=== PATIENT | female | born 1960 | race Caucasian/White ===

== ENCOUNTER 2020-03-27 23:16 | Inpatient (IN) ==
[2020-03-28 00:30] LABS: Alanine Aminotransferase 24 U/L (12-78); Albumin Level 3.1 gm/dl (3.4-5.0); Aspartate Aminotransferase 37 U/L (15-37); BUN Creatinine Ratio 10.6 (10-20); Blood Urea Nitrogen 7 mg/dl (7-18); Calcium 8.7 mg/dl (8.5-10.1); Carbon Dioxide 25 mmol/L (21-32); Chloride 103 mmol/L (98-107); Est GFR (African American) 112.4; Glucose 189 mg/dl (70-99); Lipase 159 U/L (73-393); Potassium 3.5 mmol/L (3.5-5.1); Sodium 136 mmol/L (136-145)
[2020-03-28 00:33] LABS: Albumin Globulin Ratio 0.6 (0.9-2); Alkaline Phosphatase 82 U/L (45-117); Bilirubin,Total 2.3 mg/dl (0.2-1); Globulin 5.2 gm/dl (2.5-4.0); Hematocrit (blood only) 40.4 % (37-47); Hemoglobin 14.2 g/dL (12.0-16.0); Mean Corpuscular Hemoglobin 30.9 pg (25-34); Mean Corpuscular Hgb Conc 35.1 g/dL (32-36); Mean Platelet Volume 12.5 fL (7.4-10.4); Platelet Count 64 K/uL (130-400); RDW Coefficient of Variation 14.4 % (11.5-14.5); Red Blood Count 4.59 M/uL (4.2-5.4); Total Protein 8.3 gm/dl (6.4-8.2); White Blood Count 5.47 K/uL (4.8-10.8)
[2020-03-28 00:34] LABS: Appearance Urine Clear (Clear); Bacteria Urine Automated Negative (Negative); Basophils # (auto) 0.01 K/uL (0-0.2); Basophils % (auto) 0.2 %; Bilirubin Urine Negative (Negative); Blood Urine Negative (Negative); Color Urine Dark Yellow; Eosinophils # (auto) 0.08 K/uL (0-0.5); Eosinophils % (auto) 1.5 %; Epithelial Cell Urine Auto >30 /lpf (0-5); Glucose Urine UA Negative (Negative); Immature Granulocytes # (auto) 0.01 K/uL (0.00-0.02); Immature Granulocytes % (auto) 0.2 %; Ketones Urine 1+ (Negative); Leukocyte Esterase Urine 1+ (Negative); Lymphocytes # (auto) 0.93 K/uL (1.2-3.4); Monocytes # (auto) 0.36 K/uL (0.11-0.59); Monocytes % (auto) 6.6 %; Neutrophils # (auto) 4.08 K/uL (1.4-6.5); Neutrophils % (auto) 74.5 %; Nitrite Urine Negative (Negative); Platelet Estimate Decreased (Normal); Protein Urine Negative (Negative); RBC Urine Automated 0-4 /hpf (0-4); Specific Gravity Urine 1.014 (1.000-1.030); Urobilinogen Urine Positive (Negative); pH Urine 6.5 (4.5-7.5)
[2020-03-28] MEDS ORDERED: HYDROmorphone INJ 0.5 MG/0.5 ML SYR IV STA ×2 (00:49→02:14)
[2020-03-28] MEDS ORDERED: ONDANSETRON INJ 2 MG/ML 2 ML VIAL IV STA (00:49)
[2020-03-28 01:03] LABS: INR 1.3 (0.9-1.1); Partial Thromboplastin Ratio 1.1; Partial Thromboplastin Time 29.3 Seconds (21.0-31.0); Prothrombin Time 13.6 Seconds (9.0-12.0)
[2020-03-28] MEDS ORDERED: IOVERSOL 100ml IV ONE (01:12)
[2020-03-28] MEDS ORDERED: NORCO 5/325MG HOMEPACK PO ONE (02:01)
[2020-03-28] MEDS ORDERED: LORazepam 0.5 MG/1 ML VIAL IV STA (02:20)
--- NOTE | 2020-03-28 02:31 | Emergency Department Note ---
History of Present Illness General Chief complaint: Pain (Generalized) Stated complaint: PAIN IN LIVER Source: patient, family (Son at the bedside), RN notes reviewed and old records reviewed (Previous hospitalizations) Mode of arrival: ambulatory Limitations: language barrier and patient cooperation (Pain, inability to cooperate) History of Present Illness Provider complaint: Upper abdominal pain Maximum Pain Intensity: 10 This patient is a 59-year-old female who presents emergency department with her son who states she was diagnosed in January during a hospitalization in [place] with cirrhosis of the liver, ascites, hepatitis C and diabetes. Patient apparently presented to the hospital at that time with increased abdominal girth and pain. She was visiting [place] at that time. Last week she was visiting in the [place] area and was hospitalized for umbilical leaking of ascites. Son does have some records. He states prior to this the patient had not seen a physician in years. She was unaware of her diagnosis of hepatitis C. She denies any alcohol ingestion. She has not yet established care in our area with her primary care physician or tooth cutter spur. Patient is [place]an-speaking only and unable to cooperate due to pain/agitation. Much of the history is obtained through the son. She has not had any recent fevers, cough, shortness of breath. Home Medications Medication Instructions Recorded Confirmed Type furosemide 40 mg PO DAILY 03/27/20 03/27/20 History spironolactone 50 mg PO DAILY 03/27/20 03/27/20 History Allergies Allergy/AdvReac Type Severity Reaction Status Date / Time No Known Allergies Allergy Unverified 03/28/20 01:49 Past Med/Surg History Medical History Back pain Cirrhosis of liver Hepatitis C Social History Smoking Status: Never smoker Hx Alcohol Use: No Hx Substance Use: No (Per son) Preferred Language: [place] Communication Ability: Effective Communication Tools: IPad, Letter Board, Physical Gestures and Lip Movement/Reading Skin Carver Required: Yes Beliefs That Will Affect Care: None marital status: Single Current Living Situation: Family Other Information That Helps Us Care for You: No Feels Safe at Home: Yes Assistive Devices: None Review of Systems See HPI for pertinent positives & negatives. and A total of 10 systems reviewed and were otherwise negative Physical Exam Vital Signs Vital Signs - 24 hr 03/27/20 23:26 03/28/20 00:06 03/28/20 01:55 Temperature 36.8 C Temperature Source Temporal Artery Scan Pulse Rate 81 Pulse Rate [Right] 79 84 Pulse Rhythm [Right] Regular Regular Pulse Strength [Right] Normal Normal Respiratory Rate 20 16 20 Respiratory Effort / Characteristics Non-Labored Spontaneous Non-Labored Spontaneous Respiratory Depth Normal Normal Normal Blood Pressure 139/82 Blood Pressure [Right Arm] 132/66 163/97 H Blood Pressure Mean 101 Blood Pressure Mean [Right Arm] 88 119 Blood Pressure Position [Right Arm] Lying Pulse Oximetry 97 96 92 Oxygen Delivery Method Room Air Room Air Room Air Sepsis Recent Fever Within 48 Hours No Sepsis New/Unexplained Change in Mental Status N/A Sepsis Action Taken by Nursing No Action Required Vital signs reviewed. General: Chronically ill-appearing 59-year-old female, agitated, restless, rolling around the bed and moaning/yelling. HEENT: Mild scleral icterus, PERRLA, neck supple. Dry mucous membranes. Cardiovascular: Regular rate and rhythm, no extra sounds. Pulmonary: Clear to auscultation bilaterally, normal work of breathing. Abdomen: Soft, nontender, distended, positive bowel sounds. Postsurgical change noted at the umbilicus Musculoskeletal: Atraumatic, minimal peripheral edema Neurologic: Patient awake alert and answers some questions but unable to cooperate due to pain/agitation Skin: Warm, dry, venous stasis changes of the bilateral lower extremities Course Administered Medications Enoxaparin Sodium (Enoxaparin 100 Mg/1ml Syr) 100 mg SQ Q12H JOSE DAVID Stop: 04/27/20 10:29 Last Admin: 03/31/20 09:00 Dose: 100 mg Documented by: [id number] Admin: 03/30/20 20:06 Dose: 100 mg Documented by: [id number] Admin: 03/30/20 09:48 Dose: 100 mg Documented by: [id number] Admin: 03/29/20 21:48 Dose: 100 mg Documented by: [id number] Admin: 03/29/20 09:52 Dose: 100 mg Documented by: [id number] Admin: 03/28/20 21:34 Dose: 100 mg Documented by: [id number] Admin: 03/28/20 14:08 Dose: 100 mg Documented by: [id number] Insulin Aspart (Insulin Aspart 100 Units/Ml 3 Ml Pen) 0 units SC ACHS JOSE DAVID Stop: 04/27/20 11:29 Last Admin: 03/31/20 12:50 Dose: 3 units Documented by: [id number] Cosigned by: [id number] Admin: 03/31/20 08:56 Dose: 2 units Documented by: [id number] Cosigned by: [id number] Admin: 03/30/20 20:06 Dose: 1 units Documented by: [id number] Cosigned by: [id number] Admin: 03/30/20 17:58 Dose: 3 units Documented by: [id number] Cosigned by: [id number] Admin: 03/30/20 13:18 Dose: 8 units Documented by: [id number] Cosigned by: [id number] Admin: 03/30/20 09:45 Dose: 4 units Documented by: [id number] Cosigned by: [id number] Admin: 03/29/20 20:53 Dose: 4 units Documented by: [id number] Cosigned by: [id number] Admin: 03/29/20 18:01 Dose: 6 units Documented by: [id number] Cosigned by: [id number] Admin: 03/29/20 13:16 Dose: 6 units Documented by: [id number] Cosigned by: [id number] Admin: 03/29/20 09:54 Dose: 3 units Documented by: [id number] Cosigned by: [id number] Admin: 03/28/20 21:18 Dose: 3 units Documented by: [id number] Cosigned by: [id number] Admin: 03/28/20 18:14 Dose: 6 units Documented by: [id number] Cosigned by: [id number] Admin: 03/28/20 15:29 Dose: 4 units Documented by: [id number] Cosigned by: [id number] Insulin Glargine (Insulin Glargine Solostar 100 Units/Ml 3 Ml Pen) 0 units SC BID JOSE DAVID; Protocol Stop: 04/28/20 20:59 Last Admin: 03/31/20 08:59 Dose: 10 units Documented by: [id number] Cosigned by: [id number] Admin: 03/30/20 20:05 Dose: 10 units Documented by: [id number] Cosigned by: [id number] Admin: 03/30/20 09:54 Dose: 10 units Documented by: [id number] Cosigned by: [id number] Admin: 03/29/20 20:54 Dose: 10 units Documented by: [id number] Cosigned by: [id number] Morphine Sulfate (Morphine Sulfate 2 Mg/Ml Carp) 2 mg IV Q4H PRN PRN Reason: severe breakthrough pain Stop: 04/11/20 05:07 Last Admin: 03/31/20 10:51 Dose: 2 mg Documented by: [id number] Admin: 03/29/20 14:50 Dose: 2 mg Documented by: [id number] Admin: 03/29/20 07:37 Dose: 2 mg Documented by: [id number] Ondansetron HCl (Ondansetron 4 Mg Od Tab) 4 mg PO Q4H [facility] Stop: 04/29/20 14:29 Last Admin: 03/31/20 14:49 Dose: 4 mg Documented by: [id number] Admin: 03/31/20 10:51 Dose: 4 mg Documented by: [id number] Admin: 03/31/20 06:20 Dose: Not Given Documented by: [id number] Admin: 03/31/20 04:53 Dose: Not Given Documented by: [id number] Admin: 03/30/20 23:51 Dose: Not Given Documented by: [id number] Admin: 03/30/20 18:01 Dose: 4 mg Documented by: [id number] Admin: 03/30/20 15:52 Dose: 4 mg Documented by: [id number] Polyethylene Glycol (Polyethylene (Miralax) 17 Gm Pack) 17 gm PO BID [facility] Stop: 04/27/20 08:59 Last Admin: 03/31/20 08:59 Dose: 17 gm Documented by: [id number] Admin: 03/30/20 20:10 Dose: Not Given Documented by: [id number] Admin: 03/30/20 09:48 Dose: 17 gm Documented by: [id number] Admin: 03/29/20 20:51 Dose: 17 gm Documented by: [id number] Admin: 03/29/20 09:52 Dose: 17 gm Documented by: [id number] Admin: 03/28/20 21:17 Dose: 17 gm Documented by: [id number] Admin: 03/28/20 09:46 Dose: 17 gm Documented by: [id number] Spironolactone (Spironolactone 25 Mg Tab) 50 mg PO QAM [facility] Stop: 04/30/20 08:59 Last Admin: 03/31/20 10:31 Dose: 50 mg Documented by: [id number] Tramadol HCl (Tramadol Hcl 50 Mg Tablet) 50 mg PO Q4H PRN PRN Reason: Pain Stop: 04/28/20 14:25 Last Admin: 03/31/20 14:53 Dose: 50 mg Documented by: [id number] Admin: 03/31/20 10:31 Dose: 50 mg Documented by: [id number] Admin: 03/30/20 19:58 Dose: 50 mg Documented by: [id number] Admin: 03/30/20 13:20 Dose: 50 mg Documented by: [id number] Admin: 03/30/20 03:44 Dose: 50 mg Documented by: [id number] Admin: 03/29/20 20:51 Dose: 50 mg Documented by: [id number] Discontinued Medications Hydrocodone Bitart/Acetaminophen ([place] 5/325mg Homepack) 1 homepack PO UD ONE Stop: 03/28/20 02:02 Last Admin: 03/28/20 02:29 Dose: Not Given Documented by: [id number] Hydromorphone HCl (Hydromorphone Inj 0.5 Mg/0.5 Ml Syr) 0.5 mg IV NOW STA Stop: 03/28/20 00:50 Last Admin: 03/28/20 00:54 Dose: 0.5 mg Documented by: [id number] Hydromorphone HCl (Hydromorphone Inj 0.5 Mg/0.5 Ml Syr) 0.5 mg IV NOW STA Stop: 03/28/20 02:15 Last Admin: 03/28/20 02:34 Dose: 0.5 mg Documented by: [id number] Lorazepam (Ativan) 0.5 mg in 1 mls @ 1 mls/min IV NOW STA Stop: 03/28/20 02:21 Last Admin: 03/28/20 02:34 Dose: 1 mls/min Documented by: [id number] Insulin Glargine (Insulin Glargine Solostar 100 Units/Ml 3 Ml Pen) 10 units SC NOW ONE Stop: 03/28/20 14:46 Last Admin: 03/28/20 15:29 Dose: 10 units Documented by: [id number] Cosigned by: [id number] Insulin Glargine (Insulin Glargine Solostar 100 Units/Ml 3 Ml Pen) 0 units SC HS ONE; Protocol Stop: 03/28/20 21:01 Last Admin: 03/28/20 21:18 Dose: 10 units Documented by: [id number] Cosigned by: [id number] Insulin Glargine (Insulin Glargine Solostar 100 Units/Ml 3 Ml Pen) 10 units SC BID JOSE DAVID Stop: 04/28/20 08:59 Last Admin: 03/29/20 09:53 Dose: 10 units Documented by: [id number] Cosigned by: [id number] Ioversol (Ioversol 100ml) 100 ml IV ONCE ONE Stop: 03/28/20 01:13 Last Admin: 03/28/20 01:13 Dose: 93 ml Documented by: [id number] Ioversol (Ioversol 100ml) 92 ml IV ONCE ONE Stop: 03/30/20 18:56 Last Admin: 03/30/20 18:57 Dose: 92 ml Documented by: [id number] Morphine Sulfate (Morphine Sulfate 4 Mg/Ml 1 Ml Carp\Vial) 4 mg IV Q4H PRN PRN Reason: Pain (6,7,8,9,10) Stop: 04/11/20 05:07 Last Admin: 03/29/20 02:03 Dose: 4 mg Documented by: [id number] Admin: 03/28/20 21:33 Dose: 4 mg Documented by: [id number] Admin: 03/28/20 14:09 Dose: 4 mg Documented by: [id number] Admin: 03/28/20 09:09 Dose: 4 mg Documented by: [id number] Admin: 03/28/20 05:14 Dose: 4 mg Documented by: [id number] Ondansetron HCl (Ondansetron Inj 2 Mg/Ml 2 Ml Vial) 4 mg IV NOW STA Stop: 03/28/20 00:50 Last Admin: 03/28/20 00:54 Dose: 4 mg Documented by: [id number] Ondansetron HCl (Ondansetron Inj 2 Mg/Ml 2 Ml Vial) 4 mg IV Q6H PRN PRN Reason: Nausea Stop: 04/27/20 05:07 Last Admin: 03/28/20 09:13 Dose: 4 mg Documented by: [id number] Ondansetron HCl (Ondansetron Inj 2 Mg/Ml 2 Ml Vial) 4 mg IV Q4H PRN PRN Reason: Nausea Stop: 04/27/20 05:07 Last Admin: 03/29/20 14:50 Dose: 4 mg Documented by: [id number] Admin: 03/29/20 07:37 Dose: 4 mg Documented by: [id number] Admin: 03/29/20 02:03 Dose: 4 mg Documented by: [id number] Admin: 03/28/20 21:34 Dose: 4 mg Documented by: [id number] Spironolactone (Spironolactone 25 Mg Tab) 25 mg PO QAM [facility] Stop: 04/28/20 08:59 Last Admin: 03/30/20 09:47 Dose: 25 mg Documented by: [id number] Admin: 03/29/20 09:51 Dose: 25 mg Documented by: [id number] Tramadol HCl (Tramadol Hcl 50 Mg Tablet) 50 mg PO NOW STA Stop: 03/30/20 15:44 Last Admin: 03/30/20 15:52 Dose: 50 mg Documented by: [id number] Warfarin Sodium (Warfarin Sod 5 Mg Tab) 5 mg PO DAILY@1600 JOSE DAVID Stop: 04/28/20 15:59 Last Admin: 03/30/20 15:53 Dose: 5 mg Documented by: [id number] Admin: 03/29/20 16:44 Dose: 5 mg Documented by: [id number] Warfarin Sodium (Warfarin Sod 7.5 Mg Tab) 15 mg PO 1600 ONE Stop: 03/31/20 16:01 Last Admin: 03/31/20 17:15 Dose: 15 mg Documented by: [id number] Medical Decision Making Differential Diagnosis SBP, pneumonia, pleural effusion, ascites, abdominal distention, bowel obstruction, biliary obstruction, pancreatitis, cholecystitis, shingles, UTI/pyelonephritis, kidney stone Medical Records Attestation: I reviewed the patient's medical records. Home Medications Current Medication List: was personally reviewed by me Laboratory Data Attestation: I reviewed the patient's lab results. Result diagrams: 03/31/20 06:10 03/31/20 06:10 Lab Results 03/27/20 03/27/20 03/27/20 Range/Units 23:56 23:56 23:56 WBC 5.47 (4.8-10.8) K/uL RBC 4.59 (4.2-5.4) M/uL Hgb 14.2 (12.0-16.0) g/dL Hct 40.4 (37-47) % MCV 88.0 (80-100) fL MCH 30.9 (25-34) pg MCHC 35.1 (32-36) g/dL RDW Std Deviation 46.0 (36.4-46.3) fL RDW Coeff of Meg 14.4 (11.5-14.5) % Plt Count 64 L (130-400) K/uL MPV 12.5 H (7.4-10.4) fL Immature Gran % (Auto) 0.2 % Neut % (Auto) 74.5 % Lymph % (Auto) 17.0 % [place] % (Auto) 6.6 % Eos % (Auto) 1.5 % Baso % (Auto) 0.2 % Neut # (Auto) 4.08 (1.4-6.5) K/uL Lymph # (Auto) 0.93 L (1.2-3.4) K/uL [place] # (Auto) 0.36 (0.11-0.59) K/uL Eos # (Auto) 0.08 (0-0.5) K/uL Baso # (Auto) 0.01 (0-0.2) K/uL Immature Gran # (Auto) 0.01 (0.00-0.02) K/uL Platelet Estimate Decreased L (Normal) PT (9.0-12.0) Seconds INR (0.9-1.1) APTT (21.0-31.0) Seconds PTT Ratio Sodium 136 (136-145) mmol/L Potassium 3.5 (3.5-5.1) mmol/L Chloride 103 (98-107) mmol/L Carbon Dioxide 25 (21-32) mmol/L Anion Gap 8.0 (3-11) BUN 7 (7-18) mg/dl Creatinine 0.64 (0.6-1.2) mg/dl Est Cr Clr Drug Dosing Not Reportable Est GFR ( Amer) 112.4 Est GFR (Non-Af Amer) 97.0 BUN/Creatinine Ratio 10.6 (10-20) Glucose 189 H (70-99) mg/dl Calcium 8.7 (8.5-10.1) mg/dl Total Bilirubin 2.3 H (0.2-1) mg/dl AST 37 (15-37) U/L ALT 24 (12-78) U/L Alkaline Phosphatase 82 (45-117) U/L Total Protein 8.3 H (6.4-8.2) gm/dl Albumin 3.1 L (3.4-5.0) gm/dl Globulin 5.2 H (2.5-4.0) gm/dl Albumin/Globulin Ratio 0.6 L (0.9-2) Lipase 159 (73-393) U/L Urine Color Dark Yellow Urine Appearance Clear (Clear) Urine pH 6.5 (4.5-7.5) Ur Specific [place] 1.014 (1.000-1.030) Urine Protein Negative (Negative) Urine Glucose (UA) Negative (Negative) Urine Ketones 1+ H (Negative) Urine Blood Negative (Negative) Urine Nitrite Negative (Negative) Urine Bilirubin Negative (Negative) Urine Urobilinogen Positive H (Negative) Ur Leukocyte Esterase 1+ H (Negative) Urine WBC (Auto) 10-30 H (0-5) /hpf Urine RBC (Auto) 0-4 (0-4) /hpf U Hyaline Cast (Auto) 1-5 (0-5) /lpf U Epithel Cells (Auto) >30 H (0-5) /lpf Urine Bacteria (Auto) Negative (Negative) 03/27/20 Range/Units 23:56 WBC (4.8-10.8) K/uL RBC (4.2-5.4) M/uL Hgb (12.0-16.0) g/dL Hct (37-47) % MCV (80-100) fL MCH (25-34) pg MCHC (32-36) g/dL RDW Std Deviation (36.4-46.3) fL RDW Coeff of Meg (11.5-14.5) % Plt Count (130-400) K/uL MPV (7.4-10.4) fL Immature Gran % (Auto) % Neut % (Auto) % Lymph % (Auto) % [place] % (Auto) % Eos % (Auto) % Baso % (Auto) % Neut # (Auto) (1.4-6.5) K/uL Lymph # (Auto) (1.2-3.4) K/uL [place] # (Auto) (0.11-0.59) K/uL Eos # (Auto) (0-0.5) K/uL Baso # (Auto) (0-0.2) K/uL Immature Gran # (Auto) (0.00-0.02) K/uL Platelet Estimate (Normal) PT 13.6 H (9.0-12.0) Seconds INR 1.3 H (0.9-1.1) APTT 29.3 (21.0-31.0) Seconds PTT Ratio 1.1 Sodium (136-145) mmol/L Potassium (3.5-5.1) mmol/L Chloride (98-107) mmol/L Carbon Dioxide (21-32) mmol/L Anion Gap (3-11) BUN (7-18) mg/dl Creatinine (0.6-1.2) mg/dl Est Cr Clr Drug Dosing Est GFR ( Amer) Est GFR (Non-Af Amer) BUN/Creatinine Ratio (10-20) Glucose (70-99) mg/dl Calcium (8.5-10.1) mg/dl Total Bilirubin (0.2-1) mg/dl AST (15-37) U/L ALT (12-78) U/L Alkaline Phosphatase (45-117) U/L Total Protein (6.4-8.2) gm/dl Albumin (3.4-5.0) gm/dl Globulin (2.5-4.0) gm/dl Albumin/Globulin Ratio (0.9-2) Lipase (73-393) U/L Urine Color Urine Appearance (Clear) Urine pH (4.5-7.5) Ur Specific [place] (1.000-1.030) Urine Protein (Negative) Urine Glucose (UA) (Negative) Urine Ketones (Negative) Urine Blood (Negative) Urine Nitrite (Negative) Urine Bilirubin (Negative) Urine Urobilinogen (Negative) Ur Leukocyte Esterase (Negative) Urine WBC (Auto) (0-5) /hpf Urine RBC (Auto) (0-4) /hpf U Hyaline Cast (Auto) (0-5) /lpf U Epithel Cells (Auto) (0-5) /lpf Urine Bacteria (Auto) (Negative) Imaging Data Radiologist's Impression: CT ABDOMEN & PELVIS With Contrast: Signs of cirrhosis including a shrunken and nodular liver, enlarged spleen measuring 20 cm, small amount of cirrhosis measuring 3.8 cm thick adjacent to the liver and esophageal and gastric varices as well as a recanalized paraumbilical vein. Portal vein is upper limits of normal measuring 1.6 cm and patent. Trace right pleural effusion measuring 1 cm. Diffuse edema throughout the abdomen. Bowel loops are nondilated. The inflammatory changes are difficult to assess due to the ascites and diffuse edema. No focal bowel wall abnormality is identified. No pneumoperitoneum or abscess. The kidneys, urinary bladder, uterus, adnexa appear within normal limits. Mild to moderate multilevel degenerative changes in the spine. No acute fracture or subluxation is seen. Radiologist: Maxi Myrick MD Study ready at 01:38 and initial results transmitted at 01:49 Blood Pressure Blood Pressure Findings: Elevated blood pressure Blood Pressure Disposition: further management by hospitalist MDM Narrative This patient was evaluated and appeared to be in significant discomfort. IV access was obtained and laboratory work was drawn. The patient was medicated with IV Dilaudid and Zofran. An order for cardiac monitoring was placed and the patient is noted to be in a normal sinus rhythm at 79 bpm. Patient's vital signs are stable with a slightly elevated blood pressure, likely secondary to pain. Patient was medicated with Zosyn 4.5 g IV. Laboratory work reveals a normal WBC at 5.47, INR of 1.3 with a hemoglobin of 14.2. Patient does have a slightly elevated bilirubin at 2.3. CT imaging of the abdomen pelvis was performed and reveals no acute abnormality, there is evidence of a trace right pleural effusion, cirrhotic liver and abdominal ascites however no bowel obstruction or inflammatory process noted otherwise. No evidence of pneumoper itoneum. As the patient is afebrile, with normal WBC, no antibiotics were given. Patient does not seem to have any rebound or guarding. I suspect this pain is largely related to reaccumulating ascites. The patient's most recent hospitalization last week was secondary to umbilical rupture and ascites drainage. Son does states she had this type of pain prior to each hospitalization. I did discuss the option of discharge with the son however the patient's anxiety and pain escalated. The patient has not established with any providers in the area and has advanced liver disease. She will require aggressive management and pain control. She was ordered additional IV Dilaudid and 0.5 mg of IV Ativan as she was fairly agitated. Case was referred to Dr. Cooepr of the hospitalist service for further management. Impression & Plan Right upper quadrant abdominal pain, Cirrhosis of liver, Hepatitis C Discharge Plan Visit Data Chief Complaint: Pain (Generalized) Stated Complaint: PAIN IN LIVER ED Provider: Madeleine Glover Discharge Problem: Right upper quadrant abdominal pain, Cirrhosis of liver, Hepatitis C Patient Disposition: Home - Self-Care Condition: Fair Discharge Instructions Interventions: ED Discharge Assessment Last Done: 03/28/20 04:52 Discharge Problem: Cirrhosis of liver Qualifiers: Hepatic cirrhosis type: unspecified hepatic cirrhosis Ascites presence: with ascites Qualified Code(s): K74.60 - Unspecified cirrhosis of liver Hepatitis C Qualifiers: Viral hepatitis chronicity: chronic Hepatic coma status: without hepatic coma Qualified Code(s): B18.2 - Chronic viral hepatitis C
--- NOTE | 2020-03-28 03:04 | History & Physical Report ---
Date of Service March 28, 2020 Assessment & Plan (1) Cirrhosis of liver: #Right upper quadrant abdominal pain secondary to cirrhosis with ascites complicated by thrombocytopenia Patient has a distended, full abdomen, and a recent history of ascites leaking through her umbilicus. She states prior to her previous hospitalization she is experienced similar symptoms. Including abdominal fullness and right upper quadrant tenderness. The symptoms collectively taken with imaging and lab fin dings likely suggest that the majority of her pain is coming from pressure secondary to ascites. There is no indication for urgent paracentesis. The patient will need consultation with GI, establishment of a primary care provider, and routine outpatient follow-up. In the interim we will admit her overnight, provide pain control, and consult gastroenterology. -Admit to MedSurg -Morphine 2 mg every 4 hours as needed -Follow-up a.m. coags -Follow-up a.m. CMP -Monitor for the development of bleeding -Meld score of 14 -Consult GI #Hepatitis C Recently diagnosed while hospitalized in [place] -Follow-up GI #Diabetes Not on home meds -Glycemic consult placed #Discharge planning Patient does not currently have insurance, her son has been in the process of attempting to obtain this for her, they also do not have an outpatient PCP or GI. Appreciate case management's assistance with discharge planning FENa: Low-salt diet/diabetes diet Code Status: Full code DVT PPX: SCDs PT/OT: Ordered Dispo: Eliana Myrick MD PGY 3, FCM This chart was completed utilizing [employer]sequence[employer] voice recognition software. Grammatical errors, random word insertions, pronoun errors, and in complete sentences are an occasional consequence of the system. Any questions or concerns about the content, text, or information contained within the body of this dictation should be addressed directly to the physician for clarification. (2) Hepatitis C: (3) Right upper quadrant abdominal pain: (4) Diabetes: (5) Thrombocytopenia: History of Present Illness Patient is a 59-year-old female with a past medical history of liver cirrhosis recently diagnosed with hospitalized in [place], ascites, hepatitis C, and d iabetes, hospitalized last week in [place] for umbilical leaking of ascites, for evaluation of pain in her right upper quadrant. Patient is Prydeinig-speaking only and much of the history has been obtained through her son. She has had no recent constitutional symptoms, denying any recent fevers, cough, shortness of breath, other constitutional symptoms. She does not have an established primary care physician or area or criminal investigative agent and has not received routine medical care. She states that her pain is similar to the prior times when she is presented to the hospital, they have never found a small bowel obstruction, or other surgical acute abdomen, and the thought has been in the past that her pain is secondary to ascites. The pain starts in her abdomen is pressure and slowly expands radially towards her back where it becomes a burning sensation. She has been voiding and stooling appropriately, and does not endorse pain anywhere else. They have not had adequate outpatient follow-up as they do not have insurance, and are new to the area. Upon presentation the emergency department she had routine labs, CBC Within normal limits, platelets of 64, INR of 1.3, CMP showed glucose of 189, bilirubin of 2.3, liver enzymes within normal limits, albumin 3.1, UA overall appeared negative, positive for 10-30 WBCs and epithelial cells present, Covid negative. Imaging was obtained CT of abdomen and pelvis demonstrated signs of cirrhosis including shrunken and nodular liver, enlarged spleen, esophageal and gastric varices, diffuse edema throughout the abdomen no focal bowel wall abnormalities no pneumoperitoneum or abscess.The emergency room physicians did discuss with her the possibility of discharge, however pain and anxiety escalated. The hospital team was consulted for admission for aggressive management of her symptoms and pain control. Primary Care Provider: NO PCP Allergies Allergy/AdvReac Type Severity Reaction Status Date / Time No Known Allergies Allergy Unverified 03/28/20 01:49 Home Medications Medication Instructions Recorded Confirmed Type furosemide 40 mg PO DAILY 03/27/20 03/27/20 History spironolactone 50 mg PO DAILY 03/27/20 03/27/20 History Past Med/Surg History Medical History Back pain Cirrhosis of liver Hepatitis C Social History Smoking Status: Never smoker Hx Alcohol Use: No Hx Substance Use: No (Per son) Preferred Language: Prydeinig Communication Ability: Effective Communication Tools: IPad, Letter Board, Physical Gestures and Lip Movement/Reading Insights Manager Required: Yes Beliefs That Will Affect Care: None marital status: Single Current Living Situation: Family Other Information That Helps Us Care for You: No Feels Safe at Home: Yes Assistive Devices: None Review of Systems Review of Systems: All systems reviewed & are unremarkable except as noted in HPI & below Physical Exam Physical Exam: General:Lying in bed in pain HEENT: Normocephalic atraumatic Neck: Normal to visual inspection did not appreciate significant JVD Cardiac: Regular rate and rhythm I did not appreciate significant murmurs rubs or gallops, normal S1, normal S2, negative pedal edema, negative calf tenderness Respiratory: Clear to auscultation bilaterally with symmetrical chest expansion I did not appreciate significant wheezes, rales, rhonchi GI: Grossly distended, nontender to palpation, fluid wave present, negative CVA tenderness, bowel sounds present MSK: Moves all extremities Skin: Bilateral lower extremity venous stasis ulcers Neuro: Alert and oriented x4 Psych: Calm and cooperative Results & Data Results & Data ([facility]) Vital Signs (Past 12 Hours) Vital Signs Temp Pulse Pulse Resp BP BP Pulse Ox 03/28/20 01:55 84 20 163/97 H 92 03/28/20 00:06 79 16 132/66 96 03/27/20 23:26 36.8 C 81 20 139/82 97 Laboratory Results 03/28/20 03/27/20 03/27/20 Range/Units Unknown 23:56 23:56 WBC (4.8-10.8) K/uL RBC (4.2-5.4) M/uL Hgb (12.0-16.0) g/dL Hct (37-47) % MCV (80-100) fL MCH (25-34) pg MCHC (32-36) g/dL RDW Std Deviation (36.4-46.3) fL RDW Coeff of Meg (11.5-14.5) % Plt Count (130-400) K/uL MPV (7.4-10.4) fL Immature Gran % (Auto) % Neut % (Auto) % Lymph % (Auto) % Gibson % (Auto) % Eos % (Auto) % Baso % (Auto) % Neut # (Auto) (1.4-6.5) K/uL Lymph # (Auto) (1.2-3.4) K/uL Gibson # (Auto) (0.11-0.59) K/uL Eos # (Auto) (0-0.5) K/uL Baso # (Auto) (0-0.2) K/uL Immature Gran # (Auto) (0.00-0.02) K/uL Platelet Estimate (Normal) PT 13.6 H (9.0-12.0) Seconds INR 1.3 H (0.9-1.1) APTT 29.3 (21.0-31.0) Seconds PTT Ratio 1.1 Sodium (136-145) mmol/L Potassium (3.5-5.1) mmol/L Chloride (98-107) mmol/L Carbon Dioxide (21-32) mmol/L Anion Gap (3-11) BUN (7-18) mg/dl Creatinine (0.6-1.2) mg/dl Est Cr Clr Drug Dosing Est GFR ( Amer) Est GFR (Non-Af Amer) BUN/Creatinine Ratio (10-20) Glucose (70-99) mg/dl Calcium (8.5-10.1) mg/dl Total Bilirubin (0.2-1) mg/dl AST (15-37) U/L ALT (12-78) U/L Alkaline Phosphatase (45-117) U/L Total Protein (6.4-8.2) gm/dl Albumin (3.4-5.0) gm/dl Globulin (2.5-4.0) gm/dl Albumin/Globulin Ratio (0.9-2) Lipase (73-393) U/L Urine Color Dark Yellow Urine Appearance Clear (Clear) Urine pH 6.5 (4.5-7.5) Ur Specific [place] 1.014 (1.000-1.030) Urine Protein Negative (Negative) Urine Glucose (UA) Negative (Negative) Urine Ketones 1+ H (Negative) Urine Blood Negative (Negative) Urine Nitrite Negative (Negative) Urine Bilirubin Negative (Negative) Urine Urobilinogen Positive H (Negative) Ur Leukocyte Esterase 1+ H (Negative) Urine WBC (Auto) 10-30 H (0-5) /hpf Urine RBC (Auto) 0-4 (0-4) /hpf U Hyaline Cast (Auto) 1-5 (0-5) /lpf U Epithel Cells (Auto) >30 H (0-5) /lpf Urine Bacteria (Auto) Negative (Negative) SARS-CoV-2 Ag (Rapid) Negative (Negative) 03/27/20 03/27/20 Range/Units 23:56 23:56 WBC 5.47 (4.8-10.8) K/uL RBC 4.59 (4.2-5.4) M/uL Hgb 14.2 (12.0-16.0) g/dL Hct 40.4 (37-47) % MCV 88.0 (80-100) fL MCH 30.9 (25-34) pg MCHC 35.1 (32-36) g/dL RDW Std Deviation 46.0 (36.4-46.3) fL RDW Coeff of Meg 14.4 (11.5-14.5) % Plt Count 64 L (130-400) K/uL MPV 12.5 H (7.4-10.4) fL Immature Gran % (Auto) 0.2 % Neut % (Auto) 74.5 % Lymph % (Auto) 17.0 % Gibson % (Auto) 6.6 % Eos % (Auto) 1.5 % Baso % (Auto) 0.2 % Neut # (Auto) 4.08 (1.4-6.5) K/uL Lymph # (Auto) 0.93 L (1.2-3.4) K/uL Gibson # (Auto) 0.36 (0.11-0.59) K/uL Eos # (Auto) 0.08 (0-0.5) K/uL Baso # (Auto) 0.01 (0-0.2) K/uL Immature Gran # (Auto) 0.01 (0.00-0.02) K/uL Platelet Estimate Decreased L (Normal) PT (9.0-12.0) Seconds INR (0.9-1.1) APTT (21.0-31.0) Seconds PTT Ratio Sodium 136 (136-145) mmol/L Potassium 3.5 (3.5-5.1) mmol/L Chloride 103 (98-107) mmol/L Carbon Dioxide 25 (21-32) mmol/L Anion Gap 8.0 (3-11) BUN 7 (7-18) mg/dl Creatinine 0.64 (0.6-1.2) mg/dl Est Cr Clr Drug Dosing Not Reportable Est GFR ( Amer) 112.4 Est GFR (Non-Af Amer) 97.0 BUN/Creatinine Ratio 10.6 (10-20) Glucose 189 H (70-99) mg/dl Calcium 8.7 (8.5-10.1) mg/dl Total Bilirubin 2.3 H (0.2-1) mg/dl AST 37 (15-37) U/L ALT 24 (12-78) U/L Alkaline Phosphatase 82 (45-117) U/L Total Protein 8.3 H (6.4-8.2) gm/dl Albumin 3.1 L (3.4-5.0) gm/dl Globulin 5.2 H (2.5-4.0) gm/dl Albumin/Globulin Ratio 0.6 L (0.9-2) Lipase 159 (73-393) U/L Urine Color Urine Appearance (Clear) Urine pH (4.5-7.5) Ur Specific [place] (1.000-1.030) Urine Protein (Negative) Urine Glucose (UA) (Negative) Urine Ketones (Negative) Urine Blood (Negative) Urine Nitrite (Negative) Urine Bilirubin (Negative) Urine Urobilinogen (Negative) Ur Leukocyte Esterase (Negative) Urine WBC (Auto) (0-5) /hpf Urine RBC (Auto) (0-4) /hpf U Hyaline Cast (Auto) (0-5) /lpf U Epithel Cells (Auto) (0-5) /lpf Urine Bacteria (Auto) (Negative) SARS-CoV-2 Ag (Rapid) (Negative) Code Status & VTE Plan Code Status full VTE Prophylaxis Plan VTE Prophylaxis will be ordered: Yes Supervising Physician Co-Signing Physician Notes Attending addendum: I have physically seen this patient, have supervised the medical residents activities, and agree with the H&P unless as otherwise noted. Assessment and Plan: Liver cirrhosis/hepatitis C/ascites/anasarca/Splenomegaly/esophageal and gastric varices- NPO Order ultrasound-guided paracentesis, both diagnostic and therapeutic For now hold furosemide and spironolactone Follow serial CBC with differential, chemistry profile and magnesium levels. Follow PT/PTT/INR Consult gastroenterology Hepatitis C- Unclear extent of work-up. Consult gastroenterology Diabetes mellitus- Patient Accu-Cheks before meals and at bedtime with NovoLog coverage per scale Remaining orders and notations as noted Resident Activity Tracking Resident Involvement: Resident Care Provided Care Provided: Adult Hospital Medicine (1) Cirrhosis of liver Ascites presence: with ascites Hepatic cirrhosis type: unspecified hepatic cirrhosis Qualified Code(s): K74.60 - Unspecified cirrhosis of liver; R18.8 - Other ascites (2) Hepatitis C Hepatic coma status: without hepatic coma Viral hepatitis chronicity: chronic Qualified Code(s): B18.2 - Chronic viral hepatitis C
[2020-03-28] MEDS ORDERED: ONDANSETRON INJ 2 MG/ML 2 ML VIAL IV PRN (05:08)
[2020-03-28] MEDS: MoRPHine SULFATE 4 MG/ML 1 ML CARP\\VIAL IV PRN ×4 (05:14→21:33)
[2020-03-28] MEDS ORDERED: PATIENT'S HEIGHT AND/OR WEIGHT NEEDED SCH (05:15)
[2020-03-28] MEDS ORDERED: PHARMACY GLYCEMIC MGMT CONSULT PRN (07:55)
[2020-03-28] MEDS ORDERED: GLUCOSE 40% GEL 15 GM TUBE PO PRN (08:00)
[2020-03-28] MEDS ORDERED: CARBOHYDRATES FOR HYPOGLYCEMIA PO PRN (08:00)
[2020-03-28] MEDS ORDERED: GLUCOSE 10 TABS/TUBE PO PRN (08:00)
[2020-03-28] MEDS ORDERED: GLUCAGON FOR INJ 1 MG VIAL SQ PRN (08:00)
[2020-03-28] MEDS ORDERED: DEXTROSE 50% 50 ML SYRINGE IV PRN (08:00)
--- NOTE | 2020-03-28 08:55 | Hospitalist Progress Note ---
Date of Service March 28, 2020 Assessment & Plan (1) Cirrhosis of liver: Inessa Toscano is a 59yo female with recently-diagnosed liver cirrhosis, hepatitis C, and DM2, with recent hospitalization in [place] for umbilical leaking of ascites, who presents with a 1-2 day history of RUQ pain progressing to diffuse abdominal pain, back pain, bloating, and nausea. RUQ pain, back pain, bloating, portal vein thrombosis -pain, ascites likely due to portal vein thrombosis as seen on CT abdomen/pelvis -AST 27, ALT 24, AlkP 82, Tbili 2.3, INR 1.3 -GI consult placed; recommendations appreciated -patient placed on therapeutic lovenox 100mg sq q12h -morphine 2mg IV q4h prn, morphine 4mg IV q4h prn -coags qAM -CMP qAM -monitor for development of bleeding -MELD score 14 -paracentesis performed today -peritoneal fluid cell count, total protein, LDH, culture, and cytology pending Hepatitis C -recently diagnosed while hospitalized in [place] -cirrhotic liver morphology on CT -patient has no outpatient tin can feeder -appreciate GI recommendations DM2 -not on home meds -patient has no PCP -glycemic consult placed -A1c tomorrow Discharge planning -patient does not have insurance, PCP, or outpatient tin can feeder -case management consult placed FENGI: low sodium, DM2 diet Code status: full code DVT ppx: on therapeutic lovenox Dispo: med/surg Admission and Anticipated Discharge Date Admission Date: March 28, 2020 Supervising Physician Co-Signing Physician Notes I personally examined the patient and verified all garcia points of history and exam, discussed case, and agree with decision making with Dr Amaro feeling better post paracentesis. extensive discussion through medical billing instructor. vitals noted nad heent nc at mmm breathing unlabored no accessory muscles. cirrhosis w portal hypertension and portal vein thrombosis -related to hep C -dx / tx para done today (<250 neutrophils, doubt SBP) -continue supportive care -anticoagulation -spironolactone, possibly lasix w caution -will need ongoing close outpt f/u w PCP and GI otherwise as above Subjective Patient was seen at bedside this morning. She was in moderate to severe pain and appeared very uncomfortable. We conversed using the Tongan sand mixer on the iPad. She reports a 1-2 day history of worsening abdominal pain in the setting of recent diagnosis last month with hepatitis C and liver cirrhosis, and hospitalization last week in [place] for (per chart) umbilical leaking of ascites. She is currently nauseous as well but has not vomited. She endorses low appetite and lightheadedness while in bed. She denies other symptoms including CP, constipation, diarrhea, palpitations, recent fever, or other symptoms. Morphine was administered while I was interviewing patient and by the end of the interview she was feeling slightly better. Review of Systems Constitutional: no fever and no chills Respiratory: no cough and no dyspnea Cardiovascular: no chest pain and no palpitations Gastrointestinal: + abdominal pain, + nausea and + vomiting; no constipation and no diarrhea/loose stools Genitourinary: no dysuria Physical Exam Constitutional: + ill appearing and cooperative Respiratory: normal respiratory effort, lungs clear to auscultation Cardiovascular: RRR, no murmur, no edema Gastrointestinal (Abdomen): Percussion/Palpation: abdomen soft; no guarding moderate tenderness to palpation in all four quadrants, hypoactive BS in all four quadrants Psychiatric: A+Ox3, euthymic affect Results & Data Results & Data ([facility]) Vital Signs (Past 12 Hours) Vital Signs Temp Pulse Pulse Resp BP BP BP 03/28/20 07:30 36.8 C 91 H 18 146/98 H 03/28/20 05:12 03/28/20 05:09 36.8 C 85 18 158/88 H 03/28/20 04:52 84 16 168/90 H 03/28/20 03:12 85 16 141/83 H 03/28/20 01:55 84 20 163/97 H 03/28/20 00:06 79 16 132/66 03/27/20 23:26 36.8 C 81 20 139/82 Pulse Ox 03/28/20 07:30 96 03/28/20 05:12 97 03/28/20 05:09 97 03/28/20 04:52 98 03/28/20 03:12 96 03/28/20 01:55 92 03/28/20 00:06 96 03/27/20 23:26 97 (1) Cirrhosis of liver Ascites presence: with ascites Hepatic cirrhosis type: unspecified hepatic cirrhosis Qualified Code(s): K74.60 - Unspecified cirrhosis of liver; R18.8 - Other ascites
--- NOTE | 2020-03-28 09:13 | CT Scan Report ---
CT SCAN OF THE ABDOMEN AND PELVIS WITH IV CONTRAST CLINICAL HISTORY: Right upper quadrant abdominal pain. Elevated bilirubin. COMPARISON STUDY: Lumbar spine radiographs dated 09/06/2014. TECHNIQUE: Following the IV administration of 93 cc of Optiray 320, CT scan of the abdomen and pelvis is performed from the lung bases to the proximal femora. Images are reviewed in the axial, sagittal, and coronal planes. IV contrast administered without complication. A dose lowering technique was uti lized adhering to the principles of ALARA. CT DOSE: 1462.88 mGy.cm FINDINGS: Lung bases: The heart is normal in size and without pericardial effusion. There is a small right pleu ral effusion with associated atelectasis. No airspace consolidation is seen typical for pneumonia. Th ere is a small hiatal hernia. Esophageal varices are noted. Liver: The contrast-enhanced liver is cirrhotic in morphology and heterogeneous in attenuation. There is hypertrophy of the left lobe and caudate as well as nodularity of the surface contour. There is n o intrahepatic biliary ductal dilatation. The hepatic veins are patent. There is nonocclusive thrombu s within the main portal vein seen on image #144. There is significant thrombus identified the portos plenic confluence, and nearly occlusive thrombus within the superior mesenteric vein seen on image #1 87. Trace thrombus is present in the distal splenic vein on image #175. There is recanalization of th e periumbilical vein. Gallbladder: Grossly unremarkable. Spleen: The spleen is markedly enlarged measuring 19.7 cm in length. There are perigastric and perisp lenic varices. Pancreas: Moderately atrophic and grossly unremarkable. Adrenal glands: Unremarkable. Kidneys: The contrast-enhanced kidneys demonstrate cortical atrophy and are without hydronephrosis. T he kidneys enhance symmetrically. Abdominal vasculature: The abdominal aorta is normal in course and caliber noting mild atheroscleroti c calcification. Bowel: The gastric mucosa appears thickened and hyperemic. There are thick walled and edematous loops of small bowel in the lower abdomen and pelvis. No bowel obstruction is seen. Mild wall thickening i s also seen involving the right colon. The appendix is not clearly visualized. Peritoneum: There is a moderate volume of abdominopelvic ascites. No intraperitoneal free air is seen . Lymphadenopathy: Mildly enlarged lymph nodes in the breana hepatis and portacaval region are likely re lated to chronic liver disease. Pelvic viscera: The bladder is normal as imaged. The endometrium appears thickened and heterogeneous measuring up to 1.9 cm. No adnexal lesion is seen. Skeletal structures: The skeletal structures are osteopenic. There is mild to moderate lumbosacral sp ondylosis. No lytic or blastic lesions are seen. IMPRESSION: 1. There is nonocclusive thrombus in the main portal vein. Nearly occlusive thrombus is identified at the portosplenic confluence as well as in the superior mesenteric vein. 2. There are thick walled and edematous loops of small bowel in the lower abdomen and pelvis with ass ociated mesenteric venous congestion. This likely represents venous insufficiency secondary to mesent janae venous thrombus. Correlate clinically for evidence of a superimposed infectious enteritis. 3. Trace thrombus is also seen within the splenic vein. 4. Cirrhotic liver morphology. 5. There is evidence of portal hypertension including a moderate volume of abdominopelvic ascites, ma rked splenomegaly, upper abdominal varices, esophageal varices, and recanalization of the periumbilic al vein. 6. The gastric mucosa appears thickened and hyperemic. Correlate clinically for evidence of gastritis . This could be further assessed with endoscopy if clinically warranted. 7. Mild wall thickening of the right colon likely represents portal colopathy. 8. Small right pleural effusion. 9. The endometrium appears heterogeneous and thickened for age measuring up to 1.9 cm. Follow-up with a nonemergent pelvic ultrasound and gynecology assessment is recommended. 10. Additional findings as above. ACT 112: Negative or not required by law. Electronically signed by: Janae Daley M.D. 03/28/2020 9:12 AM
[2020-03-28] MEDS: POLYETHYLENE (MIRALAX) 17 GM PACK PO SCH ×2 (09:46→21:17)
--- NOTE | 2020-03-28 12:34 | Electrocardiogram Report ---
Test Reason : Blood Pressure : / mmHG Vent. Rate : 083 BPM Atrial Rate : 083 BPM P-R Int : 152 ms QRS Dur : 082 ms QT Int : 392 ms P-R-T Axes : 061 -03 -01 degrees QTc Int : 460 ms Poor data quality, interpretation may be adversely affected Normal sinus rhythm Minimal voltage criteria for LVH, may be normal variant Poor R wave progression, consider anterior HI vs. lead placement vs. LVH Nonspecific T wave abnormality Abnormal ECG No previous ECGs available Confirmed by Kendall Emanuel ([id number]) on 03/28/2020 12:34:16 PM Referred By: REFERRED SELF Confirmed By:Kendall Emanuel
[2020-03-28] MEDS: ENOXAPARIN 100 MG/1ML SYR SQ SCH ×2 (14:08→21:34)
--- NOTE | 2020-03-28 14:27 | Ultrasound Report ---
PARACENTESIS UNDER ULTRASOUND GUIDANCE CLINICAL HISTORY: ascites, hepatitis C, cirrhosis COMPARISON STUDY: No previous studies for comparison. FINDINGS: Due to a language barrier, the risks, benefits, and alternatives to the procedure were disc ussed with the patient's son. Verbal informed consent was obtained. Following real-time ultrasound lo calization, the skin was prepped and draped. Following local anesthesia with Xylocaine, the sheath pa racentesis needle was inserted and approximately 3.8 liters of straw-colored fluid was removed by vac uum suction. A left lower quadrant approach was utilized. The patient tolerated the procedure well and left the department in satisfactory condition. IMPRESSION: Successful ultrasound-guided paracentesis with removal of approximately 3.8 liters of asc itic fluid. ACT 112: Negative or not required by law. Electronically signed by: Epifanio Hope M.D. 03/28/2020 2:26 PM
--- NOTE | 2020-03-28 14:43 | Pharmacy Report ---
Pharmacy Glycemic Short Note 2 - Date of Service March 28, 2020 - Glycemic Short BSG Results (Last 24 hours): 03/27/20 03/28/20 23:56 14:10 Glucose 189 H POC Glucose 206 H OUTPATIENT ANTIDIABETIC REGIMEN: * N/A * A1c Pending ASSESSMENT: * DAVIN is admitted with liver cirrhosis/portal vein thrombosis, she is not currently on any medications for her type II diabetes, unknown A1c, pending for tomorrow. * Will initiate conservative lantus dose for now with scale up to weight based stress of 2 for this evening * Lunch BSG elevated patient has not yet received any insulin, will initiate insulin with weight based stress of 2 PLAN FOR INPATIENT GLYCEMIC CONTROL: * Hold outpatient oral diabetes medications * Basal insulin * Lantus 10 units now x 1 and then scale for PM up to 25 units * Bolus insulin * NovoLog per scale ACHS or Q6hrs while NPO * Goal Range: Low 110 mg/dL - High 140 mg/dL * Correction Factor: 20 mg/dL/unit * Nutritional / Prandial insulin per carb ratio of 1 unit per 7 grams CHO consumed
[2020-03-28] MEDS ORDERED: INSULIN GLARGINE SOLOSTAR 100 UNITS/ML 3 ML PEN SC ONE ×3 (14:45→21:00)
[2020-03-28] MEDS: INSULIN ASPART 100 UNITS/ML 3 ML PEN SC SCH ×3 (15:29→21:18)
[2020-03-28 17:44] LABS: Total Protein Peritoneal Fluid 2.1 g/dl
[2020-03-28 18:15] LABS: Appearance Peritoneal Fluid HAZY; Basophils, Fluid 0 %; Color Peritoneal Fluid AMBER; Eosinophils, Fluid 0 %; Lymphocytes, Fluid 24 %; Mono,Macrophage,Mesothelial 48 %; Neutrophils, Fluid 28 %; RBC Peritoneal Fluid (A) 11000 /uL; WBC Peritoneal Fluid (A) 445 /ul (0-300)
--- NOTE | 2020-03-28 20:14 | Billing Data ---
Date of Service March 28, 2020 Coding Level of Care Code 54776 Initial Inpt Care Lvl 3
[2020-03-28] MEDS: ONDANSETRON INJ 2 MG/ML 2 ML VIAL IV PRN (21:34)
[2020-03-29] MEDS: ONDANSETRON INJ 2 MG/ML 2 ML VIAL IV PRN ×3 (02:03→14:50)
[2020-03-29] MEDS: MoRPHine SULFATE 4 MG/ML 1 ML CARP\\VIAL IV PRN (02:03)
[2020-03-29 07:16] LABS: Hematocrit (blood only) 41.5 % (37-47); Hemoglobin 14.4 g/dL (12.0-16.0); Mean Corpuscular Hemoglobin 30.8 pg (25-34); Mean Corpuscular Hgb Conc 34.7 g/dL (32-36); Mean Corpuscular Volume 88.7 fL (80-100); RDW Coefficient of Variation 15.1 % (11.5-14.5); RDW Standard Deviation 48.5 fL (36.4-46.3); Red Blood Count 4.68 M/uL (4.2-5.4); White Blood Count 15.05 K/uL (4.8-10.8)
[2020-03-29 07:18] LABS: Mean Platelet Volume 11.8 fL (7.4-10.4); Platelet Count 86 K/uL (130-400)
[2020-03-29 07:27] LABS: INR 1.4 (0.9-1.1); Prothrombin Time 14.1 Seconds (9.0-12.0)
[2020-03-29] MEDS: MoRPHine SULFATE 2 MG/ML CARP IV PRN ×2 (07:37→14:50)
[2020-03-29 07:52] LABS: Basophils # (auto) 0.01 K/uL (0-0.2); Basophils % (auto) 0.1 %; Eosinophils # (auto) 0.11 K/uL (0-0.5); Eosinophils % (auto) 0.7 %; Immature Granulocytes # (auto) 0.06 K/uL (0.00-0.02); Immature Granulocytes % (auto) 0.4 %; Lymphocytes # (auto) 1.59 K/uL (1.2-3.4); Lymphocytes % (auto) 10.6 %; Monocytes # (auto) 1.37 K/uL (0.11-0.59); Monocytes % (auto) 9.1 %; Neutrophils # (auto) 11.91 K/uL (1.4-6.5); Neutrophils % (auto) 79.1 %
[2020-03-29 07:57] LABS: Estimated Average Glucose 163 mg/dl; Hemoglobin A1C 7.3 % (4.5-5.6)
[2020-03-29 08:03] LABS: Albumin Globulin Ratio 0.6 (0.9-2); Albumin Level 2.5 gm/dl (3.4-5.0); BUN Creatinine Ratio 30.4 (10-20); Bilirubin,Total 2.4 mg/dl (0.2-1); Calcium 7.8 mg/dl (8.5-10.1); Creatinine Clr Calc Pharmacy 126.6 ml/min; Est GFR (African American) 114.2; Est GFR (Non-African American) 98.5; Globulin 4.3 gm/dl (2.5-4.0); Potassium 4.6 mmol/L (3.5-5.1); Total Protein 6.8 gm/dl (6.4-8.2)
[2020-03-29] MEDS ORDERED: INSULIN GLARGINE SOLOSTAR 100 UNITS/ML 3 ML PEN SC SCH (09:00)
[2020-03-29] MEDS: SPIRONOLACTONE 25 MG TAB PO SCH (09:51)
[2020-03-29] MEDS: POLYETHYLENE (MIRALAX) 17 GM PACK PO SCH ×2 (09:52→20:51)
[2020-03-29] MEDS: ENOXAPARIN 100 MG/1ML SYR SQ SCH ×2 (09:52→21:48)
[2020-03-29] MEDS: INSULIN ASPART 100 UNITS/ML 3 ML PEN SC SCH ×4 (09:54→20:53)
--- NOTE | 2020-03-29 10:09 | Hospitalist Progress Note ---
Date of Service March 29, 2020 Assessment & Plan (1) Cirrhosis of liver: Inessa Toscano is a 59yo female with recently-diagnosed liver cirrhosis, hepatitis C, and DM2, with recent hospitalization in [place] for umbilical leaking of ascites, who presents with a 1-2 day history of RUQ pain progressing to diffuse abdominal pain, back pain, bloating, and nausea. Abdominal pain, back pain, bloating, portal vein thrombosis -pain, ascites likely due to portal vein thrombosis as seen on CT abdomen/pelvis -03/28/2020: paracentesis performed -peritoneal fluid color: hazy gilda -WBC: 455 -protein: 2.1 -LDH 89 -anticoagulating with lovenox 100mg sq qd -transitioning to PO anticoagulation with warfarin 5mg PO qd -PT/INR daily -monitor for development of bleeding -03/29/2020: changes made to pain med regimen to ultimately transition to PO: -tramadol 50mg PO q4h prn -morphine 2mg IV q4h prn for breakthrough pain -discontinued morphine 4mg IV q4h prn Cirrhosis, hepatitis C -recently diagnosed while hospitalized in [place] (02/2020) -cirrhotic liver morphology on CT -MELD score 14 -trending LFTs -03/28/2020: AST 27, ALT 24, AlkP 82, Tbili 2.3, INR 1.3 -03/29/2020: AST 21, ALT 19, AlkP 67, Tbili 2.4 -CMP qAM -patient has no outpatient remote sensing technician -will set up with GI outpatient DM2 -not on home meds -patient has no PCP -glycemic consult placed -A1c 7.3 -f/u outpatient Discharge planning -patient does not have insurance, PCP, or outpatient remote sensing technician -case management consult involved -03/29/2020: spoke to patient's son, he has not yet submitted MA paperwork, he is hoping for guidance from case management -would like to arrange for patient to see Dr. Amaro at the [facility] FENGI: low sodium, DM2 diet Code status: full code DVT ppx: on therapeutic lovenox Dispo: med/surg Admission and Anticipated Discharge Date Admission Date: March 28, 2020 Supervising Physician Co-Signing Physician Notes I personally examined the patient and verified all garcia points of history and exam, discussed case, and agree with decision making with Dr Amaro interviewed via system support administrator. abdominal pain - mostly L sided radiates to back - on and off - comes on slowly then she tries to ignore it because she harriet't really want to take pain meds, but then it gets to a 10 and she is dizzy and seeing stars from the pain. vitals noted nad heent nc at mmm breathing unlabored no accessory muscles. cirrhosis w portal hypertension and portal vein thrombosis -abdominal pain seems most c/w above as well as intestinal pain from venous congestion -cirrhosis related to hep C -dx / tx para done 03/28 (<250 neutrophils, doubt SBP) -continue supportive care -anticoagulation (start coumadin) -continue spironolactone, possibly lasix w caution -will need ongoing close outpt f/u w PCP and GI otherwise as above Subjective Patient was seen at bedside this morning. Spoke through the iPad Sammarinese boxer operator. Patient reports she feels much better today but endorses left-sided abdominal pain and mild nausea. Denies chest pain, shortness of breath, vomiting, headache, or other symptoms. No new complaints today. Spoke with patient's son (Mango) last night on the phone who was happy to hear patient was feeling better after paracentesis last night. He expressed gratitude for patient's care. Review of Systems Constitutional: no fever and no chills Respiratory: no cough and no dyspnea Cardiovascular: no chest pain, no palpitations and no lightheadedness Gastrointestinal: no constipation and no diarrhea/loose stools Genitourinary: no dysuria Physical Exam Constitutional: + language barrier and cooperative; no acute distress and + uncomfortable Respiratory: normal respiratory effort, lungs clear to auscultation Cardiovascular: RRR, no murmur, no edema Gastrointestinal (Abdomen): soft, mildly distended, mildly tender in RUQ and RLQ, moderately tender in LUQ and LLQ, normoactive bowel sounds x4 quadrants Psychiatric: Orientation: alert and oriented x 3 Affect: euthymic affect Results & Data Results & Data ([facility]) Vital Signs (Past 12 Hours) Vital Signs Temp Pulse Resp BP Pulse Ox 03/29/20 07:55 36.9 C 102 H 20 138/88 93 03/29/20 03:14 36.0 C L 104 H 17 117/64 95 03/28/20 23:15 37.2 C 99 H 17 135/80 95 Resident Activity Tracking Resident Involvement: Resident Care Provided Care Provided: Adult Hospital Medicine (1) Cirrhosis of liver Ascites presence: with ascites Hepatic cirrhosis type: unspecified hepatic cirrhosis Qualified Code(s): K74.60 - Unspecified cirrhosis of liver; R18.8 - Other ascites
--- NOTE | 2020-03-29 14:23 | Pharmacy Report ---
Pharmacy Glycemic Short Note 2 - Date of Service March 29, 2020 - Glycemic Short BSG Results (Last 24 hours): 03/28/20 03/28/20 03/29/20 16:56 20:23 06:55 Glucose 173 H POC Glucose 201 H 195 H 03/29/20 03/29/20 08:09 11:58 Glucose POC Glucose 170 H 203 H OUTPATIENT ANTIDIABETIC REGIMEN: * N/A * A1c Pending ASSESSMENT: 03/29 * Patient received total of 33 units of insulin yesterday, of which 20 were basal insulin * Fasting BSG 170 mg/dL - continue same basal insulin for now * Tighten CF PLAN FOR INPATIENT GLYCEMIC CONTROL: * Hold outpatient oral diabetes medications * Basal insulin * Lantus 10 units bid * Bolus insulin * NovoLog per scale ACHS or Q6hrs while NPO * Goal Range: Low 110 mg/dL - High 140 mg/dL * Correction Factor: 15 mg/dL/unit * Nutritional / Prandial insulin per carb ratio of 1 unit per 7 grams CHO consumed
[2020-03-29] MEDS: WARFARIN SOD 5 MG TAB PO SCH (16:44)
--- NOTE | 2020-03-29 17:50 | Billing Data ---
Date of Service March 29, 2020 Coding Level of Care Code 66016 Subseq Hosp Care Lvl 3
[2020-03-29] MEDS: traMADol HCL 50 MG TABLET PO PRN (20:51)
[2020-03-29] MEDS: INSULIN GLARGINE SOLOSTAR 100 UNITS/ML 3 ML PEN SC SCH (20:54)
[2020-03-30] MEDS: traMADol HCL 50 MG TABLET PO PRN ×3 (03:44→19:58)
[2020-03-30 06:30] LABS: Hematocrit (blood only) 35.8 % (37-47); Hemoglobin 12.7 g/dL (12.0-16.0); Mean Corpuscular Hemoglobin 31.3 pg (25-34); Mean Corpuscular Hgb Conc 35.5 g/dL (32-36); Mean Corpuscular Volume 88.2 fL (80-100); Mean Platelet Volume 12.8 fL (7.4-10.4); Platelet Count 74 K/uL (130-400); RDW Standard Deviation 47.8 fL (36.4-46.3); Red Blood Count 4.06 M/uL (4.2-5.4); White Blood Count 8.78 K/uL (4.8-10.8)
[2020-03-30 06:37] LABS: INR 1.2 (0.9-1.1)
[2020-03-30 06:55] LABS: Basophils # (auto) 0.02 K/uL (0-0.2); Basophils % (auto) 0.2 %; Eosinophils # (auto) 0.33 K/uL (0-0.5); Eosinophils % (auto) 3.8 %; Immature Granulocytes # (auto) 0.03 K/uL (0.00-0.02); Immature Granulocytes % (auto) 0.3 %; Lymphocytes # (auto) 1.25 K/uL (1.2-3.4); Lymphocytes % (auto) 14.2 %; Monocytes # (auto) 0.91 K/uL (0.11-0.59); Monocytes % (auto) 10.4 %; Neutrophils # (auto) 6.24 K/uL (1.4-6.5); Neutrophils % (auto) 71.1 %
[2020-03-30 06:58] LABS: Albumin Level 2.3 gm/dl (3.4-5.0); BUN Creatinine Ratio 28.5 (10-20); Calcium 7.7 mg/dl (8.5-10.1); Creatinine Clr Calc Pharmacy 143.1 ml/min; Est GFR (African American) 118.9; Est GFR (Non-African American) 102.6
[2020-03-30 07:00] LABS: Albumin Globulin Ratio 0.6 (0.9-2); Globulin 4.2 gm/dl (2.5-4.0); Total Protein 6.5 gm/dl (6.4-8.2)
[2020-03-30] MEDS: INSULIN ASPART 100 UNITS/ML 3 ML PEN SC SCH ×4 (09:45→20:06)
[2020-03-30] MEDS: SPIRONOLACTONE 25 MG TAB PO SCH (09:47)
[2020-03-30] MEDS: ENOXAPARIN 100 MG/1ML SYR SQ SCH ×2 (09:48→20:06)
[2020-03-30] MEDS: POLYETHYLENE (MIRALAX) 17 GM PACK PO SCH ×2 (09:48→20:10)
[2020-03-30] MEDS: INSULIN GLARGINE SOLOSTAR 100 UNITS/ML 3 ML PEN SC SCH ×2 (09:54→20:05)
--- NOTE | 2020-03-30 11:52 | Pharmacy Report ---
Pharmacy Glycemic Short Note 2 - Date of Service March 30, 2020 - Glycemic Short BSG Results (Last 24 hours): 03/29/20 03/29/20 03/29/20 11:58 17:07 20:40 Glucose POC Glucose 203 H 188 H 199 H 03/30/20 03/30/20 05:53 07:41 Glucose 167 H POC Glucose 165 H OUTPATIENT ANTIDIABETIC REGIMEN: * N/A * A1c Pending ASSESSMENT: 03/30 * Patient received total of 39 units of insulin yesterday, of which 20 were basal * Fasting BSG 167 mg/dL - continue same basal * Continue same CF/CR 03/29 * Patient received total of 33 units of insulin yesterday, of which 20 were basal insulin * Fasting BSG 170 mg/dL - continue same basal insulin for now * Tighten CF PLAN FOR INPATIENT GLYCEMIC CONTROL: * Hold outpatient oral diabetes medications * Basal insulin * Lantus 5-10 units bid based upon BSG value * Bolus insulin * NovoLog per scale ACHS or Q6hrs while NPO * Goal Range: Low 110 mg/dL - High 140 mg/dL * Correction Factor: 15 mg/dL/unit * Nutritional / Prandial insulin per carb ratio of 1 unit per 7 grams CHO consumed PLAN FOR DISCHARGE: * A1c of 7.3% on admission placing patient in diabetic A1c range. Per notes, patient does not have PCP. Not currently on medications at home for diabetes * Would recommend establishment with PCP outpatient for education related to DM including healthy lifestyle (diet, exercise) and disease self management (SMBG)
[2020-03-30 12:08] LABS: Appearance Urine Cloudy (Clear); Bilirubin Urine Negative (Negative); Blood Urine 3+ (Negative); Color Urine Orange; Epithelial Cell Urine Auto >30 /lpf (0-5); Glucose Urine UA Negative (Negative); Ketones Urine Negative (Negative); Leukocyte Esterase Urine 2+ (Negative); Nitrite Urine Positive (Negative); Protein Urine 1+ (Negative); Specific Gravity Urine 1.014 (1.000-1.030); Urobilinogen Urine Negative (Negative)
[2020-03-30 12:38] LABS: Bacteria Urine Automated 1+ (Negative)
[2020-03-30] MEDS ORDERED: traMADol HCL 50 MG TABLET PO STA (15:43)
[2020-03-30] MEDS: ONDANSETRON 4 MG OD TAB PO SCH ×3 (15:52→23:51)
[2020-03-30] MEDS: WARFARIN SOD 5 MG TAB PO SCH (15:53)
--- NOTE | 2020-03-30 16:15 | Hospitalist Progress Note ---
Date of Service March 30, 2020 Assessment & Plan (1) Cirrhosis of liver: Inessa Toscano is a 59yo female with recently-diagnosed liver cirrhosis, hepatitis C, and DM2, with recent hospitalization in [place] for umbilical leaking of ascites, who presents with a 1-2 day history of RUQ pain progressing to diffuse abdominal pain, back pain, bloating, and nausea. Abdominal pain, back pain, bloating, portal vein thrombosis -pain, ascites likely due to portal vein thrombosis as seen on CT abdomen/pelvis -03/28/2020: paracentesis performed -peritoneal fluid color: hazy gilda -WBC: 455 -protein: 2.1 -LDH 89 -anticoagulating with lovenox 100mg sq qd -transitioning to PO anticoagulation with warfarin 5mg PO qd -PT/INR daily -monitor for development of bleeding -03/29/2020: changes made to pain med regimen to ultimately transition to PO: -tramadol 50mg PO q4h prn -morphine 2mg IV q4h prn for breakthrough pain -discontinued morphine 4mg IV q4h prn Cirrhosis, hepatitis C -recently diagnosed while hospitalized in [place] (02/2020) -cirrhotic liver morphology on CT -MELD score 14 -trending LFTs -03/28/2020: AST 27, ALT 24, AlkP 82, Tbili 2.3, INR 1.3 -03/29/2020: AST 21, ALT 19, AlkP 67, Tbili 2.4 -CMP qAM -patient has no outpatient prison teacher -will set up with GI outpatient Hematuria -UA with 3+ blood, leuk esterase, WBC>30, awaiting culture -CT abdomen/pelvis with and without contrast (CT urography) -potential cystogram to follow -in the setting of new anticoagulation DM2 -not on home meds -patient has no PCP -glycemic consult placed -A1c 7.3 -f/u outpatient Discharge planning -patient does not have insurance, PCP, or outpatient prison teacher -case management involved -03/30/2020: per RACHEL POSEY paperwork has been submitted, and patient has been assigned an MA number which is active immediately -setting up Dr. Amaro as patient's PCP at the [facility] [place] Joanna JACOME: low sodium, DM2 diet Code status: full code DVT ppx: on therapeutic lovenox Dispo: med/surg Admission and Anticipated Discharge Date Admission Date: March 28, 2020 Supervising Physician Co-Signing Physician Notes I personally examined the patient and verified all garcia points of history and exam, discussed case, and agree with decision making with Dr Amaro interviewed via service dog trainer. abdominal pain still off and on - meds still help. had hematuria again but since has resolved. vitals noted nad heent nc at mmm breathing unlabored no accessory muscles. abd soft sl more distended fluid wave (+) no guarding/rebound/rigidity cirrhosis w portal hypertension and portal vein thrombosis -abdominal pain seems most c/w above as well as intestinal pain from venous congestion -cirrhosis related to hep C -dx / tx para done 03/28 (<250 neutrophils, doubt SBP) -continue supportive care -anticoagulation (now that coverage is possible - hoepfully can transition to DOAC) -continue spironolactone (increase), possibly lasix w caution -will need ongoing close outpt f/u w PCP and GI hematuria -CT urogram -outpt cysto endometrial thickening -outpt w/u questionable hematochezia -outpt colo otherwise as above Subjective Patient was seen at bedside this morning. Spoke through the iPad Swiss access lead. Patient continues to feel well this morning, complaining only of mild nausea. Denies chest pain, SOB, vomiting, headache, constipation or diarrhea. Patient does endorse red urine which she presumes to be blood in the urine. She believes this started yesterday or the day before. Reports it was alarming to her. Denies seeing any clots. Denies pain with urination, urinary frequency, hesitancy, sensation of incomplete voiding, or other urinary symptoms. Denies flank pain. Review of Systems Constitutional: + fatigue; no fever and no chills Respiratory: no cough and no dyspnea Cardiovascular: no chest pain and no palpitations Gastrointestinal: no vomiting, no constipation and no diarrhea/loose stools Genitourinary: + hematuria Physical Exam Constitutional: cooperative and comfortable; no acute distress Respiratory: normal respiratory effort, lungs clear to auscultation Cardiovascular: RRR, no murmur, no edema Gastrointestinal (Abdomen): soft, mildly tender in all quadrants, no rebound tenderness, nondistended, BS normoactive Psychiatric: A+Ox3, euthymic affect Results & Data Results & Data ([facility]) Vital Signs (Past 12 Hours) Vital Signs Temp Pulse Resp BP BP Pulse Ox 03/30/20 15:05 36.7 C 91 H 16 132/81 94 03/30/20 08:13 36.2 C L 66 20 121/68 94 Resident Activity Tracking Resident Involvement: Resident Care Provided Care Provided: Adult Hospital Medicine (1) Cirrhosis of liver Ascites presence: with ascites Hepatic cirrhosis type: unspecified hepatic cirrhosis Qualified Code(s): K74.60 - Unspecified cirrhosis of liver; R18.8 - Other ascites
[2020-03-30] MEDS ORDERED: IOVERSOL 100ml IV ONE (18:55)
--- NOTE | 2020-03-30 19:32 | CT Scan Report ---
CT UROGRAM CLINICAL HISTORY: Hematuria. COMPARISON STUDY: Abdominal CT dated 03/28/2020. TECHNIQUE: Before and following the IV administration of 92 cc of Optiray 320, CT scan of the abdomen and pelvis is performed from the lung bases to the proximal femora. Images are reviewed in the axial , sagittal, and coronal planes. IV contrast administered without complication. A dose lowering techni que was utilized adhering to the principles of ALARA. CT DOSE: 3217.42 mGy.cm FINDINGS: Lung bases: The heart is normal in size and without pericardial effusion. There is a small right pleu ral effusion with associated atelectasis. No airspace consolidation is seen typical for pneumonia. Th ere is a small hiatal hernia. Esophageal varices are noted. Liver: The contrast-enhanced liver is cirrhotic in morphology and heterogeneous in attenuation. There is hypertrophy of the left lobe and caudate as well as nodularity of the surface contour. There is n o intrahepatic biliary ductal dilatation. The hepatic veins are patent. There is nonocclusive thrombu s within the main portal vein seen on image #122. There is significant thrombus identified the portos plenic confluence, and nearly occlusive thrombus within the superior mesenteric vein seen on image #1 62. Trace thrombus is again seen in the distal splenic vein on image #145. There is recanalization of the periumbilical vein. Gallbladder: The gallbladder is distended but otherwise normal as imaged. Spleen: The spleen is markedly enlarged measuring 19.1 cm in length. There are perigastric and perisp lenic varices. Pancreas: Moderately atrophic and grossly unremarkable. Adrenal glands: Unremarkable. Kidneys and ureters: The contrast-enhanced kidneys demonstrate cortical atrophy and are without hydro nephrosis. No renal calculi are identified on the unenhanced series. The kidneys enhance and excrete symmetrically symmetrically. No enhancing cortical mass is identified. There is no evidence of urothe lial lesion in the renal pelvis bilaterally or along the course of the ureters. There is suboptimal c ontrast opacification of the mid ureters. Abdominal vasculature: The abdominal aorta is normal in course and caliber noting mild atheroscleroti c calcification. Bowel: The gastric mucosa appears thickened and hyperemic. There are thick walled and edematous loops of small bowel in the lower abdomen and pelvis. There is congestion of the mesenteric vasculature. N o pneumatosis intestinalis or portal venous gas is seen. No bowel obstruction is seen. Mild wall thic kening is also seen involving the right colon. There are scattered colonic diverticula without CT enmanuel dence of acute diverticulitis. The appendix is not clearly visualized. Peritoneum: There is a moderate volume of abdominopelvic ascites. No intraperitoneal free air is seen . Lymphadenopathy: Mildly enlarged lymph nodes in the breana hepatis and portacaval region are likely re lated to chronic liver disease. Pelvic viscera: Although decompressed, the bladder wall appears thickened. The endometrium appears th ickened and heterogeneous measuring up to 1.9 cm. No adnexal lesion is seen. Skeletal structures: The skeletal structures are osteopenic. There is mild to moderate lumbosacral sp ondylosis. No lytic or blastic lesions are seen. IMPRESSION: 1. Again seen is nonocclusive thrombus within the main portal vein, as well as nearly occlusive throm bus at the portosplenic confluence and in the superior mesenteric vein. This has not significantly ch anged from 03/28/2020. 2. Again seen are thick walled and edematous loops of small bowel in the lower abdomen and pelvis wit h associated mesenteric venous congestion. This likely represents venous insufficiency/ischemia secon prem to mesenteric venous thrombus. Correlate clinically for evidence of a superimposed infectious en teritis. 3. Trace nonocclusive thrombus is also seen within the splenic vein. 4. Cirrhotic liver morphology. 5. There is evidence of portal hypertension including a moderate volume of abdominopelvic ascites, ma rked splenomegaly, upper abdominal varices, esophageal varices, and recanalization of the periumbilic al vein. 6. The gastric mucosa appears thickened and hyperemic. Correlate clinically for evidence of gastritis . This could be further assessed with endoscopy if clinically warranted. 7. Mild wall thickening of the right colon likely represents portal colopathy. 8. Small right pleural effusion. 9. The endometrium appears heterogeneous and thickened for age measuring up to 1.9 cm. Follow-up with a nonemergent pelvic ultrasound and gynecology assessment is recommended. 10. Unremarkable CT urogram assessment of the kidneys and ureters. No renal calculi are identified. 11. The bladder is decompressed and appears thick walled. Correlation with urinalysis will be require d. 12. Additional findings as above. ACT 112: Negative or not required by law. Electronically signed by: Juma Daley M.D. 03/30/2020 7:31 PM
--- NOTE | 2020-03-30 20:21 | Billing Data ---
Date of Service March 30, 2020 Coding Level of Care Code 23188 Subseq Hosp Care Lvl 3
[2020-03-31] MEDS: ONDANSETRON 4 MG OD TAB PO SCH ×6 (04:53→22:02)
[2020-03-31 07:17] LABS: INR 1.3 (0.9-1.1)
[2020-03-31 07:38] LABS: Hematocrit (blood only) 35.2 % (37-47); Hemoglobin 12.7 g/dL (12.0-16.0); Mean Corpuscular Hemoglobin 31.8 pg (25-34); Mean Corpuscular Hgb Conc 36.1 g/dL (32-36); Mean Corpuscular Volume 88.2 fL (80-100); Mean Platelet Volume 12.5 fL (7.4-10.4); Platelet Count 74 K/uL (130-400); RDW Coefficient of Variation 15.2 % (11.5-14.5); RDW Standard Deviation 48.3 fL (36.4-46.3); Red Blood Count 3.99 M/uL (4.2-5.4); White Blood Count 5.51 K/uL (4.8-10.8)
[2020-03-31 07:39] LABS: Albumin Level 2.3 gm/dl (3.4-5.0); BUN Creatinine Ratio 35.2 (10-20); Basophils # (auto) 0.02 K/uL (0-0.2); Basophils % (auto) 0.4 %; Calcium 8.2 mg/dl (8.5-10.1); Creatinine Clr Calc Pharmacy 167.9 ml/min; Eosinophils # (auto) 0.31 K/uL (0-0.5); Eosinophils % (auto) 5.6 %; Est GFR (African American) 125.3; Est GFR (Non-African American) 108.1; Immature Granulocytes # (auto) 0.02 K/uL (0.00-0.02); Immature Granulocytes % (auto) 0.4 %; Lymphocytes # (auto) 1.23 K/uL (1.2-3.4); Lymphocytes % (auto) 22.3 %; Monocytes % (auto) 10.9 %; Neutrophils # (auto) 3.33 K/uL (1.4-6.5); Neutrophils % (auto) 60.4 %; Potassium 3.7 mmol/L (3.5-5.1)
[2020-03-31 07:53] LABS: Albumin Globulin Ratio 0.6 (0.9-2); Bilirubin,Total 1.5 mg/dl (0.2-1); Globulin 4.2 gm/dl (2.5-4.0); Total Protein 6.5 gm/dl (6.4-8.2)
[2020-03-31] MEDS: INSULIN ASPART 100 UNITS/ML 3 ML PEN SC SCH ×4 (08:56→21:12)
[2020-03-31] MEDS: INSULIN GLARGINE SOLOSTAR 100 UNITS/ML 3 ML PEN SC SCH ×2 (08:59→22:01)
[2020-03-31] MEDS: POLYETHYLENE (MIRALAX) 17 GM PACK PO SCH ×2 (08:59→22:01)
[2020-03-31] MEDS: ENOXAPARIN 100 MG/1ML SYR SQ SCH ×2 (09:00→22:00)
[2020-03-31] MEDS: SPIRONOLACTONE 25 MG TAB PO SCH (10:31)
[2020-03-31] MEDS: traMADol HCL 50 MG TABLET PO PRN ×2 (10:31→14:53)
[2020-03-31] MEDS: MoRPHine SULFATE 2 MG/ML CARP IV PRN (10:51)
[2020-03-31] MEDS ORDERED: WARFARIN SOD 7.5 MG TAB PO ONE (16:00)
--- NOTE | 2020-03-31 16:07 | Hospitalist Progress Note ---
Date of Service March 31, 2020 Assessment & Plan (1) Cirrhosis of liver: Inessa Toscano is a 59yo female with recently-diagnosed liver cirrhosis, hepatitis C, and DM2, with recent hospitalization in [place] for umbilical leaking of ascites, who presents with a 1-2 day history of RUQ pain progressing to diffuse abdominal pain, back pain, bloating, and nausea. Abdominal pain, back pain, bloating, portal vein thrombosis -pain, ascites likely due to portal vein thrombosis as seen on CT abdomen/pelvis -03/28/2020: paracentesis performed -peritoneal fluid color: hazy gilda -WBC: 455 -protein: 2.1 -LDH 89 -anticoagulating with lovenox 100mg sq qd -transitioning to PO anticoagulation with warfarin 5mg PO qd -INR 1.3, continue to acheive goal of 2-3 -monitor for development of bleeding -03/29/2020: changes made to pain med regimen to ultimately transition to PO: -tramadol 50mg PO q4h prn -morphine 2mg IV q4h prn for breakthrough pain -discontinued morphine 4mg IV q4h prn Cirrhosis, hepatitis C -recently diagnosed while hospitalized in [place] (02/2020) -cirrhotic liver morphology on CT -MELD score 14 -trending LFTs -03/28/2020: AST 27, ALT 24, AlkP 82, Tbili 2.3, INR 1.3 -03/29/2020: AST 21, ALT 19, AlkP 67, Tbili 2.4 -CMP qAM -patient has no outpatient marine service station attendant -will set up with GI outpatient Hematuria -UA with 3+ blood, leuk esterase, WBC>30, awaiting culture -CT abdomen/pelvis with and without contrast (CT urography) -potential cystogram to follow -in the setting of new anticoagulation -03/30/2020: patient reports hematuria has resolved DM2 -not on home meds -patient has no PCP -glycemic consult placed -A1c 7.3 -f/u outpatient Discharge planning -patient does not have insurance, PCP, or outpatient marine service station attendant -case management involved -03/30/2020: per CM, MA paperwork has been submitted, and patient has been assigned an MA number which is active immediately -setting up Dr. Bell as patient's PCP at the [facility] [place] Joanna JACOME: low sodium, DM2 diet Code status: full code DVT ppx: on therapeutic lovenox Dispo: med/surg Admission and Anticipated Discharge Date Admission Date: March 28, 2020 Supervising Physician Co-Signing Physician Notes I personally examined the patient and verified all garcia points of history and exam, discussed case, and agree with decision making with Dr Bell sleeping, no distress. allowed to rest. d/w dr bell vitals noted nad resting comfortably breathing unlabored no accessory muscles good effort skin no rashes no pallor or icterus cirrhosis w portal hypertension and portal vein thrombosis -abdominal pain seems most c/w above as well as intestinal pain from venous congestion -cirrhosis related to hep C -dx / tx para done 03/28 (<250 neutrophils, doubt SBP) -continue supportive care -anticoagulation (dr bell d/w case management - doac not covered - continue to titrate coumadin and follow INR) -continue spironolactone (increased 03/30), possibly lasix w caution -will need ongoing close outpt f/u w PCP and GI hematuria -CT urogram reassuring -outpt cysto -for now has resolved endometrial thickening -outpt w/u questionable hematochezia -outpt colo otherwise as above Subjective Patient seen at bedside this morning, conversed through iPad hydraulic plumber. Patient feels much better today, endorsing mild abdominal and back pain but no nausea. Denies vomiting, CP, SOB, dizziness, lightheadness, constipation, vomiting, hematuria, dysuria, or other symptoms. Eager to go home but understands we are waiting to achieve therapeutic INR. No other concerns today. Review of Systems Review of Systems: All systems reviewed & are unremarkable except as noted in HPI & below Physical Exam Constitutional: cooperative and comfortable; no acute distress Respiratory: normal respiratory effort, lungs clear to auscultation Cardiovascular: RRR, no murmur, no edema Gastrointestinal (Abdomen): soft, mildly tender, BS normoactive Results & Data Results & Data ([facility]) Vital Signs (Past 12 Hours) Vital Signs Temp Pulse Resp BP Pulse Ox 03/31/20 15:57 36.8 C 85 16 138/83 97 03/31/20 07:49 36.7 C 76 16 129/75 93 Resident Activity Tracking Resident Involvement: Resident Care Provided Care Provided: Adult Hospital Medicine (1) Cirrhosis of liver Ascites presence: with ascites Hepatic cirrhosis type: unspecified hepatic cirrhosis Qualified Code(s): K74.60 - Unspecified cirrhosis of liver; R18.8 - Other ascites
--- NOTE | 2020-03-31 19:01 | Billing Data ---
Date of Service March 31, 2020 Coding Level of Care Code 32847 Subseq Hosp Care Lvl 2
[2020-04-01] MEDS: ONDANSETRON 4 MG OD TAB PO SCH ×6 (03:47→21:52)
[2020-04-01 08:44] LABS: INR 2.3 (0.9-1.1); Prothrombin Time 23.2 Seconds (9.0-12.0)
[2020-04-01 09:05] LABS: Hematocrit (blood only) 36.7 % (37-47); Hemoglobin 12.8 g/dL (12.0-16.0); Mean Corpuscular Hemoglobin 30.9 pg (25-34); Mean Corpuscular Hgb Conc 34.9 g/dL (32-36); Mean Corpuscular Volume 88.6 fL (80-100); Mean Platelet Volume 12.3 fL (7.4-10.4); Platelet Count 81 K/uL (130-400); RDW Coefficient of Variation 15.2 % (11.5-14.5); RDW Standard Deviation 48.2 fL (36.4-46.3); Red Blood Count 4.14 M/uL (4.2-5.4); White Blood Count 4.85 K/uL (4.8-10.8)
[2020-04-01 09:06] LABS: Basophils # (auto) 0.02 K/uL (0-0.2); Basophils % (auto) 0.4 %; Eosinophils % (auto) 6.2 %; Immature Granulocytes # (auto) 0.03 K/uL (0.00-0.02); Immature Granulocytes % (auto) 0.6 %; Lymphocytes % (auto) 24.7 %; Monocytes # (auto) 0.57 K/uL (0.11-0.59); Monocytes % (auto) 11.8 %; Neutrophils # (auto) 2.73 K/uL (1.4-6.5); Neutrophils % (auto) 56.3 %; Platelet Estimate Decreased (Normal)
[2020-04-01 09:10] LABS: Albumin Level 2.3 gm/dl (3.4-5.0); BUN Creatinine Ratio 31.3 (10-20); Calcium 8.2 mg/dl (8.5-10.1); Creatinine Clr Calc Pharmacy 148.6 ml/min; Est GFR (African American) 120.4; Est GFR (Non-African American) 103.9; Potassium 3.7 mmol/L (3.5-5.1)
[2020-04-01] MEDS: INSULIN GLARGINE SOLOSTAR 100 UNITS/ML 3 ML PEN SC SCH ×2 (09:10→20:41)
[2020-04-01] MEDS: INSULIN ASPART 100 UNITS/ML 3 ML PEN SC SCH ×4 (09:11→20:42)
[2020-04-01] MEDS: SPIRONOLACTONE 25 MG TAB PO SCH (09:12)
[2020-04-01] MEDS: POLYETHYLENE (MIRALAX) 17 GM PACK PO SCH ×2 (09:12→20:48)
[2020-04-01] MEDS: ENOXAPARIN 100 MG/1ML SYR SQ SCH (09:12)
[2020-04-01 09:15] LABS: Albumin Globulin Ratio 0.5 (0.9-2); Bilirubin,Total 1.3 mg/dl (0.2-1); Globulin 4.6 gm/dl (2.5-4.0); Total Protein 6.9 gm/dl (6.4-8.2)
[2020-04-01] MEDS: traMADol HCL 50 MG TABLET PO PRN ×2 (11:03→20:40)
[2020-04-01] MEDS ORDERED: WARFARIN SOD 10 MG TAB PO SCH (16:00)
--- NOTE | 2020-04-01 17:41 | Hospitalist Progress Note ---
Date of Service April 01, 2020 Assessment & Plan (1) Cirrhosis of liver: Inessa Toscano is a 59yo female with recently-diagnosed liver cirrhosis, hepatitis C, and DM2, with recent hospitalization in [place] for umbilical leaking of ascites, who presents with a 1-2 day history of RUQ pain progressing to diffuse abdominal pain, back pain, bloating, and nausea. Abdominal pain, back pain, bloating, portal vein thrombosis -pain, ascites likely due to portal vein thrombosis as seen on CT abdomen/pelvis -03/28/2020: paracentesis performed -- peritoneal fluid color: hazy gilda, WBC: 455, protein: 2.1, LDH 89 -anticoagulating with lovenox 100mg sq qd -transitioning to PO anticoagulation with warfarin 5mg PO qd; doac not covered per CM so will continue to titrate coumadin and follow INR -03/31/20: INR 1.3, continue to achieve goal of 2-3 -monitor for development of bleeding -04/01/20: INR 2.3 -- INR goal achieved -- plan to d/c patient home on coumadin 2.5mg po daily; plan for close f/u in outpt setting and would recommend repeat INR on Friday04/03/20 -due to persistent abd pain and nausea, will change diet to full liquid diet and plan to advance slowly; discussed plan with patient who agrees with plan and requests d/c home tomorrow to ensure appropriate bowel movement and pain management overnight Cirrhosis, hepatitis C -recently diagnosed while hospitalized in [place] (02/2020) -cirrhotic liver morphology on CT; MELD score 14 -trending LFTs -03/28/2020: AST 27, ALT 24, AlkP 82, Tbili 2.3, INR 1.3 -03/29/2020: AST 21, ALT 19, AlkP 67, Tbili 2.4 -04/01/2020: AST 25, ALT 17, AlkP 68, Tbili 1.3, INR 2.3 -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 -will set up with GI outpatient Hematuria -UA with 3+ blood, leuk esterase, WBC>30, awaiting culture -CT abdomen/pelvis with and without contrast (CT urography) -potential cystogram to follow -in the setting of new anticoagulation -03/30/2020: patient reports hematuria has resolved DM2 -not on home meds -patient has no PCP -glycemic consult placed -A1c 7.3 -f/u outpatient Discharge planning -patient does not have insurance, PCP, or outpatient deer farm worker -case management involved -03/30/2020: per RACHEL POSEY paperwork has been submitted, and patient has been assigned an MA number which is active immediately -setting up Dr. Amaro as patient's PCP at the [facility] at [facility] Joanna NAA: low sodium, DM2 diet Code status: full code DVT ppx: on therapeutic lovenox Dispo: med/surg Admission and Anticipated Discharge Date Admission Date: March 28, 2020 Supervising Physician Co-Signing Physician Notes I personally examined the patient and verified all garcia points of history and exam, discussed case, and agree with decision making with Dr Stephen forrest pain doing better overall but still hasn't eaten much. also inadequate BM. otherwise feeling better vitals noted nad resting comfortably breathing unlabored no accessory muscles good effort skin no rashes no pallor or icterus cirrhosis w portal hypertension and portal vein thrombosis -abdominal pain seems most c/w above as well as intestinal pain from venous congestion and then today w constipation -----bowel regimen for constipation (miralax) -cirrhosis related to hep C -dx / tx para done 03/28 (<250 neutrophils, doubt SBP) -continue supportive care -anticoagulation (INR therapeutic, reduce coumadin dose and stop lovenox) -continue spironolactone (increased 03/30), possibly lasix w caution -will need ongoing close outpt f/u w PCP and GI hematuria -CT urogram reassuring -outpt cysto -for now has resolved endometrial thickening -outpt w/u questionable hematochezia -outpt colo otherwise as above, hopefully home tomorrow Subjective Patient seen and evaluated at bedside this morning, conversed through iPad geometrician with geometrician Oralia. Patient states that she is feeling much better today but notes that she did not eat dinner last night in attempt to hill off nausea, vomiting, and abdominal and in order to get a full night's sleep. She denies any nausea, vomiting, or abdominal pain and states that she slept well. She has eaten breakfast this morning and states that she remains asymptomatic. Patient with no other concerns at this time. Addendum: Patient re-evaluated this afternoon and conversed through iPad geometrician with geometrician Nirali. She report recurrent abdominal pain and nausea and states that she did not eat lunch today due to her symptoms. Patient is requesting to stay hospitalized overnight for symptomatic support but would like to be d/c home tomorrow. Review of Systems Constitutional: no fever, no chills and no fatigue Respiratory: no cough and no dyspnea Cardiovascular: no chest pain Gastrointestinal: no abdominal pain, no nausea and no vomiting Physical Exam Physical Exam: GENERAL: No acute distress. Well developed and well nourished. Vital signs reviewed. HENT: Moist mucous membranes. RESPIRATORY: Clear to auscultation bilaterally. No wheezing, rales, or rhonchi. CARDIOVASCULAR: Regular rate and rhythm. No murmurs. ABDOMEN: Soft, non-tender and non-distended. No palpable masses. Normal bowel sounds. EXTREMITIES: No edema. Chronic venous stasis changes noted to bilateral lower extremities. NEUROLOGIC: No focal neurological deficits. PSYCHIATRIC: Cooperative. Appropriate mood and affect. Results & Data Results & Data ([facility]) Vital Signs (Past 12 Hours) Vital Signs Temp Pulse Resp BP Pulse Ox 04/01/20 16:01 36.9 C 82 20 147/81 H 94 04/01/20 08:47 36.7 C 75 20 120/77 94 Resident Activity Tracking Resident Involvement: Resident Care Provided Care Provided: Adult Hospital Medicine (1) Cirrhosis of liver Ascites presence: with ascites Hepatic cirrhosis type: unspecified hepatic cirrhosis Qualified Code(s): K74.60 - Unspecified cirrhosis of liver; R18.8 - Other ascites
--- NOTE | 2020-04-01 18:18 | Billing Data ---
Date of Service April 01, 2020 Coding Level of Care Code 55642 Subseq Hosp Care Lvl 3
[2020-04-01] MEDS: MoRPHine SULFATE 2 MG/ML CARP IV PRN (19:38)
[2020-04-02] MEDS: ONDANSETRON 4 MG OD TAB PO SCH ×5 (04:08→17:36)
[2020-04-02 06:26] LABS: INR 4.3 (0.9-1.1); Prothrombin Time 41.6 Seconds (9.0-12.0)
[2020-04-02 06:43] LABS: BUN Creatinine Ratio 30.4 (10-20); Calcium 7.9 mg/dl (8.5-10.1); Creatinine Clr Calc Pharmacy 154.5 ml/min; Est GFR (African American) 121.9; Est GFR (Non-African American) 105.2; Potassium 3.7 mmol/L (3.5-5.1)
[2020-04-02] MEDS: SPIRONOLACTONE 25 MG TAB PO SCH (08:16)
[2020-04-02] MEDS: POLYETHYLENE (MIRALAX) 17 GM PACK PO SCH (08:17)
[2020-04-02] MEDS: INSULIN ASPART 100 UNITS/ML 3 ML PEN SC SCH ×3 (09:00→17:48)
[2020-04-02] MEDS: INSULIN GLARGINE SOLOSTAR 100 UNITS/ML 3 ML PEN SC SCH (09:01)
[2020-04-02] MEDS: traMADol HCL 50 MG TABLET PO PRN (13:02)
--- NOTE | 2020-04-02 15:44 | Pharmacy Report ---
Pharmacy Glycemic Sign Off Nt - Date of Service April 02, 2020 - Assessment & Plan ASSESSMENT: * Pharmacy was consulted by Dr Marquis Myrick on 03/28/20 for glycemic control and to write orders per [facility] inpatient glycemic control protocol. * Major changes made by pharmacy to antidiabetic regimen include: * Initiating SQ basal bolus insulin regimen * Patient has been receiving/requiring 21-28 units of insulin per day for adequate glycemic control * BSGs ranging 124-169 mg/dl * Regimen has only required minor adjustments over the past 48hrs to achieve this level of control * Do not anticipate further changes in patient status that would quickly deteriorate glycemic control (i.e. patient to be NPO for upcoming procedure, steroids tapering, starting tube feedings, etc). PLAN FOR INPATIENT GLYCEMIC CONTROL: No changes needed to current regimen. * Continue basal insulin with Lantus 5-10 units SQ BID {dose based on BSG} * Continue NovoLog per scale ACHS/Q6hrs while NPO * Goal range = 110 140 mg/dl * CF = 12 mg/dl/unit * CR = 1 unit for ever 7 g CHO consumed * Pharmacy is signing off of glycemic consult and will no longer be making adjustments to inpatient regimen. Please feel free to re-consult if needed. Thank you.
--- NOTE | 2020-04-02 19:18 | Discharge Summary ---
Date of Service April 02, 2020 Principal Diagnosis cirrhosis from hep C, portal vein thrombosis Discharge Exam gen aao pleasant nad heent nc at mmm breathing unlabored no accessory muscles Discharge Data Allergies Allergy/AdvReac Type Severity Reaction Status Date / Time No Known Allergies Allergy Unverified 03/28/20 01:49 Consultations 03/28/20 02:28 ED Decision to Admit Stat 03/28/20 05:08 Consult Case Management - Discharge Planning Routine Ordered Studies 03/28/20 00:42 CT abd pelvis IV con only Urgent 03/28/20 13:00 US paracentesis abd w/image Routine 03/30/20 15:35 CT abdomen pelvis wo/w con Stat Hospital Course (1) Cirrhosis of liver: (1) Cirrhosis of liver: Inessa Toscano is a 59yo female with recently-diagnosed liver cirrhosis, hepatitis C, and DM2, with recent hospitalization in [place] for umbilical leaking of ascites, who presents with a 1-2 day history of RUQ pain progressing to diffuse abdominal pain, back pain, bloating, and nausea. Abdominal pain, back pain, bloating, portal vein thrombosis -pain, ascites likely due to both cirrhosis and portal vein thrombosis as seen on CT abdomen/pelvis -03/28/2020: paracentesis performed -- peritoneal fluid color: hazy gilda, WBC: 455, protein: 2.1, LDH 89 -anticoagulated with lovenox 100mg sq qd --> transitioned to coumadin. -INR jumped to 4.3 --> home with coumadin on hold, anticipate probably a dose of about 2.5mg daily - next INR tomorrow or friday and ongoing titration Cirrhosis, hepatitis C, portal hypertension -recently diagnosed while hospitalized in [place] (02/2020) -cirrhotic liver morphology on CT; MELD score 14 -outpt PCP and GI coordination for treatment -close follow up, periodic para for symptoms if needed, spironolactone, follow BMP, consider lasix but hold off for now -no hepatotoxins Hematuria -CT reassuring, outpt cysto. if negative - ?related to endometrial thickening/vaginal bleeding endometrial thickening - US, probably EMB question of blood in stool -needs colo regardless given age -will be following w GI DM2 -A1c 7.3 -low carb diet to minimize additional fatty liver likely could be definitive treatment for her DM stable for home, close f/u Total Time Total Time Spent Total Time Spent (In Minutes): >30 Discharge Plan Discharge Items Patient Disposition: Home - Self-Care Reason For Visit: CIRRHOSIS AND ASCITES COMPLICATED BY HEPATITIS C Discharge Diagnosis: cirrhosis - see below Condition on Discharge: Fair Activity: Resume your previous activity Non-emergency contact: Primary Care Provider and Senior Receptionist Call non-emergency contact if: you have any medication questions, your symptoms worsen and your pain is not controlled Follow-up/Referrals: PCP,NO [Primary Care Provider] - Diet: Low Sodium (2gm) Addtl Attending Provider Instructions: -cirrhosis --cirrhosis means that your liver is not working well and very contracted down --it appears that the cirrhosis came about because of hepatitis C that you did not know about (unfortunately this is a pretty common thing) --the cirrhosis then is why your belly got so swollen, and why the clots formed --the main way we'll be trying to help with the cirrhosis to get the hepatitis C treated and then follow you closely. sometimes if the liver isn't "totally cirrhotic" it can slowly heal over time -- the situation is certainly more worrisome when the liver looks worse (as is the case with you) - but with time, sometimes livers can surprise us with how much they can heal --while treating the hepatitis C is obviously a huge part of taking care of your cirrhosis, it will also be important to not do anything that causes harm to the liver as well: strictly avoid all alcohol, and don't take any medication that contains tylenol (acetaminophen). in addition to that, be cautious with even using anti-inflammatories (like ibuprofen or naproxen) as they can also sometimes be hard on the liver (although not nearly as hard as alcohol or tylenol) --additionally, trying to move to a diet that is more fruits and vegetables, and less on simple carbs/starchy carbs/sugary foods can help reduce liver inflammation -hepatitis C -hepatitis C is a fairly common virus for people to chicken picker and not know. it is also unfortunately a fairly common cause for cirrhosis -the good news is that in the modern era, hepatitis C is usually very successfully treated - if you talk to other people who had hepatitis treated years ago, they would be talking about how hard treatment was to take, and that it might not even have been too successful; however, the treatments that have come out in the last ~5 years or so are really overall easy to tolerate and have a really high success rate -[facility] Medicine will be working together with the gastroenterology team to get the hepatitis C treated -ascites -ascites is the fluid that built up in your belly -ascites happens because the veins that drain blood from our intestines all drain back to the liver. veins run at a very low pressure of blood flow - - when the liver is contracted down it creates a "traffic jam" of blood flow in what is called the "portal circulation" (the blood that runs from intestines to liver) and so veins can easily get full/overflow. when this happens basically the serum (the liquid part of blood) seeps out from the blood vessels and fills the abdominal cavity -unfortunately because the main problem leading to the ascites (swelling) is that the liver is bad, it is a problem that can (and likely will) happen again and again over time (if it's not happening as often, that could be an early sign of the liver doing a little better). when it fills up to where it's uncomfortable, it can be drained by a needle just as they did at the beginning of this hospital admission. while that is an unfortunate truth, the good news is if you see things getting worse, now that we know what is going on and we are set up as your care team, they should be able to set up a drainage from the office with a day or two notice in order to get things arranged (usually they'll call radiology to schedule doing it by ultrasound) -we do have you on a water pill (spironolactone) to try to slow how quickly the fluid accumulates. because the main problem is the anatomy/contracture of the liver, the fluid pills don't always work great, but they can help some. we start with the spironolactone because it is safer (it doesn't really push fluid out of you as much as slow/reduce how much your kidneys retain fluid). it can sometimes cause your body to retain potassium so they will be checking labwork in the office from time to time. sometimes if the spironolactone is not helping as much we will try adding a water pill called furosemide (it looks like you were prescribed that before). we tend to only use that water pill (the furosemide) when we really need to because it does increase risk of causing serious dehydration (and sometimes without a lot of benefit at slowing the water retention/ascites) -you can also help slow fluid accumulation (ascites) by trying to really be strict on not eating a lot of sodium. when our kidneys see salt (sodium) they have to retain some water. when they see a lot of salt (sodium) they have to retain a lot of water -- in that respect, if you eat a lot of salt, you're way more likely to fill up with fluid faster, and if you avoid eating a lot of salt, you can slow down how much you accumulate fluid -portal vein thrombosis -as sometimes happens when someone has cirrhosis, the slower blood flow in your portal circulation (the blood that drains from intestines to liver) had clots form. this led to your intestines being a bit swollen, which seems to be why you had so much pain beyond even the pain from the swelling. -while these kinds of clots are not really risky to go to your lungs like other clots are, they can cause discomfort -because of this, we treat them with blood thinners (see below on "warfarin therapy") -over time, your body will shink the clots and move them to the side, so even if the clots never totally dissolve, the discomfort they are causing should get to be less and less over the coming days to weeks -warfarin therapy -we are treating the portal vein thrombosis (blood clots - as above) with a blood thinner called warfarin (coumadin, jantoven). this works to keep your blood somewhat thin so that the clots can shrink and get out of the way -part of how our blood clots is by proteins made in our liver, and warfarin works by blocking how your liver takes vitamin K and turns it into clotting proteins, reducing the production of a few of those proteins -because of this, warfarin needs to be monitored with frequent bloodwork (PT/INR) -- with the goal being to have an INR between about 2-3 (normal is about 0.9) -right now your blood is a little thin - your INR was 4.3 -- this is VERY common when we first start warfarin - sometimes people go a little high, but then we reduce the dose, things settle out, and then we get to a "steady state" -- when we first start someone on warfarin, usually they'll need labs 2-3 times the first week out of the hospital, and then ~2 or so times the second week, usually once again the third week, and by the fourth week we usually have things at more of a stable dose -for now, we'll have you not take any warfarin today since your labs showed your blood being a little on the thin side. they'll be following your levels in the office and guiding you as to when you start the warfarin again and what dose to take. based on what i'm seeing now, you'll likely end up somewhere around 2.5mg daily, and more than likely they'll have you resume taking the warfarin by midweek as they see your levels trend down -because warfarin blocks how your liver picks up vitamin K, it's important to try to be consistent with the vitamin K you eat in your diet. if you eat a lot of vitamin K one week, and then very little the next, then it can be really hard to regulate your levels. typically dark greens, leafy greens, and other deeply colored fruits and vegetables are the types of foods that have a lot fo vitamin K; it's also quite easy to simply do a google search of "vitamin K content in " and have a rough idea of what you're eating and how much vitamin K it contains -of course, when someone is on a blood thinner, there is an increased chance of bleeding. typically this is more minor stuff that stops on its own fairly quickly. if it does not, then we would want you to get checked out right away -also if you were to start to feel an unexplained fatigue, lightheadedness, or shortness of breath when you're doing things, it would also be a good time to get blood counts checked as those could be signs of having gradually become anemic (low blood counts) -it's a little tough to bankruptcy judge how long you'll need to be on the blood thinner at this time, since so much will depend on how you're doing with all of the other things above -type 2 diabetes -you do have very mild type 2 diabetes. for now the easiest way to manage it is actually the diet changes to help your liver. things are mild enough that if you avoid a lot of simple carbs/starchy carbs/sugars, you are likely to get it under perfect control or maybe even "cure" it -blood in urine -while of course blood thinners can increase bleeding, being on a blood thinner alone is not a reason that people bleed (ie the blood thinner itself does not cause bleeding, it just increases the amount of bleeding that was already occuring) -because of this, we suspect the blood in your urine was going on long before getting admitted, but you just never would have noticed until being on a blood thinner amplified things. -we did the CT scan specifically to look at your urinary tract - it did not show any kidney or large structure abnormalities that caused the bleeding -to complete the workup, we'll want to get you over to the urologists to do what is called a cystoscopy (a small scope with a camera to look around the bladder) - i've never had this done myself, but actually several years ago my had to have one - she described it as quite awkward, but not really painful, and it only took a few minutes -questionable blood in stool -similar to above, we'll need to get you set up for a colonoscopy in the near (but not immediate) future. the same director global looking after you for the cirrhosis and hepatitis C will be able to facilitate getting this done -endometrial thickening -as an incidental finding on your CT scan, your uterus looked like it was a little thick. this could possibly even be where you're seeing blood in the urine (sometimes vaginal bleeding can appear like it's urine bleeding) -the next step on this would be to get an ultrasound dedicated just to looking at this, since a CT scan is not always the best way to really look at the uterus this is all a lot to go over! [facility] (Dr Amaro, Stephen, etc) will help guide you through all this and work together with the gastroen terology team to make sure you're well taken care of TO DO (for the next few days): 1. take medicines as prescribed (spironolactone 25mg daily, warfarin - no dose for now but expect to start it at about 2.5mg daily by mid week) 2. avoid anything that can hurt your liver more (alcohol, tylenol, anti- inflammatories; try to avoid simple/starchy/sugary carbs in your diet) 3. follow up at [facility] ([address], [address], [place]) tomorrow at 9:[address] Clayton so we can get you established. their phone number is [phone] 4. lab work either tomorrow or Friday (PT/INR) to follow your warfarin and adjust the dose. expect to need labs checked again later in the week as well we prescribed your medications to the [facility] on [address] since it ap peared that your information is in the [facility] system and that is fairly near to where you live. just be sure to bring your MA number given to you by case management to the pharmacy (as well as to office visits) until you get your MA card so that you are able to get things covered by insurance Pending Studies at Discharge: No Stand-Alone Forms: My [facility] [employer], Smoking Cessation Medications and DC Order Prescriptions: New polyethylene glycol 3350 [Miralax] 17 gram Powder In Packet 17 g PO BID PRN (Reason: constipation) Qty: 60 RF: 0 tramadol 50 mg Tablet 50 mg PO Q6 PRN (Reason: pain) Qty: 15 RF: 0 Continued spironolactone 50 mg tablet 50 mg PO DAILY Qty: 30 RF: 0 Discontinued furosemide 40 mg tablet 40 mg PO DAILY RF: 0 Discharge Orders: Discharge Order (Routine); Ordered 04/02/20 Ordered By: Frank Hebert/Other Patient Handouts: High Blood Sugar (Hyperglycemia), Hypoglycemia (Low Blood Sugar), Managing Type 2 Diabetes, 5 Steps for Eating Healthier Admission Data Admit Date/Time: 03/28/20 03:53 Attending Provider: Frank Mazariegos Admit Provider: Rodo Myrick I. Primary Care Provider: PCP,NO Other Providers: Jai Reynoso Other Interventions: Discharge Summary Assessment (RN) Last Done: 04/02/20 17:51 Supervising Physician Co-Signing Physician Notes I personally examined the patient and verified all garcia points of history and exam, discussed case, and agree with decision making with Dr Stephen forrest pain doing better overall but still hasn't eaten much. also inadequate BM. otherwise feeling better vitals noted nad resting comfortably breathing unlabored no accessory muscles good effort skin no rashes no pallor or icterus cirrhosis w portal hypertension and portal vein thrombosis -abdominal pain seems most c/w above as well as intestinal pain from venous congestion and then today w constipation -----bowel regimen for constipation (miralax) -cirrhosis related to hep C -dx / tx para done 03/28 (<250 neutrophils, doubt SBP) -continue supportive care -anticoagulation (INR therapeutic, reduce coumadin dose and stop lovenox) -continue spironolactone (increased 03/30), possibly lasix w caution -will need ongoing close outpt f/u w PCP and GI hematuria -CT urogram reassuring -outpt cysto -for now has resolved endometrial thickening -outpt w/u questionable hematochezia -outpt colo otherwise as above, hopefully home tomorrow Coding Level of Care Code D/C Day Management >30 mins Diagnoses Cirrhosis of liver K74.60; R18.8 Ascites presence: with ascites Hepatic cirrhosis type: unspecified hepatic cirrhosis
== END 2020-04-02 18:43 | disposition home or self-care (01) | DRG 432 ==
LOC: ED 23:16 → SUATTDRO 03-28 03:53 → 3N 03-28 03:53

== ENCOUNTER 2020-09-09 12:15 | Observation (INO) ==
[2020-09-09 13:13] LABS: Alanine Aminotransferase 30 U/L (12-78); Albumin Level 2.5 gm/dl (3.4-5.0); Aspartate Aminotransferase 52 U/L (15-37); Blood Urea Nitrogen 10 mg/dl (7-18); Calcium 7.7 mg/dl (8.5-10.1); Carbon Dioxide 27 mmol/L (21-32); Chloride 99 mmol/L (98-107); Est GFR (African American) 111.8 ml/min; Est GFR (Non-African American) 96.5 ml/min; Glucose 139 mg/dl (70-99); Magnesium 2.2 mg/dl (1.8-2.4); Potassium 3.5 mmol/L (3.5-5.1); Sodium 132 mmol/L (136-145)
[2020-09-09 13:18] LABS: Albumin Globulin Ratio 0.5 (0.9-2); Alkaline Phosphatase 95 U/L (45-117); Bilirubin,Total 3.2 mg/dl (0.2-1); Globulin 5.1 gm/dl (2.5-4.0); Total Protein 7.6 gm/dl (6.4-8.2); Troponin I 0.022 ng/ml (0-0.045)
[2020-09-09 13:21] LABS: Appearance Urine Clear (Clear); Bacteria Urine Automated Negative (Negative); Blood Urine Trace (Negative); Color Urine Orange; Epithelial Cell Urine Auto >30 /lpf (0-5); Glucose Urine UA Negative (Negative); Ketones Urine 1+ (Negative); Leukocyte Esterase Urine Trace (Negative); Nitrite Urine Positive (Negative); Protein Urine Trace (Negative); RBC Urine Automated 0-4 /hpf (0-4); Specific Gravity Urine 1.016 (1.000-1.030); Urobilinogen Urine Positive (Negative); pH Urine 6.5 (4.5-7.5)
[2020-09-09 13:22] LABS: Bilirubin Urine 1+ (Negative); INR 1.6 (0.9-1.1)
[2020-09-09] MEDS ORDERED: cefTRIAXone SODIUM 2,000 MG/70 ML BAG IV STA (13:24)
[2020-09-09 13:32] LABS: Basophils # (auto) 0.03 K/uL (0-0.2); Basophils % (auto) 0.4 %; Eosinophils # (auto) 0.01 K/uL (0-0.5); Eosinophils % (auto) 0.1 %; Hemoglobin 12.6 g/dL (12.0-16.0); Immature Granulocytes # (auto) 0.03 K/uL (0.00-0.02); Immature Granulocytes % (auto) 0.4 %; Lymphocytes # (auto) 0.81 K/uL (1.2-3.4); Lymphocytes % (auto) 10.2 %; Mean Corpuscular Volume 88.5 fL (80-100); Mean Platelet Volume 13.8 fL (7.4-10.4); Monocytes # (auto) 0.28 K/uL (0.11-0.59); Monocytes % (auto) 3.5 %; Neutrophils # (auto) 6.79 K/uL (1.4-6.5); Neutrophils % (auto) 85.4 %; Platelet Count 93 K/uL (130-400); Platelet Estimate Decreased (Normal); RDW Coefficient of Variation 14.1 % (11.5-14.5); RDW Standard Deviation 46.2 fL (36.4-46.3); Red Blood Count 4.07 M/uL (4.2-5.4); White Blood Count 7.95 K/uL (4.8-10.8)
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
[2020-09-09] MEDS ORDERED: DICLOFENAC SOD 1% GEL 100 GM TUBE EXT STA (14:08)
[2020-09-09] MEDS ORDERED: SODIUM CHLORIDE 0.9% 500 ML IV ONE (14:08)
--- NOTE | 2020-09-09 14:37 | XRay Report ---
XR chest 1V portable CLINICAL HISTORY: SEPSIS COMPARISON STUDY: April 03, 2020 FINDINGS: No definite pneumothorax seen however evaluation of lung apices is limited due to overlying patient's chin.. No pleural effusion. No large infiltrates or consolidative lesions are seen. Interval diffuse accentuation of pulmonary pa renchyma is seen. Mild peribronchial cuffing are demonstrated. Cardiomediastinal silhouette is within normal limits in size. No significant pulmonary vascular congestion.. Osseous structures: unremarkable IMPRESSION: 1. No large infiltrates or consolidative lesions. Interval diffuse accentuation of pulmonary parench yma which might represent pulmonary edema or bronchitis. ACT 112: Negative or not required by law. The above report was generated using voice recognition software. It may contain grammatical, syntax o r spelling errors. Electronically signed by: Lisa Heredia DO 09/09/2020 2:36 PM
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
[2020-09-09 17:13] LABS: Lyme Ab IgG w/WB Rflx Negative (Negative)
[2020-09-09 17:28] LABS: Lyme Ab IgM w/WB Rflx Positive (Negative)
--- NOTE | 2020-09-09 18:34 | XRay Report ---
XR hips ASUNCION 1v w pelvis CLINICAL HISTORY: b/l hip pain COMPARISON: September 06, 2014 DISCUSSION: No definite acute fracture or dislocation seen. Evaluation is limited due to mild osteopenia and fany ent body habitus. No blastic or lytic lesions are seen. IMPRESSION: No definite acute fracture or dislocation. Limited exam due to patient's body habitus. ACT 112: Negative or not required by law. The above report was generated using voice recognition software. It may contain grammatical, syntax o r spelling errors. Electronically signed by: Lisa Heredia DO 09/09/2020 6:32 PM
--- NOTE | 2020-09-09 18:35 | XRay Report ---
XR knee LT 1 or 2V routine CLINICAL HISTORY: knee effusion, pain COMPARISON: None. DISCUSSION: No acute fracture or dislocation seen. There is narrowing of the medial compartment of the left knee and osteophytes at the right and left femoral condyle likely representing degenerative process. Also osteophytes at superior and inferior aspect of patella are seen. Diffuse soft tissue edema is seen. IMPRESSION: No acute fracture dislocation. Degenerative changes as detailed above. ACT 112: Negative or not required by law. The above report was generated using voice recognition software. It may contain grammatical, syntax o r spelling errors. Electronically signed by: Lisa Heredia DO 09/09/2020 6:34 PM
--- NOTE | 2020-09-09 18:44 | XRay Report ---
XR knee RT 1 or 2V routine CLINICAL HISTORY: knee effusion, pain COMPARISON: None. DISCUSSION: No acute fracture or dislocation seen. Degenerative changes with knee joint space narrowing and osteophytes are seen. Mild soft tissue edema is demonstrated. IMPRESSION: No acute fracture dislocation. ACT 112: Negative or not required by law. The above report was generated using voice recognition software. It may contain grammatical, syntax o r spelling errors. Electronically signed by: Lisa Heredia DO 09/09/2020 6:43 PM
[2020-09-09] MEDS ORDERED: ONDANSETRON INJ 2 MG/ML 2 ML VIAL IV PRN (19:01)
[2020-09-09] MEDS ORDERED: oxyCODONE HCL IR 5 MG TAB (IMMEDIATE RELEASE) PO PRN (19:01)
[2020-09-09] MEDS: ACETAMINOPHEN 500 MG TAB PO PRN ×2 (19:44→23:58)
[2020-09-09] MEDS ORDERED: WARFARIN SOD 7.5 MG TAB PO SCH (20:00)
[2020-09-09] MEDS ORDERED: IBUPROFEN 200 MG TAB PO PRN (21:05)
[2020-09-09] MEDS: INSULIN ASPART 100 UNITS/ML 3 ML PEN SC SCH (21:15)
[2020-09-10 07:49] LABS: INR 2.1 (0.9-1.1); Prothrombin Time 20.1 Seconds (9.0-12.0)
[2020-09-10 07:58] LABS: Hematocrit (blood only) 32.8 % (37-47); Hemoglobin 11.2 g/dL (12.0-16.0); Mean Corpuscular Hemoglobin 30.7 pg (25-34); Mean Corpuscular Hgb Conc 34.1 g/dL (32-36); Mean Corpuscular Volume 89.9 fL (80-100); Mean Platelet Volume 13.1 fL (7.4-10.4); Platelet Count 74 K/uL (130-400); RDW Coefficient of Variation 14.4 % (11.5-14.5); RDW Standard Deviation 47.9 fL (36.4-46.3); Red Blood Count 3.65 M/uL (4.2-5.4); White Blood Count 4.16 K/uL (4.8-10.8)
[2020-09-10 07:59] LABS: Basophils # (auto) 0.03 K/uL (0-0.2); Basophils % (auto) 0.7 %; Eosinophils # (auto) 0.02 K/uL (0-0.5); Eosinophils % (auto) 0.5 %; Immature Granulocytes # (auto) 0.01 K/uL (0.00-0.02); Immature Granulocytes % (auto) 0.2 %; Lymphocytes % (auto) 14.4 %; Monocytes # (auto) 0.28 K/uL (0.11-0.59); Monocytes % (auto) 6.7 %; Neutrophils # (auto) 3.22 K/uL (1.4-6.5); Neutrophils % (auto) 77.5 %; Platelet Estimate Decreased (Normal)
[2020-09-10 08:03] LABS: Albumin Level 2.1 gm/dl (3.4-5.0); BUN Creatinine Ratio 29.1 (10-20); C Reactive Protein 17.9 mg/dl (0-0.29); Calcium 7.8 mg/dl (8.5-10.1); Creatinine Clr Calc Pharmacy 126.5 ml/min; Est GFR (African American) 115.5 ml/min; Est GFR (Non-African American) 99.6 ml/min
[2020-09-10 08:07] LABS: Albumin Globulin Ratio 0.5 (0.9-2); Bilirubin,Total 2.2 mg/dl (0.2-1); Globulin 4.7 gm/dl (2.5-4.0); Total Protein 6.8 gm/dl (6.4-8.2)
--- NOTE | 2020-09-10 08:17 | Hospitalist Progress Note ---
Date of Service September 10, 2020 Assessment & Plan Admission and Anticipated Discharge Date Admission Date: September 09, 2020 Results & Data Results & Data ([facility]) Vital Signs (Past 12 Hours) Vital Signs Temp Pulse Pulse Resp BP Pulse Ox 09/10/20 07:40 36.7 C 64 20 99/65 L 96 09/10/20 07:01 70 09/10/20 02:50 36.6 C 77 18 108/67 96 09/09/20 23:55 37.8 C H 09/09/20 23:12 38.1 C H 112 H 17 112/66 92 09/09/20 22:55 38.7 C H 09/09/20 22:28 120 H 09/09/20 22:05 39.2 C H 120 H 18 118/66 92 09/09/20 20:53 39.5 C H
[2020-09-10] MEDS: INSULIN ASPART 100 UNITS/ML 3 ML PEN SC SCH (08:58)
[2020-09-10] MEDS ORDERED: SPIRONOLACTONE 25 MG TAB PO SCH (09:00)
[2020-09-10] MEDS ORDERED: FUROSEMIDE 40 MG TAB PO SCH (09:00)
--- NOTE | 2020-09-10 13:03 | Electrocardiogram Report ---
Test Reason : Blood Pressure : / mmHG Vent. Rate : 099 BPM Atrial Rate : 099 BPM P-R Int : 154 ms QRS Dur : 082 ms QT Int : 384 ms P-R-T Axes : 027 004 013 degrees QTc Int : 492 ms Normal sinus rhythm Cannot rule out Anterior infarct (cited on or before 09-SEP-2020) Nonspecific ST abnormality Abnormal ECG When compared with ECG of 28-MAR-2020 04:11, No significant change was found Confirmed by Fam Da Silva ([id number]) on 09/10/2020 1:03:13 PM Referred By: REFERRED SELF Confirmed By:Madhu Da Silva
[2020-09-10] MEDS ORDERED: cefTRIAXone SODIUM 2,000 MG in DEXTROSE 5% 50 ML IV SCH (14:00)
--- NOTE | 2020-09-10 18:51 | Discharge Summary ---
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 No sick contacts. No recent travel. Has NOT had COVID vaccine. Son lives with her and he, too, is unvaccinated against COVID. Rash started on hands & arms, then spread to torso, back, and legs. Face largely spared but she did have one lesion near the mouth. Denies sore throat, nasal congestion, dysuria, loss of taste or smell, nausea, emesis, abdominal pain. When asked about the above, she states that the HIP PAIN b/l is the worst pain. Hurts to weight-bear and move. Just feels very achy. Son mentions that the family went to [facility] last Friday. She apparently took a nap on a blanket laid out on the grass during their picnic. Of note - patient has limited Taj[place] and thus her son provided interpretation of her [place] tongue, [place]. Admission Exam Per Admitting Provider Constitutional: + acute distress (when she walks she looks uncomfortable), + ill appearing and + frail appearing; no altered mental status Eyes: PERRL ENMT: external ear and nose normal, oropharynx normal no oral lesions or ulcerations Neck: trachea midline, no thyromegaly Respiratory: no respiratory distress Auscultation: + diminished lung sounds (bases); no crackles and no wheezes Cardiovascular: regular rhythm and + tachycardic Heart Sounds: normal S1, normal S2 and + murmur (1/6 FAROOQ LSB) Vessels: + JVD, posterior tibial pulses present and dorsalis pedis pulses present Extremities: + edema (2+ b/l - feet to thighs) Gastrointestinal: Inspection/Auscultation: + abdomen distended (severe - 2nd ascites ) and normal bowel sounds Percussion/Palpation: abdomen nontender, no guarding and no hepatosplenomegaly Neurologic: deep tendon reflexes 2+ bilaterally and moves all extremities; no focal motor deficits Psychiatric: Orientation: alert and oriented x 3 Lymphatic: no cervical lymphadenopathy Musculoskeletal: 1. b/l hips - passive ROM causes discomfort over the proximal- mid thighs b/l. 2. b/l knees - marked edema/swelling periarticular - uncertain if due to LE edema from cirrhosis vs knee effusions. Nontender however with passive ROM. Skin: Copious numbers of flat, macular patches present on the back, chest, torso/abdominal wall, legs, and arms; oral cavity, face, neck, palms, and soles are spared. Several of the lesions have faint central clearing with a more intense erythema at the border/periphery. Most lesions are circular or ovoid in shape. Some are elliptical in shape (thighs, back). Some lesions have a bluish/light purple hue to them. NO WHEEL/FLARE PATTERN. No vesicles. No papules. Nontender to palpation. No scale. These lesions do jeff temporarily with pressure. BL shins: baseline venous stasis changes with severe hyperpigmentation extending from the feet up to just below the knees. Mainly near the tibial plateau of left calle there are several petechial lesions present that do not jeff. Principal Diagnosis Disseminated lyme disease Discharge Exam Constitutional well developed Eyes PERRL, conjunctivae normal, anicteric sclerae ENMT external ear and nose normal, oropharynx normal Respiratory normal respiratory effort, lungs clear to auscultation Cardiovascular Rate/Rhythm: regular rate and regular rhythm Gastrointestinal (Abdomen) Inspection/Auscultation: + abdomen distended, normal bowel sounds and + abdominal edema Percussion/Palpation: + ascites and + fluid wave; abdomen not rigid Skin Multiple flat, macular patches present on the back, chest, torso/abdominal wall, legs, and arms; oral cavity, face, neck, palms, and soles are spared. Several of the lesions have faint central clearing with a more intense erythema at the border/periphery. Most lesions are circular or ovoid in shape. Some are elliptical in shape (thighs, back). No vesicles. No papules. Nontender to palpation. No scale. BL shins: baseline venous stasis changes with severe hyperpigmentation extending from the feet up to just below the knees. Neurologic awake Motor/Sensory: no tremor and no asterixis Psychiatric A+Ox3, euthymic affect Discharge Data Allergies Allergy/AdvReac Type Severity Reaction Status Date / Time menthol Allergy Anaphylaxis Unverified 09/09/20 15:26 mint Allergy Anaphylaxis Unverified 09/09/20 15:24 Consultations 09/09/20 15:01 ED Decision to Admit Stat Hospital Course (1) Disseminated Lyme disease: Disseminated lyme Patient was started on IV doxycycline on admission, which resulted in a dramatic improvement in symptoms as well as rash appearance. While patient had noted likely tick exposure one week prior to admission, she also noted other potential tick exposures in the preceding weeks and months. Lyme IgM returned positive, and patient's symptoms were felt to be due to disseminated lyme. Patient was discharged on hospital day two with a total 21-day course of doxycycline, with arrangements made for PCP follow-up two days after discharge. Cirrhosis secondary to hepatitis C Patient's history of cirrhosis and resultant peritoneal fluid accumulation requiring regular paracentesis was noted on admission. Patient was noted to have abdominal distention on admission, but in the absence of abdominal pain, abdominal tenderness, or nausea, paracentesis was not indicated. Patient was discharged as above with close PCP follow-up. Patient's home regimen was continued during this hospitalization. Portal vein thrombosis Patient's home warfarin was continued during this hospitalization. Total Time Total Time Spent Total Time Spent (In Minutes): see attending documentation Discharge Plan Discharge Items Patient Disposition: Home - Self-Care Reason For Visit: SUSPECTED LYME DISEASE Discharge Diagnosis: Disseminated lyme disease Activity: Resume your previous activity Non-emergency contact: Primary Care Provider Call non-emergency contact if: your symptoms worsen, your pain is worsening and you have a fever Follow-up/Referrals: Dennis Amaro MD [Primary Care Provider] - Diet: Carb Consistent or DM2 Addtl Attending Provider Instructions: You were admitted to the hospital for lyme disease. You were treated with IV antibiotics. We feel it is safe for you to continue your treatment from home with oral antibiotics. Details are below. A discharge summary will be sent to your primary care physician to ensure continuity of care. Please bring this discharge summary with you to your next office appointment so that your provider can review it at that time. Follow-up appointments: We have scheduled a follow-up appointment with Dr. Dennis Amaro at the [facility] on Friday (09/12) at 9:00am. If you have any questions, please call his office at [phone]. Keep all your follow-up appointments as already scheduled. If you cannot make an appointment, notify your provider. Medications: Your medication list has been reviewed and reconciled upon discharge to ensure accuracy and continuity of care. An updated list of all your medications is included with your hospital discharge paperwork. Please review this list closely, and make note of any changes. * We sent a new medication called doxycyline to your pharmacy ([facility]). Take doxycycline (100mg) one tablet twice daily for 20 days. Take your medications as instructed; do not skip a dose of your medicines. Make sure all of your doctors know every medicine you are taking (including palf-kha-vomdgps medicines, vitamins, and supplements). Call your primary care provider before taking any new medicines (including uooq-ayh-jyelugk medicines, vitamins, and supplements), because some of these may interact with your current medications, or may make your symptoms worse. Tell your primary care provider if you cannot afford your medications. CONTACT YOUR PRIMARY CARE PROVIDER if you experience any of the following: Worsening fever, chills Rash that is spreading Difficulty eating, drinking, or using the toilet Worsening abdominal pain Difficulty following your treatment plan, or difficulty taking medications CALL 911 OR GO TO THE EMERGENCY DEPARTMENT if you experience any of the following: Sudden, severe abdominal pain or nausea/vomiting Severe chest pain, or chest pain that radiates (moves) to your jaw or arm Sudden, severe shortness of breath or difficulty breathing Thank you for allowing us to participate in your care. Pending Studies at Discharge: No Stand-Alone Forms: My [facility] Medications and DC Order Prescriptions: New doxycycline hyclate 100 mg capsule 100 mg PO BID 20 Days Qty: 40 RF: 0 Continued warfarin 5 mg tablet 5 mg PO 2XWK RF: 0 furosemide 40 mg tablet 40 mg PO DAILY RF: 0 polyethylene glycol 3350 [Miralax] 17 gram Powder In Packet 17 g PO BID PRN (Reason: constipation) Qty: 60 RF: 0 tramadol 50 mg Tablet 50 mg PO Q6 PRN (Reason: pain) Qty: 15 RF: 0 spironolactone 50 mg tablet 50 mg PO DAILY Qty: 30 RF: 0 warfarin 5 mg tablet 7.5 mg PO 5XWK RF: 0 Discharge Orders: Discharge Order (Routine); Ordered 09/10/20 Ordered By: Dennis Hebert/Other Patient Handouts: Tick Bites, ED Lyme Disease Admission Data Admit Date/Time: 09/09/20 17:16 Attending Provider: Vida Rodriguez Admit Provider: Farrukh Hernandez Primary Care Provider: Dennis Amaro Other Providers: Farrukh Hernandez Other Interventions: Discharge Summary Assessment (RN) Last Done: 09/10/20 11:37 Supervising Physician Co-Signing Physician Notes Patient seen and examined with PGY 1 Dr. Amaro. Agree with history, exam findings, assessment and plan of care as outlined. The video book or script editor service was used. In brief, Mrs. Bajwa is a 59-year-old female with history of cirrhosis secondary to hepatitis C, prior portal vein thrombosis and type 2 diabetes admitted with 48 hours of fever, arthralgias, fatigue, diffuse erythematous rash consistent with early disseminated Lyme. She was started on ceftriaxone for early disseminated Lyme and sepsis. Lyme screen is positive for IgM. Western blot is pending at the time of discharge. Pro-Ion is positive. CRP is elevated. Urine and blood cultures urinalysis is not suggestive of infection. Blood cultures without growth at 24 hours. On the day of discharge, the erythematous rash is improving. There are areas of central clearing in the areas of splotchy erythema. Discharge home with 21 days of doxycycline. She has chronic abdominal ascites. There are no signs or symptoms of SBP. We continued her home diuretic regimen. Her abdomen is not taut or painful. There is no indication for inpatient therapeutic paracentesis at this time. She is chronically anticoagulated with Coumadin for a prior portal vein thrombosis secondary to cirrhosis and hepatitis C. On admission her INR is 1.6. Given that she will be sent home on doxycycline, will need to monitor her INR and adjust as needed for potential interaction with the doxycycline. Disposition: Discharge home today. The resident physician spoke with the patient's sons to discuss the plan. She will follow-up this week at the [facility] office. I personally spent 35 minutes discharge planning for this patient. Resident Activity Tracking Resident Involvement: Resident Care Provided Care Provided: Adult [facility]
[2020-09-11 06:41] LABS: Estimated Average Glucose 120 mg/dl; Hemoglobin A1C 5.8 % (4.5-5.6)
--- NOTE | 2020-09-11 08:13 | Coding Query ---
SEPSIS To promote full compliance with coding requirements relating to patient care, physician participation is requested in all cases of medical record coder uncertainty. Please assist us with the question(s) below: In responding to this query, please exercise your independent professional judgement. The fact that a question is asked does not imply that any particular answer is desired or expected. We appreciate your clarification on this issue. Throughout the medical record, you have clearly documented a localized infection and your patient has clinical evidence of a generalized sepsis or severe sepsis. The term urosepsis is a nonspecific entity and is coded as an UTI. If the patient has sepsis, severe sepsis, from an urinary source or some other source, please clarify in your response below. The medical record reflects the following clinical findings: Patient admitted with disseminated Lyme disease. H/P- documents Sepsis. Please check below te the appropriate phrase pertaining to the absence or presence of sepsis. Thank you . [facility] ____ ( )Bacteremia (Nonspecific laboratory finding of bacteria in the blood) Specify Organism ( ) Present on Admission ( ) Not present on admission ( ) Unable to clinically determine ( ) Septicemia (Systemic disease associated with the presence of pathogenic microorganisms in the blood): Specify Organism ( ) Present on Admission ( ) Not present on admission ( ) Unable to clinically determine ( x ) Sepsis Specify Organism: Borrelia Burgdorferi Specify Associated Condition/Diagnosis ( x ) Present on Admission ( ) Not present on admission ( ) Unable to clinically determine ( ) Severe Sepsis (Sepsis associated with acute organ dysfunction) Specify Organism Specify Associated Condition/Diagnosis ( ) Present on Admission ( ) Not present on admission () Unable to clinically determine ( ) Septic Shock (Severe sepsis with acute circulatory failure, unexplained by other causes) ( ) Present on Admission ( ) Not present on admission ( ) Unable to clinically determine ( ) Other, patient has: MTDD
[2020-09-11] MEDS ORDERED: WARFARIN SOD 5 MG TAB PO SCH (16:00)
[2020-09-14 03:56] LABS: 18KDIGG Band NON-REACTIVE; 23KDIGG Band NON-REACTIVE; 23KDIGM Band REACTIVE; 28KDIGG Band NON-REACTIVE; 30KDIGG Band NON-REACTIVE; 39KDIGG Band NON-REACTIVE; 39KDIGM Band NON-REACTIVE; 41KDIGG Band REACTIVE; 41KDIGM Band REACTIVE; 45KDIGG Band NON-REACTIVE; 58KDIGG Band NON-REACTIVE; 66KDIGG Band NON-REACTIVE; 93KDIGG Band NON-REACTIVE; Lyme Antibodies, WB IgG NEGATIVE (NEGATIVE); Lyme Antibodies, WB IgM POSITIVE (NEGATIVE)
== END 2020-09-10 12:56 | disposition home or self-care (01) | DRG 871 ==
LOC: ED 12:15 → 2N 17:16 → SUATTDRO 17:16 → INTOOBSV 17:16 → 2N 17:52

== ENCOUNTER 2022-08-03 15:51 | Inpatient (IN) ==
[2022-08-03] MEDS ORDERED: cefTRIAXone SODIUM 2,000 MG/70 ML BAG IV STA (16:38)
[2022-08-03] MEDS ORDERED: fentaNYL citrate PF 100 MCG/2 ML VIAL IV STA (16:38)
[2022-08-03] MEDS ORDERED: ACETAMINOPHEN 325 MG TAB PO STA (16:38)
[2022-08-03] MEDS ORDERED: SODIUM CHLORIDE 0.9% 1000ML 500 ML IV ONE (16:39)
--- NOTE | 2022-08-03 16:41 | Emergency Department Note ---
Impression & Plan Cellulitis of left lower extremity without foot, Thrombocytopenia, Diabetes, Left leg pain ED Provider Note Provider: Maxi Fitzpatrick MD DATE OF SERVICE: 08/03/2022 CHIEF COMPLAINT: HISTORY OF PRESENT ILLNESS: Patient is a 61-year-old female history of diabetes, hepatitis C status posttreatment, cirrhosis, Lyme disease, portal vein thrombus on warfarin presenting here today with her son. Primarily speaks Swazi but wishes for her son to serve as weekend anchor. Did offer formal translation services which she declined. Patient evidently was okay yesterday and went to the grocery store. Overnight and this morning had worsening pain of her left calf region. States she has had some low-grade fevers at 99 Fahrenheit having some mild headache. Denies any trauma. Pain and swelling of the left lower leg to the left ankle. States sometime ago she had some swelling to her right lower leg but this improved and she did not seek treatment as she did not have insurance. Denies any abdominal pain or nausea or vomiting. No cough or cold or shortness of breath symptoms reported. PAST MEDICAL HISTORY: As noted above MEDICATIONS: Reviewed home medication list SOCIAL HISTORY: Non-smoker, primarily speaks Swazi but son is present who she wishes to use for translation to Tajik PHYSICAL EXAM: GENERAL: alert and oriented in no acute distress on stretcher Head: normocephalic and atraumatic EYES: No injection, discharge or icterus. NECK: Trachea midline. ENT: Mucous membranes pink and moist. LUNGS: Airway patent. No retractions or tachypnea HEART: Regular rate and rhythm. No chest wall tenderness ABDOMEN: Soft and non-tender, without guarding or rebound. SKIN: Acyanotic, warm, dry EXTREMITIES: Without swelling, tenderness or deformity except for erythema from the left mid calf distally to just above the ankle. No crepitus but some diffuse tenderness here with soft compartments of the left lower leg. No significant left knee joint line tenderness. No crepitus or significant swelling of the left foot noted. No pain of left thigh or significant swelling or tenderness of the right lower extremity. 2+ left DP pulse appreciated. NEUROLOGICAL: No focal deficits although limited range of motion of the left lower leg and ankle due to pain. Gross sensation intact in all 4 extremities. Patient's laboratory studies and imaging reviewed. Differential includes Cellulitis, abscess, MRSA infection, DVT, necrotizing fasciitis, dermatitis, drug eruption, allergic reaction, as well as other pathologies. IMPRESSION/MEDICAL DECISION MAKING: Patient diabetic with elevated blood sugars on warfarin now with increased welling and pain of the left lower extremity. Seems likely infectious with some diffuse erythema. Not horribly swollen. Will order DVT study to exclude this but is on warfarin. Blood work checked. Given some IV fluid gently as well as broad-spectrum ceftriaxone initially. Blood cultures obtained. With her diabetes and the significant pain she is experiencing due to some concerns about her ability to manage this as an outpatient. Do not see clear evidence of necrotizing fasciitis and does not seem localized to her joint and doubt joint space infection at this point. Do not clinically see evidence of compartment syndrome. Blood work here without significant hyperglycemia. No significant cytosis or anemia with chronic stable thrombocytopenia. Lactate not elevated. Not tachycardic or hypotensive here. Doubt sepsis. Slight hyponatremia and hypokalemia. X-ray per review and radiology with some soft tissue swelling but no evidence of free air or bony abnormality. INR is therapeutic at 2.2. show evidence of an elevated procalcitonin 1.4. Ultrasound per radiology report without findings concerning for DVT. Several comorbidities and added vancomycin for MRSA coverage. Discussed with the patient via her son the options at this time. Obviously at some risk given her age and comorbidities including diabetes but no reported history of resistant infection and does not appear septic. In shared decision- making now with the use of solar energy consultant and designer as son is left, her pain is improving with the fentanyl but with the infection, DM, and progression since yesterday with a elevated procal will obs. DIAGNOSIS: Left leg pain, leg cellulitis DISPOSITION: Hospitalist will evaluate Patient was agreeable with this plan. Past Med/Surg History Medical History Ascites Cirrhosis of liver Diabetes NIDDM Edema bilateral legs, comes and goes. Hepatitis C dx in [place] in 2019 during a vacation - son states patient did have treatment in the past unsure if it was October 2020 or October 2021. History of abdominal paracentesis Hypothyroidism hx of taking levothyroxine in November 2021 -- no longer takes. Lyme disease August 2020 - treated no current issues Partial small bowel obstruction son unaware of details Portal vein thrombosis (dx in 2020) currently on warfarin. Sepsis hx in 2021. Thrombocytopenia UTI (urinary tract infection) hx Venous stasis dermatitis of both lower extremities Surgical History H/O umbilical hernia repair 01/2020 in [place] Family History Mother Gastric cancer Father Stroke Social History Smoking Status: Never smoker Second Hand Exposure: No; Do You Dip or Chew Tobacco: No; Hx Alcohol Use: No Hx Substance Use: No Preferred Language: Swazi Communication Ability: Impaired Communication Ability Comment: solar energy consultant and designer Communication Tools: IPad, Writing Tablet, Physical Gestures and Other Cafeteria Monitor Required: Yes, Video and Voice Beliefs That Will Affect Care: None marital status: Single marital status details: from ; he lives in [facility]; he has HepC Current Living Situation: Family Current Living Situation Comment: lives with sonWu current occupational status: retired How many Children do You have: 2 other: 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; 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 Feels Safe at Home: Yes Assistive Devices: Glasses Allergies Allergies Allergy/AdvReac Type Severity Reaction Status Date / Time menthol Allergy Severe Anaphylaxis Verified 08/03/22 18:49 mint Allergy Severe Anaphylaxis Verified 08/03/22 18:49 Home Meds Home Medications Medication Instructions Recorded Confirmed furosemide 40 mg tablet 40 mg PO DAILY 10/03/20 08/03/22 empagliflozin 10 mg tablet 10 mg PO DIRECTED PRN IF BSG 05/27/22 08/03/22 (Jardiance) >200 spironolactone 100 mg tablet 100 mg PO QAM 05/27/22 08/03/22 Previous Rx's Medication Instructions Recorded polyethylene glycol 3350 17 gram 17 g PO BID PRN constipation #60 ea 04/02/20 oral powder packet (Miralax) warfarin 5 mg tablet See Rx Instructions PO UD #140 tabs 07/08/22 Results & Data (ED) Vital Signs Vital Signs - 24 hr 08/03/22 16:05 08/03/22 16:26 08/03/22 16:29 Temperature 36.8 C Temperature Source Temporal Artery Scan Pulse Rate 92 H 88 Pulse Rate [Right Apical] 89 Pulse Rate from SpO2 Sensor Respiratory Rate 18 18 Respiratory Effort / Characteristics Non-Labored Spontaneous Respiratory Depth Normal Respiratory Pattern Regular Blood Pressure 109/65 Blood Pressure [Right Arm] 128/62 Blood Pressure Mean 79 Blood Pressure Mean [Right Arm] 84 Pulse Oximetry 95 96 Oxygen Delivery Method Room Air Room Air Sepsis Recent Fever Within 48 Hours No Sepsis New/Unexplained Change in Mental Status No Sepsis Action Taken by Nursing No Action Required 08/03/22 16:30 08/03/22 17:30 08/03/22 18:00 Temperature Temperature Source Pulse Rate 89 85 80 Pulse Rate [Right Apical] Pulse Rate from SpO2 Sensor 89 85 79 Respiratory Rate 18 12 16 Respiratory Effort / Characteristics Respiratory Depth Respiratory Pattern Blood Pressure 113/58 L 102/56 L 117/61 Blood Pressure [Right Arm] Blood Pressure Mean 76 71 79 Blood Pressure Mean [Right Arm] Pulse Oximetry 95 98 96 Oxygen Delivery Method Room Air Room Air Room Air Sepsis Recent Fever Within 48 Hours Sepsis New/Unexplained Change in Mental Status Sepsis Action Taken by Nursing 08/03/22 18:45 08/03/22 18:45 08/03/22 19:00 Temperature 37.0 C Temperature Source Oral Pulse Rate 77 76 Pulse Rate [Right Apical] Pulse Rate from SpO2 Sensor 78 76 Respiratory Rate 17 14 Respiratory Effort / Characteristics Respiratory Depth Respiratory Pattern Blood Pressure 110/62 117/64 Blood Pressure [Right Arm] Blood Pressure Mean 78 81 Blood Pressure Mean [Right Arm] Pulse Oximetry 97 97 Oxygen Delivery Method Room Air Room Air Sepsis Recent Fever Within 48 Hours Sepsis New/Unexplained Change in Mental Status Sepsis Action Taken by Nursing 08/03/22 19:30 Temperature Temperature Source Pulse Rate 77 Pulse Rate [Right Apical] Pulse Rate from SpO2 Sensor 78 Respiratory Rate 20 Respiratory Effort / Characteristics Respiratory Depth Respiratory Pattern Blood Pressure 107/57 L Blood Pressure [Right Arm] Blood Pressure Mean 73 Blood Pressure Mean [Right Arm] Pulse Oximetry 95 Oxygen Delivery Method Room Air Sepsis Recent Fever Within 48 Hours Sepsis New/Unexplained Change in Mental Status Sepsis Action Taken by Nursing Laboratory Data 08/03/22 17:08 08/03/22 17:08 Lab Results 08/03/22 08/03/22 08/03/22 Range/Units 16:46 16:52 17:08 WBC 5.76 (4.8-10.8) K/ul RBC 4.41 (4.20-5.40) M/uL Hgb 12.8 (12.0-16.0) g/dl Hct 38.1 (37.0-47.0) % MCV 86.4 (80.0-100.0) fL MCH 29.0 (25.0-34.0) pg MCHC 33.6 (32.0-36.0) g/dL RDW Std Deviation 49.4 H (36.4-46.3) fL RDW Coeff of Meg 15.9 H (11.5-14.5) % Plt Count 40 L (130-400) K/uL Immature Gran % (Auto) 0.3 % Neut % (Auto) 80.3 % Lymph % (Auto) 11.1 % Harnett % (Auto) 7.8 % Eos % (Auto) 0.3 % Baso % (Auto) 0.2 % Neut # (Auto) 4.62 (1.40-6.50) K/uL Lymph # (Auto) 0.64 L (1.2-3.4) K/uL Harnett # (Auto) 0.45 (0.11-0.59) K/uL Eos # (Auto) 0.02 (0-0.50) K/uL Baso # (Auto) 0.01 (0-0.2) K/uL Immature Gran # (Auto) 0.02 (0.01-0.20) K/uL Platelet Estimate Decreased L (Normal) PT (9.0-12.0) Seconds INR (0.9-1.1) APTT (21.0-31.0) Seconds PTT Ratio Sodium (136-145) mmol/L Potassium (3.5-5.1) mmol/L Chloride (98-107) mmol/L Carbon Dioxide (21-32) mmol/L Anion Gap (3-11) BUN (6-23) mg/dl Creatinine (0.6-1.2) mg/dl Est Cr Clr Drug Dosing ml/min Est GFR ( Amer) ml/min Est GFR (Non-Af Amer) ml/min BUN/Creatinine Ratio (10-20) Glucose (70-99(Fasting)) mg/dl POC Glucose 160 H (70-99) mg/dl Lactate (0.4-2.0) mmol/L Calcium (8.6-10.3) mg/dl Total Bilirubin (0.2-1.0) mg/dl AST (13-39) U/L ALT (7-52) U/L Alkaline Phosphatase (34-104) U/L Total Protein (6.0-8.3) gm/dl Albumin (3.4-5.0) gm/dl Globulin (2.5-4.0) gm/dl Albumin/Globulin Ratio (0.9-2) Procalcitonin (0-0.5) ng/ml SARS-CoV-2, RNA, NAAT NEGATIVE (NEGATIVE) 08/03/22 08/03/22 08/03/22 Range/Units 17:08 17:08 17:08 WBC (4.8-10.8) K/ul RBC (4.20-5.40) M/uL Hgb (12.0-16.0) g/dl Hct (37.0-47.0) % MCV (80.0-100.0) fL MCH (25.0-34.0) pg MCHC (32.0-36.0) g/dL RDW Std Deviation (36.4-46.3) fL RDW Coeff of Meg (11.5-14.5) % Plt Count (130-400) K/uL Immature Gran % (Auto) % Neut % (Auto) % Lymph % (Auto) % Harnett % (Auto) % Eos % (Auto) % Baso % (Auto) % Neut # (Auto) (1.40-6.50) K/uL Lymph # (Auto) (1.2-3.4) K/uL Harnett # (Auto) (0.11-0.59) K/uL Eos # (Auto) (0-0.50) K/uL Baso # (Auto) (0-0.2) K/uL Immature Gran # (Auto) (0.01-0.20) K/uL Platelet Estimate (Normal) PT 22.9 H (9.0-12.0) Seconds INR 2.2 H (0.9-1.1) APTT 37.9 H (21.0-31.0) Seconds PTT Ratio 1.3 Sodium 134 L (136-145) mmol/L Potassium 3.3 L (3.5-5.1) mmol/L Chloride 102 (98-107) mmol/L Carbon Dioxide 22 (21-32) mmol/L Anion Gap 10 (3-11) BUN 13 (6-23) mg/dl Creatinine 0.50 L (0.6-1.2) mg/dl Est Cr Clr Drug Dosing 154.5 ml/min Est GFR ( Amer) 120.2 ml/min Est GFR (Non-Af Amer) 103.7 ml/min BUN/Creatinine Ratio 26.0 H (10-20) Glucose 172 H (70-99(Fasting)) mg/dl POC Glucose (70-99) mg/dl Lactate (0.4-2.0) mmol/L Calcium 8.0 L (8.6-10.3) mg/dl Total Bilirubin 1.9 H (0.2-1.0) mg/dl AST 27 (13-39) U/L ALT 22 (7-52) U/L Alkaline Phosphatase 85 (34-104) U/L Total Protein 7.0 (6.0-8.3) gm/dl Albumin 3.2 L (3.4-5.0) gm/dl Globulin 3.8 (2.5-4.0) gm/dl Albumin/Globulin Ratio 0.8 L (0.9-2) Procalcitonin 1.44 H (0-0.5) ng/ml SARS-CoV-2, RNA, NAAT (NEGATIVE) 08/03/22 Range/Units 17:37 WBC (4.8-10.8) K/ul RBC (4.20-5.40) M/uL Hgb (12.0-16.0) g/dl Hct (37.0-47.0) % MCV (80.0-100.0) fL MCH (25.0-34.0) pg MCHC (32.0-36.0) g/dL RDW Std Deviation (36.4-46.3) fL RDW Coeff of Meg (11.5-14.5) % Plt Count (130-400) K/uL Immature Gran % (Auto) % Neut % (Auto) % Lymph % (Auto) % Harnett % (Auto) % Eos % (Auto) % Baso % (Auto) % Neut # (Auto) (1.40-6.50) K/uL Lymph # (Auto) (1.2-3.4) K/uL Harnett # (Auto) (0.11-0.59) K/uL Eos # (Auto) (0-0.50) K/uL Baso # (Auto) (0-0.2) K/uL Immature Gran # (Auto) (0.01-0.20) K/uL Platelet Estimate (Normal) PT (9.0-12.0) Seconds INR (0.9-1.1) APTT (21.0-31.0) Seconds PTT Ratio Sodium (136-145) mmol/L Potassium (3.5-5.1) mmol/L Chloride (98-107) mmol/L Carbon Dioxide (21-32) mmol/L Anion Gap (3-11) BUN (6-23) mg/dl Creatinine (0.6-1.2) mg/dl Est Cr Clr Drug Dosing ml/min Est GFR ( Amer) ml/min Est GFR (Non-Af Amer) ml/min BUN/Creatinine Ratio (10-20) Glucose (70-99(Fasting)) mg/dl POC Glucose (70-99) mg/dl Lactate 1.7 (0.4-2.0) mmol/L Calcium (8.6-10.3) mg/dl Total Bilirubin (0.2-1.0) mg/dl AST (13-39) U/L ALT (7-52) U/L Alkaline Phosphatase (34-104) U/L Total Protein (6.0-8.3) gm/dl Albumin (3.4-5.0) gm/dl Globulin (2.5-4.0) gm/dl Albumin/Globulin Ratio (0.9-2) Procalcitonin (0-0.5) ng/ml SARS-CoV-2, RNA, NAAT (NEGATIVE) Administered Medications Vancomycin HCl 2,250 mg/ (Sodium Chloride) 545 mls @ 200 mls/hr IV NOW ONE Stop: 08/03/22 21:16 Last Admin: 08/03/22 19:00 Dose: 200 mls/hr Documented By: LAKSHMI Discontinued Medications Acetaminophen (Acetaminophen 325 Mg Tab) 650 mg PO NOW STA Stop: 08/03/22 16:39 Last Admin: 08/03/22 17:12 Dose: 650 mg Documented By: LAKSHMI Fentanyl Citrate (Fentanyl Citrate Pf 100 Mcg/2 Ml Vial) 75 mcg IV NOW STA Stop: 08/03/22 16:39 Last Admin: 08/03/22 17:11 Dose: 75 mcg Documented By: LAKSHMI Ceftriaxone Sodium (Rocephin) 2,000 mg in 70 mls @ 140 mls/hr IV NOW STA Stop: 08/03/22 17:07 Last Infusion: 08/03/22 18:24 Dose: 0 mls/hr Documented By: Admin: 08/03/22 17:53 Dose: 140 mls/hr Documented By: LAKSHMI Sodium Chloride (Nss 1000ml) 500 mls @ 999 mls/hr IV .Q31M ONE Stop: 08/03/22 17:09 Last Infusion: 08/03/22 17:46 Dose: 0 mls/hr Documented By: Admin: 08/03/22 17:12 Dose: 999 mls/hr Documented By: LAKSHMI Imaging Data Radiologist's Impression: Tibia/Fibula X-Ray 08/03/22 16:38 XR tibia fibula LT 2V CLINICAL HISTORY: pain, reddness TECHNIQUE: 2 radiographic views of the left leg were obtained. Comparison: None available at the time of this dictation. FINDINGS: There is no evidence of an acute fracture. Joint spaces are well-preserved. Soft tissue swelling is seen. IMPRESSION: Diffuse soft tissue swelling without underlying bony abnormality. ACT 112: Negative or not required by law. Electronically signed by: Satya Kearney M.D. 08/03/2022 5:51 PM Venous Doppler Study 08/03/22 16:38 US venous doppler LE LT CLINICAL HISTORY: swelling, pain TECHNIQUE: Left lower extremity real-time compression venous ultrasound with Color Doppler imaging. Utilizing real-time ultrasonic imaging multiple real time high-resolution ultrasonic images with compression and noncompression maneuvers of the deep venous system in addition to color doppler imaging were performed from the common femoral vein through the proximal calf veins. COMPARISON: None available at the time of this dictation. FINDINGS/IMPRESSION: Currently there is normal compressibility of the deep venous system from the common femoral vein through the proximal calf veins. No superficial venous thrombosis is identified. ACT 112: Negative or not required by law. Electronically signed by: Satya Kearney M.D. 08/03/2022 6:28 PM Discharge Plan Visit Data Chief Complaint: Fever Stated Complaint: FEVER, HYPERGLYCEMIA, SWELLING LEFT LEG ED Provider: Maxi Fitzpatrick Discharge Problem: Cellulitis of left lower extremity without foot, Thrombocytopenia, Diabetes, Left leg pain Forms Stand Alone Forms: My [facility] [employer] Prescriptions Prescriptions: No Action warfarin 5 mg tablet See Rx Instructions PO UD Qty: 140 1RF Rx Instructions: 7.5 mg q evening per [facility] orally use as directed polyethylene glycol 3350 [Miralax] 17 gram Powder In Packet 17 g PO BID PRN (Reason: constipation) Qty: 60 0RF furosemide 40 mg tablet 40 mg PO DAILY spironolactone 100 mg Tablet 100 mg PO QAM Jardiance 10 mg Tablet 10 mg PO DIRECTED PRN (Reason: IF BSG >200) Referrals Referrals: Dennis Amaro MD [Primary Care Provider] -
[2022-08-03 17:50] LABS: Albumin Globulin Ratio 0.8 (0.9-2); Albumin Level 3.2 gm/dl (3.4-5.0); Basophils # (auto) 0.01 K/uL (0-0.2); Basophils % (auto) 0.2 %; Bilirubin,Total 1.9 mg/dl (0.2-1.0); Creatinine Clr Calc Pharmacy 154.5 ml/min; Eosinophils # (auto) 0.02 K/uL (0-0.50); Eosinophils % (auto) 0.3 %; Est GFR (African American) 120.2 ml/min; Est GFR (Non-African American) 103.7 ml/min; Globulin 3.8 gm/dl (2.5-4.0); Hematocrit (blood only) 38.1 % (37.0-47.0); Hemoglobin 12.8 g/dl (12.0-16.0); Immature Granulocytes # (auto) 0.02 K/uL (0.01-0.20); Immature Granulocytes % (auto) 0.3 %; Lymphocytes # (auto) 0.64 K/uL (1.2-3.4); Lymphocytes % (auto) 11.1 %; Mean Corpuscular Hgb Conc 33.6 g/dL (32.0-36.0); Mean Corpuscular Volume 86.4 fL (80.0-100.0); Monocytes # (auto) 0.45 K/uL (0.11-0.59); Monocytes % (auto) 7.8 %; Neutrophils # (auto) 4.62 K/uL (1.40-6.50); Neutrophils % (auto) 80.3 %; Platelet Count 40 K/uL (130-400); Platelet Estimate Decreased (Normal); Potassium 3.3 mmol/L (3.5-5.1); RDW Coefficient of Variation 15.9 % (11.5-14.5); RDW Standard Deviation 49.4 fL (36.4-46.3); Red Blood Count 4.41 M/uL (4.20-5.40); White Blood Count 5.76 K/ul (4.8-10.8)
--- NOTE | 2022-08-03 17:53 | XRay Report ---
XR tibia fibula LT 2V CLINICAL HISTORY: pain, reddness TECHNIQUE: 2 radiographic views of the left leg were obtained. Comparison: None available at the time of this dictation. FINDINGS: There is no evidence of an acute fracture. Joint spaces are well-preserved. Soft tissue swelling is s een. IMPRESSION: Diffuse soft tissue swelling without underlying bony abnormality. ACT 112: Negative or not required by law. Electronically signed by: Satya Kearney M.D. 08/03/2022 5:51 PM
[2022-08-03 18:00] LABS: INR 2.2 (0.9-1.1); Partial Thromboplastin Ratio 1.3; Partial Thromboplastin Time 37.9 Seconds (21.0-31.0); Prothrombin Time 22.9 Seconds (9.0-12.0)
--- NOTE | 2022-08-03 18:29 | Ultrasound Report ---
US venous doppler LE LT CLINICAL HISTORY: swelling, pain TECHNIQUE: Left lower extremity real-time compression venous ultrasound with Color Doppler imaging. U tilizing real-time ultrasonic imaging multiple real time high-resolution ultrasonic images with compr ession and noncompression maneuvers of the deep venous system in addition to color doppler imaging we re performed from the common femoral vein through the proximal calf veins. COMPARISON: None available at the time of this dictation. FINDINGS/IMPRESSION: Currently there is normal compressibility of the deep venous system from the common femoral vein thro ugh the proximal calf veins. No superficial venous thrombosis is identified. ACT 112: Negative or not required by law. Electronically signed by: Satya Kearney M.D. 08/03/2022 6:28 PM
[2022-08-03] MEDS ORDERED: VANCOMYCIN HCL 2,250 MG in SODIUM CHLORIDE 0.9% 500 ML IV ONE (18:33)
[2022-08-03] MEDS ORDERED: VANCOMYCIN CONSULT ACTIVE PRN (18:33)
[2022-08-03 20:25] LABS: Appearance Urine Cloudy (Clear); Bacteria Urine Automated 1+ (Negative); Bilirubin Urine Negative (Negative); Blood Urine Negative (Negative); Color Urine Yellow; Epithelial Cell Urine Auto >30 /lpf (0-5); Glucose Urine UA 3+ (Negative); Ketones Urine 3+ (Negative); Leukocyte Esterase Urine Trace (Negative); Nitrite Urine Negative (Negative); Protein Urine Negative (Negative); RBC Urine Automated 0-4 /hpf (0-4); Specific Gravity Urine > 1.045 (1.000-1.030); Urobilinogen Urine Negative (Negative); WBC Urine Automated >30 /hpf (0-5); pH Urine 5.5 (4.5-7.5)
--- NOTE | 2022-08-03 21:19 | History & Physical Report ---
Date of Service August 03, 2022 Assessment & Plan (1) Cellulitis of left lower extremity without foot: Plan: 61yo Female australian speaking with PMH DM2 cirrhosis 2/2 hepatitis C, portal vein thrombosis on warfarin here for left leg cellulitis. Cellulitis -doppler neg -leg XR neg for fracture -WBC 5.76, lactate normal, procal 1.44 -received rocephin vanc in ED -ordered MRSA nares -continue rocephin vanc at this time, if MRSA nares negative stop vanc -Ucx Bcx pending Hepatitis -continue lasix, spironolactone, warfarin DM2 -ordered SSI FENa: DM2 Code Status: full DVT PPX: warfarin Dispo: med/surg Samreen Hand D.O. PGY 2, FCM (2) Cirrhosis of liver: (3) Hepatitis C: (4) Diabetes: (5) Portal vein thrombosis: History of Present Illness Chief Complaint: Cellulitis Primary Care Provider: Dennis Amaro MD 61yo Female australian speaking with PMH DM2 cirrhosis 2/2 hepatitis C, portal vein thrombosis on warfarin here for left leg cellulitis. Associate Merchandiser used to obtain history. Patient states symptoms began last night noted increasing leg pain warmth redness was worried it was infected. She denies any recent cuts or injuries to her leg. Tonight she noted her BSG was 533, took her PRN jardiance BSG went down to 364. Also noted chills fever temp 99.8F. Had some mild nausea none today, no SOB. Has back pain chronic Allergies Allergy/AdvReac Type Severity Reaction Status Date / Time menthol Allergy Severe Anaphylaxis Verified 08/03/22 18:49 mint Allergy Severe Anaphylaxis Verified 08/03/22 18:49 Home Medications Medication Instructions Recorded Confirmed Type polyethylene glycol 3350 17 gram 17 g PO BID PRN constipation #60 ea 04/02/20 08/03/22 Rx oral powder packet (Miralax) furosemide 40 mg tablet 40 mg PO DAILY 10/03/20 08/03/22 History empagliflozin 10 mg tablet 10 mg PO DIRECTED PRN IF BSG 05/27/22 08/03/22 History (Jardiance) >200 spironolactone 100 mg tablet 100 mg PO QAM 05/27/22 08/03/22 History warfarin 5 mg tablet See Rx Instructions PO UD #140 tabs 07/08/22 08/03/22 Rx Past Med/Surg History Medical History Ascites Cirrhosis of liver Diabetes NIDDM Edema bilateral legs, comes and goes. Hepatitis C dx in [place] in 2019 during a vacation - son states patient did have treatment in the past unsure if it was October 2020 or October 2021. History of abdominal paracentesis Hypothyroidism hx of taking levothyroxine in November 2021 -- no longer takes. Lyme disease August 2020 - treated no current issues Partial small bowel obstruction son unaware of details Portal vein thrombosis (dx in 2020) currently on warfarin. Sepsis hx in 2020. 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 Communication Tools: IPad, Writing Tablet, Physical Gestures and Other Proj Mgr Required: Yes and Video Beliefs That Will Affect Care: None marital status: Single marital status details: from ; he lives in [facility]; he has HepC Current Living Situation: Family Current Living Situation Comment: lives with son in an apartment current occupational status: retired How many Children do You have: 2 Other Information That Helps Us Care for You: No other: 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; 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 Feels Safe at Home: Yes Assistive Devices: Walker Physical Exam Constitutional: well developed, well nourished, cooperative and comfortable Eyes: PERRL, conjunctivae normal, anicteric sclerae ENMT: external ear and nose normal, oropharynx normal Neck: trachea midline, no thyromegaly Respiratory: normal respiratory effort, lungs clear to auscultation Cardiovascular: Rate/Rhythm: regular rate and regular rhythm Gastrointestinal (Abdomen): Inspection/Auscultation: abdomen normal to inspection Percussion/Palpation: + abdomen tender (epigastric and LUQ) and abdomen soft Skin: increased warmth erythema swelling in left lower extremity Results & Data Results & Data Vital Signs (Past 12 Hours) Vital Signs Temp Pulse Pulse Resp BP BP Pulse Ox 08/03/22 20:00 76 15 121/58 L 97 08/03/22 19:30 77 20 107/57 L 95 08/03/22 19:00 76 14 117/64 97 08/03/22 18:45 77 17 110/62 97 08/03/22 18:45 37.0 C 08/03/22 18:00 80 16 117/61 96 08/03/22 17:30 85 12 102/56 L 98 08/03/22 16:30 89 18 113/58 L 95 08/03/22 16:29 88 08/03/22 16:26 89 18 128/62 96 08/03/22 16:05 36.8 C 92 H 18 109/65 95 O2 Del Method 08/03/22 20:00 Room Air 08/03/22 19:30 Room Air 08/03/22 19:00 Room Air 08/03/22 18:45 Room Air 08/03/22 18:45 08/03/22 18:00 Room Air 08/03/22 17:30 Room Air 08/03/22 16:30 Room Air 08/03/22 16:29 08/03/22 16:26 Room Air 08/03/22 16:05 Room Air Supervising Physician Co-Signing Physician Notes Attending addendum: I have physically seen this patient, have supervised the medical residents activities, and agree with the H&P unless as otherwise noted. Assessment and Plan: Left lower extremity cellulitis- Venous Doppler negative for DVT X-ray negative for fracture Vancomycin IV and ceftriaxone IV MRSA swab Follow blood cultures Liver cirrhosis/hepatitis C/portal vein thrombosis- Continue warfarin, INR therapeutic at 2.2 Continue furosemide and spironolactone Diabetes mellitus- Hold Jardiance Placed on Accu-Cheks with NovoLog SSI Remaining orders and notations as noted Resident Activity Tracking Resident Involvement: Resident Care Provided Care Provided: Adult Hospital Medicine (2) Cirrhosis of liver Ascites presence: with ascites Hepatic cirrhosis type: unspecified hepatic cirrhosis Qualified Code(s): K74.60 - Unspecified cirrhosis of liver; R18.8 - Other ascites (3) Hepatitis C Hepatic coma status: without hepatic coma Viral hepatitis chronicity: chronic Qualified Code(s): B18.2 - Chronic viral hepatitis C
[2022-08-03] MEDS ORDERED: GLUCOSE 40% GEL 15 GM TUBE PO PRN (22:42)
[2022-08-03] MEDS ORDERED: GLUCOSE 10 TAB/TUBE PO PRN (22:42)
[2022-08-03] MEDS ORDERED: DEXTROSE 50% 50 ML SYRINGE IV PRN (22:42)
[2022-08-03] MEDS ORDERED: GLUCAGON FOR INJ 1 MG VIAL SQ PRN (22:42)
[2022-08-03] MEDS ORDERED: CARBOHYDRATES FOR HYPOGLYCEMIA PO PRN (22:42)
[2022-08-03] MEDS: INSULIN ASPART PER UNIT CHARGE SC SCH (23:16)
[2022-08-04] MEDS: LANTUS PER UNIT CHARGE SQ SCH ×3 (00:02→20:59)
[2022-08-04] MEDS: WARFARIN SOD 7.5 MG TAB PO SCH ×2 (00:03→16:58)
[2022-08-04] MEDS: VANCOMYCIN HCL 1,500 MG in SODIUM CHLORIDE 0.9% 500 ML IV SCH ×2 (05:13→17:42)
[2022-08-04] MEDS: INSULIN ASPART PER UNIT CHARGE SC SCH ×4 (09:03→20:59)
[2022-08-04] MEDS: SPIRONOLACTONE 100 MG TAB PO SCH (09:09)
[2022-08-04] MEDS: FUROSEMIDE 40 MG TAB PO SCH (09:09)
[2022-08-04] MEDS: cefTRIAXone SODIUM 2,000 MG in DEXTROSE 5% 50 ML IV SCH (09:09)
[2022-08-04 09:11] LABS: BUN Creatinine Ratio 33.3 (10-20); Calcium 8.1 mg/dl (8.6-10.3); Creatinine Clr Calc Pharmacy 173.4 ml/min; Est GFR (African American) 127.3 ml/min; Est GFR (Non-African American) 109.9 ml/min; Magnesium 1.8 mg/dl (1.7-2.4); Potassium 3.9 mmol/L (3.5-5.1)
[2022-08-04 09:24] LABS: INR 2.4 (0.9-1.1); Prothrombin Time 24.5 Seconds (9.0-12.0)
[2022-08-04 10:06] LABS: Basophils # (auto) 0.02 K/uL (0-0.2); Basophils % (auto) 0.5 %; Eosinophils # (auto) 0.11 K/uL (0-0.50); Eosinophils % (auto) 2.6 %; Hematocrit (blood only) 37.5 % (37.0-47.0); Hemoglobin 12.9 g/dl (12.0-16.0); Immature Granulocytes # (auto) 0.01 K/uL (0.01-0.20); Immature Granulocytes % (auto) 0.2 %; Lymphocytes % (auto) 21.6 %; Mean Corpuscular Hemoglobin 29.4 pg (25.0-34.0); Mean Corpuscular Hgb Conc 34.4 g/dL (32.0-36.0); Mean Corpuscular Volume 85.4 fL (80.0-100.0); Neutrophils # (auto) 2.63 K/uL (1.40-6.50); Neutrophils % (auto) 63.1 %; Platelet Count 45 K/uL (130-400); RDW Coefficient of Variation 16.3 % (11.5-14.5); RDW Standard Deviation 50.3 fL (36.4-46.3); Red Blood Count 4.39 M/uL (4.20-5.40); White Blood Count 4.17 K/ul (4.8-10.8)
--- NOTE | 2022-08-04 12:04 | Pharmacy Report ---
Pharmacy PK ABX Note - Date of Service August 04, 2022 - Assessment and Plan Assessment 61 year old F receiving CEFTRIAXONE/VANCOMYCIN for treatment of cellulitis. No leukocytosis, afebrile, procalcitonin 1.44. Blood/urine cultures pending. Plan Vancomycin * Loading dose: 2250 mg IV x 1 * Maintenance dose: 1500 mg IV every 12 hours * Regimen is predicted to achieve target AUC/JEEVAN of 400-600 mg/L.hr * Random level to be ordered if continued >48 hours Pharmacy will continue to follow and will adjust dose/frequency as necessary. Thank you. Pharmacy has transitioned to AUC monitoring for vancomycin. AUC/JEEVAN is the preferred PK/PD target and is associated with decreased risk of nephrotoxicity compared to traditional trough targets.
--- NOTE | 2022-08-04 19:45 | Billing Data ---
Date of Service August 04, 2022 Coding Level of Care Code 78113 INT INP/OBS CARE
--- NOTE | 2022-08-04 20:25 | Hospitalist Progress Note ---
Date of Service August 04, 2022 Assessment & Plan (1) Cellulitis of left lower extremity without foot: Plan: stable, +/- slightly improved cont rocephin cont vanco although MRSA INVESTIGATOR VICE swab is neg she is still at risk of MRSA given immunocompromised state from cirrhosis follow blood cx's no evidence on exam of deeper infection or joint involvement along the leg (2) Cirrhosis of liver: Plan: 2nd HepC compensated on exam cont usual diuretics, etc (3) Hepatitis C: (4) Diabetes: Plan: a1c 9.2% last month cont basal-bolus insulin regimen & adjust as necessary (5) Portal vein thrombosis: Plan: cont coumadin home regimen daily INR while here caution w/ coumadin in setting of #7 (which is chronic and likely due to cirrhosis itself) (6) Morbid obesity with BMI of 40.0-44.9, adult: Plan: BMI 41 (7) Thrombocytopenia: Plan: chronic last 2-3 years baseline 40s to 80s with most in 40s/50s this is likely due to cirrhosis TSH wnl consider checking b12/folate to be complete cautiously cont coumadin Plan updated pt's son, Satya, by phone change OBServation status to full admit will get PT/OT evals while here as well Admission and Anticipated Discharge Date Admission Date: August 04, 2022 Subjective during the encounter used Browsy Conservation Assistant to converse with patient as she is Niuean speaking and has limited Greenlandic only complaint was that of LLE pain - some at rest , worse with activity/weight- bearing she feels better today - appetite improved, no nausea or emesis, no further fever Review of Systems Review of Systems: gen - no fevers or chills cv - no chest pain/orthopnea; + edema LLE pulm - no dyspnea or AGEE GI - no emesis/diarrhea Physical Exam Physical Exam: gen - obese, NAD, pleasant, nontoxic mouth - MMM, no thrush neck - no JVD heart - RRR, s1 s2 lungs - CTA b/l abd - soft NT ND BS+; no ascites ext - venous stasis changes b/l shins; pulses 2+ b/l; 1+ edema L ankle/foot & calle skin - cellulitis extending from mid-calf down to the mid-foot; warm erythema, no crepitus to palpation, no abscess seen, minimally tender to palpation along the calle musculo - passive ROM of L knee and L ankle does not cause pain; no joint swell ing Results & Data Results & Data Vital Signs (Past 12 Hours) Vital Signs Temp Pulse Resp BP Pulse Ox O2 Del Method 08/04/22 15:05 36.9 C 76 18 115/72 97 Room Air Laboratory Results Laboratory Results - last 48 hr 08/03/22 08/03/22 08/03/22 16:46 16:52 17:08 WBC 5.76 RBC 4.41 Hgb 12.8 Hct 38.1 MCV 86.4 MCH 29.0 MCHC 33.6 RDW Std Deviation 49.4 H RDW Coeff of Meg 15.9 H Plt Count 40 L Immature Gran % (Auto) 0.3 Neut % (Auto) 80.3 Lymph % (Auto) 11.1 [place] % (Auto) 7.8 Eos % (Auto) 0.3 Baso % (Auto) 0.2 Neut # (Auto) 4.62 Lymph # (Auto) 0.64 L [place] # (Auto) 0.45 Eos # (Auto) 0.02 Baso # (Auto) 0.01 Immature Gran # (Auto) 0.02 Platelet Estimate Decreased L PT INR APTT PTT Ratio Sodium Potassium Chloride Carbon Dioxide Anion Gap BUN Creatinine Est Cr Clr Drug Dosing Est GFR ( Amer) Est GFR (Non-Af Amer) BUN/Creatinine Ratio Glucose POC Glucose 160 H Lactate Calcium Magnesium Total Bilirubin AST ALT Alkaline Phosphatase Total Protein Albumin Globulin Albumin/Globulin Ratio Procalcitonin TSH Urine Color Urine Appearance Urine pH Ur Specific [place]ows Urine Protein Urine Glucose (UA) Urine Ketones Urine Blood Urine Nitrite Urine Bilirubin Urine Urobilinogen Ur Leukocyte Esterase Urine WBC (Auto) Urine RBC (Auto) U Hyaline Cast (Auto) U Epithel Cells (Auto) Urine Bacteria (Auto) Urine Yeast Nasal Screen MRSA (PCR) SARS-CoV-2, RNA, NAAT NEGATIVE 08/03/22 08/03/22 08/03/22 17:08 17:08 17:08 WBC RBC Hgb Hct MCV MCH MCHC RDW Std Deviation RDW Coeff of Meg Plt Count Immature Gran % (Auto) Neut % (Auto) Lymph % (Auto) [place] % (Auto) Eos % (Auto) Baso % (Auto) Neut # (Auto) Lymph # (Auto) [place] # (Auto) Eos # (Auto) Baso # (Auto) Immature Gran # (Auto) Platelet Estimate PT 22.9 H INR 2.2 H APTT 37.9 H PTT Ratio 1.3 Sodium 134 L Potassium 3.3 L Chloride 102 Carbon Dioxide 22 Anion Gap 10 BUN 13 Creatinine 0.50 L Est Cr Clr Drug Dosing 154.5 Est GFR ( Amer) 120.2 Est GFR (Non-Af Amer) 103.7 BUN/Creatinine Ratio 26.0 H Glucose 172 H POC Glucose Lactate Calcium 8.0 L Magnesium Total Bilirubin 1.9 H AST 27 ALT 22 Alkaline Phosphatase 85 Total Protein 7.0 Albumin 3.2 L Globulin 3.8 Albumin/Globulin Ratio 0.8 L Procalcitonin 1.44 H TSH Urine Color Urine Appearance Urine pH Ur Specific [place] Urine Protein Urine Glucose (UA) Urine Ketones Urine Blood Urine Nitrite Urine Bilirubin Urine Urobilinogen Ur Leukocyte Esterase Urine WBC (Auto) Urine RBC (Auto) U Hyaline Cast (Auto) U Epithel Cells (Auto) Urine Bacteria (Auto) Urine Yeast Nasal Screen MRSA (PCR) SARS-CoV-2, RNA, NAAT 08/03/22 08/03/22 08/03/22 17:37 20:14 21:40 WBC RBC Hgb Hct MCV MCH MCHC RDW Std Deviation RDW Coeff of Meg Plt Count Immature Gran % (Auto) Neut % (Auto) Lymph % (Auto) [place] % (Auto) Eos % (Auto) Baso % (Auto) Neut # (Auto) Lymph # (Auto) [place] # (Auto) Eos # (Auto) Baso # (Auto) Immature Gran # (Auto) Platelet Estimate PT INR APTT PTT Ratio Sodium Potassium Chloride Carbon Dioxide Anion Gap BUN Creatinine Est Cr Clr Drug Dosing Est GFR ( Amer) Est GFR (Non-Af Amer) BUN/Creatinine Ratio Glucose POC Glucose Lactate 1.7 Calcium Magnesium Total Bilirubin AST ALT Alkaline Phosphatase Total Protein Albumin Globulin Albumin/Globulin Ratio Procalcitonin TSH Urine Color Yellow Urine Appearance Cloudy A Urine pH 5.5 Ur Specific [place] > 1.045 H Urine Protein Negative Urine Glucose (UA) 3+ H Urine Ketones 3+ H Urine Blood Negative Urine Nitrite Negative Urine Bilirubin Negative Urine Urobilinogen Negative Ur Leukocyte Esterase Trace H Urine WBC (Auto) >30 H Urine RBC (Auto) 0-4 U Hyaline Cast (Auto) 1-5 U Epithel Cells (Auto) >30 H Urine Bacteria (Auto) 1+ H Urine Yeast Not Reportable Nasal Screen MRSA (PCR) Negative SARS-CoV-2, RNA, NAAT 08/03/22 08/04/22 08/04/22 23:12 08:13 08:40 WBC 4.17 L RBC 4.39 Hgb 12.9 Hct 37.5 MCV 85.4 MCH 29.4 MCHC 34.4 RDW Std Deviation 50.3 H RDW Coeff of Meg 16.3 H Plt Count 45 L Immature Gran % (Auto) 0.2 Neut % (Auto) 63.1 Lymph % (Auto) 21.6 [place] % (Auto) 12.0 Eos % (Auto) 2.6 Baso % (Auto) 0.5 Neut # (Auto) 2.63 Lymph # (Auto) 0.90 L [place] # (Auto) 0.50 Eos # (Auto) 0.11 Baso # (Auto) 0.02 Immature Gran # (Auto) 0.01 Platelet Estimate PT INR APTT PTT Ratio Sodium Potassium Chloride Carbon Dioxide Anion Gap BUN Creatinine Est Cr Clr Drug Dosing Est GFR ( Amer) Est GFR (Non-Af Amer) BUN/Creatinine Ratio Glucose POC Glucose 109 H 99 Lactate Calcium Magnesium Total Bilirubin AST ALT Alkaline Phosphatase Total Protein Albumin Globulin Albumin/Globulin Ratio Procalcitonin TSH Urine Color Urine Appearance Urine pH Ur Specific [place] Urine Protein Urine Glucose (UA) Urine Ketones Urine Blood Urine Nitrite Urine Bilirubin Urine Urobilinogen Ur Leukocyte Esterase Urine WBC (Auto) Urine RBC (Auto) U Hyaline Cast (Auto) U Epithel Cells (Auto) Urine Bacteria (Auto) Urine Yeast Nasal Screen MRSA (PCR) SARS-CoV-2, RNA, NAAT 08/04/22 08/04/22 08/04/22 08:40 08:40 08:40 WBC RBC Hgb Hct MCV MCH MCHC RDW Std Deviation RDW Coeff of Meg Plt Count Immature Gran % (Auto) Neut % (Auto) Lymph % (Auto) [place] % (Auto) Eos % (Auto) Baso % (Auto) Neut # (Auto) Lymph # (Auto) [place] # (Auto) Eos # (Auto) Baso # (Auto) Immature Gran # (Auto) Platelet Estimate PT 24.5 H INR 2.4 H APTT PTT Ratio Sodium 134 L Potassium 3.9 Chloride 104 Carbon Dioxide 24 Anion Gap 6 BUN 14 Creatinine 0.42 L Est Cr Clr Drug Dosing 173.4 Est GFR ( Amer) 127.3 Est GFR (Non-Af Amer) 109.9 BUN/Creatinine Ratio 33.3 H Glucose 137 H POC Glucose Lactate Calcium 8.1 L Magnesium 1.8 Total Bilirubin AST ALT Alkaline Phosphatase Total Protein Albumin Globulin Albumin/Globulin Ratio Procalcitonin TSH 2.999 Urine Color Urine Appearance Urine pH Ur Specific [place] Urine Protein Urine Glucose (UA) Urine Ketones Urine Blood Urine Nitrite Urine Bilirubin Urine Urobilinogen Ur Leukocyte Esterase Urine WBC (Auto) Urine RBC (Auto) U Hyaline Cast (Auto) U Epithel Cells (Auto) Urine Bacteria (Auto) Urine Yeast Nasal Screen MRSA (PCR) SARS-CoV-2, RNA, NAAT 08/04/22 08/04/22 12:03 17:09 WBC RBC Hgb Hct MCV MCH MCHC RDW Std Deviation RDW Coeff of Meg Plt Count Immature Gran % (Auto) Neut % (Auto) Lymph % (Auto) [place] % (Auto) Eos % (Auto) Baso % (Auto) Neut # (Auto) Lymph # (Auto) [place] # (Auto) Eos # (Auto) Baso # (Auto) Immature Gran # (Auto) Platelet Estimate PT INR APTT PTT Ratio Sodium Potassium Chloride Carbon Dioxide Anion Gap BUN Creatinine Est Cr Clr Drug Dosing Est GFR ( Amer) Est GFR (Non-Af Amer) BUN/Creatinine Ratio Glucose POC Glucose 152 H 122 H Lactate Calcium Magnesium Total Bilirubin AST ALT Alkaline Phosphatase Total Protein Albumin Globulin Albumin/Globulin Ratio Procalcitonin TSH Urine Color Urine Appearance Urine pH Ur Specific [place] Urine Protein Urine Glucose (UA) Urine Ketones Urine Blood Urine Nitrite Urine Bilirubin Urine Urobilinogen Ur Leukocyte Esterase Urine WBC (Auto) Urine RBC (Auto) U Hyaline Cast (Auto) U Epithel Cells (Auto) Urine Bacteria (Auto) Urine Yeast Nasal Screen MRSA (PCR) SARS-CoV-2, RNA, NAAT PG Care Time/CCT Total # of Minutes Spent Total Time Spent with Patient: Total time spent is greater than 50% in coordination of care (as documented) at patient's floor/unit and/or counseling patient: Coding Level of Care Code 44686 SUB INP/OBS CARE 2/35MIN Diagnoses Cellulitis of left lower extremity without foot L03.116 Cirrhosis of liver K74.60; R18.8 Ascites presence: with ascites Hepatic cirrhosis type: unspecified hepatic cirrhosis Hepatitis C B18.2 Hepatic coma status: without hepatic coma Viral hepatitis chronicity: chronic Diabetes E11.9 Portal vein thrombosis I81 Morbid obesity with BMI of 40.0-44.9, adult E66.01; Z68.41 Thrombocytopenia D69.6 (2) Cirrhosis of liver Ascites presence: with ascites Hepatic cirrhosis type: unspecified hepatic cirrhosis Qualified Code(s): K74.60 - Unspecified cirrhosis of liver; R18.8 - Other ascites (3) Hepatitis C Hepatic coma status: without hepatic coma Viral hepatitis chronicity: chronic Qualified Code(s): B18.2 - Chronic viral hepatitis C
[2022-08-05] MEDS: VANCOMYCIN HCL 1,500 MG in SODIUM CHLORIDE 0.9% 500 ML IV SCH ×2 (05:40→18:13)
[2022-08-05 07:52] LABS: BUN Creatinine Ratio 27.5 (10-20); Calcium 8.1 mg/dl (8.6-10.3); Est GFR (African American) 129.4 ml/min; Est GFR (Non-African American) 111.6 ml/min; Potassium 3.5 mmol/L (3.5-5.1)
[2022-08-05 08:05] LABS: Hematocrit (blood only) 36.2 % (37.0-47.0); Hemoglobin 12.1 g/dl (12.0-16.0); INR 2.7 (0.9-1.1); Mean Corpuscular Hemoglobin 29.2 pg (25.0-34.0); Mean Corpuscular Hgb Conc 33.4 g/dL (32.0-36.0); Mean Corpuscular Volume 87.4 fL (80.0-100.0); Platelet Count 44 K/uL (130-400); Prothrombin Time 27.9 Seconds (9.0-12.0); RDW Coefficient of Variation 16.2 % (11.5-14.5); RDW Standard Deviation 51.8 fL (36.4-46.3); Red Blood Count 4.14 M/uL (4.20-5.40); White Blood Count 2.75 K/ul (4.8-10.8)
[2022-08-05] MEDS: INSULIN ASPART PER UNIT CHARGE SC SCH ×4 (08:58→20:56)
[2022-08-05] MEDS: LANTUS PER UNIT CHARGE SQ SCH ×2 (08:59→20:55)
[2022-08-05] MEDS: cefTRIAXone SODIUM 2,000 MG in DEXTROSE 5% 50 ML IV SCH (09:04)
[2022-08-05] MEDS: SPIRONOLACTONE 100 MG TAB PO SCH (09:04)
[2022-08-05] MEDS: FUROSEMIDE 40 MG TAB PO SCH (09:04)
[2022-08-05] MEDS: WARFARIN SOD 7.5 MG TAB PO SCH (16:24)
[2022-08-05] MEDS ORDERED: oxyCODONE HCL IR 5 MG TAB (IMMEDIATE RELEASE) PO PRN (17:23)
[2022-08-05] MEDS: PANTOprazole 40 MG TAB PO SCH (18:13)
[2022-08-05] MEDS: SUCRALFATE 1 GM/10 ML UDC PO SCH ×2 (18:13→20:55)
[2022-08-05] MEDS: ADVANCED PROBIOTIC 1250 MG CAPSULE PO SCH (18:13)
[2022-08-06] MEDS ORDERED: VANCOMYCIN LEVEL ONE (05:30)
[2022-08-06] MEDS ORDERED: VANCOMYCIN HCL 1,500 MG in SODIUM CHLORIDE 0.9% 500 ML IV STA (07:39)
[2022-08-06] MEDS: ADVANCED PROBIOTIC 1250 MG CAPSULE PO SCH (08:15)
[2022-08-06] MEDS: SUCRALFATE 1 GM/10 ML UDC PO SCH ×2 (08:15→13:16)
[2022-08-06] MEDS: PANTOprazole 40 MG TAB PO SCH (08:15)
[2022-08-06] MEDS: FUROSEMIDE 40 MG TAB PO SCH (08:15)
[2022-08-06] MEDS: SPIRONOLACTONE 100 MG TAB PO SCH (08:16)
[2022-08-06] MEDS: LANTUS PER UNIT CHARGE SQ SCH (08:58)
[2022-08-06] MEDS: INSULIN ASPART PER UNIT CHARGE SC SCH ×2 (08:58→12:42)
--- NOTE | 2022-08-06 10:49 | Hospitalist Progress Note ---
Date of Service August 05, 2022 Assessment & Plan (1) Cellulitis of left lower extremity without foot: Plan: improving would continue IV abx at least 1 more day cont rocephin cont vanco although MRSA MACHINE LACER swab was neg she is still at risk of MRSA given immunocompromised state from cirrhosis follow blood cx's but thus far negative still no evidence on exam of deeper infection or joint involvement (2) Cirrhosis of liver: Plan: 2nd HepC remains compensated on exam cont usual diuretics, etc labs stable has chronic pancytopenia from her cirrhosis - cell counts low but acceptable follows with [facility] (3) Hepatitis C: Plan: with resulting cirrhosis per scanned records Rx with [facility] for the HepC in 2020 uncertain of last HepC RNA level showing eradication but notes allude to undetectable level in the last few years (4) Diabetes: Plan: a1c 9.2% last month cont basal-bolus insulin regimen & adjust as necessary (5) Portal vein thrombosis: Plan: 2020 - 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 other? start PPI start carafate re-eval tomorrow she does not show any signs of SBP on examination of note - CT abd/pelvis in 2020 showed -- IMPRESSION: 1. Again seen is nonocclusive thrombus within the main portal vein, as well as nearly occlusive thrombus at the portosplenic confluence and in the superior mesenteric vein. This has not significantly changed from 03/28/2020. 2. Again seen are thick walled and edematous loops of small bowel in the lower abdomen and pelvis with associated mesenteric venous congestion. This likely represents venous insufficiency/ischemia secondary to mesenteric venous thrombus. Correlate clinically for evidence of a superimposed infectious enteritis. 3. Trace nonocclusive thrombus is also seen within the splenic vein. 4. Cirrhotic liver morphology. 5. There is evidence of portal hypertension including a moderate volume of abdominopelvic ascites, marked splenomegaly, upper abdominal varices, esophageal varices, and recanalization of the periumbilical vein. 6. The gastric mucosa appears thickened and hyperemic. Correlate clinically for evidence of gastritis. This could be further assessed with endoscopy if clinically warranted. 7. Mild wall thickening of the right colon likely represents portal colopathy. 8. Small right pleural effusion. 9. The endometrium appears heterogeneous and thickened for age measuring up to 1.9 cm. Follow-up with a nonemergent pelvic ultrasound and gynecology assessment is recommended. 10. Unremarkable CT urogram assessment of the kidneys and ureters. No renal calculi are identified. 11. The bladder is decompressed and appears thick walled. Correlation with urinalysis will be required. treat for gastritis and f/u tomorrow with serial exam etc Plan updated pt's son, Satya, by phone yesterday pm PT/OT discharge - home next 48 hours depending on LLE cellulitis clinical response Admission and Anticipated Discharge Date Admission Date: August 04, 2022 Subjective during the encounter I used the Tomorrowish rn trauma to communicate with patient her aki[place] language is [place]an patient reports that overall the LLE is improved the redness, soreness, and pain is improved certainly not resolved but much better in comparison to admission the area of most tenderness is the posterior calf, especially with walking denies L ankle pain denies L knee pain eating is robust - 100% of meals consumed no nausea no emesis reports also some mild epigastric discomfort in the high abdomen blames this discomfort on the IV antibiotics no pain with consuming meals she asks for probiotics Review of Systems Review of Systems: gen - no fevers or chills cv - no chest pain, no orthopnea pulm - no cough, no dyspnea, no AGEE GI - no diarrhea Physical Exam Physical Exam: gen - obese, NAD, pleasant, nontoxic - looks good mouth - MMM neck - no JVD heart - RRR, s1 s2 lungs - CTA b/l abd - soft ND BS+; no ascites; tender to palpation high epigastric region to deep palpation ext - venous stasis changes b/l shins; pulses 2+ b/l; <1+ edema L ankle/foot & calle skin - cellulitis extending from mid-calf down to the mid-foot is IMPROVED today; warm erythema is retreating from the previously placed demarkation lines on the anterior calle and on the dorsum of the left mid-foot; no crepitus to palpation, no abscess seen, mildly tender to palpation on the posterior calf musculo - passive ROM of L knee and L ankle does not cause pain; no synovitis psych - a/o x 3 Results & Data Results & Data Vital Signs (Past 12 Hours) Vital Signs Temp Pulse Resp BP Pulse Ox O2 Del Method 08/05/22 15:41 37.1 C 80 20 126/80 97 Room Air Laboratory Results Laboratory Results - last 48 hr 08/04/22 08/04/22 08/04/22 12:03 17:09 20:16 WBC RBC Hgb Hct MCV MCH MCHC RDW Std Deviation RDW Coeff of Meg Plt Count PT INR Sodium Potassium Chloride Carbon Dioxide Anion Gap BUN Creatinine Est Cr Clr Drug Dosing Est GFR ( Amer) Est GFR (Non-Af Amer) BUN/Creatinine Ratio Glucose POC Glucose 152 H 122 H 232 H Calcium Random Vancomycin 08/05/22 08/05/22 08/05/22 07:02 07:02 07:02 WBC 2.75 L RBC 4.14 L Hgb 12.1 Hct 36.2 L MCV 87.4 MCH 29.2 MCHC 33.4 RDW Std Deviation 51.8 H RDW Coeff of Meg 16.2 H Plt Count 44 L PT 27.9 H INR 2.7 H Sodium 137 Potassium 3.5 Chloride 106 Carbon Dioxide 25 Anion Gap 6 BUN 11 Creatinine 0.40 L Est Cr Clr Drug Dosing 182.0 Est GFR ( Amer) 129.4 Est GFR (Non-Af Amer) 111.6 BUN/Creatinine Ratio 27.5 H Glucose 141 H POC Glucose Calcium 8.1 L Random Vancomycin 08/05/22 08/05/22 08/05/22 07:59 11:55 16:58 WBC RBC Hgb Hct MCV MCH MCHC RDW Std Deviation RDW Coeff of Meg Plt Count PT INR Sodium Potassium Chloride Carbon Dioxide Anion Gap BUN Creatinine Est Cr Clr Drug Dosing Est GFR ( Amer) Est GFR (Non-Af Amer) BUN/Creatinine Ratio Glucose POC Glucose 130 H 226 H 175 H Calcium Random Vancomycin PG Care Time/CCT Total # of Minutes Spent Total Time Spent with Patient: Total time spent is greater than 50% in coordination of care (as documented) at patient's floor/unit and/or counseling patient: Coding Level of Care Code 45418 SUB INP/OBS CARE 2/35MIN Diagnoses Cellulitis of left lower extremity without foot L03.116 Cirrhosis of liver K74.60; R18.8 Ascites presence: with ascites Hepatic cirrhosis type: unspecified hepatic cirrhosis Hepatitis C B18.2 Hepatic coma status: without hepatic coma Viral hepatitis chronicity: chronic Diabetes E11.9 Portal vein thrombosis I81 Morbid obesity with BMI of 40.0-44.9, adult E66.01; Z68.41 Thrombocytopenia D69.6 Epigastric pain R10.13 (2) Cirrhosis of liver Ascites presence: with ascites Hepatic cirrhosis type: unspecified hepatic cirrhosis Qualified Code(s): K74.60 - Unspecified cirrhosis of liver; R18.8 - Other ascites (3) Hepatitis C Hepatic coma status: without hepatic coma Viral hepatitis chronicity: chronic Qualified Code(s): B18.2 - Chronic viral hepatitis C
[2022-08-06] MEDS: cefTRIAXone SODIUM 2,000 MG in DEXTROSE 5% 50 ML IV SCH (10:57)
--- NOTE | 2022-08-06 13:30 | Discharge Summary ---
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 Patient states symptoms began last night noted increasing leg pain warmth redness was worried it was infected. She denies any recent cuts or injuries to her leg. Tonight she noted her BSG was 533, took her PRN jardiance BSG went down to 364. Also noted chills fever temp 99.8F. Had some mild nausea none today, no SOB. Has back pain chronic Principal Diagnosis Left lower extremity cellulitis Hyperglycemia Discharge Exam Constitutional WD/WN, vitals as above Respiratory normal respiratory effort, lungs clear to auscultation Cardiovascular RRR, no murmur, no edema Skin Bilat legs with chronic venous stasis changes and brownish hyperpigmentation of skin Left leg with very minimal erythema around lateral distal calf, mild ttp at that site, otherwise significantly receded from line of demarkation 2+ DP pulses bilat Psychiatric A+Ox3, euthymic affect Discharge Data Allergies Allergy/AdvReac Type Severity Reaction Status Date / Time menthol Allergy Severe Anaphylaxis Verified 08/03/22 18:49 mint Allergy Severe Anaphylaxis Verified 08/03/22 18:49 Consultations 08/03/22 19:43 ED Decision to Admit Stat Ordered Studies 08/03/22 16:38 US venous doppler LE LT Stat Hospital Course (1) Cellulitis of left lower extremity without foot: greatly improved received rocephin and IV vanco x 3 days BCxs remain NGTD no fevers, feels well although 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 neg she is still at risk of MRSA given immunocompromised state from cirrhosis still no evidence on exam of deeper infection or joint involvement; tib/fib xrays negative for bony involvement and Doppler venous neg for VDVT -dc to home on 7 more day sof Augmentin and doxycycline for broad spectrum coverage (2) Cirrhosis of liver: 2nd HepC remains compensated on exam cont usual diuretics, etc labs stable has chronic pancytopenia from her cirrhosis - cell counts low but acceptable follows with [facility] (3) Hepatitis C: with resulting cirrhosis per scanned records Rx with [facility] for the HepC in 2020 uncertain of last HepC RNA level showing eradication but notes allude to undetectable level in the last few years (4) Diabetes: a1c 9.2% last month had hyperglycemia here on admission which is improved with insulin continue home Jardiance and needs f/u with PCP for improved glucose control at home (5) Portal vein thrombosis: 2020 - 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 she does not show any signs of SBP on examination of note - CT abd/pelvis in 2020 showed -- IMPRESSION: 1. Again seen is nonocclusive thrombus within the main portal vein, as well as nearly occlusive thrombus at the portosplenic confluence and in the superior mesenteric vein. This has not significantly changed from 03/28/2020. 2. Again seen are thick walled and edematous loops of small bowel in the lower abdomen and pelvis with associated mesenteric venous congestion. This likely represents venous insufficiency/ischemia secondary to mesenteric venous thrombus. Correlate clinically for evidence of a superimposed infectious enteritis. 3. Trace nonocclusive thrombus is also seen within the splenic vein. 4. Cirrhotic liver morphology. 5. There is evidence of portal hypertension including a moderate volume of abdominopelvic ascites, marked splenomegaly, upper abdominal varices, esophageal varices, and recanalization of the periumbilical vein. 6. The gastric mucosa appears thickened and hyperemic. Correlate clinically for evidence of gastritis. This could be further assessed with endoscopy if clinically warranted. 7. Mild wall thickening of the right colon likely represents portal colopathy. 8. Small right pleural effusion. 9. The endometrium appears heterogeneous and thickened for age measuring up to 1.9 cm. Follow-up with a nonemergent pelvic ultrasound and gynecology assessment is recommended. 10. Unremarkable CT urogram assessment of the kidneys and ureters. No renal calculi are identified. 11. The bladder is decompressed and appears thick walled. Correlation with urinalysis will be required. -dc to home with PPI daily x 2 week course Plan called pt's son, Satya, and left VM on day of discharge Needs walk erfor home use-ordered through Dispo-dc to home Total Time Total Time Spent Total Time Spent (In Minutes): 35 min Discharge Plan Discharge Items Patient Disposition: Home - Self-Care Reason For Visit: LLE CELLULITIS Discharge Diagnosis: Left lower extremity cellulitis Condition on Discharge: Good Activity: As commented below Bathing: No limitations Exercise/Sports: Gradually increase as tolerated Exercise Comment: elevate left leg when sitting Non-emergency contact: Primary Care Provider Call non-emergency contact if: you have any medication questions, your symptoms worsen, your pain is not controlled, your pain is worsening, you have a fever and your temperature is above 101 Follow-up/Referrals: Dennis Amaro MD [Primary Care Provider] - (Follow up within 1-2 weeks.) Diet: Carb Consistent or DM2 and Low Sodium (2gm) Addtl Attending Provider Instructions: Please finish out a course of Augmentin and doxycycline for 7 more days for your leg infection. Follow up with the Anticoagulation clinic within 1 week as your INR may need closer monitoring while on antibiotics. anna Farrar augmentina i doksitsiklina yeshche 7 dney dlya lecheniya infektsii nog. Obratites' v antikoagulyantnuyu kliniku v techeniye 1 nedeljavier babcock'analia vo vremya priyema antibiotikov [facility] potrebovat'sya boleye tshchatel'nyy monitoring MNO. Pending Studies at Discharge: Yes (Final blood cultures-no growth to date) Stand-Alone Forms: My [facility] [employer] Coffee, Smoking Cessation Medications and DC Order Prescriptions: New oxycodone 5 mg Tablet 5 mg PO Q8H PRN (Reason: moderate-severe pain) Qty: 6 0RF pantoprazole 40 mg Tablet,Delayed Release (Dr/Ec) 40 mg PO QAM Qty: 14 0RF doxycycline hyclate 100 mg tablet 100 mg PO BID 7 Days Qty: 14 0RF amoxicillin-pot clavulanate 875-125 mg tablet 1 tab PO BID Qty: 14 0RF Continued warfarin 5 mg tablet See Rx Instructions PO UD Qty: 140 1RF Rx Instructions: 7.5 mg q evening per [facility] orally use as directed polyethylene glycol 3350 [Miralax] 17 gram Powder In Packet 17 g PO BID PRN (Reason: constipation) Qty: 60 0RF furosemide 40 mg tablet 40 mg PO DAILY spironolactone 100 mg Tablet 100 mg PO QAM Jardiance 10 mg Tablet 10 mg PO DIRECTED PRN (Reason: IF BSG >200) Discharge Orders: Discharge Order (Routine); Ordered 08/06/22 Ordered By: Shakira Alcaraz Admission Data Admit Date/Time: 08/04/22 15:44 Attending Provider: Shakira Alcaraz Admit Provider: Samreen Hand Primary Care Provider: Dennis Amaro Other Providers: Jai Reynoso Coding Level of Care Code 33344 INP/OBS DISCH >30 MIN Diagnoses Cellulitis of left lower extremity without foot L03.116 Cirrhosis of liver K74.60; R18.8 Ascites presence: with ascites Hepatic cirrhosis type: unspecified hepatic cirrhosis Hepatitis C B18.2 Hepatic coma status: without hepatic coma Viral hepatitis chronicity: chronic Diabetes E11.9 Portal vein thrombosis I81 Morbid obesity with BMI of 40.0-44.9, adult E66.01; Z68.41 Thrombocytopenia D69.6 Epigastric pain R10.13
--- NOTE | 2022-08-06 13:42 | Pharmacy Report ---
Pharmacy PK ABX Note - Date of Service August 06, 2022 - Assessment and Plan Assessment 61 year old F receiving CEFTRIAXONE/VANCOMYCIN for treatment of cellulitis. No leukocytosis, afebrile, procalcitonin 1.44. Blood/urine cultures pending. Plan Vancomycin * Current regimen: 1500 mg IV every 12 hours * Random level obtained 08/06/22 resulted as 6.0 mcg/mL. This is subtherapeutic. However, patient will be discharged today on oral antibiotics so no further vancomycin doses will be ordered. Pharmacy will continue to follow and will adjust dose/frequency as necessary. Thank you. Pharmacy has transitioned to AUC monitoring for vancomycin. AUC/JEEVAN is the preferred PK/PD target and is associated with decreased risk of nephrotoxicity compared to traditional trough targets.
[2022-08-06] MEDS: WARFARIN SOD 7.5 MG TAB PO SCH (15:57)
== END 2022-08-06 17:21 | disposition home or self-care (01) | DRG 603 ==
LOC: 3E 15:51 → ED 15:51 → SUATTDRO 20:55 → 3E 21:37 → SUATTDRO 08-04 15:44

== ENCOUNTER 2022-11-02 23:34 | Inpatient (IN) ==
[2022-11-02] MEDS ORDERED: ONDANSETRON INJ 2 MG/ML 2 ML VIAL IV STA (23:52)
[2022-11-02] MEDS ORDERED: ACETAMINOPHEN 1,000 MG/100 ML VIAL IV STA (23:52)
[2022-11-02] MEDS ORDERED: PIPERACILLIN/TAZOBACTAM 4.5 GM/120 ML BAG IV ONE (23:52)
--- NOTE | 2022-11-03 00:38 | Emergency Department Note ---
History of Present Illness General Chief complaint: Illness Stated complaint: FEVER 102,NAUSEA,WEAKNESS Time Seen by Provider: 11/02/22 23:44 History of Present Illness This 61-year-old female on Coumadin with cirrhosis and diabetes presents to the ER complaining of fever, chills, nausea and abdominal pain for the past day. Tmax 102. Family was concerned and brought the patient in. Patient denies chest pain, headache, neck stiffness, vomiting, diarrhea. Son is here to translate. Patient is Montenegrin-speaking. No history of spontaneous bacterial peritonitis. Home Medications Medication Instructions Recorded Confirmed Type polyethylene glycol 3350 17 gram 17 g PO BID PRN constipation #60 ea 04/02/20 10/16/22 Rx oral powder packet (Miralax) furosemide 40 mg tablet 40 mg PO DAILY 10/03/20 10/16/22 History empagliflozin 10 mg tablet 10 mg PO DIRECTED PRN IF BSG 05/27/22 10/16/22 History (Jardiance) >200 spironolactone 100 mg tablet 100 mg PO QAM 05/27/22 10/16/22 History warfarin 5 mg tablet See Rx Instructions PO UD #140 tabs 07/08/22 10/16/22 Rx oxycodone 5 mg tablet 5 mg PO Q8H PRN moderate-severe 08/06/22 10/16/22 Rx pain #6 tabs pantoprazole 40 mg tablet,delayed 40 mg PO QAM #14 tabs 08/06/22 10/16/22 Rx release Allergies Allergy/AdvReac Type Severity Reaction Status Date / Time menthol Allergy Severe Anaphylaxis Verified 08/03/22 18:49 mint Allergy Severe Anaphylaxis Verified 08/03/22 18:49 Past Med/Surg History Medical History Ascites Cirrhosis of liver Diabetes NIDDM Edema bilateral legs, comes and goes. Epigastric pain Hepatitis C dx in [place] in 2019 during a vacation - son states patient did have treatment in the past unsure if it was October 2020 or October 2021. History of abdominal paracentesis Hypothyroidism hx of taking levothyroxine in November 2021 -- no longer takes. Lyme disease August 2020 - treated no current issues Partial small bowel obstruction son unaware of details Portal vein thrombosis (dx in 2020) currently on warfarin. Sepsis hx in 2020. 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 Communication Tools: Other Electroencephalograph Technician Required: Yes and Video Beliefs That Will Affect Care: None marital status: Single marital status details: from ; he lives in [facility]; he has HepC Current Living Situation: Family Current Living Situation Comment: lives with son in an apartment current occupational status: retired How many Children do You have: 2 other: In [facility] and [place] 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; 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 Feels Safe at Home: Yes Assistive Devices: Walker Review of Systems A total of 10 systems reviewed and were otherwise negative Physical Exam Vital Signs Vital Signs - 24 hr 11/02/22 23:39 11/03/22 01:13 11/03/22 01:36 Temperature 37.5 C Temperature Source Oral Pulse Rate 110 H 95 H 98 H Pulse Rate from SpO2 Sensor 98 H Respiratory Rate 18 18 19 Respiratory Effort / Characteristics Non-Labored Spontaneous Respiratory Depth Normal Respiratory Pattern Regular Blood Pressure 129/75 110/67 Blood Pressure Mean 93 81 Blood Pressure Position Sitting Pulse Oximetry 93 91 92 Oxygen Delivery Method Room Air Room Air Sepsis Recent Fever Within 48 Hours Yes Sepsis New/Unexplained Change in Mental Status N/A Sepsis Action Taken by Nursing No Action Required 11/03/22 01:35 Temperature Temperature Source Pulse Rate 94 H Pulse Rate from SpO2 Sensor Respiratory Rate Respiratory Effort / Characteristics Respiratory Depth Respiratory Pattern Blood Pressure Blood Pressure Mean Blood Pressure Position Pulse Oximetry Oxygen Delivery Method Sepsis Recent Fever Within 48 Hours Sepsis New/Unexplained Change in Mental Status Sepsis Action Taken by Nursing VITALS: Vitals are noted on the nurse's note and reviewed by myself. Vital signs reviewed. GENERAL: Female ill-appearing, in no acute distress, SKIN: The skin was without rashes, or bruising. There is no tenting of the skin. Capillary reflex less than 2 seconds. HEAD: Normocephalic atraumatic. EARS: External auditory canals clear, tympanic membranes pearly llanos without erythema or effusion bilaterally. EYES: Pupils equal round and reactive to light and accommodation. Conjunctivae without injection, sclerae without icterus. Extraocular movements intact. NOSE: Patent, turbinates without inflammation or discharge. MOUTH: Mucous membranes moist. Pharynx without erythema or exudate. Uvula midline. Airway patent. Tongue does not deviate. NECK: Supple without nuchal rigidity. No lymphadenopathy. No thyromegaly. Cervical spine is nontender. No JVD. HEART: Regular rate and rhythm LUNGS: Clear to auscultation bilaterally without wheezes, rales or rhonchi. No retractions or accessory muscle use. ABDOMEN: Positive bowel sounds x 4. Normal tympanic percussion. Soft, diffusely tender to palpation with increased pain mid abdomen, without masses or organomegaly. Fountain sign negative. No guarding or rebound tenderness. No CVA tenderness MUSCULOSKELETAL: No muscle atrophy noted. NEURO: Patient was alert and oriented to person place and time. Normal sensation to light and sharp touch. No focal neurological deficits. Course Administered Medications Discontinued Medications Sodium Chloride (Nss 1000ml) 1,000 mls @ 999 mls/hr IV .Q1H1M JOSE DAVID Stop: 11/03/22 01:45 Last Infusion: 11/03/22 01:57 Dose: 0 mls/hr Documented By: Admin: 11/03/22 00:51 Dose: 999 mls/hr Documented By: YOON Piperacillin Sod/Tazobactam Sod (Zosyn) 4.5 gm in 120 mls @ 240 mls/hr IV NOW ONE Stop: 11/03/22 00:21 Last Infusion: 11/03/22 01:57 Dose: 0 mls/hr Documented By: Admin: 11/03/22 00:51 Dose: 240 mls/hr Documented By: YOON Acetaminophen (Ofirmev) 1,000 mg in 100 mls @ 400 mls/hr IV NOW STA Stop: 11/03/22 00:06 Last Infusion: 11/03/22 01:14 Dose: 0 mls/hr Documented By: Admin: 11/03/22 00:44 Dose: 400 mls/hr Documented By: YOON Ioversol (Optiray 320 100ml) 93 ml IV ONCE ONE Stop: 11/03/22 00:57 Last Admin: 11/03/22 01:00 Dose: 93 ml Documented By: DOMINGUEZ Ondansetron HCl (Ondansetron Inj 2 Mg/Ml 2 Ml Vial) 4 mg IV NOW STA Stop: 11/02/22 23:53 Last Admin: 11/03/22 00:45 Dose: 4 mg Documented By: YOON Medical Decision Making Medical Records Attestation: I reviewed the patient's medical records. Home Medications Current Medication List: was personally reviewed by me Laboratory Data Attestation: I reviewed the patient's lab results. 11/03/22 00:26 11/03/22 00:26 Lab Results 11/03/22 11/03/22 11/03/22 Range/Units 00:26 00:26 00:26 WBC 6.10 (4.8-10.8) K/ul RBC 4.43 (4.20-5.40) M/uL Hgb 13.2 (12.0-16.0) g/dl POC Hgb (12.0-16.0) g/dl Hct 39.2 (37.0-47.0) % POC Hct (37-47) % MCV 88.5 (80.0-100.0) fL MCH 29.8 (25.0-34.0) pg MCHC 33.7 (32.0-36.0) g/dL RDW Std Deviation 51.0 H (36.4-46.3) fL RDW Coeff of Meg 15.8 H (11.5-14.5) % Plt Count 43 L (130-400) K/uL Immature Gran % (Auto) 0.2 % Neut % (Auto) 86.3 % Lymph % (Auto) 6.4 % [place] % (Auto) 5.7 % Eos % (Auto) 1.1 % Baso % (Auto) 0.3 % Neut # (Auto) 5.26 (1.40-6.50) K/uL Lymph # (Auto) 0.39 L (1.2-3.4) K/uL [place] # (Auto) 0.35 (0.11-0.59) K/uL Eos # (Auto) 0.07 (0-0.50) K/uL Baso # (Auto) 0.02 (0-0.2) K/uL Immature Gran # (Auto) 0.01 (0.01-0.20) K/uL Platelet Estimate Decreased L (Normal) PT 21.2 H (9.0-12.0) Seconds INR 2.0 H (0.9-1.1) APTT 32.5 H (21.0-31.0) Seconds PTT Ratio 1.2 VBG pH (7.36-7.41) VBG pCO2 (38-50) mmHg VBG pO2 mmHg VBG HCO3 mmol/L VBG O2 Saturation % VBG Base Excess mEq/L POC Sodium (135-144) mmol/L Sodium 135 L (136-145) mmol/L POC Potassium (3.3-5.0) mmol/L Potassium 3.5 (3.5-5.1) mmol/L POC Chloride (101-112) mmol/L Chloride 103 (98-107) mmol/L Carbon Dioxide 25 (21-32) mmol/L POC Total CO2 (24-31) mmol/L Anion Gap 7 (3-11) POC Anion Gap (16-25) mmol/L POC BUN (7-18) mg/dl BUN 13 (6-23) mg/dl Creatinine 0.50 L (0.6-1.2) mg/dl POC Creatinine (0.6-1.3) mg/dl Est Cr Clr Drug Dosing 152.4 ml/min Est GFR ( Amer) 120.2 ml/min Est GFR (Non-Af Amer) 103.7 ml/min BUN/Creatinine Ratio 26.0 H (10-20) Glucose 259 H (70-99(Fasting)) mg/dl POC Glucose (other) (70-99) mg/dl Lactate (0.4-2.0) mmol/L Calcium 8.6 (8.6-10.3) mg/dl POC Ioniz Calcium Jemma (1.12-1.32) mmol/l Magnesium 1.8 (1.7-2.4) mg/dl Total Bilirubin 1.0 (0.2-1.0) mg/dl Direct Bilirubin 0.2 (0-0.2) mg/dl AST 33 (13-39) U/L ALT 24 (7-52) U/L Alkaline Phosphatase 74 (34-104) U/L Troponin I High Sens 9.7 (0-14) pg/ml Total Protein 7.0 (6.0-8.3) gm/dl Albumin 3.4 (3.4-5.0) gm/dl Lipase 74 (11-82) U/L Procalcitonin (0-0.5) ng/ml Adenovirus (PCR) (NotDetected) B. pertussis DNA (PCR) (NotDetected) B.parapertussis DNA PCR (NotDetected) C. pneumoniae DNA (PCR) (NotDetected) Coronavirus OC43 (PCR) (NotDetected) Coronavirus HKU1 (PCR) (NotDetected) Coronavirus 229E (PCR) (NotDetected) SARS-CoV-2 (PCR) (NotDetected) Coronavirus NL63 (PCR) (NotDetected) Human Metapneumovir PCR (NotDetected) Influenza Type A (PCR) (NotDetected) Influenza Type B (PCR) (NotDetected) M. pneumoniae (PCR) (NotDetected) Parainfluenza 1 (PCR) (NotDetected) Parainfluenza 2 (PCR) (NotDetected) Parainfluenza 3 (PCR) (NotDetected) Parainfluenza 4 (PCR) (NotDetected) RSV (PCR) (NotDetected) Entero/Rhino (PCR) (NotDetected) 11/03/22 11/03/22 11/03/22 Range/Units 00:26 00:26 00:26 WBC (4.8-10.8) K/ul RBC (4.20-5.40) M/uL Hgb (12.0-16.0) g/dl POC Hgb (12.0-16.0) g/dl Hct (37.0-47.0) % POC Hct (37-47) % MCV (80.0-100.0) fL MCH (25.0-34.0) pg MCHC (32.0-36.0) g/dL RDW Std Deviation (36.4-46.3) fL RDW Coeff of Meg (11.5-14.5) % Plt Count (130-400) K/uL Immature Gran % (Auto) % Neut % (Auto) % Lymph % (Auto) % [place] % (Auto) % Eos % (Auto) % Baso % (Auto) % Neut # (Auto) (1.40-6.50) K/uL Lymph # (Auto) (1.2-3.4) K/uL [place] # (Auto) (0.11-0.59) K/uL Eos # (Auto) (0-0.50) K/uL Baso # (Auto) (0-0.2) K/uL Immature Gran # (Auto) (0.01-0.20) K/uL Platelet Estimate (Normal) PT (9.0-12.0) Seconds INR (0.9-1.1) APTT (21.0-31.0) Seconds PTT Ratio VBG pH 7.48 H (7.36-7.41) VBG pCO2 33 L (38-50) mmHg VBG pO2 59 mmHg VBG HCO3 25 mmol/L VBG O2 Saturation 92.2 % VBG Base Excess 1.6 mEq/L POC Sodium (135-144) mmol/L Sodium (136-145) mmol/L POC Potassium (3.3-5.0) mmol/L Potassium (3.5-5.1) mmol/L POC Chloride (101-112) mmol/L Chloride (98-107) mmol/L Carbon Dioxide (21-32) mmol/L POC Total CO2 (24-31) mmol/L Anion Gap (3-11) POC Anion Gap (16-25) mmol/L POC BUN (7-18) mg/dl BUN (6-23) mg/dl Creatinine (0.6-1.2) mg/dl POC Creatinine (0.6-1.3) mg/dl Est Cr Clr Drug Dosing ml/min Est GFR ( Amer) ml/min Est GFR (Non-Af Amer) ml/min BUN/Creatinine Ratio (10-20) Glucose (70-99(Fasting)) mg/dl POC Glucose (other) (70-99) mg/dl Lactate 1.8 (0.4-2.0) mmol/L Calcium (8.6-10.3) mg/dl POC Ioniz Calcium Jemma (1.12-1.32) mmol/l Magnesium (1.7-2.4) mg/dl Total Bilirubin (0.2-1.0) mg/dl Direct Bilirubin (0-0.2) mg/dl AST (13-39) U/L ALT (7-52) U/L Alkaline Phosphatase (34-104) U/L Troponin I High Sens (0-14) pg/ml Total Protein (6.0-8.3) gm/dl Albumin (3.4-5.0) gm/dl Lipase (11-82) U/L Procalcitonin 0.07 (0-0.5) ng/ml Adenovirus (PCR) (NotDetected) B. pertussis DNA (PCR) (NotDetected) B.parapertussis DNA PCR (NotDetected) C. pneumoniae DNA (PCR) (NotDetected) Coronavirus OC43 (PCR) (NotDetected) Coronavirus HKU1 (PCR) (NotDetected) Coronavirus 229E (PCR) (NotDetected) SARS-CoV-2 (PCR) (NotDetected) Coronavirus NL63 (PCR) (NotDetected) Human Metapneumovir PCR (NotDetected) Influenza Type A (PCR) (NotDetected) Influenza Type B (PCR) (NotDetected) M. pneumoniae (PCR) (NotDetected) Parainfluenza 1 (PCR) (NotDetected) Parainfluenza 2 (PCR) (NotDetected) Parainfluenza 3 (PCR) (NotDetected) Parainfluenza 4 (PCR) (NotDetected) RSV (PCR) (NotDetected) Entero/Rhino (PCR) (NotDetected) 11/03/22 11/03/22 Range/Units 00:29 01:02 WBC (4.8-10.8) K/ul RBC (4.20-5.40) M/uL Hgb (12.0-16.0) g/dl POC Hgb 13.9 (12.0-16.0) g/dl Hct (37.0-47.0) % POC Hct 41 (37-47) % MCV (80.0-100.0) fL MCH (25.0-34.0) pg MCHC (32.0-36.0) g/dL RDW Std Deviation (36.4-46.3) fL RDW Coeff of Meg (11.5-14.5) % Plt Count (130-400) K/uL Immature Gran % (Auto) % Neut % (Auto) % Lymph % (Auto) % [place] % (Auto) % Eos % (Auto) % Baso % (Auto) % Neut # (Auto) (1.40-6.50) K/uL Lymph # (Auto) (1.2-3.4) K/uL [place] # (Auto) (0.11-0.59) K/uL Eos # (Auto) (0-0.50) K/uL Baso # (Auto) (0-0.2) K/uL Immature Gran # (Auto) (0.01-0.20) K/uL Platelet Estimate (Normal) PT (9.0-12.0) Seconds INR (0.9-1.1) APTT (21.0-31.0) Seconds PTT Ratio VBG pH (7.36-7.41) VBG pCO2 (38-50) mmHg VBG pO2 mmHg VBG HCO3 mmol/L VBG O2 Saturation % VBG Base Excess mEq/L POC Sodium 138 (135-144) mmol/L Sodium (136-145) mmol/L POC Potassium 3.5 (3.3-5.0) mmol/L Potassium (3.5-5.1) mmol/L POC Chloride 102 (101-112) mmol/L Chloride (98-107) mmol/L Carbon Dioxide (21-32) mmol/L POC Total CO2 22 L (24-31) mmol/L Anion Gap (3-11) POC Anion Gap 19.0 (16-25) mmol/L POC BUN 12 (7-18) mg/dl BUN (6-23) mg/dl Creatinine (0.6-1.2) mg/dl POC Creatinine 0.4 L (0.6-1.3) mg/dl Est Cr Clr Drug Dosing ml/min Est GFR ( Amer) ml/min Est GFR (Non-Af Amer) ml/min BUN/Creatinine Ratio (10-20) Glucose (70-99(Fasting)) mg/dl POC Glucose (other) 271 H (70-99) mg/dl Lactate (0.4-2.0) mmol/L Calcium (8.6-10.3) mg/dl POC Ioniz Calcium Jemma 1.12 (1.12-1.32) mmol/l Magnesium (1.7-2.4) mg/dl Total Bilirubin (0.2-1.0) mg/dl Direct Bilirubin (0-0.2) mg/dl AST (13-39) U/L ALT (7-52) U/L Alkaline Phosphatase (34-104) U/L Troponin I High Sens (0-14) pg/ml Total Protein (6.0-8.3) gm/dl Albumin (3.4-5.0) gm/dl Lipase (11-82) U/L Procalcitonin (0-0.5) ng/ml Adenovirus (PCR) Not Detected (NotDetected) B. pertussis DNA (PCR) Not Detected (NotDetected) B.parapertussis DNA PCR Not Detected (NotDetected) C. pneumoniae DNA (PCR) Not Detected (NotDetected) Coronavirus OC43 (PCR) Not Detected (NotDetected) Coronavirus HKU1 (PCR) Not Detected (NotDetected) Coronavirus 229E (PCR) Not Detected (NotDetected) SARS-CoV-2 (PCR) Not Detected (NotDetected) Coronavirus NL63 (PCR) Not Detected (NotDetected) Human Metapneumovir PCR Not Detected (NotDetected) Influenza Type A (PCR) Not Detected (NotDetected) Influenza Type B (PCR) Not Detected (NotDetected) M. pneumoniae (PCR) Not Detected (NotDetected) Parainfluenza 1 (PCR) Not Detected (NotDetected) Parainfluenza 2 (PCR) Not Detected (NotDetected) Parainfluenza 3 (PCR) Not Detected (NotDetected) Parainfluenza 4 (PCR) Not Detected (NotDetected) RSV (PCR) Not Detected (NotDetected) Entero/Rhino (PCR) Not Detected (NotDetected) Imaging Data Attestation: I personally reviewed and interpreted this imaging study as follows: Radiologist's Impression: Abdomen/Pelvis CT 11/02/22 23:54 Exam(s): CT ABDOMEN + PELVIS With Contrast IV Amt: 93ml OPTIRAY 320 EXAM: CT Abdomen and Pelvis With Intravenous Contrast CLINICAL HISTORY: Reason for exam: fever, abd pain, cirr.. TECHNIQUE: Axial computed tomography images of the abdomen and pelvis with intravenous contrast. CTDI is 27.64 mGy and DLP is 1411.5 mGy-cm. Automated exposure control was utilized for the study. A dose lowering technique was utilized adhering to the principles of ALARA. CONTRAST: Patient received 93ml OPTIRAY 320 of IV contrast COMPARISON: 03/30/2020 FINDINGS: Lung bases: Unremarkable. No mass. No consolidation. ABDOMEN: Liver: Hepatic cirrhosis with portal hypertension with esophageal and gastric varices are recanalization of the umbilical vein. Gallbladder and bile ducts: Unremarkable. No calcified stones. No ductal dilation. Pancreas: Inflammatory changes about the pancreatic head which is enlarged. No peripancreatic fluid collection. Spleen: Splenomegaly. Adrenals: Unremarkable. No mass. Kidneys and ureters: Unremarkable. No solid mass. No hydronephrosis. Stomach and bowel: Midline anterior bowel wall hernia containing only fluid. No obstruction. No mucosal thickening. PELVIS: Appendix: No findings to suggest acute appendicitis. Bladder: Unremarkable. No mass. Reproductive: Unremarkable as visualized. ABDOMEN and PELVIS: Intraperitoneal space: Mild intra-abdominal volume of abdominal and pelvic ascites. No free air. Bones/joints: No acute fracture. No dislocation. Soft tissues: See above. Vasculature: See above. Lymph nodes: Unremarkable. No enlarged lymph nodes. IMPRESSION: 1. Hepatic cirrhosis 2. Acute pancreatitis without pancreatic pseudocyst 3. Intra-abdominal ascites likely reactive in nature 4. Hepatic cirrhosis with portal hypertension. Electronically signed by: Frank Redmond MD 11/03/22 01:37 AM [facility] Narrative Prior records/ancillary studies reviewed. Triage Nursing notes reviewed. Additional history obtained from family The patient's history was concerning for fever. Differential diagnosis: Etiologies such as intra-abdominal, spontaneous bacterial peritonitis, viral syndrome, otitis, pharyngitis, pneumonia, influenza, meningitis, urinary tract infection, sepsis, bacteremia, as well as others were entertained. Physical examination: As above ER treatment provided: An order was placed for continuous cardiac monitoring. The monitor shows a rate of 60-1 30 with a sinus rhythm per my interpretation. IV fluids per septic protocol Zosyn was ordered and patient was also given Zofran On reassessment the patient felt better. Diagnostics interpreted by me: ECG: Ordered for sepsis EKG: Normal sinus, normal intervals, no acute ST-T wave changes. Impression normal sinus rhythm independent abdominal self I think arrhythmia is unlikely. EKG shows normal sinus rhythm with no interval abnormalities such as QT prolongation or WPW. There are no findings to suggest Brugada syndrome. Cardiac monitoring in the emergency department reveals no tach ycardic or bradycardic dysrhythmia. Hypertrophic cardiomyopathy was considered but there are no clear historical elements pointing toward this. EKG is not suggestive. The QRS voltage is not extremely large and there are no suggestive Q waves. The labs Independently Interpreted by myself revealed no worrisome leukocytosis, negative lactic, normal lipase Blood cultures pending Hyperglycemia without DKA. Negative [employer] Imaging studies: CT of the abdomen pelvis concerning for acute pancreatitis per my independent review and per radiology Chest x-ray with no acute consolidation, pneumothorax or free air per my independent interpretation Consultation: A consultation was placed with hospitalist. The case was discussed and diagnostics were reviewed. The patient was evaluated in the ER for further treatment. This appears to be consistent with pancreatitis with fever. Patient started on antibiotics upon initial evaluation as she was ill-appearing. No pneumonia on x-ray. CAT scan concerning for pancreatitis. Lipase is normal. No worrisome leukocytosis. Negative lactic. Medicine was consulted and the case was discussed. Patient be admitted to the medical service. Patient is agreeable. By the evaluation outlined above emergent etiologies such as otitis, pharyngitis, pneumonia, meningitis, as well as others were deemed relatively unlikely. The pt informed about the findings as listed above. All questions were answered and pleased with the treatment. The chart was completed utilizing E-Sign Speech voice recognition software. Grammatical errors, random word insertions, pronoun errors, and incomplete sentences are an occassional consequence of this system due to software limitations, ambient noise, and hardware issues. Any formal questions or concer ns about the content, text, or information contained within the body of this dictation should be directly addressed to the physician bindery assistant for clarification. Impression & Plan Acute pancreatitis, Fever Discharge Plan Visit Data Chief Complaint: Illness Stated Complaint: FEVER 102,NAUSEA,WEAKNESS ED Provider: Madeleine Glover ED Midlevel Provider: Maria De Jesus Lyn Discharge Problem: Acute pancreatitis, Fever Patient Disposition: Admitted As Inpatient Condition: Fair Forms Stand Alone Forms: My [facility] NPS Prescriptions Prescriptions: No Action warfarin 5 mg tablet See Rx Instructions PO UD Qty: 140 1RF Rx Instructions: 7.5 mg q evening per [facility] orally use as directed polyethylene glycol 3350 [Miralax] 17 gram Powder In Packet 17 g PO BID PRN (Reason: constipation) Qty: 60 0RF furosemide 40 mg tablet 40 mg PO DAILY spironolactone 100 mg Tablet 100 mg PO QAM Jardiance 10 mg Tablet 10 mg PO DIRECTED PRN (Reason: IF BSG >200) oxycodone 5 mg Tablet 5 mg PO Q8H PRN (Reason: moderate-severe pain) Qty: 6 0RF pantoprazole 40 mg Tablet,Delayed Release (Dr/Ec) 40 mg PO QAM Qty: 14 0RF Referrals Referrals: PCP,NO [Primary Care Provider] - Acute pancreatitis Qualifiers: Pancreatitis type: unspecified pancreatitis type Acute pancreatitis complication: unspecified Qualified Code(s): K85.90 - Acute pancreatitis without necrosis or infection, unspecified
[2022-11-03 00:43] LABS: Base Excess VBG 1.6 mEq/L; HCO3 VBG 25 mmol/L; Oxygen Saturation VBG 92.2 %; PCO2 VBG 33 mmHg (38-50); PO2 VBG 59 mmHg; pH VBG 7.48 (7.36-7.41)
[2022-11-03 00:44] LABS: iSTAT Creatinine 0.4 mg/dl (0.6-1.3); iSTAT Hemoglobin 13.9 g/dl (12.0-16.0); iSTAT Ionized Calcium 1.12 mmol/l (1.12-1.32); iSTAT Potassium 3.5 mmol/L (3.3-5.0)
[2022-11-03] MEDS: SODIUM CHLORIDE 0.9% 1000ML 1,000 ML IV SCH ×2 (00:51→06:25)
[2022-11-03] MEDS ORDERED: OPTIRAY 320 100ml IV ONE (00:56)
[2022-11-03 01:03] LABS: Albumin Level 3.4 gm/dl (3.4-5.0); Bilirubin Direct 0.2 mg/dl (0-0.2); Calcium 8.6 mg/dl (8.6-10.3); Creatinine Clr Calc Pharmacy 152.4 ml/min; Est GFR (African American) 120.2 ml/min; Est GFR (Non-African American) 103.7 ml/min; Magnesium 1.8 mg/dl (1.7-2.4); Potassium 3.5 mmol/L (3.5-5.1)
[2022-11-03 01:10] LABS: Troponin I High Sensitivity 9.7 pg/ml (0-14)
[2022-11-03 01:11] LABS: Partial Thromboplastin Ratio 1.2; Partial Thromboplastin Time 32.5 Seconds (21.0-31.0); Prothrombin Time 21.2 Seconds (9.0-12.0)
[2022-11-03 01:20] LABS: Basophils # (auto) 0.02 K/uL (0-0.2); Basophils % (auto) 0.3 %; Eosinophils # (auto) 0.07 K/uL (0-0.50); Eosinophils % (auto) 1.1 %; Hematocrit (blood only) 39.2 % (37.0-47.0); Hemoglobin 13.2 g/dl (12.0-16.0); Immature Granulocytes # (auto) 0.01 K/uL (0.01-0.20); Immature Granulocytes % (auto) 0.2 %; Lymphocytes # (auto) 0.39 K/uL (1.2-3.4); Lymphocytes % (auto) 6.4 %; Mean Corpuscular Hemoglobin 29.8 pg (25.0-34.0); Mean Corpuscular Hgb Conc 33.7 g/dL (32.0-36.0); Mean Corpuscular Volume 88.5 fL (80.0-100.0); Monocytes # (auto) 0.35 K/uL (0.11-0.59); Monocytes % (auto) 5.7 %; Neutrophils # (auto) 5.26 K/uL (1.40-6.50); Neutrophils % (auto) 86.3 %; Platelet Count 43 K/uL (130-400); Platelet Estimate Decreased (Normal); RDW Coefficient of Variation 15.8 % (11.5-14.5); Red Blood Count 4.43 M/uL (4.20-5.40)
--- NOTE | 2022-11-03 01:38 | CT Scan Report ---
Exam(s): CT ABDOMEN + PELVIS With Contrast IV Amt: 93ml OPTIRAY 320 EXAM: CT Abdomen and Pelvis With Intravenous Contrast CLINICAL HISTORY: Reason for exam: fever, abd pain, cirr.. TECHNIQUE: Axial computed tomography images of the abdomen and pelvis with intravenous contrast. CTDI is 27.64 mGy and DLP is 1411.5 mGy-cm. Automated exposure control was utilized for the study. A dose lowering technique was utilized adhering to the principles of ALARA. CONTRAST: Patient received 93ml OPTIRAY 320 of IV contrast COMPARISON: 03/30/2020 FINDINGS: Lung bases: Unremarkable. No mass. No consolidation. ABDOMEN: Liver: Hepatic cirrhosis with portal hypertension with esophageal and gastric varices are recanalization of the umbilical vein. Gallbladder and bile ducts: Unremarkable. No calcified stones. No ductal dilation. Pancreas: Inflammatory changes about the pancreatic head which is enlarged. No peripancreatic fluid collection. Spleen: Splenomegaly. Adrenals: Unremarkable. No mass. Kidneys and ureters: Unremarkable. No solid mass. No hydronephrosis. Stomach and bowel: Midline anterior bowel wall hernia containing only fluid. No obstruction. No mucosal thickening. PELVIS: Appendix: No findings to suggest acute appendicitis. Bladder: Unremarkable. No mass. Reproductive: Unremarkable as visualized. ABDOMEN and PELVIS: Intraperitoneal space: Mild intra-abdominal volume of abdominal and pelvic ascites. No free air. Bones/joints: No acute fracture. No dislocation. Soft tissues: See above. Vasculature: See above. Lymph nodes: Unremarkable. No enlarged lymph nodes. IMPRESSION: 1. Hepatic cirrhosis 2. Acute pancreatitis without pancreatic pseudocyst 3. Intra-abdominal ascites likely reactive in nature 4. Hepatic cirrhosis with portal hypertension. Electronically signed by: Frank Redmond MD 11/03/22 01:37 AM
[2022-11-03 02:05] LABS: Adenovirus PCR Not Detected (NotDetected); Bordetella parapertussis PCR Not Detected (NotDetected); Bordetella pertussis PCR Not Detected (NotDetected); Chlamydia pneumoniae PCR Not Detected (NotDetected); Coronavirus 229E PCR Not Detected (NotDetected); Coronavirus CoV-2 (COVID19)PCR Not Detected (NotDetected); Coronavirus HKU1 PCR Not Detected (NotDetected); Coronavirus NL63 PCR Not Detected (NotDetected); Coronavirus OC43PCR Not Detected (NotDetected); Human Metapneumovirus PCR Not Detected (NotDetected); Influenza A PCR Not Detected (NotDetected); Influenza B PCR Not Detected (NotDetected); Mycoplasma pneumoniae PCR Not Detected (NotDetected); Parainfluenza Virus 1 PCR Not Detected (NotDetected); Parainfluenza Virus 2 PCR Not Detected (NotDetected); Parainfluenza Virus 3 PCR Not Detected (NotDetected); Parainfluenza Virus 4 PCR Not Detected (NotDetected); Respiratory Syncytial VirusPCR Not Detected (NotDetected); Rhinovirus/Enterovirus PCR Not Detected (NotDetected)
[2022-11-03] MEDS ORDERED: HYDROmorphone INJ 0.5 MG/0.5 ML SYR IV PRN ×2 (04:45)
--- NOTE | 2022-11-03 04:50 | History & Physical Report ---
Date of Service November 03, 2022 Assessment & Plan (1) Acute pancreatitis: Plan: 61 F with PMH of hepatitis C-associated cirrhosis, portal vein thrombosis, DM2 on Jardiance, who presents today with acute epigastric abdominal pain and found to have acute pancreatitis on CT imaging. Now admitted for further evaluation management. Pancreatitis -Acute. No prior occurrence. BISAP score of 1 (age >60). -CT A/P: Acute pancreatitis without pancreatic pseudocyst. Intra-abdominal ascites likely reactive in nature. -Lactate within normal limits, alk phos within normal limits, AST/ALT also within normal limits. -S/p IV Zosyn, IV Tylenol 1000 mg, 1 L normal saline bolus in the ED. * Admitted to [facility] with telemetry. * Made n.p.o. (except for meds). * mIVFlactated Ringer@125 mL/h * Pain control regimenIV Tylenol 1000 mg every 8 hours as needed, as needed IV Dilaudid 0.5 mg, 0.25 mg every 3 hours each as needed. * Consider early oral feeding as tolerated * Lipid profile pending * Trend CMP daily. * Repeat lipase trending Diabetes mellitus, [id number] -Chronic. Managed at home on Jardiance. -Serum glucose on admission 259. -Last measured hemoglobin A1c 9.2 in June 2022. * Jardiance held on admission. * Hemoglobin A1c pending * Sliding scale insulin per protocol Hepatitis C/cirrhosis of liver/portal vein thrombosis -Chronic. Diagnosed in [place] in 2019 while on vacation. -Initially treated, though patient cannot recall (not on any medical therapy at this time). -Portal vein thrombosis diagnosed in 2020; managed on warfarin. -Intra-abdominal ascites seen on CT A/P, though noted to be likely reactive in nature. -Hepatic cirrhosis with portal hypertension also noted on CT A/P. * Continue home warfarin * Trend daily CBC Code: Full code Dispo: Med-Surg telemetry FEN/GI: NPO. LR @maintenance rate DVT Prophylaxis: Home warfarin PT/OT: No Consults: None Case Management: No (2) Diabetes: (3) Cirrhosis of liver: (4) Hepatitis C: (5) Portal vein thrombosis: History of Present Illness Primary Care Provider: NO PCP Inessa is a 62-year-old Austrian-speaking woman (interview conducted through medical chief technician iPad) with a history of hepatitis C with cirrhosis of the liver and portal vein thrombosis (on Coumadin), DM2, GERD, who presented to the emergency room with a complaint of fever, chills, and upper abdominal pain since 8 PM. Patient checked her temperature at home and it was 102 F at its peak. Son was concerned so he brought his mom in. She denies headache, chest pain, vomiting, constipation, or diarrhea. On admission, vitals notable for tachycardia to the 110s and a pulse ox reading of 93% on room air. Labs revealed PT of 21.2, INR of 2.0, which is her baseline, and PTT of 32.5. She had no leukocytosis or anemia. LFTs and alk phos were all within normal limits, as was lipase, which was normal. Rapid respiratory PCR was uniformly negative. CT A/P revealed acute pancreatitis without pancreatic pseudocyst. She received a 1 L normal saline bolus, and hospitalist service was consulted for admission. On admission, she corroborates HPI, though she admits her abdominal pain is much improved at this time. She also adds that her symptoms began at 8 PM after eating a meal of sausage, cheese, and tea at a friend's house. She admits her abdomen is more distended than usual. She also admits to back pain, though she denies radiation from presenting abdominal pain. She continues to deny headache, chest pain, shortness of breath, vomiting, or diarrhea. She further denies alcohol consumption. Allergies Allergy/AdvReac Type Severity Reaction Status Date / Time menthol Allergy Severe Anaphylaxis Verified 08/03/22 18:49 mint Allergy Severe Anaphylaxis Verified 08/03/22 18:49 Home Medications Medication Instructions Recorded Confirmed Type polyethylene glycol 3350 17 gram 17 g PO BID PRN constipation #60 ea 04/02/20 10/16/22 Rx oral powder packet (Miralax) furosemide 40 mg tablet 40 mg PO DAILY 10/03/20 10/16/22 History empagliflozin 10 mg tablet 10 mg PO DIRECTED PRN IF BSG 05/27/22 10/16/22 History (Jardiance) >200 spironolactone 100 mg tablet 100 mg PO QAM 05/27/22 10/16/22 History warfarin 5 mg tablet See Rx Instructions PO UD #140 tabs 07/08/22 10/16/22 Rx oxycodone 5 mg tablet 5 mg PO Q8H PRN moderate-severe 08/06/22 10/16/22 Rx pain #6 tabs pantoprazole 40 mg tablet,delayed 40 mg PO QAM #14 tabs 08/06/22 10/16/22 Rx release Past Med/Surg History Medical History Ascites Cirrhosis of liver Diabetes NIDDM Edema bilateral legs, comes and goes. Epigastric pain Hepatitis C dx in [place] in 2019 during a vacation - son states patient did have treatment in the past unsure if it was October 2020 or October 2021. History of abdominal paracentesis Hypothyroidism hx of taking levothyroxine in November 2021 -- no longer takes. Lyme disease August 2020 - treated no current issues Partial small bowel obstruction son unaware of details Portal vein thrombosis (dx in 2020) currently on warfarin. Sepsis hx in 2020. UTI (urinary tract infection) hx Venous stasis dermatitis of both lower extremities Surgical History H/O umbilical hernia repair 01/2020 in [place] Family History Mother Gastric cancer Father Stroke Social History Smoking Status: Never smoker Second Hand Exposure: No; Do You Dip or Chew Tobacco: No; Hx Alcohol Use: No Hx Substance Use: No Preferred Language: Austrian Communication Ability: Effective Communication Ability Comment: wheel polisher Communication Tools: IPad Roving Marker Required: Yes Beliefs That Will Affect Care: None marital status: Single marital status details: from ; he lives in [facility]; he has HepC Current Living Situation: Family Current Living Situation Comment: lives with son in an apartment current occupational status: retired How many Children do You have: 2 Other Information That Helps Us Care for You: No other: 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 Normal conjunctiva, anicteric sclera. Oropharynx normal. Respiratory: Normal respiratory effort, CTABL. Cardiovascular: RRR without murmurs, gallops, or rubs. No pedal edema. GI: Soft, distended abdomen on visual inspection. TTP at epigastrium, LUQ. Neuro: Alert and oriented x3. Results & Data Results & Data Vital Signs (Past 12 Hours) Vital Signs Temp Pulse Resp BP Pulse Ox O2 Del Method 11/03/22 01:35 94 H 11/03/22 01:36 98 H 19 110/67 92 11/03/22 01:13 95 H 18 91 Room Air 11/02/22 23:39 37.5 C 110 H 18 129/75 93 Room Air Supervising Physician Co-Signing Physician Notes Patient seen and examined, chart reviewed, case discussed with Dr. Pompa and I agree with the assessment and plan as above. History obtained with assistance of Austrian wheel polisher. Patient reports severe abdominal pain. Found to have acute pancreatitis. Received Zosyn x 1 dose in the ER as well as IVF and Tylenol On exam she is resting comfortably, NAD Skin - intact, no rash or lesions HEENT - MMM, Neck supple Heart - +S1/S2, regular, no m/r/g Lungs - CTA Abd - +BS, soft, tender in epigastric and LUQ, no rebound/guarding Ext - warm, well perfused Labs and images reviewed Liver labs are stable Assessment/plan - 61yo female presenting with acute pancreatitis. Etiology unclear - no EtOH or gallstones. Possibly medication induced - patient on Jardiance -NPO, IVF -Pain control -Anti-emetics -Remainder as above Pain control CT with acute pancreatitis without pseudocyst Resident Activity Tracking Resident Involvement: Resident Care Provided Care Provided: Adult Hospital Medicine (1) Acute pancreatitis Acute pancreatitis complication: unspecified Pancreatitis type: unspecified pancreatitis type Qualified Code(s): K85.90 - Acute pancreatitis without necrosis or infection, unspecified (3) Cirrhosis of liver Ascites presence: with ascites Hepatic cirrhosis type: unspecified hepatic cirrhosis Qualified Code(s): K74.60 - Unspecified cirrhosis of liver; R18.8 - Other ascites (4) Hepatitis C Hepatic coma status: without hepatic coma Viral hepatitis chronicity: chronic Qualified Code(s): B18.2 - Chronic viral hepatitis C
[2022-11-03] MEDS ORDERED: ACETAMINOPHEN 1,000 MG/100 ML VIAL IV PRN (05:40)
[2022-11-03] MEDS ORDERED: GLUCOSE 10 TAB/TUBE PO PRN (05:46)
[2022-11-03] MEDS ORDERED: GLUCAGON FOR INJ 1 MG VIAL SQ PRN (05:46)
[2022-11-03] MEDS ORDERED: GLUCOSE 40% GEL 15 GM TUBE PO PRN (05:46)
[2022-11-03] MEDS ORDERED: DEXTROSE 50% 50 ML SYRINGE IV PRN (05:46)
[2022-11-03] MEDS ORDERED: CARBOHYDRATES FOR HYPOGLYCEMIA PO PRN (05:46)
[2022-11-03] MEDS: LACTATED RINGER'S 1,000 ML IV SCH ×2 (06:35→18:14)
[2022-11-03 06:39] LABS: Hematocrit (blood only) 37.4 % (37.0-47.0); Hemoglobin 12.8 g/dl (12.0-16.0); Mean Corpuscular Hemoglobin 30.5 pg (25.0-34.0); Mean Corpuscular Hgb Conc 34.2 g/dL (32.0-36.0); Platelet Count 40 K/uL (130-400); RDW Coefficient of Variation 15.8 % (11.5-14.5); RDW Standard Deviation 51.3 fL (36.4-46.3); White Blood Count 7.07 K/ul (4.8-10.8)
[2022-11-03 06:43] LABS: Albumin Globulin Ratio 0.9 (0.9-2); BUN Creatinine Ratio 28.3 (10-20); Bilirubin,Total 1.5 mg/dl (0.2-1.0); Calcium 8.1 mg/dl (8.6-10.3); Chol HDL Ratio 3.1 (0-5); Creatinine Clr Calc Pharmacy 165.6 ml/min; Est GFR (African American) 123.6 ml/min; Est GFR (Non-African American) 106.6 ml/min; Globulin 3.4 gm/dl (2.5-4.0); Magnesium 1.8 mg/dl (1.7-2.4); Potassium 3.5 mmol/L (3.5-5.1); Total Protein 6.4 gm/dl (6.0-8.3)
[2022-11-03 07:22] LABS: Appearance Urine Clear (Clear); Bilirubin Urine Negative (Negative); Blood Urine Negative (Negative); Color Urine Yellow; Glucose Urine UA 3+ (Negative); Ketones Urine Trace (Negative); Leukocyte Esterase Urine Negative (Negative); Nitrite Urine Negative (Negative); Protein Urine Negative (Negative); Specific Gravity Urine > 1.045 (1.000-1.030); Urobilinogen Urine Negative (Negative)
--- NOTE | 2022-11-03 07:40 | Hospitalist Progress Note ---
Date of Service November 03, 2022 Assessment & Plan (1) Acute pancreatitis: Plan: Pt is a 60 yo female with a past medical history of DMT2 on jaurdiance, hepatitis C associated liver cirrhosis, and portal vein thrombosis who presents to the hospital on 11/03/22 for 1 day abdominal pain, nausea, and fevers, found to have acute pancreatitis. #Bacteremia - source unknown, - received zosyn in ER - blood culture + for gram+ cocci in chains, awaiting specificity - PCR positive for strep agalactiae - continue supportive care and close monitoring - started rocephin 2 g IV daily today Acute Pancreatitis - No prior occurrence, BISAP score of 1 (age >60). - CT A/P: Acute pancreatitis without pancreatic pseudocyst. Intra-abdominal ascites likely reactive in nature. - Lactate within normal limits, alk phos within normal limits, AST/ALT also within normal limits. - S/p IV Zosyn, IV Tylenol 1000 mg, 1 L normal saline bolus in the ED. * Admitted to [facility] with telemetry. * Pain control regimenIV Tylenol 1000 mg every 8 hours as needed, as needed IV Dilaudid 0.5 mg, 0.25 mg every 3 hours each as needed. * Lipid profile wnl * Lipase wnl, 74 then 56 - continue mIVFlactated Ringer@125 mL/hr - will advance diet to full liquids today and see how she tolerates it - added 2mg morphine prn q4h to her meds for severe pain control - will have PT see her prior to discharge, consult placed today Diabetes mellitus, [id number] -Chronic. Managed at home on Jardiance. -Serum glucose on admission 259. -Last measured hemoglobin A1c 9.2 in June 2022. * Jardiance held on admission. * Hemoglobin A1c pending * Sliding scale insulin per protocol Hepatitis C/cirrhosis of liver/portal vein thrombosis -Chronic. Diagnosed in [place] in 2019 while on vacation. -Initially treated, though patient cannot recall (not on any medical therapy at this time). -Portal vein thrombosis diagnosed in 2020; managed on warfarin. -Intra-abdominal ascites seen on CT A/P, though noted to be likely reactive in nature. -Hepatic cirrhosis with portal hypertension also noted on CT A/P. * Continue home warfarin * Trend daily CBC * INR 2.0 today Code: Full code Dispo: Med-Surg telemetry DVT Prophylaxis: Home warfarin Consults: None Case Management: No (2) Diabetes: (3) Cirrhosis of liver: (4) Hepatitis C: (5) Portal vein thrombosis: Admission and Anticipated Discharge Date Admission Date: November 03, 2022 Supervising Physician Co-Signing Physician Notes I personally examined the patient and verified garcia points of history and exam, discussed case, and agree with decision making and plan documented by Dr. Diallo. Guyanese refrigerator repairman [id number] used throughout exam. Patient states for a few days she has been feeling ill, fever, chills, diffuse abdominal pain, decreased appetite, and body aches. Denied any nausea, vomiting or diarrhea, no urinary complaints, no skin rashes or breaks, denies coughing wheezing shortness of breath or chest pain. Patient states that her friend had a "flu virus" last week and she was in contact with this person. Streptococcus sp/agalactiae on PCR and positive blood cultures (gram + cocci chains) today, source unclear, ceftriaxone IV initiated, patient received Zosyn in the ED, team discussed with pharmacy. Called lab and ordered urine culture (was collected in ED). Echocardiogram ordered. On exam patient lying in bed, non diaphoretic, conjunctiva clear, mucosa moist, non-labored breathing, lungs clear to auscultation bilaterally, no rales/rhonchi/wheezing, heart with regular rate and rhythm, no murmur appreciated, bowel sounds present and tenderness to deep palpation in the epigastrium of the abdomen appreciated. Acute pancreatitis noted on CT scan, s/p bolus in ED, additional bolus provided, patient will then remain on IVF and gentle advancement of diet as tolerated. Subjective Pt is a 60 yo female with a past medical history of DMT2 on jaurdiance, hepatitis C associated liver cirrhosis, and portal vein thrombosis who presents to the hospital on 11/03/22 for 1 day abdominal pain, nausea, and fevers, found to have acute pancreatitis. Guyanese refrigerator repairman was used to translate for interview this morning, Enedelia #[id number]. Pt states that she feels like she got pancreatitis after a friend of hers had a virus and got sick last week, and she feels she got the same virus and that is contributing to her symptoms now. She states she is no longer having abdominal pain after they gave her IV pain medication but that she still has shoulder joint pain bilaterally. She notes that she had a fever when she was home. She states she feels very tired today since she did not get to sleep well last night getting here late and being woken up for labs. She notes feeling dry since she's been NPO. She denies difficulty urinating. Also denies any other infectious contacts. No further questions or complaints at this time. Review of Systems Review of Systems: Per HPI. Physical Exam Physical Exam: General:Alert and oriented, no acute distress, fatigued female HEENT: Normocephalic, dry oral mucosa, Cardio: Regular rate and rhythm, no murmur, Resp:Lungs clear to auscultation b/l, no wheezes or rhonchi, GI: bowel sounds active Skin: Warm, pink, dry, Results & Data Results & Data Vital Signs (Past 12 Hours) Vital Signs Temp Pulse Resp BP Pulse Ox O2 Del Method 11/03/22 07:00 97 H 23 121/73 91 11/03/22 06:34 94 H 19 133/80 96 11/03/22 05:00 91 H 25 H 108/69 95 11/03/22 04:30 92 H 24 95 11/03/22 04:30 115/58 L 11/03/22 04:00 94 H 23 96 11/03/22 04:00 109/62 11/03/22 03:30 94 H 24 110/61 95 11/03/22 03:30 110/61 11/03/22 03:22 101/50 L 11/03/22 03:22 95 H 19 93 11/03/22 03:02 93 H 19 107/54 L 96 11/03/22 03:00 97 H 23 94 11/03/22 02:30 91 H 17 99/62 L 95 11/03/22 02:30 99/62 L 11/03/22 02:00 97 H 22 113/59 L 90 11/03/22 02:00 113/59 L 11/03/22 01:35 94 H 11/03/22 01:36 98 H 19 110/67 92 11/03/22 01:13 95 H 18 91 Room Air 11/02/22 23:39 37.5 C 110 H 18 129/75 93 Room Air Resident Activity Tracking Resident Involvement: Resident Care Provided Care Provided: Adult Hospital Medicine (1) Acute pancreatitis Acute pancreatitis complication: unspecified Pancreatitis type: unspecified pancreatitis type Qualified Code(s): K85.90 - Acute pancreatitis without necrosis or infection, unspecified (3) Cirrhosis of liver Ascites presence: with ascites Hepatic cirrhosis type: unspecified hepatic cirrhosis Qualified Code(s): K74.60 - Unspecified cirrhosis of liver; R18.8 - Other ascites (4) Hepatitis C Hepatic coma status: without hepatic coma Viral hepatitis chronicity: chronic Qualified Code(s): B18.2 - Chronic viral hepatitis C
[2022-11-03] MEDS: INSULIN ASPART PER UNIT CHARGE SC SCH ×4 (09:45→21:54)
[2022-11-03 09:50] LABS: Estimated Average Glucose 189 mg/dl; Hemoglobin A1C 8.2 % (4.5-5.6)
--- NOTE | 2022-11-03 09:52 | XRay Report ---
XR chest 1V portable CLINICAL HISTORY: Sepsis TECHNIQUE: Single frontal radiograph of the chest was obtained. Comparison: Comparison is made to chest radiograph 09/09/2020 FINDINGS: No lines and tubes are seen. Cardiomegaly is noted. Prominence and cephalization of the vasculature i s seen. Trace bibasilar atelectasis is noted. No evidence of pleural effusion or pneumothorax. IMPRESSION: Cardiomegaly and mild pulmonary edema. ACT 112: Negative or not required by law. Electronically signed by: Satya Kearney M.D. 11/03/2022 9:51 AM
[2022-11-03] MEDS ORDERED: MoRPHine SULFATE 2 MG/ML CARP IV PRN (10:40)
[2022-11-03 10:55] LABS: A calco-baum cmplx NotReported Not Detected (NotDetected); Bact fragilis Not Reported Not Detected (NotDetected); C auris Not Reported Not Detected (NotDetected); Calbicans Not Reported Not Detected (NotDetected); Candida glabrata Not Reported Not Detected (NotDetected); Candida krusei Not Reported Not Detected (NotDetected); Cneoformans/gatti Not Reported Not Detected (NotDetected); Cparapsilosis Not Reported Not Detected (NotDetected); Ctropicalis Not Reported Not Detected (NotDetected); E cloacae compx Not Reported Not Detected (NotDetected); Efaecalis Not Reported Not Detected (NotDetected); Efaecium Not Reported Not Detected (NotDetected); Enterobacterales Not Reported Not Detected (NotDetected); Escherichia coli Not Reported Not Detected (NotDetected); H influenzae Not Reported Not Detected (NotDetected); K aerogenes Not Reported Not Detected (NotDetected); Koxytoca Not Reported Not Detected (NotDetected); Kpneumoniae grp Not Reported Not Detected (NotDetected); Lmonocyt Not Reported Not Detected (NotDetected); N meningitidis Not Reported Not Detected (NotDetected); P aeruginosa Not Reported Not Detected (NotDetected); Proteus spp Not Reported Not Detected (NotDetected); Salmonella spp Not Reported Not Detected (NotDetected); Smarcescens Not Reported Not Detected (NotDetected); Staph lugdunensis Not Reported Not Detected (NotDetected); Staph spp. Not Reported Not Detected (NotDetected); Staphaureus Not Reported Not Detected (NotDetected); Staphepi Not Reported Not Detected (NotDetected); Stenmaltophilia Not Reported Not Detected (NotDetected); Strep agal(GrpB) Not Reported DETECTED (NotDetected); Strep pneum Not Reported Not Detected (NotDetected); Strep pyog (GrpA) Not Reported Not Detected (NotDetected); Strep spp Not Reported DETECTED (NotDetected); Streptococcus spp DETECTED (NotDetected)
[2022-11-03 11:09] LABS: Streptococcus agalactiae(GrpB) DETECTED (NotDetected)
[2022-11-03] MEDS: SPIRONOLACTONE 100 MG TAB PO SCH (11:15)
[2022-11-03] MEDS: PANTOprazole 40 MG TAB PO SCH (11:16)
--- NOTE | 2022-11-03 11:47 | Electrocardiogram Report ---
Test Reason : Blood Pressure : / mmHG Vent. Rate : 097 BPM Atrial Rate : 097 BPM P-R Int : 174 ms QRS Dur : 078 ms QT Int : 426 ms P-R-T Axes : 029 003 019 degrees QTc Int : 541 ms Normal sinus rhythm Poor R wave progression, consider anterior SD vs. lead placement vs. LVH Abnormal ECG When compared with ECG of 09-SEP-2020 13:10, No significant change was found Confirmed by Kendall Emanuel ([id number]) on 11/03/2022 11:46:50 AM Referred By: REFERRED SELF Confirmed By:Kendall Emanuel
[2022-11-03] MEDS ORDERED: IBUPROFEN 600 MG TAB PO PRN (13:31)
[2022-11-03] MEDS: cefTRIAXone SODIUM 2,000 MG in DEXTROSE 5% 50 ML IV SCH (14:15)
[2022-11-03] MEDS ORDERED: LACTATED RINGER'S 1,000 ML IV ONE (16:18)
[2022-11-03] MEDS: WARFARIN SOD 7.5 MG TAB PO SCH (16:20)
--- NOTE | 2022-11-03 17:52 | XRay Report ---
XR chest 2V PA/lateral CLINICAL HISTORY: Repeat xray, +blood cultures without clear source TECHNIQUE: 2 views of the chest were obtained. Comparison: Comparison is made to chest radiograph 11/03/2022 FINDINGS: No lines and tubes are seen. Cardiomegaly is noted. Prominence and cephalization of the vasculature i s seen. No evidence of pleural effusion or pneumothorax. IMPRESSION: Cardiomegaly and mild pulmonary edema. ACT 112: Negative or not required by law. Electronically signed by: Satya Kearney M.D. 11/03/2022 5:51 PM
[2022-11-03] MEDS ORDERED: NITROGLYCERIN SL 0.4 MG/TAB TAB SL STA (22:58)
--- NOTE | 2022-11-03 22:59 | Billing Data ---
Date of Service November 03, 2022 Coding Level of Care Code 69101 INT INP/OBS CARE
[2022-11-03] MEDS ORDERED: LABETALOL HCL IV 5 MG/ML 20ML IV STA (23:03)
--- NOTE | 2022-11-04 06:47 | Hospitalist Progress Note ---
Date of Service November 04, 2022 Assessment & Plan (1) Acute pancreatitis: Plan: Pt is a 60 yo female with a past medical history of DMT2 on Jardiance, hepatitis C associated liver cirrhosis, and portal vein thrombosis who presents to the hospital on 11/03/22 for 1 day abdominal pain, nausea, and fevers, found to have acute pancreatitis. # Gram positive bacteremia - source unclear, - received zosyn in ER - blood culture + for gram+ cocci in chains, awaiting specificity - PCR positive for strep agalactiae - urine culture pending, negative so far - TTE shows no vegetation - continue supportive care and close monitoring - blood culture shows group b beta strep - continue rocephin 2 g IV daily - ID consulted; pending recommendations #Acute Pancreatitis - No prior occurrence, BISAP score of 1 (age >60). - CT A/P: Acute pancreatitis without pancreatic pseudocyst. Intra-abdominal ascites likely reactive in nature. - Lactate within normal limits, alk phos within normal limits, AST/ALT also within normal limits. - S/p IV Zosyn, IV Tylenol 1000 mg, 1 L normal saline bolus in the ED. * Admitted to [facility] with telemetry. * Pain control regimenIV Tylenol 1000 mg every 8 hours as needed, as needed IV Dilaudid 0.5 mg, 0.25 mg every 3 hours each as needed. * Lipid profile wnl * Lipase wnl, 74 then 56 - continue mIVFlactated Ringer@125 mL/hr - continue 2mg morphine prn q4h for severe pain control - will have PT see her prior to discharge, - continue full liquid diet, may advance tomorrow #Diabetes mellitus, [id number]-zxvtijfck -Chronic. Managed at home on Jardiance only. -Serum glucose on admission 259. -Last measured hemoglobin A1c 9.2 in June 2022. * Jardiance held on admission. * Hemoglobin A1c pending * Sliding scale insulin per protocol #Hepatitis C/cirrhosis of liver/portal vein thrombosis -Chronic. Diagnosed in [place] in 2019 while on vacation. -Initially treated, though patient cannot recall (not on any medical therapy at this time). -Portal vein thrombosis diagnosed in 2020; managed on warfarin. -Intra-abdominal ascites seen on CT A/P, though noted to be likely reactive in nature. -Hepatic cirrhosis with portal hypertension also noted on CT A/P. * Continue home warfarin * Trend daily CBC * INR 2.0 yesterday Code: Full code Dispo: Med-Surg telemetry DVT Prophylaxis: Home warfarin Consults: None Case Management: No (2) Diabetes: (3) Cirrhosis of liver: (4) Hepatitis C: (5) Portal vein thrombosis: Admission and Anticipated Discharge Date Admission Date: November 03, 2022 Supervising Physician Co-Signing Physician Notes I personally examined the patient and verified all garcia points of history and exam, discussed case, and agree with decision making with Dr Diallo discussion with assistance of medical coding auditor feeling better just a little bloated no pain no nausea ate full liquid without problems vitals noted nad heent nc at mmm breathing unlabored no accessory muscles good effort skin no rashes no pallor or icterus pancreatitis - improving. advance diet gram (+) bacteremia - repeat Cx NGTD, echo without vegetation. rocephin - anticpiate probably needing 2wks anticoagulated on warfarin otherwise as above Subjective Pt is a 60 yo female with a past medical history of DMT2 on Jardiance, hepatitis C associated liver cirrhosis, and portal vein thrombosis who presents to the hospital on 11/03/22 for 1 day abdominal pain, nausea, and fevers, found to have acute pancreatitis. Vincentian basketballs and footballs reverser was used to translate for interview this morning, Nirmala #[id number]. Today, pt states that she is feeling a bit better. She has been tolerating clear liquids without nausea or vomiting. She states that she is still feeling tender, but is improved today. Overall pt looks more comfortable today as well. When examining her, chronic venous stasis noted and pt states she saw a vascular doctor for it but they said there was nothing they could do to treat it. Again, denies any lesions anywhere on her body, just notes that her shoulders ache. Review of Systems Review of Systems: Per HPI. Physical Exam Physical Exam: General:Alert and oriented, no acute distress, fatigued female HEENT: Normocephalic, dry oral mucosa, Cardio: Regular rate and rhythm, no murmur, Resp:Lungs clear to auscultation b/l, no wheezes or rhonchi, GI: bowel sounds active, distended but soft, Skin: Warm, pink, dry, Results & Data Results & Data Vital Signs (Past 12 Hours) Vital Signs Temp Pulse Resp BP Pulse Ox O2 Del Method 11/03/22 22:00 Room Air 11/04/22 03:33 36.3 C L 63 18 103/66 92 Room Air 11/03/22 22:01 37.8 C H 79 18 120/75 94 Room Air 11/03/22 19:39 36.9 C 78 18 109/70 93 Room Air Resident Activity Tracking Resident Involvement: Resident Care Provided Care Provided: Adult Hospital Medicine (1) Acute pancreatitis Acute pancreatitis complication: unspecified Pancreatitis type: unspecified pancreatitis type Qualified Code(s): K85.90 - Acute pancreatitis without necrosis or infection, unspecified (3) Cirrhosis of liver Ascites presence: with ascites Hepatic cirrhosis type: unspecified hepatic cirrhosis Qualified Code(s): K74.60 - Unspecified cirrhosis of liver; R18.8 - Other ascites (4) Hepatitis C Hepatic coma status: without hepatic coma Viral hepatitis chronicity: chronic Qualified Code(s): B18.2 - Chronic viral hepatitis C
[2022-11-04 08:16] LABS: Hematocrit (blood only) 34.5 % (37.0-47.0); Hemoglobin 11.6 g/dl (12.0-16.0); Mean Corpuscular Hemoglobin 30.2 pg (25.0-34.0); Mean Corpuscular Hgb Conc 33.6 g/dL (32.0-36.0); Mean Corpuscular Volume 89.8 fL (80.0-100.0); Mean Platelet Volume 13.9 fL (9.4-12.4); Platelet Count 38 K/uL (130-400); RDW Coefficient of Variation 15.9 % (11.5-14.5); RDW Standard Deviation 52.5 fL (36.4-46.3); Red Blood Count 3.84 M/uL (4.20-5.40); White Blood Count 3.48 K/ul (4.8-10.8)
[2022-11-04 08:27] LABS: Albumin Globulin Ratio 0.9 (0.9-2); Albumin Level 2.7 gm/dl (3.4-5.0); BUN Creatinine Ratio 23.3 (10-20); Calcium 7.9 mg/dl (8.6-10.3); Creatinine Clr Calc Pharmacy 177.4 ml/min; Est GFR (African American) 126.3 ml/min; Potassium 3.7 mmol/L (3.5-5.1); Total Protein 5.7 gm/dl (6.0-8.3)
[2022-11-04] MEDS: INSULIN ASPART PER UNIT CHARGE SC SCH ×4 (09:03→21:26)
[2022-11-04] MEDS: SPIRONOLACTONE 100 MG TAB PO SCH (09:15)
[2022-11-04] MEDS: PANTOprazole 40 MG TAB PO SCH (09:15)
--- NOTE | 2022-11-04 10:28 | XCELERA ---
[id number] \\[id number]
--- NOTE | 2022-11-04 12:24 | Infectious Disease Consult ---
Date of Consultation November 04, 2022 Assessment & Plan (1) Bacteremia due to group B Streptococcus: (2) Acute pancreatitis: Plan Micro: 11/03 BCx x2: pending 11/03 UCx: NG 11/03 BCx x2: GBS in 4/4 bottles ABX: Ceftriaxone 2 g 11/03 - present Pip-tazo 11/02 Problems: #GBS bacteremia #Pancreatitis #Chronic venous stasis of BLE #Cirrhosis 61 yo Maltese-speaking F with history of treated HCV with cirrhosis c/b ascites, portal vein thrombosis on warfarin, DM2, venous stasis dermatitis who presented on 11/02 with fever, chills, upper abdominal pain, nausea since 8 PM. She was feeling well until her symptoms started acutely that evening. She denied vomiting, constipation, diarrhea. On presentation, T37.5, HR 110. Labs showed WBC 6.1, platelets 43, lactate 1.8, procalcitonin 0.07. UA, RVP negative. Blood cultures were collected. Chest x-ray showed mild pulmonary edema. CT A/P with IV contrast showed hepatic cirrhosis, acute pancreatitis without pancreatic pseudocyst, intra-abdominal ascites likely reactive in nature. Patient denied alcohol consumption. Blood cultures grew GBS in 4/4 bottles, and patient was started on ceftriaxone 2 G IV daily. TTE on 11/04 showed no valvular vegetation. WBC has downtrended to 3.48 (appears to be around her baseline). Tbili has upt rended to 2. Last fever was on 11/03 a.m. to 38.3. Patient reports no abdominal pain today. She denies any metal/prosthetic devices. She was hospitalized in July for LLE cellulitis, but this resolved. Denies new recent wounds/rash. States her last paracentesis was about 1 year ago. Unclear cause of GBS bacteremia. Wonder if it could be related to her pancreatitis--although it is not known to be a cause of pancreatitis, and there was no peripancreatic fluid collection seen on CT. GBS typically colonizes the lower GI/genital tract, and can cause pneumonia, endocarditis, septic arthritis, osteomyelitis, SSTI, meningitis, UTI. Urine culture was negative. Patient has chronic venous stasis of bilateral lower extremities, without signs of cellulitis. Recommendations: -Follow-up 11/03 blood cultures for clearance. -Continue ceftriaxone 2 g IV daily -If repeat blood cultures remain negative, may be able to treat with 14 day course of ceftriaxone. Will continue to follow. Please page [facility] with further questions. Consultation Information Consultation was provided via telemedicine using two-way real-time interactive telecommunication between the patient and the telemedicine provider. For the duration of the visit, the provider was performing the assessment from a different facility than the patient. This includesuse of bluetooth stethoscope forauscultationperformed by the telepresenter that the telemedicine provider can hear if described in the physical exam. Head Butler contact information: Please call [facility] . (Phone Number For Physician Use Only) After establishing a telemedicine visit, patient was: Patient was verified with two unique identifiers, Patient/authorized rep acknowledged consent and understanding and Gave permission to continue telehealth session Time Spent with Patient: Initial => 40 min History of Present Illness Reason for Consultation: Strep bacteremia Requesting Physician: Dr. Frank Mazariegos Attending Physician: Frank Mazariegos DO History of Present Illness 61 yo Maltese-speaking F with history of treated HCV with cirrhosis c/b ascites, portal vein thrombosis on warfarin, DM2, venous stasis dermatitis who presented on 11/02 with fever, chills, upper abdominal pain, nausea since 8 PM. She was feeling well until her symptoms started acutely that evening. She denied vomiting, constipation, diarrhea. On presentation, T37.5, HR 110. Labs showed WBC 6.1, platelets 43, lactate 1.8, procalcitonin 0.07. UA, RVP negative. Blood cultures were collected. Chest x-ray showed mild pulmonary edema. CT A/P with IV contrast showed hepatic cirrhosis, acute pancreatitis without pancreatic pseudocyst, intra-abdominal ascites likely reactive in nature. Patient denied alcohol consumption. Blood cultures grew GBS in 4/4 bottles, and patient was started on ceftriaxone 2 G IV daily. TTE on 11/04 showed no valvular vegetation. WBC has downtrended to 3.48 (appears to be around her baseline). Tbili has up trended to 2. LFTs remain normal. Last fever was on 11/03 a.m. to 38.3. Patient reports no abdominal pain today. She denies any metal/prosthetic devices. She was hospitalized in July for LLE cellulitis, but this resolved. Denies new recent wounds/rash. States her last paracentesis was about 1 year ago. Allergies Allergy/AdvReac Type Severity Reaction Status Date / Time menthol Allergy Severe Anaphylaxis Verified 08/03/22 18:49 mint Allergy Severe Anaphylaxis Verified 08/03/22 18:49 Home Medications Medication Instructions Recorded Confirmed Type polyethylene glycol 3350 17 gram 17 g PO BID PRN constipation #60 ea 04/02/20 10/16/22 Rx oral powder packet (Miralax) furosemide 40 mg tablet 40 mg PO DAILY 10/03/20 10/16/22 History empagliflozin 10 mg tablet 10 mg PO DIRECTED PRN IF BSG 05/27/22 10/16/22 History (Jardiance) >200 spironolactone 100 mg tablet 100 mg PO QAM 05/27/22 10/16/22 History warfarin 5 mg tablet See Rx Instructions PO UD #140 tabs 07/08/22 10/16/22 Rx oxycodone 5 mg tablet 5 mg PO Q8H PRN moderate-severe 08/06/22 10/16/22 Rx pain #6 tabs pantoprazole 40 mg tablet,delayed 40 mg PO QAM #14 tabs 08/06/22 10/16/22 Rx release Patient History Medical History Ascites Cirrhosis of liver Diabetes NIDDM Edema bilateral legs, comes and goes. Epigastric pain Hepatitis C dx in [place] in 2019 during a vacation - son states patient did have treatment in the past unsure if it was October 2020 or October 2021. History of abdominal paracentesis Hypothyroidism hx of taking levothyroxine in November 2021 -- no longer takes. Lyme disease August 2020 - treated no current issues Partial small bowel obstruction son unaware of details Portal vein thrombosis (dx in 2020) currently on warfarin. Sepsis hx in 2020. 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 Communication Tools: Language Line Personal Banking Officer Personal Banking Officer Required: Yes Beliefs That Will Affect Care: None marital status: Single marital status details: from ; he lives in [facility]; he has HepC Current Living Situation: Family Current Living Situation Comment: lives with son in an apartment current occupational status: retired How many Children do You have: 2 Other Information That Helps Us Care for You: No other: In [place] 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 Physical Exam Physical Exam: GEN: Well-appearing, in NAD. RESP: No increased work of breathing EXT: Warm, well-perfused. SKIN: chronic venous stasis changes of bilateral lower legs, no wounds. NEURO: Alert and oriented. Answers all questions appropriately. Speech not slurred. PSYCH: Normal mood, affect appropriate. Results & Data Vital Signs (Past 12 Hours) Vital Signs Temp Pulse Pulse Pulse Resp BP Pulse Ox 11/04/22 11:25 36.8 C 64 16 118/76 95 11/04/22 07:30 11/04/22 07:47 36.6 C 64 16 113/73 95 11/04/22 07:14 36.6 C 60 18 112/72 95 11/04/22 06:52 63 11/04/22 03:33 36.3 C L 63 18 103/66 92 O2 Del Method 11/04/22 11:25 Room Air 11/04/22 07:30 Room Air 11/04/22 07:47 Room Air 11/04/22 07:14 Room Air 11/04/22 06:52 11/04/22 03:33 Room Air Laboratory Results Short CBC 11/04/22 Range/Units 07:09 WBC 3.48 L (4.8-10.8) K/ul Hgb 11.6 L (12.0-16.0) g/dl Hct 34.5 L (37.0-47.0) % Plt Count 38 L (130-400) K/uL BMP 11/04/22 07:09 Sodium 136 Potassium 3.7 Chloride 105 Carbon Dioxide 28 BUN 10 Creatinine 0.43 L Glucose 135 H Calcium 7.9 L Liver Function 11/04/22 Range/Units 07:09 Total Bilirubin 2.0 H (0.2-1.0) mg/dl AST 25 (13-39) U/L ALT 21 (7-52) U/L Alkaline Phosphatase 54 (34-104) U/L Albumin 2.7 L (3.4-5.0) gm/dl Diagnostic Findings Chest X-Ray 11/02/22 23:53 XR chest 1V portable CLINICAL HISTORY: Sepsis TECHNIQUE: Single frontal radiograph of the chest was obtained. Comparison: Comparison is made to chest radiograph 09/09/2020 FINDINGS: No lines and tubes are seen. Cardiomegaly is noted. Prominence and cephalization of the vasculature is seen. Trace bibasilar atelectasis is noted. No evidence of pleural effusion or pneumothorax. IMPRESSION: Cardiomegaly and mild pulmonary edema. ACT 112: Negative or not required by law. Electronically signed by: Satya Kearney M.D. 11/03/2022 9:51 AM Abdomen/Pelvis CT 11/02/22 23:54 Exam(s): CT ABDOMEN + PELVIS With Contrast IV Amt: 93ml OPTIRAY 320 EXAM: CT Abdomen and Pelvis With Intravenous Contrast CLINICAL HISTORY: Reason for exam: fever, abd pain, cirr.. TECHNIQUE: Axial computed tomography images of the abdomen and pelvis with intravenous contrast. CTDI is 27.64 mGy and DLP is 1411.5 mGy-cm. Automated exposure control was utilized for the study. A dose lowering technique was utilized adhering to the principles of ALARA. CONTRAST: Patient received 93ml OPTIRAY 320 of IV contrast COMPARISON: 03/30/2020 FINDINGS: Lung bases: Unremarkable. No mass. No consolidation. ABDOMEN: Liver: Hepatic cirrhosis with portal hypertension with esophageal and gastric varices are recanalization of the umbilical vein. Gallbladder and bile ducts: Unremarkable. No calcified stones. No ductal dilation. Pancreas: Inflammatory changes about the pancreatic head which is enlarged. No peripancreatic fluid collection. Spleen: Splenomegaly. Adrenals: Unremarkable. No mass. Kidneys and ureters: Unremarkable. No solid mass. No hydronephrosis. Stomach and bowel: Midline anterior bowel wall hernia containing only fluid. No obstruction. No mucosal thickening. PELVIS: Appendix: No findings to suggest acute appendicitis. Bladder: Unremarkable. No mass. Reproductive: Unremarkable as visualized. ABDOMEN and PELVIS: Intraperitoneal space: Mild intra-abdominal volume of abdominal and pelvic ascites. No free air. Bones/joints: No acute fracture. No dislocation. Soft tissues: See above. Vasculature: See above. Lymph nodes: Unremarkable. No enlarged lymph nodes. IMPRESSION: 1. Hepatic cirrhosis 2. Acute pancreatitis without pancreatic pseudocyst 3. Intra-abdominal ascites likely reactive in nature 4. Hepatic cirrhosis with portal hypertension. Electronically signed by: Frank Redmond MD 11/03/22 01:37 AM Chest X-Ray 11/03/22 17:12 XR chest 2V PA/lateral CLINICAL HISTORY: Repeat xray, +blood cultures without clear source TECHNIQUE: 2 views of the chest were obtained. Comparison: Comparison is made to chest radiograph 11/03/2022 FINDINGS: No lines and tubes are seen. Cardiomegaly is noted. Prominence and cephalization of the vasculature is seen. No evidence of pleural effusion or pneumothorax. IMPRESSION: Cardiomegaly and mild pulmonary edema. ACT 112: Negative or not required by law. Electronically signed by: Satya Kearney M.D. 11/03/2022 5:51 PM Medications Administered Current Inpatient Medications Dextrose (Dextrose 50% 50 Ml Syringe) 25 - 50 ml IV UD PRN; Protocol PRN Reason: Hypoglycemia Protocol Stop: 12/03/22 05:45 Glucagon (Glucagon For Inj 1 Mg Vial) 1 mg SQ UD PRN; Protocol PRN Reason: Hypoglycemia Protocol Stop: 12/03/22 05:45 Glucose (Glucose 10 Tab/Tube) 4 - 8 tab PO UD PRN; Protocol PRN Reason: Hypoglycemia Treatment Stop: 12/03/22 05:45 Glucose (Glucose 40% Gel 15 Gm Tube) 15 - 30 gm PO UD PRN; Protocol PRN Reason: Hypoglycemia Protocol Stop: 12/03/22 05:45 Ceftriaxone Sodium 2,000 mg/ (Dextrose) 70 mls @ 100 mls/hr IV Q24H JOSE DAVID; Protocol Stop: 11/17/22 13:29 Last Infusion: 11/03/22 15:13 Dose: Infused Ibuprofen (Ibuprofen 600 Mg Tab) 600 mg PO Q8H PRN PRN Reason: Fever Stop: 12/03/22 13:30 Last Admin: 11/03/22 23:24 Dose: 600 mg Insulin Aspart (Insulin Aspart Per Unit Charge) 0 units SC ACHS [facility] Stop: 12/03/22 07:29 Last Admin: 11/04/22 09:03 Dose: 3 units Miscellaneous (Carbohydrates For Hypoglycemia ) 15 - 30 gm PO UD PRN PRN Reason: Hypoglycemia Protocol Stop: 12/03/22 05:45 Morphine Sulfate (Morphine Sulfate 2 Mg/Ml Carp) 2 mg IV Q4H PRN PRN Reason: Pain Stop: 11/17/22 10:39 Last Admin: 11/04/22 07:53 Dose: 2 mg Pantoprazole Sodium (Pantoprazole 40 Mg Tab) 40 mg PO [facility] Stop: 12/03/22 08:59 Last Admin: 11/04/22 09:15 Dose: 40 mg Spironolactone (Spironolactone 100 Mg Tab) 100 mg PO [facility] Stop: 12/03/22 08:59 Last Admin: 11/04/22 09:15 Dose: 100 mg Warfarin Sodium (Warfarin Sod 7.5 Mg Tab) 7.5 mg PO DAILY@1600 [facility] Stop: 12/03/22 15:59 Last Admin: 11/03/22 16:20 Dose: 7.5 mg (2) Acute pancreatitis Acute pancreatitis complication: unspecified Pancreatitis type: unspecified pancreatitis type Qualified Code(s): K85.90 - Acute pancreatitis without necrosis or infection, unspecified
[2022-11-04] MEDS: cefTRIAXone SODIUM 2,000 MG in DEXTROSE 5% 50 ML IV SCH (13:42)
--- NOTE | 2022-11-04 16:33 | Billing Data ---
Date of Service November 04, 2022 Coding Level of Care Code 97285 SUB INP/OBS CARE 3MIN
[2022-11-04] MEDS: WARFARIN SOD 7.5 MG TAB PO SCH (16:38)
--- NOTE | 2022-11-05 06:55 | Hospitalist Progress Note ---
Date of Service November 05, 2022 Assessment & Plan (1) Acute pancreatitis: Plan: Pt is a 60 yo female with a past medical history of DMT2 on Jardiance, hepatitis C associated liver cirrhosis, and portal vein thrombosis who presents to the hospital on 11/03/22 for 1 day abdominal pain, nausea, and fevers, found to have acute pancreatitis. # Gram positive bacteremia - source unclear, - received zosyn in ER - PCR positive for strep agalactiae - TTE shows no vegetation - urine culture pending, negative so far - continue supportive care and close monitoring - blood culture shows group b beta strep, repeat negative so far - continue rocephin 2 g IV daily - ID consulted; continue rocephin, if blood cultures negative may be able to treat with 14 days #Acute Pancreatitis - No prior occurrence, BISAP score of 1 (age >60). - CT A/P: Acute pancreatitis without pancreatic pseudocyst. Intra-abdominal ascites likely reactive in nature. - Lactate within normal limits, alk phos within normal limits, AST/ALT also within normal limits. - S/p IV Zosyn, IV Tylenol 1000 mg, 1 L normal saline bolus in the ED. * Admitted to [facility] with telemetry. * Pain control regimenIV Tylenol 1000 mg every 8 hours as needed, as needed IV Dilaudid 0.5 mg, 0.25 mg every 3 hours each as needed. * Lipid profile wnl * Lipase wnl, 74 then 56 - continue mIVFlactated Ringer@125 mL/hr - continue 2mg morphine prn q4h for severe pain control - will have PT see her prior to discharge, - continue full liquid diet, may advance tomorrow #Diabetes mellitus, [id number] -Chronic. Managed at home on Jardiance only. -Serum glucose on admission 259. -Last measured hemoglobin A1c 9.2 in June 2022. * Jardiance held on admission. * Hemoglobin A1c pending * Sliding scale insulin per protocol #Hepatitis C/cirrhosis of liver/portal vein thrombosis -Chronic. Diagnosed in [place] in 2019 while on vacation. -Initially treated, though patient cannot recall (not on any medical therapy at this time). -Portal vein thrombosis diagnosed in 2020; managed on warfarin. -Intra-abdominal ascites seen on CT A/P, though noted to be likely reactive in nature. -Hepatic cirrhosis with portal hypertension also noted on CT A/P. * Continue home warfarin * Trend daily CBC * INR 2.0 yesterday Code: Full code Dispo: Med-Surg telemetry DVT Prophylaxis: Home warfarin Consults: None Case Management: No (2) Diabetes: (3) Cirrhosis of liver: (4) Hepatitis C: (5) Portal vein thrombosis: Admission and Anticipated Discharge Date Admission Date: November 03, 2022 Subjective Pt is a 60 yo female with a past medical history of DMT2 on Jardiance, hepatitis C associated liver cirrhosis, and portal vein thrombosis who presents to the hospital on 11/03/22 for 1 day abdominal pain, nausea, and fevers, found to have acute pancreatitis. [place] lumber mover was used to translate for interview this morning, Today, Review of Systems Review of Systems: Per HPI. Physical Exam Physical Exam: General:Alert and oriented, no acute distress, fatigued female HEENT: Normocephalic, dry oral mucosa, Cardio: Regular rate and rhythm, no murmur, Resp:Lungs clear to auscultation b/l, no wheezes or rhonchi, GI: bowel sounds active, distended but soft, Skin: Warm, pink, dry, Results & Data Results & Data Vital Signs (Past 12 Hours) Vital Signs Temp Pulse Pulse Resp BP BP Pulse Ox 11/05/22 05:00 36.9 C 62 18 134/81 95 11/05/22 01:12 37.2 C 76 20 129/81 94 11/04/22 23:53 11/04/22 22:00 74 11/04/22 23:06 11/04/22 20:13 36.4 C L 71 20 119/71 94 Pulse Ox O2 Del Method O2 Del Method 11/05/22 05:00 Room Air 11/05/22 01:12 Room Air 11/04/22 23:53 95 Room Air 11/04/22 22:00 11/04/22 23:06 Room Air 11/04/22 20:13 Room Air (1) Acute pancreatitis Acute pancreatitis complication: unspecified Pancreatitis type: unspecified pancreatitis type Qualified Code(s): K85.90 - Acute pancreatitis without necrosis or infection, unspecified (3) Cirrhosis of liver Ascites presence: with ascites Hepatic cirrhosis type: unspecified hepatic cirrhosis Qualified Code(s): K74.60 - Unspecified cirrhosis of liver; R18.8 - Other ascites (4) Hepatitis C Hepatic coma status: without hepatic coma Viral hepatitis chronicity: chronic Qualified Code(s): B18.2 - Chronic viral hepatitis C
[2022-11-05 07:41] LABS: Albumin Globulin Ratio 0.9 (0.9-2); Bilirubin,Total 1.2 mg/dl (0.2-1.0); Calcium 8.2 mg/dl (8.6-10.3); Creatinine Clr Calc Pharmacy 169.6 ml/min; Est GFR (African American) 124.5 ml/min; Est GFR (Non-African American) 107.4 ml/min; Globulin 3.4 gm/dl (2.5-4.0); Potassium 3.8 mmol/L (3.5-5.1); Total Protein 6.4 gm/dl (6.0-8.3)
[2022-11-05 07:43] LABS: Hematocrit (blood only) 37.3 % (37.0-47.0); Hemoglobin 12.6 g/dl (12.0-16.0); Mean Corpuscular Hemoglobin 29.7 pg (25.0-34.0); Mean Corpuscular Hgb Conc 33.8 g/dL (32.0-36.0); Platelet Count 41 K/uL (130-400); RDW Coefficient of Variation 15.9 % (11.5-14.5); RDW Standard Deviation 51.7 fL (36.4-46.3); Red Blood Count 4.24 M/uL (4.20-5.40); White Blood Count 2.96 K/ul (4.8-10.8)
[2022-11-05] MEDS: SPIRONOLACTONE 100 MG TAB PO SCH (08:42)
[2022-11-05] MEDS: PANTOprazole 40 MG TAB PO SCH (08:42)
[2022-11-05] MEDS: INSULIN ASPART PER UNIT CHARGE SC SCH ×2 (09:10→13:10)
[2022-11-05 11:02] LABS: INR 2.5 (0.9-1.1); Prothrombin Time 25.6 Seconds (9.0-12.0)
--- NOTE | 2022-11-05 12:58 | Discharge Summary ---
Date of Service November 05, 2022 Admission HPI Per Admitting Provider Inessa is a 62-year-old Tuvaluan-speaking woman (interview conducted through medical physics professor iPad) with a history of hepatitis C with cirrhosis of the liver and portal vein thrombosis (on Coumadin), DM2, GERD, who presented to the emergency room with a complaint of fever, chills, and upper abdominal pain since 8 PM. Patient checked her temperature at home and it was 102 F at its peak. Son was concerned so he brought his mom in. She denies headache, chest pain, vomiting, constipation, or diarrhea. On admission, vitals notable for tachycardia to the 110s and a pulse ox reading of 93% on room air. Labs revealed PT of 21.2, INR of 2.0, which is her baseline, and PTT of 32.5. She had no leukocytosis or anemia. LFTs and alk phos were all within normal limits, as was lipase, which was normal. Rapid res piratory PCR was uniformly negative. CT A/P revealed acute pancreatitis without pancreatic pseudocyst. She received a 1 L normal saline bolus, and hospitalist service was consulted for admission. On admission, she corroborates HPI, though she admits her abdominal pain is much improved at this time. She also adds that her symptoms began at 8 PM after eating a meal of sausage, cheese, and tea at a friend's house. She admits her abdomen is more distended than usual. She also admits to back pain, though she denies radiation from presenting abdominal pain. She continues to deny headache, chest pain, shortness of breath, vomiting, or diarrhea. She further denies alcohol consumption. Admission Exam Per Admitting Provider General: No acute distress HEENT: PERRLA. Normal conjunctiva, anicteric sclera. Oropharynx normal. Respiratory: Normal respiratory effort, CTABL. Cardiovascular: RRR without murmurs, gallops, or rubs. No pedal edema. GI: Soft, distended abdomen on visual inspection. TTP at epigastrium, LUQ. Neuro: Alert and oriented x3. Principal Diagnosis Acute pancreatitis, streptococcus bacteremia Discharge Exam General:Alert and oriented, no acute distress, fatigued female HEENT: Normocephalic, dry oral mucosa, Cardio: Regular rate and rhythm, no murmur, Resp:Lungs clear to auscultation b/l, no wheezes or rhonchi, GI: bowel sounds active, distended but soft, Skin: Warm, pink, dry, Discharge Data Allergies Allergy/AdvReac Type Severity Reaction Status Date / Time menthol Allergy Severe Anaphylaxis Verified 08/03/22 18:49 mint Allergy Severe Anaphylaxis Verified 08/03/22 18:49 Consultations 11/03/22 02:40 ED Decision to Admit Stat 11/04/22 08:24 Consult Infectious Diseases Routine Ordered Studies 11/02/22 23:54 CT Abd and Pelvis [CT abd pelvis IV con only] Stat Hospital Course (1) Acute pancreatitis: Pt is a 60 yo female with a past medical history of DMT2 on Jardiance, hepatitis C associated liver cirrhosis, and portal vein thrombosis who presents to the hospital on 11/03/22 for 1 day abdominal pain, nausea, and fevers, found to have acute pancreatitis. # Strep bacteremia - source unclear, - received zosyn in ER - PCR positive for strep agalactiae - TTE shows no vegetation - urine culture pending, negative so far - continue supportive care and close monitoring - blood culture shows group b beta strep, repeat negative so far - ID consulted; continue rocephin 2g IV for total of 14 days #Acute Pancreatitis - No prior occurrence, BISAP score of 1 (age >60). - CT A/P: Acute pancreatitis without pancreatic pseudocyst. Intra-abdominal ascites likely reactive in nature. - Lactate within normal limits, alk phos within normal limits, AST/ALT also within normal limits. - S/p IV Zosyn, IV Tylenol 1000 mg, 1 L normal saline bolus in the ED. * Admitted to [facility] with telemetry. * Pain control regimenIV Tylenol 1000 mg every 8 hours as needed, as needed IV Dilaudid 0.5 mg, 0.25 mg every 3 hours each as needed. * Lipid profile wnl * Lipase wnl, 74 then 56 - continue mIVFlactated Ringer@125 mL/hr - continue 2mg morphine prn q4h for severe pain control - pt tolerated diet inpatient without nausea/vomiting #Diabetes mellitus, [id number] -Chronic. Managed at home on Jardiance only. -Serum glucose on admission 259. -Last measured hemoglobin A1c 9.2 in June 2022. * Jardiance held on admission. * Hemoglobin A1c pending * Sliding scale insulin per protocol while inpatient, to resume home medications on discharge #Hepatitis C/cirrhosis of liver/portal vein thrombosis -Chronic. Diagnosed in [place] in 2019 while on vacation. -Initially treated, though patient cannot recall (not on any medical therapy at this time). -Portal vein thrombosis diagnosed in 2020; managed on warfarin. -Intra-abdominal ascites seen on CT A/P, though noted to be likely reactive in nature. -Hepatic cirrhosis with portal hypertension also noted on CT A/P. * Continue home warfarin * Trend daily CBC * INR 2.5 Code: Full code DVT Prophylaxis: Home warfarin Consults: None Disposition: Home (2) Diabetes: (3) Cirrhosis of liver: (4) Hepatitis C: (5) Portal vein thrombosis: (6) Bacteremia due to group B Streptococcus: Total Time Total Time Spent Total Time Spent (In Minutes): <30 Discharge Plan Discharge Items Patient Disposition: Home - Self-Care Reason For Visit: ACUTE PANCREATITIS Discharge Diagnosis: Acute pancreatitis, streptococcal bacteremia Condition on Discharge: Fair Activity: Per Instructions section Non-emergency contact: Primary Care Provider Call non-emergency contact if: you have any medication questions, your pain is not controlled and your temperature is above 101.5 Follow-up/Referrals: PCP,NO [Primary Care Provider] - Diet: Low Fat Addtl Attending Provider Instructions: You were admitted for acute pancreatitis and group B beta streptococcal bacteremia. You were treated with IV antibiotics to treat the infection in your blood and initial bowel rest followed by return to eating. Your symptoms have improved, and we feel it is safe for you to return home and get daily IV antibiotics with [facility] for the next 11 days for a total of 14 days on the antibiot ics. You are to report to the hospital [facility] Treatment Unit ([facility]) (which is on the back end of the hospital near where the [facility] is located) at 2:00 pm tomorrow, 11/06/22 for your first scheduled continuation of antibiotics. You will have 11 appointments totally to finish a total of 14 days of antibiotics for your blood infection. Medications: Your medication list has been reviewed and reconciled upon discharge to ensure accuracy and continuity of care. An updated list of all your medications is included with your hospital discharge paperwork. Please review this list closely, and make note of any changes. Take your medications as instructed; do not skip a dose of your medicines. Make sure all of your doctors know every medicine you are taking (including bpmc-qst-lsrhfvk medicines, vitamins, and supplements). Call your primary care provider before taking any new medicines (including over- the-counter medicines, vitamins, and supplements), because some of these may interact with your current medications, or may make your symptoms worse. Tell your primary care provider if you cannot afford your medications. Activity: You can do normal everyday activities as your body allows. Take rest breaks if you feel tired. Do not overexert. Stop activity if you have pain, shortness of breath or feel dizzy. Follow-up appointments: Make an appointment with your primary care physician within one week of discharge. A copy of this summary will be sent to them. Every time you see your primary care physician, or any other doctor, bring your medication list, a list of questions, and your recent weights. CONTACT YOUR PRIMARY CARE PROVIDER if you experience any of the following: Shortness of breath or difficulty breathing Swelling of your feet, ankles, hands or abdomen Feeling tired with normal activity or experiencing dizziness or fainting Difficulty following your treatment plan, or difficulty taking medications CALL 911 OR GO TO THE EMERGENCY DEPARTMENT if you experience any of the following: Severe abdominal pain or nausea/vomiting Severe chest pain, or chest pain that radiates (moves) to your jaw or arm Sudden, severe shortness of breath or difficulty breathing Thank you for allowing us to participate in your care. Pt was given these exact instructions translated into Tuvaluan via [employer]late. Due to EMR limitations with Tuvaluan lettering, translation was done and printed separately using Word. Pending Studies at Discharge: No Stand-Alone Forms: My [facility] Medications and DC Order Prescriptions: Continued warfarin 5 mg tablet See Rx Instructions PO UD Qty: 140 1RF Rx Instructions: 7.5 mg q evening per [facility] orally use as directed polyethylene glycol 3350 [Miralax] 17 gram Powder In Packet 17 g PO BID PRN (Reason: constipation) Qty: 60 0RF furosemide 40 mg tablet 40 mg PO DAILY spironolactone 100 mg Tablet 100 mg PO QAM Jardiance 10 mg Tablet 10 mg PO DIRECTED PRN (Reason: IF BSG >200) oxycodone 5 mg Tablet 5 mg PO Q8H PRN (Reason: moderate-severe pain) Qty: 6 0RF pantoprazole 40 mg Tablet,Delayed Release (Dr/Ec) 40 mg PO QAM Qty: 14 0RF Discharge Orders: Discharge Order (Routine); Ordered 11/05/22 Ordered By: Bushra Hebert/Other Patient Handouts: Managing Type 2 Diabetes, Treating Group B Strep, Pancreatitis Acute Dc, ED Bacteremia, Suspected (Adult) Admission Data Admit Date/Time: 11/03/22 02:57 Attending Provider: Frank Mazariegos Admit Provider: Aron Pompa Primary Care Provider: PCP,NO Other Providers: Rosa Maria Myrick ; Tessie Horowitz ; Fabián Diaz ; Judi Lyle ; Tiffanie Graf ; Kamla Felix ; Maeve Paredes ; Nanda Vasquez ; Jong Chavez ; Kenya Murillo Other Interventions: Discharge Summary Assessment (RN) Last Done: 11/05/22 13:33 Supervising Physician Co-Signing Physician Notes I personally examined the patient and verified all garcia points of history and exam, discussed case, and agree with decision making with Dr Diallo discussion with assistance of medical physics professor feels up to going home vitals noted nad heent nc at mmm breathing unlabored no accessory muscles good effort skin no rashes no pallor or icterus pancreatitis - improving. safe for home, outpatient follow-up gram (+) bacteremia - repeat Cx NGTD, echo without vegetation. 14 days total of Rocephingot dose #3 todayset up at [facility] for 11 more doses starting tomorrow anticoagulated on warfarin otherwise as above, ongoing close follow-up with PCP Resident Activity Tracking Resident Involvement: Resident Care Provided Care Provided: Adult Hospital Medicine
[2022-11-05] MEDS: cefTRIAXone SODIUM 2,000 MG in DEXTROSE 5% 50 ML IV SCH (13:42)
[2022-11-05] MEDS: WARFARIN SOD 7.5 MG TAB PO SCH (16:05)
--- NOTE | 2022-11-05 18:10 | Billing Data ---
Date of Service November 05, 2022 Coding Level of Care Code 44663 IN/OBS DISCH 30 MIN/LESS
--- NOTE | 2022-11-07 13:38 | Coding Query ---
CODING QUERY To promote full compliance with coding requirements relating to patient care, provider participation is requested in all cases of cloth grader supervisor uncertainty. Please assist us with the question(s) below: Coding Question(s): In the H&P, the supervising physician documents the acute pancreatitis as Possibly medication induced - patient on Jardiance. However, this documentation drops off after the H&P and is not further documented. Please specify, if known, the cause of the acute pancreatitis. Physician's Response(s): ( x) Acute pancreatitis, unspecified ( ) Acute pancreatitis, adverse effect of insulin and oral hypoglycemic drugs ( ) Acute pancreatitis, possibly medication induced Ruled Out ( ) Other, please specify Thank you Kenya Demarco Principal Diagnosis: "that condition established after study, to be chiefly responsible for occasioning the admission of the patient to the hospital for care." Co-Existing Principal Diagnosis: "when two or more diagnoses equally meet the criteria for principal diagnosis as determined by the circumstances of admission, diagnostic work up, and/or therapy provided, and the Alphabetic Index, Tabular List, or another coding guideline does not provide sequencing direction, any one of the diagnoses may be sequenced first." "When the physician has documented what appears to be a current diagnosis in the body of the record, but has not included the diagnosis in the final diagnostic statement, the physician should be asked whether the diagnosis should be added." (Source Coding Clinic 2 QTR90. p3-4) ANGELO
== END 2022-11-05 16:30 | disposition home or self-care (01) | DRG 438 ==
LOC: ED 23:34 → EDINP 11-03 02:57 → SUATTDRO 11-03 02:57 → 2N 11-03 08:11

== ENCOUNTER 2023-07-26 10:51 | Inpatient (IN) ==
[2023-07-26] MEDS: SODIUM CHLORIDE 0.9% 1,000 ML IV ONE (11:39)
[2023-07-26] MEDS: ONDANSETRON INJ 2 MG/ML 2 ML VIAL IV STA (11:39)
[2023-07-26] MEDS: MoRPHine SULFATE 4 MG/ML 1 ML CARP\\VIAL IV STA (11:39)
--- NOTE | 2023-07-26 11:55 | Emergency Department Note ---
History of Present Illness General Chief complaint: Flu Like Symptoms Stated complaint: NAUSEOUS/FEVER Time Seen by Provider: 07/26/23 11:23 Source: patient History of Present Illness Provider complaint: Nausea abdominal pain Onset (ago): hour(s) 9 Location: abdomen Maximum Pain Intensity: 7 Current Pain Intensity: 7 Quality: + stabbing and + sharp Relieved By: + none Exacerbated By: + none Associated symptoms: + malaise and + nausea/vomiting 62-year-old female presents to the emergency department with son who is translating. Patient is [place]-speaking. Patient started having nausea and abdominal pain started 2 AM. Patient on Coumadin. No falls or traumas. Nausea and vomiting. No hematemesis coffee-ground emesis or bilious vomiting. No melena hematochezia. No hematuria or dysuria. No chest pain. Home Medications Medication Instructions Recorded Confirmed Type furosemide 40 mg tablet 0 mg PO QAM 10/03/20 07/26/23 History empagliflozin 10 mg tablet 0 mg PO QAM 05/27/22 07/26/23 History (Jardiance) spironolactone 100 mg tablet 0 mg PO QAM 05/27/22 07/26/23 History oxycodone 5 mg tablet 0 mg PO Q6H PRN moderate-severe 01/09/23 07/26/23 History pain vitamin E 400 unit tablet 400 unit PO QAM 01/09/23 07/26/23 History esomeprazole magnesium 20 mg 20 mg PO QAM 02/24/23 07/26/23 History tablet,delayed release (Nexium 24HR) warfarin 5 mg tablet See Rx Instructions PO QPM 06/26/23 07/26/23 History pantoprazole 40 mg tablet,delayed 40 mg PO BID 07/16/23 07/26/23 History release dapagliflozin propanediol 10 mg 10 mg PO DAILY 07/26/23 07/26/23 History tablet (Farxiga) gabapentin 100 mg capsule 100 mg PO UD 07/26/23 07/26/23 History gabapentin 300 mg capsule 300 mg PO UD 07/26/23 07/26/23 History ondansetron 4 mg disintegrating 4 mg PO TID PRN n/v 07/26/23 07/26/23 History tablet Allergies Allergy/AdvReac Type Severity Reaction Status Date / Time menthol Allergy Severe Anaphylaxis Verified 07/01/23 14:36 mint Allergy Severe Anaphylaxis Verified 07/01/23 14:36 Past Med/Surg History Medical History Hx of sepsis Hx of small bowel obstruction Hx of Lyme disease treated, no current issues Hx of hepatitis C dx in [place] in 2019 during a vacation - son states patient did have treatment in the past unsure if it was October 2020 or October 2021. Edema bilateral legs, rare Hypothyroidism hx of taking levothyroxine in November 2021 -- no longer takes. Ascites no longer gets para's , on diurectics Venous stasis dermatitis of both lower extremities Portal vein thrombosis (dx in 2020) currently on warfarin. 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 Communication Tools: IPad and Other Actuarial Associate Required: Yes Beliefs That Will Affect Care: None marital status: Single marital status details: from ; he lives in [facility]; he has HepC Current Living Situation: Family Current Living Situation Comment: lives with son in an apartment current occupational status: retired How many Children do You have: 2 other: In [place] and [place] 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; 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[facility] x [facility] year Feels Safe at Home: Yes Assistive Devices: Glasses Physical Exam Vital Signs Vital Signs - 24 hr 07/26/23 11:05 07/26/23 11:16 07/26/23 11:31 Temperature 37.3 C Temperature Source Oral Pulse Rate 96 H 95 H 95 H Pulse Rate from SpO2 Sensor 95 H Respiratory Rate 18 16 16 Respiratory Effort / Characteristics Spontaneous Respiratory Depth Normal Blood Pressure 124/76 Blood Pressure Mean 92 Pulse Oximetry 99 94 Oxygen Delivery Method Room Air Oxygen Flow Rate Sepsis Recent Fever Within 48 Hours Yes Sepsis New/Unexplained Change in Mental Status No Sepsis Action Taken by Nursing No Action Required 07/26/23 11:32 07/26/23 11:58 07/26/23 12:00 Temperature Temperature Source Pulse Rate 95 H 94 H Pulse Rate from SpO2 Sensor 94 H Respiratory Rate 15 Respiratory Effort / Characteristics Respiratory Depth Blood Pressure Blood Pressure Mean Pulse Oximetry 96 86 L Oxygen Delivery Method Nasal Cannula Room Air Oxygen Flow Rate 2 Sepsis Recent Fever Within 48 Hours Sepsis New/Unexplained Change in Mental Status Sepsis Action Taken by Nursing 07/26/23 12:00 07/26/23 12:30 07/26/23 13:00 Temperature Temperature Source Pulse Rate 91 H 89 Pulse Rate from SpO2 Sensor 91 H 89 Respiratory Rate 16 16 Respiratory Effort / Characteristics Respiratory Depth Blood Pressure 155/87 H Blood Pressure Mean 95 Pulse Oximetry 96 95 Oxygen Delivery Method Nasal Cannula Room Air Oxygen Flow Rate 2 Sepsis Recent Fever Within 48 Hours Sepsis New/Unexplained Change in Mental Status Sepsis Action Taken by Nursing 07/26/23 15:34 07/26/23 16:00 07/26/23 17:00 Temperature Temperature Source Pulse Rate 92 H 95 H 93 H Pulse Rate from SpO2 Sensor 95 H Respiratory Rate 18 22 22 Respiratory Effort / Characteristics Respiratory Depth Blood Pressure 152/83 H 167/88 H 169/86 H Blood Pressure Mean 106 114 113 Pulse Oximetry 94 92 96 Oxygen Delivery Method Nasal Cannula Oxygen Flow Rate 2 Sepsis Recent Fever Within 48 Hours Sepsis New/Unexplained Change in Mental Status Sepsis Action Taken by Nursing 07/26/23 17:06 Temperature Temperature Source Pulse Rate 94 H Pulse Rate from SpO2 Sensor Respiratory Rate Respiratory Effort / Characteristics Respiratory Depth Blood Pressure Blood Pressure Mean Pulse Oximetry Oxygen Delivery Method Oxygen Flow Rate Sepsis Recent Fever Within 48 Hours Sepsis New/Unexplained Change in Mental Status Sepsis Action Taken by Nursing Physical Exam HENT: Exam performed. -Head: Normocephalic and atraumatic. -Right Ear: External ear normal. No mastoid erythema -Left Ear: External ear normal. No mastoid erythema -Mouth/Throat: The oropharynx is clear and moist. No trismus in the jaw. No dental abscesses or uvula swelling. No oropharyngeal exudate or tonsillar abscesses. EYES: Conjunctivae and EOM are normal. Pupils are equal, round, and reactive to light. Right eye exhibits no discharge. Left eye exhibits no discharge. No scleral icterus. NECK: Normal range of motion. Neck supple. No JVD present. No spinous process tenderness present. CV: Normal rate, regular rhythm, normal heart sounds and intact distal pulses. There is no peripheral edema. Palpable radial pulses bue. PULM/CHEST: Effort normal and breath sounds normal. No respiratory distress. No stridor. She has no wheezes. She has no rales. ABD: The abdomen is soft. No mass is present. There is tenderness to palpation of the epigastric area. There is no rebound, no guarding MUSC/SKEL: Normal range of motion. There is no peripheral edema, tenderness or deformity. LYMPH: No cervical adenopathy. NEURO: Motor and sensation grossly intact Course Course 1123: The patient was evaluated in room C7. A complete history and physical exam was performed Cardiac monitoring: An order was placed for continuous cardiac monitoring. The monitor shows a rate of 90 with sinus rhythm interpreted by vt 1605: Vital signs stable. Labs show white blood cell count of 5.7 hemoglobin 14.5 INR 1.9 venous pH 7.33 venous pCO2 of 42. Creatinine 0.39. Magnesium 1.6 total bilirubin 2.5. Total bilirubin November 2022 was 2.4. Direct bilirubin 0.6 AST 50 high-sensitivity troponin negative procalcitonin within normal limits. Urinalysis [employer] respiratory negative. CT of the and pelvis shows a pleural effusion on the right. There is no liver that cirrhotic morphology. There is nonocclusive thrombus in the main portal vein which is new from the previous CT however the patient's son at bedside states they are aware of this and that is why the patient is being treated with Coumadin. Discussed the case with Dr. Waddell, will treat the patient for possible community-acquired pneumonia given her large pleural effusion. Rocephin and azithromycin ordered for the patient. Patient be admitted to his team. Administered Medications Discontinued Medications Azithromycin (Azithromycin 250 Mg Tab) 500 mg PO NOW ONE Stop: 07/26/23 16:05 Last Admin: 07/26/23 16:34 Dose: 500 mg Documented By: [facility] Sodium Chloride (Nss) 1,000 mls @ 999 mls/hr IV .Q1H1M ONE Stop: 07/26/23 12:32 Last Admin: 07/26/23 11:39 Dose: 999 mls/hr Documented By: ARS Ceftriaxone Sodium (Rocephin) 2,000 mg in 50 mls @ 100 mls/hr IV NOW STA Stop: 07/26/23 16:33 Last Admin: 07/26/23 16:33 Dose: 100 mls/hr Documented By: AMIE Pantoprazole Sodium 40 mg/ (Syringe) 10 mls @ 5 mls/min IV NOW STA Stop: 07/26/23 16:55 Last Admin: 07/26/23 17:06 Dose: 5 mls/min Documented By: UMBERTO Famotidine (Pepcid 20mg Iv Push) 20 mg in 5 mls @ 2.5 mls/min IV NOW STA Stop: 07/26/23 16:51 Last Admin: 07/26/23 17:06 Dose: 2.5 mls/min Documented By: UMBERTO Ioversol (Optiray 320 100ml) 95 ml IV ONCE ONE Stop: 07/26/23 12:47 Last Admin: 07/26/23 12:46 Dose: 95 ml Documented By: DOMINGUEZ Morphine Sulfate (Morphine Sulfate 4 Mg/Ml 1 Ml Carp\Vial) 4 mg IV NOW STA Stop: 07/26/23 11:33 Last Admin: 07/26/23 11:39 Dose: 4 mg Documented By: FIDELIA Ondansetron HCl (Ondansetron Inj 2 Mg/Ml 2 Ml Vial) 4 mg IV NOW STA Stop: 07/26/23 11:33 Last Admin: 07/26/23 11:39 Dose: 4 mg Documented By: FIDELIA Medical Decision Making Laboratory Data Attestation: I reviewed the patient's lab results. 07/26/23 11:29 07/26/23 11:29 Lab Results 07/26/23 07/26/23 07/26/23 Range/Units 11:29 12:36 13:13 WBC 5.70 (4.8-10.8) K/ul RBC 4.79 (4.20-5.40) M/uL Hgb 14.5 (12.0-16.0) g/dl Hct 42.7 (37.0-47.0) % MCV 89.1 (80.0-100.0) fL MCH 30.3 (25.0-34.0) pg MCHC 34.0 (32.0-36.0) g/dL RDW Std Deviation 48.6 H (36.4-46.3) fL RDW Coeff of Meg 14.9 H (11.5-14.5) % Plt Count 44 L (130-400) K/uL Immature Gran % (Auto) 0.4 % Neut % (Auto) 85.5 % Lymph % (Auto) 7.0 % Traill % (Auto) 5.1 % Eos % (Auto) 1.6 % Baso % (Auto) 0.4 % Neut # (Auto) 4.88 (1.40-6.50) K/uL Lymph # (Auto) 0.40 L (1.20-3.40) K/uL Traill # (Auto) 0.29 (0.11-0.59) K/uL Eos # (Auto) 0.09 (0.00-0.50) K/uL Baso # (Auto) 0.02 (0.00-0.20) K/uL Immature Gran # (Auto) 0.02 (0.01-0.20) K/uL PT 19.2 H (9.0-12.0) Seconds INR 1.9 H (0.9-1.1) APTT 34 H (21-31) Seconds PTT Ratio 1.3 VBG pH 7.33 L (7.36-7.41) VBG pCO2 42 (38-50) mmHg VBG pO2 53 mmHg VBG HCO3 22 mmol/L VBG O2 Saturation 85.8 % VBG Base Excess -3.7 mEq/L Sodium 134 L (136-145) mmol/L Potassium 3.8 (3.5-5.1) mmol/L Chloride 104 (98-107) mmol/L Carbon Dioxide 22 (21-32) mmol/L Anion Gap 8 (3-11) BUN 14 (6-23) mg/dl Creatinine 0.39 L (0.6-1.2) mg/dl Est Cr Clr Drug Dosing 181.7 ml/min Est GFR ( Amer) 129.6 ml/min Est GFR (Non-Af Amer) 111.8 ml/min BUN/Creatinine Ratio 35.9 H (10-20) Glucose 186 H (70-99(Fasting)) mg/dl Lactate 1.4 (0.4-2.0) mmol/L Calcium 7.8 L (8.6-10.3) mg/dl Magnesium 1.6 L (1.7-2.4) mg/dl Total Bilirubin 2.5 H (0.2-1.0) mg/dl Direct Bilirubin 0.6 H (0-0.2) mg/dl AST 50 H (13-39) U/L ALT 31 (7-52) U/L Alkaline Phosphatase 111 H (34-104) U/L Troponin I High Sens 4.1 (0-14) pg/ml Total Protein 6.9 (6.0-8.3) gm/dl Albumin 3.4 (3.4-5.0) gm/dl Procalcitonin 0.06 (0-0.5) ng/ml TSH (0.300-4.500) uIu/ml Urine Color Urine Appearance (Clear) Urine pH (4.5-7.5) Ur Specific Fork (1.000-1.030) Urine Protein (Negative) Urine Glucose (UA) (Negative) Urine Ketones (Negative) Urine Blood (Negative) Urine Nitrite (Negative) Urine Bilirubin (Negative) Urine Urobilinogen (Negative) Ur Leukocyte Esterase (Negative) Adenovirus (PCR) Not Detected (NotDetected) B. pertussis DNA (PCR) Not Detected (NotDetected) B.parapertussis DNA PCR Not Detected (NotDetected) C. pneumoniae DNA (PCR) Not Detected (NotDetected) Coronavirus OC43 (PCR) Not Detected (NotDetected) Coronavirus HKU1 (PCR) Not Detected (NotDetected) Coronavirus 229E (PCR) Not Detected (NotDetected) SARS-CoV-2 (PCR) Not Detected (NotDetected) Coronavirus NL63 (PCR) Not Detected (NotDetected) Human Metapneumovir PCR Not Detected (NotDetected) Influenza Type A (PCR) Not Detected (NotDetected) Influenza Type B (PCR) Not Detected (NotDetected) M. pneumoniae (PCR) Not Detected (NotDetected) Parainfluenza 1 (PCR) Not Detected (NotDetected) Parainfluenza 2 (PCR) Not Detected (NotDetected) Parainfluenza 3 (PCR) Not Detected (NotDetected) Parainfluenza 4 (PCR) Not Detected (NotDetected) RSV (PCR) Not Detected (NotDetected) Entero/Rhino (PCR) Not Detected (NotDetected) 07/26/23 07/26/23 Range/Units 14:33 17:48 WBC (4.8-10.8) K/ul RBC (4.20-5.40) M/uL Hgb (12.0-16.0) g/dl Hct (37.0-47.0) % MCV (80.0-100.0) fL MCH (25.0-34.0) pg MCHC (32.0-36.0) g/dL RDW Std Deviation (36.4-46.3) fL RDW Coeff of Meg (11.5-14.5) % Plt Count (130-400) K/uL Immature Gran % (Auto) % Neut % (Auto) % Lymph % (Auto) % Traill % (Auto) % Eos % (Auto) % Baso % (Auto) % Neut # (Auto) (1.40-6.50) K/uL Lymph # (Auto) (1.20-3.40) K/uL Traill # (Auto) (0.11-0.59) K/uL Eos # (Auto) (0.00-0.50) K/uL Baso # (Auto) (0.00-0.20) K/uL Immature Gran # (Auto) (0.01-0.20) K/uL PT (9.0-12.0) Seconds INR (0.9-1.1) APTT (21-31) Seconds PTT Ratio VBG pH (7.36-7.41) VBG pCO2 (38-50) mmHg VBG pO2 mmHg VBG HCO3 mmol/L VBG O2 Saturation % VBG Base Excess mEq/L Sodium (136-145) mmol/L Potassium (3.5-5.1) mmol/L Chloride (98-107) mmol/L Carbon Dioxide (21-32) mmol/L Anion Gap (3-11) BUN (6-23) mg/dl Creatinine (0.6-1.2) mg/dl Est Cr Clr Drug Dosing ml/min Est GFR ( Amer) ml/min Est GFR (Non-Af Amer) ml/min BUN/Creatinine Ratio (10-20) Glucose (70-99(Fasting)) mg/dl Lactate (0.4-2.0) mmol/L Calcium (8.6-10.3) mg/dl Magnesium (1.7-2.4) mg/dl Total Bilirubin (0.2-1.0) mg/dl Direct Bilirubin (0-0.2) mg/dl AST (13-39) U/L ALT (7-52) U/L Alkaline Phosphatase (34-104) U/L Troponin I High Sens 4.1 (0-14) pg/ml Total Protein (6.0-8.3) gm/dl Albumin (3.4-5.0) gm/dl Procalcitonin (0-0.5) ng/ml TSH 2.123 (0.300-4.500) uIu/ml Urine Color Yellow Urine Appearance Clear (Clear) Urine pH 5.0 (4.5-7.5) Ur Specific Fork > 1.045 H (1.000-1.030) Urine Protein Negative (Negative) Urine Glucose (UA) 3+ H (Negative) Urine Ketones 2+ H (Negative) Urine Blood Negative (Negative) Urine Nitrite Negative (Negative) Urine Bilirubin Negative (Negative) Urine Urobilinogen Negative (Negative) Ur Leukocyte Esterase Negative (Negative) Adenovirus (PCR) (NotDetected) B. pertussis DNA (PCR) (NotDetected) B.parapertussis DNA PCR (NotDetected) C. pneumoniae DNA (PCR) (NotDetected) Coronavirus OC43 (PCR) (NotDetected) Coronavirus HKU1 (PCR) (NotDetected) Coronavirus 229E (PCR) (NotDetected) SARS-CoV-2 (PCR) (NotDetected) Coronavirus NL63 (PCR) (NotDetected) Human Metapneumovir PCR (NotDetected) Influenza Type A (PCR) (NotDetected) Influenza Type B (PCR) (NotDetected) M. pneumoniae (PCR) (NotDetected) Parainfluenza 1 (PCR) (NotDetected) Parainfluenza 2 (PCR) (NotDetected) Parainfluenza 3 (PCR) (NotDetected) Parainfluenza 4 (PCR) (NotDetected) RSV (PCR) (NotDetected) Entero/Rhino (PCR) (NotDetected) Imaging Data Attestation: I personally reviewed and interpreted this imaging study as follows: My Impression: CT abdomen pelvis: Large right-sided pleural effusion Chest x-ray: Chest x-ray negative. Airway clear. No pneumothorax. No consolidation. No cardiomegaly or cephalization.. No free air under the diaphragm. No fractures of the skeletal structures. Radiologist's Impression: Chest X-Ray 07/26/23 11:32 SINGLE VIEW CHEST CLINICAL HISTORY: Sepsis FINDINGS: An AP, portable, upright chest radiograph is compared to study dated 12/18/2022. The heart is enlarged. There is pulmonary vascular congestion. There is a layering right pleural effusion and bibasilar consolidation. No pneumothorax is seen. The skeletal structures are osteopenic. The bony thorax is grossly intact. Advanced arthritic change is noted in the right shoulder. IMPRESSION: 1. Cardiomegaly with evidence of congestive failure. 2. Layering right pleural effusion and bibasilar consolidation. The airspace opacities could represent atelectasis and/or pulmonary edema. Correlate clinically for evidence of a superimposed pneumonia. Radiographic follow-up to resolution is recommended. ACT 112: Negative or not required by law. Electronically signed by: Juma Daley M.D. 07/26/2023 12:51 PM Abdomen/Pelvis CT 07/26/23 11:33 CT SCAN OF THE ABDOMEN AND PELVIS WITH IV CONTRAST CLINICAL HISTORY: Nausea. Epigastric abdominal pain. COMPARISON STUDY: Abdominal CT dated 11/03/2022. TECHNIQUE: Following the IV administration of 95 cc of Optiray 320, CT scan of the abdomen and pelvis is performed from the lung bases to the proximal femora. Images are reviewed in the axial, sagittal, and coronal planes. IV contrast was administered without complication. A dose lowering technique was utilized adhering to the principles of ALARA. CT DOSE: 1408.44 mGy.cm FINDINGS: Lung bases: The heart is enlarged and without pericardial effusion. There is a [id number] right pleural effusion with dependent atelectasis. Trace pleural effusion is seen on the left. There is a small hiatal hernia. Large esophageal varices are noted. There is an indeterminant 1.6 cm enhancing nodule in the inferior aspect of the right breast seen on image #38. Liver: The contrast-enhanced liver is cirrhotic morphology and heterogeneous in attenuation. There is no intrahepatic biliary ductal dilatation. Nonocclusive portal venous thrombus is seen on axial image #111. Nonocclusive thrombus is seen within the intrahepatic left lobe portal vein as seen on image 88. There is trace nonocclusive thrombus in the superior mesenteric vein seen on image #136. Hepatic veins are Patent. There is recanalization of the apparent umbilical vein. Gallbladder: The gallbladder is mildly distended but otherwise normal in appearance. Spleen: The spleen is markedly enlarged, measuring 19.7 cm in length. There are large perigastric varices, as well as perisplenic collaterals. Pancreas: There is peripancreatic infiltration and fluid. The pancreas enhances homogeneously any duct is normal in caliber. Adrenal glands: Unremarkable. Kidneys: The contrast enhanced kidneys are normal in size and without hydronephrosis. The kidneys enhance symmetrically. Abdominal vasculature: The abdominal aorta is normal in course and caliber noting mild to moderate atherosclerotic calcification. Bowel: The gastric mucosa appears mildly thickened and hyperemic. There Is no bowel obstruction. Wall thickening of the right colon likely represents portal colopathy. The appendix is not visualized. Peritoneum: Mesenteric edema is noted. There is a small volume of abdominopelvic ascites. No intraperitoneal free air seen. Lymphadenopathy: None. Pelvic viscera: The bladder, uterus, and adnexa are normal as visualized. There is fluid within a right inguinal hernia. Skeletal structures: There is mild to moderate lumbosacral spondylosis. Sclerotic change is noted in the sacroiliac joints. No lytic or blastic lesions are seen. IMPRESSION: 1. Cardiomegaly. 2. Pmeob-vt-tdilrwsg right and trace left pleural effusions with dependent atelectasis. These are new from 11/03/2022. 3. The liver is cirrhotic in morphology and heterogeneous in attenuation. 4. Large esophageal varices, marked splenomegaly, a small volume of abdominopelvic ascites, and intra-abdominal collateral vessels indicate portal hypertension. 5. There is nonocclusive thrombus within the main portal vein, the left intrahepatic portal vein, and the superior mesenteric vein. This was not seen previously. 6. The gastric mucosa appears thickened and hyperemic. Correlate clinically for evidence of gastritis. 7. Nonspecific wall thickening and edema of the right colon is similar to previous and favors portal colopathy. Correlate clinically. 8. There is mesenteric edema. Fluid and infiltration is seen around the pancreas, and this may be related to generalized fluid overload/edema. Correlate with clinical and laboratory findings for evidence of pancreatitis. 9. There is an indeterminant 1.6 cm enhancing lesion questioned in the inferior aspect of the right breast. This is not well assessed by CT. Nonemergent/outpatient follow-up with mammography is recommended for further assessment. 10. Additional findings as above. ACT 112: Positive. There are findings on this exam that require communication between the performing entity and the patient following Patient Test Result Information Act ([place] Act 112) guidelines. Electronically signed by: Juma Daley M.D. 07/26/2023 2:[address] 07/26/23 17:19 CT SCAN OF THE BRAIN WITHOUT IV CONTRAST CLINICAL HISTORY: Vertigo. COMPARISON STUDY: No priors. TECHNIQUE: Unenhanced axial CT scan of the brain is performed from the vertex to the skull base. A dose lowering technique was utilized adhering to the principles of ALARA. CT DOSE: 625.8 mGy.cm FINDINGS: Brain parenchyma: There is minimal microangiopathic disease. There is no hemorrhage, mass effect, or evidence of acute territorial ischemia by CT criteria. Duncan-white matter differentiation is preserved. No extra-axial fluid collection is seen. Ventricles, sulci, cisterns: Normal in configuration. Intracranial vasculature: There is atherosclerotic calcification of the cavernous carotid arteries. Calvarium: Unremarkable. Sinuses and mastoids: Findings suggest previous paranasal sinus surgery. There is trace mucosal thickening within the sphenoid sinuses. The mastoid air cells are well pneumatized. Orbits: The bony orbits are grossly intact. IMPRESSION: There is no hemorrhage, mass effect, or evidence of acute territorial ischemia by CT criteria. ACT 112: Negative or not required by law. Electronically signed by: Juma Daley M.D. 07/26/2023 6:14 PM ECG Data Attestation: I personally reviewed and interpreted this ECG as follows: Indication: + abdominal pain Rate (beats per minute): 95 Rhythm: + normal sinus ECG Intervals/blocks: + Normal QRS, + Normal [place] and + Normal QT-c ECG ST segments: + Normal ST segments ECG Findings: + LVH MDM Narrative 1123: The patient was evaluated in room C7. A complete history and physical exam was performed Cardiac monitoring: An order was placed for continuous cardiac monitoring. The monitor shows a rate of 90 with sinus rhythm interpreted by me 1605: Vital signs stable. Labs show white blood cell count of 5.7 hemoglobin 14.5 INR 1.9 venous pH 7.33 venous pCO2 of 42. Creatinine 0.39. Magnesium 1.6 total bilirubin 2.5. Total bilirubin November 2022 was 2.4. Direct bilirubin 0.6 AST 50 high-sensitivity troponin negative procalcitonin within normal limits. Urinalysis [employer] respiratory negative. CT of the and pelvis shows a pleural effusion on the right. There is no liver that cirrhotic morphology. There is nonocclusive thrombus in the main portal vein which is new from the previous CT however the patient's son at bedside states they are aware of this and that is why the patient is being treated with Coumadin. Discussed the case with Dr. Waddell, will treat the patient for possible community-acquired pneumonia given her large pleural effusion. Rocephin and azithromycin ordered for the patient. Patient be admitted to his team. Impression & Plan Pneumonia, Cirrhosis of liver Discharge Plan Visit Data Chief Complaint: Flu Like Symptoms Stated Complaint: NAUSEOUS/FEVER ED Provider: Francisco London Discharge Problem: Pneumonia, Cirrhosis of liver Patient Disposition: Admitted As Inpatient Forms Stand Alone Forms: My [facility] Prescriptions Prescriptions: No Action warfarin 5 mg tablet See Rx Instructions PO QPM Rx Instructions: 7.5mg daily per [facility] orally daily in the evening; pantoprazole 40 mg tablet,delayed release (DR/EC) 40 mg PO BID Rx Instructions: x 14 days (from 07/03/23) esomeprazole magnesium [Nexium 24HR] 20 mg tablet,delayed release (DR/EC) 20 mg PO QAM Rx Instructions: otc, unable to verify furosemide 40 mg tablet 0 mg PO QAM Rx Instructions: last filled in june 2022. Original directions: 40 mg daily spironolactone 100 mg Tablet 0 mg PO QAM Rx Instructions: last filled February 14, 2023. Original directions: 100 mg daily Jardiance 10 mg Tablet 0 mg PO QAM Rx Instructions: on hold at pharmacy vitamin E 400 unit Tablet 400 unit PO QAM Rx Instructions: otc unable to verify oxycodone 5 mg tablet 0 mg PO Q6H PRN (Reason: moderate-severe pain) Rx Instructions: Filled July 2022 gabapentin 300 mg capsule 300 mg PO UD Rx Instructions: three times daily after completing 100 mg dose(s) for 7 days gabapentin 100 mg capsule 100 mg PO UD Rx Instructions: taper up to 300 mg ondansetron 4 mg tablet,disintegrating 4 mg PO TID PRN (Reason: n/v) dapagliflozin propanediol [Farxiga] 10 mg tablet 10 mg PO DAILY Referrals Referrals: Carlos Alberto Guerra DO [Primary Care Provider] - Discharge Problem: Pneumonia Qualifiers: Pneumonia type: due to unspecified organism Laterality: unspecified laterality Lung location: unspecified part of lung Qualified Code(s): J18.9 - Pneumonia, unspecified organism
[2023-07-26 11:57] LABS: INR 1.9 (0.9-1.1); Partial Thromboplastin Ratio 1.3; Partial Thromboplastin Time 34 Seconds (21-31); Prothrombin Time 19.2 Seconds (9.0-12.0)
[2023-07-26 12:07] LABS: Albumin Level 3.4 gm/dl (3.4-5.0); BUN Creatinine Ratio 35.9 (10-20); Bilirubin Direct 0.6 mg/dl (0-0.2); Bilirubin,Total 2.5 mg/dl (0.2-1.0); Creatinine Clr Calc Pharmacy 181.7 ml/min; Est GFR (African American) 129.6 ml/min; Est GFR (Non-African American) 111.8 ml/min; Magnesium 1.6 mg/dl (1.7-2.4); Potassium 3.8 mmol/L (3.5-5.1); Total Protein 6.9 gm/dl (6.0-8.3)
[2023-07-26 12:08] LABS: Hematocrit (blood only) 42.7 % (37.0-47.0); Hemoglobin 14.5 g/dl (12.0-16.0); Mean Corpuscular Hemoglobin 30.3 pg (25.0-34.0); Mean Corpuscular Volume 89.1 fL (80.0-100.0); Platelet Count 44 K/uL (130-400); RDW Coefficient of Variation 14.9 % (11.5-14.5); RDW Standard Deviation 48.6 fL (36.4-46.3); Red Blood Count 4.79 M/uL (4.20-5.40)
[2023-07-26 12:11] LABS: Basophils # (auto) 0.02 K/uL (0.00-0.20); Basophils % (auto) 0.4 %; Eosinophils # (auto) 0.09 K/uL (0.00-0.50); Eosinophils % (auto) 1.6 %; Immature Granulocytes # (auto) 0.02 K/uL (0.01-0.20); Immature Granulocytes % (auto) 0.4 %; Monocytes # (auto) 0.29 K/uL (0.11-0.59); Monocytes % (auto) 5.1 %; Neutrophils # (auto) 4.88 K/uL (1.40-6.50); Neutrophils % (auto) 85.5 %
[2023-07-26 12:12] LABS: Troponin I High Sensitivity 4.1 pg/ml (0-14)
[2023-07-26] MEDS: OPTIRAY 320 100ml IV ONE (12:46)
--- NOTE | 2023-07-26 12:54 | XRay Report ---
SINGLE VIEW CHEST CLINICAL HISTORY: Sepsis FINDINGS: An AP, portable, upright chest radiograph is compared to study dated 12/18/2022. The heart i s enlarged. There is pulmonary vascular congestion. There is a layering right pleural effusion and bi basilar consolidation. No pneumothorax is seen. The skeletal structures are osteopenic. The bony thor ax is grossly intact. Advanced arthritic change is noted in the right shoulder. IMPRESSION: 1. Cardiomegaly with evidence of congestive failure. 2. Layering right pleural effusion and bibasilar consolidation. The airspace opacities could represen t atelectasis and/or pulmonary edema. Correlate clinically for evidence of a superimposed pneumonia. Radiographic follow-up to resolution is recommended. ACT 112: Negative or not required by law. Electronically signed by: Juma Daley M.D. 07/26/2023 12:51 PM
[2023-07-26 13:19] LABS: Calcium 7.8 mg/dl (8.6-10.3)
[2023-07-26 13:27] LABS: Base Excess VBG -3.7 mEq/L; HCO3 VBG 22 mmol/L; Oxygen Saturation VBG 85.8 %; PCO2 VBG 42 mmHg (38-50); PO2 VBG 53 mmHg; pH VBG 7.33 (7.36-7.41)
--- NOTE | 2023-07-26 14:05 | CT Scan Report ---
CT SCAN OF THE ABDOMEN AND PELVIS WITH IV CONTRAST CLINICAL HISTORY: Nausea. Epigastric abdominal pain. COMPARISON STUDY: Abdominal CT dated 11/03/2022. TECHNIQUE: Following the IV administration of 95 cc of Optiray 320, CT scan of the abdomen and pelvi s is performed from the lung bases to the proximal femora. Images are reviewed in the axial, sagittal , and coronal planes. IV contrast was administered without complication. A dose lowering technique wa s utilized adhering to the principles of ALARA. CT DOSE: 1408.44 mGy.cm FINDINGS: Lung bases: The heart is enlarged and without pericardial effusion. There is a eoghc-ao-ekxpuivz righ t pleural effusion with dependent atelectasis. Trace pleural effusion is seen on the left. There is a small hiatal hernia. Large esophageal varices are noted. There is an indeterminant 1.6 cm enhancing nodule in the inferior aspect of the right breast seen on image #38. Liver: The contrast-enhanced liver is cirrhotic morphology and heterogeneous in attenuation. There is no intrahepatic biliary ductal dilatation. Nonocclusive portal venous thrombus is seen on axial imag e #111. Nonocclusive thrombus is seen within the intrahepatic left lobe portal vein as seen on image 88. There is trace nonocclusive thrombus in the superior mesenteric vein seen on image #136. Hepatic veins are Patent. There is recanalization of the apparent umbilical vein. Gallbladder: The gallbladder is mildly distended but otherwise normal in appearance. Spleen: The spleen is markedly enlarged, measuring 19.7 cm in length. There are large perigastric salvatore ices, as well as perisplenic collaterals. Pancreas: There is peripancreatic infiltration and fluid. The pancreas enhances homogeneously any marita t is normal in caliber. Adrenal glands: Unremarkable. Kidneys: The contrast enhanced kidneys are normal in size and without hydronephrosis. The kidneys enh ance symmetrically. Abdominal vasculature: The abdominal aorta is normal in course and caliber noting mild to moderate at herosclerotic calcification. Bowel: The gastric mucosa appears mildly thickened and hyperemic. There Is no bowel obstruction. Wall thickening of the right colon likely represents portal colopathy. The appendix is not visualized. Peritoneum: Mesenteric edema is noted. There is a small volume of abdominopelvic ascites. No intraper itoneal free air seen. Lymphadenopathy: None. Pelvic viscera: The bladder, uterus, and adnexa are normal as visualized. There is fluid within a rig ht inguinal hernia. Skeletal structures: There is mild to moderate lumbosacral spondylosis. Sclerotic change is noted in the sacroiliac joints. No lytic or blastic lesions are seen. IMPRESSION: 1. Cardiomegaly. 2. Yqbsv-mi-ciitwyci right and trace left pleural effusions with dependent atelectasis. These are new from 11/03/2022. 3. The liver is cirrhotic in morphology and heterogeneous in attenuation. 4. Large esophageal varices, marked splenomegaly, a small volume of abdominopelvic ascites, and intra -abdominal collateral vessels indicate portal hypertension. 5. There is nonocclusive thrombus within the main portal vein, the left intrahepatic portal vein, and the superior mesenteric vein. This was not seen previously. 6. The gastric mucosa appears thickened and hyperemic. Correlate clinically for evidence of gastritis . 7. Nonspecific wall thickening and edema of the right colon is similar to previous and favors portal colopathy. Correlate clinically. 8. There is mesenteric edema. Fluid and infiltration is seen around the pancreas, and this may be rel ated to generalized fluid overload/edema. Correlate with clinical and laboratory findings for evidenc e of pancreatitis. 9. There is an indeterminant 1.6 cm enhancing lesion questioned in the inferior aspect of the right b reast. This is not well assessed by CT. Nonemergent/outpatient follow-up with mammography is recommen ded for further assessment. 10. Additional findings as above. ACT 112: Positive. There are findings on this exam that require communication between the performing entity and the patient following Patient Test Result Information Act ([place] Act 112) guidelines. Electronically signed by: Juma Daley M.D. 07/26/2023 2:03 PM
[2023-07-26 14:25] LABS: Adenovirus PCR Not Detected (NotDetected); Bordetella parapertussis PCR Not Detected (NotDetected); Bordetella pertussis PCR Not Detected (NotDetected); Chlamydia pneumoniae PCR Not Detected (NotDetected); Coronavirus 229E PCR Not Detected (NotDetected); Coronavirus CoV-2 (COVID19)PCR Not Detected (NotDetected); Coronavirus HKU1 PCR Not Detected (NotDetected); Coronavirus NL63 PCR Not Detected (NotDetected); Coronavirus OC43PCR Not Detected (NotDetected); Human Metapneumovirus PCR Not Detected (NotDetected); Influenza A PCR Not Detected (NotDetected); Influenza B PCR Not Detected (NotDetected); Mycoplasma pneumoniae PCR Not Detected (NotDetected); Parainfluenza Virus 1 PCR Not Detected (NotDetected); Parainfluenza Virus 2 PCR Not Detected (NotDetected); Parainfluenza Virus 3 PCR Not Detected (NotDetected); Parainfluenza Virus 4 PCR Not Detected (NotDetected); Respiratory Syncytial VirusPCR Not Detected (NotDetected); Rhinovirus/Enterovirus PCR Not Detected (NotDetected)
[2023-07-26 15:03] LABS: Appearance Urine Clear (Clear); Bilirubin Urine Negative (Negative); Blood Urine Negative (Negative); Color Urine Yellow; Glucose Urine UA 3+ (Negative); Ketones Urine 2+ (Negative); Leukocyte Esterase Urine Negative (Negative); Nitrite Urine Negative (Negative); Protein Urine Negative (Negative); Specific Gravity Urine > 1.045 (1.000-1.030); Urobilinogen Urine Negative (Negative)
[2023-07-26] MEDS: cefTRIAXone SODIUM 2,000 MG/50 ML BAG IV STA (16:33)
[2023-07-26] MEDS: AZITHROMYCIN 250 MG TAB PO ONE (16:34)
--- NOTE | 2023-07-26 17:02 | History & Physical Report ---
Date of Service July 26, 2023 Assessment & Plan (1) Helicobacter pylori gastritis: Plan: Most likely cause of her acute presentation - previously diagnosed although she never took the treatment Pantoprazole 40mg IV BID Amoxicillin + clarithromycin for 14 days Consider GI consult if not improving (2) Portal vein thrombosis: Plan: Possible alternative cause of her symptoms although previously diagnosed in 2020 (reason for her warfarin use), reported as new on current CT ?failure of warfarin - possible not the right choice of anticoagulant given her liver cirrhosis it is difficult to tell whether INR raised from cirrhosis or warfarin If no significant improvement of symptoms with IV pantoprazole overnight consider switch to IV heparin (3) Vertigo: Plan: Difficult to ascertain a good history 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 diff PCR needs collecting (5) Pleural effusion, right: Plan: Suspect this is related to her liver cirrhosis Lower suspicion of pneumonia given lack of WBC or significant consolidation on CT (mainly just atelectasis) (6) Abnormal CT of the abdomen: Plan: Thickening on right colon - ?colitis, monitor for ongoing diarrhea Fluid and infiltration around pancreatitis - no elevated lipase to suggest acute pancreatitis, suspect due to overall hypervolemic state (7) Cirrhosis of liver: Plan: Not clearly taking furosemide or spironolactone given fill dates but listed as home medications Recommend restarting as she appears hypervolemic (8) Diabetes: Plan: Hemoglobin A1C 8.3 in January, repeat Hold Farxiga and Jardiance - she should only be on one of these (presumably Farxiga as this was the one most recently prescribed) Novolog: --Goal BSG Range: Low 110 mg/dL, High 140 mg/dL --Correction Factor: 45 mg/dL/unit --Carbohydrate ratio = 15 g/unit --BSGs ACHS if eating, q6h if npo Monitor glucose to determine if needs basal dosing of Lantus (9) Lump of right breast: Plan: Noticed incidentally on CT - correlated to firm lump on exam Discussed with patient need to follow up with mammogram +/- biopsy on discharge Plan VTE Prophylaxis - continue warfarin Diet - Low Na, T2DM Disposition - admit to med/tele Admission and Anticipated Discharge Date Admission Date: July 26, 2023 History of Present Illness Chief Complaint: Generalized myalgias Abdominal pain Primary Care Provider: DO Inessa Talamantes Dorcas is a 62 year old female who presents to the ER with sudden onset abdominal pain followed by generalized myalgias. History obtained with both her son and patient using first [employer] (Indy #[id number]). She reports symptoms started suddenly at 2am this morning with abdominal distension and pain. Throughout the night this was 7-8/10, currently 2-3/10. Constant pain with radiation to her back. Followed by generalized weakness and aching everywhere especially in her joints. Initially had some neck and headache which has now resolved. She reports dizziness when she closes her eyes or moves her head from side to side. Not the room spinning but more unbalanced feeling or the room feels moving. One episode of loose stool this morning which is unusual for her. Prior to this happening she did feel more fatigued around 8pm last night and more bloated around 11pm last night. She was previously diagnosed with h. pylori gastritis but reports never taking the medications for this. Allergies Allergy/AdvReac Type Severity Reaction Status Date / Time menthol Allergy Severe Anaphylaxis Verified 07/01/23 14:36 mint Allergy Severe Anaphylaxis Verified 07/01/23 14:36 Home Medications Medication Instructions Recorded Confirmed Type furosemide 40 mg tablet 0 mg PO QAM 10/03/20 07/26/23 History empagliflozin 10 mg tablet 0 mg PO QAM 05/27/22 07/26/23 History (Jardiance) spironolactone 100 mg tablet 0 mg PO QAM 05/27/22 07/26/23 History oxycodone 5 mg tablet 0 mg PO Q6H PRN moderate-severe 01/09/23 07/26/23 History pain vitamin E 400 unit tablet 400 unit PO QAM 01/09/23 07/26/23 History esomeprazole magnesium 20 mg 20 mg PO QAM 02/24/23 07/26/23 History tablet,delayed release (Nexium 24HR) warfarin 5 mg tablet See Rx Instructions PO QPM 06/26/23 07/26/23 History pantoprazole 40 mg tablet,delayed 40 mg PO BID 07/16/23 07/26/23 History release dapagliflozin propanediol 10 mg 10 mg PO DAILY 07/26/23 07/26/23 History tablet (Farxiga) gabapentin 100 mg capsule 100 mg PO UD 07/26/23 07/26/23 History gabapentin 300 mg capsule 300 mg PO UD 07/26/23 07/26/23 History ondansetron 4 mg disintegrating 4 mg PO TID PRN n/v 07/26/23 07/26/23 History tablet Past Med/Surg History Medical History (Updated 07/27/23 @ 06:19 by Farrukh Waddell MD) Portal vein thrombosis (dx in 2020) currently on warfarin. Hx of sepsis Hx of small bowel obstruction Hx of Lyme disease treated, no current issues Hx of hepatitis C dx in [place] in 2019 during a vacation - [facility] states patient did have treatment in the past unsure if it was October 2020 or October 2021. Edema bilateral legs, rare Hypothyroidism hx of taking levothyroxine in November 2021 -- no longer takes. 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 Communication Tools: IPad and Other Crop Quantitative Geneticist Required: Yes Beliefs That Will Affect Care: None marital status: Single marital status details: from ; he lives in [facility]; he has HepC Current Living Situation: Family Current Living Situation Comment: lives with son in an apartment current occupational status: retired How many Children do You have: 2 Other Information That Helps Us Care for You: No other: In [place]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; 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[facility] x 12 year Feels Safe at Home: Yes Safety Concerns: Feels Safe At This Time Assistive Devices: Glasses Review of Systems Review of Systems: All systems reviewed & are unremarkable except as noted in HPI & below Physical Exam Constitutional: WD/WN, vitals as above Eyes: PERRL, conjunctivae normal, anicteric sclerae EOM intact bilaterally (without diplopira) and + nystagmus (Bilateral on lateral gaze slow beating to right, fast beating to left ) ENMT: external ear and nose normal, oropharynx normal Ears: + unable to visualize TM (right wax); no TM abnormality (left) Respiratory: normal respiratory effort, lungs clear to auscultation Cardiovascular: Rate/Rhythm: regular rate and regular rhythm Heart Sounds: no murmur Extremities: + pedal edema (1+ b/l equal) Gastrointestinal (Abdomen): Inspection/Auscultation: abdomen normal to inspection and + abdomen distended Percussion/Palpation: + abdomen tender (upper abdominal) and abdomen soft; no guarding and abdomen not rigid Musculoskeletal: no cyanosis or clubbing, extremities motor strength 5/5 Skin: no rashes, warm and dry Neurologic: moves all extremities and awake; no focal motor deficits and not confused Speech / Cognition: normal speech Motor/Sensory: no tremor and no pronator drift Psychiatric: A+Ox3, euthymic affect Genitourinary: no CVA tenderness Results & Data Results & Data Vital Signs (Past 12 Hours) Vital Signs Temp Pulse Resp BP Pulse Ox O2 Del Method O2 Flow Rate 07/26/23 16:00 95 H 22 167/88 H 92 07/26/23 15:34 92 H 18 152/83 H 94 07/26/23 13:00 89 16 95 Room Air 07/26/23 12:30 91 H 16 96 Nasal Cannula 2 07/26/23 12:00 155/87 H 07/26/23 12:00 94 H 15 86 L Room Air 07/26/23 11:58 95 H 07/26/23 11:32 96 Nasal Cannula 2 07/26/23 11:31 95 H 16 07/26/23 11:16 95 H 16 94 07/26/23 11:05 37.3 C 96 H 18 124/76 99 Room Air Laboratory Results Abnormal lab results 07/26/23 07/26/23 07/26/23 Range/Units 11:29 12:36 14:33 RDW Std Deviation 48.6 H (36.4-46.3) fL RDW Coeff of Meg 14.9 H (11.5-14.5) % Plt Count 44 L (130-400) K/uL Lymph # (Auto) 0.40 L (1.20-3.40) K/uL PT 19.2 H (9.0-12.0) Seconds INR 1.9 H (0.9-1.1) APTT 34 H (21-31) Seconds VBG pH 7.33 L (7.36-7.41) Sodium 134 L (136-145) mmol/L Creatinine 0.39 L (0.6-1.2) mg/dl BUN/Creatinine Ratio 35.9 H (10-20) Glucose 186 H (70-99(Fasting)) mg/dl Calcium 7.8 L (8.6-10.3) mg/dl Magnesium 1.6 L (1.7-2.4) mg/dl Total Bilirubin 2.5 H (0.2-1.0) mg/dl Direct Bilirubin 0.6 H (0-0.2) mg/dl AST 50 H (13-39) U/L Alkaline Phosphatase 111 H (34-104) U/L Ur Specific [place] > 1.045 H (1.000-1.030) Urine Glucose (UA) 3+ H (Negative) Urine Ketones 2+ H (Negative) Diagnostic Findings SINGLE VIEW CHEST CLINICAL HISTORY: Sepsis FINDINGS: An AP, portable, upright chest radiograph is compared to study dated 12/18/2022. The heart is enlarged. There is pulmonary vascular congestion. There is a layering right pleural effusion and bibasilar consolidation. No pneumothorax is seen. The skeletal structures are osteopenic. The bony thorax is grossly intact. Advanced arthritic change is noted in the right shoulder. IMPRESSION: 1. Cardiomegaly with evidence of congestive failure. 2. Layering right pleural effusion and bibasilar consolidation. The airspace opacities could represent atelectasis and/or pulmonary edema. Correlate clinically for evidence of a superimposed pneumonia. Radiographic follow-up to resolution is recommended. CT SCAN OF THE ABDOMEN AND PELVIS WITH IV CONTRAST CLINICAL HISTORY: Nausea. Epigastric abdominal pain. COMPARISON STUDY: Abdominal CT dated 11/03/2022. TECHNIQUE: Following the IV administration of 95 cc of Optiray 320, CT scan of the abdomen and pelvis is performed from the lung bases to the proximal femora. Images are reviewed in the axial, sagittal, and coronal planes. IV contrast was administered without complication. A dose lowering technique was utilized adhering to the principles of ALARA. CT DOSE: 1408.44 mGy.cm FINDINGS: Lung bases: The heart is enlarged and without pericardial effusion. There is a jxudu-vq-rrocsuqe right pleural effusion with dependent atelectasis. Trace ple ural effusion is seen on the left. There is a small hiatal hernia. Large esophageal varices are noted. There is an indeterminant 1.6 cm enhancing nodule in the inferior aspect of the right breast seen on image #38. Liver: The contrast-enhanced liver is cirrhotic morphology and heterogeneous in attenuation. There is no intrahepatic biliary ductal dilatation. Nonocclusive portal venous thrombus is seen on axial image #111. Nonocclusive thrombus is seen within the intrahepatic left lobe portal vein as seen on image 88. There is trace nonocclusive thrombus in the superior mesenteric vein seen on image #136. Hepatic veins are Patent. There is recanalization of the apparent umbilical vein. Gallbladder: The gallbladder is mildly distended but otherwise normal in appearance. Spleen: The spleen is markedly enlarged, measuring 19.7 cm in length. There are large perigastric varices, as well as perisplenic collaterals. Pancreas: There is peripancreatic infiltration and fluid. The pancreas enhances homogeneously any duct is normal in caliber. Adrenal glands: Unremarkable. Kidneys: The contrast enhanced kidneys are normal in size and without hydronephrosis. The kidneys enhance symmetrically. Abdominal vasculature: The abdominal aorta is normal in course and caliber noting mild to moderate atherosclerotic calcification. Bowel: The gastric mucosa appears mildly thickened and hyperemic. There Is no bowel obstruction. Wall thickening of the right colon likely represents portal colopathy. The appendix is not visualized. Peritoneum: Mesenteric edema is noted. There is a small volume of abdominopelvic ascites. No intraperitoneal free air seen. Lymphadenopathy: None. Pelvic viscera: The bladder, uterus, and adnexa are normal as visualized. There is fluid within a right inguinal hernia. Skeletal structures: There is mild to moderate lumbosacral spondylosis. Sclerotic change is noted in the sacroiliac joints. No lytic or blastic lesions are seen. IMPRESSION: 1. Cardiomegaly. 2. Cepxd-pb-fumtpyhz right and trace left pleural effusions with dependent atelectasis. These are new from 11/03/2022. 3. The liver is cirrhotic in morphology and heterogeneous in attenuation. 4. Large esophageal varices, marked splenomegaly, a small volume of abdominopelvic ascites, and intra-abdominal collateral vessels indicate portal hypertension. 5. There is nonocclusive thrombus within the main portal vein, the left intrahepatic portal vein, and the superior mesenteric vein. This was not seen previously. 6. The gastric mucosa appears thickened and hyperemic. Correlate clinically for evidence of gastritis. 7. Nonspecific wall thickening and edema of the right colon is similar to previous and favors portal colopathy. Correlate clinically. 8. There is mesenteric edema. Fluid and infiltration is seen around the pancreas, and this may be related to generalized fluid overload/edema. Correlate with clinical and laboratory findings for evidence of pancreatitis. 9. There is an indeterminant 1.6 cm enhancing lesion questioned in the inferior aspect of the right breast. This is not well assessed by CT. Nonemergent/outpatient follow-up with mammography is recommended for further assessment. 10. Additional findings as above. Medications Administered ER medications given: Normal saline 1 L bolus Ondansetron 4 mg IV Morphine 4 mg IV Ceftriaxone 2000 mg IV Azithromycin 500 mg p.o. ECG Rate (beats per minute): 95 Rhythm: normal sinus Findings: + other (Widespread T wave flattening) Comparison ECG Date: from (December 18, 2022) Change: no significant change Code Status & VTE Plan Code Status Full VTE Prophylaxis Plan VTE Prophylaxis will be ordered: Yes PG Care Time/CCT Total # of Minutes Spent Total Time Spent with Patient: Total time spent is greater than 50% in coordination of care (as documented) at patient's floor/unit and/or counseling patient: Coding Level of Care Code 57391 INT INP/OBS CARE 375MIN Diagnoses Helicobacter pylori gastritis K29.70; B96.81 Portal vein thrombosis I81 Vertigo R42 Diarrhea R19.7 Pleural effusion, right J90 Abnormal CT of the abdomen R93.5 Cirrhosis of liver K74.60 Type 2 diabetes mellitus without complication, without long-term current use of insulin E11.9 Lump of right breast N63.10
[2023-07-26] MEDS: FAMOTIDINE 20MG IV PUSH 20 MG/5 ML SYR IV STA (17:06)
[2023-07-26] MEDS: PANTOprazole 40 MG in SYRINGE 0 ML IV STA (17:06)
--- NOTE | 2023-07-26 18:16 | CT Scan Report ---
CT SCAN OF THE BRAIN WITHOUT IV CONTRAST CLINICAL HISTORY: Vertigo. COMPARISON STUDY: No priors. TECHNIQUE: Unenhanced axial CT scan of the brain is performed from the vertex to the skull base. A do se lowering technique was utilized adhering to the principles of ALARA. CT DOSE: 625.8 mGy.cm FINDINGS: Brain parenchyma: There is minimal microangiopathic disease. There is no hemorrhage, mass effect, or evidence of acute territorial ischemia by CT criteria. Duncan-white matter differentiation is preserved . No extra-axial fluid collection is seen. Ventricles, sulci, cisterns: Normal in configuration. Intracranial vasculature: There is atherosclerotic calcification of the cavernous carotid arteries. Calvarium: Unremarkable. Sinuses and mastoids: Findings suggest previous paranasal sinus surgery. There is trace mucosal thick ening within the sphenoid sinuses. The mastoid air cells are well pneumatized. Orbits: The bony orbits are grossly intact. IMPRESSION: There is no hemorrhage, mass effect, or evidence of acute territorial ischemia by CT afua grimm. ACT 112: Negative or not required by law. Electronically signed by: Juma Daley M.D. 07/26/2023 6:14 PM
[2023-07-26 18:34] LABS: Troponin I High Sensitivity 4.1 pg/ml (0-14)
[2023-07-26 18:44] LABS: Thyroid Stimulating Hormone 2.123 uIu/ml (0.300-4.500)
[2023-07-26] MEDS: AMOXICILLIN 500 MG CAP PO SCH (22:02)
[2023-07-26] MEDS: CLARITHROMYCIN 500 MG TAB PO SCH (22:03)
[2023-07-26] MEDS: WARFARIN SOD 7.5 MG TAB PO SCH (22:04)
[2023-07-26] MEDS: PANTOprazole 40 MG in SYRINGE 0 ML IV SCH (22:05)
[2023-07-26] MEDS: FAMOTIDINE 20MG IV PUSH 20 MG/5 ML SYR IV SCH (22:05)
[2023-07-27] MEDS: FUROSEMIDE 40 MG TAB PO ONE (03:05)
[2023-07-27 05:13] LABS: Basophils # (auto) 0.02 K/uL (0.00-0.20); Basophils % (auto) 0.5 %; Eosinophils # (auto) 0.16 K/uL (0.00-0.50); Eosinophils % (auto) 3.7 %; Hematocrit (blood only) 37.7 % (37.0-47.0); Hemoglobin 12.8 g/dl (12.0-16.0); Immature Granulocytes # (auto) 0.03 K/uL (0.01-0.20); Immature Granulocytes % (auto) 0.7 %; Lymphocytes # (auto) 0.38 K/uL (1.20-3.40); Lymphocytes % (auto) 8.8 %; Mean Corpuscular Hemoglobin 30.5 pg (25.0-34.0); Mean Corpuscular Volume 89.8 fL (80.0-100.0); Mean Platelet Volume 12.9 fL (9.4-12.4); Monocytes # (auto) 0.31 K/uL (0.11-0.59); Monocytes % (auto) 7.2 %; Neutrophils # (auto) 3.41 K/uL (1.40-6.50); Neutrophils % (auto) 79.1 %; Platelet Count 42 K/uL (130-400); RDW Standard Deviation 48.5 fL (36.4-46.3); White Blood Count 4.31 K/ul (4.8-10.8)
[2023-07-27 05:14] LABS: INR 2.1 (0.9-1.1); Prothrombin Time 21.6 Seconds (9.0-12.0)
[2023-07-27 05:31] LABS: Albumin Globulin Ratio 0.9 (0.9-2); Albumin Level 2.8 gm/dl (3.4-5.0); BUN Creatinine Ratio 29.7 (10-20); Bilirubin,Total 1.8 mg/dl (0.2-1.0); Calcium 7.1 mg/dl (8.6-10.3); Creatinine Clr Calc Pharmacy 191.5 ml/min; Est GFR (African American) 131.8 ml/min; Est GFR (Non-African American) 113.7 ml/min; Globulin 3.2 gm/dl (2.5-4.0); Potassium 3.2 mmol/L (3.5-5.1)
[2023-07-27] MEDS ORDERED: GLUCOSE 10 TAB/TUBE PO PRN (06:15)
[2023-07-27] MEDS ORDERED: GLUCOSE 40% GEL 15 GM TUBE PO PRN (06:15)
[2023-07-27] MEDS ORDERED: CARBOHYDRATES FOR HYPOGLYCEMIA PO PRN (06:15)
[2023-07-27] MEDS ORDERED: GLUCAGON FOR INJ 1 MG VIAL SQ PRN (06:15)
[2023-07-27] MEDS ORDERED: DEXTROSE 50% 50 ML SYRINGE IV PRN (06:15)
--- NOTE | 2023-07-27 06:42 | Hospitalist Progress Note ---
Date of Service July 27, 2023 Assessment & Plan (1) Helicobacter pylori gastritis: Plan: Abd pain/N/V/H pylori gastritis: -Patient with recent diagnosis of Helicobacter pylori infection. -CT A&P w/ large esophageal varices, splenomegaly, small volume ascites, portal HTN -CT also showed gastritis, nonspecific wall thickening R colon, mesenteric edema. -CBC unremarkable, CMP with mildly raised T bili, procal negative, TSH normal, U/A and biofire normal. -No signs of ascites on exam. Has subjectively improved with fluid and continuation of antibiotics. -Difficult to pinpoint cause if this is due to gastritis, portal colopathy, new thrombosis to portal vein -Will continue to monitor, advance diet as tolerated. 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 -Started on Warfarin at that time and follows with anticoagulation clinic since then. -portal vein US from 04/2022 showed no portal vein thrombosis -CT A&P from admission shows new nonocclusive thrombus within main portal vein, L intrahepatic portal vein, SMV. -Patient's INR 2.1 at last anticoag clinic visit from 2 weeks ago. INR on admission 1.9, repeat 2.1. -Questionable if failure of warfarin given she has not been well outside therapeutic range. -Consulted hematology, appreciate recommendations. Vertigo: -New onset vertigo with this episode as well as generalized weakness. -Patient without focal neuro deficit, has neuropathy from diabetes following with podiatry. -07/22 prescribed gabapentin but unclear if started, held this admission. -Nystagmus on exam, had head CT ordered which did not show any abnormalities. -MRI brain did not show any abnormalities either. -Likely not stroke related, may be secondary to mild fluid overload or above reason for abdominal pain. Pleural effusion, right: -Seen on CT, likely related to cirrhosis. -Has been hemodynamically stable. Cirrhosis of the liver: -Likely not taking furosemide since last prescribed last January. -Unclear if spironolactone is being taken daily as well. -Will continue spironolactone this admission. Diabetes: -Recently switched from [facility] to [facility] due to insurance coverage. -Holding while inpatient. -SSI. Lump on R breast: -CT with indeterminant 1.6cm enhancing lesion questioned in inferior aspect of R breast. -Not well assessed but recommended mammography. -Discussed in clinic visit 07/20 ordering mammography however patient at the time wanted to have scans GI ordered performed first. -Would recommend diagnostic mammo for lump on discharge - can follow up as outpatient however would emphasize to patient while inpatient importance of such. DVT: Warfarin continued Dispo: Med/tele Diet: Advance as tolerated, T2DM carb consistent. (2) Portal vein thrombosis: (3) Vertigo: (4) Pleural effusion, right: (5) Abnormal CT of the abdomen: (6) Cirrhosis of liver: (7) Diabetes: (8) Lump of right breast: Admission and Anticipated Discharge Date Admission Date: July 26, 2023 Supervising Physician Co-Signing Physician Notes Attending Physician Supervision Note: I independently interviewed and examined the patient and verified the garcia history and physical, reviewed labs and image studies and agree with findings and care plan noted above. no abdominal pain nausea vomiting Had her meal without any symptoms. Abdomen soft Nontender bowel sounds present Abdominal pain nausea vomiting -EGD from 07/01/2023 showed severe chronic gastritis with positive H. pylori stain. Was treated with antibiotic. -Noted new portal and superior mesenteric vein nonocclusive thrombosis. -The sudden new symptom possibly from recurrence of gastritis/related to thrombosis -Continue PPI -Await hematology input for concern of failure of warfarin therapy leading to presentation. Cirrhosis -nonadherence to medication -Reiterated the need for adherence with diuretics to help prevent portal hypertension related venous congestion induced bowel ischemia. -Did receive dose of Lasix at 3 AM in the ER and spironolactone dose with a.m. meds. Subjective Patient is Mongolian speaking. News Clerk Kimberli [id number] was used for this encounter. Patient seen at the bedside stating that she feels better today. She still has the generalized weakness feeling but her nausea is much better. She was able to eat a good portion of her breakfast this morning which surprised her. No overnight events. Review of Systems Review of Systems: As per HPI. Physical Exam Constitutional: WD/WN, vitals as above Eyes: PERRLA, mild nystgamus with eye tracking to right or left. Respiratory: normal respiratory effort, lungs clear to auscultation Cardiovascular: RRR, no murmur, no edema Gastrointestinal (Abdomen): normal bowel sounds, soft, nontender, no hepatosplenomegaly Psychiatric: A+Ox3, euthymic affect Results & Data Results & Data Vital Signs (Past 12 Hours) Vital Signs Temp Pulse Pulse Resp BP BP Pulse Ox 07/27/23 04:30 85 17 97 07/27/23 04:00 86 18 97 07/27/23 04:00 133/72 07/27/23 03:30 85 18 97 07/27/23 03:30 121/68 07/27/23 03:13 07/27/23 03:03 86 20 98 07/27/23 03:00 143/94 H 07/27/23 02:59 87 17 98 07/27/23 02:30 88 21 96 07/27/23 02:01 90 20 96 07/27/23 02:00 160/77 H 07/27/23 01:59 90 19 96 07/27/23 01:57 36.6 C 90 21 158/88 H 07/27/23 01:30 89 22 99 07/27/23 01:30 158/88 H 07/27/23 01:08 94 H 18 145/79 H 93 07/27/23 01:02 89 23 91 07/27/23 01:00 145/79 H 07/27/23 00:59 91 H 22 91 07/27/23 00:30 90 19 93 07/27/23 00:30 114/60 07/27/23 00:00 92 H 22 94 07/27/23 00:00 148/84 H 07/26/23 23:30 94 H 22 92 07/26/23 23:30 129/86 07/26/23 23:00 97 H 20 94 07/26/23 22:31 134/75 07/26/23 22:30 95 H 22 92 07/26/23 22:30 96 H 20 134/75 94 07/26/23 22:02 96 H 19 90 07/26/23 21:30 94 H 19 94 07/26/23 21:30 131/68 07/26/23 21:19 98 H 07/26/23 21:13 133/65 07/26/23 21:12 93 H 21 96 07/26/23 20:37 96 H 21 98 07/26/23 19:30 95 H 23 98 07/26/23 19:00 94 H 24 97 O2 Del Method O2 Flow Rate 07/27/23 04:30 07/27/23 04:00 07/27/23 04:00 07/27/23 03:30 07/27/23 03:30 07/27/23 03:13 Oxymask 07/27/23 03:03 07/27/23 03:00 07/27/23 02:59 07/27/23 02:30 07/27/23 02:01 07/27/23 02:00 07/27/23 01:59 07/27/23 01:57 Oxymask 10 07/27/23 01:30 Oxymask 10 07/27/23 01:30 07/27/23 01:08 Nasal Cannula 6 07/27/23 01:02 Nasal Cannula 6 07/27/23 01:00 07/27/23 00:59 07/27/23 00:30 07/27/23 00:30 07/27/23 00:00 07/27/23 00:00 07/26/23 23:30 Nasal Cannula 4 07/26/23 23:30 07/26/23 23:00 07/26/23 22:31 07/26/23 22:30 07/26/23 22:30 Room Air 07/26/23 22:02 07/26/23 21:30 07/26/23 21:30 07/26/23 21:19 07/26/23 21:13 07/26/23 21:12 07/26/23 20:37 07/26/23 19:30 07/26/23 19:00 Resident Activity Tracking Resident Involvement: Resident Care Provided Care Provided: Adult Hospital Medicine
[2023-07-27] MEDS: INSULIN ASPART PER UNIT CHARGE SC SCH (09:48)
[2023-07-27] MEDS: SPIRONOLACTONE 100 MG TAB PO SCH (09:49)
[2023-07-27] MEDS: FUROSEMIDE 40 MG TAB PO SCH (09:49)
[2023-07-27] MEDS: LORazepam 0.5 MG TAB ONE (11:59)
[2023-07-27] MEDS: LORazepam 0.5 MG TAB PO STA (11:59)
--- NOTE | 2023-07-27 12:50 | Magnetic Resonance Report ---
Brain MRI WITHOUT CONTRAST HISTORY: new onset vertigo r/o CVA TECHNIQUE: Multiplanar multisequence MRI of the brain was performed without the use of contrast. COMPARISON STUDY: Head CT 07/26/2023. FINDINGS: There are no areas of restricted diffusion to suggest acute infarction. The midline structu res are intact. Mild mucosal thickening within the right maxillary sinus. The orbits are unremarkable . There are few scattered punctate foci of T2 hyperintensity seen within the periventricular and subc ortical white matter of the supratentorial brain. These are nonspecific but favor mild microvascular ischemic change. Mastoid air cells are clear. The ventricles and sulci are within normal limits for a ge. There is no mass, hematoma, midline shift. The major vascular flow-voids at the skull base are we ll maintained. IMPRESSION: 1. No acute infarct or intracranial hemorrhage. 2. . There are few scattered punctate foci of T2 hyperintensity seen within the periventricular and s ubcortical white matter of the supratentorial brain. These are nonspecific but favor mild microvascul ar ischemic change. ACT 112: Negative or not required by law. Electronically signed by: Ryan Sanabria M.D. 07/27/2023 12:47 PM
[2023-07-27 18:21] LABS: Adenovirus F 40/41 PCR Not Detected (NotDetected); Astrovirus PCR Not Detected (NotDetected); Campylobacter PCR Not Detected (NotDetected); Cryptosporidium PCR Not Detected (NotDetected); Cyclospora cayetanensis PCR Not Detected (NotDetected); Entamoeba histolytica PCR Not Detected (NotDetected); Enteroaggregative E.coli(EAEC) Not Detected (NotDetected); Enteropathogenic E.coli (EPEC) Not Detected (NotDetected); Enterotoxigenic E.coli (ETEC) Not Detected (NotDetected); Giardia lamblia PCR Not Detected (NotDetected); Plesiomonas shigelloides PCR Not Detected (NotDetected); Rotavirus A PCR Not Detected (NotDetected); Salmonella PCR Not Detected (NotDetected); Sapovirus PCR Not Detected (NotDetected); Shiga-like Toxin E.coli (STEC) Not Detected (NotDetected); Shigella/Enteroinvasive E.coli Not Detected (NotDetected); Vibrio cholerae PCR Not Detected (NotDetected); Vibrio species PCR Not Detected (NotDetected); Yersinia enterocolitica PCR Not Detected (NotDetected)
[2023-07-27 18:37] LABS: Norovirus GI/GII PCR DETECTED (NotDetected)
[2023-07-27] MEDS ORDERED: ACETAMINOPHEN 325 MG TAB PO PRN (20:46)
[2023-07-27] MEDS: ACETAMINOPHEN 1,000 MG/100 ML VIAL IV STA (21:28)
[2023-07-27] MEDS: ONDANSETRON INJ 2 MG/ML 2 ML VIAL IV PRN (21:28)
--- NOTE | 2023-07-27 22:28 | Electrocardiogram Report ---
Test Reason : Blood Pressure : / mmHG Vent. Rate : 095 BPM Atrial Rate : 095 BPM P-R Int : 184 ms QRS Dur : 082 ms QT Int : 374 ms P-R-T Axes : 052 -08 017 degrees QTc Int : 469 ms Normal sinus rhythm Minimal voltage criteria for LVH, may be normal variant ( R in aVL ) Nonspecific T wave abnormality Abnormal ECG When compared with ECG of 18-DEC-2022 22:13, No significant change was found Confirmed by Joo Jara ([id number]) on 07/27/2023 10:27:58 PM Referred By: REFERRED SELF Confirmed By:Joo Jara
--- OUTSIDE RECORDS SUMMARY | 2023-07-28 00:07 | External Medical Summary | Continuity of Care Document ---
Author Name Unknown Organization [place] [id number] [place] [phone] Care Team Providers Care Rod Hanger Name Role Phone Rubia Plaza Primary Care Physician [phone] Encounter [facility] [id number] Date(s): 07/21/23 - 07/21/23 [facility] [address] [address] [phone] Encounter Diagnosis Type 2 diabetes mellitus(Discharge Diagnosis) - 07/21/23 Thrombocytopenia(Discharge Diagnosis) - 07/21/23 Hypocalcemia(Discharge Diagnosis) - 07/21/23 Lipid screening(Discharge Diagnosis) - 07/21/23 Hypocalcemia(Final) - Thrombocytopenia, unspecified(Final) - Type 2 diabetes mellitus without complications(Final) - Discharge Disposition: Home or Self Care [facility]ending Phys[facility] Allergies, Adverse Reactions, Alerts Substance Reaction Severity Status menthol topical Shortness of breath Activ e Assessment and Plan Extracted from: Title:Office Visit Note Author:DO Guerra Kamron Date:07/21/23 1.Type 2 diabetes mellitus Chronic condition Goal:Not atgoal Data:unique tests ordered:A1c, lipidprofile _ Plan: -Will increase Farxiga to 10mg due to glucose not in good range. Will try to get back to sub 200 levels patient was on Jardiance. Sent 10mg jardiance to patient's pharmacy. -Will reorder A1c. Reordered -Follow up in 3-4 weeks. 2.Thrombocytopenia Chronic, will reorder CBC for platelets and patient has follow up with Dr. Monse Gutierrez hematology next week. 3.Hypocalcemia Acute, low calcium to 7.9 on last CMP. Will reorder CMP for calcium level. 4.Lipid screening Last lipid screen 2 years prior, will reorder lipid profile. Recommended to patient to obtain mammogram screening however she stated she would want to complete testing she has ordered already (CT ordered from GI appointment) before addressing this. Immunizations Given and Recorded Vaccine Date Status Refusal Reason hepatitis B adult vaccine 07/11/20 Given Medications amoxicillin 500 mg oral tablet Start: 07/03/23 10:16:00 EDT, 1 tab, PO, q12h, Disp# 28 tab, Refills: 0, Pharmacy: [facility]/pharmacy #[id number] Start Date: 07/03/23 Stop Date: 07/17/23 Status: Ordered bismuth subsalicylate 525 mg oral tablet Start: 07/03/23 10:15:00 EDT, 1 tab, PO, qid, Disp# 56 tab, Refills: 0, MUST CHEW TABLET, Pharmacy:[facility]/pharmacy #[id number] Start Date: 07/03/23 Stop Date: 07/17/23 Status: Ordered Farxiga 10 mg oral tablet Start: 07/21/23 9:11:00 EDT, 1 tab, PO, Daily, Disp# 30 tab, Refills: 3, Pharmacy: [facility]/pharmacy #[id number] Start Date: 07/21/23 Status: Ordered Farxiga 5 mg oral tablet Start: 05/19/23 8:55:00 EST, 1 tab, PO, Daily, Disp# 30 tab, Refills: 1, Pharmacy: [facility]/pharmacy #[id number] Start Date: 05/19/23 Status: Ordered Flagyl 500 mg oral tablet Start: 07/03/23 10:16:00 EDT, 1 tab, PO, q12h, Disp# 28 tab, Refills: 0, Pharmacy: [facility]/pharmacy #[id number] Start Date: 07/03/23 Stop Date: 07/17/23 Status: Ordered furosemide 40 mg oral tablet Start: 09/28/21 12:05:00 EDT, 1 tab, PO, Daily, Disp# 30 tab, Refills: 2, Pharmacy: [facility]/pharmacy #[id number] Start Date: 09/28/21 Stop Date: 12/27/21 Status: Ordered levothyroxine 75 mcg (0.075 mg) oral tablet Start: 09/28/21 11:56:00 EDT, 1 tab, PO, Daily, Disp# 30 tab, Refills: 2, Pharmacy: [facility]/pharmacy #[id number] Start Date: 09/28/21 Stop Date: 12/27/21 Status: Ordered Neurontin 100 mg oral capsule Start: 07/23/23 10:08:00 EDT, 1 cap, PO, tid, Disp# 27 cap, Refills: 0, After 3 days then take 2 100mg capsules 3 times a day for 3 days then begin 300mgRx, Pharmacy: [facility]/pharmacy #[id number] Start Date: 07/23/23 Stop Date: 07/26/23 Status: Ordered Neurontin 300 mg oral capsule Start: 07/23/23 10:08:00 EDT, 1 cap, PO, tid, Disp# 90 cap, Refills: 2, Pharmacy: [facility] #[id number] Start Date: 07/23/23 Stop Date: 10/21/23 Status: Ordered One Touch Delica Plus (33G) Lancets Start: 05/05/23 12:16:00 EST, See Instructions, Disp# 100 each, Refills: 11, Check glucose once daily PRN, Pharmacy: [facility] #[id number] Start Date: 05/05/23 Status: Ordered One Touch Ultra 2 Glucose Monitor Start: 03/30/21 12:17:00 EST, See Instructions, Disp# 1 each, Refills: 0, Check glucose once daily PRN, [id number] Start Date: 03/30/21 Status: Ordered One Touch Ultra Test Strips 100 ct Start: 07/21/23 9:04:00 EDT, See Instructions, Disp# 100 each, Refills: 11, Check glucose once daily PRN, Pharmacy: [facility]/pharmacy #[id number] Start Date: 07/21/23 Status: Ordered pantoprazole 40 mg oral delayed release tablet Start: 07/03/23 10:14:00 EDT, 1 tab, PO, bid, Disp# 28 tab, Refills: 0, Please use this script for 2 weeks and hold prior once daily dosing until after stool study is submitted., Pharmacy: [facility]/pharmacy #[id number] Start Date: 07/03/23 Stop Date: 07/17/23 Status: Ordered Protonix 40 mg oral delayed release tablet Start: 02/18/23 8:20:00 EST, 1 tab, PO, Daily, Disp# 90 tab, Refills: 1, Pharmacy: [facility]/pharmacy #[id number] Start Date: 02/18/23 Stop Date: 08/17/23 Status: Ordered spironolactone 100 mg oral tablet Start: 09/25/22 7:56:00 EDT, See Instructions, Disp# 30 tab, Refills: 11, TAKE 1 TABLET BY MOUTH EVERY DAY, Pharmacy: [id number] Start Date: 09/25/22 Status: Ordered vitamin E 400 intl units oral capsule Start: 04/17/20 15:05:00 EST, 1 cap, PO, Daily, Disp# 100 cap, Refills: 5, [id number] Start Date: 04/17/20 Status: Ordered warfarin 2 mg oral tablet Start: 04/07/20 13:46:00 EST, 1 tab, PO, Daily Start Date: 04/07/20 Status: Ordered Zofran ODT 4 mg oral tablet, disintegrating Start: 05/05/23 11:57:00 EST, 1 tab, PO, tid, Disp# 21 tab, PRN: as needed for nausea/vomiting, Pharmacy: [facility] #[id number] Start Date: 05/05/23 Stop Date: 05/12/23 Status: Ordered Mental Status 07/21/23 Barriers to Learning one year Language b arrier Mandatory Health Literacy Documentation Yes Health Literacy Communication Barriers N ever Primary Language [place]ian Interpreters Available yes [id number] Problem List Condition Confirmation Course Effective Dates Status H ealth Status Informant Ascites Confirmed Active Back pain Confirmed Active Cirrhosis of liver Confirmed Active Diabetes Confirmed Active Esophageal varices Confirmed Active Gastric ulcer Confirmed Active Leukopenia Confirmed Active Neuropathy Confirmed Active Numbness in feet Confirmed Active Chronic venous insufficiency Confirmed Active Portal vein thrombosis Confirmed Active Elevated total protein Confirmed Active Type 2 diabetes mellitus Confirmed Active Duodenal ulcer Confirmed Active Venous insufficiency of leg Confirmed Active Hepatitis C Confirmed Active Diagnosis Diagnosis Type Effective Dates Health Status Clinical Service Informant Lipid screening Discharge Diagnosis 07/21/23 Non-Specified Thrombocytopenia Discharge Diagnosis 07/21/23 Non-Specified Hypocalcemia Discharge Diagnosis 07/21/23 Non-Specified Type 2 diabetes mellitus Discharge Diagnosis 07/21/23 Procedures Procedure Date Related Diagnosis Body Site Status EGD - esophagogastroduodenoscopy 1 07/01/23 Completed EGD - esophagogastroduodenoscopy 2 01/15/23 Completed LIVER ELASTOGRAPHY 3 12/05/22 Comp leted MRI of lumbar spine without contrast 4 07/20/22 Completed Ultrasound--abdomen 5 2/13/23 Com pleted Plain X-ray of lumbar spine 6 03/28/22 Completed Ultrasound 7 03/12/21 Completed Ultrasound 8 11/03/20 Completed Ultrasound of abdomen for ascites 9 11/03/20 Completed Paracentesis under ultrasoun d guidance 10 10/13/20 Completed Chest X-ray 11 09/11/20 Completed Paracentesis 12 08/10/20 Completed Paracentesis 13 05/09/20 Completed Paracentesis 03/2020 Completed 1Grade II esophageal varices. Portal hypertensive gastropathy. Erythematous mucosa in the antrum, biopsied. Non-bleeding duodenal ulcers. 2Grade II esophageal varices. Portal hypertensive gastropathy Non-bleeding gastric ulcer with no stigmata of bleeding. Non-bleeding duodenal ulcer with no stigmata of bleeding. No specimens collected. 3Interpretation: Table 1. Cirrhotic liver (F4) (>20kPa suggestive of portal hypertension) 4Impression: 1. Mild lumbosacral spondylosis with no significiant acquired compromise of the central canal or neural foraminal narrowing. See discussion for detailed level by level analysis. 2. Degenerative disc disease as above. 3. No destructive bony process is seen. 5Cirrhotic liver with trace RUQ ascites. 6Impression: No acute fracture or sublucation Moderate to advanced degenerative changes as above. 7impression: Ultrasound guided diagnostic/theraputic paracentesis 8Impression: Multiple ultrasound images of the abdomen were obtained for planned paracentesis. Due to low volumeof fluid, paracentesis was not attempted. 9Small to moderate abnorminal ascites. No paracentesis was conducted, see report 10Impression: Successful ultrasound-guided paracentesis with removal of approximately 6 liters of ascitic fluid. 11impression 1. No Large infiltrates or consolidative lesions. Interval diffuse accentuation of pulmonary parenchyma which might represent pulmonary edema or bronchitis 12Successful US-guided paracentesis with removal of approximately 6 L of ascitic fluid 13US guided paracentesis with removal of 6 L of ascites. 1 L of ascites was sent to the laboratory for analysis as ordered. Results Laboratory List Name Date Complete Blood Count w Differential (CBC ,DIFFH) 07/21/23 Comprehensive Metabolic Panel (COMP META B PANEL) 07/21/23 Hemoglobin A1C (HEMOGLOBIN, A1C) 07/21/23 Lipid Profile (LIPOPROTEINS) 07/21/23 Most recent to oldest [Reference Range]: 1 eGFR CKD-EPI [>60 mL/min/1.73 m2] >90 mL /min/1.73 m2 (07/21/23 9:37 AM) Estimated Average Glucose 197 mg/dL (07/21/23 9:37 AM) Non-HDL 145 mg/dL (07/21/23 9:37 AM) Estimated CrCl 146.57 mL/min (07/21/23 9:30 PM) MPV [9.0-12.2 fL] NOT AVAILABLE fL 1 (07/21/23 9:37 AM) Immature Gran% 0.3 % (07/21/23 9:37 AM) Neut% 60.7 % (07/21/23 9:37 AM) Lymph% 23.2 % (07/21/23 9:37 AM) [place]% 9.6 % (07/21/23 9:37 AM) Baso% 0.6 % (07/21/23 9:37 AM) Eos% 5.6 % (07/21/23 9:37 AM) Immat Gran, Abs [0-0.4 K/uL] 0.01 K/uL 2 (07/21/23 9:37 AM) Neut, Abs [2.0-7.7 K/uL] 1.96 K/uL *LOW* (07/21/23 9:37 AM) Lymph, Abs [1.0-3.4 K/uL] 0.75 K/uL *LOW* (07/21/23 9:37 AM) [place], Abs [0-1.0 K/uL] 0.31 K/uL (07/21/23 9:37 AM) Baso, Abs [0-0.1 K/uL] 0.02 K/uL (07/21/23 9:37 AM) Eos, Abs [0-0.5 K/uL] 0.18 K/uL (07/21/23 9:37 AM) Type of Diff: AUTO *Unknown* (07/21/23 9:37 AM) RDW [11.5-14.2 %] 15.2 % *HI* (07/21/23 9:37 AM) Anion Gap [5-14 mmol/L] 10 mmol/L (07/21/23 9:37 AM) Alb [3.5-5.2 g/dL] 3.3 g/dL *LOW* (07/21/2337 AM) Alk Phos [35-115 unit/L] 111 unit/L 3 (07/21/23:37 AM) ALT [0-33 unit/L] 25 unit/L (07/21/2337 AM) AST [0-32 unit/L] 37 unit/L *HI* (07/21/2337 AM) BUN [6-23 mg/dL] 10 mg/dL (07/21/23:37 AM) Ca [8.4-10.2 mg/dL] 7.9 mg/dL *LOW* (07/21/23 AM) Chol/HDL 3 (07/21/23 AM) Chol [<200 mg/dL] 215 mg/dL *HI* (07/21/2337 AM) Cl- [98-107 mmol/L] 105 mmol/L (07/21/23:37 AM) HCO3 [22-29 mmol/L] 23 mmol/L (07/21/23 9:37 AM) Cret [0.60-1.00 mg/dL] 0.49 mg/dL *LOW* (07/21/23:37 AM) HbA1c [<5.7 %] 8.5 % 4 *HI* (07/21/23:37 AM) Glu [74-109 mg/dL] 163 mg/dL 5 *HI* (07/21/2337 AM) Hct [35-44 %] 40.8 % (07/21/23:37 AM) HDL [>40 mg/dL] 70 mg/dL (07/21/23:37 AM) Hgb [11.7-15.0 g/dL] 13.8 g/dL (07/21/23:37 AM) K [3.5-5.1 mmol/L] 4.1 mmol/L (07/21/23:37 AM) LDL Chol, Calculated [50-130 mg/dL] 128 mg/dL (07/21/23:37 AM) MCH [28-33 pg] 30.6 pg (07/21/23 9:37 AM) MCHC [32-36 g/dL] 33.8 g/dL (07/21/23 9:37 AM) MCV [81-96 fL] 90.5 fL (07/21/23 9:37 AM) Na [136-145 mmol/L] 138 mmol/L (07/21/23 9:37 AM) Plts [150-350 K/uL] 55 K/uL 6 *LOW* (07/21/23 9:37 AM) RBC [3.90-5.00 M/uL] 4.51 M/uL (07/21/23 9:37 AM) T Bili [0.0-1.2 mg/dL] 1.4 mg/dL *HI* (07/21/23 9:37 AM) Prot [6.4-8.3 g/dL] 7.2 g/dL (07/21/23 9:37 AM) TG [<150 mg/dL] 86 mg/dL (07/21/23 9:37 AM) WBC [4.0-10.4 K/uL] 3.23 K/uL *LOW* (07/21/23 9:37 AM) 1Result Comment: Testing Performed By: Dept of Pathology [facility] [place] [address], [address] [place] [address] 2Result Comment: Testing Performed By: Dept of Pathology [facility] [address], [address] [place] [address] 3Result Comment: Low levels of ALKP may indicate a deficiency in zinc, magnesium, or malnutritionbutcan also be an indicator of a rare genetic disease hypophosphatasia (HPP). 4Result Comment: ADA Recommended [place] Reference Range: Normal: <5.7% Prediabetes: 5.7-6.4% Diabetes: >6.4% 5Result Comment: ADA recommendation for FASTING Serum/Plasma Glucose: Normal: 70-100 mg/dL Prediabetes: 100-125 mg/dL Diabetes: 126 mg/dL or higher 6Result Comment: CHECKED Vital Signs Most recent to oldest [Reference Range]: 1 Patient Weight 110.8 kg (07/21/23 8:44 AM) Temperature [36.5-37.9 DegC] 36.6 DegC (07/21/23 8:44 AM) Heart Rate 78 bpm (07/21/23 8:44 AM) Respiratory Rate 20 br/min (07/21/23 8:44 AM) Blood Pressure 126/64mmHg (07/21/23 8:44 AM) Social History Social History Type Response Smoking Status Never smoked cigaret olga Sex Female FCM Outpt Note * DO Guerra Kamron: PERFORM DO Plaza Allison B: MODIFY Event Display: FCM Outpt Note Authored Date: [id number] Chief Complaint follow up DM History of Present Illness Bruna is a 62 year old female coming in for follow up on diabetes. [place] [id number]. -patient was seen at the last visit with insurance denial of Jardiance patient had been on chronically. At that time we switched her to Farxiga 5mg and said if she tolerates well to bump up to 10mg. -Sugars at home on the 5mg of Farxiga have been in the 200's to 250's. Thrombocytopenia: -Patient with low platelets from past few blood checks, chronic issue as well. Dr. Shea appointment for next week. Hypocalcemia: -Patient with low calcium to 7.9 on last check from April. Does not consume any dairy products, avoids green leafy vegetables due to warfarin use. Review of Systems As per HPI. Physical Exam Vitals & Measurements T:36.6C HR:78(Monitored) RR:20 BP:126/64 SpO2:96% WT:110.8kg WT:110.800kg(Dosing) PHQ2 Data(Data Documented on:07/21/2023 08:42) Emotional health assessment NEGATIVE Gen Appearance: Not in any acute distress, well-appearing. Skin: No bruising on skin visualized. Neuro: alert, oriented, no focal deficit appreciated. Assessment/Plan 1.Type 2 diabetes mellitus Chronic condition Goal:Not atgoal Data:unique tests ordered:A1c, lipidprofile _ Plan: -Will increase Farxiga to 10mg due to glucose not in good range. Will try to get back to sub 200 levels patient was on Jardiance. Sent 10mg jardiance to patient's pharmacy. -Will reorder A1c. Reordered -Follow up in 3-4 weeks. 2.Thrombocytopenia Chronic, will reorder CBC for platelets and patient has follow up with Dr. Monse Gutierrez hematology next week. 3.Hypocalcemia Acute, low calcium to 7.9 on last CMP. Will reorder CMP for calcium level. 4.Lipid screening Last lipid screen 2 years prior, will reorder lipid profile. Recommended to patient to obtain mammogram screening however she stated she would want to complete testing she has ordered already (CT ordered from GI appointment) before addressing this. Attestation Pt seen and examined in concert with Dr. Guerra, agree with history and physical as documentedabove. Plan reviewed in detail. Any corrections or additions are noted here - Agree with plan. Patient declined mammogram at this time. Follow up as scheduled. Blood work pending. Problem List/Past Medical History Ongoing Ascites Back pain Chronic venous insufficiency Cirrhosis of liver Diabetes Duodenal ulcer Elevated total protein Esophageal varices Gastric ulcer Hepatitis C Leukopenia Neuropathy Numbness in feet Portal vein thrombosis Type 2 diabetes mellitus Venous insufficiency of leg Procedure/Surgical History EGD - esophagogastroduodenoscopy| Service Date: 07/01/2023EGD - esophagogastroduodenoscopy| Service Date: 01/15/2023LIVER ELASTOGRAPHY| Service Date: 12/05/2022MRI of lumbar spine withoutcontrast| Service Date: 07/20/2022Ultrasound--abdomen| Service Date: 05/06/2022lain X-ray of lumbar spine| Service Date: 03/28/2022Ultrasound| Service Date: 03/12/2021Ultrasound| ServiceDate: 11/03/2020Ultrasound of abdomen for ascites| Service Date: 11/03/2020aracentesis underultrasound guidance| Service Date: 10/13/2020hest X-ray| Service Date: 09/11/2020aracentesis| Service Date: 08/10/2020aracentesis| Service Date: 05/09/2020aracentesis| Service Date: 03/2020 Medications amoxicillin(amoxicillin 500 mg oral tablet), 500 mg= 1 tab, PO, q12h bismuth subsalicylate(bismuth subsalicylate 525 mg oral tablet), 525 mg= 1 tab, PO, qid dapagliflozin(Farxiga 10 mg oral tablet), 10 mg= 1 tab, PO, Daily, 3 refills dapagliflozin(Farxiga 5 mg oral tablet), 5 mg= 1 tab, PO, Daily, 1 refills diabetes supplies(One Touch Ultra 2 Glucose Monitor), See Instructions diabetes supplies(One Touch Ultra Test Strips 100 ct), See Instructions, 11 refills diabetes supplies(One Touch Delica Plus (33G) Lancets), See Instructions, 11 refills furosemide(furosemide 40 mg oral tablet), 40 mg= 1 tab, PO, Daily, 2 refills levothyroxine(levothyroxine 75 mcg (0.075 mg) oral tablet), 75 mcg= 1 tab, PO, Daily, 2 refills metroNIDAZOLE(Flagyl 500 mg oral tablet), 500 mg= 1 tab, PO, q12h ondansetron(Zofran ODT 4 mg oral tablet, disintegrating), 4 mg= 1 tab, PO, tid, PRN pantoprazole(Protonix 40 mg oral delayed release tablet), 40 mg= 1 tab, PO, Daily, 1 refills pantoprazole(pantoprazole 40 mg oral delayed release tablet), 40 mg= 1 tab, PO, bid spironolactone(spironolactone 100 mg oral tablet), See Instructions vitamin E(vitamin E 400 intl units oral capsule), 400 Int_Unit= 1 cap, PO, Daily, 5 refills warfarin(warfarin 2 mg oral tablet), 2 mg= 1 tab, PO, Daily Allergies menthol topicalShortness of breath Social History Smoking Status Never smoked cigarettes Family History Cancer of colon: Mother. Health Status Family Member(s) Family Member(s) Relationship: Mother, Age: 81 Years, Cause: colon cancer Relationship: Father, Age: 80 Years, Cause: stroke Immunizations Vaccine Date Status hepatitis B adult vaccine 07/11/2020 Given Recommendations Health Maintenance Pending(in the next year) OverDue Adult Influenza Vaccine due09/20/22and every 1year Due Adult COVID-19 Vaccination due07/21/23Unknown Frequency Adult Social Determinants of Health Screening due07/21/23Unknown Frequency Adult Tdap/Td Vaccine due07/21/23Unknown Frequency Breast Cancer Screening due07/21/23Unknown Frequency Cervical Cancer Screening due07/21/23Unknown Frequency Colorectal Cancer Screening due07/21/23Unknown Frequency Pneumococcal Vaccine Adults and Adolescents with Chronic Illness due07/21/23One-time only Shingles Vaccine due07/21/23One-time only Due In Future Diabetes Management A1c not due until05/05/24and every 366day Satisfied(in the past 1 year) Satisfied Body Mass Index on07/16/23.Satisfied by PARAG Justice Erin Diabetes Management A1c on05/05/23.Satisfied by Contributor_system, [email or web address] Diabetes Nephropathy Management on10/17/22.Satisfied by Contributor_system, [email or web address] Diabetic Eye Exam on09/02/22.Satisfied by RACHEL Mario Lynnae Electronic Signature on File Electronically Reviewed/Signed by: Carlos Alberto Guerra DO Author Signature Dt/Tm:07/21/2023 10:07 AM Resident Department of Family Medicine Electronically Reviewed/Signed by: Rubia Plaza DO Cosigner Signature Dt/Tm: 07/21/2023 10:10 AM Department of Family Medicine [place] Patient Care team information Care Team Personnel Name: MD Cherelle, Domingo Iqbal Position: Physician - Gastro Member Role: Lifetime Relationship Address: Address: [address] [place] [address] Name: DO Plaza Allison B Position: Physician - Family Med Member Role: Primary Care Provider Address: Address: [address] [place] [address] Name: GLEN Phan Lynn Position: Physician Software Quality Analyst Exempt - Vasc Surg Member Role: Lifetime Relationship Address: Address: [address] [place] [address]"
--- OUTSIDE RECORDS SUMMARY | 2023-07-28 00:07 | External Medical Summary | Continuity of Care Document ---
Author Name Unknown Organization [id number] Address [address] [place] [phone] Care Team Providers Care Lan Support Specialist Name Role Phone Rubia Plaza Primary Care Physician [phone] [id number] Date(s): 07/23/23 - 07/23/23 [facility] [address] [place] [id number] [address] [place] [phone] Encounter Diagnosis Neuropathy(Discharge Diagnosis) - 07/23/23 Discharge Disposition: Home or Self Care Attending Physician: MD Stanford Gregory G Referring Physician: ADELINA Morales Christina L Allergies, Adverse Reactions, Alerts Substance Reaction Severity Status menthol topical Shortness of breath Activ e Immunizations Given and Recorded Vaccine Date Status Refusal Reason hepatitis B adult vaccine 07/11/20 Given Medications amoxicillin 500 mg oral tablet Start: 07/03/23 10:16:00 EDT, 1 tab, PO, q12h, Disp# 28 tab, Refills: 0, Pharmacy: [id number] Start Date: 07/03/23 Stop Date: 07/17/23 Status: Ordered bismuth subsalicylate 525 mg oral tablet Start: 07/03/23 10:15:00 EDT, 1 tab, PO, qid, Disp# 56 tab, Refills: 0, MUST CHEW TABLET, Pharmacy:[id number] Start Date: 07/03/23 Stop Date: 07/17/23 Status: Ordered Farxiga 10 mg oral tablet Start: 07/21/23 9:11:00 EDT, 1 tab, PO, Daily, Disp# 30 tab, Refills: 3, Pharmacy: [id number] Start Date: 07/21/23 Status: Ordered Farxiga 5 mg oral tablet Start: 05/19/23 8:55:00 EST, 1 tab, PO, Daily, Disp# 30 tab, Refills: 1, Pharmacy: [facility] #[id number] Start Date: 05/19/23 Status: Ordered Flagyl 500 mg oral tablet Start: 07/03/23 10:16:00 EDT, 1 tab, PO, q12h, Disp# 28 tab, Refills: 0, Pharmacy: [facility] #[id number] Start Date: 07/03/23 Stop Date: 07/17/23 Status: Ordered furosemide 40 mg oral tablet Start: 09/28/21 12:05:00 EDT, 1 tab, PO, Daily, Disp# 30 tab, Refills: 2, Pharmacy: [facility] #[id number] Start Date: 09/28/21 Stop Date: 12/27/21 Status: Ordered levothyroxine 75 mcg (0.075 mg) oral tablet Start: 09/28/21 11:56:00 EDT, 1 tab, PO, Daily, Disp# 30 tab, Refills: 2, Pharmacy: [facility] #[id number] Start Date: 09/28/21 Stop Date: 12/27/21 Status: Ordered Neurontin 100 mg oral capsule Start: 07/23/23 10:08:00 EDT, 1 cap, PO, tid, Disp# 27 cap, Refills: 0, After 3 days then take 2 100mg capsules 3 times a day for 3 days then begin 300mgRx, Pharmacy: [facility] #[id number] Start Date: 07/23/23 Stop Date: 07/26/23 Status: Ordered Neurontin 300 mg oral capsule Start: 07/23/23 10:08:00 EDT, 1 cap, PO, tid, Disp# 90 cap, Refills: 2, Pharmacy: [facility][id number] Start Date: 07/23/23 Stop Date: 10/21/23 Status: Ordered One Touch Delica Plus (33G) Lancets Start: 05/05/23 12:16:00 EST, See Instructions, Disp# 100 each, Refills: 11, Check glucose once daily PRN, Pharmacy: [facility] #[id number] Start Date: 05/05/23 Status: Ordered One Touch Ultra 2 Glucose Monitor Start: 03/30/21 12:17:00 EST, See Instructions, Disp# 1 each, Refills: 0, Check glucose once daily PRN, [id number] Start Date: 03/30/21 Status: Ordered One Touch Ultra Test Strips [address] ct Start: 07/21/23 9:04:00 EDT, See Instructions, Disp# 100 each, Refills: 11, Check glucose once daily PRN, [id number] Start Date: 07/21/23 Status: Ordered pantoprazole 40 mg oral delayed release tablet Start: 07/03/23 10:14:00 EDT, 1 tab, PO, bid, Disp# 28 tab, Refills: 0, Please use this script for 2 weeks and hold prior once daily dosing until after stool study is submitted., [id number] Start Date: 07/03/23 Stop Date: 07/17/23 Status: Ordered Protonix 40 mg oral delayed release tablet Start: 02/18/23 8:20:00 EST, 1 tab, PO, Daily, Disp# 90 tab, Refills: 1, Pharmacy: [facility][id number] Start Date: 02/18/23 Stop Date: 08/17/23 Status: Ordered spironolactone 100 mg oral tablet Start: 09/25/22 7:56:00 EDT, See Instructions, Disp# 30 tab, Refills: 11, TAKE 1 TABLET BY MOUTH EVERY DAY, Pharmacy: [id number] Start Date: 09/25/22 Status: Ordered vitamin E 400 intl units oral capsule Start: 04/17/20 15:05:00 EST, 1 cap, PO, Daily, Disp# 100 cap, Refills: 5, [id number] Start Date: 04/17/20 Status: Ordered warfarin 2 mg oral tablet Start: 04/07/20 13:46:00 EST, 1 tab, PO, Daily Start Date: 04/07/20 Status: Ordered Zofran ODT 4 mg oral tablet, disintegrating Start: 05/05/23 11:57:00 EST, 1 tab, PO, tid, Disp# 21 tab, PRN: as needed for nausea/vomiting, [id number] Start Date: 05/05/23 Stop Date: 05/12/23 Status: Ordered Mental Status 07/23/23 Barriers to Learning one year Language b arrier Mandatory Health Literacy Documentation Yes Health Literacy Communication Barriers N ever Primary Language Lebanese Problem List Condition Confirmation Course Effective Dates [...] Diagnosis Diagnosis Type Effective Dates Health Status Clini [facility] Service Informant Neuropathy Discharge Diagnosis 07/23/23 Procedures Procedure Date Related Diagnosis Body Site Status EGD - esophagogastroduodenoscopy 1 07/01/23 Completed EGD - esophagogastroduodenoscopy 2 01/15/23 Completed LIVER ELASTOGRAPHY 3 12/05/22 Comp leted MRI of lumbar spine without contrast 4 07/20/22 Completed Ultrasound--abdomen 5 05/06/22 Com pleted Plain X-ray of lumbar spine [...] to the laboratory for analysis as ordered. Social History Social History Type Response Smoking Status Never smoked cigaret olga Sex Female Patient Care team information Care Team Personnel Name: MD Cherelle, Domingo Iqbal Position: Physician - Gastro Member Role: Lifetime Relationship Address: Address: [address] [place] [address] Name: DO Plaza Allison B Position: Physician - Family Med Member Role: Primary Care Provider Address: Address: [address] [place] [address] Name: GLEN Phan Lynn Position: Physician Games Manager Exempt - Vasc Surg Member Role: Lifetime Relationship Address: Address: [address] [place] [address]
--- OUTSIDE RECORDS SUMMARY | 2023-07-28 00:07 | External Medical Summary | Continuity of Care Document ---
Author Name Unknown Organization [address] [id number] Care Team Providers Care Medical Office Coordinator Name Role Phone Rubia Plaza Primary Care Physician [phone] [facility]counter [facility] [id number] Date(s): 07/16/23 - 07/16/[address] [address] [phone] Encounter Diagnosis Body mass index [BMI] 39.0-39.9, adult(Discharge Diagnosis) - 07/16/23 Cirrhosis of liver(Discharge Diagnosis) - 07/16/23 Hepatitis C(Discharge Diagnosis) - 07/16/23 Portal vein thrombosis(Discharge Diagnosis) - 07/16/23 Duodenal ulcer(Discharge Diagnosis) - 07/16/23 Esophageal varices(Discharge Diagnosis) - 07/16/23 Discharge Disposition: Home or Self Care Attending Physician: GLEN Branch Kelli Jo Allergies, Adverse Reactions, Alerts Substance Reaction Severity Status menthol topical Shortness of breath Activ e Assessment and Plan Extracted from: Title:Office Visit Note Author:GLEN Branch Kell i Jo Date:07/16/23 Body mass index [BMI] 39.0-3 9.9, adult Cirrhosis of liver Duodenal ulcer Esophageal varices Hepatitis C Portal vein thrombosis Language line was used today for communicationin [place] Verdean. Xochilt [id number] The patient is a pleasant 62-year-old female who presents today to follow-up after recent EGD. Patient'sOctober EGD demonstrated both gastric and duodenal ulcer. She had been on Nexium for approximately 1 monthwithout complete resolution of her leftsided epigastric abdominal pain.Repeat EGD demonstrated resolution of stomach ulcers, but + H. Pylori. Pt is current on quad therapy: 1.Continue Pantoprazole 40 mg twice daily x 14 days 2.Bismuth subsalicylate 525mg (Pepto Bismol) four times daily x 14 days - must chew this medication 3.Ziwbmafadrj526 mg po twice daily x 14 days 4.Metronidazole 500mg twice daily for 14 days - C onfirmation oferadication of H. pylori infection with stool H. pylori ordered- Should be performed 4 weeks after completion of quad therapy. Pt advised after 08/22. Pts chronic issues were not addressed today, she is due for her routine 6 month appt in Nov after October labs. - 05/12/2023 US Complete: 1. Cirrhosis without hepatic mass or ascites identified. 2. Splenomegaly suggestive of portal venous hypertension. 3. No cholelithiasis. 07/01/2023 EGD: Grade II esophageal varices. Portal hypertensive gastropathy. Erythematous mucosa in the antrum, biopsied. Non-bleeding duodenal ulcers. Path: Positive for H pylori - Labs ordered for completion in Oct. -Recenthepatitis Cviral load was negativeand AFP was within normal limits. - Patient s/p treatment with Mavyret 12week therapy in 2020. - INRs are being followed by the [facility] anticoagulation clinic. - The patient demonstrates an F2 fibrosis testing but clinical evidence of cirrhosis. - Fibroscan emonstrated cirrhosis withconcerns for portal hypertension - Patient declinesfurther hepatitisA or B vaccination Patient would likely benefit from addition of a beta-william due to concerns for portal hypertensionhowever struggles with some hypotensionat baselinewillreaddress this at Nov Appt. Portal vein thrombosis: - Continue warfarin managed by the [facility] anticoagulation clinic Ascites: - Resolved on U/S, likely 2/2 hepatitis C. - Continue Diuretic regimen currently Furosemide 40 mg by mouth daily prn, Spironolactone 100 mg by mouth daily. - Instructed to continue to follow a low-sodium diet (less than 2 g daily). Colorectal screening: - Patient's mother with history of colon cancer and due to disease at age of 81. - Patient has never had colonoscopy.- Declines colonoscopy today GI follow up inSept, sooner if needed. I have spent 39 minutes in evaluation, education and documentation of this pt in both face to face and non-face to face activities. Immunizations Given and Recorded Vaccine Date Status Refusal Reason hepatitis B adult vaccine 07/11/20 Given Medications amoxicillin 500 mg oral tablet Start: 07/03/23 10:16:00 EDT, 1 tab, PO, q12h, Disp# 28 tab, Refills: 0, Pharmacy: [facility] #[id number] Start Date: 07/03/23 Stop Date: 07/17/23 Status: Ordered bismuth subsalicylate 525 mg oral tablet Start: 07/03/23 10:15:00 EDT, 1 tab, PO, qid, Disp# 56 tab, Refills: 0, MUST CHEW TABLET, [id number] Start Date: 07/03/23 Stop Date: 07/17/23 Status: Ordered Farxiga 5 mg oral tablet Start: 05/19/23 8:55:00 EST, 1 tab, PO, Daily, Disp# 30 tab, Refills: 1, Pharmacy: [facility] #[id number] Start Date: 05/19/23 Status: Ordered Flagyl 500 mg oral tablet Start: 07/03/23 10:16:00 EDT, 1 tab, PO, q12h, Disp# 28 tab, Refills: 0, [id number] Start Date: 07/03/23 Stop Date: 07/17/23 Status: Ordered furosemide 40 mg oral tablet Start: 09/28/21 12:05:00 EDT, 1 tab, PO, Daily, Disp# 30 tab, Refills: 2, Pharmacy: [facility][id number] Start Date: 09/28/21 Stop Date: 12/27/21 Status: Ordered Jardiance 10 mg oral tablet TAKE 1 TABLET BY MOUTH EVERY MORNING Start Date: 07/16/23 Status: Ordered levothyroxine 75 mcg (0.075 mg) oral tablet Start: 09/28/21 11:56:00 EDT, 1 tab, PO, Daily, Disp# 30 tab, Refills: 2, Pharmacy: [facility] #[id number] Start Date: 09/28/21 Stop Date: 12/27/21 Status: Ordered One Touch Delica Plus (33G) Lancets Start: 05/05/23 12:16:00 EST, See Instructions, Disp# 100 each, Refills: 11, Check glucose once daily PRN, Pharmacy: [facility] #[id number] Start Date: 05/05/23 Status: Ordered One Touch Ultra 2 Glucose Monitor Start: 03/30/21 12:17:00 EST, See Instructions, Disp# 1 each, Refills: 0, Check glucose once daily PRN, [id number] Start Date: 03/30/21 Status: Ordered One Touch Ultra Test Strips 100 ct Start: 05/05/23 12:16:00 EST, See Instructions, Disp# 100 each, Refills: 11, Check glucose once daily PRN, [id number] Start Date: 05/05/23 Status: Ordered pantoprazole 40 mg oral delayed release tablet Start: 07/03/23 10:14:00 EDT, 1 tab, PO, bid, Disp# 28 tab, Refills: 0, Please use this script for 2 weeks and hold prior once daily dosing until after stool study is submitted., [id number] Start Date: 07/03/23 Stop Date: 07/17/23 Status: Ordered Protonix 40 mg oral delayed release tablet Start: 02/18/23 8:20:00 EST, 1 tab, PO, Daily, Disp# 90 tab, Refills: 1, [id number] Start Date: 02/18/23 Stop Date: 08/17/23 Status: Ordered spironolactone 100 mg oral tablet Start: 09/25/22 7:56:00 EDT, See Instructions, Disp# 30 tab, Refills: 11, TAKE 1 TABLET BY MOUTH EVERY DAY, Pharmacy: [id number] Start Date: 09/25/22 Status: Ordered vitamin E 400 intl units oral capsule Start: 04/17/20 15:05:00 EST, 1 cap, PO, Daily, Disp# 100 cap, Refills: 5, [id number] Start Date: 04/17/20 Status: Ordered warfarin 2 mg oral tablet Start: 04/07/20 13:46:00 EST, 1 tab, PO, Daily Start Date: 04/07/20 Status: Ordered Zofran ODT 4 mg oral tablet, disintegrating Start: 05/05/23 11:57:00 EST, 1 tab, PO, tid, Disp# 21 tab, PRN: as needed for nausea/vomiting, Pharmacy: [id number] Start Date: 05/05/23 Stop Date: 05/12/23 Status: Ordered Mental Status 07/16/23 Barriers to Learning one year Language b arrier Mandatory Health Literacy Documentation Yes Health Literacy Communication Barriers O ften Health Literacy Reading Assist interpret er Primary Language [place]an Problem List Condition Confirmation Course Effective Dates [...] Effective Dates Health Status Clinical Service Informant Portal vein thrombosis Discharge Diagnosis 07/16/23 Non-Specified Body mass index [BMI] 39.0-39.9, adult Discharge Diagnosis 07/16/23 Non-Specified Cirrhosis of liver Discharge Diagnosis 07/16/23 Non-Specified Duodenal ulcer Discharge Diagnosis 07/16/23 Non-Specified Esophageal varices Discharge Diagnosis 07/16/23 Non-Specified Hepatitis C Discharge Diagnosis 07/16/23 Non-Specified Procedures Procedure Date Related Diagnosis Body Site [...] to the laboratory for analysis as ordered. Vital Signs Most recent to oldest [Reference Range]: 1 Height 166 cm (07/16/23 9:14 AM) Patient Weight 109.5 kg (07/16/23 9:14 AM) Body Mass Index 39.74 kg/m2 (07/16/23 9:14 AM) Blood Pressure 122/64mmHg (07/16/23 9:14 AM) Cuff Pulse Pressure 58 mmHg (07/16/23 9:14 AM) BP Location # 1 Left Arm (07/16/23 9:14 AM) Social History Social History Type Response Smoking Status Never smoked cigaret olga Sex Female Gastroenterology Outpatient Note * GLEN Branch, Jazlyn Hamlin: PERFORM Event Display: Gastroenterology Outpt Note Authored Date: Chief Complaint Pt here for f/u to EGD. Pt has Hx of cirrhosis, DM, etc. History of Present Illness The patient is a pleasant [id number] presents today forfollow-up evaluation ofcirrhosis secondary to hepatitis C, and h/o portal vein thrombosis on Coumadin.Previously managedby Dhara Menendez DNP. [facility] [place] [facility],and past medical historyreviewed. The patient is a [place] speaker. The language line parts interpreter servicewas utilized today for medical language interpretation at the request of the patient. Prior records: 03/28/2020: Paracentesis performed under ultrasound guidance removed approximately 3.8 L of asciticfluid. Peritoneal fluid negative for malignancies. There were reactive mesothelial cells and histiocytes. Chronic inflammatory cells. 04/17/2020: GI office visit notes are reviewed from Dr. Myers for new patient consult. Patient had to be hospitalized in [place] December 2019 due to upper abdominal pain which ultimately was ascites requiring paracentesis. 05/09/2020: Paracentesis performed under ultrasound guidance removed approximately 6 L of ascites.Peritoneal fluid Gram stain and cultures are negative. 05/26/2020: GI office visit notes reviewed from Dr. Myers. Patient on Lasix and Aldactone as well as a 2 g sodium diet. Positive hepatitis C with viral load over 500,000 with genotype 3. Hepatitis B negative. Patient on vitamin E 400 units daily for antioxidant effect. Plan is to start treatment for hepatitis C. Follow-up in 2 months. 08/11/2020: Paracentesis performed under ultrasound guidance removed approximately 6 L of a ascitic fluid. Peritoneal fluid Gram stain and cultures are negative. 09/09/2020 to 09/10/2020: Inpatient admission at [facility] due to disseminated Lyme disease. Likely tick exposure with copious numbers of flat macular patches present on back, chest, torso/abdominal wall/legs and arms; oral cavity, face, neck, palms and soles are spared. Patient had improvement of symptoms with IV doxycycline and was discharged to home to complete a total of 21 days of doxycycline. Patient also has history of cirrhosis secondary to hepatitis C requiring paracentesis - no paracentesis while inpatient. Patient also has history of portal vein thrombosis and is on warfarin (follows with anticoag clinic at [facility]). 10/03/2020: Ultrasound-guided paracentesis was performed due to clinical history of ascites with a removal of 6 L of ascites. 10/26/2020: Started 12-week course of Mavyret. Followed by anti-coagulation clinic at [facility] for INRs 11/03/2020: US abdomen demonstrated small to moderate abdominal ascites - no paracentesis was conducted secondary to lower volume at patient request 01/19/2021: Hepatitis C virus undetectable - repeat testing in12 weeks 03/12/2021: Ultrasound paracentesis reviewed with removal of 6 L of serous ascites. No evidence of SBP. Received communication from primary care physician who ordered paracentesis the patient hadextensive weight gain and abdominal distention. She stopped taking some of her diuretics 01/2021. She had been instructed to retake her diuretics 07/20/2021: GI office visitnotes are reviewed from Dr. Zambrano review patient plan of care dueto history ofcirrhosis, ascites, portal vein thrombosis, hepatitis C following treatment of Mavyret. Patient stableat the time of this assessmentwith no recommended care plan changes. Discussed Cologuard due to reluctance for colonoscopy. Follow-up in 6 months. 09/28/2021:Chart note reviewed related toepisodes of lightheadedness with standingpresumed secondary to blood pressure. Reduce Lasixdose from 40 mg daily to 20 mg daily. Lightheadedness improved with decreased diuretic however patient had gained almost 4 kg with increased abdominal fullness and bilateral lower extremityedema. Lasix increasedfrom 20 to 40 mg and patient sent back to GI for input 10/19/2021 GI OV: the patient presents today with her youngest sonfor routine follow-up ofcirrhosis secondary to hepatitis Cwith portal veinthrombosis on Coumadin. She reports that she has been compliant herdiuretic medications including Lasix 40 mg dailyand spironolactone 100 mg daily. Hydrochlorothiazide 50 mg,instructions to take 2 tablets p.o. daily,has been held since 04/2021. She denies any abdominal pain. She reports her abdomen has been bloated and tight particularly in the evenings. She is also complaining of mid to lower back pain and right hip pain. Having bowel movement daily with nomelena or hematochezia. She reports herweights at home have ranged from 2 40-2 48. She states overall she just feels like she is having joint aches. She is having particularlyproblematicbilaterallower extremity edema. Her right foot and ankleis getting more swollen. She states her lower extremities are tight and dark in color. Sometimes to get m ore swollen and she will wear compression socks.Denies any confusion, brain fog, fatiguewith family concurring. She has had episodes of lightheadedness particularly when gardening. She did downplay some of the symptoms but alsostates that she has days where she feels as though she is just so tired and lightheaded that she has to go back to bed. 04/30/2022 GI OV:Patient presents today with her son with her son for a with her son for follow-up ofcirrhosis withhistory of hepatitis,ascitesrequiring paracentesis,portal vein thrombosis. She reports she has been doing well since her last office visit. She did receive approval for disability about 2 months ago. This is a relief for her. She did see HPI and was diagnosed with chronic vascular insufficiency. She has been intermittently wearing compression socks which do help with this will help with the swelling in her lower legs. Denies fever, odor, chills, night swea ts., Chills, night sweats. Does have ongoing fatigue. Weight continues to fluctuate with weight in the office today 113.7 kg. Denies dysphagia, heartburn. She is on Coumadin for history of portal vein thrombosis and follows with the coagulation clinic at [facility]. No NSAID use. Reports intermittent left lower quadrant abdominal pain that is worse in the cold. Bowel movement 1-2 times daily. Denies melena or hematochezia. 05/06/2022: RUQ US demonstrated cirrhotic liver with trace right upper quadrant ascites. 05/06/2022: Ultrasound duplex portal and hepatic veins due to history of portal vein thrombosis demonstrated hepatic veins, portal veins, IVC and splenic vein are patent with no thrombus identified. 10/28/2022 GI OV: Patient presents todayfor follow-up ofcirrhosis withhistory of hepatitis,ascitesrequiring paracentesis,portal vein thrombosis. She reports she has been doing well since her last office visit.She did not complete ordered EGD. She reports that she was told by her family doctor that this was not needed. She states she has had some intermittentback pain and bilateral hip pain. The swelling in her legs issignificantly improved. She continues compliance withLasix and spironolactone. She did have an inpatient admission for what sounds like left lower extremity cellulitis. She denies any specific abdominal pain,bilateral lower extremity swelling, abdominal ascites,bowel movement difficulty, melena, hematochezia. She has lost approximately5 kg since last office visitthrough intentional weight loss. We spenta large amount of her appointment today discussing cirrhosis. 11/02/2022 to 11/05/2022: Inpatient [facility] notes are reviewed for patient with history of hepatitis C with cirrhosis of the liver and portal vein thrombosis on Coumadin, DM 2, GERD for admission due to acute pancreatitis without pancreatic pseudocyst. Her admission was complicated due to strep bacteremia with ID consulted recommending Rocephin 2 g IV x14 days. Patient has known prior occurrence of acute pancreatitis. 11/02/2022: CT of the abdomen pelvis with IV contrast was obtained due to history of fever, abdominal pain, cirrhosis which demonstrated 1. Hepatic cirrhosis 2. Acute pancreatitis without pancreatic pseudocyst 3. Intra-abdominal ascites likely reactive in nature 4. Hepatic cirrhosis with portal hypertension. 12/05/2022: Fibroscan obtained due to history of hepatitis C demonstrated CAP score 244, 23.7 kPa, F4 (cirrhotic liver). 12/10/2022 GI OV:The patient presents today for follow-up of cirrhosis secondary to hepatitis C, portal vein thrombosis,recent FibroScanand inpatient admission due to acute pancreatitis. Results were reviewed with patient todaywithassistance of language line parts interpreter. The patientco ntinues with Lasix and spironolactone. Shehas beenexperiencingsome low blood pressures at times and is experiencing some dizziness intermittently. She is currentlyon no specific blood pressure medications including a beta- william. Shedenies any abdominal pain, bilateral lower extremity swelling, abdominal ascites, bowel movement difficulties, melena, hematochezia. She would liketo know if her ultrasound demonstrated gallstones. Her laboratory testing including AFP and hepatitis C viral load was not obtained in the interim since last office visit. She doesfollow with the anticoagulation clinicdue to chronic Coumadin due to her portal vein thrombosis history. She is agreeable today to EGDafter review againof cirrhosis. 01/15/2023 EGD: Grade II esophageal varices. Portal hypertensive gastropathy Non-bleeding gastriculcer with no stigmata of bleeding. Non-bleeding duodenal ulcer with no stigmata of bleeding. No specimens collected. 02/18/2023 OV ([place]): Patient returns todayin follow-up after EGD. Results above were discussed. She states that she feels like she islooking better. She admits to occasional nausea without vomiting. Though she states this is not constant. She continues to have some left-sidedepigastric pain. After her EGD she was recommended to begin Nexium. She has been taking this forabout 1 month. Otherwise she denies symptoms ofdecompensated cirrhosis such as ascites(increased girth size or fluid on the stomach), jaundice, icterus,pruritus, etc. 05/12/2023 US Complete: 1. Cirrhosis without hepatic mass or ascites identified. 2. Splenomegaly suggestive of portal venous hypertension. 3. No cholelithiasis. 07/01/2023 EGD: Grade II esophageal varices. Portal hypertensive gastropathy. Erythematous mucosa in the antrum, biopsied. Non-bleeding duodenal ulcers. Path: Positive for H pylori 07/03/2023 Care Message: Pt made aware to begin Quad therapy for treatment. 07/16/23 OV ([place]): Patient returns today for follow-up after recent EGDwhen her left upper quadrant pain did not resolve. Recent EGD was reviewed as noted above. Patient is about nursing home through her quad therapy and reports resolution of her left upper quadrant abdominal pain now. She states otherwise she is normal with no big changes to her chronic health. She does complain of itching of her dry skin on her left lower leg. Cirrhosis history Diagnosis: Cirrhosis related to hepatitis C (completed treatment with Mavyret end of 2020) FibroTest: 08/2020 F2, [id number] but with clinical evidence of cirrhosis FibroScan: 11/2022 CAP score 244, 23.7 kPa, F4 Liver biopsy: n/a Paracentesis: last performed 02/2021 Diuretics: Lasix 40 daily prn, spironolactone 100 mg daily Other livermedications: vitamin E 400 IU daily Alcohol use: none Vaccinations: only 1 dose hep B and not vaccinated for hep A - declines additional vaccination HCV: Negative 12/11/2022 HCC surveillance EGD: Completed 06/30/2022 EGD, colo deferred AFP: 12/11/2022 3.9 Liver US: 04/2023 Social history: She is a nonsmoker. Denies alcohol use. Denies recreational drugs including marijuana. Patient is . She does not work outside of her home. No further complaints or concerns today. Physical Exam Vitals & Measurements BP:122/64 HT:166cm WT:109.500kg(Dosing) WT:109.5kg BMI:39.74 General:Alert and oriented, No acute distress, appears stated age HENT:Normocephalic, normal hearing Respiratory: Respiration are non-labored, pt speaking in complete sentences,and no evidence of respiratory distress is noted Integumentary:Exposed skin viewable is dry and intact Psychiatric:Cooperative, appropriate mood & affect, Normal judgement Assessment/Plan Body mass index [BMI] 39.0-39.9, adult Cirrhosis of liver Duodenal ulcer Esophageal varices Hepatitis C Portal vein thrombosis Language line was used today for communicationin [place]. Xochilt [id number] The patient is a pleasant 62-year-old female who presents today to follow- up after recent EGD. Patient'sOctober EGD demonstrated both gastric and duodenal ulcer. She had been on Nexium for approximately 1 monthwithout complete resolution of her leftsided epigastric abdominal pain.Repeat EGD demonstrated resolution of stomach ulcers, but + H. Pylori. Pt is current on quad therapy: 1.Continue Pantoprazole 40 mg twice daily x 14 days 2.Bismuth subsalicylate 525mg (Pepto Bismol) four times daily x 14 days - must chew this medication 3.[id number] mg po twice daily x 14 days 4.Metronidazole 500mg twice daily for 14 days - Confirmation oferadication of H. pylori infection with stool H. pylori ordered- Should be performed 4 weeks after completion of quad therapy. Pt advised after 08/22. Pts chronic issues were not addressed today, she is due for her routine 6 month appt in Nov after October labs. -05/12/2023 US Complete: 1. Cirrhosis without hepatic mass or ascites identified. 2. Splenomegaly suggestive of portal venous hypertension. 3. No cholelithiasis. 07/01/2023 EGD: Grade II esophageal varices. Portal hypertensive gastropathy. Erythematous mucosa in the antrum, biopsied. Non-bleeding duodenal ulcers. Path: Positive for H pylori - Labs ordered for completion in Oct. -Recenthepatitis Cviral load was negativeand AFP was within normal limits. - Patient s/p treatment with Mavyret 12week therapy in 2020. - INRs are being followed by the [facility] anticoagulation clinic. - The patient demonstrates an F2 fibrosis testing but clinical evidence of cirrhosis. - Fibroscan emonstrated cirrhosis withconcerns for portal hypertension - Patient declinesfurther hepatitisA or B vaccination Patient would likely benefit from addition of a beta-william due to concerns for portal hypertensionhowever struggles with some hypotensionat baselinewillreaddress this at Nov Appt. Portal vein thrombosis: - Continue warfarin managed by the [facility] anticoagulation clinic Ascites: - Resolved on U/S, likely 2/2 hepatitis C. - Continue Diuretic regimen currently Furosemide 40 mg by mouth daily prn, Spironolactone 100 mg bymouth daily. - Instructed to continue to follow a low-sodium diet (less than 2 g daily). Colorectal screening: - Patient's mother with history of colon cancer and due to disease at age of 81. - Patient has never had colonoscopy.- Declines colonoscopy today GI follow up inSept, sooner if needed. I have spent 39 minutes in evaluation, education and documentation of this pt in both face to face and non-face to face activities. Problem List/Past Medical History Ongoing Ascites Back [...] guidance| Service Date: 10/13/2020hest X-ray| Service Date: 06/21/2021Paracentesis| Service Date: 1Paracentesis| Service Date: 1Paracentesis| Service Date: 03/2020 Medications amoxicillin(amoxicillin 500 mg oral tablet), 500 mg= 1 tab, PO, q12h bismuth subsalicylate(bismuth subsalicylate 525 mg oral tablet), 525 mg= 1 tab, PO, qid dapagliflozin(Farxiga 5 mg oral tablet), 5 mg= 1 tab, PO, Daily, 1 refills diabetes supplies(One Touch Ultra 2 Glucose Monitor), See Instructions diabetes supplies(One Touch Delica Plus (33G) Lancets), See Instructions, 11 refills diabetes supplies(One Touch Ultra Test Strips 100 ct), See Instructions, 11 refills empagliflozin(Jardiance 10 mg oral tablet) furosemide(furosemide 40 mg oral tablet), 40 mg= [...] due09/20/22and every 1year Due Adult COVID-19 Vaccination due07/16/23Unknown Frequency Adult Social Determinants of Health Screening due07/16/23Unknown Frequency Adult Tdap/Td Vaccine due07/16/23Unknown Frequency Breast Cancer Screening due07/16/23Unknown Frequency Cervical Cancer Screening due07/16/23Unknown Frequency Colorectal Cancer Screening due07/16/23Unknown Frequency Pneumococcal Vaccine Adults and Adolescents with Chronic Illness due07/16/23One-time only Shingles Vaccine due07/16/23One-time only Due In Future Diabetes Management A1c not due until05/05/24and every 366day Satisfied(in the past 1 year) Satisfied Body Mass Index on07/16/23.Satisfied by PARAG Justice Erin Diabetes Management A1c on05/05/23.Satisfied by Contributor_system, [facility] Nephropathy Management on10/17/22.Satisfied by Contributor_system, [facility] Diabetic Eye Exam on09/02/22.Satisfied by RACHEL Mario Lynnae Electronic Signature on File Electronically Reviewed/Signed by: Jazlyn Branch PA-C Author Signature Dt/Tm:07/16/2023 10:05 AM Division of Gastroenterology Electronically Reviewed/Signed by: Cristiano Roy MD Cosigner Signature Dt/Tm: 07/16/2023 10:47 AM Division of Gastroenterology [facility] Patient Care team information Care Team Personnel Name: MD Cherelle, Domingo Iqbal Position: Physician - Gastro Member Role: Lifetime Relationship Address: Address: [address] [place] [address] Name: DO Plaza Allison B Position: Physician - Family Med Member Role: Primary Care Provider Address: Address: [address] [place] [address] [place] Name: GLEN Phan Lynn Position: Physician Autocad Detailer Exempt - Vasc Surg Member Role: Lifetime Relationship Address: Address: [address] [place] [address]"
[2023-07-28 07:30] LABS: INR 2.6 (0.9-1.1); Prothrombin Time 25.7 Seconds (9.0-12.0)
[2023-07-28 07:39] LABS: Basophils # (auto) 0.02 K/uL (0.00-0.20); Basophils % (auto) 0.9 %; Eosinophils # (auto) 0.19 K/uL (0.00-0.50); Eosinophils % (auto) 8.6 %; Hematocrit (blood only) 39.2 % (37.0-47.0); Hemoglobin 13.1 g/dl (12.0-16.0); Immature Granulocytes # (auto) 0.01 K/uL (0.01-0.20); Immature Granulocytes % (auto) 0.5 %; Lymphocytes % (auto) 22.6 %; Mean Corpuscular Hemoglobin 30.1 pg (25.0-34.0); Mean Corpuscular Hgb Conc 33.4 g/dL (32.0-36.0); Mean Corpuscular Volume 90.1 fL (80.0-100.0); Monocytes # (auto) 0.37 K/uL (0.11-0.59); Monocytes % (auto) 16.7 %; Neutrophils # (auto) 1.12 K/uL (1.40-6.50); Neutrophils % (auto) 50.7 %; Platelet Count 39 K/uL (130-400); RDW Standard Deviation 49.3 fL (36.4-46.3); Red Blood Count 4.35 M/uL (4.20-5.40); White Blood Count 2.21 K/ul (4.8-10.8)
[2023-07-28 07:49] LABS: Albumin Globulin Ratio 0.9 (0.9-2); Albumin Level 2.8 gm/dl (3.4-5.0); BUN Creatinine Ratio 19.4 (10-20); Bilirubin,Total 1.4 mg/dl (0.2-1.0); Calcium 7.1 mg/dl (8.6-10.3); Creatinine Clr Calc Pharmacy 196.8 ml/min; Est GFR (Non-African American) 114.8 ml/min; Globulin 3.2 gm/dl (2.5-4.0); Potassium 2.9 mmol/L (3.5-5.1)
[2023-07-28 08:54] LABS: Estimated Average Glucose 189 mg/dl; Hemoglobin A1C 8.2 % (4.5-5.6)
[2023-07-28 09:09] LABS: Magnesium 1.7 mg/dl (1.7-2.4)
[2023-07-28] MEDS: POTASSIUM CHLORIDE CRTAB 20 MEQ TABCR PO STA (09:15)
[2023-07-28] MEDS: POTASSIUM CHLORIDE / WTR 10 MEQ/100 ML PLCT IV SCH (09:16)
--- NOTE | 2023-07-28 14:52 | Oncology Consultation ---
Date of Consultation July 28, 2023 Assessment & Plan (1) Portal vein thrombosis: The patient has been on Coumadin long time we identified the patient has new onset portal vein thrombosis. In the absence of antiphospholipid antibody syndrome it may be prudent to switch over the patient from warfarin to a medic ation like Eliquis as she developed a blood clot while she is on Coumadin. My only issue with direct oral anticoagulants will be the fact that they are extremely expensive and depending upon her financial situation it may be financially prohibitive. In that case we may have to utilize something like enoxaparin. However will be with her primary hospital internal medicine team. (2) Lump of right breast: . This can be worked outpatient with a mammogram, diagnostic ultrasound as well as a biopsy. Usually CT scans do not delineate Breast masses very well. Plan thank you for this interesting hematological consult. a total of 60 minutes were spent parental counseling, coordination of care and review of records. History of Present Illness Reason for Consultation: portal vein thrombosis Attending Physician: Frank Mazariegos, History of Present Illness the patient is a very pleasant 62-year-old woman with a past medical history of Syndrome, hepatitis C, ascites who presented [facility] with increased abdominal pain. She had a CT of the abdomen pelvis with injection new onset thrombosis. She has been on warfarin for a long time because of her past history of blood clots however there is never been a history of portal vein thrombosis. Hematology has been consulted to assist in management of this patient with newly identified portal vein thrombosis in the setting of Coumadin. She also has been noted to have esophageal varices, cirrhosis of the liver. She reports no recent bleeding or bruising. Reports no fever or chills. There is no evidence of blood clots anywhere else. She did have a CT of the head which revealed microvascular changes probably consistent with chronic infarcts. Reports no nausea vomiting. No changes in appetite at this time. In the CT scan the patient was also noted to have an incidental finding of the breast. This was concerning for mass in the right breast, 1.5 cm in size. No nipple discharge. Allergies Allergy/AdvReac Type Severity Reaction Status Date / Time menthol Allergy Severe Anaphylaxis Verified 07/01/23 14:36 mint Allergy Severe Anaphylaxis Verified 07/01/23 14:36 Home Medications Medication Instructions Recorded Confirmed Type furosemide 40 mg tablet 0 mg PO QAM 10/03/20 07/26/23 History empagliflozin 10 mg tablet 0 mg PO QAM 05/27/22 07/26/23 History (Jardiance) spironolactone 100 mg tablet 0 mg PO QAM 05/27/22 07/26/23 History oxycodone 5 mg tablet 0 mg PO Q6H PRN moderate-severe 01/09/23 07/26/23 History pain vitamin E 400 unit tablet 400 unit PO QAM 01/09/23 07/26/23 History esomeprazole magnesium 20 mg 20 mg PO QAM 02/24/23 07/26/23 History tablet,delayed release (Nexium 24HR) warfarin 5 mg tablet See Rx Instructions PO QPM 06/26/23 07/26/23 History pantoprazole 40 mg tablet,delayed 40 mg PO BID 07/16/23 07/26/23 History release dapagliflozin propanediol 10 mg 10 mg PO DAILY 07/26/23 07/26/23 History tablet (Farxiga) gabapentin 100 mg capsule 100 mg PO UD 07/26/23 07/26/23 History gabapentin 300 mg capsule 300 mg PO UD 07/26/23 07/26/23 History ondansetron 4 mg disintegrating 4 mg PO TID PRN n/v 07/26/23 07/26/23 History tablet Patient History Medical History (Updated 07/27/23 @ 06:19 by Farrukh Waddell MD) Portal vein thrombosis (dx in 2020) currently on warfarin. Hx of sepsis Hx of small bowel obstruction Hx of Lyme disease treated, no current issues Hx of hepatitis C dx in [place] in 2019 during a vacation - [facility] patient did have padmini tment in the past unsure if it was October 2020 or October 2021. Edema bilateral legs, rare Hypothyroidism hx of taking levothyroxine in November 2021 -- no longer takes. 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 Interior Finish Required: Yes Beliefs That Will Affect Care: None marital status: Single marital status details: from ; he lives in [facility]; he has HepC Current Living Situation: Family Current Living Situation Comment: lives with son in an apartment current occupational status: retired How many Children do You have: 2 Other Information That Helps Us Care for You: No other: In [place] 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; 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[facility] x 12 year Feels Safe at Home: Yes Safety Concerns: Feels Safe At This Time Assistive Devices: None Review of Systems Review of Systems: All systems reviewed & are unremarkable except as noted in HPI & below Constitutional: as per Subjective / HPI Eyes: as per Subjective / HPI Ear, Nose, Mouth, Throat: as per Subjective / HPI Respiratory: as per Subjective / HPI Cardiovascular: as per Subjective / HPI Gastrointestinal: as per Subjective / HPI Genitourinary: as per Subjective / HPI Musculoskeletal: as per Subjective / HPI Integumentary: as per Subjective / HPI Neurologic: as per Subjective / HPI Endocrine: as per Subjective / HPI Hematologic / Lymphatic: as per Subjective / HPI Physical Exam Constitutional: WD/WN, vitals as above Eyes: PERRL, conjunctivae normal, anicteric sclerae ENMT: external ear and nose normal, oropharynx normal Neck: trachea midline, no thyromegaly Respiratory: normal respiratory effort, lungs clear to auscultation Cardiovascular: RRR, no murmur, no edema Gastrointestinal (Abdomen): normal bowel sounds, soft, nontender, no hepatosplenomegaly Musculoskeletal: no cyanosis or clubbing, extremities motor strength 5/5 Skin: no rashes, warm and dry Neurologic: patellar DTR's 2+ bilat, sensation intact Results & Data Vital Signs (Past 12 Hours) Vital Signs Temp Pulse Pulse Resp BP Pulse Ox O2 Del Method 07/28/23 11:18 36.5 C 76 18 126/82 94 Room Air 07/28/23 08:03 70 07/28/23 07:26 36.5 C 67 18 104/69 95 Room Air 07/28/23 03:51 36.6 C 71 16 112/69 91 Room Air
--- NOTE | 2023-07-28 16:46 | Hospitalist Progress Note ---
Date of Service July 28, 2023 Assessment & Plan (1) Helicobacter pylori gastritis: Plan: Abd pain/N/V/H pylori gastritis: CT A&P w/ large esophageal varices, splenomegaly, small volume ascites, portal HTN, gastritis, nonspecific wall thickening R colon, mesenteric edema. Mildly raised Tbili. Patient with recent diagnosis of Helicobacter pylori infection after recent endoscopy. Patient was not aware she needed to take antibiotics for this. Presented with abdominal pain. Started on triple therapy - amoxicillin, clarithromycin, and pantoprazole. Most likely diagnosis is untreated H. pylori gastritis as symptoms improving with treatment. Patient did test positive for norovirus which may be a contributing factor. Tolerating PO, continue to advance diet Continue triple therapy Contact precautions Cirrhosis of the liver with Grade II esophageal varices: Would optimize medically prior to discharge. Will emphasize importance of - furosemide, spironolactone therapy. Patient Grade II esophageal varices seen on endoscopy would likely benefit from non-selective beta blockage. Would start nadolol 20 mg and up-titrate as tolerated. Portal vein thrombosis: Patient with past history of non-occlusive thrombus in main portal vein, portosplenic confluence, and SMV from 03/2020. Likely not the cause of patient's current hospitalization. Patient is on warfarin therapy - follows with [facility] clinic. Patient seen by hematology during this hospitalization - likely no new clot. Recommend switching to DOAC therapy. Heme on board - appreciate recs Continue warfarin for now Vertigo: New onset vertigo with this episode as well as generalized weakness. Nystagmus on exam. CT Head and MRI Brain without acute findings. Most likely nystagmus in the setting of chronic liver failure. Gabapentin held during admit. Pleural effusion, right: Seen on CT, likely related to cirrhosis. HDS without increased work of breathing or new oxygen requirement. Continue to monitor. Diabetes: Recently switched from Jardiance to Farxiga due to insurance coverage. Holding while inpatient. SSI. Lump on R breast: CT with indeterminant 1.6cm enhancing lesion questioned in inferior aspect of R breast. Recommend diagnostic mammogram outpatient. DVT: Warfarin continued Dispo: Med/tele Diet: Advance as tolerated, T2DM carb consistent. (2) Portal vein thrombosis: (3) Vertigo: (4) Pleural effusion, right: (5) Abnormal CT of the abdomen: (6) Cirrhosis of liver: (7) Diabetes: (8) Lump of right breast: Admission and Anticipated Discharge Date Admission Date: July 26, 2023 Supervising Physician Co-Signing Physician Notes I personally examined the patient and verified all garcia points of history and exam, discussed case, and agree with decision making with Dr Jimenez seen with assistance of bellperson (Pablo) - Patient notes that she still has some nausea but it is getting better. Maybe a little bit of dry heaving here and there but no vomiting. And also she was able to eat a full lunch. Belly overall feeling better. Vitals noted, in general she is awake and alert pleasant no distress. HEENT normocephalic atraumatic mucous membranes moist. Breathing unlabored no accessory muscle use good effort. Skin shows no rashes no pallor or icterus. Neuro without focal deficits. Abdominal pain nausea vomiting -EGD from 07/01/2023 showed severe chronic gastritis with positive H. pylori stain. She notes that she did not get the treatment for this. I suspect she is starting to feel better due to treating the H. pylori. There is of course the question of whether or not new/progressive portal vein thrombosis may be contributing, but given that she is starting to feel better, given that we are treating the H. pylori gastritis, given that she was not before, and given that not all portal venous thromboses are symptomaticI much more strongly suspect the H. pylori gastritis to be the culprit. Appreciate heme-onc input,and can definitely consider switch to DOAC if affordable hopefully home tomorrow as long as p.o. intake continues to improve Subjective Patient seen at bedside this afternoon with bellperson services via video. Patient reports significant improvement. Does have nausea and some diarrhea. No vomiting. Has been able to eat more today. Pain is significantly better. Review of Systems 2 Review of Systems: As per HPI. Physical Exam 2 Physical Exam: Gen: well appearing patient in NAD HEENT: AT NC MMM Resp: CTAB no wheezing no increased work of breathing CV: RRR no m/r/g clinically well perfused Abd: soft, non-distended, diffusely tender to deep palpation, no tenderness to light palpation MSK: no obvious deformities Skin: no rashes or bruising Neuro: alert and oriented Psych: appropriate mood and affect Results & Data Results & Data Vital Signs (Past 12 Hours) Vital Signs Temp Pulse Pulse Resp BP Pulse Ox O2 Del Method 07/28/23 15:44 75 07/28/23 15:37 36.7 C 78 18 123/76 93 Room Air 07/28/23 11:18 36.5 C 76 18 126/82 94 Room Air 07/28/23 08:03 70 07/28/23 07:26 36.5 C 67 18 104/69 95 Room Air Laboratory Results 07/28/23 06:36 07/28/23 06:36 Resident Activity Tracking Resident Involvement: Resident Care Provided Care Provided: Adult Hospital Medicine
--- NOTE | 2023-07-28 17:47 | Billing Data ---
Date of Service July 28, 2023 Coding Level of Care Code 43682 SUB INP/OBS CARE
[2023-07-29 07:13] LABS: INR 3.2 (0.9-1.1); Prothrombin Time 31.7 Seconds (9.0-12.0)
[2023-07-29 07:17] LABS: Basophils # (auto) 0.02 K/uL (0.00-0.20); Basophils % (auto) 0.9 %; Eosinophils # (auto) 0.16 K/uL (0.00-0.50); Eosinophils % (auto) 7.2 %; Hematocrit (blood only) 39.3 % (37.0-47.0); Hemoglobin 13.1 g/dl (12.0-16.0); Lymphocytes # (auto) 0.71 K/uL (1.20-3.40); Lymphocytes % (auto) 32.1 %; Mean Corpuscular Hemoglobin 29.7 pg (25.0-34.0); Mean Corpuscular Hgb Conc 33.3 g/dL (32.0-36.0); Mean Corpuscular Volume 89.1 fL (80.0-100.0); Mean Platelet Volume 13.3 fL (9.4-12.4); Monocytes # (auto) 0.27 K/uL (0.11-0.59); Monocytes % (auto) 12.2 %; Neutrophils # (auto) 1.05 K/uL (1.40-6.50); Neutrophils % (auto) 47.6 %; Platelet Count 44 K/uL (130-400); RDW Coefficient of Variation 14.9 % (11.5-14.5); Red Blood Count 4.41 M/uL (4.20-5.40); White Blood Count 2.21 K/ul (4.8-10.8)
[2023-07-29 07:40] LABS: Albumin Globulin Ratio 0.9 (0.9-2); Albumin Level 2.9 gm/dl (3.4-5.0); BUN Creatinine Ratio 17.9 (10-20); Bilirubin,Total 1.2 mg/dl (0.2-1.0); Calcium 7.5 mg/dl (8.6-10.3); Creatinine Clr Calc Pharmacy 190.1 ml/min; Est GFR (African American) 129.6 ml/min; Est GFR (Non-African American) 111.8 ml/min; Globulin 3.2 gm/dl (2.5-4.0); Potassium 3.5 mmol/L (3.5-5.1); Total Protein 6.1 gm/dl (6.0-8.3)
[2023-07-29] MEDS: nadoloL 40 MG TAB PO SCH (09:19)
--- NOTE | 2023-07-29 10:23 | Hospitalist Progress Note ---
Date of Service July 29, 2023 Assessment & Plan (1) Helicobacter pylori gastritis: Plan: Abd pain/N/V/H pylori gastritis: CT A&P w/ large esophageal varices, splenomegaly, small volume ascites, portal HTN, gastritis, nonspecific wall thickening R colon, mesenteric edema. Mildly raised Tbili. Patient with recent diagnosis of Helicobacter pylori infection after recent endoscopy. Patient was not aware she needed to take antibiotics for this. Presented with abdominal pain. Started on triple therapy - amoxicillin, clarithromycin, and pantoprazole. Most likely diagnosis is untreated H. pylori gastritis as symptoms improving with treatment. Patient did test positive for norovirus which may be a contributing factor. Tolerating PO, continue to advance diet Continue triple therapy Contact precautions Cirrhosis of the liver with Grade II esophageal varices: Would optimize medically prior to discharge. Will emphasize importance of - furosemide, spironolactone therapy. Patient Grade II esophageal varices seen on endoscopy would likely benefit from non-selective beta blockage. Would start nadolol 20 mg and up-titrate as tolerated. Portal vein thrombosis: Patient with past history of non-occlusive thrombus in main portal vein, portosplenic confluence, and SMV from 03/2020. Likely not the cause of patient's current hospitalization. Patient is on warfarin therapy - follows with [facility] clinic. Patient seen by hematology during this hospitalization - likely no new clot. Recommend switching to DOAC therapy. Heme on board - appreciate recs Continue warfarin for now Vertigo: New onset vertigo with this episode as well as generalized weakness. Nystagmus on exam. CT Head and MRI Brain without acute findings. Most likely nystagmus in the setting of chronic liver failure. Gabapentin held during admit. Pleural effusion, right: Seen on CT, likely related to cirrhosis. HDS without increased work of breathing or new oxygen requirement. Continue to monitor. Diabetes: Recently switched from Jardiance to Farxiga due to insurance coverage. Holding while inpatient. SSI. Lump on R breast: CT with indeterminant 1.6cm enhancing lesion questioned in inferior aspect of R breast. Recommend diagnostic mammogram outpatient. DVT: Warfarin continued Dispo: Med/tele Diet: Advance as tolerated, T2DM carb consistent. (2) Portal vein thrombosis: (3) Vertigo: (4) Pleural effusion, right: (5) Abnormal CT of the abdomen: (6) Cirrhosis of liver: (7) Diabetes: (8) Lump of right breast: Admission and Anticipated Discharge Date Admission Date: July 26, 2023 Results & Data Results & Data Vital Signs (Past 12 Hours) Vital Signs Temp Pulse Pulse Resp BP Pulse Ox O2 Del Method 07/29/23 08:14 71 07/29/23 07:53 36.7 C 69 16 119/74 95 Room Air 07/29/23 03:57 36.7 C 72 16 115/68 93 Room Air 07/29/23 01:48 81 07/28/23 23:55 Room Air 07/28/23 22:48 36.8 C 79 18 107/65 92 Room Air
--- NOTE | 2023-07-29 12:44 | Discharge Summary ---
Date of Service July 29, 2023 Admission HPI Per Admitting Provider Inessa Toscano is a 62 year old female who presents to the ER with sudden onset abdominal pain followed by generalized myalgias. History obtained with both her son and patient using art therapy specialist (Indy #[id number]). She reports symptoms started suddenly at 2am this morning with abdominal distension and pain. Throughout the night this was 7-8/10, currently 2-3/10. Constant pain with radiation to her back. Followed by generalized weakness and aching everywhere especially in her joints. Initially had some neck and headache which has now resolved. She reports dizziness when she closes her eyes or moves her head from side to side. Not the room spinning but more unbalanced feeling or the room feels moving. One episode of loose stool this morning which is unusual for her. Prior to this happening she did feel more fatigued around 8pm last night and more bloated around 11pm last night. She was previously diagnosed with h. pylori gastritis but reports never taking the medications for this. Admission Exam Per Admitting Provider Constitutional: WD/WN, vitals as above Eyes: PERRL, conjunctivae normal, anicteric sclerae EOM intact bilaterally (without diplopira) and + nystagmus (Bilateral on lateral gaze slow beating to right, fast beating to left ) ENMT: external ear and nose normal, oropharynx normal Ears: + unable to visualize TM (right wax); no TM abnormality (left) Respiratory: normal respiratory effort, lungs clear to auscultation Cardiovascular: Rate/Rhythm: regular rate and regular rhythm Heart Sounds: no murmur Extremities: + pedal edema (1+ b/l equal) Gastrointestinal (Abdomen): Inspection/Auscultation: abdomen normal to inspection and + abdomen distended Percussion/Palpation: + abdomen tender (upper abdominal) and abdomen soft; no guarding and abdomen not rigid Musculoskeletal: no cyanosis or clubbing, extremities motor strength 5/5 Skin: no rashes, warm and dry Neurologic: moves all extremities and awake; no focal motor deficits and not confused Speech / Cognition: normal speech Motor/Sensory: no tremor and no pronator drift Psychiatric: A+Ox3, euthymic affect Genitourinary: no CVA tenderness Principal Diagnosis h pylori gastritis, norovirus Discharge Exam Gen: well appearing patient in NAD HEENT: AT NC MMM Resp: CTAB no wheezing no increased work of breathing CV: RRR no m/r/g clinically well perfused Abd: soft, non-distended, non-tender MSK: no obvious deformities Skin: no rashes or bruising Neuro: alert and oriented Psych: appropriate mood and affect Discharge Data Allergies Allergy/AdvReac Type Severity Reaction Status Date / Time menthol Allergy Severe Anaphylaxis Verified 07/01/23 14:36 mint Allergy Severe Anaphylaxis Verified 07/01/23 14:36 Consultations 07/27/23 11:59 Consult Hematology Routine Ordered Studies Chest X-Ray 07/26/23 11:32 FINDINGS: An AP, portable, upright chest radiograph is compared to study dated 12/18/2022. The heart is enlarged. There is pulmonary vascular congestion. There is a layering right pleural effusion and bibasilar consolidation. No pneumothorax is seen. The skeletal structures are osteopenic. The bony thorax is grossly intact. Advanced arthritic change is noted in the right shoulder. IMPRESSION: 1. Cardiomegaly with evidence of congestive failure. 2. Layering right pleural effusion and bibasilar consolidation. The airspace opacities could represent atelectasis and/or pulmonary edema. Correlate clinically for evidence of a superimposed pneumonia. Radiographic follow-up to resolution is recommended. Abdomen/Pelvis CT 07/26/23 11:33 FINDINGS: Lung bases: The heart is enlarged and without pericardial effusion. There is a tzyxe-or-dsopuzzh right pleural effusion with dependent atelectasis. Trace pleural effusion is seen on the left. There is a small hiatal hernia. Large esophageal varices are noted. There is an indeterminant 1.6 cm enhancing nodule in the inferior aspect of the right breast seen on image #38. Liver: The contrast-enhanced liver is cirrhotic morphology and heterogeneous in attenuation. There is no intrahepatic biliary ductal dilatation. Nonocclusive portal venous thrombus is seen on axial image #111. Nonocclusive thrombus is seen within the intrahepatic left lobe portal vein as seen on image 88. There is trace nonocclusive thrombus in the superior mesenteric vein seen on image #136. Hepatic veins are Patent. There is recanalization of the apparent umbilical vein. Gallbladder: The gallbladder is mildly distended but otherwise normal in appearance. Spleen: The spleen is markedly enlarged, measuring 19.7 cm in length. There are large perigastric varices, as well as perisplenic collaterals. Pancreas: There is peripancreatic infiltration and fluid. The pancreas enhances homogeneously any duct is normal in caliber. Adrenal glands: Unremarkable. Kidneys: The contrast enhanced kidneys are normal in size and without hydronephrosis. The kidneys enhance symmetrically. Abdominal vasculature: The abdominal aorta is normal in course and caliber noting mild to moderate atherosclerotic calcification. Bowel: The gastric mucosa appears mildly thickened and hyperemic. There Is no bowel obstruction. Wall thickening of the right colon likely represents portal colopathy. The appendix is not visualized. Peritoneum: Mesenteric edema is noted. There is a small volume of abdominopelvic ascites. No intraperitoneal free air seen. Lymphadenopathy: None. Pelvic viscera: The bladder, uterus, and adnexa are normal as visualized. There is fluid within a right inguinal hernia. Skeletal structures: There is mild to moderate lumbosacral spondylosis. Sclerotic change is noted in the sacroiliac joints. No lytic or blastic lesions are seen. IMPRESSION: 1. Cardiomegaly. 2. [id number]-lv-ercxhlqv right and trace left pleural effusions with dependent atelectasis. These are new from 11/03/2022. 3. The liver is cirrhotic in morphology and heterogeneous in attenuation. 4. Large esophageal varices, marked splenomegaly, a small volume of abdominopelvic ascites, and intra-abdominal collateral vessels indicate portal hypertension. 5. There is nonocclusive thrombus within the main portal vein, the left intrahepatic portal vein, and the superior mesenteric vein. This was not seen previously. 6. The gastric mucosa appears thickened and hyperemic. Correlate clinically for evidence of gastritis. 7. Nonspecific wall thickening and edema of the right colon is similar to previous and favors portal colopathy. Correlate clinically. 8. There is mesenteric edema. Fluid and infiltration is seen around the pancreas, and this may be related to generalized fluid overload/edema. Correlate with clinical and laboratory findings for evidence of pancreatitis. 9. There is an indeterminant 1.6 cm enhancing lesion questioned in the inferior aspect of the right breast. This is not well assessed by CT. Nonemergent/outpatient follow-up with mammography is recommended for further assessment. 10. Additional findings as above. Head CT 07/26/23 17:19 FINDINGS: Brain parenchyma: There is minimal microangiopathic disease. There is no hemorrhage, mass effect, or evidence of acute territorial ischemia by CT criteria. Duncan-white matter differentiation is preserved. No extra-axial fluid collection is seen. Ventricles, sulci, cisterns: Normal in configuration. Intracranial vasculature: There is atherosclerotic calcification of the cavernous carotid arteries. Calvarium: Unremarkable. Sinuses and mastoids: Findings suggest previous paranasal sinus surgery. There is trace mucosal thickening within the sphenoid sinuses. The mastoid air cells are well pneumatized. Orbits: The bony orbits are grossly intact. IMPRESSION: There is no hemorrhage, mass effect, or evidence of acute territorial ischemia by CT criteria. Brain MRI 07/27/23 20:29 FINDINGS: There are no areas of restricted diffusion to suggest acute inf arction. The midline structures are intact. Mild mucosal thickening within the right maxillary sinus. The orbits are unremarkable. There are few scattered punctate foci of T2 hyperintensity seen within the periventricular and subcortical white matter of the supratentorial brain. These are nonspecific but favor mild microvascular ischemic change. Mastoid air cells are clear. The ventricles and sulci are within normal limits for age. There is no mass, hematoma, midline shift. The major vascular flow-voids at the skull base are well maintained. IMPRESSION: 1. No acute infarct or intracranial hemorrhage. 2. There are few scattered punctate foci of T2 hyperintensity seen within the periventricular and subcortical white matter of the supratentorial brain. These are nonspecific but favor mild microvascular ischemic change. Hospital Course (1) Helicobacter pylori gastritis: Abd pain/N/V/H pylori gastritis: CT A&P w/ large esophageal varices, splenomegaly, small volume ascites, portal HTN, gastritis, nonspecific wall thickening R colon, mesenteric edema. Mildly raised Tbili. Patient with recent diagnosis of Helicobacter pylori infection after recent endoscopy. Patient was not aware she needed to take antibiotics for this. Presented with abdominal pain. Started on triple therapy - amoxicillin, clarithromycin, and pantoprazole. Most likely diagnosis is untreated H. pylori gastritis as symptoms improving with treatment. Patient did test positive for norovirus which may be a contributing factor. Continue with triple therapy for 2 weeks total. Test of cure to be done outpatient. Patient to f/u with PCP. Cirrhosis of the liver with Grade II esophageal varices: Would optimize medically prior to discharge. Will emphasize importance of furosemide and spironolactone therapy. Patient with grade II esophageal varices seen on endoscopy would likely benefit from non-selective beta blockage. Would start nadolol 20 mg and up-titrate as tolerated on an outpatient basis. Portal vein thrombosis: Patient with past history of non-occlusive thrombus in main portal vein, portosplenic confluence, and SMV from 03/2020. Likely not the cause of patient's current hospitalization. Patient is on warfarin therapy - follows with [facility] clinic. Patient seen by hematology during this hospitalization - likely no new clot. Consider switching to DOAC therapy if not cost-prohibitive. Continue warfarin for now. Vertigo: New onset vertigo with this episode as well as generalized weakness. Nystagmus on exam. CT Head and MRI Brain without acute findings. Most likely nystagmus in the setting of chronic liver failure. Gabapentin held during admit. Can resume on discharge. Pleural effusion, right: Seen on CT, likely related to cirrhosis. HDS without increased work of breathing or new oxygen requirement. Continue to monitor. Diabetes: Recently switched from Jardiance to Farxiga due to insurance coverage. SSI while inpatient. Resume home med on discharge. Lump on R breast: CT with indeterminant 1.6cm enhancing lesion questioned in inferior aspect of R breast. Recommend diagnostic mammogram outpatient. (2) Portal vein thrombosis: (3) Vertigo: (4) Pleural effusion, right: (5) Abnormal CT of the abdomen: (6) Cirrhosis of liver: (7) Diabetes: (8) Lump of right breast: Total Time Total Time Spent Total Time Spent (In Minutes): <30 Discharge Plan Discharge Items Patient Disposition: Home - Self-Care Reason For Visit: H. PLYORI, NEW ONSET VERTIGO Discharge Diagnosis: h. pylori gastritis, norovirus Activity: Per Instructions section Non-emergency contact: Primary Care Provider Call non-emergency contact if: you have any medication questions Follow-up/Referrals: Carlos Alberto Guerra DO [Primary Care Provider] - 08/01/23 2:45 pm Diet: Carb Consistent or DM2 Addtl Attending Provider Instructions: You were seen in the hospital for "h. pylori gastritis". We will need to treat this with antibiotics and an acid suppressant. amoxicillin - tab 1 tab three times a day clarithromycin - take 1 tab twice a day pantoprazole - take 1 tab twice a day zofran - as needed for nausea You do also have cirrhosis. You are on several medications for this and we added another medication spironolactone - take 1 tab once a day furosemide - take 1 tab once a day nadolol - take 1/2 tab once a day it will be important to follow up with your primary care provider to confirm adequate treatment of h. pylori Vas osmatrivali v gianfranco'nitse po povodu gastrita H. pylori. Nam pridetsya lechit' eto antibiotikami i kislotopodavitelyami. amoksitsillin po 1 tab trizhdy v den' klaritromitsin prinimat' po 1 tab dva kalli v den' pantoprazol prinimat' po 1 tab dva kalli v den' zofran po mere neobkhodimosti jason toshnote U vas takzhe yest' tsirroz pecheni. Po etomu povodu vy prinimayete neskol'ko lekarstv, i my dobavili yeshche odno lekarstvo. spironolakton prinimat' po 1 tab topher neil v den' furosemid prinimat' po 1 tab topher neil v den' nadolol prinimat' po 1/2 tab topher neil v den' vazhno budet prokonsul'tirovat'sya s vashim lechashchim vrachom, chtoby podtverdit' adekvatnoye lecheniye h. pilori Pending Studies at Discharge: No Stand-Alone Forms: My [facility], Smoking Cessation Medications and DC Order Prescriptions: New amoxicillin 500 mg Capsule 1,000 mg PO TID 12 Days Qty: 72 0RF clarithromycin 500 mg Tablet 500 mg PO Q12 12 Days Qty: 24 0RF nadolol 40 mg Tablet 20 mg PO QAM Qty: 30 0RF Continued warfarin 5 mg tablet See Rx Instructions PO QPM Rx Instructions: 7.5mg daily per [facility] orally daily in the evening; furosemide 40 mg tablet 0 mg PO QAM Rx Instructions: last filled in june 2022. Original directions: 40 mg daily spironolactone 100 mg Tablet 0 mg PO QAM Rx Instructions: last filled February 14, 2023. Original directions: 100 mg daily Jardiance 10 mg Tablet 0 mg PO QAM Rx Instructions: on hold at pharmacy vitamin E 400 unit Tablet 400 unit PO QAM Rx Instructions: otc unable to verify oxycodone 5 mg tablet 0 mg PO Q6H PRN (Reason: moderate-severe pain) Rx Instructions: Filled July 2022 gabapentin 300 mg capsule 300 mg PO UD Rx Instructions: three times daily after completing 100 mg dose(s) for 7 days gabapentin 100 mg capsule 100 mg PO UD Rx Instructions: taper up to 300 mg dapagliflozin propanediol [Farxiga] 10 mg tablet 10 mg PO DAILY pantoprazole 40 mg tablet,delayed release (DR/EC) 40 mg PO BID 12 Days Qty: 24 0RF Rx Instructions: x 14 days (from 07/03/23) ondansetron 4 mg tablet,disintegrating 4 mg PO TID PRN (Reason: n/v) Qty: 20 0RF Held esomeprazole magnesium [Nexium 24HR] 20 mg tablet,delayed release (DR/EC) 20 mg PO QAM Hold Instructions: Resume on 08/11/23. hold while on BID pantoprazole Rx Instructions: otc, unable to verify Discharge Orders: Discharge Order (Routine); Ordered 07/29/23 Ordered By: Sheri Hebert/Other Patient Handouts: A1C, Managing Type 2 Diabetes Admission Data Admit Date/Time: 07/26/23 18:00 Attending Provider: Frank Mazariegos Admit Provider: Farrukh Waddell Primary Care Provider: Carlos Alberto Guerra Other Providers: Roc John Other Interventions: Discharge Summary Assessment (RN) Last Done: 07/29/23 14:23 Supervising Physician Co-Signing Physician Notes I personally examined the patient and verified all garcia points of history and exam, discussed case, and agree with decision making with Dr Jimenez seen with assistance of bank operations officer (Rex) - feeling better and would like to go home. Answered all questions the best my ability. Vitals noted, in general she is awake and alert pleasant no distress. HEENT normocephalic atraumatic mucous membranes moist. Breathing unlabored no accessory muscle use good effort. Skin shows no rashes no pallor or icterus. Neuro without focal deficits. Abdominal pain nausea vomiting -EGD from 07/01/2023 showed severe chronic gastritis with positive H. pylori stain. She notes that she did not get the treatment for this. I suspect she is starting to feel better due to treating the H. pylori. There is of course the question of whether or not new/progressive portal vein thrombosis may be contributing, but given that she is starting to feel better, given that we are treating the H. pylori gastritis, given that she was not before, and given that not all portal venous thromboses are symptomaticI much more strongly suspect the H. pylori gastritis to be the culprit. Appreciate heme-onc input,and can definitely consider switch to DOAC if affordable, And this will be discussed as an outpatient. Safe/stable for home. Otherwise as above Resident Activity Tracking Resident Involvement: Resident Care Provided Care Provided: Adult Hospital Medicine
--- NOTE | 2023-07-29 19:39 | Billing Data ---
Date of Service July 29, 2023 Coding Level of Care Code 72729 IN/OBS DISCH 30 MIN/LESS
== END 2023-07-29 14:24 | disposition home or self-care (01) | DRG 391 ==
LOC: ED 10:51 → EDINP 18:00 → SUATTDRO 18:00 → 2N 20:07

== ENCOUNTER 2024-03-30 23:41 | Inpatient (IN) ==
--- NOTE | 2024-03-31 00:01 | Emergency Department Note ---
Impression & Plan Fever ADMIT ED Provider Note HPI: History obtained from patient and son at bedside. The patient is a 63-year-old female with history of portal vein thrombus, currently on Coumadin, history of cirrhosis secondary to hepatitis C, presents the emergency department with a chief complaint of fever, nausea, and headache. Patient's son is at the bedside and he serves as the filling carrier, he states that the patient developed the symptoms earlier today and they seem to be getting progressively worse. Patient's son states that he took her temperature at home and it was 104 Fahrenheit and therefore he brought her to the ER to be assessed. On arrival here to the ED the patient is alert, she is somewhat listless appearing but she answers my questions appropriately through her son. She states she has some mild upper abdominal pain but otherwise only has a headache, she denies any cough, denies any diarrhea, denies any vomiting. On arrival here to the ED the patient is mildly hypertensive at 150/77, heart rate is 101, patient is febrile on arrival at 39.3, she is saturating at 91% on room air without any increased work of breathing. ROS: - Per HPI Differential Diagnosis: Sepsis, pneumonia, urinary tract infection, COVID-19 infection, influenza A, meningitis, encephalitis, acute cholecystitis, SBP, small bowel obstruction, amongst other potential pathologies. *Outpatient medications and allergy history reviewed. PE: General: Alert, no apparent distress HEENT: Normocephalic, trachea midline Eyes: Extraocular eye movement is intact, no scleral erythema Pulmonary: Clear to auscultation bilaterally, no wheezing Cardio: Regular rate and rhythm GI: Abdomen is soft to palpation, there is moderate distention, mild tenderness to palpation in the upper abdomen without any guarding or rigidity : No suprapubic tenderness MSK: No evidence of trauma or malformation of the extremities, no edema Skin: No evidence of rash Neuro: Alert, no focal deficits Psychiatric: Cooperative INDEPENDENT INTERPRETATIONS: cardiac monitor: (As interpreted by myself): - An order was placed for continuous cardiac monitoring - Patient was noted to be in sinus rhythm with a rate of 105 EKG: (As interpreted by myself): Rate: 109 Rhythm: Sinus tachycardia Intervals: Within normal limits ST changes: No ST elevation Time: 0003 Chest x-ray: (As interpreted by myself): No focal infiltrate Interventions provided in ED: -IV fluid bolus, Tylenol Medical Decision Making: IV was established and lab work obtained, patient was placed on court recording monitor. Blood cultures were drawn in the ED as the patient did have a high fever on presentation. Lab work shows no leukocytosis, hemoglobin is normal, platelet count is reduced at 37 which is baseline for the patient, INR is noted to be slightly subtherapeutic at 1.7, CMP shows no critical findings, renal function appears to be intact, slight hypomagnesemia at 1.6 as well as hypokalemia 3.4. Troponin is mildly elevated at 18.3, procalcitonin is elevated at 1.0. Viral panel testing was obtained and is negative. Chest x-ray does not show any obvious pneumonia per my interpretation. Given that the patient had some hypoxia here in the ED to 88% she was placed on nasal cannula oxygen. I did obtain CT angiography of the chest as well as CT imaging of the abdomen and pelvis with IV contrast that she also had upper abdominal pain. CT imaging of the chest does not show any evidence of pulmonary embolism, there is no obvious pneumonia however right-sided pleural effusion is noted. CT imaging of the abdomen pelvis does not show any evidence of any acute pathology. Mild ascites is noted with changes of portal hypertension. Patient's fever did downtrend here in the ED to 38.7 with Tylenol. She was noted to be hypoxic and therefore was placed on nasal cannula oxygen. Given her hypoxia with pleural effusion, will cover prophylactically with IV antibiotics ceftriaxone and doxycycline. Her abdomen is not rigid on exam, there is mild distention but no guarding or rigidity. Low suspicion for SBP. Viral panel testing is negative, will send tickborne testing as well as the patient does have a documented history of Lyme disease. Patient did initially complain of a headache, she stated this was improved on my reexamination. She does not appear meningitic, she is not an ideal candidate for lumbar puncture in the ED with obese body habitus, platelet count of 37, and being on Coumadin. I think this can be reevaluated if needed on an inpatient basis. Given unclear source of the patient's fever, she was covered with antibiotics and will plan for admission with follow-up on blood cultures. Urinalysis is currently pending at the time of admission but patient denies any dysuria. I discussed the patient's presentation and overall findings with the on-call hospitalist, Dr. Myrick, and the patient was placed for admission in stable condition. Consultants/Discussions held with other healthcare providers: -Hospitalist, Dr. Myrick Disposition discussion held by myself with: -Patient (with utilization of audio filling carrier) and patient's son over the phone Diagnosis: 1. Fever of unknown origin, acute 2. Hypoxia, acute 3. Thrombocytopenia, chronic 4. Cirrhosis 5. Hypokalemia, acute, mild 6. Hypomagnesemia, acute, mild Disposition: Admission Vj Raza DO Emergency Medicine Past Med/Surg History Problem List (Updated 03/31/24 @ 03:54 by Vj Raza DO) Fever (Acute) Lump of right breast Portal vein thrombosis (dx in 2020) currently on warfarin. Abnormal CT of the abdomen Pleural effusion, right Pneumonia (Acute) Diarrhea Vertigo Helicobacter pylori gastritis Bacteremia due to group B Streptococcus Acute pancreatitis (Acute) Morbid obesity with BMI of 40.0-44.9, adult Left leg pain (Acute) Cellulitis of left lower extremity without foot (Acute) Encounter for pre-operative examination Current use of fpc anticoagulation (Chronic) Abnormal LFTs (Acute) UTI (urinary tract infection) (Acute) Rash (Acute) Thrombocytopenia (Acute) Fever (Acute) Disseminated Lyme disease DVT prophylaxis Hip pain Hyponatremia Erythema migrans (Lyme disease) Lyme disease Back pain (Acute) Ascites no longer gets para's , on diurectics Cirrhosis of liver (Acute) Diabetes (Acute) NIDDM Medical History (Updated 03/31/24 @ 03:54 by Vj Raza DO) Hx of sepsis Hx of small bowel obstruction Hx of Lyme disease treated, no current issues Hx of hepatitis C dx in [place] in 2019 during a vacation [facility] patient did have treatment in the past unsure if it was October 2020 or October 2021. Edema bilateral legs, rare Hypothyroidism hx of taking levothyroxine in November 2021 -- no longer takes. 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 Communication Tools: [employer] Professional Required: Yes Beliefs That Will Affect Care: None marital status: Single marital status details: from ; he lives in [facility]; he has HepC Current Living Situation: Family Current Living Situation Comment: lives with son in an apartment current occupational status: retired How many Children do You have: 2 other: In [place] and [place] 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; 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 Feels Safe at Home: Yes Assistive Devices: None Allergies Allergies Allergy/AdvReac Type Severity Reaction Status Date / Time menthol Allergy Severe Anaphylaxis Verified 07/01/23 14:36 mint Allergy Severe Anaphylaxis Verified 07/01/23 14:36 Home Meds Home Medications Medication Instructions Recorded Confirmed dapagliflozin propanediol 10 mg 10 mg PO DAILY 07/26/23 03/30/24 tablet (Farxiga) spironolactone 1 tab PO DAILY 03/31/24 03/31/24 Previous Rx's Medication Instructions Recorded ondansetron 4 mg disintegrating 4 mg PO TID PRN n/v #20 tabs 07/29/23 tablet warfarin 5 mg tablet See Rx Instructions PO QPM #140 02/24/24 tabs Results & Data (ED) Vital Signs Vital Signs - 24 hr 03/30/24 23:43 03/30/24 23:52 03/31/24 00:07 Temperature 39.3 C H Temperature Source Oral Pulse Rate 101 H Pulse Rate [Apical] Pulse Rate from SpO2 Sensor Pulse Rhythm Regular Pulse Rhythm [Apical] Pulse Strength Normal Pulse Strength [Apical] Respiratory Rate 18 Respiratory Effort / Characteristics Non-Labored Respiratory Depth Normal Respiratory Pattern Regular Blood Pressure 150/77 H Blood Pressure [Left Arm] Blood Pressure Mean 101 Blood Pressure Mean [Left Arm] Blood Pressure Position Sitting Blood Pressure Position [Left Arm] Pulse Oximetry 91 92 Oxygen Delivery Method Room Air Nasal Cannula Nasal Cannula Oxygen Flow Rate 3 Sepsis Recent Fever Within 48 Hours Yes Sepsis New/Unexplained Change in Mental Status No Sepsis Action Taken by Nursing Physician Notified 03/31/24 00:15 03/31/24 00:18 03/31/24 00:21 Temperature Temperature Source Pulse Rate 105 H 101 H Pulse Rate [Apical] Pulse Rate from SpO2 Sensor Pulse Rhythm Pulse Rhythm [Apical] Pulse Strength Pulse Strength [Apical] Respiratory Rate 18 Respiratory Effort / Characteristics Non-Labored Respiratory Depth Normal Respiratory Pattern Blood Pressure 149/89 H Blood Pressure [Left Arm] Blood Pressure Mean 109 Blood Pressure Mean [Left Arm] Blood Pressure Position Blood Pressure Position [Left Arm] Pulse Oximetry 88 L Oxygen Delivery Method Nasal Cannula Room Air Oxygen Flow Rate Sepsis Recent Fever Within 48 Hours Sepsis New/Unexplained Change in Mental Status Sepsis Action Taken by Nursing 03/31/24 00:30 03/31/24 00:42 03/31/24 00:44 Temperature Temperature Source Pulse Rate 104 H Pulse Rate [Apical] Pulse Rate from SpO2 Sensor 106 H Pulse Rhythm Pulse Rhythm [Apical] Pulse Strength Pulse Strength [Apical] Respiratory Rate 23 Respiratory Effort / Characteristics Non-Labored Respiratory Depth Normal Respiratory Pattern Blood Pressure 167/78 H 167/78 H Blood Pressure [Left Arm] Blood Pressure Mean 107 92 Blood Pressure Mean [Left Arm] Blood Pressure Position Blood Pressure Position [Left Arm] Pulse Oximetry 97 Oxygen Delivery Method Nasal Cannula Oxygen Flow Rate Sepsis Recent Fever Within 48 Hours Sepsis New/Unexplained Change in Mental Status Sepsis Action Taken by Nursing 03/31/24 00:45 03/31/24 00:51 03/31/24 01:00 Temperature Temperature Source Pulse Rate 112 H Pulse Rate [Apical] Pulse Rate from SpO2 Sensor 112 H Pulse Rhythm Pulse Rhythm [Apical] Pulse Strength Pulse Strength [Apical] Respiratory Rate 30 H Respiratory Effort / Characteristics Non-Labored Non-Labored Respiratory Depth Normal Normal Respiratory Pattern Blood Pressure Blood Pressure [Left Arm] Blood Pressure Mean Blood Pressure Mean [Left Arm] Blood Pressure Position Blood Pressure Position [Left Arm] Pulse Oximetry 96 Oxygen Delivery Method Oxygen Flow Rate Sepsis Recent Fever Within 48 Hours Sepsis New/Unexplained Change in Mental Status Sepsis Action Taken by Nursing 03/31/24 01:00 03/31/24 01:00 03/31/24 01:00 Temperature Temperature Source Pulse Rate 113 H Pulse Rate [Apical] Pulse Rate from SpO2 Sensor 113 H Pulse Rhythm Pulse Rhythm [Apical] Pulse Strength Pulse Strength [Apical] Respiratory Rate 32 H Respiratory Effort / Characteristics Respiratory Depth Respiratory Pattern Blood Pressure 146/82 H 146/82 H Blood Pressure [Left Arm] Blood Pressure Mean 118 118 Blood Pressure Mean [Left Arm] Blood Pressure Position Blood Pressure Position [Left Arm] Pulse Oximetry 95 Oxygen Delivery Method Oxygen Flow Rate Sepsis Recent Fever Within 48 Hours Sepsis New/Unexplained Change in Mental Status Sepsis Action Taken by Nursing 03/31/24 01:11 03/31/24 01:15 03/31/24 01:15 Temperature 39.8 C H Temperature Source Oral Pulse Rate 111 H Pulse Rate [Apical] Pulse Rate from SpO2 Sensor 111 H Pulse Rhythm Pulse Rhythm [Apical] Pulse Strength Pulse Strength [Apical] Respiratory Rate 33 H Respiratory Effort / Characteristics Respiratory Depth Respiratory Pattern Blood Pressure 160/87 H Blood Pressure [Left Arm] Blood Pressure Mean 108 Blood Pressure Mean [Left Arm] Blood Pressure Position Blood Pressure Position [Left Arm] Pulse Oximetry 95 Oxygen Delivery Method Oxygen Flow Rate Sepsis Recent Fever Within 48 Hours Sepsis New/Unexplained Change in Mental Status Sepsis Action Taken by Nursing 03/31/24 01:21 03/31/24 01:27 03/31/24 01:30 Temperature Temperature Source Pulse Rate 110 H 111 H Pulse Rate [Apical] Pulse Rate from SpO2 Sensor 110 H 111 H Pulse Rhythm Pulse Rhythm [Apical] Pulse Strength Pulse Strength [Apical] Respiratory Rate 32 H 33 H Respiratory Effort / Characteristics Respiratory Depth Respiratory Pattern Blood Pressure 157/74 H Blood Pressure [Left Arm] Blood Pressure Mean 99 Blood Pressure Mean [Left Arm] Blood Pressure Position Blood Pressure Position [Left Arm] Pulse Oximetry 95 95 Oxygen Delivery Method Oxygen Flow Rate Sepsis Recent Fever Within 48 Hours Sepsis New/Unexplained Change in Mental Status Sepsis Action Taken by Nursing 03/31/24 01:30 03/31/24 01:51 03/31/24 02:04 Temperature Temperature Source Pulse Rate 99 H Pulse Rate [Apical] Pulse Rate from SpO2 Sensor Pulse Rhythm Pulse Rhythm [Apical] Pulse Strength Pulse Strength [Apical] Respiratory Rate 23 Respiratory Effort / Characteristics Respiratory Depth Respiratory Pattern Blood Pressure 157/74 H 126/59 L Blood Pressure [Left Arm] Blood Pressure Mean 99 74 Blood Pressure Mean [Left Arm] Blood Pressure Position Blood Pressure Position [Left Arm] Pulse Oximetry 95 Oxygen Delivery Method Nasal Cannula Oxygen Flow Rate 3 Sepsis Recent Fever Within 48 Hours Sepsis New/Unexplained Change in Mental Status Sepsis Action Taken by Nursing 03/31/24 02:15 03/31/24 02:15 03/31/24 02:15 Temperature Temperature Source Pulse Rate Pulse Rate [Apical] Pulse Rate from SpO2 Sensor Pulse Rhythm Pulse Rhythm [Apical] Pulse Strength Pulse Strength [Apical] Respiratory Rate Respiratory Effort / Characteristics Respiratory Depth Respiratory Pattern Blood Pressure 125/61 125/61 Blood Pressure [Left Arm] Blood Pressure Mean 73 73 Blood Pressure Mean [Left Arm] Blood Pressure Position Blood Pressure Position [Left Arm] Pulse Oximetry Oxygen Delivery Method Nasal Cannula Oxygen Flow Rate Sepsis Recent Fever Within 48 Hours Sepsis New/Unexplained Change in Mental Status Sepsis Action Taken by Nursing 03/31/24 02:36 03/31/24 02:39 03/31/24 02:45 Temperature Temperature Source Pulse Rate 102 H 101 H Pulse Rate [Apical] Pulse Rate from SpO2 Sensor 102 H 101 H Pulse Rhythm Pulse Rhythm [Apical] Pulse Strength Pulse Strength [Apical] Respiratory Rate 21 22 Respiratory Effort / Characteristics Respiratory Depth Respiratory Pattern Blood Pressure 118/55 L Blood Pressure [Left Arm] Blood Pressure Mean 81 Blood Pressure Mean [Left Arm] Blood Pressure Position Blood Pressure Position [Left Arm] Pulse Oximetry 94 95 Oxygen Delivery Method Oxygen Flow Rate Sepsis Recent Fever Within 48 Hours Sepsis New/Unexplained Change in Mental Status Sepsis Action Taken by Nursing 03/31/24 02:51 03/31/24 02:58 03/31/24 03:00 Temperature 38.7 C H 38.7 C H Temperature Source Oral Oral Pulse Rate 97 H Pulse Rate [Apical] 97 H Pulse Rate from SpO2 Sensor 98 H Pulse Rhythm Pulse Rhythm [Apical] Regular Pulse Strength Pulse Strength [Apical] Normal Respiratory Rate 15 18 Respiratory Effort / Characteristics Non-Labored Respiratory Depth Normal Respiratory Pattern Regular Blood Pressure Blood Pressure [Left Arm] 118/55 L Blood Pressure Mean Blood Pressure Mean [Left Arm] 76 Blood Pressure Position Blood Pressure Position [Left Arm] Lying Pulse Oximetry 94 96 Oxygen Delivery Method Nasal Cannula Oxygen Flow Rate 3 Sepsis Recent Fever Within 48 Hours Sepsis New/Unexplained Change in Mental Status Sepsis Action Taken by Nursing 03/31/24 03:00 Temperature Temperature Source Pulse Rate 97 H Pulse Rate [Apical] Pulse Rate from SpO2 Sensor 97 H Pulse Rhythm Pulse Rhythm [Apical] Pulse Strength Pulse Strength [Apical] Respiratory Rate 22 Respiratory Effort / Characteristics Respiratory Depth Respiratory Pattern Blood Pressure Blood Pressure [Left Arm] Blood Pressure Mean Blood Pressure Mean [Left Arm] Blood Pressure Position Blood Pressure Position [Left Arm] Pulse Oximetry 96 Oxygen Delivery Method Oxygen Flow Rate Sepsis Recent Fever Within 48 Hours Sepsis New/Unexplained Change in Mental Status Sepsis Action Taken by Nursing Laboratory Data 03/31/24 00:36 03/31/24 00:36 Lab Results 03/31/24 03/31/24 03/31/24 Range/Units 00:05 00:36 00:39 WBC 7.76 (4.8-10.8) K/ul RBC 4.69 (4.20-5.40) M/uL Hgb 14.7 (12.0-16.0) g/dl Hct 42.6 (37.0-47.0) % MCV 90.8 (80.0-100.0) fL MCH 31.3 (25.0-34.0) pg MCHC 34.5 (32.0-36.0) g/dL RDW Std Deviation 49.1 H (36.4-46.3) fL RDW Coeff of Meg 14.8 H (11.5-14.5) % Plt Count 37 L (130-400) K/uL Immature Gran % (Auto) 0.4 % Neut % (Auto) 89.9 % Lymph % (Auto) 4.5 % [place] % (Auto) 4.4 % Eos % (Auto) 0.5 % Baso % (Auto) 0.3 % Neut # (Auto) 6.98 H (1.40-6.50) K/uL Lymph # (Auto) 0.35 L (1.20-3.40) K/uL [place] # (Auto) 0.34 (0.11-0.59) K/uL Eos # (Auto) 0.04 (0.00-0.50) K/uL Baso # (Auto) 0.02 (0.00-0.20) K/uL Immature Gran # (Auto) 0.03 (0.01-0.20) K/uL Platelet Estimate Decreased L (Normal) RBC Morphology Unremarkable PT 18.0 H (9.0-12.0) Seconds INR 1.7 H (0.9-1.1) VBG pH 7.45 H (7.36-7.41) VBG pCO2 36 L (38-50) mmHg VBG pO2 44 mmHg VBG HCO3 25 mmol/L VBG O2 Saturation 78.4 % VBG Base Excess 1.3 mEq/L Sodium 137 (136-145) mmol/L Potassium 3.4 L (3.5-5.1) mmol/L Chloride 104 (98-107) mmol/L Carbon Dioxide 24 (21-32) mmol/L Anion Gap 9 (3-11) BUN 14 (6-23) mg/dl Creatinine 0.52 L (0.6-1.2) mg/dl Est Cr Clr Drug Dosing Not Reportable eGFR 103.69 BUN/Creatinine Ratio 26.9 H (10-20) Glucose 207 H (70-99(Fasting)) mg/dl Lactate 2.7 H* (0.4-2.0) mmol/L Calcium 8.5 L (8.6-10.3) mg/dl Magnesium 1.6 L (1.7-2.4) mg/dl Total Bilirubin 2.1 H (0.2-1.0) mg/dl Direct Bilirubin 0.6 H (0-0.2) mg/dl AST 47 H (13-39) U/L ALT 33 (7-52) U/L Alkaline Phosphatase 114 H (34-104) U/L Troponin I High Sens 18.3 H (0-14) pg/ml Total Protein 7.5 (6.0-8.3) gm/dl Albumin 3.5 (3.4-5.0) gm/dl Procalcitonin 1.00 H (0-0.5) ng/ml Adenovirus (PCR) Not Detected (NotDetected) B. pertussis DNA (PCR) Not Detected (NotDetected) B.parapertussis DNA PCR Not Detected (NotDetected) C. pneumoniae DNA (PCR) Not Detected (NotDetected) Coronavirus OC43 (PCR) Not Detected (NotDetected) Coronavirus HKU1 (PCR) Not Detected (NotDetected) Coronavirus 229E (PCR) Not Detected (NotDetected) SARS-CoV-2 (PCR) Not Detected (NotDetected) Coronavirus NL63 (PCR) Not Detected (NotDetected) Human Metapneumovir PCR Not Detected (NotDetected) Influenza Type A (PCR) Not Detected (NotDetected) Influenza Type B (PCR) Not Detected (NotDetected) M. pneumoniae (PCR) Not Detected (NotDetected) Parainfluenza 1 (PCR) Not Detected (NotDetected) Parainfluenza 2 (PCR) Not Detected (NotDetected) Parainfluenza 3 (PCR) Not Detected (NotDetected) Parainfluenza 4 (PCR) Not Detected (NotDetected) RSV (PCR) Not Detected (NotDetected) Entero/Rhino (PCR) Not Detected (NotDetected) 03/31/24 Range/Units 02:54 WBC (4.8-10.8) K/ul RBC (4.20-5.40) M/uL Hgb (12.0-16.0) g/dl Hct (37.0-47.0) % MCV (80.0-100.0) fL MCH (25.0-34.0) pg MCHC (32.0-36.0) g/dL RDW Std Deviation (36.4-46.3) fL RDW Coeff of Meg (11.5-14.5) % Plt Count (130-400) K/uL Immature Gran % (Auto) % Neut % (Auto) % Lymph % (Auto) % [place] % (Auto) % Eos % (Auto) % Baso % (Auto) % Neut # (Auto) (1.40-6.50) K/uL Lymph # (Auto) (1.20-3.40) K/uL [place] # (Auto) (0.11-0.59) K/uL Eos # (Auto) (0.00-0.50) K/uL Baso # (Auto) (0.00-0.20) K/uL Immature Gran # (Auto) (0.01-0.20) K/uL Platelet Estimate (Normal) RBC Morphology PT (9.0-12.0) Seconds INR (0.9-1.1) VBG pH (7.36-7.41) VBG pCO2 (38-50) mmHg VBG pO2 mmHg VBG HCO3 mmol/L VBG O2 Saturation % VBG Base Excess mEq/L Sodium (136-145) mmol/L Potassium (3.5-5.1) mmol/L Chloride (98-107) mmol/L Carbon Dioxide (21-32) mmol/L Anion Gap (3-11) BUN (6-23) mg/dl Creatinine (0.6-1.2) mg/dl Est Cr Clr Drug Dosing eGFR BUN/Creatinine Ratio (10-20) Glucose (70-99(Fasting)) mg/dl Lactate 1.7 (0.4-2.0) mmol/L Calcium (8.6-10.3) mg/dl Magnesium (1.7-2.4) mg/dl Total Bilirubin (0.2-1.0) mg/dl Direct Bilirubin (0-0.2) mg/dl AST (13-39) U/L ALT (7-52) U/L Alkaline Phosphatase (34-104) U/L Troponin I High Sens (0-14) pg/ml Total Protein (6.0-8.3) gm/dl Albumin (3.4-5.0) gm/dl Procalcitonin (0-0.5) ng/ml Adenovirus (PCR) (NotDetected) B. pertussis DNA (PCR) (NotDetected) B.parapertussis DNA PCR (NotDetected) C. pneumoniae DNA (PCR) (NotDetected) Coronavirus OC43 (PCR) (NotDetected) Coronavirus HKU1 (PCR) (NotDetected) Coronavirus 229E (PCR) (NotDetected) SARS-CoV-2 (PCR) (NotDetected) Coronavirus NL63 (PCR) (NotDetected) Human Metapneumovir PCR (NotDetected) Influenza Type A (PCR) (NotDetected) Influenza Type B (PCR) (NotDetected) M. pneumoniae (PCR) (NotDetected) Parainfluenza 1 (PCR) (NotDetected) Parainfluenza 2 (PCR) (NotDetected) Parainfluenza 3 (PCR) (NotDetected) Parainfluenza 4 (PCR) (NotDetected) RSV (PCR) (NotDetected) Entero/Rhino (PCR) (NotDetected) Administered Medications Discontinued Medications Acetaminophen (Acetaminophen 325 Mg Tab) 650 mg PO NOW STA Stop: 03/31/24 00:14 Last Admin: 03/31/24 00:35 Dose: 650 mg Documented By: SANDY Sodium Chloride (Nss) 1,000 mls @ 999 mls/hr IV .Q1H1M ONE Stop: 03/31/24 01:55 Last Infusion: 03/31/24 03:02 Dose: Infused Documented By: Admin: 03/31/24 01:07 Dose: 999 mls/hr Documented By: SANDY Ioversol (Optiray 320 125ml) 125 ml IV ONCE ONE Stop: 03/31/24 01:42 Last Admin: 03/31/24 01:42 Dose: 118 ml Documented By: NIKOLAS Imaging Data Radiologist's Impression: Chest X-Ray 03/30/24 23:52 EXAM: XR chest 1V portable CLINICAL HISTORY: SEPSIS BEST IMAGES POSSIBLE [facility] TECHNIQUE: CR chest, frontal projection. COMPARISON: 07/26/2023 CR FINDINGS: No gross air-space opacities. Left mid-zonal linear opacities (likely atelectatic bands). Accentutaed lung markings at bilateral lower zones. Limited evaltauion of the cardiac shadow given an AP projection (yet unchanged). Clear both costophrenic angles. No obvious acute osseous abnormality. IMPRESSION: 1. No gross air-space opacities. 2. Left mid-zonal linear opacities (likely atelectatic bands), unchanged. 3. Accentutaed lung markings at bilateral lower zones (non-specific), could be due to low lung volumes or congestive changes (slightly more prominent than the previous study especially at the right side). Electronically signed by Zay Lamb 03-31-2024 01:26 AM Abdomen/Pelvis CT 03/30/24 23:59 EXAM: CT abd pelvis IV con only CLINICAL HISTORY: 118 ml optiray 320, upper abd pain, nausea, fever TECHNIQUE: Contiguous axial images were obtained from the level of the diaphragm to the pubic symphysis with intravenous contrast. Coronal and sagittal reconstructions were likewise performed and indicated to increase the sensitivity for detecting clinically relevant pathology. If IV contrast material had not been administered, the likelihood of detecting abnormalities relevant to the patient's condition would have been substantially decreased. CT scan was performed according to ALARA (as low as reasonable achievable). COMPARISON: 07/26/2023 12:38:52 CONTINUITY COORDINATOR FINDINGS: Mild right sided pleural effusion with passive subsegmental collapse of right lower lobe is seen. The liver appears smaller in size and shows mild heterogeneous parenchyma with mild irregular contour. The spleen appears grossly enlarged in size measuring about 23 cm Multiple dilated venous channel/collaterals are noted at gastroesophageal junction, perigastric space, at the splenic hilum Mild mesenteric fat stranding is noted involving right paracolic region. There is no intra or extrahepatic biliary ductal dilatation. Hepatic vasculature is patent. The gallbladder is present. The pancreas, and adrenal glands are unremarkable. The kidneys are normal in size and attenuation. There is no hydronephrosis or perinephric fat stranding. No renal calculi or renal masses are identified. The ureters are normal in caliber and no ureteral calculi are seen. The bladder is normal in contour. Pelvic viscera are unremarkable. No focal or diffuse bowel wall thickening or evidence of bowel obstruction is identified. Abdominal and pelvic vasculature is patent. No adenopathy seen. Mild ascites seen. No aggressive appearing osseous lesions are identified. IMPRESSION: Mild right sided pleural effusion with passive subsegmental collapse of right lower lobe is seen.-reduced. The liver appears smaller in size and shows mild heterogeneous parenchyma with mild irregular contour.- possibility of chronic liver parenchymal disease - cirrhotic pattern-stable. Mild ascites seen. Gross splenomegaly.-stable. Multiple dilated venous channel/collaterals are noted at gastroesophageal junction, perigastric space, at the splenic hilum- changes of portal hypertension.-stable. Mild mesenteric fat stranding is noted involving right paracolic region. -reduced Electronically signed by Naeem John 03-31-2024 02:06 AM Chest CTA 03/31/24 01:29 EXAM: CT angio chest PE protocol CLINICAL HISTORY: 118 ml optiray 320, upper abd pain, nausea, fever, eval for pe TECHNIQUE: Contiguous axial images were obtained from the neck base through the upper abdomen following intravenous administration of iodinated contrast material. Angiographic images were processed, 3D MIP images were acquired for interpretation. If IV contrast material had not been administered, the likelihood of detecting abnormalities relevant to the patient's condition would have been substantially decreased. Coronal and sagittal 3-D MIPs were likewise performed and indicated to increase the sensitivity of detectin diffuse clinically relevant pathology. CT scan was performed according to ALARA (as low as reasonable achievable). COMPARISON: 08/05/2023 08:28:20 CONTINUITY COORDINATOR FINDINGS: Mild cardiomegaly. Adequate contrast bolus without evidence of pulmonary embolism. Mild right sided pleural effusion with passive subsegmental collapse of both lower lobes. Few linear atelectatic bands are noted involving left upper lobe, lingula and left lower lobe. The central airways are patent. The lungs are clear. No pleural effusion. The aorta, and pulmonary arteries are of normal size and configuration. There are no appreciable coronary artery and aortic atherosclerotic calcifications. No pericardial effusion is identified. The thyroid is unremarkable. No mediastinal, hilar, or axillary lymphadenopathy is noted. No suspicious lytic or sclerotic osseous lesions are identified. IMPRESSION: Mild cardiomegaly.-stable. Mild right sided pleural effusion with passive subsegmental collapse of both lower lobes.-stable. Few linear atelectatic bands are noted involving left upper lobe, lingula and left lower lobe. -stable. No evidence of pulmonary embolism. Electronically signed by Naeem John 03-31-2024 03:13 AM Discharge Plan Visit Data Chief Complaint: Illness Stated Complaint: fever, chills, weekness ED Provider: Vj Raza Discharge Problem: Fever Forms Stand Alone Forms: [facility] [employer] [facility] Prescriptions Prescriptions: No Action warfarin 5 mg tablet See Rx Instructions PO QPM Qty: 140 1RF Rx Instructions: 7.5mg daily per [facility] orally daily in the evening; dapagliflozin propanediol [Farxiga] 10 mg tablet 10 mg PO DAILY ondansetron 4 mg tablet,disintegrating 4 mg PO TID PRN (Reason: n/v) Qty: 20 0RF spironolactone 1 tab PO DAILY Rx Instructions: unknown dose per son Referrals Referrals: Lucila Dudley DO [Primary Care Provider] -
[2024-03-31] MEDS: ACETAMINOPHEN 325 MG TAB PO STA (00:35)
[2024-03-31 00:54] LABS: Base Excess VBG 1.3 mEq/L; HCO3 VBG 25 mmol/L; Oxygen Saturation VBG 78.4 %; PCO2 VBG 36 mmHg (38-50); PO2 VBG 44 mmHg; pH VBG 7.45 (7.36-7.41)
[2024-03-31] MEDS: SODIUM CHLORIDE 0.9% 1,000 ML IV ONE (01:07)
[2024-03-31 01:16] LABS: Alanine Aminotransferase 33 U/L (7-52); Albumin Level 3.5 gm/dl (3.4-5.0); Alkaline Phosphatase 114 U/L (34-104); Anion Gap 9 (3-11); Aspartate Aminotransferase 47 U/L (13-39); BUN Creatinine Ratio 26.9 (10-20); Bilirubin Direct 0.6 mg/dl (0-0.2); Bilirubin,Total 2.1 mg/dl (0.2-1.0); Blood Urea Nitrogen 14 mg/dl (6-23); Calcium 8.5 mg/dl (8.6-10.3); Carbon Dioxide 24 mmol/L (21-32); Chloride 104 mmol/L (98-107); Glucose 207 mg/dl (70-99(Fasting)); Magnesium 1.6 mg/dl (1.7-2.4); Potassium 3.4 mmol/L (3.5-5.1); Sodium 137 mmol/L (136-145); Total Protein 7.5 gm/dl (6.0-8.3)
[2024-03-31 01:22] LABS: Troponin I High Sensitivity 18.3 pg/ml (0-14)
[2024-03-31 01:23] LABS: INR 1.7 (0.9-1.1)
[2024-03-31 01:26] LABS: Adenovirus PCR Not Detected (NotDetected); Bordetella parapertussis PCR Not Detected (NotDetected); Bordetella pertussis PCR Not Detected (NotDetected); Chlamydia pneumoniae PCR Not Detected (NotDetected); Coronavirus 229E PCR Not Detected (NotDetected); Coronavirus CoV-2 (COVID19)PCR Not Detected (NotDetected); Coronavirus HKU1 PCR Not Detected (NotDetected); Coronavirus NL63 PCR Not Detected (NotDetected); Coronavirus OC43PCR Not Detected (NotDetected); Human Metapneumovirus PCR Not Detected (NotDetected); Influenza A PCR Not Detected (NotDetected); Influenza B PCR Not Detected (NotDetected); Mycoplasma pneumoniae PCR Not Detected (NotDetected); Parainfluenza Virus 1 PCR Not Detected (NotDetected); Parainfluenza Virus 2 PCR Not Detected (NotDetected); Parainfluenza Virus 3 PCR Not Detected (NotDetected); Parainfluenza Virus 4 PCR Not Detected (NotDetected); Respiratory Syncytial VirusPCR Not Detected (NotDetected); Rhinovirus/Enterovirus PCR Not Detected (NotDetected)
[2024-03-31 01:27] LABS: Basophils # (auto) 0.02 K/uL (0.00-0.20); Basophils % (auto) 0.3 %; Eosinophils # (auto) 0.04 K/uL (0.00-0.50); Eosinophils % (auto) 0.5 %; Hematocrit (blood only) 42.6 % (37.0-47.0); Hemoglobin 14.7 g/dl (12.0-16.0); Immature Granulocytes # (auto) 0.03 K/uL (0.01-0.20); Immature Granulocytes % (auto) 0.4 %; Lymphocytes # (auto) 0.35 K/uL (1.20-3.40); Lymphocytes % (auto) 4.5 %; Mean Corpuscular Hemoglobin 31.3 pg (25.0-34.0); Mean Corpuscular Hgb Conc 34.5 g/dL (32.0-36.0); Mean Corpuscular Volume 90.8 fL (80.0-100.0); Monocytes # (auto) 0.34 K/uL (0.11-0.59); Monocytes % (auto) 4.4 %; Neutrophils # (auto) 6.98 K/uL (1.40-6.50); Neutrophils % (auto) 89.9 %; Platelet Count 37 K/uL (130-400); Platelet Estimate Decreased (Normal); RBC Morphology Unremarkable; RDW Coefficient of Variation 14.8 % (11.5-14.5); RDW Standard Deviation 49.1 fL (36.4-46.3); Red Blood Count 4.69 M/uL (4.20-5.40); White Blood Count 7.76 K/ul (4.8-10.8)
--- NOTE | 2024-03-31 01:27 | XRay Report ---
EXAM: XR chest 1V portable CLINICAL HISTORY: SEPSIS BEST IMAGES POSSIBLE [facility] TECHNIQUE: CR chest, frontal projection. COMPARISON: 07/26/2023 CR FINDINGS: No gross air-space opacities. Left mid-zonal linear opacities (likely atelectatic bands). Accentutaed lung markings at bilateral lower zones. Limited evaltauion of the cardiac shadow given an AP projection (yet unchanged). Clear both costophrenic angles. No obvious acute osseous abnormality. IMPRESSION: 1. No gross air-space opacities. 2. Left mid-zonal linear opacities (likely atelectatic bands), unchanged. 3. Accentutaed lung markings at bilateral lower zones (non-specific), could be due to low lung volumes or congestive changes (slightly more prominent than the previous study especially at the right side). Electronically signed by Zay Lamb 03-31-2024 01:26 AM
[2024-03-31] MEDS: OPTIRAY 320 125ml IV ONE (01:42)
--- NOTE | 2024-03-31 03:07 | CT Scan Report ---
EXAM: CT abd pelvis IV con only CLINICAL HISTORY: 118 ml optiray 320, upper abd pain, nausea, fever TECHNIQUE: Contiguous axial images were obtained from the level of the diaphragm to the pubic symphysis with intravenous contrast. Coronal and sagittal reconstructions were likewise performed and indicated to increase the sensitivity for detecting clinically relevant pathology. If IV contrast material had not been administered, the likelihood of detecting abnormalities relevant to the patient's condition would have been substantially decreased. CT scan was performed according to ALARA (as low as reasonable achievable). COMPARISON: 07/26/2023 12:38:52 WILD LIFE PHOTOGRAPHER FINDINGS: Mild right sided pleural effusion with passive subsegmental collapse of right lower lobe is seen. The liver appears smaller in size and shows mild heterogeneous parenchyma with mild irregular contour. The spleen appears grossly enlarged in size measuring about 23 cm Multiple dilated venous channel/collaterals are noted at gastroesophageal junction, perigastric space, at the splenic hilum Mild mesenteric fat stranding is noted involving right paracolic region. There is no intra or extrahepatic biliary ductal dilatation. Hepatic vasculature is patent. The gallbladder is present. The pancreas, and adrenal glands are unremarkable. The kidneys are normal in size and attenuation. There is no hydronephrosis or perinephric fat stranding. No renal calculi or renal masses are identified. The ureters are normal in caliber and no ureteral calculi are seen. The bladder is normal in contour. Pelvic viscera are unremarkable. No focal or diffuse bowel wall thickening or evidence of bowel obstruction is identified. Abdominal and pelvic vasculature is patent. No adenopathy seen. Mild ascites seen. No aggressive appearing osseous lesions are identified. IMPRESSION: Mild right sided pleural effusion with passive subsegmental collapse of right lower lobe is seen.-reduced. The liver appears smaller in size and shows mild heterogeneous parenchyma with mild irregular contour.- possibility of chronic liver parenchymal disease - cirrhotic pattern-stable. Mild ascites seen. Gross splenomegaly.-stable. Multiple dilated venous channel/collaterals are noted at gastroesophageal junction, perigastric space, at the splenic hilum- changes of portal hypertension.-stable. Mild mesenteric fat stranding is noted involving right paracolic region. -reduced Electronically signed by Naeem John 03-31-2024 02:06 AM
--- NOTE | 2024-03-31 03:14 | CT Scan Report ---
EXAM: CT angio chest PE protocol CLINICAL HISTORY: 118 ml optiray 320, upper abd pain, nausea, fever, eval for pe TECHNIQUE: Contiguous axial images were obtained from the neck base through the upper abdomen following intravenous administration of iodinated contrast material. Angiographic images were processed, 3D MIP images were acquired for interpretation. If IV contrast material had not been administered, the likelihood of detecting abnormalities relevant to the patient's condition would have been substantially decreased. Coronal and sagittal 3-D MIPs were likewise performed and indicated to increase the sensitivity of detectin diffuse clinically relevant pathology. CT scan was performed according to ALARA (as low as reasonable achievable). COMPARISON: 08/05/2023 08:28:20 CARBONIZER FINDINGS: Mild cardiomegaly. Adequate contrast bolus without evidence of pulmonary embolism. Mild right sided pleural effusion with passive subsegmental collapse of both lower lobes. Few linear atelectatic bands are noted involving left upper lobe, lingula and left lower lobe. The central airways are patent. The lungs are clear. No pleural effusion. The aorta, and pulmonary arteries are of normal size and configuration. There are no appreciable coronary artery and aortic atherosclerotic calcifications. No pericardial effusion is identified. The thyroid is unremarkable. No mediastinal, hilar, or axillary lymphadenopathy is noted. No suspicious lytic or sclerotic osseous lesions are identified. IMPRESSION: Mild cardiomegaly.-stable. Mild right sided pleural effusion with passive subsegmental collapse of both lower lobes.-stable. Few linear atelectatic bands are noted involving left upper lobe, lingula and left lower lobe. -stable. No evidence of pulmonary embolism. Electronically signed by Naeem John 03-31-2024 03:13 AM
[2024-03-31] MEDS: cefTRIAXone SODIUM 2,000 MG/50 ML BAG IV STA (04:39)
[2024-03-31] MEDS: MAGNESIUM SULFATE / D5W 1 GM/100 ML BAG IV STA (04:39)
[2024-03-31] MEDS: DOXYCYCLINE HYCLATE 100 MG in DEXTROSE 5% MINI-B 100 ML IV STA (04:40)
[2024-03-31] MEDS: POTASSIUM CHLORIDE PWD 20 MEQ PACK PO STA (04:40)
--- NOTE | 2024-03-31 05:48 | History & Physical Report ---
Date of Service March 31, 2024 Assessment & Plan (1) Fever: (2) Lump of right breast: (3) Portal vein thrombosis: (4) Current use of long term acute care registered nurse anticoagulation: (5) Thrombocytopenia: (6) Cirrhosis of liver: (7) T2DM (type 2 diabetes mellitus): (8) Cellulitis: Plan 63 yo female PMHx cirrhosis 2/2 Hep C, esophageal varices, portal vein thrombosis on warfarin, T2DM, venous insufficiency, HLD, known breast mass not further evaluated admitted for fever x1 day. #Fever suspect 2/2 LLE cellulitis cannot exclude malignant source in setting of uncharacterized suspicious breast mass procal elevated anaplasma/Babesia screen negative RVP negative BCx drawn - follow will treat empirically with cefepime/daptomycin consider wound culture of LLE ulcer Tylenol for fever is having some joint pain, given one time dose of oxycodone follow daily cbc and chemistries #Portal Vein Thrombosis On alf warfarin therapy - continue INR goal 2-3 #T2DM home meds held BSG ACHS ISS #Cirrhosis CT does not demonstrate significant ascites continue spironolactone FENGI: T2DM diet Code status: full DVT prophylaxis: on warfarin Isolation: none Disposition: med tele History of Present Illness Primary Care Provider: Lucila Dudley, DO 63 yo female PMHx cirrhosis 2/2 Hep C, esophageal varices, portal vein thrombosis on warfarin, T2DM, venous insufficiency, HLD, known breast mass not further evaluated admitted for fever x1 day. Had measured fever at home of 104F. She endorses being in her usual state of health until yesterday when she started having rigors and could not get warm. She has not been sick lately and denies known sick contacts. Denies recent travel or known tick bites. Endorses some joint pain, denies SOB, CP, abdominal pain, N/V/D. ED Course: CTAP and CTA PE largely unremarkable besides cirrhotic liver and splenomegaly CBC without leukocytosis, thrombocytopenia present near baseline CMP with hypokalemia, hypomagnesemia, mild transaminitis elevated procal tickborne panel sent, RVP negative Febrile on admission, tachycardic received Tylenol, ceftriaxone, doxycycline 1 g mag, 20mEq K, 1L NSS Allergies Allergy/AdvReac Type Severity Reaction Status Date / Time menthol Allergy Severe Anaphylaxis Verified 07/01/23 14:36 mint Allergy Severe Anaphylaxis Verified 07/01/23 14:36 Home Medications Medication Instructions Recorded Confirmed Type dapagliflozin propanediol 10 mg 10 mg PO DAILY 07/26/23 03/30/24 History tablet (Farxiga) ondansetron 4 mg disintegrating 4 mg PO TID PRN n/v #20 tabs 07/29/23 03/31/24 Rx tablet warfarin 5 mg tablet See Rx Instructions PO QPM #140 02/24/24 03/30/24 Rx tabs spironolactone 1 tab PO DAILY 03/31/24 03/31/24 History Past Med/Surg History Problem List (Updated 03/31/24 @ 06:02 by Emeterio Kebede DO) Cellulitis T2DM (type 2 diabetes mellitus) Fever (Acute) Lump of right breast Portal vein thrombosis (dx in 2020) currently on warfarin. Abnormal CT of the abdomen Pleural effusion, right Pneumonia (Acute) Diarrhea Vertigo Helicobacter pylori gastritis Bacteremia due to group B Streptococcus Acute pancreatitis (Acute) Morbid obesity with BMI of 40.0-44.9, adult Left leg pain (Acute) Cellulitis of left lower extremity without foot (Acute) Encounter for pre-operative examination Current use of long term acute care registered nurse anticoagulation (Chronic) Abnormal LFTs (Acute) UTI (urinary tract infection) (Acute) Rash (Acute) Thrombocytopenia (Acute) Fever (Acute) Disseminated Lyme disease DVT prophylaxis Hip pain Hyponatremia Erythema migrans (Lyme disease) Lyme disease Back pain (Acute) Ascites no longer gets para's , on diurectics Cirrhosis of liver (Acute) Diabetes (Acute) NIDDM Medical History (Updated 03/31/24 @ 06:02 by Emeterio Kebede DO) Hx of sepsis Hx of small bowel obstruction Hx of Lyme disease treated, no current issues Hx of hepatitis C dx in [place] in 2019 during a vacation - [facility] patient did have treatment in the past unsure if it was October 2020 or October 2021. Edema bilateral legs, rare Hypothyroidism hx of taking levothyroxine in November 2021 -- no longer takes. Venous stasis dermatitis of both lower extremities Surgical History History of abdominal paracentesis H/O umbilical hernia repair (~01/2020) [place] Family History Mother Gastric cancer Father Stroke Social History Smoking Status: Never smoker Second Hand Exposure: No; Do You Dip or Chew Tobacco: No; Hx Alcohol Use: No Hx Substance Use: No Preferred Language: Mauritian Communication Ability: Effective Communication Ability Comment: floor mechanic Communication Tools: IPad Chiropractic Practice Manager Required: Yes Beliefs That Will Affect Care: None marital status: Single marital status details: from ; he lives in [facility]; he has HepC Current Living Situation: Family Current Living Situation Comment: lives with son in an apartment current occupational status: retired How many Children do You have: 2 other: In [place] and [place] 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; 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[facility] 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 L leg warm compared to R, +swelling, denies pain to palpation, ulcer present on medial aspect of L calle Neuro: alert, oriented, no focal neurologic deficit appreciated Results & Data Results & Data Vital Signs (Past 12 Hours) Vital Signs Temp Pulse Pulse Resp BP BP Pulse Ox 03/31/24 04:58 97 H 18 108/64 95 03/31/24 04:10 100 H 03/31/24 03:00 97 H 22 96 03/31/24 03:00 38.7 C H 03/31/24 02:58 38.7 C H 97 H 18 118/55 L 96 03/31/24 02:51 97 H 15 94 03/31/24 02:45 118/55 L 03/31/24 02:39 101 H 22 95 03/31/24 02:36 102 H 21 94 03/31/24 02:15 125/61 03/31/24 02:15 125/61 03/31/24 02:15 03/31/24 02:04 126/59 L 03/31/24 01:51 99 H 23 95 03/31/24 01:30 157/74 H 03/31/24 01:30 157/74 H 03/31/24 01:27 111 H 33 H 95 03/31/24 01:21 110 H 32 H 95 03/31/24 01:15 111 H 33 H 95 03/31/24 01:15 160/87 H 03/31/24 01:11 39.8 C H 03/31/24 01:00 113 H 32 H 95 03/31/24 01:00 146/82 H 03/31/24 01:00 146/82 H 03/31/24 00:51 112 H 30 H 96 03/31/24 00:44 167/78 H 03/31/24 00:42 104 H 23 167/78 H 97 03/31/24 00:21 101 H 18 149/89 H 88 L 03/31/24 00:18 105 H 03/31/24 00:15 03/31/24 00:07 92 03/30/24 23:52 03/30/24 23:43 39.3 C H 101 H 18 150/77 H 91 O2 Del Method O2 Flow Rate 03/31/24 04:58 Nasal Cannula 3 03/31/24 04:10 03/31/24 03:00 03/31/24 03:00 03/31/24 02:58 Nasal Cannula 3 03/31/24 02:51 03/31/24 02:45 03/31/24 02:39 03/31/24 02:36 03/31/24 02:15 03/31/24 02:15 03/31/24 02:15 Nasal Cannula 03/31/24 02:04 03/31/24 01:51 Nasal Cannula 3 03/31/24 01:30 03/31/24 01:30 03/31/24 01:27 03/31/24 01:21 03/31/24 01:15 03/31/24 01:15 03/31/24 01:11 03/31/24 01:00 03/31/24 01:00 03/31/24 01:00 03/31/24 00:51 03/31/24 00:44 03/31/24 00:42 Nasal Cannula 03/31/24 00:21 Room Air 03/31/24 00:18 03/31/24 00:15 Nasal Cannula 03/31/24 00:07 Nasal Cannula 3 03/30/24 23:52 Nasal Cannula 03/30/24 23:43 Room Air Code Status & VTE Plan VTE Prophylaxis Plan VTE Prophylaxis will be ordered: Yes Supervising Physician Co-Signing Physician Notes Patient seen and examined, chart reviewed, case discussed with Dr. Kebede and I agree with the assessment and plan as above. In brief, patient is a 63yo female with cirrhosis, DM presenting with fever of 104, rigors, body pain. No report of cough/SOB/abdominal pain/nausea/vomiting or diarrhea. Patient is interviewed with assistance of Mauritian floor mechanic On exam she is ill in appearance, NAD Skin - cellulitis of LE R > L with small ulcerative changes on RLE medial ankle, no purulence HEENT - MMM, Neck supple Heart- +S1/S2, regular, no m/r/g Lungs - CTA Abd - soft, NT/NT Ext - no edema Labs and images reviewed Assessment/Plan Patient with sepsis present on admission with fever, rigors, elevated heart rate. Blood pressure is stable. Procal is elevated at 1. Viral panel has been negative thus far Sources to consider - skin/soft tissue with cellulitis and ulcerative lesion, breast mass, patient also with prior history of GBS bacteremia with similar presentation -Admit to [facility] -Empiric Cefepime and Daptomycin -Follow cultures -Cautious use of fluids given cirrhosis - will hold spironolactone - BP is stable -Remainder as above Resident Activity Tracking Resident Involvement: Resident Care Provided Care Provided: Adult Hospital Medicine
[2024-03-31] MEDS: oxyCODONE HCL IR 5 MG TAB (IMMEDIATE RELEASE) PO STA (05:57)
[2024-03-31] MEDS ORDERED: ONDANSETRON INJ 2 MG/ML 2 ML VIAL IV PRN (06:02)
[2024-03-31] MEDS ORDERED: CARBOHYDRATES FOR HYPOGLYCEMIA PO PRN (06:02)
[2024-03-31] MEDS ORDERED: POLYETHYLENE (MIRALAX) 17 GM PACK PO PRN (06:02)
[2024-03-31] MEDS ORDERED: DEXTROSE 50% 50 ML SYRINGE IV PRN (06:02)
[2024-03-31] MEDS ORDERED: GLUCOSE 40% GEL 15 GM TUBE PO PRN (06:02)
[2024-03-31] MEDS ORDERED: GLUCOSE 10 TAB/TUBE PO PRN (06:02)
[2024-03-31] MEDS ORDERED: GLUCAGON FOR INJ 1 MG VIAL SQ PRN (06:02)
[2024-03-31] MEDS: CEFEPIME 2000MG 2,000 MG/20 ML SYR IV SCH (07:16)
[2024-03-31] MEDS: DAPTOmycin 350 MG in SYRINGE 0 ML IV SCH (07:52)
[2024-03-31] MEDS: SPIRONOLACTONE 100 MG TAB PO SCH (10:02)
[2024-03-31] MEDS: INSULIN ASPART PER UNIT CHARGE SC SCH (10:02)
[2024-03-31 10:58] LABS: Appearance Urine Clear (Clear); Bacteria Urine Automated None Seen (None Seen); Bilirubin Urine 1+ (Negative); Blood Urine Negative (Negative); Cast Urine Automated 0-2 /lpf (0-2); Color Urine Dark Yellow; Glucose Urine UA 3+ (Negative); Ketones Urine 1+ (Negative); Leukocyte Esterase Urine Negative (Negative); Nitrite Urine Negative (Negative); Protein Urine 1+ (Negative); Specific Gravity Urine > 1.045 (1.000-1.030); Urobilinogen Urine Negative (Negative); pH Urine 5.5 (4.5-7.5)
[2024-03-31 11:28] LABS: A calco-baum cmplx NotReported Not Detected (NotDetected); Bact fragilis Not Reported Not Detected (NotDetected); Blood Culture Id Panel See PCR Comment (NotDetected); C auris Not Reported Not Detected (NotDetected); Calbicans Not Reported Not Detected (NotDetected); Candida glabrata Not Reported Not Detected (NotDetected); Candida krusei Not Reported Not Detected (NotDetected); Cneoformans/gatti Not Reported Not Detected (NotDetected); Cparapsilosis Not Reported Not Detected (NotDetected); E cloacae compx Not Reported Not Detected (NotDetected); Efaecalis Not Reported Not Detected (NotDetected); Efaecium Not Reported Not Detected (NotDetected); Enterobacterales Not Reported Not Detected (NotDetected); Escherichia coli Not Reported Not Detected (NotDetected); H influenzae Not Reported Not Detected (NotDetected); K aerogenes Not Reported Not Detected (NotDetected); Koxytoca Not Reported Not Detected (NotDetected); Kpneumoniae grp Not Reported Not Detected (NotDetected); Lmonocyt Not Reported Not Detected (NotDetected); N meningitidis Not Reported Not Detected (NotDetected); P aeruginosa Not Reported Not Detected (NotDetected); Proteus spp Not Reported Not Detected (NotDetected); Salmonella spp Not Reported Not Detected (NotDetected); Staph lugdunensis Not Reported Not Detected (NotDetected); Staph spp. Not Reported Not Detected (NotDetected); Staphaureus Not Reported Not Detected (NotDetected); Staphepi Not Reported Not Detected (NotDetected); Stenmaltophilia Not Reported Not Detected (NotDetected); Strep agal(GrpB) Not Reported DETECTED (NotDetected); Strep pneum Not Reported Not Detected (NotDetected); Strep pyog (GrpA) Not Reported Not Detected (NotDetected); Strep spp Not Reported DETECTED (NotDetected)
[2024-03-31 11:38] LABS: Streptococcus agalactiae(GrpB) DETECTED (NotDetected); Streptococcus spp DETECTED (NotDetected)
--- NOTE | 2024-03-31 14:05 | Billing Data ---
Date of Service March 31, 2024 Coding Level of Care Code 92652 INT INP/OBS CARE
--- NOTE | 2024-03-31 14:29 | Hospitalist Progress Note ---
Date of Service March 31, 2024 Assessment & Plan (1) Bacteremia due to group B Streptococcus: (2) Cellulitis of left lower extremity without foot: (3) Cirrhosis of liver: (4) Lump of right breast: (5) Portal vein thrombosis: (6) T2DM (type 2 diabetes mellitus): (7) Diabetes: Plan 63 yo female PMHx cirrhosis 2/2 Hep C, esophageal varices, portal vein thrombosis on warfarin, T2DM, venous insufficiency, HLD, known breast mass not further evaluated admitted for fever x1 day. # Sepsis (present on admission) caused by strep agalactiae bacteremia related to SSTI of left ankle No evidence of septic ankle arthritis or abscess based on exam - cellulitis present only medial side mostly proximal to joint, no joint erythema/warmth/tenderness, has full ROM and can bear weight without pain -leukopenia improved and fever improved -narrow antibiotics to ceftriaxone 2g q24h. PCN G is the alternative -she denies having any foreign body other than dental implants. she does have cirrhosis -typically 14 days IV antibiotics, some are candidate for early transition to oral -consult infectious disease for advice on duration #Portal Vein Thrombosis On intermediate manager warfarin therapy - continue INR goal 2-3, subtherapeutic at 1.7 today -continue usual dose 7.5 mg daily and monitor INR daily, may increase with antibiotics #T2DM home meds held BSG ACHS ISS #HCV Cirrhosis with portal hypertension, esophageal varices CT with small ascites, not enough to tap. No abdominal pain or tenderness, SBP unlikely Thrombocytopenia due to splenomegaly continue spironolactone -monitor CMP #Right breast lump - seen on chest CT 08/05/2023. Evaluated with diagnostic mammo and breast ultrasound 10/08/23. 1.7x1.0 irregular hypoechoic mass that was suspicious for malignancy and she was advised to get biopsy, which she declined to do. Not mentioned on admission chest CTA. Will discuss with her. Tickborne panel was sent by admitting team and pending. Lyme screen was negative. hypomagnesemia, hypokalemia replaced -monitor BMP - check in AM DVT ppx - warfarin Admission and Anticipated Discharge Date Admission Date: March 31, 2024 Subjective She is feeling better, though still fatigued, skin over L ankle still sore but pain improved a lot She says the small wound left ankle is because it was itching and she scratched it with the toenail of her other foot Rigors/chills resolved Nou cough, CP, dyspnea, abdominal pain, diarrhea, dysuria. Does have some nausea without emesis today Guyanese video fleet administrator used for interview Physical Exam 2 Physical Exam: PHYSICAL EXAMINATION Last 24h vital signs reviewed, see documentation in flowsheet General: comfortable appearing, no distress HEENT: Normocephalic, atraumatic, pupils round and equal, sclerae anicteric, no conjunctival injection, moist mucus membranes Lungs: Normal respiratory effort. Clear to auscultation bilaterally. No RRW Heart: Regular rate and rhythm, systolic 'flow' murmur, hyperdynamic. No JVD Abdomen: Soft, nontender, nondistended. Bowel sounds present. Extremities: Warm, dry, well-perfused. 2+ lower extremity edema. Left ankle with small superficial wound apx 3-4 mm, surrounding this is area of erythema and warmth, no drainage, no ankle joint swelling and ROM was not painful Neuro: Alert and oriented x 4, face symmetric, moves 4 extremities well Psych: Normal affect and behavior Results & Data Results & Data Vital Signs (Past 12 Hours) Vital Signs Temp Pulse Pulse Resp BP BP Pulse Ox 03/31/24 11:22 98.9 F 91 H 18 140/78 92 03/31/24 11:12 03/31/24 10:32 86 17 130/69 93 03/31/24 07:19 89 03/31/24 07:14 98.7 F 88 17 133/89 96 03/31/24 06:50 03/31/24 06:48 91 H 17 118/59 L 94 03/31/24 04:58 97 H 18 108/64 95 03/31/24 04:10 100 H 03/31/24 03:00 97 H 22 96 03/31/24 03:00 101.7 F H 03/31/24 02:58 101.7 F H 97 H 18 118/55 L 96 03/31/24 02:51 97 H 15 94 03/31/24 02:45 118/55 L 03/31/24 02:39 101 H 22 95 03/31/24 02:36 102 H 21 94 03/31/24 02:15 125/61 03/31/24 02:15 125/61 03/31/24 02:15 Pulse Ox O2 Del Method O2 Del Method O2 Flow Rate O2 Flow Rate 03/31/24 11:22 Nasal Cannula 2 03/31/24 11:12 Nasal Cannula 2 03/31/24 10:32 Nasal Cannula 2 03/31/24 07:19 03/31/24 07:14 Nasal Cannula 2 03/31/24 06:50 94 Nasal Cannula 2 03/31/24 06:48 Nasal Cannula 2 03/31/24 04:58 Nasal Cannula 3 03/31/24 04:10 03/31/24 03:00 03/31/24 03:00 03/31/24 02:58 Nasal Cannula 3 03/31/24 02:51 03/31/24 02:45 03/31/24 02:39 03/31/24 02:36 03/31/24 02:15 03/31/24 02:15 03/31/24 02:15 Nasal Cannula Laboratory Results 03/31/24 00:36 03/31/24 00:36 PG Care Time/CCT Total # of Minutes Spent Total Time Spent with Patient: Total time spent is greater than 50% in coordination of care (as documented) at patient's floor/unit and/or counseling patient: Coding Level of Care Code 59802 SUB INP/OBS CARE 3/50MIN Diagnoses Bacteremia due to group B Streptococcus R78.81; B95.1 Cellulitis of left lower extremity without foot L03.116 Cirrhosis of liver K74.60 Lump of right breast N63.10 Portal vein thrombosis I81 T2DM (type 2 diabetes mellitus) E11.9 Type 2 diabetes mellitus without complication, without long-term current use of insulin E11.9
[2024-03-31] MEDS: WARFARIN SOD 7.5 MG TAB PO SCH (16:47)
[2024-03-31] MEDS: ADVANCED PROBIOTIC 625 MG CAPSULE PO SCH (16:48)
[2024-04-01] MEDS: cefTRIAXone SODIUM 2,000 MG/50 ML BAG IV SCH (04:56)
--- NOTE | 2024-04-01 06:57 | Electrocardiogram Report ---
Test Reason : Blood Pressure : */* mmHG Vent. Rate : 109 BPM Atrial Rate : 109 BPM P-R Int : 182 ms QRS Dur : 72 ms QT Int : 330 ms P-R-T Axes : 36 18 13 degrees QTcB Int : 444 ms Sinus tachycardia Nonspecific T wave abnormality Abnormal ECG When compared with ECG of 26-Jul-2023 11:33, No significant change was found Confirmed by Joo Jara ([id number]) on 04/01/2024 6:57:08 AM Referred By: REFERRED SELF Confirmed By: Joo Jara
[2024-04-01 07:41] LABS: Albumin Globulin Ratio 0.8 (0.9-2); Albumin Level 2.9 gm/dl (3.4-5.0); BUN Creatinine Ratio 43.2 (10-20); Bilirubin,Total 1.9 mg/dl (0.2-1.0); Calcium 7.7 mg/dl (8.6-10.3); Creatinine Clr Calc Pharmacy 163.8 ml/min; Globulin 3.5 gm/dl (2.5-4.0); Potassium 3.5 mmol/L (3.5-5.1); Total Protein 6.4 gm/dl (6.0-8.3)
[2024-04-01 07:42] LABS: Mean Corpuscular Hemoglobin 31.1 pg (25.0-34.0); Mean Corpuscular Hgb Conc 34.2 g/dL (32.0-36.0); Mean Corpuscular Volume 90.9 fL (80.0-100.0); Platelet Count 34 K/uL (130-400); RDW Coefficient of Variation 15.3 % (11.5-14.5); RDW Standard Deviation 50.7 fL (36.4-46.3); Red Blood Count 4.18 M/uL (4.20-5.40); White Blood Count 6.18 K/ul (4.8-10.8)
[2024-04-01 08:11] LABS: INR 2.4 (0.9-1.1); Prothrombin Time 24.5 Seconds (9.0-12.0)
[2024-04-01] MEDS: SPIRONOLACTONE 100 MG TAB PO SCH (08:39)
[2024-04-01 08:55] LABS: Estimated Average Glucose 186 mg/dl; Hemoglobin A1C 8.1 % (4.5-5.6)
--- NOTE | 2024-04-01 10:16 | Infectious Disease Consult ---
Date of Consultation April 01, 2024 Assessment & Plan (1) Cellulitis: (2) Fever: (3) Bacteremia due to group B Streptococcus: Plan This is a 63-year-old Monegasque speaking female, with past medical history of portal vein thrombosis, on Coumadin, cirrhosis, hepatitis C, venous insuffi ciency who presents to the ED with joint aches, fever, and rigors. Fevers at home with Tmax of 104. She reports left lower extremity "irritation". She endorsed pruritus for which she has itched her left calf and foot with her right foot and subsequently developed an open wound. She then developed increasing erythema, swelling and pain at the site. She denies any wound drainage, cough, chest pain, vision changes, change in bowel or urinary habits, headaches. History obtained with the help of Monegasque radiology specialist with assistance of telepresenter. . In the ED, temperature 39.3, BP 150/77, heart rate 101, O2 sats 91% on room air, RR 18. Labs: WBC 7.7, platelets 37, H/H14.7/42.6, BUN 14, creatinine 0.52. Respiratory viral panel negative. Chest x-ray with no gross airspace opacities. CTAP shows mild right-sided pleural effusion with passive subsegmental collapse of right lower lobe. Liver with findings consistent with stable cirrhosis.. Mildly dilated venous/collaterals noted at the GE junction, perigastric space with changes of portal hypertension and splenomegaly. CTA lung w/ no evidence of PE. Blood cultures growing streptococcus agalactiae. She received a dose of ceftriaxone and doxycycline in the ED infectious disease consulted for Streptococcus bacteremia On my initial evaluation, she reports feeling tired but improved since admission. She has not had fevers since yesterday (03/31), denies rigors today. She is currently on 2 L nasal cannula. Complains of left lower leg pain. She denies any prosthetics/hardware. Microbiology: Blood culture 03/31: Streptococcus agalactiae ( GBS) ) in 4/ bottles Antibiotics: Ceftriaxone 03/30ongoing Cefepime 03/31 Daptomycin 03/31 Doxy cyclin 03/30 #Strep agalactiae ( GNS) bacteremia #LLE cellulitis and wound # Acute hypoxic respiratory failure # Cirrhosis # Hep C, sp txt per report # Thrombocytopenia Discussion: Group B bacteremia likely from left lower extremity cellulitis. She reports pruritus which led to excessive scratching of her left lower extremity. Subsequently developed a wound. Area is red, warm and tender. Would fabian the area to evaluate for progression/resolution. Recommendations. Continue Ceftriaxone 2 g IV daily Check TTE to evaluate for valve vegatations in setting of GBS bacteremia Repeat Blood culture to evaluate for clearance Fabian area: If progression of erythema, pain, or swelling, then Check LLE CT scan for deeper space infection Anticipate 14 d of therapy, can be deescalated to PO abx if clinically improving, no persistent bacteremia and No TTE c/f endocarditis DW hospitalist. Thank you for this consult. ID will continue to follow. Jong Chavez MD, MPH Infectious Disease [facility] Call [phone] with questions Consultation Information Consultation was provided via telemedicine using two-way real-time interactive telecommunication between the patient and the telemedicine provider. For the duration of the visit, the provider was performing the assessment from a different facility than the patient. This includesuse of bluetooth stethoscope forauscultationperformed by the telepresenter that the telemedicine provider can hear if described in the physical exam. Geographic Information Scientist contact information: Please call [facility] Center [phone]. (Phone Number For Physician Use Only) After establishing a telemedicine visit, patient was: Patient was verified with two unique identifiers Time Spent with Patient: Initial => 75 min History of Present Illness Reason for Consultation: Bacteremia, cellulitis Requesting Physician: Kenya Dyer MD Attending Physician: Kenya Dyer MD History of Present Illness This is a 63-year-old Monegasque speaking female, with past medical history of portal vein thrombosis, on Coumadin, cirrhosis, hepatitis C, venous insufficie ncy who presents to the ED with joint aches, fever, and rigors. Fevers at home with Tmax of 104. She reports left lower extremity "irritation". She endorsed pruritus for which she has itched her left calf and foot with her right foot and subsequently developed an open wound. She then developed increasing erythema, swelling and pain at the site. She denies any wound drainage, cough, chest joseline n, vision changes, change in bowel or urinary habits, headaches. History obtained with the help of Monegasque radiology specialist with assistance of telepresenter. . In the ED, temperature 39.3, BP 150/77, heart rate 101, O2 sats 91% on room air, RR 18. Labs: WBC 7.7, platelets 37, H/H14.7/42.6, BUN 14, creatinine 0.52. Respiratory viral panel negative. Chest x-ray with no gross airspace opacities. CTAP shows mild right-sided pleural effusion with passive subsegmental collapse of right lower lobe. Liver with findings consistent with stable cirrhosis.. Mildly dilated venous/collaterals noted at the GE junction, perigastric space with changes of portal hypertension and splenomegaly. CTA lung w/ no evidence of PE. Blood cultures growing streptococcus agalactiae. She received a dose of ceftriaxone and doxycycline in the ED infectious disease consulted for Streptococcus bacteremia On my initial evaluation, she reports feeling tired but improved since admission. She has not had fevers since yesterday (03/31), denies rigors today. She is currently on 2 L nasal cannula. Complains of left lower leg pain. She denies any prosthetics/hardware. Allergies Allergy/AdvReac Type Severity Reaction Status Date / Time menthol Allergy Severe Anaphylaxis Verified 07/01/23 14:36 mint Allergy Severe Anaphylaxis Verified 07/01/23 14:36 Home Medications Medication Instructions Recorded Confirmed Type dapagliflozin propanediol 10 mg 10 mg PO DAILY 07/26/23 03/30/24 History tablet (Farxiga) ondansetron 4 mg disintegrating 4 mg PO TID PRN n/v #20 tabs 07/29/23 03/31/24 Rx tablet warfarin 5 mg tablet See Rx Instructions PO QPM #140 02/24/24 03/30/24 Rx tabs spironolactone 1 tab PO DAILY 03/31/24 03/31/24 History Patient History Medical History (Updated 03/31/24 @ 06:02 by Emeterio Kebede DO) Hx of sepsis Hx of small bowel obstruction Hx of Lyme disease treated, no current issues Hx of hepatitis C dx in [place] in 2019 during a vacation - [facility] patient did have treatment in the past unsure if it was October 2020 or October 2021. Edema bilateral legs, rare Hypothyroidism hx of taking levothyroxine in November 2021 -- no longer takes. Venous stasis dermatitis of both lower extremities Surgical History History of abdominal paracentesis H/O umbilical hernia repair (~01/2020) [place] Family History Mother Gastric cancer Father Stroke Social History Smoking Status: Never smoker Second Hand Exposure: No; Do You Dip or Chew Tobacco: No; Hx Alcohol Use: No Hx Substance Use: No Preferred Language: Monegasque Communication Ability: Effective Communication Ability Comment: Limited understanding of Sinhala. 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 Pertinent positives as per HPI Physical Exam Physical Exam: Gen- NAD, fatigued appearing Neck- supple HEENT- ATNC, anicteric sclera Abd- soft, NT Lung- non labored breathing, On 2L NC Extremities- LLE venous stasis changes with, medial calf erythema, edema warmth , tenderness. No ankle tenderness on passive or active movement. Left medial lowe calf wound- some blood. Neuro- AAO times 3 Psych- cooperative Results & Data Vital Signs (Past 12 Hours) Vital Signs Temp Pulse Resp BP Pulse Ox O2 Del Method O2 Flow Rate 04/01/24 07:31 37.0 C 74 16 121/78 96 Nasal Cannula 2 03/31/24 22:43 Room Air Laboratory Results Laboratory Results - last 48 hr 03/31/24 03/31/24 03/31/24 00:05 00:36 00:39 WBC 7.76 RBC 4.69 Hgb 14.7 Hct 42.6 MCV 90.8 MCH 31.3 MCHC 34.5 RDW Std Deviation 49.1 H RDW Coeff of Meg 14.8 H Plt Count 37 L Immature Gran % (Auto) 0.4 Neut % (Auto) 89.9 Lymph % (Auto) 4.5 [place] % (Auto) 4.4 Eos % (Auto) 0.5 Baso % (Auto) 0.3 Neut # (Auto) 6.98 H Lymph # (Auto) 0.35 L [place] # (Auto) 0.34 Eos # (Auto) 0.04 Baso # (Auto) 0.02 Immature Gran # (Auto) 0.03 Platelet Estimate Decreased L RBC Morphology Unremarkable PT 18.0 H INR 1.7 H VBG pH 7.45 H VBG pCO2 36 L VBG pO2 44 VBG HCO3 25 VBG O2 Saturation 78.4 VBG Base Excess 1.3 Sodium 137 Potassium 3.4 L Chloride 104 Carbon Dioxide 24 Anion Gap 9 BUN 14 Creatinine 0.52 L Est Cr Clr Drug Dosing Not Reportable eGFR 103.69 BUN/Creatinine Ratio 26.9 H Glucose 207 H POC Glucose Estimat Average Glucose Hemoglobin A1c Lactate 2.7 H* Calcium 8.5 L Magnesium 1.6 L Total Bilirubin 2.1 H Direct Bilirubin 0.6 H AST 47 H ALT 33 Alkaline Phosphatase 114 H Troponin I High Sens 18.3 H Total Protein 7.5 Albumin 3.5 Globulin Albumin/Globulin Ratio Procalcitonin 1.00 H Urine Color Urine Appearance Urine pH Ur Specific [place] Urine Protein Urine Glucose (UA) Urine Ketones Urine Blood Urine Nitrite Urine Bilirubin Urine Urobilinogen Ur Leukocyte Esterase Urine WBC (Auto) Urine RBC (Auto) U Hyaline Cast (Auto) U Epithel Cells (Auto) Urine Bacteria (Auto) Adenovirus (PCR) Not Detected Anaplasma Smear Babesia Smear B. pertussis DNA (PCR) Not Detected B.parapertussis DNA PCR Not Detected Lyme Disease Screen Negative C. pneumoniae DNA (PCR) Not Detected Coronavirus OC43 (PCR) Not Detected Coronavirus HKU1 (PCR) Not Detected Coronavirus 229E (PCR) Not Detected SARS-CoV-2 (PCR) Not Detected Coronavirus NL63 (PCR) Not Detected Human Metapneumovir PCR Not Detected Influenza Type A (PCR) Not Detected Influenza Type B (PCR) Not Detected M. pneumoniae (PCR) Not Detected Parainfluenza 1 (PCR) Not Detected Parainfluenza 2 (PCR) Not Detected Parainfluenza 3 (PCR) Not Detected Parainfluenza 4 (PCR) Not Detected RSV (PCR) Not Detected Entero/Rhino (PCR) Not Detected Streptococcus sp PCR DETECTED A Strep agalactiae (PCR) DETECTED A Bld Cult ID Panel PCR See PCR Comment 03/31/24 03/31/24 03/31/24 00:52 02:54 09:14 WBC RBC Hgb Hct MCV MCH MCHC RDW Std Deviation RDW Coeff of Meg Plt Count Immature Gran % (Auto) Neut % (Auto) Lymph % (Auto) [place] % (Auto) Eos % (Auto) Baso % (Auto) Neut # (Auto) Lymph # (Auto) [place] # (Auto) Eos # (Auto) Baso # (Auto) Immature Gran # (Auto) Platelet Estimate RBC Morphology PT INR VBG pH VBG pCO2 VBG pO2 VBG HCO3 VBG O2 Saturation VBG Base Excess Sodium Potassium Chloride Carbon Dioxide Anion Gap BUN Creatinine Est Cr Clr Drug Dosing eGFR BUN/Creatinine Ratio Glucose POC Glucose 202 H Estimat Average Glucose Hemoglobin A1c Lactate 1.7 Calcium Magnesium Total Bilirubin Direct Bilirubin AST ALT Alkaline Phosphatase Troponin I High Sens Total Protein Albumin Globulin Albumin/Globulin Ratio Procalcitonin Urine Color Urine Appearance Urine pH Ur Specific [place] Urine Protein Urine Glucose (UA) Urine Ketones Urine Blood Urine Nitrite Urine Bilirubin Urine Urobilinogen Ur Leukocyte Esterase Urine WBC (Auto) Urine RBC (Auto) U Hyaline Cast (Auto) U Epithel Cells (Auto) Urine Bacteria (Auto) Adenovirus (PCR) Anaplasma Smear See Comment Babesia Smear See Comment B. pertussis DNA (PCR) B.parapertussis DNA PCR Lyme Disease Screen C. pneumoniae DNA (PCR) Coronavirus OC43 (PCR) Coronavirus HKU1 (PCR) Coronavirus 229E (PCR) SARS-CoV-2 (PCR) Coronavirus NL63 (PCR) Human Metapneumovir PCR Influenza Type A (PCR) Influenza Type B (PCR) M. pneumoniae (PCR) Parainfluenza 1 (PCR) Parainfluenza 2 (PCR) Parainfluenza 3 (PCR) Parainfluenza 4 (PCR) RSV (PCR) Entero/Rhino (PCR) Streptococcus sp PCR Strep agalactiae (PCR) Bld Cult ID Panel PCR 03/31/24 03/31/24 03/31/24 10:27 12:53 16:07 WBC RBC Hgb Hct MCV MCH MCHC RDW Std Deviation RDW Coeff of Meg Plt Count Immature Gran % (Auto) Neut % (Auto) Lymph % (Auto) [place] % (Auto) Eos % (Auto) Baso % (Auto) Neut # (Auto) Lymph # (Auto) [place] # (Auto) Eos # (Auto) Baso # (Auto) Immature Gran # (Auto) Platelet Estimate RBC Morphology PT INR VBG pH VBG pCO2 VBG pO2 VBG HCO3 VBG O2 Saturation VBG Base Excess Sodium Potassium Chloride Carbon Dioxide Anion Gap BUN Creatinine Est Cr Clr Drug Dosing eGFR BUN/Creatinine Ratio Glucose POC Glucose 199 H 206 H Estimat Average Glucose Hemoglobin A1c Lactate Calcium Magnesium Total Bilirubin Direct Bilirubin AST ALT Alkaline Phosphatase Troponin I High Sens Total Protein Albumin Globulin Albumin/Globulin Ratio Procalcitonin Urine Color Dark Yellow Urine Appearance Clear Urine pH 5.5 Ur Specific [place] > 1.045 H Urine Protein 1+ H Urine Glucose (UA) 3+ H Urine Ketones 1+ H Urine Blood Negative Urine Nitrite Negative Urine Bilirubin 1+ H Urine Urobilinogen Negative Ur Leukocyte Esterase Negative Urine WBC (Auto) 6-10 H Urine RBC (Auto) 6-10 H U Hyaline Cast (Auto) 0-2 U Epithel Cells (Auto) 3-5 H Urine Bacteria (Auto) None Seen Adenovirus (PCR) Anaplasma Smear Babesia Smear B. pertussis DNA (PCR) B.parapertussis DNA PCR Lyme Disease Screen C. pneumoniae DNA (PCR) Coronavirus OC43 (PCR) Coronavirus HKU1 (PCR) Coronavirus 229E (PCR) SARS-CoV-2 (PCR) Coronavirus NL63 (PCR) Human Metapneumovir PCR Influenza Type A (PCR) Influenza Type B (PCR) M. pneumoniae (PCR) Parainfluenza 1 (PCR) Parainfluenza 2 (PCR) Parainfluenza 3 (PCR) Parainfluenza 4 (PCR) RSV (PCR) Entero/Rhino (PCR) Streptococcus sp PCR Strep agalactiae (PCR) Bld Cult ID Panel PCR 03/31/24 04/01/24 04/01/24 20:27 06:27 07:54 WBC 6.18 RBC 4.18 L Hgb 13.0 Hct 38.0 MCV 90.9 MCH 31.1 MCHC 34.2 RDW Std Deviation 50.7 H RDW Coeff of Meg 15.3 H Plt Count 34 L Immature Gran % (Auto) Neut % (Auto) Lymph % (Auto) [place] % (Auto) Eos % (Auto) Baso % (Auto) Neut # (Auto) Lymph # (Auto) [place] # (Auto) Eos # (Auto) Baso # (Auto) Immature Gran # (Auto) Platelet Estimate RBC Morphology PT 24.5 H INR 2.4 H VBG pH VBG pCO2 VBG pO2 VBG HCO3 VBG O2 Saturation VBG Base Excess Sodium 135 L Potassium 3.5 Chloride 104 Carbon Dioxide 25 Anion Gap 6 BUN 19 Creatinine 0.44 L Est Cr Clr Drug Dosing 163.8 eGFR 107.95 BUN/Creatinine Ratio 43.2 H Glucose 160 H POC Glucose 204 H 154 H Estimat Average Glucose 186 Hemoglobin A1c 8.1 H Lactate Calcium 7.7 L Magnesium Total Bilirubin 1.9 H Direct Bilirubin AST 37 ALT 27 Alkaline Phosphatase 80 Troponin I High Sens Total Protein 6.4 Albumin 2.9 L Globulin 3.5 Albumin/Globulin Ratio 0.8 L Procalcitonin Urine Color Urine Appearance Urine pH Ur Specific [place] Urine Protein Urine Glucose (UA) Urine Ketones Urine Blood Urine Nitrite Urine Bilirubin Urine Urobilinogen Ur Leukocyte Esterase Urine WBC (Auto) Urine RBC (Auto) U Hyaline Cast (Auto) U Epithel Cells (Auto) Urine Bacteria (Auto) Adenovirus (PCR) Anaplasma Smear Babesia Smear B. pertussis DNA (PCR) B.parapertussis DNA PCR Lyme Disease Screen C. pneumoniae DNA (PCR) Coronavirus OC43 (PCR) Coronavirus HKU1 (PCR) Coronavirus 229E (PCR) SARS-CoV-2 (PCR) Coronavirus NL63 (PCR) Human Metapneumovir PCR Influenza Type A (PCR) Influenza Type B (PCR) M. pneumoniae (PCR) Parainfluenza 1 (PCR) Parainfluenza 2 (PCR) Parainfluenza 3 (PCR) Parainfluenza 4 (PCR) RSV (PCR) Entero/Rhino (PCR) Streptococcus sp PCR Strep agalactiae (PCR) Bld Cult ID Panel PCR Diagnostic Findings Microbiology 03/31/24 00:20 Blood Anaerobic Blood Culture - Preliminary Gram positive cocci in chains 03/31/24 00:36 Blood Aerobic Blood Culture - Preliminary Gram positive cocci in chains 03/31/24 00:36 Blood Anaerobic Blood Culture - Preliminary Gram positive cocci in chains Chest X-Ray 03/30/24 23:52 EXAM: XR chest 1V portable CLINICAL HISTORY: SEPSIS BEST IMAGES POSSIBLE [facility] TECHNIQUE: CR chest, frontal projection. COMPARISON: 07/26/2023 CR FINDINGS: No gross air-space opacities. Left mid-zonal linear opacities (likely atelectatic bands). Accentutaed lung markings at bilateral lower zones. Limited evaltauion of the cardiac shadow given an AP projection (yet unchanged). Clear both costophrenic angles. No obvious acute osseous abnormality. IMPRESSION: 1. No gross air-space opacities. 2. Left mid-zonal linear opacities (likely atelectatic bands), unchanged. 3. Accentutaed lung markings at bilateral lower zones (non-specific), could be due to low lung volumes or congestive changes (slightly more prominent than the previous study especially at the right side). Electronically signed by Zay Lamb 03-31-2024 01:26 AM Abdomen/Pelvis CT 03/30/24 23:59 EXAM: CT abd pelvis IV con only CLINICAL HISTORY: 118 ml optiray 320, upper abd pain, nausea, fever TECHNIQUE: Contiguous axial images were obtained from the level of the diaphragm to the pubic symphysis with intravenous contrast. Coronal and sagittal reconstructions were likewise performed and indicated to increase the sensitivity for detecting clinically relevant pathology. If IV contrast material had not been administered, the likelihood of detecting abnormalities relevant to the patient's condition would have been substantially decreased. CT scan was performed according to ALARA (as low as reasonable achievable). COMPARISON: 07/26/2023 12:38:52 CLEANER TOUCH UP WORKER FINDINGS: Mild right sided pleural effusion with passive subsegmental collapse of right lower lobe is seen. The liver appears smaller in size and shows mild heterogeneous parenchyma with mild irregular contour. The spleen appears grossly enlarged in size measuring about 23 cm Multiple dilated venous channel/collaterals are noted at gastroesophageal junction, perigastric space, at the splenic hilum Mild mesenteric fat stranding is noted involving right paracolic region. There is no intra or extrahepatic biliary ductal dilatation. Hepatic vasculature is patent. The gallbladder is present. The pancreas, and adrenal glands are unremarkable. The kidneys are normal in size and attenuation. There is no hydronephrosis or perinephric fat stranding. No renal calculi or renal masses are identified. The ureters are normal in caliber and no ureteral calculi are seen. The bladder is normal in contour. Pelvic viscera are unremarkable. No focal or diffuse bowel wall thickening or evidence of bowel obstruction is identified. Abdominal and pelvic vasculature is patent. No adenopathy seen. Mild ascites seen. No aggressive appearing osseous lesions are identified. IMPRESSION: Mild right sided pleural effusion with passive subsegmental collapse of right lower lobe is seen.-reduced. The liver appears smaller in size and shows mild heterogeneous parenchyma with mild irregular contour.- possibility of chronic liver parenchymal disease - cirrhotic pattern-stable. Mild ascites seen. Gross splenomegaly.-stable. Multiple dilated venous channel/collaterals are noted at gastroesophageal junction, perigastric space, at the splenic hilum- changes of portal hypertension.-stable. Mild mesenteric fat stranding is noted involving right paracolic region. -reduced Electronically signed by Naeem John 03-31-2024 02:06 AM Chest CTA 03/31/24 01:29 EXAM: CT angio chest PE protocol CLINICAL HISTORY: 118 ml optiray 320, upper abd pain, nausea, fever, eval for pe TECHNIQUE: Contiguous axial images were obtained from the neck base through the upper abdomen following intravenous administration of iodinated contrast material. Angiographic images were processed, 3D MIP images were acquired for interpretation. If IV contrast material had not been administered, the likelihood of detecting abnormalities relevant to the patient's condition would have been substantially decreased. Coronal and sagittal 3-D MIPs were likewise performed and indicated to increase the sensitivity of detectin diffuse clinically relevant pathology. CT scan was performed according to ALARA (as low as reasonable achievable). COMPARISON: 08/05/2023 08:28:20 CLEANER TOUCH UP WORKER FINDINGS: Mild cardiomegaly. Adequate contrast bolus without evidence of pulmonary embolism. Mild right sided pleural effusion with passive subsegmental collapse of both lower lobes. Few linear atelectatic bands are noted involving left upper lobe, lingula and left lower lobe. The central airways are patent. The lungs are clear. No pleural effusion. The aorta, and pulmonary arteries are of normal size and configuration. There are no appreciable coronary artery and aortic atherosclerotic calcifications. No pericardial effusion is identified. The thyroid is unremarkable. No mediastinal, hilar, or axillary lymphadenopathy is noted. No suspicious lytic or sclerotic osseous lesions are identified. IMPRESSION: Mild cardiomegaly.-stable. Mild right sided pleural effusion with passive subsegmental collapse of both lower lobes.-stable. Few linear atelectatic bands are noted involving left upper lobe, lingula and left lower lobe. -stable. No evidence of pulmonary embolism. Electronically signed by Naeem John 03-31-2024 03:13 AM Medications Administered Home Medications Medication Instructions Recorded Confirmed Last Taken dapagliflozin propanediol 10 mg 10 mg PO DAILY 07/26/23 03/30/24 Unknown tablet (Farxiga) ondansetron 4 mg disintegrating 4 mg PO TID PRN n/v #20 tabs 07/29/23 03/31/24 Unknown tablet warfarin 5 mg tablet See Rx Instructions PO QPM #140 02/24/24 03/30/24 Unknown tabs spironolactone 1 tab PO DAILY 03/31/24 03/31/24 Unknown Active Medications Generic Name Dose Route Start Last Admin Trade Name Freq PRN Reason Stop Dose Admin Ceftriaxone Sodium 2,000 mg in 50 mls @ 100 mls/hr 04/01/24 05:00 04/01/24 05:39 Rocephin IV 04/15/24 04:59 Infused Q24H JOSE DAVID Infusion Insulin Aspart 0 units 03/31/24 07:30 04/01/24 08:40 Insulin Aspart Per Unit Charge SC 04/30/24 07:29 3 units ACHS JOSE DAVID Administration Lactobacillus Acidophilus 1,250 mg 03/31/24 14:15 04/01/24 08:39 Advanced Probiotic 625 Mg Capsule PO 04/30/24 14:14 1,250 mg DAILY JOSE DAVID Administration Spironolactone 100 mg 04/01/24 09:00 04/01/24 08:39 Spironolactone 100 Mg Tab PO 05/01/24 08:59 100 mg QAM JOSE DAVID Administration
--- NOTE | 2024-04-01 11:45 | XCELERA ---
[id number] \\[id number]
--- NOTE | 2024-04-01 14:42 | Hospitalist Progress Note ---
Date of Service April 01, 2024 Assessment & Plan (1) Bacteremia due to group B Streptococcus: (2) Cellulitis of left lower extremity without foot: (3) Cirrhosis of liver: (4) Lump of right breast: (5) Portal vein thrombosis: (6) T2DM (type 2 diabetes mellitus): (7) Diabetes: Plan 63 yo female PMHx cirrhosis 2/2 Hep C, esophageal varices, portal vein thrombosis on warfarin, T2DM, venous insufficiency, HLD, known breast mass not further evaluated admitted for fever x1 day. # Sepsis (present on admission) caused by strep agalactiae bacteremia related to SSTI of left ankle No evidence of septic ankle arthritis or abscess based on exam - cellulitis present only medial side mostly proximal to joint, no joint erythema/warmth/tenderness, has full ROM and can bear weight without pain -sepsis resolved but there is increased erythema of L distal leg. 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 No abdominal pain or tenderness, SBP unlikely Thrombocytopenia due to splenomegaly continue spironolactone -monitor CMP - bilirubin and AST/ALT improved today #Right breast lump - seen on chest CT 08/05/2023. Evaluated with diagnostic mammo and breast ultrasound 10/08/23. 1.7x1.0 irregular hypoechoic mass that was suspicious for malignancy and she was advised to get biopsy, which she declined to do. Not mentioned on admission chest CTA. Will discuss with her. Tickborne panel was sent by admitting team and pending. Lyme screen was negative. hypomagnesemia, hypokalemia replaced DVT ppx - warfarin Admission and Anticipated Discharge Date Admission Date: March 31, 2024 Subjective no rigors/chills, LLE erythema worse, skin remains painful feels tired Luxembourger video asphalt blender used for interview Physical Exam 2 Physical Exam: PHYSICAL EXAMINATION Last 24h vital signs reviewed, see documentation in flowsheet General: comfortable appearing, no distress HEENT: Normocephalic, atraumatic, pupils round and equal, sclerae anicteric, no conjunctival injection, moist mucus membranes Lungs: Normal respiratory effort. Heart: Deferred Abdomen: Soft, nondistended. Extremities: Warm, dry, well-perfused. 2+ lower extremity edema. Left ankle with small superficial wound apx 3-4 mm unchanged no drainage, surrounding this is area of dark erythema and warmth which has increased compared to yesterday, area over medial malleolus is more puffy question very small fluctuance this area, light pink erythema newly extends up the calf to just distal of the knee, erythema does not circumscribe the ankle joint Neuro: Alert and oriented x 4, face symmetric, moves 4 extremities well Psych: Normal affect and behavior Results & Data Results & Data Vital Signs (Past 12 Hours) Vital Signs Temp Pulse Resp BP Pulse Ox O2 Del Method O2 Flow Rate 04/01/24 07:45 Nasal Cannula 2 04/01/24 07:31 98.6 F 74 16 121/78 96 Nasal Cannula 2 Laboratory Results 04/01/24 06:27 04/01/24 06:27 Bilirubin improved to 1.9 and mild elevation of AST/ALT resolved PG Care Time/CCT Total # of Minutes Spent Total Time Spent with Patient: Total time spent is greater than 50% in coordination of care (as documented) at patient's floor/unit and/or counseling patient: Coding Level of Care Code 19098 SUB INP/OBS CARE 3/50MIN Diagnoses Bacteremia due to group B Streptococcus R78.81; B95.1 Cellulitis of left lower extremity without foot L03.116 Cirrhosis of liver K74.60 Lump of right breast N63.10 Portal vein thrombosis I81 T2DM (type 2 diabetes mellitus) E11.9 Type 2 diabetes mellitus without complication, without long-term current use of insulin E11.9
[2024-04-01] MEDS: OPTIRAY 320 100ml IV ONE (15:23)
[2024-04-01] MEDS: LANTUS PER UNIT CHARGE SQ SCH (15:45)
--- NOTE | 2024-04-01 15:56 | CT Scan Report ---
CT tib/fib LT w con HISTORY: 63 years-old Female SSTI L lower leg worsening, bacteremia acute pain with soft tissue swel ling of the left lower leg COMPARISON: None TECHNIQUE: Multiple axial CT images of the left tibia and fibula were obtained with IV contrast. A do se lowering technique was used consistent with the principals of ELAINE. FINDINGS: Small joint effusion of the knee. Moderate cutaneous thickening with subcutaneous edema mid to lower leg. No discrete fluid collection, foreign body or soft tissue mass. Probable peroneal tendinosis. No acute fracture, dislocation or osseous erosion. Osteoarthritis of the knee, foot and ankle. IMPRESSION: 1. No acute osseous abnormality. 2. Mild to moderate cutaneous thickening with subcutaneous edema. Differential considerations include cellulitis, venous stasis or lymphedema. 2. No discrete fluid collection. ACT 112: Negative or not required by law. The above report was generated using voice recognition software. It may contain grammatical, syntax o r spelling errors. Electronically signed by: Tom Houston M.D. 04/01/2024 3:54 PM
--- NOTE | 2024-04-01 16:00 | Cardiology Consultation ---
Date of Consultation April 01, 2024 Assessment & Plan (1) Bacteremia due to group B Streptococcus: (2) Cellulitis: (3) Current use of filler in anticoagulation: (4) Cirrhosis of liver: (5) Esophageal varices: (6) Thrombocytopenia: (7) Diabetes: Plan 63-year-old woman with no cardiac history presents with left leg cellulitis and group B strep bacteremia, echocardiogram shows equivocal lesion on the mitral valve which may be a vegetation. Certainly, transesophageal echocardiogram would be helpful to better evaluate her mitral valve abnormality. However, the risk of precipitating gastrointestinal bleeding during the procedure given thrombocytopenia, esophageal varices, and anticoagulation with warfarin (INR currently therapeutic) is almost certainly greater than the risk of increasing the duration of her antibiotics. Also, given the presence of potentially compromised immune status due to cirrhosis and diabetes, defer to infectious disease specialist but would consider longer course of antibiotics for this reason as well. Will check follow-up limited but targeted transthoracic echocardiogram tomorrow to see if the mitral anomaly could be better characterized. If image quality is adequate, may glean enough information to better guide therapy. If not, will need to make an empiric choice on duration of antibiotics without the benefit of transesophageal imaging (due to procedural risk). History of Present Illness Reason for Consultation: strep bacteremia, poss veg on MV, consider YOVANY Requesting Physician: Kenya Dyer MD Attending Physician: Kenya Dyer MD History of Present Illness 63-year-old woman with no cardiac history but medical history notable for cirrhosis secondary to hepatitis C, esophageal varices, portal vein thrombosis (on warfarin), and chronic venous insufficiency who was admitted 03/31/2024 with fever and found to have left leg cellulitis with group B strep bacteremia. Echocardiogram showed no valvular dysfunction but did show an equivocal structure on the mitral leaflet suspicious for vegetation (versus redundant chordae). Spoke with patient utilizing Google translate (Macedonian). She denies chest pain or dyspnea. Feels fatigued. No palpitations. Not on telemetry. Allergies Allergy/AdvReac Type Severity Reaction Status Date / Time menthol Allergy Severe Anaphylaxis Verified 07/01/23 14:36 mint Allergy Severe Anaphylaxis Verified 07/01/23 14:36 Home Medications Medication Instructions Recorded Confirmed Type dapagliflozin propanediol 10 mg 10 mg PO DAILY 07/26/23 03/30/24 History tablet (Farxiga) ondansetron 4 mg disintegrating 4 mg PO TID PRN n/v #20 tabs 07/29/23 03/31/24 Rx tablet warfarin 5 mg tablet See Rx Instructions PO QPM #140 02/24/24 03/30/24 Rx tabs spironolactone 1 tab PO DAILY 03/31/24 03/31/24 History Patient History Medical History (Updated 04/01/24 @ 16:10 by Philip Aparicio MD) Acute pancreatitis Lyme disease Hx of sepsis Hx of small bowel obstruction Hx of Lyme disease treated, no current issues Hx of hepatitis C dx in [place] in 2019 during a vacation - [facility] states patient did have treatment in the past unsure if it was October 2020 or October 2021. Edema bilateral legs, rare Hypothyroidism hx of taking levothyroxine in November 2021 -- no longer takes. Venous stasis dermatitis of both lower extremities Surgical History History of abdominal paracentesis H/O umbilical hernia repair (~01/2020) [place] Family History Mother Gastric cancer Father Stroke Social History Smoking Status: Never smoker Second Hand Exposure: No; Do You Dip or Chew Tobacco: No; Hx Alcohol Use: No Hx Substance Use: No Preferred Language: Macedonian Communication Ability: Effective Communication Ability Comment: Limited understanding of Kazakh. 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 Fever to 103.6 yesterday, afebrile today. Normotensive. Pulse 76 bpm and regular. Respirations 16 and unlabored. Skin: no ecchymoses or generalized lesions. No obvious stigmata of SBE. HEENT: unremarkable. Neck: JVP at the clavicle at 90 degrees, no carotid bruits. Lungs: clear. Cardiac: regular rhythm, normal S1-2, no murmur. Abdomen: benign. Extremities: Stasis changes both lower extremities with only trace pretibial edema, increased rubor/warmth left leg, ulceration left calle. Good capillary refill. Neurologic: normal affect and conversation, nonfocal. Results & Data Vital Signs (Past 12 Hours) Vital Signs Temp Pulse Resp BP Pulse Ox O2 Del Method O2 Flow Rate 04/01/24 14:32 98.6 F 76 16 124/76 96 Nasal Cannula 2 04/01/24 07:45 Nasal Cannula 2 04/01/24 07:31 98.6 F 74 16 121/78 96 Nasal Cannula 2 Laboratory Results Normal white count and hemoglobin, platelet count 34,000. INR 2.4. Sodium 135, otherwise normal electrolytes, BUN 19, creatinine 0.44. Hemoglobin A1c 8.1%. Procalcitonin 1.00. Blood cultures with strep agalactiae (group B) x 2. Diagnostic Findings ECG showed sinus tachycardia 109 bpm and nonspecific T wave flattening. Compared with 07/26/2023 study, no significant change. Echocardiogram showed EF 55 to 60% with normal wall motion, no significant valvular stenosis or regurgitation, small filamentous structure (8 mm x 1 mm) on the underside of the mitral valve which demonstrates independent oscillation during systole and may represent redundant chordae or vegetation. Chest/abdomen/pelvic CT showed mild right-sided pleural effusion with right lower lobe atelectasis, mild ascites, dilated venous channels/collaterals GE junction, evidence of portal hypertension. No evidence of pulmonary embolism. PG Care Time/CCT Total # of Minutes Spent Total Time Spent with Patient: Total time spent is greater than 50% in coordination of care (as documented) at patient's floor/unit and/or counseling patient: Coding Level of Care Code 63895 IN/OBS CONSULT LVL 3,45M Diagnoses Bacteremia due to group B Streptococcus R78.81; B95.1 Cellulitis L03.90 Current use of filler in anticoagulation Z79.01 Cirrhosis of liver K74.60 Esophageal varices I85.00 Thrombocytopenia D69.6 Type 2 diabetes mellitus without complication, without long-term current use of insulin E11.9
[2024-04-01] MEDS: ACETAMINOPHEN 325 MG TAB PO PRN (19:53)
[2024-04-02 08:24] LABS: Prothrombin Time 20.6 Seconds (9.0-12.0)
[2024-04-02 08:33] LABS: Albumin Globulin Ratio 0.8 (0.9-2); Albumin Level 2.7 gm/dl (3.4-5.0); BUN Creatinine Ratio 33.3 (10-20); Bilirubin,Total 1.3 mg/dl (0.2-1.0); Calcium 7.8 mg/dl (8.6-10.3); Creatinine Clr Calc Pharmacy 184.8 ml/min; Globulin 3.5 gm/dl (2.5-4.0); Potassium 3.5 mmol/L (3.5-5.1); Total Protein 6.2 gm/dl (6.0-8.3)
--- NOTE | 2024-04-02 15:40 | XCELERA ---
[id number]
--- NOTE | 2024-04-02 16:33 | Infectious Disease Progress Nt ---
Date of Service April 02, 2024 Assessment & Plan (1) Cellulitis: (2) Fever: (3) Bacteremia due to group B Streptococcus: Plan This is a 63-year-old Kazakh speaking female, with past medical history of portal vein thrombosis, on Coumadin, cirrhosis, hepatitis C, venous insuf ficiency who presents to the ED with joint aches, fever, and rigors. Fevers at home with Tmax of 104. She reports left lower extremity "irritation". She endorsed pruritus for which she has itched her left calf and foot with her right foot and subsequently developed an open wound. She then developed increasing erythema, swelling and pain at the site. She denies any wound drainage, cough, chest pain, vision changes, change in bowel or urinary habits, headaches. History obtained with the help of Kazakh civil design specialist with assistance of telepresenter. . In the ED, temperature 39.3, BP 150/77, heart rate 101, O2 sats 91% on room air, RR 18. Labs: WBC 7.7, platelets 37, H/H14.7/42.6, BUN 14, creatinine 0.52. Respiratory viral panel negative. Chest x-ray with no gross airspace opacities. CTAP shows mild right-sided pleural effusion with passive subsegmental collapse of right lower lobe. Liver with findings consistent with stable cirrhosis.. Mildly dilated venous/collaterals noted at the GE junction, perigastric space with changes of portal hypertension and splenomegaly. CTA lung w/ no evidence of PE. Blood cultures growing streptococcus agalactiae. She received a dose of ceftriaxone and doxycycline in the ED infectious disease consulted for Streptococcus bacteremia On my initial evaluation, she reports feeling tired but improved since admission. She has not had fevers since yesterday (03/31), denies rigors today. She is currently on 2 L nasal cannula. Complains of left lower leg pain. She denies any prosthetics/hardware. Microbiology: Blood culture 03/31: Streptococcus agalactiae ( GBS) ) in 4/4 bottles ( Amp and PCN S) Blood culture 04/01: NGTD Antibiotics: Ceftriaxone 03/30ongoing Cefepime 03/31 Daptomycin 03/31 Doxycycline 03/30 #Strep agalactiae ( GNS) bacteremia #LLE cellulitis and wound # Acute hypoxic respiratory failure # Cirrhosis # Hep C, sp txt per report # Thrombocytopenia Discussion: Group B bacteremia likely from left lower extremity cellulitis. She reports pruritus which led to excessive scratching of her left lower extremity. Subsequently developed a wound. Area is red, warm and tender on intial evaluation. 04/02 TTE obtained on 04/01 shows no gross vegetations. However there is a small filamentous structure on the underside of the anterior medial leaflet which could represent redundant chordae or vegetation. Radiology was consulted regarding YOVANY. They deferred as they felt the risk for YOVANY outweighed the benefits A repeat TTE done today shows that the prior small filamentous structure noted on mitral valve is not visualized and chordae suspected. No suspicion for endocarditis at this time. On 1L NC today. She is feeling better . Cellulitis improving . Recommendations. Continue Ceftriaxone 2 g IV daily. On discharge, can discharge on Amoxicillin 1 G PO q8hrs ( 04/01-04/14) follow up Blood culture to evaluate for clearance If progression of erythema, pain, or swelling, then Check LLE CT scan for deeper space infection Anticipate 14 d of therapy, can be deescalated to PO abx ( 04/01- if continues to clinically improve and no persistent bacteremia. ID will sign off. Please call with questions or if repeat BC positive. Jong Chavez MD, MPH Infectious Disease [facility] Call [phone] with questions Admission and Anticipated Discharge Date Admission Date: March 31, 2024 Subjective Subsequent visit was provided via telemedicine using two-way real-time interactive telecommunication between the patient and the telemedicine provider. For the duration of the visit, the provider was performing the assessment from a different facility than the patient. This includesuse of bluetooth stethoscope forauscultationperformed by the telepresenter that the telemedicine provider can hear if described in the physical exam. Computer Consultant contact information: Please call [facility] Call Center [phone]. (Phone Number For Physician Use Only) After establishing a telemedicine visit, patient was: Patient was verified with two unique identifiers Time Spent with Patient: Subsequent => 35 min Used oil distributor tender LLE cellulitis improving TTE reviewed She feels better overall o2 requirement down to 1L Physical Exam Physical Exam: Gen- NAD Neck- supple HEENT- ATNC, anicteric sclera Abd- soft, NT Lung- non labored breathing, On1L NC Extremities- LLE venous stasis changes with, less medial calf erythema, less edema less warmth , tenderness. No ankle tenderness on passive or active movement. Left medial lower calf wound-unchanged Neuro- AAO times 3 Psych- cooperative Results & Data Vital Signs (Past 12 Hours) Vital Signs Temp Pulse Resp BP BP Pulse Ox O2 Del Method 04/02/24 14:28 36.6 C 72 16 108/67 96 Nasal Cannula 04/02/24 07:55 Room Air 04/02/24 07: 36.6 C 71 16 111/65 96 Room Air 04/02/24 05:37 92 Room Air 04/02/24 05:35 94 Nasal Cannula O2 Flow Rate 04/02/24 14:28 1 04/02/24 07:55 04/02/24 07:25 04/02/24 05:37 04/02/24 05:35 1 Laboratory Results 04/01/24 15:48 Aerobic Blood Culture - Preliminary Blood No growth in Aerobic bottle after 24 hours. Anaerobic Blood Culture - Preliminary No growth in Anaerobic bottle after 24 hours. 04/01/24 15:46 Aerobic Blood Culture - Preliminary Blood No growth in Aerobic bottle after 24 hours. Anaerobic Blood Culture - Preliminary No growth in Anaerobic bottle after 24 hours. 03/31/24 00:20 Aerobic Blood Culture - Final Blood Strep agalactiae (group B) Anaerobic Blood Culture - Final Strep agalactiae (group B) 03/31/24 00:36 Aerobic Blood Culture - Final Blood Strep agalactiae (group B) Anaerobic Blood Culture - Final Strep agalactiae (group B) 04/02/24 04/02/24 04/02/24 16:29 11:46 07:48 PT INR Sodium Potassium Chloride Carbon Dioxide Anion Gap BUN Creatinine Est Cr Clr Drug Dosing eGFR BUN/Creatinine Ratio Glucose POC Glucose 131 H 196 H 144 H Calcium Total Bilirubin AST ALT Alkaline Phosphatase Total Protein Albumin Globulin Albumin/Globulin Ratio 04/02/24 04/01/24 04/01/24 07:30 20:52 16:55 PT 20.6 H INR 2.0 H Sodium 138 Potassium 3.5 Chloride 105 Carbon Dioxide 28 Anion Gap 5 BUN 13 Creatinine 0.39 L Est Cr Clr Drug Dosing 184.8 eGFR 111.13 BUN/Creatinine Ratio 33.3 H Glucose 153 H POC Glucose 166 H 169 H Calcium 7.8 L Total Bilirubin 1.3 H AST 32 ALT 25 Alkaline Phosphatase 75 Total Protein 6.2 Albumin 2.7 L Globulin 3.5 Albumin/Globulin Ratio 0.8 L Diagnostic Findings Microbiology 04/01/24 15:48 Blood Aerobic Blood Culture - Preliminary No growth in Aerobic bottle after 24 hours. 04/01/24 15:48 Blood Anaerobic Blood Culture - Preliminary No growth in Anaerobic bottle after 24 hours. 04/01/24 15:46 Blood Aerobic Blood Culture - Preliminary No growth in Aerobic bottle after 24 hours. 04/01/24 15:46 Blood Anaerobic Blood Culture - Preliminary No growth in Anaerobic bottle after 24 hours. 03/31/24 00:20 Blood Aerobic Blood Culture - Final Strep agalactiae (group B) 03/31/24 00:20 Blood Anaerobic Blood Culture - Final Strep agalactiae (group B) 03/31/24 00:36 Blood Aerobic Blood Culture - Final Strep agalactiae (group B) 03/31/24 00:36 Blood Anaerobic Blood Culture - Final Strep agalactiae (group B) Home Medications Medication Instructions Recorded Confirmed Last Taken dapagliflozin propanediol 10 mg 10 mg PO DAILY 07/26/23 03/30/24 Unknown tablet (Farxiga) ondansetron 4 mg disintegrating 4 mg PO TID PRN n/v #20 tabs 07/29/23 03/31/24 Unknown tablet warfarin 5 mg tablet See Rx Instructions PO QPM #140 02/24/24 03/30/24 Unknown tabs spironolactone 1 tab PO DAILY 03/31/24 03/31/24 Unknown Active Medications Generic Name Dose Route Start Last Admin Trade Name Freq PRN Reason Stop Dose Admin Acetaminophen 650 mg 03/31/24 06:02 04/01/24 19:53 Acetaminophen 325 Mg Tab PO 04/30/24 06:01 650 mg Q4H PRN Administration Pain or Fever Ceftriaxone Sodium 2,000 mg in 50 mls @ 100 mls/hr 04/01/24 05:00 04/02/24 06:09 Rocephin IV 04/15/24 04:59 Infused Q24H [facility] Infusion Insulin Aspart 0 units 03/31/24 07:30 04/02/24 12:33 Insulin Aspart Per Unit Charge SC 04/30/24 07:29 13 units ACHS JOSE DAVID Administration Insulin Glargine 18 units 04/01/24 14:45 04/02/24 09:12 Lantus Per Unit Charge SQ 05/01/24 14:44 18 units DAILY JOSE DAVID Administration Lactobacillus Acidophilus 1,250 mg 03/31/24 14:15 04/02/24 09:02 Advanced Probiotic 625 Mg Capsule PO 04/30/24 14:14 1,250 mg DAILY JOSE DAVID Administration Spironolactone 100 mg 04/01/24 09:00 04/02/24 09:02 Spironolactone 100 Mg Tab PO 05/01/24 08:59 100 mg QAM JOSE DAVID Administration Medications Administered Home Medications Medication Instructions Recorded Confirmed Last Taken dapagliflozin propanediol 10 mg 10 mg PO DAILY 07/26/23 03/30/24 Unknown tablet (Farxiga) ondansetron 4 mg disintegrating 4 mg PO TID PRN n/v #20 tabs 07/29/23 03/31/24 Unknown tablet warfarin 5 mg tablet See Rx Instructions PO QPM #140 02/24/24 03/30/24 Unknown tabs spironolactone 1 tab PO DAILY 03/31/24 03/31/24 Unknown Active Medications Generic Name Dose Route Start Last Admin Trade Name Freq PRN Reason Stop Dose Admin Acetaminophen 650 mg 03/31/24 06:02 04/01/24 19:53 Acetaminophen 325 Mg Tab PO 04/30/24 06:01 650 mg Q4H PRN Administration Pain or Fever Ceftriaxone Sodium 2,000 mg in 50 mls @ 100 mls/hr 04/01/24 05:00 04/02/24 06:09 Rocephin IV 04/15/24 04:59 Infused Q24H JOSE DAVID Infusion Insulin Aspart 0 units 03/31/24 07:30 04/02/24 12:33 Insulin Aspart Per Unit Charge SC 04/30/24 07:29 13 units ACHS JOSE DAVID Administration Insulin Glargine 18 units 04/01/24 14:45 04/02/24 09:12 Lantus Per Unit Charge SQ 05/01/24 14:44 18 units DAILY JOSE DAVID Administration Lactobacillus Acidophilus 1,250 mg 03/31/24 14:15 04/02/24 09:02 Advanced Probiotic 625 Mg Capsule PO 04/30/24 14:14 1,250 mg DAILY JOSE DAVID Administration Spironolactone 100 mg 04/01/24 09:00 04/02/24 09:02 Spironolactone 100 Mg Tab PO 05/01/24 08:59 100 mg QAM JOSE DAVID Administration
[2024-04-02] MEDS: WARFARIN SOD 3 MG TAB PO SCH (17:47)
--- NOTE | 2024-04-02 18:43 | Hospitalist Progress Note ---
Date of Service April 02, 2024 Assessment & Plan (1) Bacteremia due to group B Streptococcus: (2) Cellulitis of left lower extremity without foot: (3) Cirrhosis of liver: (4) Lump of right breast: (5) Portal vein thrombosis: (6) T2DM (type 2 diabetes mellitus): (7) Diabetes: Plan 63 yo female PMHx cirrhosis 2/2 Hep C, esophageal varices, portal vein thrombosis on warfarin, T2DM, venous insufficiency, HLD, known breast mass not further evaluated admitted for fever x1 day. # Sepsis (present on admission) caused by strep agalactiae bacteremia related to SSTI of left ankle No evidence of septic ankle arthritis or abscess based on exam - cellulitis present only medial side mostly proximal to joint, no joint erythema/warmth/tenderness, has full ROM and can bear weight without pain -sepsis resolved and left leg cellulitis now clearly improving. CT of left leg done 04/01 did not show any abscess or deep tissue infection -continue ceftriaxone, total 14 days of antibiotics - can transition to oral if repeat blood cultures remain negative -minimum 14 days antibiotics, can consider early transition to oral if bacteremia cleared quickly and no vegetation - initial TTE 03/31 - normal EF, 8x1 mm filament on anterior mitral leaflet - redundant chordae vs vegetation -consulted cardiology to consider YOVANY - YOVANY too high of a risk because of her esophageal varices coagulopathy thrombocytopenia - repeat TTE 04/02 the small filamentous structure was not visualized and there was a good view of the valve, therefore it was likely a chordae and no evidence of endocarditis #Portal 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 No abdominal pain or tenderness, SBP unlikely Thrombocytopenia due to splenomegaly continue spironolactone -monitor CMP - bilirubin and AST/ALT improved compared to admission #Right breast lump - seen on chest CT 08/05/2023. Evaluated with diagnostic mammo and breast ultrasound 10/08/23. 1.7x1.0 irregular hypoechoic mass that was suspicious for malignancy and she was advised to get biopsy, which she declined to do. Not mentioned on admission chest CTA. Will discuss with her. Tickborne panel was sent by admitting team and pending. Lyme screen was negative. 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 Heart: Deferred Abdomen: Soft, nondistended. Extremities: Warm, dry, well-perfused. 2+ lower extremity edema. left ankle erythema is darkening and less warm, no extension of pink area on the calf and infected has receded and faded a bit overall definitely improved Neuro: Alert and oriented x 4, face symmetric, moves 4 extremities well Psych: Normal affect and behavior Results & Data Results & Data Vital Signs (Past 12 Hours) Vital Signs Temp Pulse Resp BP BP Pulse Ox O2 Del Method 04/02/24 14:28 97.9 F 72 16 108/67 96 Nasal Cannula 04/02/24 07:55 Room Air 04/02/24 07:25 97.9 F 71 16 111/65 96 Room Air O2 Flow Rate 04/02/24 14:28 1 04/02/24 07:55 04/02/24 07:25 Laboratory Results 04/01/24 06:27 04/02/24 07:30 PG Care Time/CCT Total # of Minutes Spent Total Time Spent with Patient: Total time spent is greater than 50% in coordination of care (as documented) at patient's floor/unit and/or counseling patient: Coding Level of Care Code 20706 SUB INP/OBS CARE 2/35MIN Diagnoses Bacteremia due to group B Streptococcus R78.81; B95.1 Cellulitis of left lower extremity without foot L03.116 Cirrhosis of liver K74.60 Lump of right breast N63.10 Portal vein thrombosis I81 T2DM (type 2 diabetes mellitus) E11.9 Type 2 diabetes mellitus without complication, without long-term current use of insulin E11.9
[2024-04-03 07:59] LABS: INR 1.7 (0.9-1.1); Prothrombin Time 17.6 Seconds (9.0-12.0)
--- NOTE | 2024-04-03 14:13 | Hospitalist Progress Note ---
Date of Service April 03, 2024 Assessment & Plan (1) Bacteremia due to group B Streptococcus: (2) Cellulitis of left lower extremity without foot: (3) Cirrhosis of liver: (4) Lump of right breast: (5) Portal vein thrombosis: (6) T2DM (type 2 diabetes mellitus): (7) Diabetes: Plan 63 yo female PMHx cirrhosis 2/2 Hep C, esophageal varices, portal vein thrombosis on warfarin, T2DM, venous insufficiency, HLD, known breast mass not further evaluated admitted for fever x1 day. # Sepsis (present on admission) caused by strep agalactiae bacteremia related to SSTI of left ankle No evidence of septic ankle arthritis or abscess based on exam - cellulitis present only medial side mostly proximal to joint, no joint erythema/warmth/tenderness, has full ROM and can bear weight without pain -sepsis resolved and left leg cellulitis resolving. CT of left leg done 04/01 did not show any abscess or deep tissue infection -continue ceftriaxone, total 14 days of antibiotics - can transition to oral tomorrow if continues improving and blood cultures remain negative - initial TTE 03/31 - normal EF, 8x1 mm filament on anterior mitral leaflet - redundant chordae vs vegetation -consulted cardiology to consider YOVANY - YOVANY too high of a risk because of her esophageal varices coagulopathy thrombocytopenia - repeat TTE 04/02 the small filamentous structure was not visualized and there was a good view of the valve, therefore it was likely a chordae and no evidence of endocarditis #Portal Vein Thrombosis On intermediate frame tender warfarin therapy home dose 7.5 mg daily INR goal 2-3, 1.7 today, increased warfarin to 5 mg AM INR #T2DM home meds held. BG above goal today glargine increased to 21u daily, aspart premeal CF20, CR7 #HCV Cirrhosis with portal hypertension, esophageal varices CT with small ascites, not enough to tap. No abdominal pain or tenderness, SBP unlikely Thrombocytopenia due to splenomegaly continue spironolactone - bilirubin and AST/ALT improved compared to admission #Right breast lump - seen on chest CT 08/05/2023. Evaluated with diagnostic mammo and breast ultrasound 10/08/23. 1.7x1.0 irregular hypoechoic mass that was suspicious for malignancy and she was advised to get biopsy, which she declined to do. Not mentioned on admission chest CTA. Will discuss with her. Tickborne panel was sent by admitting team and pending. Oly/Bab smears negative. Babesiosis DNA still pending. Lyme screen was negative. hypomagnesemia, hypokalemia replaced DVT ppx - warfarin probably home tomorrow Admission and Anticipated Discharge Date Admission Date: March 31, 2024 Subjective skin of left leg remains sore but continues to improve redness slowly improving I could not get video spanish interpreter/translator to work despite multiple attempts, therefore, we used voice translation mel Physical Exam Physical Exam: PHYSICAL EXAMINATION Last 24h vital signs reviewed, see documentation in flowsheet General: comfortable appearing, no distress HEENT: Normocephalic, atraumatic, pupils round and equal, sclerae anicteric, no conjunctival injection, moist mucus membranes Lungs: Normal respiratory effort. Heart: Deferred Abdomen: Soft, nondistended. Extremities: Warm, dry, well-perfused. 2+ lower extremity edema. LLE cellulitis continues to improve. Warmth resolving and erythema fading and darkening Neuro: Alert and oriented x 4, face symmetric, moves 4 extremities well Psych: Normal affect and behavior Results & Data Results & Data Vital Signs (Past 12 Hours) Vital Signs Temp Pulse Resp BP Pulse Ox O2 Del Method O2 Flow Rate 04/03/24 08:06 98.2 F 84 18 121/71 95 Room Air 04/03/24 08:00 Nasal Cannula 1 Laboratory Results INR 1.7 PG Care Time/CCT Total # of Minutes Spent Total Time Spent with Patient: Total time spent is greater than 50% in coordination of care (as documented) at patient's floor/unit and/or counseling patient: Coding Level of Care Code 66496 SUB INP/OBS CARE 2/35MIN Diagnoses Bacteremia due to group B Streptococcus R78.81; B95.1 Cellulitis of left lower extremity without foot L03.116 Cirrhosis of liver K74.60 Lump of right breast N63.10 Portal vein thrombosis I81 T2DM (type 2 diabetes mellitus) E11.9 Type 2 diabetes mellitus without complication, without long-term current use of insulin E11.9
[2024-04-03] MEDS: WARFARIN SOD 5 MG TAB PO SCH (15:49)
[2024-04-04 04:27] LABS: Babesia microti DNA Not Detected (Not Detected)
[2024-04-04 07:46] LABS: INR 1.5 (0.9-1.1); Prothrombin Time 15.9 Seconds (9.0-12.0)
[2024-04-04 08:38] VITALS: BP 121/74; PULSE 81; RESP 18; TEMP 97.5; O2SAT 92
[2024-04-04] MEDS: LANTUS PER UNIT CHARGE SQ SCH (08:49)
--- NOTE | 2024-04-04 14:40 | Discharge Summary ---
Discharge Summary Date of Service April 04, 2024 Principal Dx & Hospital Course #1 = Principal Diagnosis (1) Bacteremia due to group B Streptococcus: (2) Cellulitis of left lower extremity without foot: (3) Cirrhosis of liver: (4) Lump of right breast: (5) Portal vein thrombosis: (6) T2DM (type 2 diabetes mellitus): (7) Diabetes: Plan 63 yo female PMHx cirrhosis 2/2 Hep C, esophageal varices, portal vein thrombosis on warfarin, T2DM, venous insufficiency admitted with sepsis related to LLE cellulitis # Sepsis (present on admission) caused by strep agalactiae bacteremia related to SSTI of left ankle No evidence of septic ankle arthritis or abscess based on exam or CT -treated with IV ceftriaxone 2g q24h -initially LLE cellulitis appeared to worsen - CT of left leg done 04/01 did not show any abscess or deep tissue infection -sepsis resolved and left leg cellulitis virtually resolved by day of discharge. -infectious disease consulted -initial TTE 03/31 - normal EF, 8x1 mm filament on anterior mitral leaflet - redundant chordae vs vegetation -consulted cardiology to consider YOVANY - YOVANY too high of a risk because of her esophageal varices coagulopathy thrombocytopenia -repeat TTE 04/02 the small filamentous structure was not visualized and there was a good view of the valve, therefore it was likely a chordae and no evidence of endocarditis -follow up blood cultures have remained negative -discharged on high dose amoxicillin for ten more days (completes 14d total course of antibiotics) #Portal Vein Thrombosis 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 No abdominal pain or tenderness, SBP unlikely Thrombocytopenia due to splenomegaly continue spironolactone - bilirubin and AST/ALT improved compared to admission #Right breast lump - seen on chest CT 08/05/2023. Evaluated with diagnostic mammo and breast ultrasound 10/08/23. 1.7x1.0 irregular hypoechoic mass that was suspicious for malignancy and she was advised to get biopsy, which she declined to do. Not mentioned on admission chest CTA. Discussed with her - she had decided not to pursue and her PCP aware. Follow up with PCP. Gave phone # for [facility] in case she wants to schedule follow up imaging and potential biopsy. Tickborne panel was sent by admitting team and pending. Oly/Bab smears negative. Babesiosis DNA still pending. Lyme screen was negative. Tickborne infection unlikely. hypomagnesemia, hypokalemia replaced I personally reviewed discharge instructions and answered all questions with [employer] [place] video desktop specialist Admission HPI Per Admitting Provider 63 yo female PMHx cirrhosis 2/2 Hep C, esophageal varices, portal vein thrombosis on warfarin, T2DM, venous insufficiency, HLD, known breast mass not further evaluated admitted for fever x1 day. Had measured fever at home of 104F. She endorses being in her usual state of health until yesterday when she started having rigors and could not get warm. She has not been sick lately and denies known sick contacts. Denies recent travel or known tick bites. Endorses some joint pain, denies SOB, CP, abdominal pain, N/V/D. ED Course: CTAP and CTA PE largely unremarkable besides cirrhotic liver and splenomegaly CBC without leukocytosis, thrombocytopenia present near baseline CMP with hypokalemia, hypomagnesemia, mild transaminitis elevated procal tickborne panel sent, RVP negative Febrile on admission, tachycardic received Tylenol, ceftriaxone, doxycycline 1 g mag, 20mEq K, 1L NSS Discharge Exam PHYSICAL EXAMINATION Last 24h vital signs reviewed, see documentation in flowsheet General: comfortable appearing, no distress HEENT: Normocephalic, atraumatic, pupils round and equal, sclerae anicteric, no conjunctival injection, moist mucus membranes Lungs: Normal respiratory effort. Heart: Deferred Abdomen: Soft, nondistended. Extremities: Warm, dry, well-perfused. 1-2+ lower extremity edema. LLE cellulitis continues to improve and virtually resolved at this time Neuro: Alert and oriented x 4, face symmetric, moves 4 extremities well Psych: Normal affect and behavior Discharge Plan Discharge Items Patient Disposition: Home - Self-Care Reason For Visit: FEVER, CELLULITIS? Discharge Diagnosis: left leg cellulitis, group B strep bacteremia, cirrhosis Activity: Per Instructions section Activity Comment: keep left leg elevated until pain/redness resolve Weightbearing: Full weightbearing Non-emergency contact: Primary Care Provider Call non-emergency contact if: you have any medication questions, your symptoms worsen and your temperature is above 101 Follow-up/Referrals: Lucila Dudley, DO [Primary Care Provider] - Diet: Carb Consistent or DM2 Addtl Attending Provider Instructions: You were treated for skin infection of left leg which caused strep bacteria to get into your bloodstream On serial Echo (heart ultrasound) we ruled out a heart infection You need two weeks total antibiotics for this infection - take amoxicillin through 04/14/24 and keep left leg elevated until symptoms resolve Its a good idea to take a probiotic for 2-4 weeks, these are available over the counter at the drug store Antibiotics can affect your warfarin dosing - please have your blood drawn for INR middle of this week, ideally Friday I recommend you have the breast lump biopsied - talk to your primary care doctor about arranging this with the [facility]. Call the Breast [facility] at [phone] to schedule. Hopefully it is nothing serious, but it could be a breast cancer which can be treated It was a pleasure taking care of you in the hospital, Kenya Dyer MD Pending Studies at Discharge: Yes (blood cultures finalize after five days) Stand-Alone Forms: My [facility] [employer], Smoking Cessation Medications and DC Order Prescriptions: New amoxicillin 500 mg tablet 1,000 mg PO Q8H Qty: 30 0RF Rx Instructions: start AM of 04/05 Continued warfarin 5 mg tablet See Rx Instructions PO QPM Qty: 140 1RF Rx Instructions: 7.5mg daily per [facility] orally daily in the evening; dapagliflozin propanediol [Farxiga] 10 mg tablet 10 mg PO DAILY ondansetron 4 mg tablet,disintegrating 4 mg PO TID PRN (Reason: n/v) Qty: 20 0RF spironolactone 1 tab PO DAILY Rx Instructions: unknown dose per son Discharge Orders: Discharge Order (Routine); Ordered 04/04/24 Ordered By: Kenya Hebert/Other Patient Handouts: Managing Type 2 Diabetes Admission Data Admit Date/Time: 03/31/24 05:15 Attending Provider: Kenya Dyer Admit Provider: Emeterio Kebede Primary Care Provider: Lucila Dudley Other Providers: Rosa Maria Myrick; Judi Lyle; Maeve Paredes; Nanda Vasquez; Jong Chavez; Kenya Murillo; Kathi Riggins; Jack De La Fuente; Philip Aparicio; Kendall Emanuel; Elmer Dodd; Joo Jara; Lam Chu Jr; Koffi Domingo; Mari Negron; Rubia Enriquez; Fam Sauer; Fam Da Silva; Igor Mascorro; Charisse Ya; Samuel Rod; Maribell Pena; Wan Julien; Samuel Magaña; Luiz Mccloud; Declan Munoz Other Interventions: Discharge Summary Assessment (RN) Last Done: 04/04/24 09:22 Hospital Stay Data Consultations 03/31/24 03:33 ED Decision to Admit Stat 03/31/24 14:07 Consult Infectious Diseases Routine 04/01/24 13:29 Consult Cardiology Routine Diagnostic Imagining Performed 03/30/24 23:59 CT Abd and Pelvis [CT abd pelvis IV con only] Stat 03/31/24 01:29 CT angio chest PE protocol Stat 04/01/24 14:26 CT leg [CT tib/fib LT w con] Urgent Pending Results Patient Have Any Pending Studies at Discharge: Yes (blood cultures finalize after five days) Discharge Instructions Given to Patient (Per Discharging Provider) You were treated for skin infection of left leg which caused strep bacteria to get into your bloodstream On serial Echo (heart ultrasound) we ruled out a heart infection You need two weeks total antibiotics for this infection - take amoxicillin through 04/14/24 and keep left leg elevated until symptoms resolve Its a good idea to take a probiotic for 2-4 weeks, these are available over the counter at the drug store Antibiotics can affect your warfarin dosing - please have your blood drawn for INR middle of this week, ideally Friday I recommend you have the breast lump biopsied - talk to your primary care doctor about arranging this with the [facility]. Call the Breast Center at [phone] to schedule. Hopefully it is nothing serious, but it could be a breast cancer which can be treated It was a pleasure taking care of you in the hospital, Kenya Dyer MD Total Time Total Time Spent Total Time Spent (In Minutes): I personally spent: 45 minutes today on clinical care activities including: reviewing chart notes and vital signs reviewing labs, micro examining and counseling the patient writing orders writing prescriptions, discharge instructions documentation Coding Level of Care Code 68519 INP/OBS DISCH >30 MIN Diagnoses Bacteremia due to group B Streptococcus R78.81; B95.1 Cellulitis of left lower extremity without foot L03.116 Cirrhosis of liver K74.60 Lump of right breast N63.10 Portal vein thrombosis I81 T2DM (type 2 diabetes mellitus) E11.9 Type 2 diabetes mellitus without complication, without long-term current use of insulin E11.9
== END 2024-04-04 14:43 | disposition home or self-care (01) | DRG 871 ==
LOC: SUATTDRO → ED 23:41 → EDINP 03-31 05:15 → SUATTDRO 03-31 05:15 → 4W 03-31 06:02 → 3N 03-31 21:34

== ENCOUNTER 2024-04-15 23:18 | Inpatient (IN) ==
--- NOTE | 2024-04-16 00:25 | Emergency Department Note ---
Impression & Plan Blister of buttock with infection, Hypomagnesemia, Hypokalemia [facility] Provider Note NAME: BRUNA LAZARO AGE: 63 SEX: Female INFORMANT: Patient ED PROVIDER(S): Brigitte Small DO CHIEF COMPLAINT: fever, chills, weakness, infection of the buttocks PLAN: Disposition: admit to the [facility] MEDICAL DECISION MAKING: this is a 63-year-old female patient with a history of diabetes and a history of recent strep bacteremia from a left foot cellulitis which she was hospitalized for. Patient had been discharged to home on oral antibiotics which she finished on April 11. Patient states that she was doing well until yesterday evening when she developed chills. Today, the chills continued but she developed a fever, weakness, stiff joints and headache. Patient also describes having pain and infection in her left buttocks which started over the past couple of days. there was pus draining from a wound noted on the medial aspect of her left buttocks just lateral to her perineum/rectum. Laboratory studies revealed no leukocytosis or anemia. Platelet count was at 37 which is baseline for the patient. The patient had a low potassium level at 3. Magnesium was also low at 1.5. Troponin was normal. Lactate and procalcitonin were both negative. Blood cultures were obtained. Glucose was 149. Patient was hypertensive and tachycardic with an elevated temperature. Septic protocol was performed. The patient was prophylaxed with IV Zosyn. Was taken of the pus coming from the wound of the buttocks. Upper respiratory bio fire testing was negative. Chest x-ray was unremarkable. Urine testing was negative. Patient remained hemodynamically stable. I [facility] the [facility] and they will evaluate for further inpatient care Care/management discussed with: manager loan; [facility]; the son was an oncology physician initially and then I used the language line as a [place] oncology physician Triage Nursing notes: reviewed and agree with them. Vital Signs: reviewed and remarkable for tachycardia, hypertension and fever Additional History obtained from: patient's son who was at the bedside Chronic Medical/Social Conditions affecting care: multiple chronic health issues, see long list below Prior/ Outside/ External records reviewed: I did review the patient's most recent admission where she was admitted for strep bacteremia Differential Diagnosis: recurrent strep bacteremia; infected blister/wound of the buttocks; Mackenzie's gangrene; pilonidal cyst; sepsis; UTI; upper respiratory viral illness; pneumonia Diagnostics, independently interpreted by me: ECG: normal sinus rhythm at a rate of [address] segment elevation or signs of ischemia. There is no ectopy. Cardiac Monitoring: sinus tachycardia at a rate of 103 Imaging studies: CT scan of the abdomen/pelvis:as per Imbro HPI: 63 year old Female arrives for evaluation of fever and chills. yesterday evening when she developed chills. Today, the chills continued but she developed a fever, weakness, stiff joints and headache. Patient also describes having pain and infection in her left buttocks which started over the past couple of days. Patient was hospitalized earlier this month with bacteremia secondary to strep from a left foot cellulitis. She was treated with IV antibiotics and discharged home on oral antibiotics. Patient describes recovering from this completely. PAST MEDICAL HISTORY: See Below, PAST SURGICAL HISTORY: See Below, SOCIAL HISTORY: See Below, HOME MEDICATIONS: See list ALLERGIES: see list VITALS: See Below PHYSICAL EXAMINATION: HEENT: Head - normocephalic and atraumatic. Pupils are equal, round, and reactive to light. Extraocular eye muscles are intact, and sclera are anicteric. Nose - moist nasal mucosa without discharge. Mouth - moist buccal mucosa. Oropharynx is nonerythematous and there is no tonsillar exudate or edema noted. Neck: Supple; no JVD, nuchal rigidity, cervical lymphadenopathy, or auscultated bruits. Heart: tachycardic rate and regular rhythm. There is a normal S1 and S2 with no murmurs, clicks, or gallops appreciated. Lungs: Clear to auscultation bilaterally with no wheezes, rales, or rhonchi. Abdomen: Soft, completely nontender, nondistended, with good bowel sounds. There are no palpable pulsatile masses or hepatosplenomegaly. There is no guarding, rigidity, or rebound noted. Extremities: No evidence of cyanosis, clubbing, or edema. There are easily palpable peripheral pulses. Skin: warm and dry with good turgor and no rashes. buttocks: There is a blister/wound the size of a match head on the left buttocks just lateral to the perineum/rectum that is draining pus. The left buttock seems firm to the touch and is tender to palpation surrounding that wound. Emergency Department course: The patient was evaluated in room C-3. A complete history and physical was performed. A septic protocol was performed. Patient had obvious Pus draining from this tiny wound on the left buttock near the rectum. a wound culture was obtained. IV lock was initiated and labs are drawn as above. Previous electronic medical records were reviewed. An order was placed for continuous cardiac monitoring. Patient was in a Sinus tachycardia at a rate of 103. upper respiratory bio fire testing was obtained. Portable chest x-ray was performed. Patient declined wanting anything for pain. She went for CT scan of the abdomen/pelvis. She was given a dose of IV Zosyn. She was given replacement IV potassium and replacement IV magnesium. I discussed the case with the [facility] Hospitalist and they will evaluate for further inpatient care. Past Med/Surg History Problem List (Updated 04/16/24 @ 16:52 by Brigitte Small DO) Hypokalemia (Acute) Hypomagnesemia (Acute) Blister of buttock with infection (Acute) Cirrhosis of liver not due to alcohol Hypokalemia Hypomagnesemia Esophageal varices Cellulitis T2DM (type 2 diabetes mellitus) Fever (Acute) Lump of right breast Portal vein thrombosis (dx in 2020) currently on warfarin. Abnormal CT of the abdomen Pleural effusion, right Pneumonia (Acute) Diarrhea Vertigo Helicobacter pylori gastritis Bacteremia due to group B Streptococcus Morbid obesity with BMI of 40.0-44.9, adult Left leg pain (Acute) Cellulitis of left lower extremity without foot (Acute) Encounter for pre-operative examination Current use of retirement anticoagulation (Chronic) Abnormal LFTs (Acute) UTI (urinary tract infection) (Acute) Rash (Acute) Thrombocytopenia (Acute) Fever (Acute) Disseminated Lyme disease DVT prophylaxis Hip pain Hyponatremia Erythema migrans (Lyme disease) Back pain (Acute) Ascites no longer gets para's , on diurectics Cirrhosis of liver (Acute) Diabetes (Acute) NIDDM Medical History Acute pancreatitis Lyme disease Hx of sepsis Hx of small bowel obstruction Hx of Lyme disease treated, no current issues Hx of hepatitis C dx in [place] in 2019 during a vacation - son states patient did have treatment in the past unsure if it was October 2020 or October 2021. Edema bilateral legs, rare Hypothyroidism hx of taking levothyroxine in November 2021 -- no longer takes. Venous stasis dermatitis of both lower extremities Surgical History History of abdominal paracentesis H/O umbilical hernia repair (~01/2020) [place] Family History Mother Gastric cancer Father Stroke Social History Smoking Status: Never smoker Second Hand Exposure: No; Do You Dip or Chew Tobacco: No; Hx Alcohol Use: No Hx Substance Use: No Preferred Language: [place] Communication Ability: Effective Communication Ability Comment: Limited understanding of Ukrainian. 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 Feels Safe at Home: Yes Safety Concerns: Feels Safe At This Time Assistive Devices: Walker Allergies Allergies Allergy/AdvReac Type Severity Reaction Status Date / Time menthol Allergy Severe Anaphylaxis Verified 07/01/23 14:36 mint Allergy Severe Anaphylaxis Verified 07/01/23 14:36 Home Meds Home Medications Medication Instructions Recorded Confirmed dapagliflozin propanediol 10 mg 10 mg PO DAILY 07/26/23 04/16/24 tablet (Farxiga) spironolactone 1 tab PO DAILY 03/31/24 04/16/24 Previous Rx's Medication Instructions Recorded ondansetron 4 mg disintegrating 4 mg PO TID PRN n/v #20 tabs 07/29/23 tablet warfarin 5 mg tablet See Rx Instructions PO QPM #140 02/24/24 tabs Results & Data (ED) Vital Signs Vital Signs - 24 hr 04/15/24 23:19 04/15/24 23:59 04/16/24 00:49 Temperature 37.6 C H 37.2 C Temperature Source Oral Oral Pulse Rate 99 H 93 H Pulse Rate [Apical] 91 H Pulse Rate from SpO2 Sensor Pulse Rhythm [Apical] Regular Pulse Strength [Apical] Normal Respiratory Rate 22 19 Respiratory Effort / Characteristics Non-Labored Spontaneous Non-Labored Spontaneous Respiratory Depth Normal Normal Respiratory Pattern Regular Blood Pressure 168/81 H Blood Pressure [Right Arm] 134/71 Blood Pressure Mean 110 Blood Pressure Mean [Right Arm] 92 Blood Pressure Position [Right Arm] Sitting Pulse Oximetry 94 94 Oxygen Delivery Method Room Air Room Air Sepsis Recent Fever Within 48 Hours Yes Sepsis New/Unexplained Change in Mental Status No Sepsis Action Taken by Nursing No Action Required 04/16/24 01:33 04/16/24 02:00 04/16/24 03:37 Temperature Temperature Source Pulse Rate 89 89 Pulse Rate [Apical] 83 Pulse Rate from SpO2 Sensor 88 88 Pulse Rhythm [Apical] Regular Pulse Strength [Apical] Normal Respiratory Rate 19 19 20 Respiratory Effort / Characteristics Non-Labored Spontaneous Respiratory Depth Normal Respiratory Pattern Regular Blood Pressure 137/69 134/74 Blood Pressure [Right Arm] 195/99 H Blood Pressure Mean 91 94 Blood Pressure Mean [Right Arm] 131 Blood Pressure Position [Right Arm] Pulse Oximetry 92 91 95 Oxygen Delivery Method Room Air Room Air Room Air Sepsis Recent Fever Within 48 Hours Sepsis New/Unexplained Change in Mental Status Sepsis Action Taken by Nursing 04/16/24 03:52 Temperature Temperature Source Pulse Rate 84 Pulse Rate [Apical] Pulse Rate from SpO2 Sensor Pulse Rhythm [Apical] Pulse Strength [Apical] Respiratory Rate Respiratory Effort / Characteristics Respiratory Depth Respiratory Pattern Blood Pressure Blood Pressure [Right Arm] Blood Pressure Mean Blood Pressure Mean [Right Arm] Blood Pressure Position [Right Arm] Pulse Oximetry Oxygen Delivery Method Sepsis Recent Fever Within 48 Hours Sepsis New/Unexplained Change in Mental Status Sepsis Action Taken by Nursing Laboratory Data 04/16/24 00:05 04/16/24 00:05 Lab Results 04/16/24 04/16/24 04/16/24 Range/Units 00:05 00:08 01:11 WBC 5.49 (4.8-10.8) K/ul RBC 4.40 (4.20-5.40) M/uL Hgb 13.7 (12.0-16.0) g/dl Hct 39.5 (37.0-47.0) % MCV 89.8 (80.0-100.0) fL MCH 31.1 (25.0-34.0) pg MCHC 34.7 (32.0-36.0) g/dL RDW Std Deviation 48.7 H (36.4-46.3) fL RDW Coeff of Meg 14.7 H (11.5-14.5) % Plt Count 37 L (130-400) K/uL MPV 14.4 H (9.4-12.4) fL Immature Gran % (Auto) 0.5 % Neut % (Auto) 77.7 % Lymph % (Auto) 12.6 % [place] % (Auto) 6.6 % Eos % (Auto) 2.2 % Baso % (Auto) 0.4 % Neut # (Auto) 4.27 (1.40-6.50) K/uL Lymph # (Auto) 0.69 L (1.20-3.40) K/uL [place] # (Auto) 0.36 (0.11-0.59) K/uL Eos # (Auto) 0.12 (0.00-0.50) K/uL Baso # (Auto) 0.02 (0.00-0.20) K/uL Immature Gran # (Auto) 0.03 (0.01-0.20) K/uL Sodium 135 L (136-145) mmol/L Potassium 3.0 L (3.5-5.1) mmol/L Chloride 104 (98-107) mmol/L Carbon Dioxide 24 (21-32) mmol/L Anion Gap 7 (3-11) BUN 11 (6-23) mg/dl Creatinine 0.46 L (0.6-1.2) mg/dl Est Cr Clr Drug Dosing 158.2 ml/min eGFR 106.79 BUN/Creatinine Ratio 23.9 H (10-20) Glucose 149 H (70-99(Fasting)) mg/dl Lactate 1.5 (0.4-2.0) mmol/L Calcium 8.3 L (8.6-10.3) mg/dl Magnesium 1.5 L (1.7-2.4) mg/dl Total Bilirubin 2.6 H (0.2-1.0) mg/dl Direct Bilirubin 0.5 H (0-0.2) mg/dl AST 37 (13-39) U/L ALT 31 (7-52) U/L Alkaline Phosphatase 94 (34-104) U/L Troponin I High Sens 5.5 (0-14) pg/ml Total Protein 7.0 (6.0-8.3) gm/dl Albumin 3.3 L (3.4-5.0) gm/dl Procalcitonin 0.12 (0-0.5) ng/ml Urine Color Yellow Urine Appearance Clear (Clear) Urine pH 5.5 (4.5-7.5) Ur Specific [place] 1.045 H (1.000-1.030) Urine Protein Negative (Negative) Urine Glucose (UA) 3+ H (Negative) Urine Ketones 2+ H (Negative) Urine Blood Trace H (Negative) Urine Nitrite Negative (Negative) Urine Bilirubin Negative (Negative) Urine Urobilinogen Negative (Negative) Ur Leukocyte Esterase Negative (Negative) Urine WBC (Auto) 11-20 H (0-5) /hpf Urine RBC (Auto) 0-2 (0-2) /hpf U Hyaline Cast (Auto) 0-2 (0-2) /lpf U Epithel Cells (Auto) 0-2 (0-2) /hpf Urine Bacteria (Auto) None Seen (None Seen) Adenovirus (PCR) Not Detected (NotDetected) B. pertussis DNA (PCR) Not Detected (NotDetected) B.parapertussis DNA PCR Not Detected (NotDetected) C. pneumoniae DNA (PCR) Not Detected (NotDetected) Coronavirus OC43 (PCR) Not Detected (NotDetected) Coronavirus HKU1 (PCR) Not Detected (NotDetected) Coronavirus 229E (PCR) Not Detected (NotDetected) SARS-CoV-2 (PCR) Not Detected (NotDetected) Coronavirus NL63 (PCR) Not Detected (NotDetected) Human Metapneumovir PCR Not Detected (NotDetected) Influenza Type A (PCR) Not Detected (NotDetected) Influenza Type B (PCR) Not Detected (NotDetected) M. pneumoniae (PCR) Not Detected (NotDetected) Parainfluenza 1 (PCR) Not Detected (NotDetected) Parainfluenza 2 (PCR) Not Detected (NotDetected) Parainfluenza 3 (PCR) Not Detected (NotDetected) Parainfluenza 4 (PCR) Not Detected (NotDetected) RSV (PCR) Not Detected (NotDetected) Entero/Rhino (PCR) Not Detected (NotDetected) Administered Medications Methylprednisolone 40 mg/ (Syringe) 0.64 mls @ 1.5 mls/min IV Q8H JOSE DAVID Stop: 05/16/24 11:59 Last Admin: 04/16/24 12:39 Dose: 1.5 mls/min Documented By: SHAYLEE Insulin Aspart (Insulin Aspart Per Unit Charge) 0 units SC ACHS JOSE DAVID Stop: 05/16/24 11:29 Last Admin: 04/16/24 14:12 Dose: 5 units Documented By: SUZANNE Co-signed By: KYLIE Spironolactone (Spironolactone 100 Mg Tab) 100 mg PO DAILY [facility] Stop: 05/16/24 08:59 Last Admin: 04/16/24 08:47 Dose: 100 mg Documented By: SHAYLEE Discontinued Medications Potassium Chloride (K Raymond / Wtr) 10 meq in 100 mls @ 100 mls/hr IV ONE ONE Stop: 04/16/24 02:05 Last Infusion: 04/16/24 02:48 Dose: Infused Documented By: Admin: 04/16/24 01:45 Dose: 100 mls/hr Documented By: ANGUS Magnesium Sulfate/Dextrose (Magnesium Sulfate / D5w) 1 gm in 100 mls @ 100 mls/hr IV NOW STA Stop: 04/16/24 02:05 Last Infusion: 04/16/24 02:48 Dose: Infused Documented By: Admin: 04/16/24 01:45 Dose: 100 mls/hr Documented By: ANGUS Piperacillin Sod/Tazobactam Sod (Zosyn) 4.5 gm in 100 mls @ 200 mls/hr IV NOW ONE; Protocol Stop: 04/16/24 01:37 Last Infusion: 04/16/24 02:00 Dose: Infused Documented By: Admin: 04/16/24 01:27 Dose: 200 mls/hr Documented By: ANGUS Sodium Chloride (Nss) 500 mls @ 999 mls/hr IV .Q31M ONE Stop: 04/16/24 02:10 Last Infusion: 04/16/24 02:22 Dose: Infused Documented By: Admin: 04/16/24 01:49 Dose: 999 mls/hr Documented By: ANGUS Sodium Chloride (Nss) 500 mls @ 125 mls/hr IV .Q4H JOSE DAVID Stop: 04/16/24 05:44 Last Infusion: 04/16/24 07:51 Dose: Infused Documented By: Admin: 04/16/24 02:52 Dose: 125 mls/hr Documented By: ANGUS Daptomycin 325 mg/ Syringe 6.5 mls @ 3.25 mls/min IV Q24H JOSE DAVID; Protocol Stop: 04/18/24 05:59 Last Admin: 04/16/24 06:12 Dose: 3.25 mls/min Documented By: SAI Cefepime HCl (Maxipime 2000mg) 2,000 mg in 20 mls @ 5 mls/min IV Q12H JOSE DAVID; Protocol Stop: 04/18/24 05:14 Last Admin: 04/16/24 06:05 Dose: 5 mls/min Documented By: SAI Magnesium Sulfate/Dextrose (Magnesium Sulfate / D5w) 1 gm in 100 mls @ 50 mls/hr IV Q2H JOSE DAVID Stop: 04/16/24 09:14 Last Infusion: 04/16/24 10:12 Dose: Infused Documented By: Admin: 04/16/24 07:51 Dose: 50 mls/hr Documented By: Infusion: 04/16/24 07:50 Dose: Infused Documented By: Admin: 04/16/24 06:05 Dose: 50 mls/hr Documented By: SAI Insulin Aspart (Insulin Aspart Per Unit Charge) 0 units SC ACHS JOSE DAVID Stop: 05/16/24 07:29 Last Admin: 04/16/24 08:44 Dose: Not Given Documented By: SHAYLEE Ioversol (Optiray 320 100ml) 100 ml IV ONCE ONE Stop: 04/16/24 01:22 Last Admin: 04/16/24 01:22 Dose: 93 ml Documented By: NIKOLAS Potassium Chloride (Potassium Chloride Crtab 20 Meq Tabcr) 40 meq PO NOW STA Stop: 04/16/24 05:11 Last Admin: 04/16/24 06:04 Dose: 40 meq Documented By: SAI Imaging Data Radiologist's Impression: Shoulder X-Ray 04/16/24 04:40 EXAM: XR shoulder LT min 2V routine CLINICAL HISTORY: LT SHOULDER PAIN TECHNIQUE: X-ray images of the left shoulder were obtained in anteroposterior (AP) and Y-view projections. COMPARISON: No prior studies are available for comparison. FINDINGS: Bone Structure: Bone structure is normal and aligned. No evidence of fracture or dislocation. Humeral head is properly positioned in the glenoid fossa. No osseous lesions or abnormalities identified. Joint Spaces: Acromioclavicular and glenohumeral arthritic changes with marginal osteophytes, narrowing joint spaces,and subtle cystic changes. Bony osteopenia Soft Tissues: Soft tissues appear normal and unremarkable. No soft tissue swelling, calcifications, or foreign bodies noted. Left lung lower zone atelectatic changes IMPRESSION: 1. Acromioclavicular and glenohumeral arthritic changes with marginal osteophytes, narrowing joint spaces,and subtle cystic changes. 2. Osteopenia. Disclaimer: A subtle bone abnormality or fracture may not be readily apparent on X-rays, thus clinical correlation and further imaging including follow-up CT, MRI, or follow-up X-rays are advised as needed. Electronically signed by Zay Lamb 04-16-2024 05:51 AM Discharge Plan Visit Data Chief Complaint: Flu Like Symptoms Stated Complaint: FEVER, DIZZINESS, WEAKNESS, JOINT PAIN ED Provider: Brigitte Small Discharge Problem: Blister of buttock with infection, Hypomagnesemia, Hypokalemia Discharge Instructions Interventions: ED Discharge Assessment Last Done: 04/16/24 05:07
[2024-04-16 00:50] LABS: Albumin Level 3.3 gm/dl (3.4-5.0); BUN Creatinine Ratio 23.9 (10-20); Bilirubin Direct 0.5 mg/dl (0-0.2); Bilirubin,Total 2.6 mg/dl (0.2-1.0); Calcium 8.3 mg/dl (8.6-10.3); Creatinine Clr Calc Pharmacy 158.2 ml/min; Magnesium 1.5 mg/dl (1.7-2.4)
[2024-04-16 00:53] LABS: Basophils # (auto) 0.02 K/uL (0.00-0.20); Basophils % (auto) 0.4 %; Eosinophils # (auto) 0.12 K/uL (0.00-0.50); Eosinophils % (auto) 2.2 %; Hematocrit (blood only) 39.5 % (37.0-47.0); Hemoglobin 13.7 g/dl (12.0-16.0); Immature Granulocytes # (auto) 0.03 K/uL (0.01-0.20); Immature Granulocytes % (auto) 0.5 %; Lymphocytes # (auto) 0.69 K/uL (1.20-3.40); Lymphocytes % (auto) 12.6 %; Mean Corpuscular Hemoglobin 31.1 pg (25.0-34.0); Mean Corpuscular Hgb Conc 34.7 g/dL (32.0-36.0); Mean Corpuscular Volume 89.8 fL (80.0-100.0); Mean Platelet Volume 14.4 fL (9.4-12.4); Monocytes # (auto) 0.36 K/uL (0.11-0.59); Monocytes % (auto) 6.6 %; Neutrophils # (auto) 4.27 K/uL (1.40-6.50); Neutrophils % (auto) 77.7 %; Platelet Count 37 K/uL (130-400); RDW Coefficient of Variation 14.7 % (11.5-14.5); RDW Standard Deviation 48.7 fL (36.4-46.3); White Blood Count 5.49 K/ul (4.8-10.8)
[2024-04-16 00:55] LABS: Troponin I High Sensitivity 5.5 pg/ml (0-14)
[2024-04-16] MEDS: OPTIRAY 320 100ml IV ONE (01:22)
[2024-04-16 01:23] LABS: Adenovirus PCR Not Detected (NotDetected); Bordetella parapertussis PCR Not Detected (NotDetected); Bordetella pertussis PCR Not Detected (NotDetected); Chlamydia pneumoniae PCR Not Detected (NotDetected); Coronavirus 229E PCR Not Detected (NotDetected); Coronavirus CoV-2 (COVID19)PCR Not Detected (NotDetected); Coronavirus HKU1 PCR Not Detected (NotDetected); Coronavirus NL63 PCR Not Detected (NotDetected); Coronavirus OC43PCR Not Detected (NotDetected); Human Metapneumovirus PCR Not Detected (NotDetected); Influenza A PCR Not Detected (NotDetected); Influenza B PCR Not Detected (NotDetected); Mycoplasma pneumoniae PCR Not Detected (NotDetected); Parainfluenza Virus 1 PCR Not Detected (NotDetected); Parainfluenza Virus 2 PCR Not Detected (NotDetected); Parainfluenza Virus 3 PCR Not Detected (NotDetected); Parainfluenza Virus 4 PCR Not Detected (NotDetected); Respiratory Syncytial VirusPCR Not Detected (NotDetected); Rhinovirus/Enterovirus PCR Not Detected (NotDetected)
[2024-04-16] MEDS: PIPERACILLIN/TAZOBACTAM 4.5 GM/100 ML BAG IV ONE (01:27)
[2024-04-16 01:30] LABS: Appearance Urine Clear (Clear); Bacteria Urine Automated None Seen (None Seen); Bilirubin Urine Negative (Negative); Blood Urine Trace (Negative); Cast Urine Automated 0-2 /lpf (0-2); Color Urine Yellow; Epithelial Cell Urine Auto 0-2 /hpf (0-2); Glucose Urine UA 3+ (Negative); Ketones Urine 2+ (Negative); Leukocyte Esterase Urine Negative (Negative); Nitrite Urine Negative (Negative); Protein Urine Negative (Negative); RBC Urine Automated 0-2 /hpf (0-2); Specific Gravity Urine 1.045 (1.000-1.030); Urobilinogen Urine Negative (Negative); pH Urine 5.5 (4.5-7.5)
[2024-04-16] MEDS: POTASSIUM CHLORIDE / WTR 10 MEQ/100 ML PLCT IV ONE (01:45)
[2024-04-16] MEDS: MAGNESIUM SULFATE / D5W 1 GM/100 ML BAG IV STA (01:45)
[2024-04-16] MEDS: SODIUM CHLORIDE 0.9% 500 ML IV ONE (01:49)
--- NOTE | 2024-04-16 02:47 | XRay Report ---
EXAM: XR chest 1V portable CLINICAL HISTORY: SEPSIS JMF TECHNIQUE: An X-ray image of the chest is obtained in AP projection. COMPARISON: CT/CR Dated: 03/31/2024, Reviewed CT abdomen and pelvis for lower chest dated 04/15/2024 FINDINGS: Pulmonary Parenchyma: Bilateral perihilar pulmonary markings with peribronchial cuffing. Inhomogeneous shadowing both subhilar and lower zones medially. No evidence of pleural effusion or pleural thickening. Heart and Mediastinum: Mild cardiomegaly. No mediastinal widening or masses. No hilar or mediastinal lymphadenopathy. Bony Thorax: The bony thorax appears intact without fractures or deformities. Soft Tissues: Soft tissues overlying the chest wall are unremarkable. IMPRESSION: 1. Possible bilateral sub-hilar pulmonary infiltration/atelectasis. Interval new finding. 2. Mild cardiomegaly. Mild bilateral perihilar pulmonary congestion. Interval stable. 3. A recent CT abdomen and pelvis showed right mild pleural effusion. Electronically signed by Zay Lamb 04-16-2024 02:46 AM
[2024-04-16] MEDS: SODIUM CHLORIDE 0.9% 500 ML IV SCH (02:52)
--- NOTE | 2024-04-16 03:13 | CT Scan Report ---
EXAM: CT abd pelvis IV con only CLINICAL HISTORY: None TECHNIQUE: Contiguous axial images were obtained from the level of the diaphragm to the pubic symphysis with intravenous contrast. Coronal and sagittal reconstructions were likewise performed and indicated to increase the sensitivity for detecting clinically relevant pathology. If IV contrast material had not been administered, the likelihood of detecting abnormalities relevant to the patient's condition would have been substantially decreased. CT scan was performed according to ALARA (as low as reasonable achievable). COMPARISON: august 14 FINDINGS: Mild right sided pleural effusion with passive subsegmental collapse of lower lobe. The liver appears mildly smaller in size and shows heterogeneous parenchyma with irregular contour. The portal vein appears dilated and multiple collaterals are noted involving peripancreatic region at the gastric cardia and perisplenic region. The spleen appears enlarged measuring up to 26 cm. Mild fat stranding/congestion is noted involving root of mesentery in right paracolic region. Mesentric congestion seen. There is no intra or extrahepatic biliary ductal dilatation. Hepatic vasculature is patent. The gallbladder is present. The pancreas, and adrenal glands are unremarkable. The kidneys are normal in size and attenuation. There is no hydronephrosis or perinephric fat stranding. No renal calculi or renal masses are identified. The ureters are normal in caliber and no ureteral calculi are seen. The bladder is normal in contour. Pelvic viscera are unremarkable. No focal or diffuse bowel wall thickening or evidence of bowel obstruction is identified. No evidence of inflamed appendix. Abdominal and pelvic vasculature is patent. No adenopathy or fluid collections are seen. Few prominent jejunal loops seen in upper and mid abdomen. No evidence of obstruction. No aggressive appearing osseous lesions are identified. IMPRESSION: Mild right sided pleural effusion with passive subsegmental collapse of lower lobe.-stable. The liver appears mildly smaller in size and shows heterogeneous parenchyma with irregular contour.- suggest cirrhosis of liver.-stable. The portal vein appears dilated and multiple collaterals are noted involving peripancreatic region at the gastric cardia and at the splenic hilum . - suggest portal hypertension.-stable. Gross splenomegaly. Mild fat stranding/congestion is noted involving root of mesentery in right paracolic region.-stable. Electronically signed by Naeem John 04-16-2024 03:12 AM
--- NOTE | 2024-04-16 04:54 | History & Physical Report ---
Date of Service April 16, 2024 Assessment & Plan (1) Fever: (2) Hypomagnesemia: (3) Hypokalemia: Plan 63-year-old female PMHx cirrhosis secondary to hepatitis C, esophageal varices, PVT on warfarin, T2DM, venous insufficiency, HLD, and known breast mass coming to ED for fever, weakness and stiff joints. Interpreting services used to obtain history. Main complaint at time of visit is severe L shoulder pain. CBC revealed no leukocytosis, CMP had sodium 135, potassium 3.0, calcium 8.3, magnesium 1.5, and elevated total bilirubin direct bilirubin. Procalcitonin revealed normal findings, normal lactate, no anion gap. UA revealed no signs of infection. BioFire was also negative. CTAP revealed chronic and stable findings. CXR with possible bilateral subhilar pulmonary infiltrates/atelectasis. Received 1 dose Zosyn in ED. #Fever Unclear as to what the source of her fever of 104 F was. Also complaining of chills, joint stiffness, and head pressure. Main complaint at time of visit is left shoulder pain, so severe that the he touching the skin causes significant pain. No leukocytosis, but given recent bacteremia secondary to E cellulitis, more inclined to treat empirically and await blood culture results to tailor antibiotics. Wound on inner L buttocks pinpoint in size, ? similar to prior wound at [facility]. No known sources of hardware aside from dental implants. Biofire negative. - Acetaminophen for pain/fever, Zofran for N/V - Empiric antibiotics cefepime/daptomycin --> ordered as EMPIRIC, will drop off after 48 hours - Pending blood cultures - CBC, BMP a.m. - Consider ID consult depending on blood culture results #Shoulder pain, L Onset of severe shoulder pain, left side. Denying trauma or injury to the area. Exam of the limb yields no abnormalities to inspection, but significant tenderness to palpation throughout entire shoulder. Limited PROM and ROM. - Heating pad as needed, pain management as needed - X-ray pending #Hypomagnesemia Magnesium found to be 1.5 on admission, received 1 g mag sulfate in ED. - MgSO4 2g IV - BMP am #Hypokalemia Asymptomatic currently; admitting K was 3.0; received 10 mEq KCl in ED. Magnesium also low at time of admission, replacing both. - Mg 1.5 at admission - 40 mEq KCl po now - BMP am #T2DM H/o DMT2; on Farxiga - Most recent A1C 03/2024 @ 8.1% - SSI with target BSG range 110-140mg/dL, CF 20, carb ratio 10 - BSG ACHS - Pharm glycemic management consult placed, appreciate input - adjust regimen as needed #Cirrhosis/portal vein thrombosis Cirrhosis 2/2 hepatitis C. On chronic warfarin for PVT - Continue warfarin; INR goal 2-3 - CTAP without acute findings at time of admission - AST/ALT WNL; total bilirubin 2.6, direct bilirubin 0.5 Dispo: Admit, med/sx VTE prophylaxis: Warfarin This document was dictated utilizing [employer]. Please excuse any grammatical errors that may be secondary to use of this software. Admission and Anticipated Discharge Date Admission Date: 04/16/2024 History of Present Illness Chief Complaint: Fever, joint stiffness Primary Care Provider: Lucila Dudley DO 63-year-old female PMHx cirrhosis secondary to hepatitis C, esophageal varices, PVT on warfarin, T2DM, venous insufficiency, HLD, and known breast mass coming to ED for fever, weakness and stiff joints. Interpreting services used to obtain history. Main complaint at time of visit is severe L shoulder pain. This recent admission 03/31-04/04 for strep bacteremia secondary to L foot cellulitis, completed antibiotics 04/11. No known trauma or injury to the area, but severe pain when touching multiple areas throughout the shoulder. Also complaining of head pressure, and fever of 104.4 F evening prior to arrival. Day of arrival, additional symptoms of weakness, joint stiffness, and headaches develop. Did have left buttock pain as well. Overall able to complete the patient has no chest pain, shortness of breath, or abdominal pain. Please see Dr. Myrick's attestation for adjustments/additions to treatment plan. Allergies Allergy/AdvReac Type Severity Reaction Status Date / Time menthol Allergy Severe Anaphylaxis Verified 07/01/23 14:36 mint Allergy Severe Anaphylaxis Verified 07/01/23 14:36 Home Medications Medication Instructions Recorded Confirmed Type dapagliflozin propanediol 10 mg 10 mg PO DAILY 07/26/23 04/16/24 History tablet (Farxiga) ondansetron 4 mg disintegrating 4 mg PO TID PRN n/v #20 tabs 07/29/23 04/16/24 Rx tablet warfarin 5 mg tablet See Rx Instructions PO QPM #140 02/24/24 04/16/24 Rx tabs spironolactone 1 tab PO DAILY 03/31/24 04/16/24 History Past Med/Surg History Problem List (Updated 04/16/24 @ 16:52 by Brigitte Small DO) Hypokalemia (Acute) Hypomagnesemia (Acute) Blister of buttock with infection (Acute) Cirrhosis of liver not due to alcohol Hypokalemia Hypomagnesemia Esophageal varices Cellulitis T2DM (type 2 diabetes mellitus) Fever (Acute) Lump of right breast Portal vein thrombosis (dx in 2020) currently on warfarin. Abnormal CT of the abdomen Pleural effusion, right Pneumonia (Acute) Diarrhea Vertigo Helicobacter pylori gastritis Bacteremia due to group B Streptococcus Morbid obesity with BMI of 40.0-44.9, adult Left leg pain (Acute) Cellulitis of left lower extremity without foot (Acute) Encounter for pre-operative examination Current use of fpc anticoagulation (Chronic) Abnormal LFTs (Acute) UTI (urinary tract infection) (Acute) Rash (Acute) Thrombocytopenia (Acute) Fever (Acute) Disseminated Lyme disease DVT prophylaxis Hip pain Hyponatremia Erythema migrans (Lyme disease) Back pain (Acute) Ascites no longer gets para's , on diurectics Cirrhosis of liver (Acute) Diabetes (Acute) NIDDM Medical History Acute pancreatitis Lyme disease Hx of sepsis Hx of small bowel obstruction Hx of Lyme disease treated, no current issues Hx of hepatitis C dx in [place] in 2019 during a vacation - [facility] patient did have treatment in the past unsure if it was October 2020 or October 2021. Edema bilateral legs, rare Hypothyroidism hx of taking levothyroxine in November 2021 -- no longer takes. Venous stasis dermatitis of both lower extremities Surgical History History of abdominal paracentesis H/O umbilical hernia repair (~01/2020) [place] Family History Mother Gastric cancer Father Stroke Social History Smoking Status: Never smoker Second Hand Exposure: No; Do You Dip or Chew Tobacco: No; Hx Alcohol Use: No Hx Substance Use: No Preferred Language: Peruvian Communication Ability: Effective Communication Ability Comment: Limited understanding of Kazakh. 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 Feels Safe at Home: Yes Assistive Devices: Walker Review of Systems Review of Systems: All systems reviewed & are unremarkable except as noted in Subjective Physical Exam Physical Exam: General: No acute distress, appearing uncomfortable to be in pain Skin: Warm and dry; lower extremities chronic changes Head: Normocephalic, atraumatic Eyes: PERRL, conjunctivae clear, sclera non-icteric ENT: External ear and ear canal without swelling; nose atraumatic; fair dentition, tongue normal appearance, pharynx normal without tonsillar swelling or exudate Neck: Supple, no LAD Cardio: RRR, no M/G/R, S1 and S2 normal Resp: No respiratory distress, Lungs CTA in all lobes bilaterally, no wheezes, rales, or rhonchi Abdomen: Soft, symmetric, some tenderness to palpation of left quadrant; no distention; No masses or hepatosplenomegaly; Bowel sounds normoactive; buttocks with pinpoint wound along the inner left buttocks, near anus. Myself and Dr. Myrick present in room during this portion of the visit. MSK: No deformities, limited ROM of LUE, otherwise full ROM throughout; tenderness to palpation left shoulder w/o erythema, edema, or warm to touch, multiple locations posteriorly and anteriorly causing significant pain w/ palpation; pulses palpable and equal; no edema. Neuro: Awake, alert; CN grossly intact Psych: Appropriate mood and affect Both Dr. Myrick and myself present in room during entire time of visit. Interpreting services set up via iPad, audio. Results & Data Results & Data Vital Signs (Past 12 Hours) Vital Signs Temp Pulse Pulse Resp BP BP Pulse Ox 04/16/24 03:52 84 04/16/24 03:37 83 20 195/99 H 95 04/16/24 02:00 89 19 134/74 91 04/16/24 01:33 89 19 137/69 92 04/16/24 00:49 37.2 C 91 H 19 134/71 94 04/15/24 23:59 93 H 04/15/24 23:19 37.6 C H 99 H 22 168/81 H 94 O2 Del Method 04/16/24 03:52 04/16/24 03:37 Room Air 04/16/24 02:00 Room Air 04/16/24 01:33 Room Air 04/16/24 00:49 Room Air 04/15/24 23:59 04/15/24 23:19 Room Air Laboratory Results 04/15/24 23:50 Gram Stain - Pending Buttock,Left Wound Culture - Pending 04/16/24 01:11 Urine Culture - Pending Urine,Clean Catch 04/16/24 00:10 Aerobic Blood Culture - Pending Blood Anaerobic Blood Culture - Pending 04/16/24 00:05 Aerobic Blood Culture - Pending Blood Anaerobic Blood Culture - Pending 04/16/24 04/16/24 04/16/24 01:11 00:08 00:05 WBC 5.49 RBC 4.40 Hgb 13.7 Hct 39.5 MCV 89.8 MCH 31.1 MCHC 34.7 RDW Std Deviation 48.7 H RDW Coeff of Meg 14.7 H Plt Count 37 L MPV 14.4 H Immature Gran % (Auto) 0.5 Neut % (Auto) 77.7 Lymph % (Auto) 12.6 [place]linger % (Auto) 6.6 Eos % (Auto) 2.2 Baso % (Auto) 0.4 Neut # (Auto) 4.27 Lymph # (Auto) 0.69 L Bollinger # (Auto) 0.36 Eos # (Auto) 0.12 Baso # (Auto) 0.02 Immature Gran # (Auto) 0.03 Sodium 135 L Potassium 3.0 L Chloride 104 Carbon Dioxide 24 Anion Gap 7 BUN 11 Creatinine 0.46 L Est Cr Clr Drug Dosing 158.2 eGFR 106.79 BUN/Creatinine Ratio 23.9 H Glucose 149 H Lactate 1.5 Calcium 8.3 L Magnesium 1.5 L Total Bilirubin 2.6 H Direct Bilirubin 0.5 H AST 37 ALT 31 Alkaline Phosphatase 94 Troponin I High Sens 5.5 Total Protein 7.0 Albumin 3.3 L Procalcitonin 0.12 Urine Color Yellow Urine Appearance Clear Urine pH 5.5 Ur Specific [place] 1.045 H Urine Protein Negative Urine Glucose (UA) 3+ H Urine Ketones 2+ H Urine Blood Trace H Urine Nitrite Negative Urine Bilirubin Negative Urine Urobilinogen Negative Ur Leukocyte Esterase Negative Urine WBC (Auto) 11-20 H Urine RBC (Auto) 0-2 U Hyaline Cast (Auto) 0-2 U Epithel Cells (Auto) 0-2 Urine Bacteria (Auto) None Seen Adenovirus (PCR) Not Detected B. pertussis DNA (PCR) Not Detected B.parapertussis DNA PCR Not Detected C. pneumoniae DNA (PCR) Not Detected Coronavirus OC43 (PCR) Not Detected Coronavirus HKU1 (PCR) Not Detected Coronavirus 229E (PCR) Not Detected SARS-CoV-2 (PCR) Not Detected Coronavirus NL63 (PCR) Not Detected Human Metapneumovir PCR Not Detected Influenza Type A (PCR) Not Detected Influenza Type B (PCR) Not Detected M. pneumoniae (PCR) Not Detected Parainfluenza 1 (PCR) Not Detected Parainfluenza 2 (PCR) Not Detected Parainfluenza 3 (PCR) Not Detected Parainfluenza 4 (PCR) Not Detected RSV (PCR) Not Detected Entero/Rhino (PCR) Not Detected Diagnostic Findings Chest X-Ray 04/15/24 23:39 EXAM: XR chest 1V portable CLINICAL HISTORY: SEPSIS JMF TECHNIQUE: An X-ray image of the chest is obtained in AP projection. COMPARISON: CT/CR Dated: 03/31/2024, Reviewed CT abdomen and pelvis for lower chest dated 04/15/2024 FINDINGS: Pulmonary Parenchyma: Bilateral perihilar pulmonary markings with peribronchial cuffing. Inhomogeneous shadowing both subhilar and lower zones medially. No evidence of pleural effusion or pleural thickening. Heart and Mediastinum: Mild cardiomegaly. No mediastinal widening or masses. No hilar or mediastinal lymphadenopathy. Bony Thorax: The bony thorax appears intact without fractures or deformities. Soft Tissues: Soft tissues overlying the chest wall are unremarkable. IMPRESSION: 1. Possible bilateral sub-hilar pulmonary infiltration/atelectasis. Interval new finding. 2. Mild cardiomegaly. Mild bilateral perihilar pulmonary congestion. Interval stable. 3. A recent CT abdomen and pelvis showed right mild pleural effusion. Electronically signed by Zay Lamb 04-16-2024 02:46 AM Abdomen/Pelvis CT 04/15/24 23:58 EXAM: CT abd pelvis IV con only CLINICAL HISTORY: None TECHNIQUE: Contiguous axial images were obtained from the level of the diaphragm to the pubic symphysis with intravenous contrast. Coronal and sagittal reconstructions were likewise performed and indicated to increase the sensitivity for detecting clinically relevant pathology. If IV contrast material had not been administered, the likelihood of detecting abnormalities relevant to the patient's condition would have been substantially decreased. CT scan was performed according to ALARA (as low as reasonable achievable). COMPARISON: august 14 FINDINGS: Mild right sided pleural effusion with passive subsegmental collapse of lower lobe. The liver appears mildly smaller in size and shows heterogeneous parenchyma with irregular contour. The portal vein appears dilated and multiple collaterals are noted involving peripancreatic region at the gastric cardia and perisplenic region. The spleen appears enlarged measuring up to 26 cm. Mild fat stranding/congestion is noted involving root of mesentery in right paracolic region. Mesentric congestion seen. There is no intra or extrahepatic biliary ductal dilatation. Hepatic vasculature is patent. The gallbladder is present. The pancreas, and adrenal glands are unremarkable. The kidneys are normal in size and attenuation. There is no hydronephrosis or perinephric fat stranding. No renal calculi or renal masses are identified. The ureters are normal in caliber and no ureteral calculi are seen. The bladder is normal in contour. Pelvic viscera are unremarkable. No focal or diffuse bowel wall thickening or evidence of bowel obstruction is identified. No evidence of inflamed appendix. Abdominal and pelvic vasculature is patent. No adenopathy or fluid collections are seen. Few prominent jejunal loops seen in upper and mid abdomen. No evidence of obstruction. No aggressive appearing osseous lesions are identified. IMPRESSION: Mild right sided pleural effusion with passive subsegmental collapse of lower lobe.-stable. The liver appears mildly smaller in size and shows heterogeneous parenchyma with irregular contour.- suggest cirrhosis of liver.-stable. The portal vein appears dilated and multiple collaterals are noted involving peripancreatic region at the gastric cardia and at the splenic hilum . - suggest portal hypertension.-stable. Gross splenomegaly. Mild fat stranding/congestion is noted involving root of mesentery in right paracolic region.-stable. Electronically signed by Naeem John 04-16-2024 03:12 AM Medications Administered Mag sulfate 1g IV Piperacillin/tazobactam 4.5g IV KCl 10 mEq NSS 1L total Code Status & VTE Plan Code Status Full VTE Prophylaxis Plan VTE Prophylaxis will be ordered: Yes Supervising Physician Co-Signing Physician Notes Patient seen and examined, chart reviewed, case discussed with GLEN Lyn and I agree with the assessment and plan as above. In brief, patient with h/o HCV, Cirrhosis, portal vein thrombosis on Coumadin and esophageal varices as well as right breast mass concerning for malignancy, recent admission for GBS bacteremia returns feeling ill - main complaint is left shoulder pain/joint pain as well as fever and head pressure. She has a very small wound on her left buttock with pus expressed by ER team. Otherwise, no clear evidence of infection History obtained with assistance of Peruvian electronic warfare operator On exam she is ill in appearance Small wound on left buttock - no crepitus, bullae, fluctuance HEENT - MMM, neck supple Heart - +S1/S2, regular, no m/r/g Lungs - CTA Abd - soft, NT/ND Ext - tenderness with palpation of left shoulder Assessment/Plan Recent admission for GBS bacteremia likely from LE wound. Blood cultures from 03/31/23 POSITIVE for Strep agalactiae. Repeat cultures on 04/01/24 were NEGATIVE. Patient completed her antibiotics. Returns with fever, joint pain Concern for return of infection Consider post-streptococcal arthritis -Follow cultures -Resume antibiotics Cefepime and Dapto -Pain management - Tylenol PRN, would be higher risk for NSAID use due to Coumad in/Liver cirrhosis PG Care Time/CCT Total # of Minutes Spent Total Time Spent with Patient: Total time spent is greater than 50% in coordination of care (as documented) at patient's floor/unit and/or counseling patient: Coding Level of Care Code 02893 INT INP/OBS CARE 3/75MIN Diagnoses Fever R50.9 Hypomagnesemia E83.42 Hypokalemia E87.6
[2024-04-16] MEDS ORDERED: GLUCOSE 40% GEL 15 GM TUBE PO PRN ×2 (05:10→07:57)
[2024-04-16] MEDS ORDERED: DEXTROSE 50% 50 ML SYRINGE IV PRN ×2 (05:10→07:57)
[2024-04-16] MEDS ORDERED: GLUCOSE 10 TAB/TUBE PO PRN ×2 (05:10→07:57)
[2024-04-16] MEDS ORDERED: PHARMACY GLYCEMIC MGMT CONSULT PRN (05:10)
[2024-04-16] MEDS ORDERED: GLUCAGON FOR INJ 1 MG VIAL SQ PRN ×2 (05:10→07:57)
[2024-04-16] MEDS ORDERED: CARBOHYDRATES FOR HYPOGLYCEMIA PO PRN ×2 (05:10→07:57)
[2024-04-16] MEDS ORDERED: ONDANSETRON 4 MG OD TAB PO PRN (05:14)
--- NOTE | 2024-04-16 05:52 | XRay Report ---
EXAM: XR shoulder LT min 2V routine CLINICAL HISTORY: LT SHOULDER PAIN TECHNIQUE: X-ray images of the left shoulder were obtained in anteroposterior (AP) and Y-view projections. COMPARISON: No prior studies are available for comparison. FINDINGS: Bone Structure: Bone structure is normal and aligned. No evidence of fracture or dislocation. Humeral head is properly positioned in the glenoid fossa. No osseous lesions or abnormalities identified. Joint Spaces: Acromioclavicular and glenohumeral arthritic changes with marginal osteophytes, narrowing joint spaces,and subtle cystic changes. Bony osteopenia Soft Tissues: Soft tissues appear normal and unremarkable. No soft tissue swelling, calcifications, or foreign bodies noted. Left lung lower zone atelectatic changes IMPRESSION: 1. Acromioclavicular and glenohumeral arthritic changes with marginal osteophytes, narrowing joint spaces,and subtle cystic changes. 2. Osteopenia. Disclaimer: A subtle bone abnormality or fracture may not be readily apparent on X-rays, thus clinical correlation and further imaging including follow-up CT, MRI, or follow-up X-rays are advised as needed. Electronically signed by Zay Lamb 04-16-2024 05:51 AM
[2024-04-16] MEDS: POTASSIUM CHLORIDE CRTAB 20 MEQ TABCR PO STA (06:04)
[2024-04-16] MEDS: MAGNESIUM SULFATE / D5W 1 GM/100 ML BAG IV SCH (06:05)
[2024-04-16] MEDS: CEFEPIME 2000MG 2,000 MG/20 ML SYR IV SCH (06:05)
[2024-04-16] MEDS: DAPTOmycin 325 MG in SYRINGE 0 ML IV SCH (06:12)
[2024-04-16 07:09] LABS: INR 2.5 (0.9-1.1); Prothrombin Time 24.7 Seconds (9.0-12.0)
[2024-04-16] MEDS ORDERED: ACETAMINOPHEN 325 MG TAB PO PRN (07:58)
[2024-04-16] MEDS: INSULIN ASPART PER UNIT CHARGE SC SCH ×2 (08:44→14:12)
[2024-04-16] MEDS: SPIRONOLACTONE 100 MG TAB PO SCH (08:47)
[2024-04-16] MEDS ORDERED: LANTUS PER UNIT CHARGE SC SCH (09:00)
--- NOTE | 2024-04-16 11:29 | Electrocardiogram Report ---
Test Reason : Blood Pressure : */* mmHG Vent. Rate : 91 BPM Atrial Rate : 91 BPM P-R Int : 180 ms QRS Dur : 74 ms QT Int : 374 ms P-R-T Axes : 27 13 5 degrees QTcB Int : 460 ms Normal sinus rhythm Nonspecific T wave abnormality Abnormal ECG When compared with ECG of 31-Mar-2024 00:03, No significant change was found Confirmed by Fam Da Silva ([id number]) on 04/16/2024 11:29:08 AM Referred By: REFERRED SELF Confirmed By: Fam Da Silva
[2024-04-16] MEDS ORDERED: methylPREDNISolone 10 mg/mL (For Ped Dose < 7mg) IV SCH (11:30)
--- NOTE | 2024-04-16 12:26 | Hospitalist Progress Note ---
Date of Service April 16, 2024 Assessment & Plan (1) Fever: Plan: Suspected viral illness. Supportive care. Parenteral steroid therapy (2) Hypomagnesemia: Plan: Parenteral replacement. Serial labs (3) Hypokalemia: Plan: Parenteral and oral replacement. Serial labs (4) T2DM (type 2 diabetes mellitus): Plan: ADA diet. Sliding scale coverage (5) Portal vein thrombosis: Plan: Due to hepatitis C induced cirrhosis. She also has esophageal varices. In my opinion, she should not be on systemic anticoagulation since it is unlikely to resolve the portal vein thrombosis. In addition, if the esophageal varices were to bleed she could be in serious hemodynamic trouble. Warfarin has been discontinued. (6) Cirrhosis of liver not due to alcohol: Plan: Due to hepatitis C. Systemic anticoagulation has been discontinued. She has portal vein thrombosis from the cirrhosis which is unlikely to resolve. Risks of systemic anticoagulation far outweigh any potential benefit Plan Supportive care. IV fluids. Potassium and magnesium replacement. Parenteral steroid therapy. Discontinue systemic anticoagulation. Hopefully home within the next day or 2 Admission and Anticipated Discharge Date Admission Date: April 16, 2024 Subjective Alert and oriented. No distress. She speaks only Namibian and has little understanding of Kiswahili. She does state that her son will be arriving shortly and he is able to speak Kiswahili and he will probably act as a bank accountant. This appears to be a viral illness. Antibiotics have been discontinued. She has a history of hepatitis C and cirrhosis with esophageal varices. Unfortunately she has portal vein thrombosis but in my opinion she should not be on chronic Coumadin therapy for the portal vein thrombosis which is unlikely to resolve. If the esophageal varices were to start bleeding, she could be in serious trouble. Coumadin has been discontinued. She was also started on Lantus on admission. She does not take insulin at home. This has been discontinued. Cefepime and daptomycin have been discontinued. Repeat magnesium and potassium levels are pending. She did receive replacement therapy. She has been started on parenteral Solu-Medrol for symptomatic treatment of her viral symptoms. Review of Systems 2 Review of Systems: The patient does not speak Kiswahili and is unable at this time to answer any questions regarding review of systems Physical Exam 2 Physical Exam: General-alert and oriented x3, no fever HEENT-head atraumatic and normocephalic, pupils equal and reactive to light, extraocular muscles intact Neck-no lymphadenopathy or thyromegaly, trachea midline Chest-clear to auscultation. No rales, wheezing or rhonchi Cardiac-regular rate and rhythm, normal S1 and S2 Abdomen-normal bowel sounds, no hepatosplenomegaly Extremities-no cyanosis, clubbing, or edema Neuro-cranial nerves II through XII intact, motor and sensory function within normal limits, strength symmetrical, no focal deficits Psych-normal affect, normal mood Results & Data Results & Data Vital Signs (Past 12 Hours) Vital Signs Temp Pulse Pulse Resp BP BP Pulse Ox 04/16/24 07:09 79 04/16/24 05:28 37 C 85 18 133/100 92 04/16/24 03:52 84 04/16/24 03:37 83 20 195/99 H 95 04/16/24 02:00 89 19 134/74 91 04/16/24 01:33 89 19 137/69 92 04/16/24 00:49 37.2 C 91 H 19 134/71 94 O2 Del Method 04/16/24 07:09 04/16/24 05:28 Room Air 04/16/24 03:52 04/16/24 03:37 Room Air 04/16/24 02:00 Room Air 04/16/24 01:33 Room Air 04/16/24 00:49 Room Air Laboratory Results 04/16/24 00:05 04/16/24 00:05 PG Care Time/CCT Total # of Minutes Spent Total Time Spent with Patient: Total time spent is greater than 50% in coordination of care (as documented) at patient's floor/unit and/or counseling patient: Coding Level of Care Code 51878 SUB INP/OBS CARE 3/50MIN Diagnoses Fever R50.9 Hypomagnesemia E83.42 Hypokalemia E87.6 T2DM (type 2 diabetes mellitus) E11.9 Portal vein thrombosis I81 Cirrhosis of liver not due to alcohol K74.60
[2024-04-16] MEDS: methylPREDNISolone 40 MG in SYRINGE 0 ML IV SCH (12:39)
[2024-04-16] MEDS ORDERED: WARFARIN SOD 7.5 MG TAB PO SCH (16:00)
[2024-04-16 23:22] VITALS: RESP 16; O2SAT 92
[2024-04-17 06:16] LABS: Hematocrit (blood only) 40.3 % (37.0-47.0); Hemoglobin 13.9 g/dl (12.0-16.0); Mean Corpuscular Hemoglobin 30.8 pg (25.0-34.0); Mean Corpuscular Hgb Conc 34.5 g/dL (32.0-36.0); Mean Corpuscular Volume 89.4 fL (80.0-100.0); Mean Platelet Volume 13.7 fL (9.4-12.4); Platelet Count 31 K/uL (130-400); RDW Coefficient of Variation 14.5 % (11.5-14.5); RDW Standard Deviation 46.9 fL (36.4-46.3); Red Blood Count 4.51 M/uL (4.20-5.40); White Blood Count 3.34 K/ul (4.8-10.8)
[2024-04-17 06:31] LABS: INR 1.9 (0.9-1.1); Prothrombin Time 19.7 Seconds (9.0-12.0)
[2024-04-17 06:42] LABS: BUN Creatinine Ratio 46.9 (10-20); Calcium 7.9 mg/dl (8.6-10.3); Creatinine Clr Calc Pharmacy 227.4 ml/min; Potassium 4.1 mmol/L (3.5-5.1)
[2024-04-17 06:55] VITALS: BP 118/70; TEMP 97.9
--- NOTE | 2024-04-17 11:09 | Discharge Summary ---
Discharge Summary Date of Service April 17, 2024 Principal Dx & Hospital Course #1 = Principal Diagnosis (1) Fever: Resolved. Suspected viral illness present on admission. She also was weak on admission and this has resolved. No further treatment necessary (2) Hypomagnesemia: Corrected with parenteral replacement (3) Hypokalemia: Corrected with parenteral replacement (4) T2DM (type 2 diabetes mellitus): ADA diet. Sliding scale coverage while hospitalized. She will resume her usual diabetic management at discharge (5) Portal vein thrombosis: PCP to consider repeat liver ultrasound to reevaluate history of portal vein thrombosis. In my opinion, she should not be on long-term systemic anticoagulation due to the risk of bleeding from underlying cirrhosis and the esophageal varices. 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 Due to hepatitis C. With associated esophageal varices Plan Home today, April 17. Coumadin has been discontinued. Admission HPI Per Admitting Provider 63-year-old female PMHx cirrhosis secondary to hepatitis C, esophageal varices, PVT on warfarin, T2DM, venous insufficiency, HLD, and known breast mass coming to ED for fever, weakness and stiff joints. Interpreting services used to obtain history. Main complaint at time of visit is severe L shoulder pain. This recent admission 03/31-04/04 for strep bacteremia secondary to L foot cellulitis, completed antibiotics 04/11. No known trauma or injury to the area, but severe pain when touching multiple areas throughout the shoulder. Also complaining of head pressure, and fever of 104.4 F evening prior to arrival. Day of arrival, additional symptoms of weakness, joint stiffness, and headaches develop. Did have left buttock pain as well. Overall able to complete the patient has no chest pain, shortness of breath, or abdominal pain. Please see Dr. Myrick's attestation for adjustments/additions to treatment plan. Discharge Exam General-alert and oriented x3, no fever HEENT-head atraumatic and normocephalic, pupils equal and reactive to light, extraocular muscles intact Neck-no lymphadenopathy or thyromegaly, trachea midline Chest-clear to auscultation. No rales, wheezing or rhonchi Cardiac-regular rate and rhythm, normal S1 and S2 Abdomen-normal bowel sounds, no hepatosplenomegaly Extremities-no cyanosis, clubbing, or edema Neuro-cranial nerves II through XII intact, motor and sensory function within normal limits, strength symmetrical, no focal deficits Psych-normal affect, normal mood Discharge Plan Discharge Items Patient Disposition: Home - Self-Care Reason For Visit: FEVER, ? BACTEREMIA Discharge Diagnosis: Suspected viral illness Activity: Resume your previous activity Non-emergency contact: Primary Care Provider Call non-emergency contact if: your symptoms worsen Follow-up/Referrals: Lucila Dudley, [Primary Care Provider] - Diet: Regular Addtl Attending Provider Instructions: Stop Coumadin (warfarin). All other medications remain the same. Consider outpatient liver ultrasound to reevaluate portal vein Pending Studies at Discharge: No Stand-Alone Forms: My [facility], Smoking Cessation Medications and DC Order Prescriptions: Continued dapagliflozin propanediol [Farxiga] 10 mg tablet 10 mg PO DAILY ondansetron 4 mg tablet,disintegrating 4 mg PO TID PRN (Reason: n/v) Qty: 20 0RF spironolactone 1 tab PO DAILY Rx Instructions: unknown dose per son Discontinued warfarin 5 mg tablet See Rx Instructions PO QPM Qty: 140 1RF Rx Instructions: 7.5mg daily per [facility] orally daily in the evening; Discharge Orders: Discharge Order (Routine); Ordered 04/17/24 Ordered By: Igor Callaway Admission Data Admit Date/Time: 04/16/24 04:44 Attending Provider: Igor Callaway Admit Provider: Rosa Maria Myrick Primary Care Provider: Lucila Dudley Other Providers: Rosa Maria Myrick Hospital Stay Data Consultations 04/16/24 03:52 ED Decision to Admit Stat Diagnostic Imagining Performed 04/15/24 23:58 CT Abd and Pelvis [CT abd pelvis IV con only] Stat Pending Results Patient Have Any Pending Studies at Discharge: No Discharge Instructions Given to Patient (Per Discharging Provider) Stop Coumadin (warfarin). All other medications remain the same. Consider outpatient liver ultrasound to reevaluate portal vein Total Time Total Time Spent Total Time Spent (In Minutes): 45 minutes Coding Level of Care Code 59893 INP/OBS DISCH >30 MIN Diagnoses Fever R50.9 Hypomagnesemia E83.42 Hypokalemia E87.6 T2DM (type 2 diabetes mellitus) E11.9 Portal vein thrombosis I81 Cirrhosis of liver not due to alcohol K74.60
[2024-04-17 11:21] VITALS: PULSE 85
== END 2024-04-17 13:55 | disposition home or self-care (01) | DRG 866 ==
LOC: ED 23:18 → SUATTDRO 04-16 04:44 → EDINP 04-16 04:44 → 3N 04-16 05:07

== ENCOUNTER 2024-04-29 21:43 | Inpatient (IN) ==
--- OUTSIDE RECORDS SUMMARY | 2024-04-29 21:49 | External Medical Summary | Continuity of Care Document ---
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 Immunizations Given and Recorded Vaccine Date Status Refusal Reason hepatitis B adult vaccine 07/11/20 Given Medications Farxiga 10 mg oral tablet Start: 01/30/24 3:36:00 PM EST, 1 tab, PO, Daily, Disp# 30 tab, Refills: 3, Pharmacy: [facility] #[id number] Start Date: 01/30/24 Status: Ordered furosemide 40 mg oral tablet Start: 09/28/21 12:05:00 PM EDT, 1 tab, PO, Daily, Disp# 30 tab, Refills: 2, Pharmacy: [facility] #[id number] Start Date: 09/28/21 Stop Date: 12/27/21 Status: Ordered nadolol 20 mg oral tablet Start: 04/22/24 10:36:00 AM EST, 1 tab, PO, Daily, Disp# 30 tab, Refills: 5, Pharmacy: [facility]/pharmacy #[id number] Start Date: 04/22/24 Stop Date: 10/19/24 Status: Ordered Neurontin 400 mg oral capsule Start: 04/23/24 8:34:00 AM EST, 1 cap, PO, tid, Disp# 90 cap, Refills: 5, Pharmacy: [facility]/pharmacy #[id number] Start Date: 04/23/24 Stop Date: 10/20/24 Status: Ordered ondansetron 4 mg oral tablet, disintegrating Start: 07/30/23 9:51:00 AM EDT, 1 tab, PO, ONCE, PRN: as needed for nausea/vomiting Start Date: 07/30/23 Status: Ordered One Touch Delica Plus (33G) Lancets Start: 05/05/23 12:16:00 PM EST, See Instructions, Disp# 100 each, Refills: 11, Check glucose once daily PRN, [id number] Start Date: 05/05/23 Status: Ordered One Touch Ultra 2 Glucose Monitor Start: 03/30/21 12:17:00 PM EST, See Instructions, Disp# 1 each, Refills: 0, Check glucose once dailyPRN, Pharmacy: [facility]/pharmacy #[id number] Start Date: 03/30/21 Status: Ordered One Touch Ultra Test Strips 100 ct Start: 07/21/23 9:04:00 AM EDT, See Instructions, Disp# 100 each, Refills: 11, Check glucose once daily PRN, [id number] Start Date: 07/21/23 Status: Ordered pantoprazole 40 mg oral delayed release tablet Start: 07/30/23 9:51:00 AM EDT, 1 tab, PO, Daily Start Date: 07/30/23 Status: Ordered Rybelsus 3 mg oral tablet Start: 01/23/24 2:38:00 PM EDT, 1 tab, PO, Daily, Disp# 30 tab, Daily, take 30-60 min prior to firstmeal of the day, Pharmacy: [facility]/pharmacy #[id number] Start Date: 01/23/24 Status: Ordered simvastatin 20 mg oral tablet Start: 01/23/24 2:39:00 PM EDT, 1 tab, PO, qhs, Disp# 30 tab, Take daily, in the evening, [id number] Start Date: 01/23/24 Status: Ordered spironolactone 100 mg oral tablet Start: 09/25/22 7:56:00 AM EDT, See Instructions, Disp# 30 tab, Refills: 11, TAKE 1 TABLET BY MOUTH EVERY DAY, Pharmacy: [id number] Start Date: 09/25/22 Status: Ordered vitamin E 400 intl units oral capsule Start: 04/17/20 3:05:00 PM EST, 1 cap, PO, Daily, Disp# 100 cap, Refills: 5, [facility]: [id number] Start Date: 04/17/20 Status: Ordered warfarin 2 mg oral tablet Start: 04/07/20 1:46:00 PM EST, 1 tab, PO, Daily Start Date: 04/07/20 Status: Ordered Mental Status 04/23/24 Barriers to Learning one year Language b arrier Mandatory Health Literacy Documentation Yes Health Literacy Communication Barriers N ever Primary Language Cameroonian Problem List Condition Confirmation Course Effective Dates Status H ealth Status Informant Ascites Confirmed Active Back pain Confirmed Active Breast mass Confirmed Active Cirrhosis of liver Confirmed Active Esophageal varices Confirmed Active Gastric ulcer Confirmed Active Elevated cholesterol Confirmed Active Leukopenia Confirmed Active Chronic venous insufficiency Confirmed Active Portal vein thrombosis Confirmed Active 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 pain Primary Care Provider DO Plaza Allison B Subjective Patient is a 63-year-old female who returns today for follow-up. She is Chilean-speaking and speaks limited Cameroonian. We utilized drive thru order taker services for this. We translatedthrough an interpreterwho is code numberis [id number]. Patient reports that she isgabapentin she is tolerating it well without side effects.Shedenies any foot pain but reports foot numbness. She also reportsbeing in the hospital recently for a cellulitis. Objective Physical Exam Pleasant female seated comfortably she has some decreased sensation up to the medial medial malleolus levelof the left foot. 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 Electronic Signature on File Electronically Reviewed/Signed by: Chi Stanford MD Author Signature Dt/Tm:04/23/2024 08:44 AM Triple Valve Tester of Orthopaedics & Rehabilitation and Physical Medicine & Rehabilitation [facility] Patient Care team information Care Team Personnel Name: MD Cherelle, Domingo Iqbal Position: Physician - Gastro Member Role: Lifetime Relationship Address: [address] [place] [address] Name: DO Plaza Allison B Position: Physician - Family Med Member Role: Primary Care Provider Address: [address] [place] [address] [place] Name: GLEN Phan Lynn Position: Physician Cms Expert Exempt - Vasc Surg Member Role: Lifetime Relationship Address: [address] [place] [address] Care Team Related Persons Name: BEAU LAZARO
--- OUTSIDE RECORDS SUMMARY | 2024-04-29 21:49 | External Medical Summary | Continuity of Care Document ---
Author Name Unknown Organization [facility] [address] Address [address] [place], [place] [id number] Care Team Providers Care Back Sizer Name Role Phone Rubia Plaza Primary Care Physician [phone] [facility] [id number] Date(s): 04/26/24 - 04/26/24 [facility] [address] [facility] [address] [place], [place] [phone] Encounter Diagnosis Unspecified cirrhosis of liver(Final) - Discharge Disposition: Home or Self Care Attending Physician: GLEN Branch Kelli Jo Referring Physician: GLEN Branch Kelli Jo Allergies, Adverse Reactions, Alerts Substance Criticality Severity Reaction Reaction Severity Status menthol topical Shortness of breath Active Immunizations Given and Recorded Vaccine Date Status Refusal Reason hepatitis B adult vaccine 07/11/20 Given Medications Farxiga 10 mg oral tablet Start: 01/30/24 3:36:00 PM EST, 1 tab, PO, Daily, Disp# 30 tab, Refills: 3, Pharmacy: [facility] #[id number] Start Date: 01/30/24 Status: Ordered furosemide 40 mg oral tablet Start: 09/28/21 12:05:00 PM EDT, 1 tab, PO, Daily, Disp# 30 tab, Refills: 2, Pharmacy: [facility] #[id number] Start Date: 09/28/21 Stop Date: 12/27/21 Status: Ordered nadolol 20 mg oral tablet Start: 04/22/24 10:36:00 AM EST, 1 tab, PO, Daily, Disp# 30 tab, Refills: 5, Pharmacy: [facility] #[id number] Start Date: 04/22/24 Stop Date: 10/19/24 Status: Ordered Neurontin 400 mg oral capsule Start: 04/23/24 8:34:00 AM EST, 1 cap, PO, tid, Disp# 90 cap, Refills: 5, Pharmacy: [facility]/pharmacy #[id number] Start Date: 04/23/24 Stop Date: 10/20/24 Status: Ordered ondansetron 4 mg oral tablet, disintegrating Start: 07/30/23 9:51:00 AM EDT, 1 tab, PO, ONCE, PRN: as needed for nausea/vomiting Start Date: 07/30/23 Status: Ordered One Touch Delica Plus (33G) Lancets Start: 05/05/23 12:16:00 PM EST, See Instructions, Disp# 100 each, Refills: 11, Check glucose once daily PRN, Pharmacy: [facility]/pharmacy #[id number] Start Date: 05/05/23 Status: Ordered One Touch Ultra 2 Glucose Monitor Start: 03/30/21 12:17:00 PM EST, See Instructions, Disp# 1 each, Refills: 0, Check glucose once dailyPRN, Pharmacy: [facility]/pharmacy #[id number] Start Date: 03/30/21 Status: Ordered One Touch Ultra Test Strips 100 ct Start: 07/21/23 9:04:00 AM EDT, See Instructions, Disp# 100 each, Refills: 11, Check glucose once daily PRN, Pharmacy: [facility]/pharmacy #[id number] Start Date: 07/21/23 Status: Ordered pantoprazole 40 mg oral delayed release tablet Start: 07/30/23 9:51:00 AM EDT, 1 tab, PO, Daily Start Date: 07/30/23 Status: Ordered Rybelsus 3 mg oral tablet Start: 01/23/24 2:38:00 PM EDT, 1 tab, PO, Daily, Disp# 30 tab, Daily, take 30-60 min prior to firstmeal of the day, Pharmacy: [facility]/pharmacy #[id number] Start Date: 01/23/24 Status: Ordered simvastatin 20 mg oral tablet Start: 01/23/24 2:39:00 PM EDT, 1 tab, PO, qhs, Disp# 30 tab, Take daily, in the evening, Pharmacy: [facility]/pharm[facility] #[id number] Start Date: 01/23/24 Status: Ordered spironolactone 100 mg oral tablet Start: 09/25/22 7:56:00 AM EDT, See Instructions, Disp# 30 tab, Refills: 11, TAKE 1 TABLET BY MOUTH EVERY DAY, Pharmacy: [id number] Start Date: 09/25/22 Status: Ordered vitamin E 400 intl units oral capsule Start: 04/17/20 3:05:00 PM EST, 1 cap, PO, Daily, Disp# 100 cap, Refills: 5, Pharmacy: [facility] #[id number] Start Date: 04/17/20 Status: Ordered warfarin 2 mg oral tablet Start: 04/07/20 1:46:00 PM EST, 1 tab, PO, Daily Start Date: 04/07/20 Status: Ordered Problem List Condition Confirmation Course Effective Dates [...] nodule Confirmed Active Hepatitis C Confirmed Active Procedures Procedure Date Related Diagnosis Body Site [...] as ordered. Results Laboratory List Name Date Partial Thromboplastin Time (PTT) 04/26/24 Alpha Fetoprotein (ALPHA FETOPROTEIN) 04/26/24 Basic Metabolic Panel (BASIC METAB PANEL ) 04/26/24 Complete Blood Count (CBC) 04/26/24 Hepatic Function Panel (HEPATIC FUNCT PA JUAN) 04/26/24 Prothrombin Time w/ INR (PROTIME WITH IN R) 04/26/24 Most recent to oldest [Reference Range]: 1 eGFR CKD-EPI [>60 mL/min/1.73 m2] >90 mL /min/1.73 m2 1 (04/26/24 9:47 AM) AFP. [<8.4 ng/mL] 1.9 ng/mL (04/26/24 9:47 AM) Estimated CrCl 228.83 mL/min (04/26/24 10:39 AM) MPV [9.0-12.2 fL] NOT AVAILABLE fL (04/26/24 9:47 AM) RDW [11.5-14.2 %] 15.0 % *HI* (04/26/24 9:47 AM) Anion Gap [5-14 mmol/L] 2 mmol/L *LOW* (04/26/24 9:47 AM) Alb [3.5-5.0 g/dL] 3.3 g/dL *LOW* (04/26/24:47 AM) Alk Phos [38-126 unit/L] 112 unit/L (04/26/2447 AM) ALT [<35 unit/L] 39 unit/L *HI* (04/26/24:47 AM) AST [15-46 unit/L] 36 unit/L (04/26/2447 AM) BUN [7-20 mg/dL] 10 mg/dL (04/26/24:47 AM) Ca [8.4-10.2 mg/dL] 8.4 mg/dL (04/26/24:47 AM) Cl- [96-107 mmol/L] 108 mmol/L *HI* (04/26/24:47 AM) HCO3 [22-30 mmol/L] 25 mmol/L (04/26/24:47 AM) Cret [0.60-1.00 mg/dL] 0.32 mg/dL *LOW* (04/26/24:47 AM) D Bili [0.0-0.6 mg/dL] 0.4 mg/dL (04/26/24:47 AM) Glu [74-106 mg/dL] 209 mg/dL *HI* (04/26/24:47 AM) Hct [35-44 %] 43.9 % (04/26/24:47 AM) Hgb [11.7-15.0 g/dL] 14.5 g/dL (04/26/24:47 AM) INR [0.9-1.1] 1.4 2 *HI* (04/26/24:47 AM) K [3.5-5.1 mmol/L] 3.6 mmol/L (04/26/24:47 AM) MCH [28-33 pg] 31.1 pg (04/26/24:47 AM) MCHC [32-36 g/dL] 33.0 g/dL (04/26/24 9:47 AM) MCV [81-96 fL] 94.2 fL (04/26/2447 AM) Na [137-145 mmol/L] 135 mmol/L *LOW* (04/26/24 9:47 AM) Plts [150-350 K/uL] 31 K/uL *LOW* (04/26/24 9:47 AM) PT [12.0-14.2 seconds] 17.0 seconds *HI* (04/26/24 9:47 AM) PTT [23-35 seconds] 32 seconds (04/26/24 9:49 AM) RBC [3.90-5.00 M/uL] 4.66 M/uL (04/26/24 9:47 AM) T Bili [0.2-1.3 mg/dL] 1.9 mg/dL *HI* (04/26/24 9:47 AM) Prot [6.3-8.2 g/dL] 7.3 g/dL 3 (04/26/24 9:47 AM) WBC [4.0-10.4 K/uL] 3.06 K/uL *LOW* (04/26/24 9:47 AM) 1Result Comment: Testing Performed By: [facility], [address] [place] [address] 2Result Comment: Suggested therapeutic range for low-intensity Coumadin therapy for venous thromboembolism is INR 2.0-3.0 (ex: atrial fibrillation, history of TIA/stroke). For high risk patients, the suggested therapeutic range is INR 2.5-3.5 (ex: mechanical prosthetic valves). Testing Performed By: [facility], [address] [place] [address] 3Result Comment: Testing Performed By: Dept of Pathology [facility] [place], [address] [place] [address] Social History Social History Type Response Smoking Status Never smoked cigaret olga Sex Female Sex Representation Female (finding) Patient Care team information Care Team Personnel Name: MD Cherelle, Domingo Iqbal Position: Physician - Gastro Member Role: Lifetime Relationship Address: [address] [place] [address] [place] Name: DO Plaza Allison B Position: Physician - Family Med Member Role: Primary Care Provider Address: [address] [place] [address] [place] Name: GLEN Phan Lynn Position: Physician Finishing Manager Exempt - Vasc Surg Member Role: Lifetime Relationship Address: [address] [place] [address], [place] [address] [place] Care Team Related Persons Name: BEAU LAZARO
[2024-04-29] MEDS ORDERED: MoRPHine SULFATE 4 MG/ML 1 ML CARP\\VIAL IV PRN (22:07)
--- NOTE | 2024-04-29 22:22 | Emergency Department Note ---
History of Present Illness General Chief complaint: Abdominal Pain Stated complaint: ABD PAIN, AROUND TO BACK, NAUSEA, Time Seen by Provider: 04/29/24 21:58 History of Present Illness Maximum Pain Intensity: 10 This is a 63-year-old female presenting to the emergency department from home through triage for evaluation of 12/31 abdominal pain. Patient family is at bedside and they are translating. Patient's discomfort started yesterday and has increased in severity. The pain is primarily epigastric and left sided. Patient has significant history of cirrhosis, and has had previous episodes where she will retain ascitic fluid. She has not had fevers or chills. She is nauseated without vomiting. No recent travel history or known exposure to disease. She has not taken anything [id number] for symptoms. There is abdominal bloating and tightness. Home Medications Medication Instructions Recorded Confirmed Type dapagliflozin propanediol 10 mg 10 mg PO DAILY 07/26/23 04/30/24 History tablet (Farxiga) ondansetron 4 mg disintegrating 4 mg PO TID PRN n/v #20 tabs 07/29/23 04/30/24 Rx tablet gabapentin 400 mg capsule 400 mg PO TID 04/30/24 04/30/24 History nadolol 20 mg tablet 20 mg PO DAILY 04/30/24 04/30/24 History spironolactone 1 tab PO DAILY 04/30/24 04/30/24 History Allergies Allergy/AdvReac Type Severity Reaction Status Date / Time menthol Allergy Severe Anaphylaxis Verified 04/30/24 01:50 mint Allergy Severe Anaphylaxis Verified 04/30/24 01:50 Past Med/Surg History Problem List Acute generalized abdominal pain (Acute) Hypokalemia (Acute) Hypomagnesemia (Acute) Blister of buttock with infection (Acute) Cirrhosis of liver not due to alcohol Hypokalemia Hypomagnesemia Esophageal varices T2DM (type 2 diabetes mellitus) Lump of right breast Portal vein thrombosis (dx in 2020) currently on warfarin. Abnormal CT of the abdomen (Acute) Pleural effusion, right Pneumonia (Acute) Diarrhea Vertigo Helicobacter pylori gastritis Bacteremia due to group B Streptococcus Morbid obesity with BMI of 40.0-44.9, adult Left leg pain (Acute) Cellulitis of left lower extremity without foot (Acute) Encounter for pre-operative examination Current use of long-term anticoagulation (Chronic) Abnormal LFTs (Acute) UTI (urinary tract infection) (Acute) Rash (Acute) Thrombocytopenia (Acute) Fever (Acute) Disseminated Lyme disease DVT prophylaxis Hip pain Hyponatremia Erythema migrans (Lyme disease) Back pain (Acute) Ascites no longer gets para's , on diurectics Cirrhosis of liver (Acute) Diabetes (Acute) NIDDM Medical History Acute pancreatitis Lyme disease Hx of sepsis Hx of small bowel obstruction Hx of Lyme disease treated, no current issues Hx of hepatitis C dx in [place] in 2019 during a vacation - [facility] patient did have treatment in the past unsure if it was October 2020 or October 2021. Edema bilateral legs, rare Hypothyroidism hx of taking levothyroxine in November 2021 -- no longer takes. Venous stasis dermatitis of both lower extremities Surgical History History of abdominal paracentesis H/O umbilical hernia repair (~01/2020) [place] Family History Mother Gastric cancer Father Stroke Social History Smoking Status: Never smoker Second Hand Exposure: No; Do You Dip or Chew Tobacco: No; Hx Alcohol Use: No Hx Substance Use: No Preferred Language: Malawian Communication Ability: Effective Communication Ability Comment: Limited understanding of Zimbabwean. 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 Feels Safe at Home: Yes Assistive Devices: Walker Review of Systems A total of 10 systems reviewed and were otherwise negative Physical Exam Vital Signs Vital Signs - 24 hr 04/29/24 21:45 04/29/24 22:43 04/29/24 22:44 Temperature 36.7 C Temperature Source Temporal Artery Scan Pulse Rate 91 H 87 92 H Pulse Rate from SpO2 Sensor Respiratory Rate 18 20 Respiratory Effort / Characteristics Non-Labored Respiratory Depth Normal Respiratory Pattern Regular Blood Pressure 146/82 H Blood Pressure Mean 103 Pulse Oximetry 95 90 Oxygen Delivery Method Room Air Room Air Oxygen Flow Rate Sepsis Recent Fever Within 48 Hours No Sepsis New/Unexplained Change in Mental Status N/A Sepsis Action Taken by Nursing No Action Required 04/29/24 23:09 04/30/24 00:12 04/30/24 00:30 Temperature Temperature Source Pulse Rate 89 89 87 Pulse Rate from SpO2 Sensor 86 87 Respiratory Rate 18 15 20 Respiratory Effort / Characteristics Respiratory Depth Respiratory Pattern Blood Pressure 140/60 110/82 109/89 Blood Pressure Mean 86 91 95 Pulse Oximetry 91 91 94 Oxygen Delivery Method Nasal Cannula Nasal Cannula Oxygen Flow Rate 2 2 Sepsis Recent Fever Within 48 Hours Sepsis New/Unexplained Change in Mental Status Sepsis Action Taken by Nursing 04/30/24 01:01 04/30/24 01:01 04/30/24 01:01 Temperature Temperature Source Pulse Rate Pulse Rate from SpO2 Sensor Respiratory Rate Respiratory Effort / Characteristics Respiratory Depth Respiratory Pattern Blood Pressure 116/67 116/67 116/67 Blood Pressure Mean 73 73 73 Pulse Oximetry Oxygen Delivery Method Oxygen Flow Rate Sepsis Recent Fever Within 48 Hours Sepsis New/Unexplained Change in Mental Status Sepsis Action Taken by Nursing 04/30/24 01:09 04/30/24 01:15 04/30/24 01:21 Temperature Temperature Source Pulse Rate 86 86 84 Pulse Rate from SpO2 Sensor 86 86 84 Respiratory Rate 19 19 22 Respiratory Effort / Characteristics Respiratory Depth Respiratory Pattern Blood Pressure Blood Pressure Mean Pulse Oximetry 94 95 95 Oxygen Delivery Method Oxygen Flow Rate Sepsis Recent Fever Within 48 Hours Sepsis New/Unexplained Change in Mental Status Sepsis Action Taken by Nursing 04/30/24 01:24 04/30/24 01:30 04/30/24 01:30 Temperature Temperature Source Pulse Rate 88 Pulse Rate from SpO2 Sensor 87 Respiratory Rate 20 Respiratory Effort / Characteristics Respiratory Depth Respiratory Pattern Blood Pressure 138/68 138/68 Blood Pressure Mean 83 83 Pulse Oximetry 95 Oxygen Delivery Method Oxygen Flow Rate Sepsis Recent Fever Within 48 Hours Sepsis New/Unexplained Change in Mental Status Sepsis Action Taken by Nursing 04/30/24 02:36 04/30/24 02:36 04/30/24 03:53 Temperature Temperature Source Pulse Rate 80 81 76 Pulse Rate from SpO2 Sensor 80 76 Respiratory Rate 21 18 Respiratory Effort / Characteristics Respiratory Depth Respiratory Pattern Blood Pressure 113/62 107/67 Blood Pressure Mean 79 80 Pulse Oximetry 95 98 Oxygen Delivery Method Room Air Oxygen Flow Rate Sepsis Recent Fever Within 48 Hours Sepsis New/Unexplained Change in Mental Status Sepsis Action Taken by Nursing 04/30/24 04:00 Temperature Temperature Source Pulse Rate 77 Pulse Rate from SpO2 Sensor 77 Respiratory Rate 18 Respiratory Effort / Characteristics Respiratory Depth Respiratory Pattern Blood Pressure 110/67 Blood Pressure Mean 81 Pulse Oximetry 96 Oxygen Delivery Method Nasal Cannula Oxygen Flow Rate 2 Sepsis Recent Fever Within 48 Hours Sepsis New/Unexplained Change in Mental Status Sepsis Action Taken by Nursing VITALS: Vitals are noted on the nurse's note and reviewed by myself. Vital signs stable. GENERAL: Well-developed, well-nourished, white female, who appears uncomfortable on arrival. She is most comfortable laying on her left side. HEAD: Normocephalic atraumatic. EARS: External ear normal. External auditory canals clear, tympanic membranes pearly llanos without erythema or effusion bilaterally. EYES: Pupils equal round and reactive to light and accommodation. Conjunctivae without injection, sclerae without icterus. Extraocular movements intact. NOSE: Patent, turbinates without inflammation or discharge. MOUTH: Mucous membranes moist. Tonsils are not enlarged. Pharynx without erythema, blood, or exudate. Uvula midline. Airway patent. NECK: Supple without nuchal rigidity. No lymphadenopathy. No thyromegaly. Cervical spine is nontender. HEART: Regular rate and rhythm without murmurs gallops or rubs. LUNGS: Clear to auscultation bilaterally without wheezes, rales or rhonchi. No retractions or accessory muscle use. ABDOMEN: Positive normal bowel sounds x 4. Soft, with mild diffuse tenderness. Course Administered Medications Discontinued Medications Acetaminophen (Ofirmev) 1,000 mg in 100 mls @ 400 mls/hr IV NOW STA Stop: 04/29/24 22:54 Last Infusion: 04/30/24 01:17 Dose: Infused Documented By: Admin: 04/29/24 22:47 Dose: 400 mls/hr Documented By: ALMITA Sodium Chloride (Nss) 1,000 mls @ 999 mls/hr IV .Q1H1M ONE Stop: 04/30/24 00:11 Last Infusion: 04/30/24 01:17 Dose: Infused Documented By: Admin: 04/29/24 23:54 Dose: 999 mls/hr Documented By: KRISTAN Ketorolac Tromethamine (Ketorolac Tromethamine 15 Mg/Ml Vial) 15 mg IV NOW STA Stop: 04/29/24 22:41 Last Admin: 04/29/24 22:47 Dose: 15 mg Documented By: ALMITA Ketorolac Tromethamine (Ketorolac Tromethamine 15 Mg/Ml Vial) 15 mg IV NOW STA Stop: 04/30/24 04:03 Last Admin: 04/30/24 04:08 Dose: 15 mg Documented By: NISHANT Ondansetron HCl (Ondansetron Inj 2 Mg/Ml 2 Ml Vial) 4 mg IV NOW STA Stop: 04/29/24 22:08 Last Admin: 04/29/24 22:47 Dose: 4 mg Documented By: ALMITA Medical Decision Making Differential Diagnosis Differential diagnosis: Etiologies such as SBP, biliary colic, cholecystitis, hepatitis, pancreatitis, cardiac disease, pancreatitis, gastritis, peptic ulcer disease, appendicitis, cystitis, diverticulitis, mesenteric ischemia, inflammatory bowel disease, ileus, bowel obstruction, testicular/adnexal torsion, aortic pathology, shingles, as well as others were considered Laboratory Data 04/29/24 23:13 04/29/24 22:30 Lab Results 04/29/24 04/29/24 04/29/24 Range/Units 22:30 22:50 23:13 WBC 4.73 L (4.8-10.8) K/ul RBC 4.33 (4.20-5.40) M/uL Hgb 13.6 (12.0-16.0) g/dl Hct 38.9 (37.0-47.0) % MCV 89.8 (80.0-100.0) fL MCH 31.4 (25.0-34.0) pg MCHC 35.0 (32.0-36.0) g/dL RDW Std Deviation 47.8 H (36.4-46.3) fL RDW Coeff of Meg 14.7 H (11.5-14.5) % Plt Count 28 L* (130-400) K/uL Immature Gran % (Auto) 0.2 % Neut % (Auto) 70.0 % Lymph % (Auto) 16.3 % Casey % (Auto) 7.6 % Eos % (Auto) 5.5 % Baso % (Auto) 0.4 % Neut # (Auto) 3.31 (1.40-6.50) K/uL Lymph # (Auto) 0.77 L (1.20-3.40) K/uL Casey # (Auto) 0.36 (0.11-0.59) K/uL Eos # (Auto) 0.26 (0.00-0.50) K/uL Baso # (Auto) 0.02 (0.00-0.20) K/uL Immature Gran # (Auto) 0.01 (0.01-0.20) K/uL Platelet Estimate Decreased L (Normal) PT Cancelled INR Cancelled APTT Cancelled PTT Ratio Cancelled Sodium 137 (136-145) mmol/L Potassium 3.6 (3.5-5.1) mmol/L Chloride 102 (98-107) mmol/L Carbon Dioxide 26 (21-32) mmol/L Anion Gap 9 (3-11) BUN 12 (6-23) mg/dl Creatinine 0.52 L (0.6-1.2) mg/dl Est Cr Clr Drug Dosing 146.8 ml/min eGFR 103.69 BUN/Creatinine Ratio 23.1 H (10-20) Glucose 169 H (70-99(Fasting)) mg/dl Lactate 2.1 H* (0.4-2.0) mmol/L Calcium 8.1 L (8.6-10.3) mg/dl Magnesium 1.8 (1.7-2.4) mg/dl Total Bilirubin 1.8 H (0.2-1.0) mg/dl Direct Bilirubin 0.3 H (0-0.2) mg/dl AST 35 (13-39) U/L ALT 28 (7-52) U/L Alkaline Phosphatase 104 (34-104) U/L Ammonia 58.0 (18-72) umol/L Troponin I High Sens 6.7 (0-14) pg/ml Total Protein 7.3 (6.0-8.3) gm/dl Albumin 3.4 (3.4-5.0) gm/dl Amylase 26 (25-115) U/L Lipase 71 (11-82) U/L Procalcitonin 0.06 (0-0.5) ng/ml Urine Color Urine Appearance (Clear) Urine pH (4.5-7.5) Ur Specific [place] (1.000-1.030) Urine Protein (Negative) Urine Glucose (UA) (Negative) Urine Ketones (Negative) Urine Blood (Negative) Urine Nitrite (Negative) Urine Bilirubin (Negative) Urine Urobilinogen (Negative) Ur Leukocyte Esterase (Negative) Urine WBC (Auto) (0-5) /hpf Urine RBC (Auto) (0-2) /hpf U Hyaline Cast (Auto) (0-2) /lpf U Epithel Cells (Auto) (0-2) /hpf Urine Bacteria (Auto) (None Seen) Urine Opiates Screen (Neg) Ur Methadone, Qual (Neg) Urine Fentanyl Screen (Neg) Urine Barbiturates (Neg) Ur Phencyclidine (PCP) (Neg) U Amphetamin/Meth Scrn (Neg) MDMA (Ecstasy) Screen (Neg) U Benzodiazepines Scrn (Neg) Ur Cocaine Metabolite (Neg) U Marijuana (THC) Screen (Neg) Ethyl Alcohol mg/dL < 10.0 (<10.0) mg/dl Adenovirus (PCR) Not Detected (NotDetected) B. pertussis DNA (PCR) Not Detected (NotDetected) B.parapertussis DNA PCR Not Detected (NotDetected) C. pneumoniae DNA (PCR) Not Detected (NotDetected) Coronavirus OC43 (PCR) Not Detected (NotDetected) Coronavirus HKU1 (PCR) Not Detected (NotDetected) Coronavirus 229E (PCR) Not Detected (NotDetected) SARS-CoV-2 (PCR) Not Detected (NotDetected) Coronavirus NL63 (PCR) Not Detected (NotDetected) Human Metapneumovir PCR Not Detected (NotDetected) Influenza Type A (PCR) Not Detected (NotDetected) Influenza Type B (PCR) Not Detected (NotDetected) M. pneumoniae (PCR) Not Detected (NotDetected) Parainfluenza 1 (PCR) Not Detected (NotDetected) Parainfluenza 2 (PCR) Not Detected (NotDetected) Parainfluenza 3 (PCR) Not Detected (NotDetected) Parainfluenza 4 (PCR) Not Detected (NotDetected) RSV (PCR) Not Detected (NotDetected) Entero/Rhino (PCR) Not Detected (NotDetected) 04/30/24 04/30/24 04/30/24 Range/Units 00:24 00:42 03:42 WBC (4.8-10.8) K/ul RBC (4.20-5.40) M/uL Hgb (12.0-16.0) g/dl Hct (37.0-47.0) % MCV (80.0-100.0) fL MCH (25.0-34.0) pg MCHC (32.0-36.0) g/dL RDW Std Deviation (36.4-46.3) fL RDW Coeff of Meg (11.5-14.5) % Plt Count (130-400) K/uL Immature Gran % (Auto) % Neut % (Auto) % Lymph % (Auto) % Casey % (Auto) % Eos % (Auto) % Baso % (Auto) % Neut # (Auto) (1.40-6.50) K/uL Lymph # (Auto) (1.20-3.40) K/uL Casey # (Auto) (0.11-0.59) K/uL Eos # (Auto) (0.00-0.50) K/uL Baso # (Auto) (0.00-0.20) K/uL Immature Gran # (Auto) (0.01-0.20) K/uL Platelet Estimate (Normal) PT 14.0 H INR 1.3 H APTT 31 PTT Ratio 1.2 Sodium (136-145) mmol/L Potassium (3.5-5.1) mmol/L Chloride (98-107) mmol/L Carbon Dioxide (21-32) mmol/L Anion Gap (3-11) BUN (6-23) mg/dl Creatinine (0.6-1.2) mg/dl Est Cr Clr Drug Dosing ml/min eGFR BUN/Creatinine Ratio (10-20) Glucose (70-99(Fasting)) mg/dl Lactate 1.3 (0.4-2.0) mmol/L Calcium (8.6-10.3) mg/dl Magnesium (1.7-2.4) mg/dl Total Bilirubin (0.2-1.0) mg/dl Direct Bilirubin (0-0.2) mg/dl AST (13-39) U/L ALT (7-52) U/L Alkaline Phosphatase (34-104) U/L Ammonia (18-72) umol/L Troponin I High Sens (0-14) pg/ml Total Protein (6.0-8.3) gm/dl Albumin (3.4-5.0) gm/dl Amylase (25-115) U/L Lipase (11-82) U/L Procalcitonin (0-0.5) ng/ml Urine Color Yellow Urine Appearance Clear (Clear) Urine pH 5.5 (4.5-7.5) Ur Specific [place] > 1.045 H (1.000-1.030) Urine Protein Trace H (Negative) Urine Glucose (UA) 3+ H (Negative) Urine Ketones 3+ H (Negative) Urine Blood Trace H (Negative) Urine Nitrite Negative (Negative) Urine Bilirubin Negative (Negative) Urine Urobilinogen Negative (Negative) Ur Leukocyte Esterase Negative (Negative) Urine WBC (Auto) 21-50 H (0-5) /hpf Urine RBC (Auto) 6-10 H (0-2) /hpf U Hyaline Cast (Auto) 0-2 (0-2) /lpf U Epithel Cells (Auto) 3-5 H (0-2) /hpf Urine Bacteria (Auto) None Seen (None Seen) Urine Opiates Screen Neg (Neg) Ur Methadone, Qual Neg (Neg) Urine Fentanyl Screen Neg (Neg) Urine Barbiturates Neg (Neg) Ur Phencyclidine (PCP) Neg (Neg) U Amphetamin/Meth Scrn Neg (Neg) MDMA (Ecstasy) Screen Neg (Neg) U Benzodiazepines Scrn Neg (Neg) Ur Cocaine Metabolite Neg (Neg) U Marijuana (THC) Screen Neg (Neg) Ethyl Alcohol mg/dL (<10.0) mg/dl Adenovirus (PCR) (NotDetected) B. pertussis DNA (PCR) (NotDetected) B.parapertussis DNA PCR (NotDetected) C. pneumoniae DNA (PCR) (NotDetected) Coronavirus OC43 (PCR) (NotDetected) Coronavirus HKU1 (PCR) (NotDetected) Coronavirus 229E (PCR) (NotDetected) SARS-CoV-2 (PCR) (NotDetected) Coronavirus NL63 (PCR) (NotDetected) Human Metapneumovir PCR (NotDetected) Influenza Type A (PCR) (NotDetected) Influenza Type B (PCR) (NotDetected) M. pneumoniae (PCR) (NotDetected) Parainfluenza 1 (PCR) (NotDetected) Parainfluenza 2 (PCR) (NotDetected) Parainfluenza 3 (PCR) (NotDetected) Parainfluenza 4 (PCR) (NotDetected) RSV (PCR) (NotDetected) Entero/Rhino (PCR) (NotDetected) Imaging Data Radiologist's Impression: Abdomen/Pelvis CT 04/29/24 22:03 Exam(s): CT ABDOMEN + PELVIS Without Contrast EXAM: CT Abdomen and Pelvis Without Intravenous Contrast CLINICAL HISTORY: Abdominal Pain, hx cirrhosis. TECHNIQUE: Axial computed tomography images of the abdomen and pelvis without intravenous contrast. CTDI is 28.28 mGy and DLP is 1380.75 mGy-cm. Automated exposure control was utilized for the study. A dose lowering technique was utilized adhering to the principles of ALARA. COMPARISON: No relevant prior studies available. FINDINGS: Lung bases: Small right pleural effusion. No mass. No consolidation. ABDOMEN: Liver: Cirrhosis. Gallbladder and bile ducts: Unremarkable. No calcified stones. No ductal dilation. Pancreas: Unremarkable. No ductal dilation. Spleen: Marked splenomegaly. Adrenals: Unremarkable. No mass. Kidneys and ureters: Unremarkable. No obstructing stones. No hydronephrosis. Stomach and bowel: Thickening of the ascending colon likely relates to chronic liver disease, however is nonspecific. Diverticulosis. Dilated duodenum and proximal jejunum with fecalization of the duodenum. This is concerning for chronic/low grade obstruction, cannot exclude early acute on chronic obstruction. PELVIS: Appendix: No findings to suggest acute appendicitis. Bladder: Unremarkable. No stones. Reproductive: Question abnormal contour of the uterus likely represents underlying fibroids. The adnexa are within normal limits. ABDOMEN and PELVIS: Intraperitoneal space: Mild ascites. No free air. Bones/joints: No acute fracture. No dislocation. Soft tissues: On the first slices of this study there is a possible mass of right breast. There is a small fat-containing right inguinal hernia. Vasculature: Dilated portal vein measuring 2.0 cm. Varices are present. Mild atherosclerosis. No aortic aneurysm. Lymph nodes: Unremarkable. No enlarged lymph nodes. IMPRESSION: 1. Dilated duodenum and proximal jejunum with fecalization of the duodenum. This is concerning for chronic/low grade obstruction, cannot exclude early acute on chronic obstruction. 2. Cirrhosis. Sequelae of portal hypertension including varices, marked splenomegaly and mild ascites. 3. Dilated portal vein measuring 2.0 cm. Cannot exclude thrombosis on the noncontrasted examination. 4. Thickening of the ascending colon likely relates to chronic liver disease, however is nonspecific. 5. On the first slices of this study there is a possible mass of right breast. Recommend correlation with mammography. 6. There is a small fat-containing right inguinal hernia. 7. Diverticulosis. 8. Small right pleural effusion. Electronically signed by: Abril Rivero MD 04/30/24 00:54 AM Chest X-Ray 04/29/24 22:04 EXAM: XR chest 1V portable CLINICAL HISTORY: Sepsis. TECHNIQUE: An X-ray image of the chest is obtained using an AP projection. COMPARISON: X-ray 04/16/24. FINDINGS: Pulmonary Parenchyma: Bilateral perihilar pulmonary markings with peribronchial cuffing. Inhomogeneous shadowing both subhilar and lower zones medially. No evidence of pleural effusion or pleural thickening. Heart and Mediastinum: Mild cardiomegaly. No mediastinal widening or masses. No hilar or mediastinal lymphadenopathy. Bony Thorax: The bony thorax appears intact without fractures or deformities. Soft Tissues: Soft tissues overlying the chest wall are unremarkable. IMPRESSION: 1. Possible bilateral sub-hilar pulmonary infiltration/atelectasis. 2. Mild cardiomegaly. Mild bilateral perihilar pulmonary congestion. 3. Interval pronounced. Electronically signed by Zay Lamb 04-30-2024 01:05 AM Portal Vein US 04/30/24 01:59 EXAM: US duplex portal hepatic veins CLINICAL HISTORY: ?thrombosis - dilated PV noted on CT image TECHNIQUE: Ultrasound duplex examination of the portal and hepatic veins. COMPARISON: CT dated 04/29/2024 and 04/16/2024 and non available ultrasound dated 05/06/2022. Limited examination due to increased body habitus. FINDINGS: The visualized part of the liver is seen of heterogeneous texture and cirrhotic pattern. The splenic vein is seen dilated with but patent with normal flow. The main portal vein is seen dilated measuring up to 1.5 cm with normal flow. The echogenic area is noted within the main portal vein at the breana hepatis measuring a 2.6 x 1.2 cm with no definite color flow seen within this area of the portal vein. Elevated velocities of the main portal vein measuring up to 36.3 cm/s. The hepatic artery is seen patent with normal peak systolic velocities. Peak stock velocity of the hepatic artery 46 cm/s and the end-diastolic velocity of the hepatic artery is 12 cm/s. Patent right portal vein with normal flow. Patent left portal vein with normal flow. Patent hepatic veins with normal flow seen within. The IVC is seen patent. Small amount of perihepatic free fluid is seen. IMPRESSION: 1. Cirrhotic liver texture. 2. Dilated splenic and portal veins suggest portal hypertension. 3. An echogenic area seen within the main portal vein with no color flow seen within suggesting a nonocclusive/partially recanalized thrombus. 4. Small amount of perihepatic fluid is seen. 5. Please correlate clinically. 6. No interval changes compared to prior CT. Electronically signed by Zay Lamb 04-30-2024 04:38 AM MDM Narrative Physical exam and history were performed. Nursing notes, EMR, and Medication List were personally reviewed. No social concerns were identified as barriers to patients care. Patient appears to have abdominal pain bringing her to the ER. Patient appears quite uncomfortable on presentation. IV access was established and labs were obtained. Patient was hydrated with normal saline. She was offered morphine, but declined. She was given IV Toradol and IV Tylenol for comfort. She was also given IV Zofran. Patient was sent to CT scan for imaging of her abdomen and pelvis. An order was placed for continuous cardiac monitoring. The monitor shows a rate of 84 with normal sinus rhythm. Patient's blood work is as above and was reviewed. She does not have a significant elevated white blood cell count, gross anemia, or significant electrolyte imbalance. Platelet count is quite low at 28. INR is 1.3. Transaminases not diagnostic. Amylase and lipase are normal. Ammonia normal. BioFire negative. Patient has not provided urine at the time of this dictation. Alcohol negative. CT scan was performed and reviewed by myself and radiology. Patient has multiple findings including possible chronic obstructive findings, breast mass, portal blood clot, and ascites. Overall the patient does not appear well for discharge home. Escalation of care is felt to be necessary. Case was discussed with my attending and the on-call hospitalist team. Please see the hospitalist team dictation for further patient course, plan, disposition. The chart was completed utilizing [employer] Speech Voice Recognition Software. Grammatical errors, random word insertions, pronoun errors, and incomplete sentences are an occasional consequence of this system due to software limitations, ambient noise, and hardware issues. Any formal questions or concerns about the content, text, or information contained within the body of this dictation should be directly addressed to the provider for clarification. Impression & Plan Acute generalized abdominal pain, Thrombocytopenia, Cirrhosis of liver, Abnormal CT of the abdomen Discharge Plan Visit Data Chief Complaint: Abdominal Pain Stated Complaint: ABD PAIN, AROUND TO BACK, NAUSEA, ED Provider: Dennis Donald ED Midlevel Provider: Elmer Menendez Discharge Problem: Acute generalized abdominal pain, Thrombocytopenia, Cirrhosis of liver, Abnormal CT of the abdomen Forms Stand Alone Forms: My [facility] [place] [employer] Prescriptions Prescriptions: No Action gabapentin 400 mg capsule 400 mg PO TID nadolol 20 mg tablet 20 mg PO DAILY spironolactone 1 tab PO DAILY Rx Instructions: pt cannot recall the dose and is not verifiable through surescripts dapagliflozin propanediol [Farxiga] 10 mg tablet 10 mg PO DAILY ondansetron 4 mg tablet,disintegrating 4 mg PO TID PRN (Reason: n/v) Qty: 20 0RF Referrals Referrals: Lucila Dudley DO [Primary Care Provider] -
[2024-04-29] MEDS: ACETAMINOPHEN 1,000 MG/100 ML VIAL IV STA (22:47)
[2024-04-29] MEDS: ONDANSETRON INJ 2 MG/ML 2 ML VIAL IV STA (22:47)
[2024-04-29] MEDS: KETOROLAC TROMETHAMINE 15 MG/ML VIAL IV STA (22:47)
[2024-04-29 23:53] LABS: Albumin Level 3.4 gm/dl (3.4-5.0); BUN Creatinine Ratio 23.1 (10-20); Bilirubin Direct 0.3 mg/dl (0-0.2); Bilirubin,Total 1.8 mg/dl (0.2-1.0); Calcium 8.1 mg/dl (8.6-10.3); Creatinine Clr Calc Pharmacy 146.8 ml/min; Magnesium 1.8 mg/dl (1.7-2.4); Potassium 3.6 mmol/L (3.5-5.1); Total Protein 7.3 gm/dl (6.0-8.3); Troponin I High Sensitivity 6.7 pg/ml (0-14)
[2024-04-29] MEDS: SODIUM CHLORIDE 0.9% 1,000 ML IV ONE (23:54)
[2024-04-29 23:57] LABS: Basophils # (auto) 0.02 K/uL (0.00-0.20); Basophils % (auto) 0.4 %; Eosinophils # (auto) 0.26 K/uL (0.00-0.50); Eosinophils % (auto) 5.5 %; Hematocrit (blood only) 38.9 % (37.0-47.0); Hemoglobin 13.6 g/dl (12.0-16.0); Immature Granulocytes # (auto) 0.01 K/uL (0.01-0.20); Immature Granulocytes % (auto) 0.2 %; Lymphocytes # (auto) 0.77 K/uL (1.20-3.40); Lymphocytes % (auto) 16.3 %; Mean Corpuscular Hemoglobin 31.4 pg (25.0-34.0); Mean Corpuscular Volume 89.8 fL (80.0-100.0); Monocytes # (auto) 0.36 K/uL (0.11-0.59); Monocytes % (auto) 7.6 %; Neutrophils # (auto) 3.31 K/uL (1.40-6.50); Platelet Count 28 K/uL (130-400); Platelet Estimate Decreased (Normal); RDW Coefficient of Variation 14.7 % (11.5-14.5); RDW Standard Deviation 47.8 fL (36.4-46.3); Red Blood Count 4.33 M/uL (4.20-5.40); White Blood Count 4.73 K/ul (4.8-10.8)
[2024-04-30 00:02] LABS: Adenovirus PCR Not Detected (NotDetected); Bordetella parapertussis PCR Not Detected (NotDetected); Bordetella pertussis PCR Not Detected (NotDetected); Chlamydia pneumoniae PCR Not Detected (NotDetected); Coronavirus 229E PCR Not Detected (NotDetected); Coronavirus CoV-2 (COVID19)PCR Not Detected (NotDetected); Coronavirus HKU1 PCR Not Detected (NotDetected); Coronavirus NL63 PCR Not Detected (NotDetected); Coronavirus OC43PCR Not Detected (NotDetected); Human Metapneumovirus PCR Not Detected (NotDetected); Influenza A PCR Not Detected (NotDetected); Influenza B PCR Not Detected (NotDetected); Mycoplasma pneumoniae PCR Not Detected (NotDetected); Parainfluenza Virus 1 PCR Not Detected (NotDetected); Parainfluenza Virus 2 PCR Not Detected (NotDetected); Parainfluenza Virus 3 PCR Not Detected (NotDetected); Parainfluenza Virus 4 PCR Not Detected (NotDetected); Respiratory Syncytial VirusPCR Not Detected (NotDetected); Rhinovirus/Enterovirus PCR Not Detected (NotDetected)
--- NOTE | 2024-04-30 00:55 | CT Scan Report ---
Exam(s): CT ABDOMEN + PELVIS Without Contrast EXAM: CT Abdomen and Pelvis Without Intravenous Contrast CLINICAL HISTORY: Abdominal Pain, hx cirrhosis. TECHNIQUE: Axial computed tomography images of the abdomen and pelvis without intravenous contrast. CTDI is 28.28 mGy and DLP is 1380.75 mGy-cm. Automated exposure control was utilized for the study. A dose lowering technique was utilized adhering to the principles of ALARA. COMPARISON: No relevant prior studies available. FINDINGS: Lung bases: Small right pleural effusion. No mass. No consolidation. ABDOMEN: Liver: Cirrhosis. Gallbladder and bile ducts: Unremarkable. No calcified stones. No ductal dilation. Pancreas: Unremarkable. No ductal dilation. Spleen: Marked splenomegaly. Adrenals: Unremarkable. No mass. Kidneys and ureters: Unremarkable. No obstructing stones. No hydronephrosis. Stomach and bowel: Thickening of the ascending colon likely relates to chronic liver disease, however is nonspecific. Diverticulosis. Dilated duodenum and proximal jejunum with fecalization of the duodenum. This is concerning for chronic/low grade obstruction, cannot exclude early acute on chronic obstruction. PELVIS: Appendix: No findings to suggest acute appendicitis. Bladder: Unremarkable. No stones. Reproductive: Question abnormal contour of the uterus likely represents underlying fibroids. The adnexa are within normal limits. ABDOMEN and PELVIS: Intraperitoneal space: Mild ascites. No free air. Bones/joints: No acute fracture. No dislocation. Soft tissues: On the first slices of this study there is a possible mass of right breast. There is a small fat-containing right inguinal hernia. Vasculature: Dilated portal vein measuring 2.0 cm. Varices are present. Mild atherosclerosis. No aortic aneurysm. Lymph nodes: Unremarkable. No enlarged lymph nodes. IMPRESSION: 1. Dilated duodenum and proximal jejunum with fecalization of the duodenum. This is concerning for chronic/low grade obstruction, cannot exclude early acute on chronic obstruction. 2. Cirrhosis. Sequelae of portal hypertension including varices, marked splenomegaly and mild ascites. 3. Dilated portal vein measuring 2.0 cm. Cannot exclude thrombosis on the noncontrasted examination. 4. Thickening of the ascending colon likely relates to chronic liver disease, however is nonspecific. 5. On the first slices of this study there is a possible mass of right breast. Recommend correlation with mammography. 6. There is a small fat-containing right inguinal hernia. 7. Diverticulosis. 8. Small right pleural effusion. Electronically signed by: Abril Rivero MD 04/30/24 00:54 AM
--- NOTE | 2024-04-30 01:06 | XRay Report ---
EXAM: XR chest 1V portable CLINICAL HISTORY: Sepsis. TECHNIQUE: An X-ray image of the chest is obtained using an AP projection. COMPARISON: X-ray 04/16/24. FINDINGS: Pulmonary Parenchyma: Bilateral perihilar pulmonary markings with peribronchial cuffing. Inhomogeneous shadowing both subhilar and lower zones medially. No evidence of pleural effusion or pleural thickening. Heart and Mediastinum: Mild cardiomegaly. No mediastinal widening or masses. No hilar or mediastinal lymphadenopathy. Bony Thorax: The bony thorax appears intact without fractures or deformities. Soft Tissues: Soft tissues overlying the chest wall are unremarkable. IMPRESSION: 1. Possible bilateral sub-hilar pulmonary infiltration/atelectasis. 2. Mild cardiomegaly. Mild bilateral perihilar pulmonary congestion. 3. Interval pronounced. Electronically signed by Zay Lamb 04-30-2024 01:05 AM
[2024-04-30 01:34] LABS: INR 1.3 (0.9-1.1); Partial Thromboplastin Ratio 1.2; Partial Thromboplastin Time 31 Seconds (21-31)
--- NOTE | 2024-04-30 02:25 | History & Physical Report ---
Date of Service April 30, 2024 Assessment & Plan (1) Acute generalized abdominal pain: Plan: 63yo female with history of cirrhosis secondary to HCV presenting with severe, acute abdominal pain. CT as above with possible early obstruction. Dilated portal veins which could suggest PVT. Patient had been on Coumadin for history of portal vein thrombosis but has been off Coumadin since 04/17/24 - plan to further reassess portal vein thrombosis with serial US. -Admit to medical -Abdominal US with doppler ordered to further assess for portal vein thrombosis -KUB in AM to assess for possible obstruction -Clear liquid diet for now -Dilaudid PRN pain -Zofran PRN nausea -Dulcolax PRN constipation (2) Cirrhosis of liver: Plan: Patient's hepatic labs are stable. No encephalopathy. Mild ascites noted on imaging. -Repeat LFTs and INR in AM to assess for decompensation which could be seen in acute PVT -Continue Nadolol 20mg po daily for history of varices -Continue Spironolactone for management of ascites -Protonix 40mg IV daily (3) Esophageal varices: Plan: No bleeding -Continue Nadolol. Patient is uncertain if she is taking this medication. History of varices, would benefit from treatment with BB, goal HR 60bpm. (4) T2DM (type 2 diabetes mellitus): Plan: Chronic -Goal blood sugar 110 - 140 -ISS, CF=20, CR=10 History of Present Illness Chief Complaint: abdominal pain Primary Care Provider: Lucila Dudley DO Inessa Toscano is a pleasant 63yo female presenting with abdominal pain. Interview obtained with assistance from translation services - Cypriot Patient with history of HCV, Cirrhosis with esophageal varices and portal vein thrombosis previously on coumadin therapy presenting with abdominal pain. Yesterday patient developed severe 10/10 abdominal pain - band-like across the upper abdomen, feels like a twisting and pulling pain. She had some epigastric discomfort as well. Patient additionally feels that her abdomen is more full. She denies fever, chills, cough, SOB, vomiting or diarrhea Last BM was today. She is passing flatus Has intermittent nausea Patient was recently admitted to [facility] from 04/16 - 04/17 with fever and diffuse pain. Symptoms though to be secondary to viral illness. 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 Patient's Coumadin was discontinued on discharge 04/17/24 due to increased risk of bleeding from history of varices and cirrhosis. Patient was seen in anticoagulation clinic by Dr. Ray on 04/22/24 who was in communication with RAYMUNDO Pitt PA-C regarding continuation of patient's Coumadin. Decision made to take patient off Coumadin and to follow for recurrence of portal vein thrombosis with serial US q 3 months. She has an appointment for imaging on May 31. Patient has had evidence of PVT present on prior imaging. CT of the Abdomen 07/26/23 revealed nonocclusive thrombus within the main portal vein, left intrahepatic portal vein and the superior mesenteric vein which was not pr eviously seen. She had a repeat CT of the abdomen on 03/30/24 which revealed findings suggestive of stable portal hypertension - patent vasculature. Another CT of the abdomen on 04/15/24 revealed patent vasculature. Allergies Allergy/AdvReac Type Severity Reaction Status Date / Time menthol Allergy Severe Anaphylaxis Verified 04/30/24 01:50 mint Allergy Severe Anaphylaxis Verified 04/30/24 01:50 Home Medications Medication Instructions Recorded Confirmed Type dapagliflozin propanediol 10 mg 10 mg PO DAILY 07/26/23 04/30/24 History tablet (Farxiga) ondansetron 4 mg disintegrating 4 mg PO TID PRN n/v #20 tabs 07/29/23 04/30/24 Rx tablet gabapentin 400 mg capsule 400 mg PO TID 04/30/24 04/30/24 History nadolol 20 mg tablet 20 mg PO DAILY 04/30/24 04/30/24 History spironolactone 1 tab PO DAILY 04/30/24 04/30/24 History Past Med/Surg History Problem List Acute generalized abdominal pain (Acute) Hypokalemia (Acute) Hypomagnesemia (Acute) Blister of buttock with infection (Acute) Cirrhosis of liver not due to alcohol Hypokalemia Hypomagnesemia Esophageal varices T2DM (type 2 diabetes mellitus) Lump of right breast Portal vein thrombosis (dx in 2020) currently on warfarin. Abnormal CT of the abdomen (Acute) Pleural effusion, right Pneumonia (Acute) Diarrhea Vertigo Helicobacter pylori gastritis Bacteremia due to group B Streptococcus Morbid obesity with BMI of 40.0-44.9, adult Left leg pain (Acute) Cellulitis of left lower extremity without foot (Acute) Encounter for pre-operative examination Current use of longterm anticoagulation (Chronic) Abnormal LFTs (Acute) UTI (urinary tract infection) (Acute) Rash (Acute) Thrombocytopenia (Acute) Fever (Acute) Disseminated Lyme disease DVT prophylaxis Hip pain Hyponatremia Erythema migrans (Lyme disease) Back pain (Acute) Ascites no longer gets para's , on diurectics Cirrhosis of liver (Acute) Diabetes (Acute) NIDDM Medical History Acute pancreatitis Lyme disease Hx of sepsis Hx of small bowel obstruction Hx of Lyme disease treated, no current issues Hx of hepatitis C dx in [place] in 2019 during a vacation - [facility] patient did have treatment in the past unsure if it was October 2020 or October 2021. Edema bilateral legs, rare Hypothyroidism hx of taking levothyroxine in November 2021 -- no longer takes. Venous stasis dermatitis of both lower extremities Surgical History History of abdominal paracentesis H/O umbilical hernia repair (~01/2020) [place] Family History Mother Gastric cancer Father Stroke Social History Smoking Status: Never smoker Second Hand Exposure: No; Do You Dip or Chew Tobacco: No; Hx Alcohol Use: No Hx Substance Use: No Preferred Language: Cypriot Communication Ability: Effective Communication Ability Comment: Limited understanding of Canadian. 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 Feels Safe at Home: Yes Assistive Devices: Walker Review of Systems Review of Systems: All systems reviewed & are unremarkable except as noted in HPI & below Physical Exam Physical Exam: General: patient resting comfortably, NAD, non-toxic in appearance, AA&O x 4 Skin: warm, dry, intact, no rashes or lesions HEENT: NC/AT, PERRL, EOMI, anicteric sclera, conjunctiva without injection, external ear normal to inspection and nontender, nares patent, moist mucus membranes, dentition intact, no oropharyngeal lesions, neck supple, trachea midline, no LAD, no thyromegaly, no JVD Heart: +S1/S2, regular, no m/r/g Lungs: equal air entry bilaterally, no rales/rhonchi/wheezes Abd: +BS, soft, mildly distended, tympanic to percussion, diffusely tender to palpation, no masses/organomegaly/ascites Ext: warm, 2+ pulses in UE/LE bilaterally, no clubbing/cyanosis or edema Neuro: nonfocal, patient AA&O x 4, speech intact, no facial droop, moving all extremities on command with equal strength 5/5 Results & Data Results & Data Vital Signs (Past 12 Hours) Vital Signs Temp Pulse Resp BP Pulse Ox O2 Del Method O2 Flow Rate 04/30/24 01:30 138/68 04/30/24 01:30 138/68 04/30/24 01:24 88 20 95 04/30/24 01:21 84 22 95 04/30/24 01:15 86 19 95 04/30/24 01:09 86 19 94 04/30/24 01:01 116/67 04/30/24 01:01 11604/30/24 01:01 04/30/24 00:30 87 20 109/89 94 Nasal Cannula 2 04/30/24 00:12 89 15 110/82 91 Nasal Cannula 2 04/29/24 23:09 89 18 140/60 91 04/29/24 22:44 92 H 20 90 Room Air 04/29/24 22:43 87 04/29/24 21:45 36.7 C 91 H 18 146/82 H 95 Room Air Laboratory Results Laboratory Results WBC 4.73 K/ul (4.8-10.8) L 04/29/24 23:13 RBC 4.33 M/uL (4.20-5.40) 04/29/24 23:13 Hgb 13.6 g/dl (12.0-16.0) 04/29/24 23:13 Hct 38.9 % (37.0-47.0) 04/29/24 23:13 MCV 89.8 fL (80.0-100.0) 04/29/24 23:13 MCH 31.4 pg (25.0-34.0) 04/29/24 23:13 MCHC 35.0 g/dL (32.0-36.0) 04/29/24 23:13 RDW Std Deviation 47.8 fL (36.4-46.3) H 04/29/24 23:13 RDW Coeff of Meg 14.7 % (11.5-14.5) H 04/29/24 23:13 Plt Count 28 K/uL (130-400) L* 04/29/24 23:13 Immature Gran % (Auto) 0.2 % 04/29/24 23:13 Neut % (Auto) 70.0 % 04/29/24 23:13 Lymph % (Auto) 16.3 % 04/29/24 23:13 [place] % (Auto) 7.6 % 04/29/24 23:13 Eos % (Auto) 5.5 % 04/29/24 23:13 Baso % (Auto) 0.4 % 04/29/24 23:13 Neut # (Auto) 3.31 K/uL (1.40-6.50) 04/29/24 23:13 Lymph # (Auto) 0.77 K/uL (1.20-3.40) L 04/29/24 23:13 [place] # (Auto) 0.36 K/uL (0.11-0.59) 04/29/24 23:13 Eos # (Auto) 0.26 K/uL (0.00-0.50) 04/29/24 23:13 Baso # (Auto) 0.02 K/uL (0.00-0.20) 04/29/24 23:13 Immature Gran # (Auto) 0.01 K/uL (0.01-0.20) 04/29/24 23:13 Platelet Estimate Decreased (Normal) L 04/29/24 23:13 PT 14.0 Seconds (9.0-12.0) H 04/30/24 00:24 INR 1.3 (0.9-1.1) H 04/30/24 00:24 APTT 31 Seconds (21-31) 04/30/24 00:24 PTT Ratio 1.2 04/30/24 00:24 Sodium 137 mmol/L (136-145) 04/29/24 22:30 Potassium 3.6 mmol/L (3.5-5.1) 04/29/24 22:30 Chloride 102 mmol/L (98-107) 04/29/24 22:30 Carbon Dioxide 26 mmol/L (21-32) 04/29/24 22:30 Anion Gap 9 (3-11) 04/29/24 22:30 BUN 12 mg/dl (6-23) 04/29/24 22:30 Creatinine 0.52 mg/dl (0.6-1.2) L 04/29/24 22:30 Est Cr Clr Drug Dosing 146.8 ml/min 04/29/24 22:30 eGFR 103.69 04/29/24 22:30 BUN/Creatinine Ratio 23.1 (10-20) H 04/29/24 22:30 Glucose 169 mg/dl (70-99(Fasting)) H 04/29/24 22:30 Lactate 1.3 mmol/L (0.4-2.0) 04/30/24 00:42 Calcium 8.1 mg/dl (8.6-10.3) L 04/29/24 22:30 Magnesium 1.8 mg/dl (1.7-2.4) 04/29/24 22:30 Total Bilirubin 1.8 mg/dl (0.2-1.0) H 04/29/24 22:30 Direct Bilirubin 0.3 mg/dl (0-0.2) H 04/29/24 22:30 AST 35 U/L (13-39) 04/29/24 22:30 ALT 28 U/L (7-52) 04/29/24 22:30 Alkaline Phosphatase 104 U/L (34-104) 04/29/24 22:30 Ammonia 58.0 umol/L (18-72) 04/29/24 22:30 Troponin I High Sens 6.7 pg/ml (0-14) 04/29/24 22:30 Total Protein 7.3 gm/dl (6.0-8.3) 04/29/24 22:30 Albumin 3.4 gm/dl (3.4-5.0) 04/29/24 22:30 Amylase 26 U/L (25-115) 04/29/24 22:30 Lipase 71 U/L (11-82) 04/29/24 22:30 Procalcitonin 0.06 ng/ml (0-0.5) 04/29/24 22:30 Urine Color Yellow 04/30/24 03:42 Urine Appearance Clear (Clear) 04/30/24 03:42 Urine pH 5.5 (4.5-7.5) 04/30/24 03:42 Ur Specific [place] > 1.045 (1.000-1.030) H 04/30/24 03:42 Urine Protein Trace (Negative) H 04/30/24 03:42 Urine Glucose (UA) 3+ (Negative) H 04/30/24 03:42 Urine Ketones 3+ (Negative) H 04/30/24 03:42 Urine Blood Trace (Negative) H 04/30/24 03:42 Urine Nitrite Negative (Negative) 04/30/24 03:42 Urine Bilirubin Negative (Negative) 04/30/24 03:42 Urine Urobilinogen Negative (Negative) 04/30/24 03:42 Ur Leukocyte Esterase Negative (Negative) 04/30/24 03:42 Urine WBC (Auto) 21-50 /hpf (0-5) H 04/30/24 03:42 Urine RBC (Auto) 6-10 /hpf (0-2) H 04/30/24 03:42 U Hyaline Cast (Auto) 0-2 /lpf (0-2) 04/30/24 03:42 U Epithel Cells (Auto) 3-5 /hpf (0-2) H 04/30/24 03:42 Urine Bacteria (Auto) None Seen (None Seen) 04/30/24 03:42 Ethyl Alcohol mg/dL < 10.0 mg/dl (<10.0) 04/29/24 23:13 Adenovirus (PCR) Not Detected (NotDetected) 04/29/24 22:50 B. pertussis DNA (PCR) Not Detected (NotDetected) 04/29/24 22:50 B.parapertussis DNA PCR Not Detected (NotDetected) 04/29/24 22:50 C. pneumoniae DNA (PCR) Not Detected (NotDetected) 04/29/24 22:50 Coronavirus OC43 (PCR) Not Detected (NotDetected) 04/29/24 22:50 Coronavirus HKU1 (PCR) Not Detected (NotDetected) 04/29/24 22:50 Coronavirus 229E (PCR) Not Detected (NotDetected) 04/29/24 22:50 SARS-CoV-2 (PCR) Not Detected (NotDetected) 04/29/24 22:50 Coronavirus NL63 (PCR) Not Detected (NotDetected) 04/29/24 22:50 Human Metapneumovir PCR Not Detected (NotDetected) 04/29/24 22:50 Influenza Type A (PCR) Not Detected (NotDetected) 04/29/24 22:50 Influenza Type B (PCR) Not Detected (NotDetected) 04/29/24 22:50 M. pneumoniae (PCR) Not Detected (NotDetected) 04/29/24 22:50 Parainfluenza 1 (PCR) Not Detected (NotDetected) 04/29/24 22:50 Parainfluenza 2 (PCR) Not Detected (NotDetected) 04/29/24 22:50 Parainfluenza 3 (PCR) Not Detected (NotDetected) 04/29/24 22:50 Parainfluenza 4 (PCR) Not Detected (NotDetected) 04/29/24 22:50 RSV (PCR) Not Detected (NotDetected) 04/29/24 22:50 Entero/Rhino (PCR) Not Detected (NotDetected) 04/29/24 22:50 Impressions Abdomen/Pelvis CT 04/29/24 22:03 Exam(s): CT ABDOMEN + PELVIS Without Contrast EXAM: CT Abdomen and Pelvis Without Intravenous Contrast CLINICAL HISTORY: Abdominal Pain, hx cirrhosis. TECHNIQUE: Axial computed tomography images of the abdomen and pelvis without intravenous contrast. CTDI is 28.28 mGy and DLP is 1380.75 mGy-cm. Automated exposure control was utilized for the study. A dose lowering technique was utilized adhering to the principles of ALARA. COMPARISON: No relevant prior studies available. FINDINGS: Lung bases: Small right pleural effusion. No mass. No consolidation. ABDOMEN: Liver: Cirrhosis. Gallbladder and bile ducts: Unremarkable. No calcified stones. No ductal dilation. Pancreas: Unremarkable. No ductal dilation. Spleen: Marked splenomegaly. Adrenals: Unremarkable. No mass. Kidneys and ureters: Unremarkable. No obstructing stones. No hydronephrosis. Stomach and bowel: Thickening of the ascending colon likely relates to chronic liver disease, however is nonspecific. Diverticulosis. Dilated duodenum and proximal jejunum with fecalization of the duodenum. This is concerning for chronic/low grade obstruction, cannot exclude early acute on chronic obstruction. PELVIS: Appendix: No findings to suggest acute appendicitis. Bladder: Unremarkable. No stones. Reproductive: Question abnormal contour of the uterus likely represents underlying fibroids. The adnexa are within normal limits. ABDOMEN and PELVIS: Intraperitoneal space: Mild ascites. No free air. Bones/joints: No acute fracture. No dislocation. Soft tissues: On the first slices of this study there is a possible mass of right breast. There is a small fat-containing right inguinal hernia. Vasculature: Dilated portal vein measuring 2.0 cm. Varices are present. Mild atherosclerosis. No aortic aneurysm. Lymph nodes: Unremarkable. No enlarged lymph nodes. IMPRESSION: 1. Dilated duodenum and proximal jejunum with fecalization of the duodenum. This is concerning for chronic/low grade obstruction, cannot exclude early acute on chronic obstruction. 2. Cirrhosis. Sequelae of portal hypertension including varices, marked splenomegaly and mild ascites. 3. Dilated portal vein measuring 2.0 cm. Cannot exclude thrombosis on the noncontrasted examination. 4. Thickening of the ascending colon likely relates to chronic liver disease, however is nonspecific. 5. On the first slices of this study there is a possible mass of right breast. Recommend correlation with mammography. 6. There is a small fat-containing right inguinal hernia. 7. Diverticulosis. 8. Small right pleural effusion. Electronically signed by: Abril Rivero MD 04/30/24 00:54 AM Chest X-Ray 04/29/24 22:04 EXAM: XR chest 1V portable CLINICAL HISTORY: Sepsis. TECHNIQUE: An X-ray image of the chest is obtained using an AP projection. COMPARISON: X-ray 04/16/24. FINDINGS: Pulmonary Parenchyma: Bilateral perihilar pulmonary markings with peribronchial cuffing. Inhomogeneous shadowing both subhilar and lower zones medially. No evidence of pleural effusion or pleural thickening. Heart and Mediastinum: Mild cardiomegaly. No mediastinal widening or masses. No hilar or mediastinal lymphadenopathy. Bony Thorax: The bony thorax appears intact without fractures or deformities. Soft Tissues: Soft tissues overlying the chest wall are unremarkable. IMPRESSION: 1. Possible bilateral sub-hilar pulmonary infiltration/atelectasis. 2. Mild cardiomegaly. Mild bilateral perihilar pulmonary congestion. 3. Interval pronounced. Electronically signed by Zay Lamb 04-30-2024 01:05 AM Code Status & VTE Plan VTE Prophylaxis Plan VTE Prophylaxis will be ordered: Yes PG Care Time/CCT Total # of Minutes Spent Total Time Spent with Patient: Total time spent is greater than 50% in coordination of care (as documented) at patient's floor/unit and/or counseling patient: Coding Level of Care Code 66557 INT INP/OBS CARE 3/75MIN Diagnoses Acute generalized abdominal pain R10.84 Cirrhosis of liver K74.60 Esophageal varices I85.00 T2DM (type 2 diabetes mellitus) E11.9
[2024-04-30 04:01] LABS: Appearance Urine Clear (Clear); Bacteria Urine Automated None Seen (None Seen); Bilirubin Urine Negative (Negative); Blood Urine Trace (Negative); Cast Urine Automated 0-2 /lpf (0-2); Color Urine Yellow; Glucose Urine UA 3+ (Negative); Ketones Urine 3+ (Negative); Leukocyte Esterase Urine Negative (Negative); Nitrite Urine Negative (Negative); Protein Urine Trace (Negative); Specific Gravity Urine > 1.045 (1.000-1.030); Urobilinogen Urine Negative (Negative); WBC Urine Automated 21-50 /hpf (0-5); pH Urine 5.5 (4.5-7.5)
[2024-04-30] MEDS: KETOROLAC TROMETHAMINE 15 MG/ML VIAL IV STA (04:08)
[2024-04-30 04:20] LABS: Amphetamines+Metham, Urine Neg (Neg); Barbiturates, Urine Neg (Neg); Benzodiazepine, Urine Neg (Neg); Cocaine, Urine Neg (Neg); Fentanyl, Urine Neg (Neg); MDMA (Ecstacy), Urine Neg (Neg); Marijuana, Urine Neg (Neg); Methadone, Urine Neg (Neg); Opiate, Urine Neg (Neg); Phencyclidine, Urine Neg (Neg)
--- NOTE | 2024-04-30 04:38 | Ultrasound Report ---
EXAM: US duplex portal hepatic veins CLINICAL HISTORY: ?thrombosis - dilated PV noted on CT image TECHNIQUE: Ultrasound duplex examination of the portal and hepatic veins. COMPARISON: CT dated 04/29/2024 and 04/16/2024 and non available ultrasound dated 05/06/2022. Limited examination due to increased body habitus. FINDINGS: The visualized part of the liver is seen of heterogeneous texture and cirrhotic pattern. The splenic vein is seen dilated with but patent with normal flow. The main portal vein is seen dilated measuring up to 1.5 cm with normal flow. The echogenic area is noted within the main portal vein at the breana hepatis measuring a 2.6 x 1.2 cm with no definite color flow seen within this area of the portal vein. Elevated velocities of the main portal vein measuring up to 36.3 cm/s. The hepatic artery is seen patent with normal peak systolic velocities. Peak stock velocity of the hepatic artery 46 cm/s and the end-diastolic velocity of the hepatic artery is 12 cm/s. Patent right portal vein with normal flow. Patent left portal vein with normal flow. Patent hepatic veins with normal flow seen within. The IVC is seen patent. Small amount of perihepatic free fluid is seen. IMPRESSION: 1. Cirrhotic liver texture. 2. Dilated splenic and portal veins suggest portal hypertension. 3. An echogenic area seen within the main portal vein with no color flow seen within suggesting a nonocclusive/partially recanalized thrombus. 4. Small amount of perihepatic fluid is seen. 5. Please correlate clinically. 6. No interval changes compared to prior CT. Electronically signed by Zay Lamb 04-30-2024 04:38 AM
[2024-04-30] MEDS ORDERED: GLUCOSE 40% GEL 15 GM TUBE PO PRN (05:41)
[2024-04-30] MEDS ORDERED: GLUCAGON FOR INJ 1 MG VIAL SQ PRN (05:41)
[2024-04-30] MEDS ORDERED: CARBOHYDRATES FOR HYPOGLYCEMIA PO PRN (05:41)
[2024-04-30] MEDS ORDERED: HYDROmorphone INJ 0.5 MG/0.5 ML SYR IV PRN (05:41)
[2024-04-30] MEDS ORDERED: DEXTROSE 50% 50 ML SYRINGE IV PRN (05:41)
[2024-04-30] MEDS ORDERED: GLUCOSE 10 TAB/TUBE PO PRN (05:41)
[2024-04-30] MEDS ORDERED: bisacodyL 10 MG SUPP PR PRN (05:41)
--- NOTE | 2024-04-30 08:46 | Electrocardiogram Report ---
Test Reason : Blood Pressure : */* mmHG Vent. Rate : 88 BPM Atrial Rate : 88 BPM P-R Int : 174 ms QRS Dur : 88 ms QT Int : 378 ms P-R-T Axes : 35 4 22 degrees QTcB Int : 457 ms Normal sinus rhythm Diffuse Minor Nonspecific T wave abnormality Abnormal ECG When compared with ECG of 15-Apr-2024 23:56, No significant change Confirmed by Philip Aparicio ([id number]) on 04/30/2024 8:45:37 AM Referred By: REFERRED SELF Confirmed By: Philip Aparicio
--- NOTE | 2024-04-30 09:10 | XRay Report ---
KUB HISTORY: possible obstruction COMPARISON STUDY: 04/29/2024 FINDINGS: There is moderate retained stool. There is a residual mildly distended small bowel loop at the right mid abdomen measuring 3.2 cm diameter, improved. No other small bowel or colonic distention seen. No gross free air. IMPRESSION: Mild residual small bowel distention, improved. ACT 112: Negative or not required by law. The above report was generated using voice recognition software. It may contain grammatical, syntax o r spelling errors. Electronically signed by: Gilberto Ayala M.D. 04/30/2024 9:09 AM
--- NOTE | 2024-04-30 09:53 | Gastrointestinal Consultation ---
Date of Consultation April 30, 2024 Assessment & Plan (1) Portal vein thrombosis: Patient with a history of portal vein thrombosis with some involvement of mesenteric vein. She has advanced hepatitis C related cirrhosis. Marked thrombocytopenia with platelets under 30,000. Known esophageal varices grade 2 when checked a year ago. Patient was taken off her Coumadin due to concerns for bleeding which are certainly considerable in this situation , she re-presents to emergency room with some recurrent symptoms. Coumadin has been restarted. INR currently low. Review of CT scans from 08/14 showed portal vein and mesenteric vein thrombosis at that time patient symptomatic. Follow-up CT scan prior to discontinuing Coumadin on 03/30/2024 showed resolution of these changes. Today's examination shows once again nonocclusive portal and mesenteric vein thrombosis. Very very tough situation. Platelets currently under 30,000 patient at considerable risk of bleeding she has known varices at least from year ago which may be bigger. Follow-up labs today still show a low INR however there is no a cidosis. Patient was visited at the bedside and around 1900 hrs. She was sleeping arouses to voice. The abdomen is benign bowel sounds are present no guarding rebound or rigidity. This point I think walking the line between severe bleeding and thrombosis will be difficult. Continue Coumadin. If there is evidence of bleeding or thrombosis may need to modify. Modify could include the introduction of low molecular weight heparin though not without considerable risk. Potentially could be required repeat EGD provide anticoagulation to evaluate risk of bleeding does great grade 2 varices a year ago. (2) Cirrhosis of liver not due to alcohol: Plan -Obtain hepatitis panel, ammonia, follow MELD labs, CBC -Obtain contrast enhanced study to assess portal vein thrombosis. This situation is complicated by the patient's platelet count of 28 and INR of 1.3 couple with her need for anticoagulation. Further recommendations pending results of CT. -This patient needs the care of a poultry dressing worker for her ongoing needs. -Need to clarify home meds/diuretic dosages as well as confirm she's taking Nadolol History of Present Illness Reason for Consultation: Portal venous thrombosis Attending Physician: Igor Callaway MD History of Present Illness Patient is a 63 yo female who presents to the ED with abdominal discomfort. [facility] services were utilized to conduct this evaluation. She notes a history of cirrhosis & Hep C. She is on Coumadin for portal venous thrombosis in the past. She notes that her Coumadin was stopped 2 weeks ago at the request of her teacher's aide. There is documentation from the Coumadin clinic of this as well. MELD 12. Platelets profoundly low. CT from this admission without contrast: IMPRESSION: 1. Dilated duodenum and proximal jejunum with fecalization of the duodenum. This is concerning for chronic/low grade obstruction, cannot exclude early acute on chronic obstruction. 2. Cirrhosis. Sequelae of portal hypertension including varices, marked splenomegaly and mild ascites. 3. Dilated portal vein measuring 2.0 cm. Cannot exclude thrombosis on the noncontrasted examination. 4. Thickening of the ascending colon likely relates to chronic liver disease, however is nonspecific. 5. On the first slices of this study there is a possible mass of right breast. Recommend correlation with mammography. 6. There is a small fat-containing right inguinal hernia. 7. Diverticulosis. 8. Small right pleural effusion. Symptomatically she reports that on 04/30/24 she developed severe abdominal pain/pressure that felt like a twisting feeling. She felt her abdomen was bloating. No jaundice. No GI bleeding. She denies fevers, chills, cough, SOB, vomiting or diarrhea. She does not struggle with constipation. She recently was admitted with fever & diffuse pain but this was reportedly attributed to a viral illness. She notes that her Coumadin was stopped in March around this time due to the risk. Apparently there were plans to follow the portal vein thrombosis serially q 3 months. Her next appointment is in May. She has never seen a poultry dressing worker. Patient was seen in anticoagulation clinic by Dr. Ray on 04/22/24 who was in communication with RAYMUNDO Pitt PA-C regarding continuation of patient's Coumadin. Decision made to take patient off Coumadin and to follow for recurrence of portal vein thrombosis with serial US q 3 months. She has an appointment for imaging on May 31. Patient has had evidence of PVT present on prior imaging. CT of the Abdomen 07/26/23 revealed nonocclusive thrombus within the main portal vein, left intrahepatic portal vein and the superior mesenteric vein which was not previously seen. She had a repeat CT of the abdomen on 03/30/24 which revealed findings suggestive of stable portal hypertension - patent vasculature. Another CT of the abdomen on 04/15/24 revealed patent vasculature. Last EGD in June 2023 with grade 2 varices and duodenal ulcers. Allergies Allergy/AdvReac Type Severity Reaction Status Date / Time menthol Allergy Severe Anaphylaxis Verified 04/30/24 01:50 mint Allergy Severe Anaphylaxis Verified 04/30/24 01:50 Home Medications Medication Instructions Recorded Confirmed Type dapagliflozin propanediol 10 mg 10 mg PO DAILY 07/26/23 04/30/24 History tablet (Farxiga) ondansetron 4 mg disintegrating 4 mg PO TID PRN n/v #20 tabs 07/29/23 04/30/24 Rx tablet gabapentin 400 mg capsule 400 mg PO TID 04/30/24 04/30/24 History nadolol 20 mg tablet 20 mg PO DAILY 04/30/24 04/30/24 History spironolactone 1 tab PO DAILY 04/30/24 04/30/24 History Patient History Medical History Acute pancreatitis Lyme disease Hx of sepsis Hx of small bowel obstruction Hx of Lyme disease treated, no current issues Hx of hepatitis C dx in [place] in 2019 during a vacation - [facility] patient did have treatment in the past unsure if it was October 2020 or October 2021. Edema bilateral legs, rare Hypothyroidism hx of taking levothyroxine in November 2021 -- no longer takes. Venous stasis dermatitis of both lower extremities Surgical History History of abdominal paracentesis H/O umbilical hernia repair (~01/2020) [place] Family History Mother Gastric cancer Father Stroke Social History Smoking Status: Never smoker Second Hand Exposure: No; Do You Dip or Chew Tobacco: No; Hx Alcohol Use: No Hx Substance Use: No Preferred Language: Burundian Communication Ability: Effective Communication Ability Comment: Limited understanding of South Sudanese. 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 Feels Safe at Home: Yes Assistive Devices: None Review of Systems Constitutional: no fever and no chills Respiratory: no cough and no dyspnea Cardiovascular: no chest pain Gastrointestinal: + abdominal pain; no constipation and no diarrhea/loose stools Psychiatric: no problem reported Hematologic / Lymphatic: no unexplained weight loss Physical Exam Constitutional: well developed Respiratory: normal respiratory effort Gastrointestinal (Abdomen): Inspection/Auscultation: + abdomen distended Percussion/Palpation: + abdomen tender Psychiatric: Orientation: alert and oriented x 3 Results & Data Vital Signs (Past 12 Hours) Vital Signs Temp Pulse Resp BP Pulse Ox O2 Del Method O2 Flow Rate 04/30/24 06:30 96/46 L 04/30/24 06:30 96/46 L 04/30/24 06:30 96/46 L 04/30/24 06:30 73 14 96/46 L 96 Nasal Cannula 2 04/30/24 06:15 72 04/30/24 06:00 Nasal Cannula 2 04/30/24 06:00 36.6 C 04/30/24 05:36 74 19 93/46 L 99 Nasal Cannula 2 04/30/24 05:30 77 19 112/68 98 Nasal Cannula 2 04/30/24 05:00 80 15 119/71 97 Nasal Cannula 2 04/30/24 04:30 75 15 120/69 95 Nasal Cannula 2 04/30/24 04:00 77 18 110/67 96 Nasal Cannula 2 04/30/24 03:53 76 18 107/67 98 Nasal Cannula 2 04/30/24 02:36 81 21 113/62 95 04/30/24 02:36 80 04/30/24 01:30 138/68 04/30/24 01:30 138/68 04/30/24 01:24 88 20 95 04/30/24 01:21 84 22 95 04/30/24 01:15 86 19 95 04/30/24 01:09 86 19 94 04/30/24 01:01 11604/30/24 01:01 11604/30/24 01:01 04/30/24 00:30 87 20 109/89 94 Nasal Cannula 2 04/30/24 00:12 89 15 110/82 91 Nasal Cannula 2 04/29/24 23:09 89 18 140/60 91 04/29/24 22:44 92 H 20 90 Room Air 04/29/24 22:43 87 04/29/24 21:45 36.7 C 91 H 18 146/82 H 95 Room Air PG Care Time/CCT Total # of Minutes Spent Total Time Spent with Patient: Total time spent is greater than 50% in coordination of care (as documented) at patient's floor/unit and/or counseling patient: Coding Level of Care Code 01093 IN/OBS CONSULT LVL 4,60M Diagnoses Portal vein thrombosis I81 Cirrhosis of liver not due to alcohol K74.60
[2024-04-30] MEDS: INSULIN ASPART PER UNIT CHARGE SC SCH (10:13)
[2024-04-30] MEDS: GABAPENTIN 400 MG CAP PO SCH (11:13)
[2024-04-30] MEDS: SPIRONOLACTONE 25 MG TAB PO SCH (11:14)
[2024-04-30] MEDS: nadoloL 40 MG TAB PO SCH (11:18)
[2024-04-30] MEDS: PANTOprazole 40 MG/10 ML SYR IV SCH (11:19)
[2024-04-30] MEDS: SODIUM CHLORIDE 0.9% 1,000 ML IV SCH (11:20)
[2024-04-30 11:38] LABS: Hep B Surface Ag with confirm Negative (Negative)
[2024-04-30 11:54] LABS: Hep C Ab Rflx HepCQuant RNA Prelim Positive (Negative)
[2024-04-30] MEDS: OPTIRAY 320 100ml IV ONE (12:11)
--- NOTE | 2024-04-30 12:38 | CT Scan Report ---
ABDOMEN AND PELVIS CT WITH IV AND ORAL CONTRAST CT DOSE: 1504.16 mGy.cm HISTORY: Portal vein thrombus? TECHNIQUE: Multiaxial CT images of the abdomen and pelvis were performed following the IV administrat ion of 90 cc of Optiray and oral contrast. A dose lowering technique was utilized adhering to the pr inciples of ELAINE. COMPARISON STUDY: 04/29/2024 FINDINGS: There is a moderate right pleural effusion with adjacent right lower lobe compressive atele ctasis. ABDOMEN: There is stable nodular liver contour, prominent splenomegaly, and gastroesophageal varices consistent with cirrhosis and portal hypertension. There is trace ascites. There is nonocclusive thro mbus in the portal vein, splenic vein, and superior mesenteric vein. Gallbladder is contracted. Kidneys show no hydronephrosis. Adrenal glands are unremarkable. No abdomi nal aortic aneurysm. Pelvis: Uterus and adnexa are grossly unremarkable. Urinary bladder is nondistended. Small bowel is e dematous due to the trace ascites. No bowel inflammation or obstruction. No free air or abscess. Osseous structures: There is diffuse lumbar degenerative disc disease. IMPRESSION: 1. Nonocclusive thrombus in the portal vein, splenic vein, and superior mesenteric vein. 2. Cirrhosis, portal hypertension, and trace ascites. 3. Otherwise as described. ACT 112: Negative or not required by law. The above report was generated using voice recognition software. It may contain grammatical, syntax o r spelling errors. Electronically signed by: Gilberto Ayala M.D. 04/30/2024 12:35 PM
--- NOTE | 2024-04-30 12:59 | Hospitalist Progress Note ---
Date of Service April 30, 2024 Assessment & Plan (1) Acute generalized abdominal pain: Plan: Epigastric pain probably due to acute gastritis. Improved with addition of Protonix and Carafate. Diet will be advanced as tolerated. (2) Cirrhosis of liver: Plan: Known cirrhosis from hepatitis C with esophageal varices. She has a history of portal vein thrombosis and multiple studies have been done which reviewed reveal a nonocclusive thrombus. However, she is auto anticoagulated and thrombocytopenic and risks of systemic anticoagulation far outweigh any potential benefit in my opinion. GI service has recommended follow-up with a syrup maker which I agree with. She remains on nadolol and spironolactone. (3) Esophageal varices: Plan: No current bleeding. Continue Nadolol. She is auto anticoagulated related to the cirrhosis and systemic anticoagulation should be avoided. (4) T2DM (type 2 diabetes mellitus): Plan: ADA diet. Sliding scale insulin coverage as needed. Plan Hopeful discharge back to home within the next day or 2 Admission and Anticipated Discharge Date Admission Date: April 30, 2024 Subjective Alert and oriented. No distress. She speaks no South African and is Ecuadorean. However she is able to convey to me that her abdominal pain has lessened. Multiple studies reveal nonocclusive thrombus of the portal vein related to her underlying cirrhosis and esophageal varices. She is auto anticoagulated from the cirrhosis and thrombocytopenic. Risks of systemic anticoagulation far outweigh any potential benefits and she is off the Coumadin. GI consult appreciated. She will eventually need to see a syrup maker. She is on Protonix and Carafate therapy. Diet will be advanced as tolerated. Review of Systems 2 Review of Systems: Constitutionalno fever or chills ENTno blurred vision, no double vision, no epistaxis, no sore throat Respiratoryno cough, no wheezing, no shortness of breath Cardiacno palpitations, no chest pain, no syncope GInausea and epigastric discomfort. She denies melena, hematemesis, hematochezia GUno urinary retention, no urinary incontinence, no dysuria, no hematuria Musculoskeletalno joint pain, no muscle tenderness Skinno bruising, no rashes, no pruritus Neurono isolated weakness, no paresthesia, no weakness Psychno depression, no anxiety Physical Exam 2 Physical Exam: General-alert and oriented x3, no fever, no chills HEENT-head atraumatic and normocephalic, pupils equal and reactive to light, extraocular muscles intact Neck-no lymphadenopathy or thyromegaly, trachea midline Chest-clear to auscultation. No rales, wheezing or rhonchi Cardiac-regular rate and rhythm, normal S1 and S2 Abdomen-epigastric tenderness. No masses. No rebound or guarding. Normal bowel sounds Extremities-no cyanosis, clubbing, or edema Neuro-cranial nerves II through XII intact, motor and sensory function within normal limits, strength symmetrical, no focal deficits Psych-normal affect, normal mood Results & Data Results & Data Vital Signs (Past 12 Hours) Vital Signs Temp Pulse Resp BP Pulse Ox O2 Del Method O2 Flow Rate 04/30/24 11:27 72 15 127/70 98 04/30/24 06:30 96/46 L 04/30/24 06:30 96/46 L 04/30/24 06:30 96/46 L 04/30/24 06:30 73 14 96/46 L 96 Nasal Cannula 2 04/30/24 06:15 72 04/30/24 06:00 Nasal Cannula 2 04/30/24 06:00 36.6 C 04/30/24 05:36 74 19 93/46 L 99 Nasal Cannula 2 04/30/24 05:30 77 19 112/68 98 Nasal Cannula 2 04/30/24 05:00 80 15 119/71 97 Nasal Cannula 2 04/30/24 04:30 75 15 120/69 95 Nasal Cannula 2 04/30/24 04:00 77 18 110/67 96 Nasal Cannula 2 04/30/24 03:53 76 18 107/67 98 Nasal Cannula 2 04/30/24 02:36 81 21 113/62 95 04/30/24 02:36 80 04/30/24 01:30 138/68 04/30/24 01:30 138/68 04/30/24 01:24 88 20 95 04/30/24 01:21 84 22 95 04/30/24 01:15 86 19 95 04/30/24 01:09 86 19 94 04/30/24 01:01 116/67 04/30/24 01:01 116/67 04/30/24 01:01 116/67 Laboratory Results 04/29/24 23:13 04/29/24 22:30 PG Care Time/CCT Total # of Minutes Spent Total Time Spent with Patient: Total time spent is greater than 50% in coordination of care (as documented) at patient's floor/unit and/or counseling patient: Coding Level of Care Code 70704 SUB INP/OBS CARE 3/50MIN Diagnoses Acute generalized abdominal pain R10.84 Cirrhosis of liver K74.60 Esophageal varices I85.00 T2DM (type 2 diabetes mellitus) E11.9
[2024-04-30] MEDS: SUCRALFATE 1 GM TAB PO SCH (14:04)
[2024-04-30 15:24] LABS: A calco-baum cmplx NotReported Not Detected (NotDetected); Bact fragilis Not Reported Not Detected (NotDetected); Blood Culture Id Panel See PCR Comment (NotDetected); C auris Not Reported Not Detected (NotDetected); Calbicans Not Reported Not Detected (NotDetected); Candida glabrata Not Reported Not Detected (NotDetected); Candida krusei Not Reported Not Detected (NotDetected); Cneoformans/gatti Not Reported Not Detected (NotDetected); Cparapsilosis Not Reported Not Detected (NotDetected); E cloacae compx Not Reported Not Detected (NotDetected); Efaecalis Not Reported Not Detected (NotDetected); Efaecium Not Reported Not Detected (NotDetected); Enterobacterales Not Reported Not Detected (NotDetected); Escherichia coli Not Reported Not Detected (NotDetected); H influenzae Not Reported Not Detected (NotDetected); K aerogenes Not Reported Not Detected (NotDetected); Koxytoca Not Reported Not Detected (NotDetected); Kpneumoniae grp Not Reported Not Detected (NotDetected); Lmonocyt Not Reported Not Detected (NotDetected); N meningitidis Not Reported Not Detected (NotDetected); P aeruginosa Not Reported Not Detected (NotDetected); Proteus spp Not Reported Not Detected (NotDetected); Salmonella spp Not Reported Not Detected (NotDetected); Staph lugdunensis Not Reported Not Detected (NotDetected); Staph spp. Not Reported Not Detected (NotDetected); Staphaureus Not Reported Not Detected (NotDetected); Staphepi Not Reported Not Detected (NotDetected); Stenmaltophilia Not Reported Not Detected (NotDetected); Strep agal(GrpB) Not Reported Not Detected (NotDetected); Strep pneum Not Reported Not Detected (NotDetected); Strep pyog (GrpA) Not Reported Not Detected (NotDetected); Strep spp Not Reported DETECTED (NotDetected)
[2024-04-30 15:46] LABS: Streptococcus spp DETECTED (NotDetected)
[2024-04-30] MEDS ORDERED: WARFARIN SOD 5 MG TAB PO SCH (16:00)
[2024-04-30 16:12] LABS: INR 1.3 (0.9-1.1); Prothrombin Time 13.5 Seconds (9.0-12.0)
[2024-04-30 16:25] LABS: Calcium 7.7 mg/dl (8.6-10.3); Potassium 3.5 mmol/L (3.5-5.1)
[2024-04-30 16:31] LABS: Creatinine Clr Calc Pharmacy 224.5 ml/min
[2024-04-30] MEDS: HYDROmorphone INJ 0.5 MG/0.5 ML SYR IV PRN (18:36)
[2024-04-30] MEDS: PANTOprazole 40 MG TAB PO SCH (21:18)
[2024-05-01 06:14] LABS: Hematocrit (blood only) 38.4 % (37.0-47.0); Hemoglobin 13.2 g/dl (12.0-16.0); Mean Corpuscular Hemoglobin 31.7 pg (25.0-34.0); Mean Corpuscular Hgb Conc 34.4 g/dL (32.0-36.0); Mean Corpuscular Volume 92.1 fL (80.0-100.0); Mean Platelet Volume 12.6 fL (9.4-12.4); Platelet Count 30 K/uL (130-400); RDW Coefficient of Variation 14.8 % (11.5-14.5); RDW Standard Deviation 49.5 fL (36.4-46.3); Red Blood Count 4.17 M/uL (4.20-5.40); White Blood Count 3.86 K/ul (4.8-10.8)
[2024-05-01 06:23] LABS: Albumin Level 2.5 gm/dl (3.4-5.0); Bilirubin Direct 0.6 mg/dl (0-0.2); Bilirubin,Total 2.4 mg/dl (0.2-1.0); Calcium 7.6 mg/dl (8.6-10.3); Potassium 3.7 mmol/L (3.5-5.1)
[2024-05-01 06:33] LABS: INR 1.3 (0.9-1.1)
[2024-05-01 06:35] LABS: BUN Creatinine Ratio 41.2 (10-20); Creatinine Clr Calc Pharmacy 224.5 ml/min; Total Protein 5.7 gm/dl (6.0-8.3)
[2024-05-01] MEDS: ONDANSETRON INJ 2 MG/ML 2 ML VIAL IV PRN (08:17)
[2024-05-01] MEDS: SODIUM CHLORIDE 0.9% 1,000 ML IV SCH (12:22)
[2024-05-01 12:57] LABS: Hepatitis A Antibody IgM NON-REACTIVE (NON-REACTIVE); Hepatitis B Core Antibody IgM NON-REACTIVE (NON-REACTIVE)
--- NOTE | 2024-05-01 13:40 | Gastroenterology Progress Note ---
Date of Service May 01, 2024 Assessment & Plan (1) Acute generalized abdominal pain: (2) Cirrhosis of liver not due to alcohol: (3) Portal vein thrombosis: Plan: Patient with a history of portal vein thrombosis with some involvement of mesenteric vein. She has advanced hepatitis C related cirrhosis. Marked thrombocytopenia with platelets 30,000 this AM. Known esophageal varices grade 2 when checked a year ago. Patient was taken off her Coumadin due to concerns for bleeding which are certainly considerable in this situation , she re-presents to emergency room with some recurrent symptoms. Coumadin has been restarted. INR currently low. Review of CT scans from 08/14 showed portal vein and mesenteric vein thrombosis at that time patient symptomatic. Follow-up CT scan prior to discontinuing Coumadin on 03/30/2024 showed resolution of these changes. Today's examination shows once again nonocclusive portal and mesenteric vein thrombosis. Platelets currently 30,000 and therefore, she is at considerable risk of bleeding she has known varices at least from year ago which may be bigger. This point I think walking the line between severe bleeding and thrombosis will be difficult. Continue Coumadin. If there is evidence of bleeding or thrombosis may need to modify. Modify could include the introduction of low molecular weight heparin though not without considerable risk. Potentially could be required repeat EGD provide anticoagulation to evaluate risk of bleeding does great grade 2 varices a year ago. (4) Cirrhosis of liver: Plan: This patient needs the care of a ceramics technician for her ongoing needs. (5) Helicobacter pylori gastritis: Plan: Due to abdominal pain and history of H. pylori in July 2023, will check an H. pylori Stool Ag. Admission and Anticipated Discharge Date Admission Date: April 30, 2024 Subjective Evaluation performed with use of interpretive services via phone: She continues to complain of abdominal pain as a twisting pain, 6/10 in intensity, constant, no alleviating factors. She denies any nausea, vomiting, diarrhea, hematemesis, or hematochezia. She has not had any BM's per the patient. Review of Systems Review of Systems: All systems reviewed & are unremarkable except as noted in HPI & below Physical Exam Constitutional: WD/WN, vitals as above Respiratory: normal respiratory effort, lungs clear to auscultation Cardiovascular: RRR, no murmur, no edema Gastrointestinal (Abdomen): Inspection/Auscultation: normal bowel sounds; abdomen not distended and no abdominal edema Percussion/Palpation: + abdomen tender and abdomen soft; no guarding and abdomen not rigid Psychiatric: A+Ox3, euthymic affect Results & Data Results & Data Vital Signs (Past 12 Hours) Vital Signs Temp Pulse Resp BP Pulse Ox O2 Del Method O2 Flow Rate 05/01/24 07:54 36.9 C 73 18 124/70 97 Nasal Cannula 2 PG Care Time/CCT Total # of Minutes Spent Total Time Spent with Patient: Total time spent is greater than 50% in coordination of care (as documented) at patient's floor/unit and/or counseling patient: Coding Level of Care Code 28226 SUB INP/OBS CARE 3/50MIN Diagnoses Acute generalized abdominal pain R10.84 Cirrhosis of liver not due to alcohol K74.60 Portal vein thrombosis I81 Cirrhosis of liver K74.60 Helicobacter pylori gastritis K29.70; B96.81
--- NOTE | 2024-05-01 14:03 | Hospitalist Progress Note ---
Date of Service May 01, 2024 Assessment & Plan (1) Acute generalized abdominal pain: Plan: Epigastric pain probably due to acute gastritis. Improved from admission with addition of Protonix and Carafate but she still has considerable epigastric tenderness today. Appreciate GI consultation and recommendations. No plans for EGD at this time. Diet will be advanced as tolerated. (2) Cirrhosis of liver: Plan: Known cirrhosis from hepatitis C with esophageal varices. She has a history of portal vein thrombosis and multiple studies have been done which reviewed reveal a nonocclusive thrombus. However, she is auto anticoagulated and thrombocytopenic and risks of systemic anticoagulation far outweigh any potential benefit in my opinion. GI service has recommended follow-up with a technology advisor which I agree with. She remains on nadolol and spironolactone. (3) Esophageal varices: Plan: No current bleeding. Continue Nadolol. She is auto anticoagulated related to the cirrhosis and systemic anticoagulation should be avoided. (4) T2DM (type 2 diabetes mellitus): Plan: ADA diet. Sliding scale insulin coverage as needed. Plan Hopeful discharge back to home within the next day or 2 Admission and Anticipated Discharge Date Admission Date: April 30, 2024 Subjective Alert and oriented. She continues to have epigastric discomfort despite Protonix and Carafate. Will continue IV fluids for now. I spoke to her son, Wu, by phone. She cannot go home today. Review of Systems 2 Review of Systems: Constitutionalno fever or chills ENTno blurred vision, no double vision, no epistaxis, no sore throat Respiratoryno cough, no wheezing, no shortness of breath Cardiacno palpitations, no chest pain, no syncope GInausea and epigastric discomfort. She denies melena, hematemesis, hematochezia GUno urinary retention, no urinary incontinence, no dysuria, no hematuria Musculoskeletalno joint pain, no muscle tenderness Skinno bruising, no rashes, no pruritus Neurono isolated weakness, no paresthesia, no weakness Psychno depression, no anxiety Physical Exam 2 Physical Exam: General-alert and oriented x3, no fever, no chills HEENT-head atraumatic and normocephalic, pupils equal and reactive to light, extraocular muscles intact Neck-no lymphadenopathy or thyromegaly, trachea midline Chest-clear to auscultation. No rales, wheezing or rhonchi Cardiac-regular rate and rhythm, normal S1 and S2 Abdomen-epigastric tenderness. No masses. No rebound or guarding. Normal bowel sounds Extremities-no cyanosis, clubbing, or edema Neuro-cranial nerves II through XII intact, motor and sensory function within normal limits, strength symmetrical, no focal deficits Psych-normal affect, normal mood Results & Data Results & Data Vital Signs (Past 12 Hours) Vital Signs Temp Pulse Resp BP Pulse Ox O2 Del Method O2 Flow Rate 05/01/24 07:54 36.9 C 73 18 124/70 97 Nasal Cannula 2 Laboratory Results 05/01/24 05:43 05/01/24 05:43 PG Care Time/CCT Total # of Minutes Spent Total Time Spent with Patient: Total time spent is greater than 50% in coordination of care (as documented) at patient's floor/unit and/or counseling patient: Coding Level of Care Code 28296 SUB INP/OBS CARE 2/35MIN Diagnoses Acute generalized abdominal pain R10.84 Cirrhosis of liver K74.60 Esophageal varices I85.00 T2DM (type 2 diabetes mellitus) E11.9
[2024-05-01] MEDS ORDERED: PROMETHAZINE 12.5 MG/50.5 ML BAG IV PRN (15:07)
[2024-05-01] MEDS: HYDROmorphone INJ 1 MG/ML SYRINGE IV PRN (15:28)
[2024-05-01] MEDS: PROMETHAZINE 12.5 MG/50.5 ML BAG IV STA (15:29)
[2024-05-01] MEDS: POLYETHYLENE (MIRALAX) 17 GM PACK PO ONE (19:30)
[2024-05-01] MEDS: DOCUSATE SODIUM 100 MG CAP PO ONE (19:30)
--- NOTE | 2024-05-01 22:29 | XRay Report ---
Exam(s): XR KUB EXAM: XR Abdomen, 1 View CLINICAL HISTORY: Reason for exam: worsening abd pain - r/o bowel obstruction. TECHNIQUE: Frontal supine view of the abdomen/pelvis. COMPARISON: 04/30/24 FINDINGS: Gastrointestinal tract: Oral contrast within the large bowel. No bowel dilatation to suggest obstruction. Bones/joints: No acute fracture. No dislocation. IMPRESSION: Oral contrast within the large bowel. No bowel dilatation to suggest obstruction. Electronically signed by: Edith Bañuelos M.D. 05/01/24 22:29 PM
[2024-05-01] MEDS: OPTIRAY 320 100ml IV ONE (22:43)
--- NOTE | 2024-05-02 02:43 | CT Scan Report ---
Exam(s): CT ABDOMEN + PELVIS W/WO Contrast IV Amt: 90 ml opti 320 EXAM: CT Abdomen and Pelvis Without and With Intravenous Contrast CLINICAL HISTORY: exac abd pain, r/o progression of portal vein thrombosis vs obstruction. TECHNIQUE: Axial computed tomography images of the abdomen and pelvis without and with intravenous contrast. CTDI is 56.42 mGy and DLP is 2894.64 mGy-cm. Automated exposure control was utilized for the study. A dose lowering technique was utilized adhering to the principles of ALARA. CONTRAST: Patient received 90 ml opti 320 of IV contrast COMPARISON: CT abdomen and pelvis with contrast dated 04/30/2024 FINDINGS: Lung bases: Subsegmental changes noted at the lung bases. Pleural space: Large volume right pleural effusion persists. ABDOMEN: Liver: Markedly abnormal liver with lobular contours again noted. Gallbladder and bile ducts: Unremarkable. No calcified stones. No ductal dilation. Pancreas: Unremarkable. No mass. No ductal dilation. Spleen: Stable splenomegaly. Adrenals: Unremarkable. No mass. Kidneys and ureters: Unremarkable. No solid mass. No obstructing stones. No hydronephrosis. Stomach and bowel: The stomach is hypoenhancing diffusely with diffuse mucosal thickening, more prominent from the previous examination. No evidence for focal high-grade bowel obstruction. The small bowel mucosa is diffusely prominent with similar prominent mesenteric fat stranding and edema. PELVIS: Appendix: The appendix is not clearly delineated. There is no findings to suggest acute appendicitis. Bladder: Unremarkable. No mass. No stones. Reproductive: Unremarkable as visualized. ABDOMEN and PELVIS: Intraperitoneal space: There is interval increase in the ascites when compared to the previous examination. No loculation. No free air. Bones/joints: No acute fracture. No dislocation. Soft tissues: A small right inguinal hernia containing fluid from the intraperitoneal space is again noted. Subcutaneous fat stranding throughout the soft tissues of the abdomen and pelvis is increased from the previous examination. Vasculature: The partially occlusive thrombus in the main portal vein and an segments of the proximal superior mesenteric vein and splenic vein are grossly stable in appearance. Evaluation of the proximal branches of the superior mesenteric vein near the small bowel is limited by extensive respiratory artifact. Recanalized paraumbilical vein, stable. No abdominal aortic aneurysm. Lymph nodes: Unremarkable. No enlarged lymph nodes. IMPRESSION: 1. The partially occlusive thrombus in the main portal vein and an segments of the proximal superior mesenteric vein and splenic vein are grossly stable in appearance. Evaluation of the proximal branches of the superior mesenteric vein near the small bowel is limited by extensive respiratory artifact. Stable distal esophageal and proximal gastric varices, similar. 2. The stomach is hypoenhancing diffusely with diffuse mucosal thickening, more prominent from the previous examination. Developing gastritis may be present. 3. There is interval increase in the ascites when compared to the previous examination. No loculation. 4. No evidence for focal high-grade bowel obstruction. The small bowel mucosa is diffusely prominent with similar prominent mesenteric fat stranding and edema. Favor edema from compromised portal venous return. Infectious enteritis is considered less likely. 5. Large volume right pleural effusion persists. 6. Subcutaneous fat stranding throughout the soft tissues of the abdomen and pelvis is increased from the previous examination. Suspect advancing positive fluid status/anasarca. Electronically signed by: Vickey Frederick MD 05/02/24 02:42 AM
[2024-05-02] MEDS: INSULIN ASPART PER UNIT CHARGE SC SCH (06:18)
[2024-05-02 06:25] LABS: Basophils # (auto) 0.02 K/uL (0.00-0.20); Basophils % (auto) 0.2 %; Eosinophils # (auto) 0.01 K/uL (0.00-0.50); Eosinophils % (auto) 0.1 %; Hematocrit (blood only) 42.9 % (37.0-47.0); Hemoglobin 15.2 g/dl (12.0-16.0); Immature Granulocytes # (auto) 0.03 K/uL (0.01-0.20); Immature Granulocytes % (auto) 0.3 %; Lymphocytes # (auto) 0.66 K/uL (1.20-3.40); Lymphocytes % (auto) 6.8 %; Mean Corpuscular Hemoglobin 31.9 pg (25.0-34.0); Mean Corpuscular Hgb Conc 35.4 g/dL (32.0-36.0); Mean Corpuscular Volume 90.1 fL (80.0-100.0); Mean Platelet Volume 12.7 fL (9.4-12.4); Monocytes # (auto) 0.51 K/uL (0.11-0.59); Monocytes % (auto) 5.3 %; Neutrophils # (auto) 8.47 K/uL (1.40-6.50); Neutrophils % (auto) 87.3 %; Platelet Count 42 K/uL (130-400); RDW Coefficient of Variation 15.2 % (11.5-14.5); RDW Standard Deviation 49.9 fL (36.4-46.3); Red Blood Count 4.76 M/uL (4.20-5.40)
[2024-05-02 07:11] LABS: Albumin Globulin Ratio 0.8 (0.9-2); Albumin Level 2.8 gm/dl (3.4-5.0); BUN Creatinine Ratio 45.2 (10-20); Bilirubin,Total 3.6 mg/dl (0.2-1.0); Calcium 7.9 mg/dl (8.6-10.3); Creatinine Clr Calc Pharmacy 181.7 ml/min; Globulin 3.7 gm/dl (2.5-4.0); Potassium 4.6 mmol/L (3.5-5.1); Total Protein 6.5 gm/dl (6.0-8.3)
[2024-05-02] MEDS: 4.5GM X1 IV STA (10:35)
--- NOTE | 2024-05-02 12:23 | Hospitalist Progress Note ---
Date of Service May 02, 2024 Assessment & Plan (1) Acute generalized abdominal pain: Plan: Epigastric pain probably due to acute gastritis. Most recent EGD done in June 2023 also revealed the presence of duodenal ulcerations. She initially improved from admission but now she is worse again to the point she is requiring intermittent injections of Dilaudid. She had another abdominal pelvic CT scan last night which did not show anything new. Unfortunately, [facility] denied acceptance of this patient in transfer despite the fact this was recommended by our offal roller. He has been notified and will see the patient again tomorrow. The son has been notified by phone. She has no significant oral intake and remains on IV fluids. (2) Cirrhosis of liver: Plan: Known cirrhosis from hepatitis C with esophageal varices. She has a history of portal vein thrombosis and multiple studies have been done which reviewed reveal a nonocclusive thrombus. However, she is auto anticoagulated and thrombocytopenic and risks of systemic anticoagulation far outweigh any potential benefit in my opinion. GI service has recommended follow-up with a boathouse keeper which I agree with. Unfortunately, [facility] has refused to accept this patient in transfer. She remains on nadolol and spironolactone. (3) Esophageal varices: Plan: No current bleeding. Continue Nadolol. She is auto anticoagulated related to the cirrhosis and systemic anticoagulation should be avoided. Most recent EGD done in June 2023 reveals grade 2 varices and she also had evidence of duodenal ulcers (4) T2DM (type 2 diabetes mellitus): Plan: ADA diet. Sliding scale insulin coverage as needed. Plan To be determined Admission and Anticipated Discharge Date Admission Date: April 30, 2024 Subjective The patient continues to have limiting epigastric pain but no overt melena or hematochezia. I spoke to [facility] hospitalist who refused to accept the patient in transfer. I explained this was recommended by our offal roller but to no avail. I messaged Dr. Harris, GI, and asked him to see her again tomorrow. I notified the son by phone. Platelet count has improved slightly to 42,000. Considering she has thrombocytopenia and grade 2 esophageal varices, she should not be on systemic anticoagulation for her nonocclusive portal vein thrombosis in my opinion. She remains on Protonix and Carafate and is requiring frequent doses of Dilaudid for pain control. Review of Systems 2 Review of Systems: Constitutionalno fever or chills. Looks ill ENTno blurred vision, no double vision, no epistaxis, no sore throat Respiratoryno cough, no wheezing, no shortness of breath Cardiacno palpitations, no chest pain, no syncope GInausea and epigastric discomfort. She denies melena, hematemesis, hematochezia GUno urinary retention, no urinary incontinence, no dysuria, no hematuria Musculoskeletalno joint pain, no muscle tenderness Skinno bruising, no rashes, no pruritus Neurono isolated weakness, no paresthesia, no weakness Psychno depression, no anxiety Physical Exam 2 Physical Exam: General-alert and oriented x3, no fever, no chills. She appears ill HEENT-head atraumatic and normocephalic, pupils equal and reactive to light, extraocular muscles intact Neck-no lymphadenopathy or thyromegaly, trachea midline Chest-clear to auscultation. No rales, wheezing or rhonchi Cardiac-regular rate and rhythm, normal S1 and S2 Abdomen-epigastric tenderness. No masses. No rebound tenderness but she is guarding. Normal bowel sounds Extremities-no cyanosis, clubbing, or edema Neuro-cranial nerves II through XII intact, motor and sensory function within normal limits, strength symmetrical, no focal deficits Psych-depressed affect Results & Data Results & Data Vital Signs (Past 12 Hours) Vital Signs Temp Pulse Resp BP Pulse Ox O2 Del Method O2 Flow Rate 05/02/24 07:47 36.9 C 82 18 151/85 H 93 Nasal Cannula 2 Laboratory Results 05/02/24 05:55 05/02/24 05:55 PG Care Time/CCT Total # of Minutes Spent Total Time Spent with Patient: Total time spent is greater than 50% in coordination of care (as documented) at patient's floor/unit and/or counseling patient: Coding Level of Care Code 84665 SUB INP/OBS CARE 3/50MIN Diagnoses Acute generalized abdominal pain R10.84 Cirrhosis of liver K74.60 Esophageal varices I85.00 T2DM (type 2 diabetes mellitus) E11.9
[2024-05-02] MEDS: PIPERACILLIN/TAZOBACTAM 4.5 GM/100 ML BAG IV SCH (14:51)
[2024-05-03 06:40] LABS: Basophils # (auto) 0.05 K/uL (0.00-0.20); Basophils % (auto) 0.3 %; Eosinophils # (auto) 0.05 K/uL (0.00-0.50); Eosinophils % (auto) 0.3 %; Hematocrit (blood only) 39.7 % (37.0-47.0); Hemoglobin 13.8 g/dl (12.0-16.0); Immature Granulocytes # (auto) 0.13 K/uL (0.01-0.20); Immature Granulocytes % (auto) 0.8 %; Lymphocytes # (auto) 1.09 K/uL (1.20-3.40); Lymphocytes % (auto) 6.5 %; Mean Corpuscular Hemoglobin 31.3 pg (25.0-34.0); Mean Corpuscular Hgb Conc 34.8 g/dL (32.0-36.0); Mean Platelet Volume 12.9 fL (9.4-12.4); Monocytes # (auto) 1.42 K/uL (0.11-0.59); Monocytes % (auto) 8.5 %; Neutrophils # (auto) 13.96 K/uL (1.40-6.50); Neutrophils % (auto) 83.6 %; Platelet Count 60 K/uL (130-400); RDW Coefficient of Variation 15.9 % (11.5-14.5); RDW Standard Deviation 50.9 fL (36.4-46.3); Red Blood Count 4.41 M/uL (4.20-5.40)
[2024-05-03 07:04] LABS: Albumin Globulin Ratio 0.8 (0.9-2); Albumin Level 2.6 gm/dl (3.4-5.0); BUN Creatinine Ratio 50.9 (10-20); Bilirubin,Total 4.3 mg/dl (0.2-1.0); Calcium 7.9 mg/dl (8.6-10.3); Creatinine Clr Calc Pharmacy 138.8 ml/min; Globulin 3.4 gm/dl (2.5-4.0); Potassium 4.8 mmol/L (3.5-5.1)
[2024-05-03] MEDS ORDERED: HYDROmorphone INJ 1 MG/ML SYRINGE IV PRN (08:57)
--- NOTE | 2024-05-03 09:18 | Gastroenterology Progress Note ---
Date of Service May 03, 2024 Assessment & Plan (1) Cirrhosis of liver not due to alcohol: (2) Portal vein thrombosis: Plan This patient is a complicated patient with Hep C cirrhosis here with abdominal pain and portal vein thrombus. GI care coordinated with Dr. Harris and Dr. Busch who have advised the plan. Patient's anticoagulation appears to have been stopped over the weekend by a non-GI service. Patient's INR 1.5. Platelets 60 today. No active GI/variceal bleeding. Dr. Busch & Dr. Harris advised restarting Coumadin. I have placed an order for Coumadin 7.5 mg once for today with plans to reassess INR in the AM. Dr. Busch advised repeating a CT to reassess portal vein thrombus and involving hematology. Upon discharge, patient will need routine hepatology care arranged. Pending CT result, may consider EGD on 05/04/24. After re-evaluation this afternoon, we were able to review the CT scan with the radiologist. Findings as follows: 1. Cirrhosis with stigmata of portal venous hypertension redemonstrated including ascites with splenomegaly and prominent abdominal varicosities. 2. Unchanged appearance of the thrombi within the portal, superior mesenteric and splenic veins. 3. No bowel obstruction or pneumoperitoneum. 4. Wall thickening again noted within several loops of small bowel, likely secondary to portal enteropathy. A nonspecific enteritis considered less likely. 5. Moderate right pleural effusion. 6. Indeterminate 2 cm right breast mass. Correlation with mammogram recommended. Will add stat labs to re-evaluation metabolic panel & lactate given severity of reported pain. Admission and Anticipated Discharge Date Admission Date: May 03, 2024 Supervising Physician Co-Signing Physician Notes Patient reevaluated last seen on Friday. Seems to have more abdominal pain today. Her abdomen positive for bowel sounds. Seems to have diffuse pain. Follow-up CT scan with IV contrast showed persistent clot in the portal vein and mesenteric vein there is no obvious progression. There is some small bowel wall thickening which could be related to portal hypertension though also could be related to mesenteric vein thrombosis. Patient is not anticoagulated. There is a concern about bleeding with her coagulopathy and very low platelets and we agree. However we have recommended anticoagulation in this situation based on her past history the resolution of the portal and mesenteric vein with anticoagulation now reoccurrence with associated pain. Patient's white count is up today. She was not acidotic. Will recheck those at this time. We did discuss with the primary service about potential anticoagulation though their concerns are for bleeding. I have recommended they discuss it with hematology who has been consulted. Also they could consider reaching out to hepatology at [facility] and get their recommendations. I did reach out to the patient's son Wu though the phone message went to [employer]. His contact unavailable. No family at the bedside. Subjective Patient is a 63 yo female with portal vein thrombus. Dr. Busch & Dr. Harris have previously advised patient be anticoagulated. She has no signs of active GI bleeding at the present time. Persistent complaints of abdominal pain. WBC count 16,700 today. Patient in pain having difficulty participating with translation services. Review of Systems Gastrointestinal: + abdominal pain Physical Exam Gastrointestinal (Abdomen): Inspection/Auscultation: + abdomen distended Results & Data Results & Data Vital Signs (Past 12 Hours) Vital Signs Temp Pulse Resp BP Pulse Ox O2 Del Method O2 Flow Rate 05/03/24 07:29 36.7 C 76 18 132/76 95 Nasal Cannula 2 PG Care Time/CCT Total # of Minutes Spent Total Time Spent with Patient: Total time spent is greater than 50% in coordination of care (as documented) at patient's floor/unit and/or counseling patient: Coding Level of Care Code 52942 SUB INP/OBS CARE 2/35MIN Diagnoses Cirrhosis of liver not due to alcohol K74.60 Portal vein thrombosis I81
[2024-05-03 10:31] LABS: INR 1.5 (0.9-1.1); Prothrombin Time 15.6 Seconds (9.0-12.0)
[2024-05-03 10:59] LABS: Appearance Urine Turbid (Clear); Bacteria Urine Automated 1+ (None Seen); Bilirubin Urine 1+ (Negative); Blood Urine Trace (Negative); Cast Urine Automated 0-2 /lpf (0-2); Color Urine Orange; Epithelial Cell Urine Auto >20 /hpf (0-2); Glucose Urine UA 2+ (Negative); Ketones Urine Trace (Negative); Leukocyte Esterase Urine 1+ (Negative); Nitrite Urine Positive (Negative); Protein Urine 1+ (Negative); Specific Gravity Urine 1.036 (1.000-1.030); Urobilinogen Urine Negative (Negative); WBC Urine Automated 21-50 /hpf (0-5)
[2024-05-03] MEDS: SODIUM CHLORIDE 0.9% 1,000 ML IV SCH (11:09)
[2024-05-03] MEDS: NovoLIN-N (NPH) PER UNIT CHARGE SQ SCH (11:54)
[2024-05-03] MEDS: WARFARIN SOD 7.5 MG TAB PO ONE (12:46)
[2024-05-03] MEDS: MoRPHine SULFATE 2 MG/ML CARP IV PRN ×2 (13:39→15:55)
[2024-05-03] MEDS: OPTIRAY 320 100ml IV ONE (14:10)
[2024-05-03] MEDS: MoRPHine SULFATE 2 MG/ML CARP IV STA (14:25)
[2024-05-03 14:33] LABS: Hepatitis C Vira RNA (Log) PCR <1.18 NOT DETECTED Log IU/mL (NOT DETECTED); Hepatitis C Viral RNA by PCR <15 NOT DETECTED IU/mL (NOT DETECTED)
--- NOTE | 2024-05-03 15:16 | CT Scan Report ---
ABDOMEN AND PELVIS CT WITH IV AND ORAL CONTRAST CT DOSE: 1575.51 mGy.cm HISTORY: Follow-up study in a patient with acute generalized abdominal pain with reported portal vein thrombus portal vein thrombus TECHNIQUE: Multiaxial CT images of the abdomen and pelvis were performed following the IV administrat ion of 93 cc of Optiray and oral contrast. A dose lowering technique was utilized adhering to the pr inciples of ELAINE. COMPARISON STUDY: CT abdomen and pelvis 05/01/2024, CT abdomen and pelvis 04/30/2024 and 625 FINDINGS: Cardiomegaly. Trace left with moderate pleural effusions. Right lower lobe consolidation/vo lume loss. Mild left basilar atelectasis. No pneumatosis or pneumoperitoneum. The spleen is enlarged measuring up to 20 cm. Unremarkable pancreas and adrenal glands. Unchanged mild gallbladder wall thic kening. Cirrhotic liver. No hepatic mass identified. Thrombi again noted within the portal, splenic a nd superior mesenteric veins without significant change. Abdominal pelvic varicosities with unchanged small to moderate volume of ascites. Atherosclerosis of the aorta. Unchanged retroperitoneal lymph n odes measuring up to 11 mm within the periaortic distributions. Small fat and fluid filled right ingu inal hernia. Unremarkable kidneys without hydronephrosis. Urinary bladder and uterus are unremarkable. Prominent p eriesophageal varicosities. -Focal wall thickening with partial distention. Contrast within the large bowel. Colonic diverticulosis. Several loops of small bowel demonstrates circumferential wall thicke jaqueline in the lower abdomen and pelvis, similar to prior. Mesenteric edema with anasarca. 2 cm mass of the inferior lateral quadrant right breast. IMPRESSION: 1. Cirrhosis with stigmata of portal venous hypertension redemonstrated including ascites with spleno megaly and prominent abdominal varicosities. 2. Unchanged appearance of the thrombi within the portal, superior mesenteric and splenic veins. 3. No bowel obstruction or pneumoperitoneum. 4. Wall thickening again noted within several loops of small bowel, likely secondary to portal entero lonnie. A nonspecific enteritis considered less likely. 5. Moderate right pleural effusion. 6. Indeterminate 2 cm right breast mass. Correlation with mammogram recommended. ACT 112: Negative or not required by law. The above report was generated using voice recognition software. It may contain grammatical, syntax o r spelling errors. Electronically signed by: Tom Houston M.D. 05/03/2024 3:15 PM
[2024-05-03] MEDS ORDERED: HYDROmorphone INJ 0.5 MG/0.5 ML SYR IV PRN (17:00)
[2024-05-03] MEDS ORDERED: ENOXAPARIN 1 MG/KG SQ SCH (17:00)
--- NOTE | 2024-05-03 17:05 | Hospitalist Progress Note ---
Date of Service May 03, 2024 Assessment & Plan (1) Acute generalized abdominal pain: Plan: Epigastric pain probably due to acute gastritis or PUD. Most recent EGD done in June 2023 also revealed the presence of duodenal ulcerations. Isolated portal vein thrombosis, in my experience, does not cause pain like this. Narcotics were switched from Dilaudid to morphine earlier today but have been ineffective and she has been switched back to Dilaudid. She had another abdominal pelvic CT scan last night and again this afternoon, May 03, with no new findings. Unfortunately, [facility] denied acceptance of this patient in transfer. She has no significant oral intake and remains on IV fluids. (2) Cirrhosis of liver: Plan: Known cirrhosis from hepatitis C with esophageal varices. She has a history of portal vein thrombosis and multiple studies have been done which reviewed reveal a nonocclusive thrombus. However, she is auto anticoagulated and thrombocytopenic and risks of chronic oral systemic anticoagulation far outweigh any potential benefit in my opinion. GI service has recommended follow-up with a binder cutter which I agree with. Unfortunately, [facility] has refused to accept this patient in transfer. She remains on nadolol and spironolactone. (3) Esophageal varices: Plan: No current bleeding. Continue Nadolol. She is auto anticoagulated related to the cirrhosis. Most recent EGD done in June 2023 reveals grade 2 varices and she also had evidence of duodenal ulcers. GI service is considering repeat EGD (4) T2DM (type 2 diabetes mellitus): Plan: ADA diet. Sliding scale insulin coverage as needed. Plan To be determined Admission and Anticipated Discharge Date Admission Date: May 03, 2024 Subjective Clinically worse today. Dilaudid was switched to morphine at family request but seems to be relatively ineffective. She is currently moaning in the bed. 2 sons are at the bedside. She has been switched back to as needed Dilaudid. Repeat abdominal CT scan done today, May 03, reveals no new findings. Discussed case with gastroenterology. 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 She has esophageal varices, thrombocytopenia, and auto anticoagulation from the cirrhosis. Unfortunately, there is no treatment option that is risk-free here. Continue Protonix and Carafate treatment. Gastroenterology considering repeat EGD. Review of Systems 2 Review of Systems: Constitutionalno fever or chills. Looks ill. Moaning with epigastric pain radiating through to her back ENTno blurred vision, no double vision, no epistaxis, no sore throat Respiratoryno cough, no wheezing, no shortness of breath Cardiacno palpitations, no chest pain, no syncope GInausea and epigastric discomfort. She denies melena, hematemesis, hematochezia GUno urinary retention, no urinary incontinence, no dysuria, no hematuria Musculoskeletalno joint pain, no muscle tenderness Skinno bruising, no rashes, no pruritus Neurono isolated weakness, no paresthesia Psychno depression, no anxiety Physical Exam 2 Physical Exam: General-moaning and lethargic. No fever. She appears ill HEENT-head atraumatic and normocephalic, pupils equal and reactive to light, extraocular muscles intact Neck-no lymphadenopathy or thyromegaly, trachea midline Chest-clear to auscultation. No rales, wheezing or rhonchi Cardiac-regular rate and rhythm, normal S1 and S2 Abdomen-epigastric tenderness. No masses. No rebound tenderness but she is guarding. Hypoactive bowel sounds but present Extremities-no cyanosis, clubbing, or edema Neuro-cranial nerves II through XII intact, motor and sensory function within normal limits, strength symmetrical with generalized weakness, no focal deficits Psych-cannot currently assess Results & Data Results & Data Vital Signs (Past 12 Hours) Vital Signs Temp Pulse Resp BP Pulse Ox O2 Del Method O2 Flow Rate 05/03/24 09:59 Nasal Cannula 2 05/03/24 07:29 36.7 C 76 18 132/76 95 Nasal Cannula 2 Laboratory Results 05/03/24 06:14 PG Care Time/CCT Total # of Minutes Spent Total Time Spent with Patient: Total time spent is greater than 50% in coordination of care (as documented) at patient's floor/unit and/or counseling patient: Coding Level of Care Code 72938 SUB INP/OBS CARE 3/50MIN Diagnoses Acute generalized abdominal pain R10.84 Cirrhosis of liver K74.60 Esophageal varices I85.00 T2DM (type 2 diabetes mellitus) E11.9
[2024-05-03] MEDS: HYDROmorphone INJ 0.5 MG/0.5 ML SYR IV STA (17:19)
[2024-05-03 17:21] LABS: Albumin Globulin Ratio 0.8 (0.9-2); Albumin Level 2.6 gm/dl (3.4-5.0); BUN Creatinine Ratio 52.4 (10-20); Bilirubin,Total 4.1 mg/dl (0.2-1.0); Creatinine Clr Calc Pharmacy 181.7 ml/min; Globulin 3.3 gm/dl (2.5-4.0); Potassium 4.7 mmol/L (3.5-5.1); Total Protein 5.9 gm/dl (6.0-8.3)
[2024-05-03] MEDS: ENOXAPARIN INJ 120 MG/0.8 ML SYR SQ SCH (17:53)
[2024-05-03] MEDS: INSULIN HUMAN NPH SC SCH (20:06)
[2024-05-03] MEDS: HYDROmorphone INJ 1 MG/ML SYRINGE IV PRN (21:43)
--- NOTE | 2024-05-04 07:50 | Oncology Consultation ---
Date of Consultation May 04, 2024 Assessment & Plan (1) Portal vein thrombosis: currently the patient is anticoagulated with Lovenox 120 mg twice daily which is a therapeutic dose, agree with the choice of anticoagulation. Upon discharge she may be resumed on Coumadin. However we will recommend holding anticoagulation if the platelet count is less than 50,000/mcL or if she is actively bleeding (2) Thrombocytopenia: . Latest platelet count is 69,000, no indications for platelet transfusion. Anticoagulation can be resumed at this point. (3) Leukocytosis: Leukocytosis is reactive due to other medical issues, sepsis. Agree with the management per our hospital internal medicine colleagues. Plan Thank you for this interesting hematological consult. Hematology will continue to follow the patient make appropriate recommendations. History of Present Illness Reason for Consultation: Portal Vein Thrombosis thrombocytopenia leukocytosis with neutrophilia Attending Physician: Shakira Alcaraz MD History of Present Illness The patient is a very pleasent 63-year-old woman who is well-known to me from last year when I saw her for portal vein thrombosis. She does have a history of hepatitis C, cirrhosis, esophageal varices. She has been on Coumadin long-term for anticoagulation regarding her portal vein thrombosis. She was previously on Coumadin till last year which was discontinued on discharge on April 17Jan2024 given the increased risk of bleeding. Subsequently she came to the hospital with increased abdominal pain. She had another CT scan during this time which revealed continued thrombosis in the main portal vein, left intrahepatic portal vein and superior mesenteric vein which were thought to be new as compared to the prior CT scans. I had evaluated her last year for portal vein thrombosis, and after discussion with Manny colleagues in the anticoagulation clinic we had recommended treatment with Coumadin. However as noted above Allergies Allergy/AdvReac Type Severity Reaction Status Date / Time menthol Allergy Severe Anaphylaxis Verified 04/30/24 01:50 mint Allergy Severe Anaphylaxis Verified 04/30/24 01:50 Home Medications Medication Instructions Recorded Confirmed Type dapagliflozin propanediol 10 mg 10 mg PO DAILY 07/26/23 04/30/24 History tablet (Farxiga) ondansetron 4 mg disintegrating 4 mg PO TID PRN n/v #20 tabs 07/29/23 04/30/24 Rx tablet gabapentin 400 mg capsule 400 mg PO TID 04/30/24 04/30/24 History nadolol 20 mg tablet 20 mg PO DAILY 04/30/24 04/30/24 History spironolactone 1 tab PO DAILY 04/30/24 04/30/24 History Patient History Medical History Acute pancreatitis Lyme disease Hx of sepsis Hx of small bowel obstruction Hx of Lyme disease treated, no current issues Hx of hepatitis C dx in [place] in 2019 during a vacation - [facility] states patient did have treatment in the past unsure if it was October 2020 or October 2021. Edema bilateral legs, rare Hypothyroidism hx of taking levothyroxine in November 2021 -- no longer takes. Venous stasis dermatitis of both lower extremities Surgical History History of abdominal paracentesis H/O umbilical hernia repair (~01/2020) [place] Family History Mother Gastric cancer Father Stroke Social History Smoking Status: Never smoker Second Hand Exposure: No; Do You Dip or Chew Tobacco: No; Hx Alcohol Use: No Hx Substance Use: No Preferred Language: Surinamese Communication Ability: Unable Communication Ability Comment: Limited understanding of Kyrgyz. 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 Feels Safe at Home: Yes Safety Concerns: Feels Safe At This Time Assistive Devices: None Review of Systems Review of Systems: Abdominal pain, altered mental status, complete review of system could not be done because of the patient's mental condition Constitutional: as per Subjective / HPI Eyes: as per Subjective / HPI Ear, Nose, Mouth, Throat: as per Subjective / HPI Respiratory: as per Subjective / HPI Cardiovascular: as per Subjective / HPI Gastrointestinal: as per Subjective / HPI Genitourinary: as per Subjective / HPI Musculoskeletal: as per Subjective / HPI Integumentary: as per Subjective / HPI Neurologic: as per Subjective / HPI Physical Exam Constitutional: WD/WN, vitals as above Eyes: PERRL, conjunctivae normal, anicteric sclerae ENMT: external ear and nose normal, oropharynx normal Neck: trachea midline, no thyromegaly Respiratory: normal respiratory effort, lungs clear to auscultation Cardiovascular: RRR, no murmur, no edema Gastrointestinal (Abdomen): normal bowel sounds, soft, nontender, no hepatosplenomegaly abdominal distention, generalized abdominal tenderness Musculoskeletal: no cyanosis or clubbing, extremities motor strength 5/5 Skin: no rashes, warm and dry Neurologic: patellar DTR's 2+ bilat, sensation intact Psychiatric: A+Ox3, euthymic affect Results & Data Vital Signs (Past 12 Hours) Vital Signs Temp Pulse Resp BP Pulse Ox O2 Del Method O2 Flow Rate 05/04/24 03:52 36.3 C L 74 18 114/55 L 96 Nasal Cannula 2 05/04/24 00:21 36.8 C 67 18 138/87 96 Nasal Cannula 2 05/03/24 21:36 36.4 C L 73 16 138/81 97 Nasal Cannula 2 05/03/24 21:31 Nasal Cannula 2
[2024-05-04 09:35] LABS: Basophils # (auto) 0.05 K/uL (0.00-0.20); Basophils % (auto) 0.3 %; Eosinophils # (auto) 0.18 K/uL (0.00-0.50); Eosinophils % (auto) 1.3 %; Hematocrit (blood only) 39.6 % (37.0-47.0); Hemoglobin 13.5 g/dl (12.0-16.0); Immature Granulocytes # (auto) 0.11 K/uL (0.01-0.20); Immature Granulocytes % (auto) 0.8 %; Lymphocytes # (auto) 1.31 K/uL (1.20-3.40); Lymphocytes % (auto) 9.1 %; Mean Corpuscular Hemoglobin 30.8 pg (25.0-34.0); Mean Corpuscular Hgb Conc 34.1 g/dL (32.0-36.0); Mean Corpuscular Volume 90.4 fL (80.0-100.0); Mean Platelet Volume 11.9 fL (9.4-12.4); Monocytes # (auto) 0.95 K/uL (0.11-0.59); Monocytes % (auto) 6.6 %; Neutrophils # (auto) 11.72 K/uL (1.40-6.50); Neutrophils % (auto) 81.9 %; Platelet Count 69 K/uL (130-400); RDW Coefficient of Variation 16.4 % (11.5-14.5); Red Blood Count 4.38 M/uL (4.20-5.40); White Blood Count 14.32 K/ul (4.8-10.8)
[2024-05-04 09:45] LABS: Albumin Globulin Ratio 0.8 (0.9-2); Albumin Globulin Ratio 0.9 (0.9-2); Albumin Level 2.7 gm/dl (3.4-5.0); Albumin Level 2.8 gm/dl (3.4-5.0); BUN Creatinine Ratio 52.3 (10-20); BUN Creatinine Ratio 53.5 (10-20); Bilirubin,Total 4.1 mg/dl (0.2-1.0); Calcium 7.6 mg/dl (8.6-10.3); Calcium 7.7 mg/dl (8.6-10.3); Creatinine Clr Calc Pharmacy 173.4 ml/min; Creatinine Clr Calc Pharmacy 177.5 ml/min; Globulin 3.2 gm/dl (2.5-4.0); Globulin 3.4 gm/dl (2.5-4.0); Potassium 4.8 mmol/L (3.5-5.1); Total Protein 6.1 gm/dl (6.0-8.3)
[2024-05-04 09:54] LABS: INR 1.4 (0.9-1.1); Prothrombin Time 14.9 Seconds (9.0-12.0)
[2024-05-04] MEDS: cefTRIAXone SODIUM 2,000 MG/50 ML BAG IV SCH (10:41)
[2024-05-04] MEDS: PANTOprazole 40 MG/10 ML SYR IV SCH (10:41)
--- NOTE | 2024-05-04 10:48 | Gastroenterology Progress Note ---
Date of Service May 04, 2024 Assessment & Plan (1) Portal vein thrombosis: Plan: -Continue anticoagulation -Monitor CBC, CMP, PT/INR -Monitor for overt GI bleeding (2) Cirrhosis of liver not due to alcohol: Plan: -2 gm Na restricted diet when eating -Limit Tylenol to <2000 mg daily; avoid NSAIDs -Will need eventual repeat EGD -Continue home dose of Protonix, Nadolol. -Concern for hepatic encephalopathy vs narcotic related issue vs bacteremia or multifactorial. Ammonia 122; Would add Xifaxan and Lactulose to be titrated to a goal of 3-4 BMs daily; Appears she has been ordered a Lactulose enema as well per the primary service -Will need outpatient book sewing machine operator upon discharge -Monitor daily MELD (3) Helicobacter pylori gastritis: Plan: -Awaiting stool antigen to ensure eradication from 2023 infection Admission and Anticipated Discharge Date Admission Date: May 03, 2024 Supervising Physician Co-Signing Physician Notes Reviewed with hospitalist. Reviewed with Shruti Reyes. Patient is confused today. I believe this is probably combination of pain medications hepatic encephalopathy and delirium. She does have significant abdominal pain. I believe this is related to her mesenteric vein thrombosis. She is currently getting IV Lovenox twice daily at 1 mg/kg. Hematology has been consulted awaiting their opinion. Patient has serious medical conditions though not immediate correctable other than what is currently being done. Continue lactulose IV heparin. Patient remains a significant risk of deterioration and bleeding. Subjective Patient is a 63 yo female with hep C cirrhosis and portal vein thrombus. Patient was initiated on weight based Lovenox. Per nursing patient continues to require pain medication due to severe abdominal pain and is confused. Ammonia 122. Review of Systems Gastrointestinal: + abdominal pain Physical Exam Gastrointestinal (Abdomen): Percussion/Palpation: + abdomen tender Results & Data Results & Data Vital Signs (Past 12 Hours) Vital Signs Temp Pulse Resp BP Pulse Ox O2 Del Method O2 Flow Rate 05/04/24 09:33 93 Nasal Cannula 2 05/04/24 09:29 72 16 101/65 96 Room Air 05/04/24 09:21 Room Air 05/04/24 09:19 75 89/57 L 05/04/24 07:50 74 18 98 Nasal Cannula 3 05/04/24 03:52 36.3 C L 74 18 114/55 L 96 Nasal Cannula 2 05/04/24 00:21 36.8 C 67 18 138/87 96 Nasal Cannula 2 PG Care Time/CCT Total # of Minutes Spent Total Time Spent with Patient: Total time spent is greater than 50% in coordination of care (as documented) at patient's floor/unit and/or counseling patient: Coding Level of Care Code 38598 SUB INP/OBS CARE 04/17MIN Diagnoses Portal vein thrombosis I81 Cirrhosis of liver not due to alcohol K74.60 Helicobacter pylori gastritis K29.70; B96.81
[2024-05-04] MEDS: HYDROmorphone INJ 0.5 MG/0.5 ML SYR IV PRN (12:11)
--- NOTE | 2024-05-04 12:33 | Hospitalist Progress Note ---
Date of Service May 04, 2024 Assessment & Plan (1) Acute metabolic encephalopathy: Plan: Likely hepatic encephalopathy, ammonia level quite elevated at 122 and has not moved her bowels in 5 days Also contributing are opioid use in the setting of cirrhosis Keep n.p.o., transferred to PCU for closer monitoring, start lactulose enemas 3 times daily Follow ammonia level, LFTs, INR, CBC in the morning Monitor for airway protection (2) Acute generalized abdominal pain: Plan: Epigastric pain probably due to acute gastritis or PUD vs SMV and portal vein thromboses and PVT. Most recent EGD done in June 2023 also revealed the presence of duodenal ulcerations. She had repeat CT A/P 05/03 with no new findings but does have bowel wall edema, no perforation. Lactate is normal GI following and considering EGD but now with significant encephalopathy-likely hepatic, will hold off. Change PPI to IV bid, keep NPO, continue maintenance IVFs, dc aldactone Continue Dilaudid but lowered the dose to 0.5 IV every 3 hours to help with confusion but continue to treat pain. Cannot give NSAIDs due to being on blood thinners and with thrombocytopenia. (3) Portal vein thrombosis: Plan: and SMV and splenic vein thromboses likely new compared to previous but has had these in the past as well Treating with Lovenox SQ while platelets are hovering around 50,000, eventually restart Coumadin Follow INR Appreciate hematology consultation-he recommends eventually putting her on Eliquis if cost affordable but has not been in the past-restart Coumadin when able to take p.o. if platelets greater than 50,000 (4) Bacteremia: Plan: Blood cultures from admission growing Streptococcus mitis-she could potentially have an oral source versus GI source. Also with abnormal UA, follow urine culture Consult ID Check echocardiogram Follow repeat blood cultures Change Zosyn to ceftriaxone (5) Cirrhosis of liver: Plan: Known cirrhosis from hepatitis C with esophageal varices. Son reports she was treated for HCV previously GI service has recommended follow-up with a rotating equipment specialist which I agree with. Unfortunately, [facility] has refused to accept this patient in transfer. She remains on nadolol but is n.p.o. for confusion and will hold spironolactone. With hepatic encephalopathy Start rifaximin and lactulose once able to take p.o. but giving DE lactulose for now (6) Esophageal varices: Plan: No current bleeding. Continue Nadolol once able to take p.o. and once hepatic encephalopathy improves Most recent EGD done in June 2023 reveals grade 2 varices and she also had evidence of duodenal ulcers. GI service is considering repeat EGD (7) T2DM (type 2 diabetes mellitus): Plan: Basal and bolus insulin Plan #Right breast mass-she has declined to have this biopsied in the past, but will address once her acute issues have stabilized DVT prophylaxis-Lovenox Disposition-transfer to PCU, condition is guarded, discussed all care with son at the bedside. He and his brother would be her primary decision makers as she is Admission and Anticipated Discharge Date Admission Date: May 03, 2024 Subjective Patient extremely confused, moaning and rolling around in bed. At some points is able to tell her son she has pain. Was not speaking to me with fuel management handler. She had not moved her bowels in 5 days. Discussed care with GI, infectious disease, and nursing. Transferred to PCU given significant hepatic encephalopathy I also discussed her care extensively with her son at the bedside Physical Exam Constitutional: WD/WN, vitals as above Respiratory: normal respiratory effort, lungs clear to auscultation Cardiovascular: RRR, no murmur, no edema Gastrointestinal (Abdomen): Inspection/Auscultation: normal bowel sounds Percussion/Palpation: abdomen soft; no guarding and abdomen not rigid Psychiatric: Orientation: + not alert and + not oriented x 3 Results & Data Results & Data Vital Signs (Past 12 Hours) Vital Signs Temp Pulse Resp BP Pulse Ox O2 Del Method O2 Flow Rate 05/04/24 09:33 93 Nasal Cannula 2 05/04/24 09:29 72 16 101/65 96 Room Air 05/04/24 09:21 Room Air 05/04/24 09:19 75 89/57 L 05/04/24 07:50 74 18 98 Nasal Cannula 3 05/04/24 03:52 36.3 C L 74 18 114/55 L 96 Nasal Cannula 2 Laboratory Results CBC, CMP, INR, blood cultures, lactate, urine culture reviewed Diagnostic Findings CT abdomen/pelvis reviewed PG Care Time/CCT Total # of Minutes Spent Total Time Spent with Patient: Total time spent is greater than 50% in coordination of care (as documented) at patient's floor/unit and/or counseling patient: Coding Level of Care Code 94652 SUB INP/OBS CARE 3/50MIN Diagnoses Acute metabolic encephalopathy G93.41 Acute generalized abdominal pain R10.84 Portal vein thrombosis I81 Bacteremia R78.81 Cirrhosis of liver K74.60 Esophageal varices I85.00 T2DM (type 2 diabetes mellitus) E11.9
--- NOTE | 2024-05-04 13:10 | Infectious Disease Consult ---
Date of Consultation May 04, 2024 Assessment & Plan (1) Streptococcal bacteremia: (2) Portal vein thrombosis: (3) Acute generalized abdominal pain: (4) Acute metabolic encephalopathy: Plan Problems: #Strep mitis/oralis bacteremia #Abdominal pain #HCV cirrhosis c/b esophageal varices, ascites: HCV RNA neg #Portal vein thrombosis #Thrombocytopenia Micro: 05/04 BCx x2: pending 05/03 UCx: mixed eliezer 04/30 UCx: mixed eliezer 04/29 BCx x2: Strep mitis/oralis in 1/4 bottles 04/15 L buttock wound cx: GBS 03/31 BCx x2: GBS in 4/4 bottles Abx: Ceftriaxone 05/04 - present Pip-tazo 05/02 - 05/04 63-year-old Estonian-speaking F with h/o treated HCV with cirrhosis c/b ascites, esophageal varices, portal vein thrombosis (off Coumadin since 04/17/24 due to bleeding risk, with 03/30/24 CT showing resolution of thrombosis), venous insu fficiency, recent admission 03/2024 with LLE cellulitis c/b GBS bacteremia s/p 2 weeks antibiotics through 04/14/24 (ceftriaxone --> amoxicillin 1 g q8h), recent hospitalization 04/16-04/17 for fever, weakness and stiff joints (BCx negative) felt to be a viral syndrome, who presented on 04/29 with 10/10 abdominal pain, found to again have portal vein thrombosis, and Strep mitis/oralis bacteremia. Pt denied fevers or chills. On presentation, she was afebrile, VSS. Labs without leukocytosis, plt 28, lactate 2.1. BCx grew Strep mitis/oralis in 1/4 bottles. She was started on pip-tazo on 05/02. Denies any prosthetics/hardware. CT AP showed partially occlusive thrombus in portal vein, superior mesenteric vein, splenic vein. Initial CT wo contrast also showed dilated duodenum and proximal jejunum, c/f chronic/low grade obstruction, and thickening of ascending colon. Repeat CTs have not shown bowel obstruction. CT 05/01 did comment on small bowel mucosa diffusely prominent with similar prominent mesenteric fat stranding and edema, favoring edema from compromised portal venous return, and infectious enteritis considered less likely. Also with large volume R pleural effusion. She was started on Protonix and Carafate for epigastric pain thought to be due to acute gastritis. Pt continues to have severe abdominal pain and is confused. Discussion: Unclear source of Strep mitis/oralis bacteremia. Per son, pt does not have dental issues, although currently unable to examine her mouth. Could be from GI source with transient bacteremia related to bowel wall thickening seen on CT? Could consider pylephlebitis given the portal vein thrombosis, but this occurs due to thrombophlebitis of small veins draining an area of infection, and CT has not shown a clear source of intra-abdominal infection--does show some prominent bowel mucosa but favored to be related to compromised portal venous return rather than infectious enteritis. Has small to moderate volume of ascites--no paracentesis done. Does appear to be low grade bacteremia in 1/ bottles; will follow-up repeat blood cultures. Has remained afebrile. Pt developed leukocytosis to 16.7 on 05/03 despite starting pip-tazo on 05/02. Now decreased to 14.32. Recommendations: -Continue ceftriaxone 2 g IV q24h -Requested sensitivities on Strep mitis/oralis -Follow-up repeat blood cultures from 05/04 -TTE to evaluate for endocarditis -Evaluate for recent dental work, poor dentition Will continue to follow. Consultation Information This patient recommendation is based on a telemedicine consult request which was completed asynchronously through chart review and information provided by the primary physician. The patient was not seen or examined today. The evaluation is consultative in nature and all patient care and treatment decisions can either be accepted or rejected by the patient's primary hospital-based treating physician using their own independent medical judgment for their patient. Heel Boom Operator contact information: Please call [facility] . (Phone Number For Physician Use Only) An e-consult was performed due to lack of telepresenter availability. Time Spent Reviewing Chart: 31+ minutes History of Present Illness Reason for Consultation: Strep bacteremia Attending Physician: Shakira Alcaraz MD History of Present Illness 63-year-old Estonian-speaking F with h/o portal vein thrombosis (off Coumadin since 04/17/24 due to esophageal varices), cirrhosis, hepatitis C, venous insufficiency, recent admission 03/2024 with LLE cellulitis c/b GBS bacteremia s/p 2 weeks antibiotics through 04/14/24 (ceftriaxone --> amoxicillin 1 g q8h), recent hospitalization 04/16-04/17 for fever, weakness and stiff joints (BCx negative) felt to be a viral syndrome, who presented on 04/29 with 10/10 abdominal pain x 1 day. Denied fevers or chills. Reported nausea. On presentation, pt was afebrile, VSS. Labs showed WBC 4.73, plt 28 (chronic), lactate 2.1, normal AST and ALT, Tbili 1.8, procalcitonin 0.06. UA with 21-50 WBCs. RVP negative. BCx obtained. CT AP wo contrast showed dilated duodenum and proximal jejunum with fecalization of duodenum c/f chronic/low grade obstruction, cirrhosis and sequelae of portal hypertension including varices, marked splenomegaly and mild ascites, dilated portal vein cannot exclude thrombosis, thickening of ascending colon likely relating to chronic liver disease. CXR with possible bilateral subhilar pulmonary infiltration/atelectasis. Portal vein US with nonocclusive/partially recanalized thrombus in main portal vein. A repeat CT AP with IV and oral contrast on 04/30 showed a nonocclusive thrombus in the portal vein, splenic vein, and superior mesenteric vein; cirrhosis, portal hypertension, and trace ascites. She was started on Protonix and Carafate for epigastric pain thought to be due to acute gastritis. Admission blood cultures from 04/29 grew Strep mitis/oralis in / bottles. Pt was started on pip-tazo on 05/02. Per chart review, pt denies any prosthetics/hardware. Pt continued to have abdominal pain, and CT A/P repeated 05/01 and 05/03 without significant new findings--no obvious progression of clot, some small bowel wall thickening. Allergies Allergy/AdvReac Type Severity Reaction Status Date / Time menthol Allergy Severe Anaphylaxis Verified 04/30/24 01:50 mint Allergy Severe Anaphylaxis Verified 04/30/24 01:50 Home Medications Medication Instructions Recorded Confirmed Type dapagliflozin propanediol 10 mg 10 mg PO DAILY 07/26/23 04/30/24 History tablet (Farxiga) ondansetron 4 mg disintegrating 4 mg PO TID PRN n/v #20 tabs 07/29/23 04/30/24 Rx tablet gabapentin 400 mg capsule 400 mg PO TID 04/30/24 04/30/24 History nadolol 20 mg tablet 20 mg PO DAILY 04/30/24 04/30/24 History spironolactone 1 tab PO DAILY 04/30/24 04/30/24 History Patient History Medical History Acute pancreatitis Lyme disease Hx of sepsis Hx of small bowel obstruction Hx of Lyme disease treated, no current issues Hx of hepatitis C dx in [place] in 2019 during a vacation - [facility] patient did have treatment in the past unsure if it was October 2020 or October 2021. Edema bilateral legs, rare Hypothyroidism hx of taking levothyroxine in November 2021 -- no longer takes. Venous stasis dermatitis of both lower extremities Surgical History History of abdominal paracentesis H/O umbilical hernia repair (~01/2020) [place] Family History Mother Gastric cancer Father Stroke Social History Smoking Status: Never smoker Second Hand Exposure: No; Do You Dip or Chew Tobacco: No; Hx Alcohol Use: No Hx Substance Use: No Preferred Language: Estonian Communication Ability: Effective Communication Ability Comment: Limited understanding of Arabic. 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 Feels Safe at Home: Yes Safety Concerns: Feels Safe At This Time Assistive Devices: None Results & Data Vital Signs (Past 12 Hours) Vital Signs Temp Pulse Resp BP Pulse Ox O2 Del Method O2 Flow Rate 05/04/24 09:33 93 Nasal Cannula 2 05/04/24 09:29 72 16 101/65 96 Room Air 05/04/24 09:21 Room Air 05/04/24 09:19 75 89/57 L 05/04/24 07:50 74 18 98 Nasal Cannula 3 05/04/24 03:52 36.3 C L 74 18 114/55 L 96 Nasal Cannula 2 Laboratory Results Short CBC 05/04/24 Range/Units 09:07 WBC 14.32 H (4.8-10.8) K/ul Hgb 13.5 (12.0-16.0) g/dl Hct 39.6 (37.0-47.0) % Plt Count 69 L (130-400) K/uL BMP 05/03/24 05/04/24 05/04/24 16:33 09:07 09:07 Sodium 138 139 140 Potassium 4.7 4.8 Chloride 105 Carbon Dioxide 29 BUN 22 Creatinine 0.42 L Glucose 221 H Calcium 8.0 L 05/04/24 05/04/24 05/04/24 09:07 09:07 09:07 Sodium Potassium 4.8 Chloride 105 106 Carbon Dioxide 31 31 BUN 23 Creatinine Glucose Calcium 05/04/24 05/04/24 05/04/24 09:07 09:07 09:07 Sodium Potassium Chloride Carbon Dioxide BUN 23 Creatinine 0.44 L 0.43 L Glucose 189 H 189 H Calcium 7.7 L 05/04/24 09:07 Sodium Potassium Chloride Carbon Dioxide BUN Creatinine Glucose Calcium 7.6 L Liver Function 05/03/24 05/04/24 05/04/24 Range/Units 16:33 09:07 09:07 Total Bilirubin 4.1 H 4.1 H 4.0 H (0.2-1.0) mg/dl AST 26 35 (13-39) U/L ALT 20 (7-52) U/L Alkaline Phosphatase 75 (34-104) U/L Albumin 2.6 L (3.4-5.0) gm/dl 05/04/24 05/04/24 05/04/24 Range/Units 09:07 09:07 09:07 Total Bilirubin (0.2-1.0) mg/dl AST 34 (13-39) U/L ALT 22 21 (7-52) U/L Alkaline Phosphatase 83 85 (34-104) U/L Albumin 2.7 L (3.4-5.0) gm/dl 05/04/24 Range/Units 09:07 Total Bilirubin (0.2-1.0) mg/dl AST (13-39) U/L ALT (7-52) U/L Alkaline Phosphatase (34-104) U/L Albumin 2.8 L (3.4-5.0) gm/dl Diagnostic Findings KUB X-Ray 05/01/24 19:45 Exam(s): XR KUB EXAM: XR Abdomen, 1 View CLINICAL HISTORY: Reason for exam: worsening abd pain - r/o bowel obstruction. TECHNIQUE: Frontal supine view of the abdomen/pelvis. COMPARISON: 04/30/24 FINDINGS: Gastrointestinal tract: Oral contrast within the large bowel. No bowel dilatation to suggest obstruction. Bones/joints: No acute fracture. No dislocation. IMPRESSION: Oral contrast within the large bowel. No bowel dilatation to suggest obstruction. Electronically signed by: Edith Bañuelos M.D. 05/01/24 22:29 PM Abdomen/Pelvis CT 05/01/24 22:25 Exam(s): CT ABDOMEN + PELVIS W/WO Contrast IV Amt: 90 ml opti 320 EXAM: CT Abdomen and Pelvis Without and With Intravenous Contrast CLINICAL HISTORY: exac abd pain, r/o progression of portal vein thrombosis vs obstruction. TECHNIQUE: Axial computed tomography images of the abdomen and pelvis without and with intravenous contrast. CTDI is 56.42 mGy and DLP is 2894.64 mGy-cm. Automated exposure control was utilized for the study. A dose lowering technique was utilized adhering to the principles of ALARA. CONTRAST: Patient received 90 ml opti 320 of IV contrast COMPARISON: CT abdomen and pelvis with contrast dated 04/30/2024 FINDINGS: Lung bases: Subsegmental changes noted at the lung bases. Pleural space: Large volume right pleural effusion persists. ABDOMEN: Liver: Markedly abnormal liver with lobular contours again noted. Gallbladder and bile ducts: Unremarkable. No calcified stones. No ductal dilation. Pancreas: Unremarkable. No mass. No ductal dilation. Spleen: Stable splenomegaly. Adrenals: Unremarkable. No mass. Kidneys and ureters: Unremarkable. No solid mass. No obstructing stones. No hydronephrosis. Stomach and bowel: The stomach is hypoenhancing diffusely with diffuse mucosal thickening, more prominent from the previous examination. No evidence for focal high-grade bowel obstruction. The small bowel mucosa is diffusely prominent with similar prominent mesenteric fat stranding and edema. PELVIS: Appendix: The appendix is not clearly delineated. There is no findings to suggest acute appendicitis. Bladder: Unremarkable. No mass. No stones. Reproductive: Unremarkable as visualized. ABDOMEN and PELVIS: Intraperitoneal space: There is interval increase in the ascites when compared to the previous examination. No loculation. No free air. Bones/joints: No acute fracture. No dislocation. Soft tissues: A small right inguinal hernia containing fluid from the intraperitoneal space is again noted. Subcutaneous fat stranding throughout the soft tissues of the abdomen and pelvis is increased from the previous examination. Vasculature: The partially occlusive thrombus in the main portal vein and an segments of the proximal superior mesenteric vein and splenic vein are grossly stable in appearance. Evaluation of the proximal branches of the superior mesenteric vein near the small bowel is limited by extensive respiratory artifact. Recanalized paraumbilical vein, stable. No abdominal aortic aneurysm. Lymph nodes: Unremarkable. No enlarged lymph nodes. IMPRESSION: 1. The partially occlusive thrombus in the main portal vein and an segments of the proximal superior mesenteric vein and splenic vein are grossly stable in appearance. Evaluation of the proximal branches of the superior mesenteric vein near the small bowel is limited by extensive respiratory artifact. Stable distal esophageal and proximal gastric varices, similar. 2. The stomach is hypoenhancing diffusely with diffuse mucosal thickening, more prominent from the previous examination. Developing gastritis may be present. 3. There is interval increase in the ascites when compared to the previous examination. No loculation. 4. No evidence for focal high-grade bowel obstruction. The small bowel mucosa is diffusely prominent with similar prominent mesenteric fat stranding and edema. Favor edema from compromised portal venous return. Infectious enteritis is considered less likely. 5. Large volume right pleural effusion persists. 6. Subcutaneous fat stranding throughout the soft tissues of the abdomen and pelvis is increased from the previous examination. Suspect advancing positive fluid status/anasarca. Electronically signed by: Vickey Frederick MD 05/02/24 02:42 AM Abdomen/Pelvis CT 05/03/24 09:[address] WITH IV AND ORAL CONTRAST CT DOSE: 1575.51 mGy.cm HISTORY: Follow-up study in a patient with acute generalized abdominal pain with reported portal vein thrombus portal vein thrombus TECHNIQUE: Multiaxial CT images of the abdomen and pelvis were performed following the IV administration of 93 cc of Optiray and oral contrast. A dose lowering technique was utilized adhering to the principles of ALARA. COMPARISON STUDY: CT abdomen and pelvis 05/01/2024, CT abdomen and pelvis 04/30/2024 and 625 FINDINGS: Cardiomegaly. Trace left with moderate pleural effusions. Right lower lobe consolidation/volume loss. Mild left basilar atelectasis. No pneumatosis or pneumoperitoneum. The spleen is enlarged measuring up to 20 cm. Unremarkable pancreas and adrenal glands. Unchanged mild gallbladder wall thickening. Cirrhotic liver. No hepatic mass identified. Thrombi again noted within the portal, splenic and superior mesenteric veins without significant change. Abdominal pelvic varicosities with unchanged small to moderate volume of ascites. Atherosclerosis of the aorta. Unchanged retroperitoneal lymph nodes measuring up to 11 mm within the periaortic distributions. Small fat and fluid filled right inguinal hernia. Unremarkable kidneys without hydronephrosis. Urinary bladder and uterus are unremarkable. Prominent periesophageal varicosities. -Focal wall thickening with partial distention. Contrast within the large bowel. Colonic diverticulosis. Several loops of small bowel demonstrates circumferential wall thickening in the lower abdomen and pelvis, similar to prior. Mesenteric edema with anasarca. 2 cm mass of the inferior lateral quadrant right breast. IMPRESSION: 1. Cirrhosis with stigmata of portal venous hypertension redemonstrated including ascites with splenomegaly and prominent abdominal varicosities. 2. Unchanged appearance of the thrombi within the portal, superior mesenteric and splenic veins. 3. No bowel obstruction or pneumoperitoneum. 4. Wall thickening again noted within several loops of small bowel, likely secondary to portal enteropathy. A nonspecific enteritis considered less likely. 5. Moderate right pleural effusion. 6. Indeterminate 2 cm right breast mass. Correlation with mammogram recommended. ACT 112: Negative or not required by law. The above report was generated using voice recognition software. It may contain grammatical, syntax or spelling errors. Electronically signed by: Tom Houston M.D. 05/03/2024 3:15 PM Medications Administered Current Inpatient Medications Bisacodyl (Bisacodyl 10 Mg Supp) 10 mg ME DAILY PRN PRN Reason: Constipation Stop: 05/30/24 05:40 Dextrose (Dextrose 50% 50 Ml Syringe) 25 - 50 ml IV UD PRN; Protocol PRN Reason: Hypoglycemia Protocol Stop: 05/30/24 05:40 Enoxaparin Sodium (Enoxaparin Inj 120 Mg/0.8 Ml Syr) 120 mg SQ Q12H JOSE DAVID Stop: 06/02/24 17:14 Last Admin: 05/04/24 05:30 Dose: 120 mg Gabapentin (Gabapentin 400 Mg Cap) 400 mg PO TID [facility] Stop: 05/30/24 08:59 Last Admin: 05/04/24 10:15 Dose: Not Given Glucagon (Glucagon For Inj 1 Mg Vial) 1 mg SQ UD PRN; Protocol PRN Reason: Hypoglycemia Protocol Stop: 05/30/24 05:40 Glucose (Glucose 40% Gel 15 Gm Tube) 15 - 30 gm PO UD PRN; Protocol PRN Reason: Hypoglycemia Protocol Stop: 05/30/24 05:40 Glucose (Glucose 10 Tab/Tube) 4 - 8 tab PO UD PRN; Protocol PRN Reason: Hypoglycemia Protocol Stop: 05/30/24 05:40 Hydromorphone HCl (Hydromorphone Inj 0.5 Mg/0.5 Ml Syr) 0.5 mg IV Q3H PRN PRN Reason: Pain, level 1-5 Stop: 05/17/24 16:59 Last Admin: 05/04/24 12:11 Dose: 0.5 mg Promethazine HCl (Phenergan) 12.5 mg in 50.5 mls @ 202 mls/hr IV Q6H PRN PRN Reason: Nausea And Vomiting Stop: 05/31/24 15:06 Sodium Chloride (Nss) 1,000 mls @ 70 mls/hr IV .[id number] [facility] Stop: 05/06/24 10:44 Last Infusion: 05/04/24 10:20 Dose: 70 mls/hr Pantoprazole Sodium (Protonix) 40 mg in 10 mls @ 5 mls/min IV BID [facility] Stop: 06/03/24 10:14 Last Admin: 05/04/24 10:41 Dose: 5 mls/min Ceftriaxone Sodium (Rocephin) 2,000 mg in 50 mls @ 100 mls/hr IV Q24H [facility] Stop: 05/18/24 09:59 Last Infusion: 05/04/24 11:25 Dose: Infused Insulin Aspart (Insulin Aspart Per Unit Charge) 0 units SC Q6 [facility] Stop: 06/01/24 05:59 Last Admin: 05/04/24 12:44 Dose: 3 units Insulin Human NPH (Insulin Human Nph) 5 units SC BID@0800,2000 [facility] Stop: 06/02/24 19:59 Last Admin: 05/04/24 09:41 Dose: 5 units Lactulose (Lactulose 200gm/700ml Wtr Enema) 200 gm ME Q8H [facility] Stop: 06/03/24 13:59 Miscellaneous (Carbohydrates For Hypoglycemia ) 15 - 30 gm PO UD PRN PRN Reason: Hypoglycemia Protocol Stop: 05/30/24 05:40 Nadolol (Nadolol 40 Mg Tab) 20 mg PO DAILY [facility] Stop: 05/30/24 08:59 Last Admin: 05/04/24 09:38 Dose: Not Given Ondansetron HCl (Ondansetron Inj 2 Mg/Ml 2 Ml Vial) 4 mg IV Q6H PRN PRN Reason: Nausea And Vomiting Stop: 05/30/24 05:40 Last Admin: 05/03/24 21:43 Dose: 4 mg Spironolactone (Spironolactone 25 Mg Tab) 25 mg PO DAILY [facility] Stop: 05/30/24 08:59 Last Admin: 05/04/24 10:15 Dose: Not Given Sucralfate (Sucralfate 1 Gm Tab) 1 gm PO QID [facility] Stop: 05/30/24 12:59 Last Admin: 05/04/24 10:15 Dose: Not Given
[2024-05-04] MEDS: HYDROmorphone INJ 0.5 MG/0.5 ML SYR IV STA ×2 (13:44→20:34)
[2024-05-04] MEDS: LACTULOSE 200GM/700ML WTR ENEMA PR SCH (14:57)
--- NOTE | 2024-05-04 15:56 | XCELERA ---
[id number] \\[id number]
[2024-05-04] MEDS: LACTULOSE SYRUP 30 GM/45 ML UDP PO SCH (20:50)
[2024-05-04] MEDS: rifAXIMin 550 MG TABLET PO SCH (21:48)
[2024-05-05] MEDS: OLANZapine 10 MG/2.1 ML SDV IM STA (04:29)
[2024-05-05 06:07] LABS: Basophils # (auto) 0.02 K/uL (0.00-0.20); Basophils % (auto) 0.3 %; Eosinophils # (auto) 0.18 K/uL (0.00-0.50); Eosinophils % (auto) 2.3 %; Hematocrit (blood only) 36.5 % (37.0-47.0); Hemoglobin 12.5 g/dl (12.0-16.0); Immature Granulocytes # (auto) 0.05 K/uL (0.01-0.20); Immature Granulocytes % (auto) 0.6 %; Lymphocytes # (auto) 0.85 K/uL (1.20-3.40); Mean Corpuscular Hemoglobin 31.9 pg (25.0-34.0); Mean Corpuscular Hgb Conc 34.2 g/dL (32.0-36.0); Mean Corpuscular Volume 93.1 fL (80.0-100.0); Mean Platelet Volume 12.1 fL (9.4-12.4); Monocytes # (auto) 0.61 K/uL (0.11-0.59); Monocytes % (auto) 7.9 %; Neutrophils # (auto) 6.01 K/uL (1.40-6.50); Neutrophils % (auto) 77.9 %; Platelet Count 50 K/uL (130-400); RDW Coefficient of Variation 16.9 % (11.5-14.5); RDW Standard Deviation 53.6 fL (36.4-46.3); Red Blood Count 3.92 M/uL (4.20-5.40); White Blood Count 7.72 K/ul (4.8-10.8)
--- NOTE | 2024-05-05 08:09 | Infectious Disease Progress Nt ---
Date of Service May 05, 2024 Assessment & Plan (1) Streptococcal bacteremia: (2) Portal vein thrombosis: (3) Acute generalized abdominal pain: (4) Acute metabolic encephalopathy: Plan Problems: #Strep mitis/oralis bacteremia #Abdominal pain #HCV cirrhosis c/b esophageal varices, ascites: HCV RNA neg #Portal vein thrombosis #Thrombocytopenia Micro: 05/04 BCx x2: pending 05/03 UCx: mixed eliezer 04/30 UCx: mixed eliezer 04/29 BCx x2: Strep mitis/oralis in 1/4 bottles 04/15 L buttock wound cx: GBS 03/31 BCx x2: GBS in 4/4 bottles Abx: Ceftriaxone 05/04 - present Pip-tazo 05/02 - 05/04 63-year-old Chadian-speaking F with h/o treated HCV with cirrhosis c/b ascites, esophageal varices, portal vein thrombosis (off Coumadin since 04/17/24 due to bleeding risk, with 03/30/24 CT showing resolution of thrombosis), venous ins ufficiency, recent admission 03/2024 with LLE cellulitis c/b GBS bacteremia s/p 2 weeks antibiotics through 04/14/24 (ceftriaxone --> amoxicillin 1 g q8h), recent hospitalization 04/16-04/17 for fever, weakness and stiff joints (BCx negative) felt to be a viral syndrome, who presented on 04/29 with 10/10 abdominal pain, found to again have portal vein thrombosis, and Strep mitis/oralis bacteremia. Pt denied fevers or chills. On presentation, she was afebrile, VSS. Labs without leukocytosis, plt 28, lactate 2.1. BCx grew Strep mitis/oralis in 1/4 bottles. She was started on pip-tazo on 05/02. Denies any prosthetics/hardware. CT AP showed partially occlusive thrombus in portal vein, superior mesenteric vein, splenic vein. Initial CT wo contrast also showed dilated duodenum and proximal jejunum, c/f chronic/low grade obstruction, and thickening of ascending colon. Repeat CTs have not shown bowel obstruction. CT 05/01 did comment on small bowel mucosa diffusely prominent with similar prominent mesenteric fat stranding and edema, favoring edema from compromised portal venous return, and infectious enteritis considered less likely. Also with large volume R pleural effusion. She was started on Protonix and Carafate for epigastric pain thought to be due to acute gastritis. Pt continues to have severe abdominal pain and is confused. Discussion: Unclear source of Strep mitis/oralis bacteremia. Per son, pt does not have dental issues, although currently unable to examine her mouth. Could be from GI source with transient bacteremia related to bowel wall thickening seen on CT? Could consider pylephlebitis given the portal vein thrombosis, but this occurs due to thrombophlebitis of small veins draining an area of infection, and CT has not shown a clear source of intra-abdominal infection--does show some prominent bowel mucosa but favored to be related to compromised portal venous return rather than infectious enteritis. Has small to moderate volume of ascites--no paracentesis done. Does appear to be low grade bacteremia in 1/4 bottles; will follow-up repeat blood cultures. Has remained afebrile. Pt developed leukocytosis to 16.7 on 05/03 despite starting pip-tazo on 05/02. Now decreased to 14.32. Recommendations: -Continue ceftriaxone 2 g IV q24h -Requested sensitivities on Strep mitis/oralis -Follow-up repeat blood cultures from 05/04 -TTE to evaluate for endocarditis -Evaluate for recent dental work, poor dentition Will continue to follow. Admission and Anticipated Discharge Date Admission Date: May 03, 2024 Subjective Subsequent visit was provided via telemedicine using two-way real-time in teractive telecommunication between the patient and the telemedicine provider. For the duration of the visit, the provider was performing the assessment from a different facility than the patient. This includesuse of bluetooth stethoscope forauscultationperformed by the telepresenter that the telemedicine provider can hear if described in the physical exam. [facility] [employer] contact information: Please call [facility] [phone]. (Phone Number For Physician Use Only) After establishing a telemedicine visit, patient was: Patient was verified with two unique identifiers, Patient/authorized rep acknowledged consent and understanding and Gave permission to continue telehealth session Time Spent with Patient: Subsequent => 25 min Agitated, confused Afebrile Leukocytosis resolved Continues on ceftriaxone TTE negative for vegetations Review of System Unable to obtain given patient condition. Physical Exam Physical Exam: GEN: Well-appearing, in NAD. HEENT: Normocephalic, atraumatic. PERRL, EOMI, no nystagmus. Ears symmetric. No oropharyngeal lesions or exudates LAD: No cervical, supraclavicular, or axillary LAD. No inguinal lymphadenopathy CV: Regular rate and rhythm, no murmurs/rubs/gallops. RESP: No increased work of breathing, lungs clear to auscultation bilaterally in posterior herbert. ABD: Soft, non-distended. Non-tender to palpation. EXT: No LE edema. Warm, well-perfused. SKIN: No lesions or rashes on exposed skin. BACK: No paraspinal tenderness or CVA tenderness NEURO: Alert and oriented. Answers all questions appropriately. Speech not slurred. PSYCH: Normal mood, affect appropriate. Results & Data Vital Signs (Past 12 Hours) Vital Signs Temp Pulse Pulse Resp BP Pulse Ox O2 Del Method 05/05/24 07:55 36.5 C 73 18 157/76 H 99 Nasal Cannula 05/04/24 23:43 36.6 C 68 12 112/72 100 Nasal Cannula 05/04/24 22:11 72 05/04/24 21:00 Nasal Cannula O2 Flow Rate 05/05/24 07:55 4 05/04/24 23:43 4.0 05/04/24 22:11 05/04/24 21:00 3 Laboratory Results Short CBC 05/04/24 05/05/24 Range/Units 09:07 05:40 WBC 14.32 H 7.72 (4.8-10.8) K/ul Hgb 13.5 12.5 (12.0-16.0) g/dl Hct 39.6 36.5 L (37.0-47.0) % Plt Count 69 L 50 L (130-400) K/uL BMP 05/04/24 05/04/24 05/04/24 09:07 09:07 09:07 Sodium 139 140 Potassium 4.8 4.8 Chloride 105 Carbon Dioxide BUN Creatinine Glucose Calcium 05/04/24 05/04/24 05/04/24 09:07 09:07 09:07 Sodium Potassium Chloride 106 Carbon Dioxide 31 31 BUN 23 23 Creatinine 0.44 L Glucose Calcium 05/04/24 05/04/24 05/04/24 09:07 09:07 09:07 Sodium Potassium Chloride Carbon Dioxide BUN Creatinine 0.43 L Glucose 189 H 189 H Calcium 7.7 L 7.6 L Liver Function 05/04/24 05/04/24 05/04/24 Range/Units 09:07 09:07 09:07 Total Bilirubin 4.1 H 4.0 H (0.2-1.0) mg/dl AST 35 34 (13-39) U/L ALT 22 (7-52) U/L Alkaline Phosphatase (34-104) U/L Albumin (3.4-5.0) gm/dl 05/04/24 05/04/24 05/04/24 Range/Units 09:07 09:07 09:07 Total Bilirubin (0.2-1.0) mg/dl AST (13-39) U/L ALT 21 (7-52) U/L Alkaline Phosphatase 83 85 (34-104) U/L Albumin 2.7 L 2.8 L (3.4-5.0) gm/dl Medications Administered Current Inpatient Medications Bisacodyl (Bisacodyl 10 Mg Supp) 10 mg [place] DAILY PRN PRN Reason: Constipation Stop: 05/30/24 05:40 Dextrose (Dextrose 50% 50 Ml Syringe) 25 - 50 ml IV UD PRN; Protocol PRN Reason: Hypoglycemia Protocol Stop: 05/30/24 05:40 Enoxaparin Sodium (Enoxaparin Inj 120 Mg/0.8 Ml Syr) 120 mg SQ Q12H [facility] Stop: 06/02/24 17:14 Last Admin: 05/05/24 05:25 Dose: Not Given Glucagon (Glucagon For Inj 1 Mg Vial) 1 mg SQ UD PRN; Protocol PRN Reason: Hypoglycemia Protocol Stop: 05/30/24 05:40 Glucose (Glucose 40% Gel 15 Gm Tube) 15 - 30 gm PO UD PRN; Protocol PRN Reason: Hypoglycemia Protocol Stop: 05/30/24 05:40 Glucose (Glucose 10 Tab/Tube) 4 - 8 tab PO UD PRN; Protocol PRN Reason: Hypoglycemia Protocol Stop: 05/30/24 05:40 Hydromorphone HCl (Hydromorphone Inj 0.5 Mg/0.5 Ml Syr) 0.5 mg IV Q3H PRN PRN Reason: Pain, level 1-5 Stop: 05/17/24 16:59 Last Admin: 05/05/24 06:09 Dose: 0.5 mg Sodium Chloride (Nss) 1,000 mls @ 70 mls/hr IV .[id number] [facility] Stop: 05/06/24 10:44 Last Admin: 05/04/24 20:32 Dose: 70 mls/hr Pantoprazole Sodium (Protonix) 40 mg in 10 mls @ 5 mls/min IV BID [facility] Stop: 06/03/24 10:14 Last Admin: 05/04/24 22:10 Dose: 5 mls/min Ceftriaxone Sodium (Rocephin) 2,000 mg in 50 mls @ 100 mls/hr IV Q24H [facility] Stop: 05/18/24 09:59 Last Infusion: 05/04/24 11:25 Dose: Infused Insulin Aspart (Insulin Aspart Per Unit Charge) 0 units SC Q6 [facility] Stop: 06/01/24 05:59 Last Admin: 05/05/24 06:37 Dose: 2 units Insulin Human NPH (Insulin Human Nph) 5 units SC BID@0800,2000 [facility] Stop: 06/02/24 19:59 Last Admin: 05/04/24 22:03 Dose: 5 units Lactulose (Lactulose 200gm/700ml Wtr Enema) 200 gm [place] Q8H [facility] Stop: 06/03/24 13:59 Last Admin: 05/05/24 05:25 Dose: Not Given Lactulose (Lactulose Syrup 30 Gm/45 Ml Udp) 30 gm PO BID [facility] Stop: 06/03/24 20:59 Last Admin: 05/04/24 20:50 Dose: Not Given Miscellaneous (Carbohydrates For Hypoglycemia ) 15 - 30 gm PO UD PRN PRN Reason: Hypoglycemia Protocol Stop: 05/30/24 05:40 Nadolol (Nadolol 40 Mg Tab) 20 mg PO DAILY [facility] Stop: 05/30/24 08:59 Last Admin: 05/04/24 09:38 Dose: Not Given Ondansetron HCl (Ondansetron Inj 2 Mg/Ml 2 Ml Vial) 4 mg IV Q6H PRN PRN Reason: Nausea And Vomiting Stop: 05/30/24 05:40 Last Admin: 05/03/24 21:43 Dose: 4 mg Rifaximin (Rifaximin 550 Mg Tablet) 550 mg PO BID [facility] Stop: 06/03/24 20:59 Last Admin: 05/04/24 21:48 Dose: Not Given
[2024-05-05] MEDS ORDERED: LACTULOSE 200GM/700ML WTR ENEMA PR PRN (08:41)
--- NOTE | 2024-05-05 08:41 | Hospitalist Progress Note ---
Date of Service May 05, 2024 Assessment & Plan (1) Acute metabolic encephalopathy: Plan: Likely hepatic encephalopathy, ammonia level quite elevated at 122 and had not moved her bowels in 5 days Somewhat improved on 05/05 after lactulose enemas and moved bowels 13 times. More alert but still quite confused and not interactive, agitated Also contributing is opioid use in the setting of cirrhosis-trying to minimize pain meds but pain control also helps her agitation NH3 level now down to 60 Keep n.p.o. until safer to take po, continue IVFs with NS at 70mL/hr HOLD lactulose enemas 3 times daily due to significant diarrhea. Follow ammonia level, LFTs, INR, CBC in the morning Monitor for airway protection Add on Zyprexa 2.5mg IM prn-did not help with agitation and was high fall risk to fall out of bed--> increased to 5mg IM q8h prn. QTc acceptable, monitor on tele Continue supportive care (2) Acute generalized abdominal pain: Plan: Epigastric pain likely 2/2 SMV and portal vein thromboses and PVT. Could potentially also have PUD/gastritis but seems less likely. Most recent EGD done in June 2023 also revealed the presence of duodenal ulcerations. She had repeat CT A/P 05/03 with no new findings but does have bowel wall edema, no perforation. Lactate is normal to only slightly elevated at 2.3 GI following and considering EGD but now with significant encephalopathy-likely hepatic, will hold off. Continue IV PPI bid, keep NPO, continue maintenance IVFs Continue Dilaudid 0.5 IV every 3 hours Cannot give NSAIDs due to being on blood thinners and with thrombocytopenia. Continue anticoagulation for thromboses (3) Portal vein thrombosis: Plan: PVT and SMV and splenic vein thromboses likely new compared to previous but has had these in the past as well Treating with Lovenox SQ while platelets are hovering around 50,000, eventually restart Coumadin Follow INR Appreciate hematology consultation-he recommends eventually putting her on Eliquis if cost affordable but has not been in the past-restart Coumadin when able to take p.o. if platelets greater than 50,000 (4) Bacteremia: Plan: Blood cultures from admission growing Streptococcus mitis-she could potentially have an oral source versus GI source. Also with abnormal UA, but urine culture mixed eliezer Repeat BCxs NGTD Consult ID appreciated Checked echocardiogram-TTE neg for veg Follow repeat blood cultures Cont ceftriaxone (5) Cirrhosis of liver: Plan: Known cirrhosis from hepatitis C with esophageal varices. Son reports she was treated for HCV previously GI service has recommended follow-up with a early childhood which I agree with. Unfortunately, [facility] has refused to accept this patient in transfer. She remains on nadolol but is n.p.o. for confusion and will hold spironolactone. With hepatic encephalopathy slightly improved now Start rifaximin and lactulose once able to take p.o. but giving OK lactulose for now-change to as needed (6) Esophageal varices: Plan: No current bleeding. Continue Nadolol once able to take p.o. and once hepatic encephalopathy improves Most recent EGD done in June 2023 reveals grade 2 varices and she also had evidence of duodenal ulcers. GI service is considering repeat EGD likely as outpt H. pylori stool ag ordered by GI to assess for cure from previous treatment-not yet collected (7) T2DM (type 2 diabetes mellitus): Plan: continue Basal and bolus insulin Plan #Right breast mass-she has declined to have this biopsied in the past, but will address once her acute issues have stabilized DVT prophylaxis-Lovenox Disposition-continued stay in PCU, condition is guarded, discussed all care with sons and brother at the bedside on 05/06. He and his brother would be her primary decision makers as she is Admission and Anticipated Discharge Date Admission Date: May 03, 2024 Subjective Pt more alert and awake today, frequently trying to sit up and climb out of bed. Pulled out IV overnight, agitated, was given IM Zyprexa which did help briefly. She had 13 liquid BMs overnight. I saw her on 3 occasions today and discussed her care with both sons and her brother on various visits. She is still mostly moaning and restless, but did tell her son earlier that her bottom was hurting from moving bowels and her lower back was hurting. Tele with NSR, normal rates I discussed her care with GI Physical Exam Constitutional: WD/WN, vitals as above Respiratory: normal respiratory effort, lungs clear to auscultation Cardiovascular: RRR, no murmur, no edema Gastrointestinal (Abdomen): Inspection/Auscultation: normal bowel sounds Percussion/Palpation: abdomen soft; no guarding and abdomen not rigid Psychiatric: Orientation: alert (more alert but not interactive); + not oriented x 3 Results & Data Results & Data Vital Signs (Past 12 Hours) Vital Signs Temp Pulse Pulse Resp BP Pulse Ox O2 Del Method 05/05/24 07:55 36.5 C 73 18 157/76 H 99 Nasal Cannula 05/04/24 23:43 36.6 C 68 12 112/72 100 Nasal Cannula 05/04/24 22:11 72 05/04/24 21:00 Nasal Cannula O2 Flow Rate 05/05/24 07:55 4 05/04/24 23:43 4.0 05/04/24 22:11 05/04/24 21:00 3 Laboratory Results CBC, BMP, LFTs, lactate, NH3, INR reviewed PG Care Time/CCT Total # of Minutes Spent Total Time Spent with Patient: Total time spent is greater than 50% in coordination of care (as documented) at patient's floor/unit and/or counseling patient: Coding Level of Care Code 90680 SUB INP/OBS CARE 3/50MIN Diagnoses Acute metabolic encephalopathy G93.41 Acute generalized abdominal pain R10.84 Portal vein thrombosis I81 Bacteremia R78.81 Cirrhosis of liver K74.60 Esophageal varices I85.00 T2DM (type 2 diabetes mellitus) E11.9
--- NOTE | 2024-05-05 08:41 | Infectious Disease Progress Nt ---
Date of Service May 05, 2024 Assessment & Plan (1) Streptococcal bacteremia: (2) Portal vein thrombosis: (3) Acute generalized abdominal pain: (4) Acute metabolic encephalopathy: Plan Problems: #Strep mitis/oralis bacteremia #Abdominal pain #HCV cirrhosis c/b esophageal varices, ascites: HCV RNA neg #Portal vein thrombosis #Thrombocytopenia Micro: 05/04 BCx x2: pending 05/03 UCx: mixed eliezer 04/30 UCx: mixed eliezer 04/29 BCx x2: Strep mitis/oralis in 1/4 bottles 04/15 L buttock wound cx: GBS 03/31 BCx x2: GBS in 4/4 bottles Abx: Ceftriaxone 05/04 - present Pip-tazo 05/02 - 05/04 63-year-old Malagasy-speaking F with h/o treated HCV with cirrhosis c/b ascites, esophageal varices, portal vein thrombosis (off Coumadin since 04/17/24 due to bleeding risk, with 03/30/24 CT showing resolution of thrombosis), venous ins ufficiency, recent admission 03/2024 with LLE cellulitis c/b GBS bacteremia s/p 2 weeks antibiotics through 04/14/24 (ceftriaxone --> amoxicillin 1 g q8h), recent hospitalization 04/16-04/17 for fever, weakness and stiff joints (BCx negative) felt to be a viral syndrome, who presented on 04/29 with 10/10 abdominal pain, found to again have portal vein thrombosis, and Strep mitis/oralis bacteremia. Pt denied fevers or chills. On presentation, she was afebrile, VSS. Labs without leukocytosis, plt 28, lactate 2.1. BCx grew Strep mitis/oralis in 1/4 bottles. She was started on pip-tazo on 05/02. Denies any prosthetics/hardware. CT AP showed partially occlusive thrombus in portal vein, superior mesenteric vein, splenic vein. Initial CT wo contrast also showed dilated duodenum and proximal jejunum, c/f chronic/low grade obstruction, and thickening of ascending colon. Repeat CTs have not shown bowel obstruction. CT 05/01 did comment on small bowel mucosa diffusely prominent with similar prominent mesenteric fat stranding and edema, favoring edema from compromised portal venous return, and infectious enteritis considered less likely. Also with large volume R pleural effusion. She was started on Protonix and Carafate for epigastric pain thought to be due to acute gastritis. Pt continues to have severe abdominal pain and is confused. Discussion: Unclear source of Strep mitis/oralis bacteremia. Per son, pt does not have dental issues, although currently unable to examine her mouth. Could be from GI source with transient bacteremia related to bowel wall thickening seen on CT? Could consider pylephlebitis given the portal vein thrombosis, but this occurs due to thrombophlebitis of small veins draining an area of infection, and CT has not shown a clear source of intra-abdominal infection such as appendicitis or diverticulitis, etc--does show some prominent bowel mucosa but favored to be related to compromised portal venous return rather than infectious enteritis. Has small to moderate volume of ascites--no paracentesis done. Does appear to be low grade bacteremia in 1/4 bottles; will follow-up repeat blood cultures. TTE on 05/04 negative for vegetations. Has remained afebrile. Pt developed leukocytosis to 16.7 on 05/03 despite starting pip-tazo on 05/02. Now resolved 05/05. Recommendations: -Continue ceftriaxone 2 g IV q24h -Follow-up sensitivities on Strep mitis/oralis -Follow-up repeat blood cultures from 05/04 -Evaluate for recent dental work, poor dentition Will continue to follow. Admission and Anticipated Discharge Date Admission Date: May 03, 2024 Subjective This patient recommendation is based on a telemedicine consult request which was completed asynchronously through chart review and information provided by the primary physician. The patient was not seen or examined today. The evaluation is consultative in nature and all patient care and treatment decisions can either be accepted or rejected by the patient's primary hospital-based treating physician using their own independent medical judgment for their patient. Unable to see by video today due to patient agitation. Time Spent Reviewing Chart: 11 - 20 minutes Agitated, confused Afebrile Leukocytosis resolved Continues on ceftriaxone TTE negative for vegetations Results & Data Vital Signs (Past 12 Hours) Vital Signs Temp Pulse Pulse Resp BP Pulse Ox O2 Del Method 05/05/24 07:55 36.5 C 73 18 157/76 H 99 Nasal Cannula 05/04/24 23:43 36.6 C 68 12 112/72 100 Nasal Cannula 05/04/24 22:11 72 05/04/24 21:00 Nasal Cannula O2 Flow Rate 05/05/24 07:55 4 05/04/24 23:43 4.0 05/04/24 22:11 05/04/24 21:00 3 Laboratory Results Short CBC 05/04/24 05/05/24 Range/Units 09:07 05:40 WBC 14.32 H 7.72 (4.8-10.8) K/ul Hgb 13.5 12.5 (12.0-16.0) g/dl Hct 39.6 36.5 L (37.0-47.0) % Plt Count 69 L 50 L (130-400) K/uL BMP 05/04/24 05/04/24 05/04/24 09:07 09:07 09:07 Sodium 139 140 Potassium 4.8 4.8 Chloride 105 Carbon Dioxide BUN Creatinine Glucose Calcium 05/04/24 05/04/24 05/04/24 09:07 09:07 09:07 Sodium Potassium Chloride 106 Carbon Dioxide 31 31 BUN 23 23 Creatinine 0.44 L Glucose Calcium 05/04/24 05/04/24 05/04/24 09:07 09:07 09:07 Sodium Potassium Chloride Carbon Dioxide BUN Creatinine 0.43 L Glucose 189 H 189 H Calcium 7.7 L 7.6 L Liver Function 05/04/24 05/04/24 05/04/24 Range/Units 09:07 09:07 09:07 Total Bilirubin 4.1 H 4.0 H (0.2-1.0) mg/dl AST 35 34 (13-39) U/L ALT 22 (7-52) U/L Alkaline Phosphatase (34-104) U/L Albumin (3.4-5.0) gm/dl 05/04/24 05/04/24 05/04/24 Range/Units 09:07 09:07 09:07 Total Bilirubin (0.2-1.0) mg/dl AST (13-39) U/L ALT 21 (7-52) U/L Alkaline Phosphatase 83 85 (34-104) U/L Albumin 2.7 L 2.8 L (3.4-5.0) gm/dl Medications Administered Current Inpatient Medications Bisacodyl (Bisacodyl 10 Mg Supp) 10 mg [place] DAILY PRN PRN Reason: Constipation Stop: 05/30/24 05:40 Dextrose (Dextrose 50% 50 Ml Syringe) 25 - 50 ml IV UD PRN; Protocol PRN Reason: Hypoglycemia Protocol Stop: 05/30/24 05:40 Enoxaparin Sodium (Enoxaparin Inj 120 Mg/0.8 Ml Syr) 120 mg SQ Q12H [facility] Stop: 06/02/24 17:14 Last Admin: 05/05/24 05:25 Dose: Not Given Glucagon (Glucagon For Inj 1 Mg Vial) 1 mg SQ UD PRN; Protocol PRN Reason: Hypoglycemia Protocol Stop: 05/30/24 05:40 Glucose (Glucose 40% Gel 15 Gm Tube) 15 - 30 gm PO UD PRN; Protocol PRN Reason: Hypoglycemia Protocol Stop: 05/30/24 05:40 Glucose (Glucose 10 Tab/Tube) 4 - 8 tab PO UD PRN; Protocol PRN Reason: Hypoglycemia Protocol Stop: 05/30/24 05:40 Hydromorphone HCl (Hydromorphone Inj 0.5 Mg/0.5 Ml Syr) 0.5 mg IV Q3H PRN PRN Reason: Pain, level 1-5 Stop: 05/17/24 16:59 Last Admin: 05/05/24 06:09 Dose: 0.5 mg Sodium Chloride (Nss) 1,000 mls @ 70 mls/hr IV .[id number] [facility] Stop: 05/06/24 10:44 Last Admin: 05/04/24 20:32 Dose: 70 mls/hr Pantoprazole Sodium (Protonix) 40 mg in 10 mls @ 5 mls/min IV BID [facility] Stop: 06/03/24 10:14 Last Admin: 05/04/24 22:10 Dose: 5 mls/min Ceftriaxone Sodium (Rocephin) 2,000 mg in 50 mls @ 100 mls/hr IV Q24H [facility] Stop: 05/18/24 09:59 Last Infusion: 05/04/24 11:25 Dose: Infused Insulin Aspart (Insulin Aspart Per Unit Charge) 0 units SC Q6 [facility] Stop: 06/01/24 05:59 Last Admin: 05/05/24 06:37 Dose: 2 units Insulin Human NPH (Insulin Human Nph) 5 units SC BID@0800,2000 [facility] Stop: 06/02/24 19:59 Last Admin: 05/04/24 22:03 Dose: 5 units Lactulose (Lactulose 200gm/700ml Wtr Enema) 200 gm NE Q8H [facility] Stop: 06/03/24 13:59 Last Admin: 05/05/24 05:25 Dose: Not Given Lactulose (Lactulose Syrup 30 Gm/45 Ml Udp) 30 gm PO BID [facility] Stop: 06/03/24 20:59 Last Admin: 05/04/24 20:50 Dose: Not Given Miscellaneous (Carbohydrates For Hypoglycemia ) 15 - 30 gm PO UD PRN PRN Reason: Hypoglycemia Protocol Stop: 05/30/24 05:40 Nadolol (Nadolol 40 Mg Tab) 20 mg PO DAILY [facility] Stop: 05/30/24 08:59 Last Admin: 05/04/24 09:38 Dose: Not Given Olanzapine (Olanzapine 10 Mg/2.1 Ml Sdv) 2.5 mg IM Q8H PRN PRN Reason: Agitation Stop: 06/04/24 08:44 Ondansetron HCl (Ondansetron Inj 2 Mg/Ml 2 Ml Vial) 4 mg IV Q6H PRN PRN Reason: Nausea And Vomiting Stop: 05/30/24 05:40 Last Admin: 05/03/24 21:43 Dose: 4 mg Rifaximin (Rifaximin 550 Mg Tablet) 550 mg PO BID [facility] Stop: 06/03/24 20:59 Last Admin: 05/04/24 21:48 Dose: Not Given
[2024-05-05 10:52] LABS: Albumin Globulin Ratio 0.8 (0.9-2); Albumin Level 2.7 gm/dl (3.4-5.0); BUN Creatinine Ratio 56.1 (10-20); Bilirubin,Total 3.3 mg/dl (0.2-1.0); Calcium 7.7 mg/dl (8.6-10.3); Creatinine Clr Calc Pharmacy 186.1 ml/min; Globulin 3.3 gm/dl (2.5-4.0); Potassium 4.2 mmol/L (3.5-5.1)
[2024-05-05 10:57] LABS: INR 1.3 (0.9-1.1)
--- NOTE | 2024-05-05 12:38 | Gastroenterology Progress Note ---
Date of Service May 05, 2024 Assessment & Plan (1) Portal vein thrombosis: Plan: -Continue anticoagulation with Lovenox and goal of transitioning to Coumadin vs Eliquis pending cost -Monitor CBC, CMP, PT/INR -Monitor for overt GI bleeding (2) Cirrhosis of liver not due to alcohol: Plan: -2 gm Na restricted diet when eating -Limit Tylenol to <2000 mg daily; avoid NSAIDs -Will need eventual repeat EGD -Continue home dose of Protonix, Nadolol. -Concern for hepatic encephalopathy vs narcotic related issue vs bacteremia or multifactorial. Ammonia 122; Would add Xifaxan and Lactulose to be titrated to a goal of 3-4 BMs daily; Appears she has been ordered a Lactulose enema as well per the primary service; Today her ammonia is normal, but confusion persists. -Will need outpatient clinical training coordinator upon discharge -Monitor daily MELD (3) Helicobacter pylori gastritis: Plan: -Awaiting stool antigen to ensure eradication from 2023 infection Admission and Anticipated Discharge Date Admission Date: May 03, 2024 Supervising Physician Co-Signing Physician Notes Patient remains critically ill. However I believe her abdomen is softer and less tender than previously. Ideally this is from improvement or anticoagulant over mesenteric vein thrombosis. She remains confused which I believe is a combination of hepatic encephalopathy and metabolic delirium encephalopathy. Platelets holding 50,000 and above. She had some rectal bleeding though she has had numerous stools I believe this probably hemorrhoidal irritation. There is been no clots or hematemesis fortunately. Continue Lovenox. Reviewed hematology's notes and appreciate. Reviewed hospitalist notes and reviewed with hospitalist. I believe the patient is showing signs of improvement. Subjective Patient is a 63 yo female with hep C cirrhosis, portal vein thrombus, & encephalopathy. She continues to be agitated, but less so now after Zyprexa. Abdomen is significantly less distended. H/H 12.5/36.5 today. BUN 23, Cr 0.41. INR 1.3. MELD 14 today. Ammonia is normal. Platelets 50. Review of Systems Review of Systems: Unobtainable due to cognitive status Physical Exam Constitutional: well developed Respiratory: normal respiratory effort Gastrointestinal (Abdomen): much softer abdomen, less distended, + bowel sounds Psychiatric: Orientation: alert and oriented x 3 Results & Data Results & Data Vital Signs (Past 12 Hours) Vital Signs Temp Pulse Resp BP Pulse Ox O2 Del Method O2 Flow Rate 05/05/24 07:55 36.5 C 73 18 157/76 H 99 Nasal Cannula 4 PG Care Time/CCT Total # of Minutes Spent Total Time Spent with Patient: Total time spent is greater than 50% in coordination of care (as documented) at patient's floor/unit and/or counseling patient: Coding Level of Care Code 94799 SUB INP/OBS CARE 3/50MIN Diagnoses Portal vein thrombosis I81 Cirrhosis of liver not due to alcohol K74.60 Helicobacter pylori gastritis K29.70; B96.81
[2024-05-05] MEDS: OLANZapine 10 MG/2.1 ML SDV IM PRN (13:28)
[2024-05-05] MEDS ORDERED: OLANZapine 10 MG/2.1 ML SDV IM PRN (19:23)
[2024-05-06 10:45] LABS: Basophils # (auto) 0.02 K/uL (0.00-0.20); Basophils % (auto) 0.3 %; Eosinophils # (auto) 0.44 K/uL (0.00-0.50); Eosinophils % (auto) 7.4 %; Hematocrit (blood only) 35.1 % (37.0-47.0); Immature Granulocytes # (auto) 0.02 K/uL (0.01-0.20); Immature Granulocytes % (auto) 0.3 %; Lymphocytes # (auto) 0.84 K/uL (1.20-3.40); Lymphocytes % (auto) 14.2 %; Mean Corpuscular Hemoglobin 31.9 pg (25.0-34.0); Mean Corpuscular Hgb Conc 34.2 g/dL (32.0-36.0); Mean Corpuscular Volume 93.4 fL (80.0-100.0); Mean Platelet Volume 11.7 fL (9.4-12.4); Monocytes # (auto) 0.49 K/uL (0.11-0.59); Monocytes % (auto) 8.3 %; Neutrophils # (auto) 4.12 K/uL (1.40-6.50); Neutrophils % (auto) 69.5 %; Platelet Count 53 K/uL (130-400); RDW Coefficient of Variation 17.3 % (11.5-14.5); RDW Standard Deviation 54.4 fL (36.4-46.3); Red Blood Count 3.76 M/uL (4.20-5.40); White Blood Count 5.93 K/ul (4.8-10.8)
[2024-05-06 10:58] LABS: Albumin Globulin Ratio 0.8 (0.9-2); Albumin Level 2.7 gm/dl (3.4-5.0); BUN Creatinine Ratio 52.6 (10-20); Bilirubin,Total 2.5 mg/dl (0.2-1.0); Calcium 7.6 mg/dl (8.6-10.3); Creatinine Clr Calc Pharmacy 202.3 ml/min; Globulin 3.2 gm/dl (2.5-4.0); Potassium 4.2 mmol/L (3.5-5.1); Total Protein 5.9 gm/dl (6.0-8.3)
[2024-05-06 11:08] LABS: INR 1.3 (0.9-1.1); Prothrombin Time 13.7 Seconds (9.0-12.0)
[2024-05-06] MEDS: ACETAMINOPHEN 1,000 MG/100 ML VIAL IV PRN (11:14)
--- NOTE | 2024-05-06 12:50 | Gastroenterology Progress Note ---
Date of Service May 06, 2024 Assessment & Plan (1) Cirrhosis of liver not due to alcohol: Plan: -MELD 13 today -Follow MELD labs -2 gm Na restricted diet when eating -Avoid NSAIDs, Tylenol limited to <2000 mg daily -Will need outpatient hepatology care -Continue PPI & beta william; eventually when more stable will need to update EGD -Continue Lactulose & Xifaxan; avoid constipation (2) Portal vein thrombosis: Plan: -Continue anticoagulation as previously recommended; no active GI bleeding at this time. platelets 53 today. (3) Helicobacter pylori gastritis: Plan: Stool study to ensure eradication is pending. Admission and Anticipated Discharge Date Admission Date: May 03, 2024 Supervising Physician Co-Signing Physician Notes Patient considerably improved today. Certainly has less abdominal pain. She is awake. Brother was at the bedside. Reviewed what we currently have been treating including hepatic encephalopathy and mesenteric vein thrombosis. Reviewed the balancing act between anticoagulation for mesenteric vein thrombosis and the significant risk of bleeding this patient with varices portal hypertension and thrombocytopenia. However she has demonstrated tolerance of anticoagulation previously and she is shown a tendency towards recurrent thrombosis with stopping anticoagulation. In the absence of significant hemorrhage I would continue anticoagulation long-term. Subjective Patient is a 63 yo female with hep C cirrhosis & portal vein thrombus. While confused, she seems significantly less agitated and more comfortable than previously. H/H 12.0/35.1. Stools are documented brown. BUN 20/Cr 0.38. MELD 13. Physical Exam Gastrointestinal (Abdomen): Inspection/Auscultation: abdomen normal to inspection Percussion/Palpation: abdomen soft; abdomen nontender Results & Data Results & Data Vital Signs (Past 12 Hours) Vital Signs Temp Pulse Resp BP Pulse Ox O2 Del Method O2 Flow Rate 05/06/24 11:28 36.5 C 68 18 118/74 97 Nasal Cannula 2 05/06/24 06:58 36.5 C 67 18 110/65 96 Nasal Cannula 2 05/06/24 03:40 36.5 C 66 16 119/64 97 Nasal Cannula 2.0 PG Care Time/CCT Total # of Minutes Spent Total Time Spent with Patient: Total time spent is greater than 50% in coordination of care (as documented) at patient's floor/unit and/or counseling patient: Coding Level of Care Code 60535 SUB INP/OBS CARE 3/50MIN Diagnoses Cirrhosis of liver not due to alcohol K74.60 Portal vein thrombosis I81 Helicobacter pylori gastritis K29.70; B96.81
[2024-05-06] MEDS ORDERED: Nursing to Pharmacy Communication SCH (13:00)
[2024-05-06] MEDS ORDERED: LACTULOSE 200GM/700ML WTR ENEMA PR PRN (13:21)
--- NOTE | 2024-05-06 13:22 | Hospitalist Progress Note ---
Date of Service May 06, 2024 Assessment & Plan (1) Acute metabolic encephalopathy: Plan: With severe hepatic encephalopathy, ammonia level quite elevated at 122 and had not moved her bowels in 5 days, was extremely lethargic and moaning and thrashing, significantly confused on 05/04 Slowly improving after lactulose enemas and moving bowels numerous times-more alert and able to answer some questions, but still confused and restless at times. Able to eat now and walk with assistance Also contributing is opioid use in the setting of cirrhosis-trying to minimize pain meds but pain control also helps her agitation NH3 level was down to 60 and now back up to 105 -Discontinue IV fluids and advance diet to liquids -Continue lactulose 30 g p.o. twice daily and enema lactulose if not able to take p.o. -Follow ammonia level in the morning -Continue as needed Zyprexa 5mg IM prn- QTc acceptable, monitor on tele -Continue supportive care (2) Acute generalized abdominal pain: Plan: Epigastric pain likely 2/2 SMV and portal vein thromboses and PVT. Could potentially also have PUD/gastritis but seems less likely. Most recent EGD done in June 2023 also revealed the presence of duodenal ul cerations. She had repeat CT A/P 05/03 with no new findings but does have bowel wall edema, no perforation. 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 if platelets greater than 50,000 (4) Bacteremia: Plan: Blood cultures from admission growing Streptococcus mitis resistant to tetracycline and erythromycin-she could potentially have an oral source versus GI source. Also with abnormal UA, but urine culture mixed eliezer Repeat BCxs remain NGTD-continue to follow Consult ID appreciated Checked echocardiogram-TTE neg for veg -Cont ceftriaxone and consider narrowing coverage -Await further ID input (5) Cirrhosis of liver: Plan: Known cirrhosis from hepatitis C with esophageal varices. Son reports she was treated for HCV previously With hepatic encephalopathy slowly improving -Started rifaximin and lactulose -Will likely resume spironolactone and perhaps Lasix on 05/07 -Needs outpatient hepatology follow-up -Continue nadolol (6) Esophageal varices: Plan: No current bleeding. Continue Nadolol once able to take p.o. and once hepatic encephalopathy improves Most recent EGD done in June 2023 reveals grade 2 varices and she also had evidence of duodenal ulcers. GI service is considering repeat EGD likely as outpt H. pylori stool ag ordered by GI to assess for cure from previous treatment- pending (7) T2DM (type 2 diabetes mellitus): Plan: continue Basal and bolus insulin Plan #Right breast mass-she has declined to have this biopsied in the past, but will address once her acute issues have stabilized DVT prophylaxis-Lovenox Disposition-continued stay in PCU, condition is guarded but slightly improved, discussed care with brother at the bedside on 05/06. The patient's 2 sons would be her primary decision makers as she is Admission and Anticipated Discharge Date Admission Date: May 03, 2024 Subjective Patient much more mentally clear today but remains confused. She was able to ambulate to the bathroom with her brother support. She was awake and alert enough to tolerate a liquids diet today without aspiration. She reports some pain in the lower abdomen and received a lactulose enema and did move her bowels once this morning. Otherwise, she frequently lays back down and moans. Telemetry with normal sinus rhythm with rates in the 60s to 70s Physical Exam Constitutional: WD/WN, vitals as above + morbidly obese Respiratory: normal respiratory effort, lungs clear to auscultation Cardiovascular: RRR, no murmur, no edema Gastrointestinal (Abdomen): Inspection/Auscultation: + abdomen distended (Moderately distended) and normal bowel sounds Percussion/Palpation: + abdomen tender (mild in lower abdomen without guarding) and abdomen soft; no guarding and abdomen not rigid Psychiatric: Orientation: alert and oriented to person; + not oriented to place and + not oriented to time Results & Data Results & Data Vital Signs (Past 12 Hours) Vital Signs Temp Pulse Resp BP Pulse Ox O2 Del Method O2 Flow Rate 05/06/24 11:28 36.5 C 68 18 118/74 97 Nasal Cannula 2 05/06/24 06:58 36.5 C 67 18 110/65 96 Nasal Cannula 2 05/06/24 03:40 36.5 C 66 16 119/64 97 Nasal Cannula 2.0 Laboratory Results CBC, CMP, ammonia level, lactate, magnesium, INR reviewed PG Care Time/CCT Total # of Minutes Spent Total Time Spent with Patient: Total time spent is greater than 50% in coordination of care (as documented) at patient's floor/unit and/or counseling patient: Coding Level of Care Code 02416 SUB INP/OBS CARE 2/35MIN Diagnoses Acute metabolic encephalopathy G93.41 Acute generalized abdominal pain R10.84 Portal vein thrombosis I81 Bacteremia R78.81 Cirrhosis of liver K74.60 Esophageal varices I85.00 T2DM (type 2 diabetes mellitus) E11.9
[2024-05-06] MEDS: INSULIN ASPART PER UNIT CHARGE SC SCH (17:02)
[2024-05-06] MEDS: HYDROmorphone INJ 0.5 MG/0.5 ML SYR IV PRN (21:46)
[2024-05-07 06:14] LABS: Basophils # (auto) 0.03 K/uL (0.00-0.20); Basophils % (auto) 0.6 %; Eosinophils % (auto) 8.1 %; Hematocrit (blood only) 36.4 % (37.0-47.0); Hemoglobin 12.1 g/dl (12.0-16.0); Immature Granulocytes # (auto) 0.04 K/uL (0.01-0.20); Immature Granulocytes % (auto) 0.8 %; Lymphocytes # (auto) 0.62 K/uL (1.20-3.40); Lymphocytes % (auto) 12.5 %; Mean Corpuscular Hemoglobin 31.3 pg (25.0-34.0); Mean Corpuscular Hgb Conc 33.2 g/dL (32.0-36.0); Mean Corpuscular Volume 94.3 fL (80.0-100.0); Mean Platelet Volume 11.3 fL (9.4-12.4); Monocytes # (auto) 0.44 K/uL (0.11-0.59); Monocytes % (auto) 8.9 %; Neutrophils # (auto) 3.42 K/uL (1.40-6.50); Neutrophils % (auto) 69.1 %; Platelet Count 56 K/uL (130-400); RDW Coefficient of Variation 17.4 % (11.5-14.5); RDW Standard Deviation 56.2 fL (36.4-46.3); Red Blood Count 3.86 M/uL (4.20-5.40); White Blood Count 4.95 K/ul (4.8-10.8)
[2024-05-07 06:34] LABS: Albumin Level 2.6 gm/dl (3.4-5.0); Bilirubin,Total 2.4 mg/dl (0.2-1.0); Calcium 7.6 mg/dl (8.6-10.3); Magnesium 1.8 mg/dl (1.7-2.4)
[2024-05-07 06:37] LABS: INR 1.3 (0.9-1.1); Prothrombin Time 13.7 Seconds (9.0-12.0)
[2024-05-07 06:40] LABS: Albumin Globulin Ratio 0.8 (0.9-2); BUN Creatinine Ratio 34.9 (10-20); Creatinine Clr Calc Pharmacy 182.6 ml/min; Globulin 3.3 gm/dl (2.5-4.0); Total Protein 5.9 gm/dl (6.0-8.3)
--- NOTE | 2024-05-07 08:41 | Infectious Disease Progress Nt ---
Date of Service May 07, 2024 Assessment & Plan (1) Streptococcal bacteremia: (2) Portal vein thrombosis: (3) Acute generalized abdominal pain: (4) Acute metabolic encephalopathy: Plan Problems: #Strep mitis/oralis bacteremia #Abdominal pain #HCV cirrhosis c/b esophageal varices, ascites: HCV RNA neg #Portal vein thrombosis #Thrombocytopenia Micro: 05/04 BCx x2: NGTD 05/03 UCx: mixed eliezer 04/30 UCx: mixed eliezer 04/29 BCx x2: Strep mitis/oralis in 1/4 bottles 04/15 L buttock wound cx: GBS 03/31 BCx x2: GBS in 4/4 bottles Abx: Ceftriaxone 05/04 - present Pip-tazo 05/02 - 05/04 63-year-old [place]-speaking F with h/o treated HCV with cirrhosis c/b ascites, esophageal varices, portal vein thrombosis (off Coumadin since 04/17/24 due to bleeding risk, with 03/30/24 CT showing resolution of thrombosis), venous insuff iciency, recent admission 03/2024 with LLE cellulitis c/b GBS bacteremia s/p 2 weeks antibiotics through 04/14/24 (ceftriaxone --> amoxicillin 1 g q8h), recent hospitalization 04/16-04/17 for fever, weakness and stiff joints (BCx negative) felt to be a viral syndrome, who presented on 04/29 with 10/10 abdominal pain, found to again have portal vein thrombosis, and Strep mitis/oralis bacteremia. Pt denied fevers or chills. On presentation, she was afebrile, VSS. Labs without leukocytosis, plt 28, lactate 2.1. BCx grew Strep mitis/oralis in 1/4 bottles. She was started on pip-tazo on 05/02. Denies any prosthetics/hardware. CT AP showed partially occlusive thrombus in portal vein, superior mesenteric vein, splenic vein. Initial CT wo contrast also showed dilated duodenum and proximal jejunum, c/f chronic/low grade obstruction, and thickening of ascending colon. Repeat CTs have not shown bowel obstruction. CT 05/01 did comment on small bowel mucosa diffusely prominent with similar prominent mesenteric fat stranding and edema, favoring edema from compromised portal venous return, and infectious enteritis considered less likely. Also with large volume R pleural effusion. She was started on Protonix and Carafate for epigastric pain thought to be due to acute gastritis. Pt continues to have severe abdominal pain and is confused. Discussion: Unclear source of Strep mitis/oralis bacteremia. Per son, pt does not have dental issues, although unable to examine her mouth. Could be from GI source with transient bacteremia related to bowel wall thickening seen on CT? Could consider pylephlebitis given the portal vein thrombosis, but this occurs due to thrombophlebitis of small veins draining an area of infection, and CT has not shown a clear source of intra-abdominal infection such as appendicitis or diverticulitis, etc--does show some prominent bowel mucosa but favored to be related to compromised portal venous return rather than infectious enteritis. Has small to moderate volume of ascites--no paracentesis done. Does appear to be low grade bacteremia in 1/4 bottles; repeat blood cultures are NGTD. TTE on 05/04 negative for vegetations. Has remained afebrile. Pt developed leukocytosis to 16.7 on 05/03 despite starting pip-tazo on 05/02. Now resolved 05/05. Recommendations: -Would complete a 14 day course of antibiotics for Strep mitis/oralis bacteremia from date of cleared blood cultures 05/04-05/17. Can continue ceftriaxone 2 g IV q24h while inpatient, then transition to amoxicillin 1 g PO TID if she discharges prior to completing the course. -Can obtain a set of blood cultures ~1 week after completing above antibiotics to ensure blood cultures remain clear -If pt undergoes paracentesis here, would send fluid for cell counts, gram stain, culture Will sign off. Admission and Anticipated Discharge Date Admission Date: May 03, 2024 Subjective This patient recommendation is based on a telemedicine consult request which was completed asynchronously through chart review and information provided by the primary physician. The patient was not seen or examined today. The evaluation is consultative in nature and all patient care and treatment decisions can either be accepted or rejected by the patient's primary hospital-based treating physician using their own independent medical judgment for their patient. Time Spent Reviewing Chart: 11 - 20 minutes No acute events Afebrile without leukocytosis Results & Data Vital Signs (Past 12 Hours) Vital Signs Temp Pulse Resp BP BP Pulse Ox O2 Del Method 05/07/24 08:00 36.5 C 77 20 119/72 147/74 H 96 Nasal Cannula 05/07/24 02:33 36.7 C 82 18 136/81 95 Nasal Cannula 05/07/24 00:00 Nasal Cannula 05/06/24 23:34 36.5 C 79 18 113/65 95 Nasal Cannula O2 Flow Rate 05/07/24 08:00 2 05/07/24 02:33 2.0 05/07/24 00:00 2 05/06/24 23:34 2.0 Laboratory Results Short CBC 05/06/24 05/07/24 Range/Units 10:28 05:35 WBC 5.93 4.95 (4.8-10.8) K/ul Hgb 12.0 12.1 (12.0-16.0) g/dl Hct 35.1 L 36.4 L (37.0-47.0) % Plt Count 53 L 56 L (130-400) K/uL BMP 05/06/24 05/07/24 10:28 05:35 Sodium 145 138 Potassium 4.2 4.0 Chloride 111 H 108 H Carbon Dioxide 30 29 BUN 20 15 Creatinine 0.38 L 0.43 L Glucose 163 H 214 H Calcium 7.6 L 7.6 L Liver Function 05/06/24 05/07/24 Range/Units 10:28 05:35 Total Bilirubin 2.5 H 2.4 H (0.2-1.0) mg/dl AST 42 H 40 H (13-39) U/L ALT 26 25 (7-52) U/L Alkaline Phosphatase 73 80 (34-104) U/L Albumin 2.7 L 2.6 L (3.4-5.0) gm/dl Medications Administered Current Inpatient Medications Bisacodyl (Bisacodyl 10 Mg Supp) 10 mg SD DAILY PRN PRN Reason: Constipation Stop: 05/30/24 05:40 Dextrose (Dextrose 50% 50 Ml Syringe) 25 - 50 ml IV UD PRN; Protocol PRN Reason: Hypoglycemia Protocol Stop: 05/30/24 05:40 Enoxaparin Sodium (Enoxaparin Inj 120 Mg/0.8 Ml Syr) 120 mg SQ Q12H JOSE DAVID Stop: 06/02/24 17:14 Last Admin: 05/07/24 06:33 Dose: 120 mg Glucagon (Glucagon For Inj 1 Mg Vial) 1 mg SQ UD PRN; Protocol PRN Reason: Hypoglycemia Protocol Stop: 05/30/24 05:40 Glucose (Glucose 40% Gel 15 Gm Tube) 15 - 30 gm PO UD PRN; Protocol PRN Reason: Hypoglycemia Protocol Stop: 05/30/24 05:40 Glucose (Glucose 10 Tab/Tube) 4 - 8 tab PO UD PRN; Protocol PRN Reason: Hypoglycemia Protocol Stop: 05/30/24 05:40 Hydromorphone HCl (Hydromorphone Inj 0.5 Mg/0.5 Ml Syr) 0.25 mg IV Q3H PRN PRN Reason: Moderate Pain (Scale 4, 5, 6) Stop: 05/17/24 16:59 Last Admin: 05/07/24 03:47 Dose: 0.25 mg Pantoprazole Sodium (Protonix) 40 mg in 10 mls @ 5 mls/min IV BID [facility] Stop: 06/03/24 10:14 Last Admin: 05/06/24 19:56 Dose: 5 mls/min Ceftriaxone Sodium (Rocephin) 2,000 mg in 50 mls @ 100 mls/hr IV Q24H [facility] Stop: 05/18/24 09:59 Last Infusion: 05/06/24 15:13 Dose: Infused Acetaminophen (Ofirmev) 1,000 mg in 100 mls @ 400 mls/hr IV Q8H PRN PRN Reason: Pain or Fever Stop: 05/09/24 11:03 Last Infusion: 05/06/24 15:13 Dose: Infused Insulin Aspart (Insulin Aspart Per Unit Charge) 0 units SC ACHS [facility] Stop: 06/05/24 16:29 Last Admin: 05/06/24 21:17 Dose: Not Given Insulin Human NPH (Insulin Human Nph) 5 units SC BID@0800,2000 [facility] Stop: 06/02/24 19:59 Last Admin: 05/06/24 19:54 Dose: 5 units Lactulose (Lactulose Syrup 30 Gm/45 Ml Udp) 30 gm PO BID [facility] Stop: 06/03/24 20:59 Last Admin: 05/06/24 19:57 Dose: 30 gm Lactulose (Lactulose 200gm/700ml Wtr Enema) 200 gm SD Q8H PRN PRN Reason: no BM and unable to take po Stop: 06/03/24 13:59 Miscellaneous (Carbohydrates For Hypoglycemia ) 15 - 30 gm PO UD PRN PRN Reason: Hypoglycemia Protocol Stop: 05/30/24 05:40 Nadolol (Nadolol 40 Mg Tab) 20 mg PO DAILY [facility] Stop: 05/30/24 08:59 Last Admin: 05/06/24 10:56 Dose: Not Given Olanzapine (Olanzapine 10 Mg/2.1 Ml Sdv) 5 mg IM Q8H PRN PRN Reason: Agitation Stop: 06/04/24 08:44 Ondansetron HCl (Ondansetron Inj 2 Mg/Ml 2 Ml Vial) 4 mg IV Q6H PRN PRN Reason: Nausea And Vomiting Stop: 05/30/24 05:40 Last Admin: 05/03/24 21:43 Dose: 4 mg Rifaximin (Rifaximin 550 Mg Tablet) 550 mg PO BID [facility] Stop: 06/03/24 20:59 Last Admin: 05/06/24 19:55 Dose: 550 mg
[2024-05-07] MEDS: SPIRONOLACTONE 25 MG TAB PO SCH (11:01)
--- NOTE | 2024-05-07 13:20 | Hospitalist Progress Note ---
Date of Service May 07, 2024 Assessment & Plan (1) Acute metabolic encephalopathy: Plan: With severe hepatic encephalopathy, ammonia level quite elevated at 122 and had not moved her bowels in 5 days, was extremely lethargic and moaning and thrashing, significantly confused on 05/04 Now much improved after lactulose enemas and moving bowels numerous times Also contributing is opioid use in the setting of cirrhosis-trying to minimize pain meds but pain control also helps her agitation NH3 level now normal and mentation much improved but not yet back to baseline Not taking nearly as much dilaudid and is moving bowels, eating, ambulating w/ assistance -advance diet to low sodium/solids -Continue lactulose 30 g p.o. twice daily and enema lactulose if not able to take p.o. -Follow ammonia level in the morning -Continue as needed Zyprexa 5mg IM prn- QTc acceptable, monitor on tele-not needed -Continue supportive care -dc IV dilaudid to avoid use (2) Acute generalized abdominal pain: Plan: Epigastric pain likely 2/2 SMV and portal vein thromboses and PVT. Could potentially also have PUD/gastritis but seems less likely. Most recent EGD done in June 2023 also revealed the presence of duodenal ulcerations. She had repeat CT A/P 05/03 with no new findings but does have bowel wall edema, no perforation. Lactate is normal to only slightly elevated at 2.3 and then down to 1.7 GI following and considered EGD but now with significant encephalopathy-canceled Pain much improved but now with abdominal distention and likely ascites causing some discomfort -change Protonix to po from IV bid -Advance diet to low sodium -Continue lactulose for bowel regimen -dc Dilaudid and continue tylenol and add prn oxycodone prn pain -Continue anticoagulation for thromboses -If ascites worsens, could perform paracentesis on Friday-resume spironolactone (3) Portal vein thrombosis: Plan: PVT and SMV and splenic vein thromboses likely new compared to previous but has had these in the past as well -Continue treating with Lovenox SQ and hgb and platelets stable Discussed with Dr. Ray-restart Coumadin at 10mg po daily x 3 days and then back to usual dose 7.5mg liekly after that on 05/10. Stop Lovenox when INR close to therapeutic to aovid bleeding -Follow INR -Appreciate hematology consultation (4) Bacteremia: Plan: Blood cultures from admission growing Streptococcus mitis resistant to tetracycline and erythromycin-she could potentially have an oral source versus GI source. Also with abnormal UA, but urine culture mixed eliezer Repeat BCxs remain NGTD-continue to follow Consult ID appreciated Checked echocardiogram-TTE neg for veg -Cont ceftriaxone and change to po amox on discharge through total 14 days (5) Cirrhosis of liver: Plan: Known cirrhosis from hepatitis C with esophageal varices. Son reports she was treated for HCV previously With hepatic encephalopathy slowly improving -Started rifaximin and lactulose - resume spironolactone 25mg and increase to 50mg for tomorrow if BP can tolerate, add lasix likely after that -Needs outpatient hepatology follow-up -Continue nadolol -may need paracentesis before discharge (6) Esophageal varices: Plan: No current bleeding. Continue Nadolol once able to take p.o. and once hepatic encephalopathy improves Most recent EGD done in June 2023 reveals grade 2 varices and she also had evidence of duodenal ulcers. GI service is considering repeat EGD likely as outpt H. pylori stool ag ordered by GI to assess for cure from previous treatment- pending (7) T2DM (type 2 diabetes mellitus): Plan: continue Basal and bolus insulin Plan #Right breast mass-highly suspicious for malignancy on breast US nad mammo in 09/2023. I discussed with pt and family and they are under the impression that it is NOT cancer and was "stable" and planned on repeat breast imaging in 6 months- I do not see that this is even scheduled. I will get her set up with breast imaging as an outpt prior to discharge-sent a message to Dr. [facility] DVT prophylaxis-Lovenox Disposition-continued stay in PCU, condition is improving, discussed care with brother, son at the bedside on 05/07. The patient's 2 sons would be her primary decision makers as she is Admission and Anticipated Discharge Date Admission Date: May 03, 2024 Subjective Much improved today, interactive, says has some upper left abd pain but not severe and only took tylenol today. Later into evening took one dose oxycodone. Moving bowels, eating, and ambulating with assistance to bathroom. She asks about her care and what happened, doesn't remember anything from the past few days Tele with NSR normal rates Physical Exam Constitutional: WD/WN, vitals as above + morbidly obese Respiratory: normal respiratory effort, lungs clear to auscultation Cardiovascular: RRR, no murmur, no edema Gastrointestinal (Abdomen): Inspection/Auscultation: + abdomen distended (Moderately distended) and normal bowel sounds Percussion/Palpation: + abdomen tender (mild in upper abdomen without guarding) and abdomen soft; no guarding and abdomen not rigid Psychiatric: Orientation: alert, oriented to person, oriented to place and cooperative; + not oriented to time Results & Data Results & Data Vital Signs (Past 12 Hours) Vital Signs Temp Pulse Pulse Resp BP BP Pulse Ox 05/07/24 12:00 36.6 C 70 18 135/66 97 05/07/24 11:18 05/07/24 10:17 85 05/07/24 08:00 36.5 C 77 20 119/72 147/74 H 96 05/07/24 02:33 36.7 C 82 18 136/81 95 O2 Del Method O2 Flow Rate 05/07/24 12:00 Nasal Cannula 2 05/07/24 11:18 Room Air 05/07/24 10:17 05/07/24 08:00 Nasal Cannula 2 05/07/24 02:33 Nasal Cannula 2.0 Laboratory Results CBC. CMP, INR, ammonia level reviewed blood cxs reviewed PG Care Time/CCT Total # of Minutes Spent Total Time Spent with Patient: Total time spent is greater than 50% in coordination of care (as documented) at patient's floor/unit and/or counseling patient: Coding Level of Care Code 86446 SUB INP/OBS CARE 3/50MIN Diagnoses Acute metabolic encephalopathy G93.41 Acute generalized abdominal pain R10.84 Portal vein thrombosis I81 Bacteremia R78.81 Cirrhosis of liver K74.60 Esophageal varices I85.00 T2DM (type 2 diabetes mellitus) E11.9
[2024-05-07] MEDS: WARFARIN SOD 10 MG TAB PO SCH (15:37)
[2024-05-07] MEDS: ACETAMINOPHEN 325 MG TAB PO PRN (15:37)
[2024-05-07] MEDS: oxyCODONE HCL IR 5 MG TAB (IMMEDIATE RELEASE) PO PRN (16:28)
[2024-05-07] MEDS: PANTOprazole 40 MG TAB PO SCH (20:41)
[2024-05-08 06:04] LABS: Basophils # (auto) 0.02 K/uL (0.00-0.20); Basophils % (auto) 0.4 %; Eosinophils # (auto) 0.59 K/uL (0.00-0.50); Eosinophils % (auto) 10.5 %; Hematocrit (blood only) 37.3 % (37.0-47.0); Hemoglobin 12.7 g/dl (12.0-16.0); Immature Granulocytes # (auto) 0.05 K/uL (0.01-0.20); Immature Granulocytes % (auto) 0.9 %; Mean Corpuscular Hemoglobin 31.4 pg (25.0-34.0); Mean Corpuscular Volume 92.1 fL (80.0-100.0); Monocytes # (auto) 0.51 K/uL (0.11-0.59); Monocytes % (auto) 9.1 %; Neutrophils # (auto) 3.55 K/uL (1.40-6.50); Neutrophils % (auto) 63.1 %; Platelet Count 61 K/uL (130-400); RDW Coefficient of Variation 18.1 % (11.5-14.5); RDW Standard Deviation 57.1 fL (36.4-46.3); Red Blood Count 4.05 M/uL (4.20-5.40); White Blood Count 5.62 K/ul (4.8-10.8)
[2024-05-08 06:20] LABS: Albumin Globulin Ratio 0.7 (0.9-2); Albumin Level 2.5 gm/dl (3.4-5.0); BUN Creatinine Ratio 33.3 (10-20); Bilirubin,Total 2.2 mg/dl (0.2-1.0); Calcium 7.6 mg/dl (8.6-10.3); Creatinine Clr Calc Pharmacy 202.8 ml/min; Globulin 3.4 gm/dl (2.5-4.0); Total Protein 5.9 gm/dl (6.0-8.3)
[2024-05-08 06:32] LABS: INR 1.5 (0.9-1.1); Prothrombin Time 15.4 Seconds (9.0-12.0)
[2024-05-08] MEDS: SPIRONOLACTONE 25 MG TAB PO SCH (09:20)
--- NOTE | 2024-05-08 12:05 | Gastroenterology Progress Note ---
Date of Service May 08, 2024 Assessment & Plan (1) Acute metabolic encephalopathy: Plan: Hepatic and metabolic encephalopathy ,better, continue lactulose. Ideally would get Xifaxan 550 twice daily. However again insurance coverage may be an issue. (2) Esophageal varices: Plan: History of grade 2 varices. No clinical bleeding on anticoagulation. Platelets 60,000 or so (3) Portal vein thrombosis: Plan: Portal vein thrombosis but also associated mesenteric vein thrombosis. Mesenteric vein thrombosis poses a higher risk due to the risk of small bowel infarction. However portal vein thrombosis also potential concern due to decreased hepatic function. Patient at risk of anticoagulation. However she is demonstrated recurrent significant thrombosis with stopping anticoagulation. Reviewed this in detail with the sons at the bedside. Plan Consider switch to oral anticoagulation from Lovenox. Lactulose and Xifaxan at discharge. Continue Nadolol for variceal bleeding prophylaxis. Patient should establish hepatology care. Admission and Anticipated Discharge Date Admission Date: May 03, 2024 Subjective Portal mesenteric vein thrombosis, hepatic encephalopathy Patient sitting up at the edge of the bed today eating. Still notes abdominal discomfort. Patient significantly improved over situation 3 to 4 days ago Signs at the bedside reviewed current plan for the portal and mesenteric vein thrombosis I believe at this time the patient probably would be switched to oral anticoagulation. Unclear whether she will get approval of an oral DOAC. Has tolerated Coumadin. Patient should establish hepatology care. Physical Exam Physical Exam: Sitting up at the edge of the bed. Appears significantly improved and less confused Still noting abdominal pain. Results & Data Results & Data Vital Signs (Past 12 Hours) Vital Signs Temp Pulse Resp BP Pulse Ox O2 Del Method 05/08/24 07:37 36.6 C 97 H 18 148/72 H 95 Nasal Cannula 05/08/24 03:37 36.5 C 83 22 157/87 H 94 Nasal Cannula PG Care Time/CCT Total # of Minutes Spent Total Time Spent with Patient: Total time spent is greater than 50% in coordination of care (as documented) at patient's floor/unit and/or counseling patient: Coding Level of Care Code 08657 SUB INP/OBS CARE 04/17MIN Diagnoses Acute metabolic encephalopathy G93.41 Esophageal varices I85.00 Portal vein thrombosis I81
--- NOTE | 2024-05-08 13:48 | Hospitalist Progress Note ---
Date of Service May 08, 2024 Assessment & Plan (1) Acute metabolic encephalopathy: Plan: With severe hepatic encephalopathy developing through the weekend of 05/01-05/03, ammonia level quite elevated at 122 and had not moved her bowels in 5 days, was extremely lethargic and moaning and thrashing, significantly confused. Now much improved after lactulose enemas and moving bowels numerous times daily and NH3 level back to normal at 60. She is clearly mentating now, ambulating with assistance, and eating Also contributing was frequent opioid use in the setting of cirrhosis -Continue lactulose 30 g p.o. twice daily and enema lactulose if not able to take p.o. -can dc prn Zyprexa -Continue supportive care -minimize opioid use -started Rifaximin-may need prior auth for this as otupt (2) Acute generalized abdominal pain: Plan: Epigastric pain likely 2/2 acute SMV thrombosis. Also with perhaps more chronic splenic vein thrombosis and PVT. Could potentially also have PUD/gastritis but seems less likely. Most recent EGD done in June 2023 also revealed the presence of duodenal ulcerations. Repeat H. pylori stool ag here negative. She had repeat CT A/P 05/03 with no new findings but does have bowel wall edema, no perforation, ascites, and same thrombi. Lactate is normal to only slightly elevated at 2.3 and then down to 1.7 GI following and considered EGD but now with significant encephalopathy-canceled Pain much improved but now with abdominal distention and likely ascites causing some discomfort -continue Protonix po bid -Continue lactulose for bowel regimen -continue tylenol and prn oxycodone -Continue anticoagulation for thromboses -given worsening ascites--> plan for paracentesis on Friday with cell counts, Gram stain, and culture -resumed spironolactone and add lasix (3) Portal vein thrombosis: Plan: PVT and SMV and splenic vein thromboses likely new compared to previous but has had these in the past as well It is no longer thought to be true that patients with cirrhosis and elevated INR are "auto-anticoagulated" She clearly developed her SMV thrombosis when off anticoagulation recently -Continue treating with Lovenox SQ - hgb and platelets stable -Discussed with Dr. Ray-restarted Coumadin at 10mg po daily on 05/07 x 3 days and then back to usual dose 7.5mg likely after that on 05/10. -Stop Lovenox when INR close to therapeutic to avoid bleeding -Follow INR daily-now 1.5 -Appreciate hematology consultation (4) Bacteremia: Plan: Blood cultures from admission growing Streptococcus mitis resistant to tetracycline and erythromycin-she could potentially have an oral source versus GI source. Also with abnormal UA, but urine culture mixed eliezer Repeat BCxs remain NGTD-continue to follow Consult ID appreciated Checked echocardiogram-TTE neg for veg -ID recommends to complete a 14 day course of antibiotics for Strep mitis/oralis bacteremia from date of cleared blood cultures 05/04-05/17. Can continue ceftriaxone 2 g IV q24h while inpatient, then transition to amoxicillin 1 g PO TID if she discharges prior to completing the course. -Can obtain a set of blood cultures ~1 week after completing above antibiotics to ensure blood cultures remain clear -when pt undergoes paracentesis here, would send fluid for cell counts, gram stain, culture (5) Cirrhosis of liver: Plan: Known cirrhosis from hepatitis C with esophageal varices. She was treated for HCV previously in 2020 as per review of GI notes. HCV antibdy here is positive but viral load undetectable With hepatic encephalopathy now resolved. Follows with [facility] but no recent note s to review. I do not believe she has been seen by Hepatology -needs outpt f/u with Hepatology as recommended by GI this hospitalization-asked Nurse Navigator to arrange -Started rifaximin and lactulose -increased spironolactone to 50mg and will add lasix 20mg daily (years ago she was on aldactone 100mg and lasix 40mg daily-not sure when her doses were decreased/stopped) -Continue nadolol for portal HTN with known varices -needs paracentesis on Friday (6) T2DM (type 2 diabetes mellitus): Plan: continue Basal and bolus insulin (7) Lump of right breast: Plan: Right breast mass-highly suspicious for malignancy on breast US and mammo in 09/2023. She was offered biopsy but declined at that time. I discussed with pt and family and they are under the impression that it is NOT cancer and was "stable" and planned on repeat breast imaging in 6 months-I do not see that this is even scheduled. Pt and family now agreeable to repeat breast imaging and possible biopsy I will get her set up with breast imaging as an outpt prior to discharge-sent a message to Dr. Booth [facility] Plan DVT prophylaxis-Lovenox Disposition-continued stay, downgrade to med/surg, condition is improving, disc ussed care with son Sheyla at the bedside on 05/08. Plan for dc to rehab possibly at [facility] on Fri-Friday after paracentesis The patient's 2 sons would be her primary decision makers as she is Admission and Anticipated Discharge Date Admission Date: May 03, 2024 Subjective Pt is the most lucid I have seen her all week. C/o tightness in her upper abdomen that is constant. She fell while her son was helping her to the bathroom today and scraped her left flank on side of the bed. Did not hit her head and no other injury or pain anywhere. She is moving her bowels frequently. Tele with NSR normal rates Physical Exam Constitutional: WD/WN, vitals as above + morbidly obese Respiratory: normal respiratory effort, lungs clear to auscultation Cardiovascular: RRR, no murmur, no edema Gastrointestinal (Abdomen): Inspection/Auscultation: + abdomen distended (Moderately-severely distended) and normal bowel sounds Percussion/Palpation: + abdomen tender (mild in upper abdomen without guarding) and abdomen soft; no guarding and abdomen not rigid Psychiatric: Orientation: alert, oriented x 3 and cooperative Results & Data Results & Data Vital Signs (Past 12 Hours) Vital Signs Temp Pulse Pulse Resp BP Pulse Ox O2 Del Method 05/08/24 12:00 139/71 05/08/24 09:00 Room Air 05/08/24 09:00 81 05/08/24 07:37 36.6 C 97 H 18 148/72 H 95 Nasal Cannula 05/08/24 03:37 36.5 C 83 22 157/87 H 94 Nasal Cannula Laboratory Results CBC< CMP, NH3, blood cxs reviewed PG Care Time/CCT Total # of Minutes Spent Total Time Spent with Patient: Total time spent is greater than 50% in coordination of care (as documented) at patient's floor/unit and/or counseling patient: Coding Level of Care Code 44893 SUB INP/OBS CARE 3/50MIN Diagnoses Acute metabolic encephalopathy G93.41 Acute generalized abdominal pain R10.84 Portal vein thrombosis I81 Bacteremia R78.81 Cirrhosis of liver K74.60 T2DM (type 2 diabetes mellitus) E11.9 Lump of right breast N63.10
[2024-05-08] MEDS: FUROSEMIDE 20 MG TAB PO SCH (15:13)
[2024-05-09 09:22] LABS: Basophils # (auto) 0.02 K/uL (0.00-0.20); Basophils % (auto) 0.3 %; Eosinophils # (auto) 0.56 K/uL (0.00-0.50); Eosinophils % (auto) 9.6 %; Hematocrit (blood only) 36.1 % (37.0-47.0); Hemoglobin 12.3 g/dl (12.0-16.0); Immature Granulocytes # (auto) 0.08 K/uL (0.01-0.20); Immature Granulocytes % (auto) 1.4 %; Lymphocytes # (auto) 0.77 K/uL (1.20-3.40); Lymphocytes % (auto) 13.2 %; Mean Corpuscular Hemoglobin 31.4 pg (25.0-34.0); Mean Corpuscular Hgb Conc 34.1 g/dL (32.0-36.0); Mean Corpuscular Volume 92.1 fL (80.0-100.0); Mean Platelet Volume 11.4 fL (9.4-12.4); Neutrophils # (auto) 3.69 K/uL (1.40-6.50); Neutrophils % (auto) 63.5 %; Platelet Count 73 K/uL (130-400); RDW Coefficient of Variation 18.7 % (11.5-14.5); RDW Standard Deviation 58.2 fL (36.4-46.3); Red Blood Count 3.92 M/uL (4.20-5.40); White Blood Count 5.82 K/ul (4.8-10.8)
[2024-05-09 09:25] LABS: INR 2.9 (0.9-1.1); Prothrombin Time 28.7 Seconds (9.0-12.0)
[2024-05-09 09:42] LABS: Albumin Globulin Ratio 0.7 (0.9-2); Albumin Level 2.6 gm/dl (3.4-5.0); BUN Creatinine Ratio 33.3 (10-20); Bilirubin,Total 2.1 mg/dl (0.2-1.0); Calcium 7.7 mg/dl (8.6-10.3); Creatinine Clr Calc Pharmacy 188.3 ml/min; Globulin 3.5 gm/dl (2.5-4.0); Magnesium 1.7 mg/dl (1.7-2.4); Total Protein 6.1 gm/dl (6.0-8.3)
[2024-05-09] MEDS: INSULIN HUMAN NPH SC ONE (10:59)
--- NOTE | 2024-05-09 11:06 | Communication Note ---
Date of Service: May 09, 2024 Platelets up to 73. INR 2.9. Consider stopping Lovenox at this time. Recommend we repeat ultrasound in a.m. to evaluate for accumulating ascites. Pa racentesis would be relatively contraindicated however could increase her diuretic she has reasonably good kidney function.
[2024-05-09] MEDS: WARFARIN SOD 5 MG TAB PO SCH (16:23)
--- NOTE | 2024-05-09 17:30 | Hospitalist Progress Note ---
Date of Service May 09, 2024 Assessment & Plan (1) Acute metabolic encephalopathy: Plan: With severe hepatic encephalopathy developing through the weekend of 05/01-05/03, ammonia level quite elevated at 122 and had not moved her bowels in 5 days, was extremely lethargic and moaning and thrashing, significantly confused. Now completely resolved after lactulose enemas and now po lactulose- moving bowels numerous times daily and NH3 level back to normal at 60. She is clearly mentating now, ambulating with assistance, and eating Also contributing was frequent opioid use in the setting of cirrhosis -Continue lactulose 30 g p.o. twice daily -Continue supportive care -minimize opioid use -started Rifaximin-may need prior auth for this as otupt (2) Acute generalized abdominal pain: Plan: Epigastric pain on admission likely 2/2 acute SMV thrombosis. Also with perhaps more chronic splenic vein thrombosis and PVT. Could potentially also have PUD/gastritis but seems less likely. Most recent EGD done in June 2023 also revealed the presence of duodenal ulcerations. Repeat H. pylori stool ag here negative. She had repeat CT A/P 05/03 with no new findings but does have bowel wall edema, no perforation, ascites, and same thrombi. Lactate is normal to only slightly elevated at 2.3 and then down to 1.7 GI considered EGD but cancelled due to hepatic encephalopathy Pain is overall much improved but now with abdominal distention due to worsening ascites Now requiring 3LNC O2 and having SOB -continue Protonix po bid -Continue lactulose for bowel regimen -continue tylenol and minimal use of prn oxycodone -Continue anticoagulation for thromboses -given worsening ascites and abd distension--> plan for paracentesis on Friday with cell counts, Gram stain, and culture---> INR jumped way up after 2 doses of Coumadin--> give Vitamin K and repeat serial INR until down to 1.6 -after paracentesis, resume Coumadin with bridging therapeutic Lovenox -continue spironolactone and lasix-increase doses as BP can tolerate -check CXR in AM but suspect pleural effusions due to worsening ascites-continue O2 to keep POx>90% (3) Portal vein thrombosis: Plan: PVT and SMV and splenic vein thromboses likely new compared to previous but has had these in the past as well It is no longer thought to be true that patients with cirrhosis and elevated INR are "auto-anticoagulated" She clearly developed her SMV thrombosis when off anticoagulation recently -treated with Lovenox SQ and then started Coumadin 05/07 -Discussed with Dr. Ray-restarted Coumadin at 10mg po daily on 05/07 -INR jumped up quickly now to 3.7--> giving Vitamin K to partially reverse for paracentesis on 05/10 for worsening ascites. Eventually resume usual dose 7.5mg likely after that on 05/10. -Follow INR daily -Appreciate hematology consultation -follow CBC-platelets and hgb stable/improved (4) Bacteremia: Plan: Blood cultures from admission growing Streptococcus mitis resistant to tetracycline and erythromycin-she could potentially have an oral source versus GI source. Also with abnormal UA, but urine culture mixed eliezer Repeat BCxs remain NGTD-continue to follow Consult ID appreciated Checked echocardiogram-TTE neg for veg -ID recommends to complete a 14 day course of antibiotics for Strep mitis/oralis bacteremia from date of cleared blood cultures 05/04-05/17. Can continue ceftriaxone 2 g IV q24h while inpatient, then transition to amoxicillin 1 g PO TID if she discharges prior to completing the course. -Obtain a set of blood cultures ~1 week after completing above antibiotics to ensure blood cultures remain clear -when pt undergoes paracentesis here, would send fluid for cell counts, gram stain, culture (5) Cirrhosis of liver: Plan: Known cirrhosis from hepatitis C with esophageal varices. She was treated for HCV previously in 2020 as per review of GI notes. HCV antibdy here is positive but viral load undetectable With hepatic encephalopathy now resolved. Follows with [facility] but no recent notes to review. I do not believe she has been seen by Hepatology -needs outpt f/u with Hepatology as recommended by GI this hospitalization-asked Nurse Navigator to arrange -Started rifaximin and lactulose -increased spironolactone to 50mg and added lasix 20mg daily (years ago she was on aldactone 100mg and lasix 40mg daily-not sure when her doses were decreased/s topped) -Continue nadolol for portal HTN with known varices -needs paracentesis on Friday (6) T2DM (type 2 diabetes mellitus): Plan: with hyperglycemia as she is now eating more--increase NPH to 8 units bid and increase Novolog dosing (7) Lump of right breast: Plan: Right breast mass-highly suspicious for malignancy on breast US and mammo in 09/2023. She was offered biopsy but declined at that time. I discussed with pt and family and they were under the impression that it is NOT cancer and was "stable" and planned on repeat breast imaging in 6 months-I do not see that this is even scheduled. Pt and family now agreeable to repeat breast imaging and possible biopsy I will get her set up with breast imaging as an outpt prior to discharge-sent a message to Dr. Booth [facility] Plan DVT prophylaxis-Lovenox Disposition-continued stay on med/surg, condition is improving, needs paracentesis Friday then eventual discharge to [facility] if approved. Discussed care with son Wu at bedside on 05/09 The patient's 2 sons would be her primary decision makers as she is Admission and Anticipated Discharge Date Admission Date: May 03, 2024 Subjective Pt reports significant worsening tightness and pain across upper abdomen from her ascites and is very anxious to have her paracentesis on Friday. Continues to be mentating clearly, moving bowels regularly, and getting stronger on her feet. Her son reports that pt called him at 5:00 AM crying with pain, yet RN reports pt refuses pain medicine. Discussed care with Radiology as her INR is elevated and needs to be lower for paracentesis. Physical Exam Constitutional: WD/WN, vitals as above + morbidly obese Respiratory: normal respiratory effort, lungs clear to auscultation Cardiovascular: RRR, no murmur, no edema Gastrointestinal (Abdomen): Inspection/Auscultation: + abdomen distended ( Moderately-severely distended) and normal bowel sounds Percussion/Palpation: + abdomen tender (mild in upper abdomen without guarding) and abdomen soft; no guarding and abdomen not rigid Psychiatric: Orientation: alert, oriented x 3 and cooperative Results & Data Results & Data Vital Signs (Past 12 Hours) Vital Signs Temp Pulse Resp BP Pulse Ox O2 Del Method O2 Flow Rate 05/09/24 14:49 37.2 C 88 18 127/65 96 Nasal Cannula 2 05/09/24 07:48 36.6 C 88 18 160/85 H 93 Room Air Laboratory Results CBC, CMP, INR, Magnesium, blood cxs reviewed PG Care Time/CCT Total # of Minutes Spent Total Time Spent with Patient: Total time spent is greater than 50% in coordination of care (as documented) at patient's floor/unit and/or counseling patient: Coding Level of Care Code 80756 SUB INP/OBS CARE 3/50MIN Diagnoses Acute metabolic encephalopathy G93.41 Acute generalized abdominal pain R10.84 Portal vein thrombosis I81 Bacteremia R78.81 Cirrhosis of liver K74.60 T2DM (type 2 diabetes mellitus) E11.9 Lump of right breast N63.10
[2024-05-09] MEDS: PHYTONADIONE 5 MG TAB PO STA (18:19)
[2024-05-09] MEDS: INSULIN HUMAN NPH SC SCH (21:15)
[2024-05-09 22:07] LABS: INR 3.7 (0.9-1.1); Prothrombin Time 35.7 Seconds (9.0-12.0)
[2024-05-09] MEDS: PHYTONADIONE 5 MG in DEXTROSE 5% 50 ML IV ONE (23:25)
[2024-05-10] MEDS ORDERED: Nursing to Pharmacy Communication SCH ×2 (01:30→17:30)
[2024-05-10] MEDS: INSULIN ASPART PER UNIT CHARGE SC SCH ×2 (05:52→17:32)
[2024-05-10 06:38] LABS: Basophils # (auto) 0.03 K/uL (0.00-0.20); Basophils % (auto) 0.6 %; Eosinophils # (auto) 0.55 K/uL (0.00-0.50); Eosinophils % (auto) 10.7 %; Hematocrit (blood only) 34.4 % (37.0-47.0); Hemoglobin 11.5 g/dl (12.0-16.0); Immature Granulocytes # (auto) 0.05 K/uL (0.01-0.20); Lymphocytes # (auto) 0.77 K/uL (1.20-3.40); Mean Corpuscular Hemoglobin 30.8 pg (25.0-34.0); Mean Corpuscular Hgb Conc 33.4 g/dL (32.0-36.0); Mean Corpuscular Volume 92.2 fL (80.0-100.0); Mean Platelet Volume 11.2 fL (9.4-12.4); Monocytes # (auto) 0.68 K/uL (0.11-0.59); Monocytes % (auto) 13.2 %; Neutrophils # (auto) 3.06 K/uL (1.40-6.50); Neutrophils % (auto) 59.5 %; Platelet Count 60 K/uL (130-400); RDW Coefficient of Variation 18.7 % (11.5-14.5); RDW Standard Deviation 59.7 fL (36.4-46.3); Red Blood Count 3.73 M/uL (4.20-5.40); White Blood Count 5.14 K/ul (4.8-10.8)
[2024-05-10 06:40] LABS: Prothrombin Time 20.5 Seconds (9.0-12.0)
[2024-05-10 06:55] LABS: Albumin Globulin Ratio 0.7 (0.9-2); Albumin Level 2.4 gm/dl (3.4-5.0); BUN Creatinine Ratio 30.8 (10-20); Bilirubin,Total 2.2 mg/dl (0.2-1.0); Calcium 7.7 mg/dl (8.6-10.3); Creatinine Clr Calc Pharmacy 203.5 ml/min; Globulin 3.4 gm/dl (2.5-4.0); Potassium 3.7 mmol/L (3.5-5.1); Total Protein 5.8 gm/dl (6.0-8.3)
--- NOTE | 2024-05-10 08:06 | XRay Report ---
EXAM: XR chest 1V portable CLINICAL HISTORY: Hypoxia, worsening ascites, assessment for pleural effusion. TECHNIQUE: An X-ray image of the chest is obtained in PA projection. COMPARISON: comparison with the previous study dated 04/29/2024. FINDINGS: Pulmonary Parenchyma: Marked obliteration of the right costophrenic angle suggesting moderate/marked right-sided pleural effusion with underlying consolidation/collapse. Ground glass opacities seen in the right middle and upper lung zones may be related to subsegmental collapse, however, superadded an infectious process could not be ruled out. Prominent both lynsey with perihilar accentuated broncho vascular markings suggesting lung congestion. Heart and Mediastinum: Cardiomegaly. No mediastinal widening or masses. No hilar or mediastinal lymphadenopathy. Bony Thorax: The bony thorax appears intact without fractures or deformities. Soft Tissues: Linear lucency seen at the right side of the neck. Soft tissues overlying the chest wall are unremarkable. IMPRESSION: 1. Moderate/marked right-sided pleural effusion with ground glass opacities seen involving the right middle and upper lung zones which may be caused by the effusion whoever superadded an infectious process could not be ruled out. (new finding). 2. Bilateral perihilar and basal increase bronchovascular and interstitial markings suggesting lung congestion. (stable). 3. Mild cardiomegaly. (stable). Electronically signed by Zay Lamb 05-10-2024 08:06 AM
--- NOTE | 2024-05-10 08:15 | Hospitalist Progress Note ---
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 (1) Acute metabolic encephalopathy: Plan: -Ammonia(05/04): 122; Patient was lethargic, moaning and confused -Started Lactulose 30 g PO twice daily - NH3(05/08): 61; Resolved after lactulose was given -She is clearly mentating now, ambulating with assistance, appetite is decreased due to abdominal distension -Also contributing was frequent opioid use in the setting of cirrhosis -Continue lactulose 30 g p.o. twice daily -Continue supportive care -minimize opioid use -started Rifaximin 550 mg BID-may need prior Auth for this as outpatient -Her Potassium is 3.7. Probably due to NPO. Will monitor K+ tomorrow and supplement potassium if necessary. (2) Acute generalized abdominal pain: Plan: -Epigastric pain on admission likely 2/2 acute SMV thrombosis. Also with perhaps more chronic splenic vein thrombosis and PVT. -Could potentially also have PUD/gastritis but seems less likely. -Most recent EGD done(07/15) revealed the presence of duodenal ulcerations. Repeat H. pylori stool Ag here negative. -She had repeat CT A/P 05/03 with no new findings but does have bowel wall edema, no perforation, ascites, and same thrombi. --Lactate is normal to only slightly elevated at 2.3 and then down to 1.7 -GI considered EGD but cancelled due to hepatic encephalopathy -Pain is overall much improved but now with abdominal distention due to worsening ascites -Continue Protonix PO bid -Continue lactulose for bowel regimen -continue Tylenol and minimal use of prn oxycodone -given worsening ascites and abd distension--> plan for paracentesis today. Her INR is 2. She received two doses of Vitamin K.Repeat INR is 1.6. -continue spironolactone and lasix-increase doses as BP can tolerate -Chest Xray done in the AM revealed moderate/marked right sided pleural effusion with ground glass opacities and mild cardiomegaly. 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 Ray-restarted Coumadin at 10mg po daily on 05/07 -INR jumped up quickly to 3.7. Received two doses of Vitamin K. Today her INR is 2 and repeat INR is 1.6 and Plan for Paracentesis. - Eventually resume usual dose 7.5mg likely after paracentesis. -Follow INR daily -Appreciate hematology consultation -follow CBC - Platelets : 73>60; Hgb 12.3>11.5 (4) Bacteremia: Plan: -Blood cultures from admission growing Streptococcus mitis resistant to tetracycline and erythromycin-she could potentially have an oral source versus GI source. Also with abnormal UA, but urine culture mixed eliezer -Repeat BCxs remain NGTD-continue to follow -Consult ID appreciated -Checked echocardiogram- revealed Normal left ventricular size and systolic function, mild to moderate concentric left ventricular hypertrophy, EF of 65 to 70%and no visualized vegetation -ID recommends to complete a 14 day course of antibiotics for Strep mitis/oralis bacteremia from date of cleared blood cultures 05/04-05/17. Can continue ceftriaxone 2 g IV q24h while inpatient, then transition to amoxicillin 1 g PO TID if she discharges prior to completing the course. -Obtain a set of blood cultures ~1 week after completing above antibiotics to ensure blood cultures remain clear - After paracentesis- Send fluid for cell counts, gram stain , culture (5) Decompensated Cirrhosis of liver: Plan: -Known cirrhosis from hepatitis C with esophageal varices. She was treated for HCV previously in 2020 as per review of GI notes. HCV antibody here is positive but viral load undetectable With hepatic encephalopathy now resolved. Follows with [facility] but no recent notes to review. -needs outpt f/u with Hepatology as recommended by GI this hospitalization-asked Nurse Navigator to arrange -Started rifaximin and lactulose -increased spironolactone to 50mg and added lasix 20mg daily (years ago she was on Aldactone 100mg and lasix 40mg daily -Continue nadolol for portal HTN with known varices -undergoing Paracentesis today (6) T2DM (type 2 diabetes mellitus): Plan: with hyperglycemia as she is now eating more--increase NPH to 8 units bid and increase NovoLog dosing (7) Lump of right breast: Plan: Right breast mass-highly suspicious for malignancy on breast US and mammo in 09/2023. Will repeat imaging in 6 months. Patient initially declined biopsy but now agreeable to repeat breast imaging an possible biopsy Will set up with breast imaging as an outpt prior to discharge- Dr Mcclendon sent a message to Dr. Booth [facility] Admission and Anticipated Discharge Date Admission Date: May 03, 2024 Supervising Physician Co-Signing Physician Notes I personally examined the patient and verified garcia points of history and exam, discussed case, and agree with decision making and plan documented by Dr. lAmanza. Patient is a 63-year-old female on admission for acute encephalopathy and abdominal pain in setting of cirrhosis and portal vein thrombosis. Mental status has improved significantly since lactulose initiated, will continue in addition to rifaximin. Paracentesis performed today, labs pending. Warfarin restarted at home dose, monitoring INR. Currently, patient remains on antibiotics to complete 14-day course per ID recommendations. Patient will need workup for breast mass that is likely malignant. Patient will be discharged to rehab when medically optimized. She will need buncher machine referral on discharge. Subjective Pt reports significant worsening tightness and pain across upper abdomen from her ascites. Rates pain as 6/10. She also reports Difficulty in breathing and loss of appetite due to abdominal distension. She is oriented to time, place and person. She is having 5 to 7 episodes of BM per day and getting stronger on her feet. Review of Systems Review of Systems: As per HPI. Physical Exam Constitutional: WD/WN, vitals as above + morbidly obese Respiratory: normal respiratory effort, lungs clear to auscultation Cardiovascular: RRR, no murmur, no edema Gastrointestinal (Abdomen): Inspection/Auscultation: + abdomen distended (Moderately-severely distended) and normal bowel sounds Percussion/Palpation: + abdomen tender (mild in upper abdomen without guarding) and abdomen soft; no guarding and abdomen not rigid Psychiatric: Orientation: alert, oriented x 3 and cooperative Results & Data Results & Data Vital Signs (Past 12 Hours) Vital Signs Temp Pulse Resp BP BP Pulse Ox O2 Del Method 05/10/24 07:35 36.7 C 91 H 20 145/60 H 97 Nasal Cannula 05/10/24 00:35 36.5 C 94 H 22 149/67 H 95 Room Air 05/09/24 23:59 95 H 21 139/81 98 Nasal Cannula 05/09/24 23:45 96 H 20 159/73 H 97 Nasal Cannula 05/09/24 23:24 94 H 20 146/82 H 97 Nasal Cannula 05/09/24 20:45 Nasal Cannula O2 Flow Rate 05/10/24 07:35 2.5 05/10/24 00:35 05/09/24 23:59 3 05/09/24 23:45 3 05/09/24 23:24 3 05/09/24 20:45 2
[2024-05-10 12:02] LABS: INR 1.6 (0.9-1.1)
[2024-05-10 17:28] LABS: Appearance Peritoneal Fluid Clear; Color Peritoneal Fluid Yellow; Lymphocytes, Fluid 19 %; Mono,Macrophage,Mesothelial 49 %; Neutrophils, Fluid 32 %; RBC Peritoneal Fluid Auto 5000 /uL; WBC Peritoneal Fluid Auto 328 /ul (0-300)
[2024-05-10] MEDS: WARFARIN SOD 7.5 MG TAB PO STA (17:45)
[2024-05-11 06:22] LABS: INR 1.4 (0.9-1.1); Prothrombin Time 14.8 Seconds (9.0-12.0)
[2024-05-11 06:25] LABS: Basophils # (auto) 0.02 K/uL (0.00-0.20); Basophils % (auto) 0.4 %; Eosinophils # (auto) 0.28 K/uL (0.00-0.50); Eosinophils % (auto) 5.9 %; Hematocrit (blood only) 32.9 % (37.0-47.0); Hemoglobin 11.3 g/dl (12.0-16.0); Immature Granulocytes # (auto) 0.05 K/uL (0.01-0.20); Immature Granulocytes % (auto) 1.1 %; Lymphocytes # (auto) 0.57 K/uL (1.20-3.40); Lymphocytes % (auto) 12.1 %; Mean Corpuscular Hemoglobin 31.9 pg (25.0-34.0); Mean Corpuscular Hgb Conc 34.3 g/dL (32.0-36.0); Mean Corpuscular Volume 92.9 fL (80.0-100.0); Mean Platelet Volume 11.7 fL (9.4-12.4); Monocytes # (auto) 0.58 K/uL (0.11-0.59); Monocytes % (auto) 12.3 %; Neutrophils # (auto) 3.23 K/uL (1.40-6.50); Neutrophils % (auto) 68.2 %; Platelet Count 62 K/uL (130-400); RDW Standard Deviation 63.1 fL (36.4-46.3); Red Blood Count 3.54 M/uL (4.20-5.40); White Blood Count 4.73 K/ul (4.8-10.8)
[2024-05-11 06:44] LABS: Albumin Globulin Ratio 0.7 (0.9-2); Albumin Level 2.3 gm/dl (3.4-5.0); BUN Creatinine Ratio 36.1 (10-20); Bilirubin,Total 1.8 mg/dl (0.2-1.0); Calcium 7.7 mg/dl (8.6-10.3); Creatinine Clr Calc Pharmacy 220.5 ml/min; Globulin 3.1 gm/dl (2.5-4.0); Potassium 3.8 mmol/L (3.5-5.1); Total Protein 5.4 gm/dl (6.0-8.3)
--- NOTE | 2024-05-11 07:48 | Hospitalist Progress Note ---
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 (1) Acute metabolic encephalopathy: -Ammonia(05/04): 122; Patient was lethargic, moaning and confused -Started Lactulose 30 g PO twice daily - NH3(05/08): 61; Resolved after lactulose was given -She is mentating well, oriented to time, place and person. -Continue supportive care -Opioids use may have contributed to encephalopathy; minimize opioid use -started Rifaximin 550 mg BID-may need prior Auth for this as outpatient -Her Potassium is 3.7>3.8 (2) Acute generalized abdominal pain: - She reports her abdominal pain is significantly better after paracentesis yesterday. She rates her pain 2/10 now. 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 -H pylori stool Ag: Negative -CT(A+P)(05/03): bowel wall thickening, moderate right pleural effusion , indeterminate 2 cm right breast mass. -Lactate- 2.3>1.7 -Continue Protonix PO bid -Continue lactulose for bowel regimen -continue Tylenol and minimal use of PRN oxycodone -continue spironolactone 50mg and Lasix 20 mg- Consider increasing dose if BP permits -Chest Xray done (05/10) revealed moderate/marked right sided pleural effusion with ground glass opacities and mild cardiomegaly - Paracentesis done yesterday. -INR today is 1.4. Started home dose of Warfarin Yesterday. Will give Warfarin 7.5mg today and monitor INR tomorrow. (3) Portal vein thrombosis: -Needs to be on Anticoagulation -Started Warfarin 7.5mg (Usual home dose ) after paracentesis. INR today is 1.4 . Will give Warfarin 7.5 mg today and monitor INR tomorrow. -Follow INR daily -Appreciate hematology consultation -follow CBC - Platelets : 73>60>62 ; Hgb 12.3>11.5 (4) Decompensated Cirrhosis of liver: -Known cirrhosis from hepatitis C infection. - She was treated for HCV previously in 2020 as per review of GI notes. HCV antibody here is positive but viral load undetectable -Needs Hepatology consultation on outpatient. -Started rifaximin and lactulose -Continue nadolol for portal HTN with known varices -Paracentesis yesterday . Culture report shows no growth; Peritoneal color Yellow;Peritoneal WBC 328 and RBC 5000; (5) Bacteremia: -Blood cultures (04/29) shows growing Streptococcus mitis resistant to tetracycline and erythromycin- - Also with abnormal UA, but urine culture mixed skin eliezer -Repeat Blood Cultures shows no growth-continue to follow -Echocardiogram- revealed Normal left ventricular size and systolic function, mild to moderate concentric left ventricular hypertrophy, EF of 65 to 70%and no visualized vegetation -ID recommends to complete a 14 day course of antibiotics for Strep mitis/oralis bacteremia from date of cleared blood cultures 05/04-05/17. - Continue ceftriaxone 2 g IV q24h while inpatient, then transition to amoxicillin 1 g PO TID if she discharges prior to completing the course. -Obtain a set of blood cultures ~1 week after completing above antibiotics to ensure blood cultures remain clear - Peritoneal fluid culture shows no growth. (6) T2DM (type 2 diabetes mellitus): -Increase NPH to 8 units bid and increase NovoLog dosing (7) Lump of right breast: - Breast Ultrasound(09/2023): Highly suspicious for malignancy of right breast, no mammographic evidence of malignancy in the left breast -Will repeat mammography and ultrasound of breast .Will schedule for mammography and ultrasound before she leaves. -Talked to patient about possible need of biopsy and importance of biopsy for further investigation. Admission and Anticipated Discharge Date Admission Date: May 03, 2024 Supervising Physician Co-Signing Physician Notes I personally examined the patient and verified garcia points of history and exam, discussed case, and agree with decision making and plan documented by Dr. Almanza. Patient is a 63-year-old female on admission for acute encephalopathy and abdominal pain in setting of cirrhosis and portal vein thrombosis. Bedside evaluation with Indian conditioning coach today, her son Nasim at bedside. Patient in bed, nasal canula in place, lungs with decreased breath sounds (R>L) with crackles at bilateral bases, regular rate and rhythm, abdomen soft with fluid wave, no guarding, diffuse ecchymosis of left back. Overall, abdominal pain improved after paracentesis (5L removed), albumin provided today. Reviewed the importance of establishing with hepatology, they agree to go to [facility] for specialist. Patient's mental status has improved significantly since lactulose initiated, will continue in addition to rifaximin, currently at ~5 BMs per day. Warfarin restarted at home dose, monitoring INR, remains subtherapeutic. Patient remains on supplemental oxygen at 2 L, pleural effusion noted on chest x-ray 05/10/2024, will provide additional diuresis tomorrow and repeat chest x-ray thereafter. Patient remains on antibiotics to complete 14-day course per ID recommendations. Discussed that patient will need workup for breast mass that is likely malignant, she agrees to repeat mammographic imaging and will consider biopsy. Patient will be discharged to rehab when medically optimized. Subjective Pt reports that her abdominal pain is significantly better and she is able to breathe She doesnot feel any difficulty in breathing.Rates pain as 2/10. Her appetite is improved. She is oriented to time, place and person. She is having 6 episodes of BM per day and getting stronger on her feet. Review of Systems Review of Systems: As per HPI. Physical Exam Constitutional: WD/WN, vitals as above + morbidly obese Eyes: PERRL, conjunctivae normal, anicteric sclerae ENMT: external ear and nose normal, oropharynx normal Ears: no hearing impairment Neck: trachea midline, no thyromegaly trachea midline Respiratory: normal respiratory effort, lungs clear to auscultation normal respiratory effort and + respiratory distress; no labored breathing and no retractions Auscultation: lungs clear to auscultation bilaterally Cardiovascular: RRR, no murmur, no edema Rate/Rhythm: regular rate and regular rhythm Chest (Breasts): normal inspection/palpation of breasts Chest: normal inspection of chest Gastrointestinal (Abdomen): Inspection/Auscultation: normal bowel sounds Percussion/Palpation: + abdomen tender and abdomen soft; no guarding and abdomen not rigid Psychiatric: Orientation: alert, oriented x 3 and cooperative Results & Data Results & Data Vital Signs (Past 12 Hours) Vital Signs Temp Pulse Resp BP Pulse Ox O2 Del Method O2 Flow Rate 05/11/24 07:39 36.7 C 93 H 16 136/68 96 Room Air 05/10/24 20:55 Nasal Cannula 1 05/10/24 19:58 36.5 C 85 18 146/83 H 95 Nasal Cannula 2
[2024-05-11] MEDS: ENOXAPARIN INJ 30 MG/0.3 ML SYR SQ ONE (10:46)
[2024-05-11] MEDS: ALBUMIN 25% 12.5 GM/50 ML VIAL IV SCH (14:57)
[2024-05-11] MEDS ORDERED: WARFARIN SOD 10 MG TAB PO SCH (16:00)
[2024-05-11] MEDS: WARFARIN SOD 7.5 MG TAB PO SCH (17:00)
[2024-05-12 06:37] LABS: Basophils # (auto) 0.02 K/uL (0.00-0.20); Basophils % (auto) 0.4 %; Eosinophils # (auto) 0.29 K/uL (0.00-0.50); Eosinophils % (auto) 5.2 %; Hematocrit (blood only) 31.5 % (37.0-47.0); Hemoglobin 10.7 g/dl (12.0-16.0); Immature Granulocytes # (auto) 0.05 K/uL (0.01-0.20); Immature Granulocytes % (auto) 0.9 %; Lymphocytes # (auto) 0.71 K/uL (1.20-3.40); Lymphocytes % (auto) 12.8 %; Mean Corpuscular Hemoglobin 31.2 pg (25.0-34.0); Mean Corpuscular Volume 91.8 fL (80.0-100.0); Mean Platelet Volume 12.1 fL (9.4-12.4); Monocytes # (auto) 0.58 K/uL (0.11-0.59); Monocytes % (auto) 10.5 %; Neutrophils % (auto) 70.2 %; Platelet Count 56 K/uL (130-400); RDW Coefficient of Variation 19.3 % (11.5-14.5); RDW Standard Deviation 62.5 fL (36.4-46.3); Red Blood Count 3.43 M/uL (4.20-5.40); White Blood Count 5.55 K/ul (4.8-10.8)
[2024-05-12 06:42] LABS: INR 1.9 (0.9-1.1); Prothrombin Time 19.9 Seconds (9.0-12.0)
[2024-05-12 06:59] LABS: Albumin Globulin Ratio 0.8 (0.9-2); Albumin Level 2.4 gm/dl (3.4-5.0); BUN Creatinine Ratio 37.5 (10-20); Bilirubin,Total 2.1 mg/dl (0.2-1.0); Calcium 7.7 mg/dl (8.6-10.3); Creatinine Clr Calc Pharmacy 248.1 ml/min; Globulin 3.1 gm/dl (2.5-4.0); Potassium 3.7 mmol/L (3.5-5.1); Total Protein 5.5 gm/dl (6.0-8.3)
--- NOTE | 2024-05-12 08:04 | Hospitalist Progress Note ---
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 (1) Acute metabolic encephalopathy: -Ammonia(05/04): 122; Patient was lethargic, moaning and confused - Started Lactulose 30 g PO twice daily NH3(05/08): 61; Resolved after lactulose was given. Having Bowel Movement of ~6-7 per day. Decrease dose of Lactulose to 20 g PO twice daily to maintain target Bowel Movement of 2 to 3 per day. -Continue supportive care -Opioids use may have contributed to encephalopathy; minimize opioid use -Under Rifaximin 550 mg BID-may need prior Auth for this as outpatient -Her Potassium is 3.7>3.8 >3.7 (2) Acute generalized abdominal pain: - She reports her abdominal pain is significantly better after paracentesis on 05/10. 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 -H pylori stool Ag: Negative -CT(A+P)(05/03): bowel wall thickening, moderate right pleural effusion , indeterminate 2 cm right breast mass. -Lactate- 2.3>1.7 -Continue Protonix PO bid -continue Tylenol PRN and minimal use of PRN oxycodone (3) Ascites - Chest Xray done (05/10) revealed moderate/marked right sided pleural effusion with ground glass opacities and mild cardiomegaly - Paracentesis done on 05/10 - Under Spironolactone 50mg and Lasix 40 mg. Increased dose of Lasix from 20 qAM to 40qAM -Albumin 2.3>2.4 (4) Portal vein thrombosis: -Needs to be on Anticoagulation -Started Warfarin 7.5mg (Usual home dose ) after paracentesis. INR today is 1.9 . Will give Warfarin 7.5 mg today and monitor INR tomorrow. -Follow INR daily -follow CBC - Platelets : 73>60>62>56 ; Hgb 12.3>11.5 (5) Decompensated Cirrhosis of liver: -Known cirrhosis from hepatitis C infection. - She was treated for HCV previously in 2020 as per review of GI notes. HCV antibody here is positive but viral load undetectable -Needs Hepatology consultation on outpatient. -Started rifaximin and lactulose -Continue nadolol for portal HTN with known varices -Paracentesis done on (05/10) with 5 litre fluid out . Culture report shows no growth; Peritoneal color Yellow;Peritoneal WBC 328 and RBC 5000; (6) Bacteremia: -Blood cultures (04/29) shows growing Streptococcus mitis resistant to tetracycline and erythromycin- - Also with abnormal UA, but urine culture mixed skin eliezer -Repeat Blood Cultures shows no growth-continue to follow -Echocardiogram- revealed Normal left ventricular size and systolic function, mild to moderate concentric left ventricular hypertrophy, EF of 65 to 70%and no visualized vegetation -ID recommends to complete a 14 day course of antibiotics for Strep mitis/oralis bacteremia from date of cleared blood cultures 05/04-05/17. - Continue ceftriaxone 2 g IV q24h while inpatient, then transition to amoxicillin 1 g PO TID if she discharges prior to completing the course. -Obtain a set of blood cultures ~1 week after completing above antibiotics to ensure blood cultures remain clear - Peritoneal fluid culture shows no growth. (7) T2DM (type 2 diabetes mellitus): -Increase NPH to 8 units bid and increase NovoLog dosing (8) Lump of right breast: - Breast Ultrasound(09/2023): Highly suspicious for malignancy of right breast, no mammographic evidence of malignancy in the left breast -Will repeat mammography and ultrasound of breast .Will schedule for mammography and ultrasound before she leaves. -Talked to patient about possible need of biopsy and importance of biopsy for further investigation. (9) Hematoma - She fell at home and sustained an injury to her back when she was going to the bathroom. - Hematoma covering the left thoracic and lumbar region slightly above her buttocks. - Concerning as patient is on Warfarin 7.5 mg, with subtherapeutic INR. - CT abdomen and pelvis (05/12) revealed progressive ascites and enlarging right pleural effusion with right lower love atelectasis. No evidence of retroperitoneal hematoma. - Advised to use ice packs over hematoma (10)Pleural Effusion -Chest Xray done (05/10) revealed moderate/marked right sided pleural effusion with ground glass opacities and mild cardiomegaly - Under 2 litre of O2 -Increased Lasix from 20mg qAM to 40mg qAM - Will repeat Chest Xray today or tomorrow Admission and Anticipated Discharge Date Admission Date: May 03, 2024 Supervising Physician Co-Signing Physician Notes I personally examined the patient and verified garcia points of history and exam, discussed case, and agree with decision making and plan documented by Dr. Almanza. Patient is a 63-year-old female on admission for acute encephalopathy and abdominal pain in setting of cirrhosis and portal vein thrombosis. Bedside evaluation with [place] home care scheduler today. Patient reports breathing stable, pain in back caused sleeping difficulty. Patient in bed, nasal canula in place, lungs with decreased breath sounds at right bases, regular rate and rhythm, abdomen soft with fluid wave, no guarding, diffuse ecchymosis of left back. Agree with lactulose decrease and furosemide increase. INR 1.9 today. Patient remains on supplemental oxygen at 2 L, CT scan with progressive ascites and enlarging right pleural effusion and compressive atelectasis on right. Patient remains on antibiotics to complete 14-day course per ID recommendations. Subjective Pt reports that she slept well till 3AM and then woke up due to pain due to bruise in her back. She reports pain at the site of the bruise and slightly below it in the buttocks region.Her abdominal pain is significantly better and she is able to breathe. She is on 2 Litre of O2. She doesn't feel any difficulty in breathing.Her appetite is improved. She is oriented to time, place and person. She is having 6 episodes of BM per day . She was walking around the hallway, but now she is unable to move due to pain in her bruise area. Review of Systems Review of Systems: As per HPI. Physical Exam Constitutional: WD/WN, vitals as above + morbidly obese Eyes: PERRL, conjunctivae normal, anicteric sclerae ENMT: external ear and nose normal, oropharynx normal Ears: no hearing impairment Neck: trachea midline, no thyromegaly trachea midline Respiratory: normal respiratory effort, lungs clear to auscultation normal respiratory effort and + respiratory distress; no labored breathing and no retractions Auscultation: lungs clear to auscultation bilaterally Cardiovascular: RRR, no murmur, no edema Rate/Rhythm: regular rate and regular rhythm Chest (Breasts): normal inspection/palpation of breasts Chest: normal inspection of chest Gastrointestinal (Abdomen): Inspection/Auscultation: normal bowel sounds Percussion/Palpation: abdomen soft; no guarding and abdomen not rigid Skin: Hematoma located in thoracic and lumbar region in the left back, firm, non pulsatile and tender to palpation. Psychiatric: Orientation: alert, oriented x 3 and cooperative Results & Data Results & Data Vital Signs (Past 12 Hours) Vital Signs Temp Pulse Resp BP Pulse Ox O2 Del Method O2 Flow Rate 05/12/24 07:21 36.8 C 93 H 17 134/74 95 Nasal Cannula 2 05/11/24 21:50 Room Air 05/11/24 21:41 36.8 C 95 H 18 146/84 H 96 Nasal Cannula 2
[2024-05-12] MEDS: FUROSEMIDE 40 MG TAB PO SCH (08:52)
--- NOTE | 2024-05-12 11:44 | CT Scan Report ---
ABDOMEN AND PELVIS CT WITHOUT CONTRAST CT DOSE: 1856.56 mGy.cm HISTORY: r/o retroperitoneal bleed, known hematoma lumbar TECHNIQUE: Multiaxial CT images of the abdomen and pelvis were performed without contrast. Sagittal and coronal reconstructions were done. A dose lowering technique was utilized adhering to the princip les of ELAINE. COMPARISON STUDY: 05/03/2024 FINDINGS: Progressive ascites and anasarca is present. The right pleural effusion has enlarged with p rogressive compressive atelectasis of the right lower lobe. A right breast mass is redemonstrated. Cirrhotic liver with portal hypertension and splenomegaly is once again noted. Thrombus in the portal vein cannot be assessed on this noncontrast study. There is edema throughout the mesentery and subcu taneous fat tissues. There is no obstructive uropathy. There is no aortic aneurysm or periaortic jen opathy. There is no retroperitoneal hematoma. There is ascitic fluid in the right inguinal hernia. There is no bowel obstruction or free air. Several thick walled small bowel loops are once again note d and these may be secondary to liver disease. The uterus is not enlarged. The unopacified urinary bl adder is grossly negative. IMPRESSION: Progressive ascites and enlarging right pleural effusion with right lower lobe compressiv e atelectasis. No evidence of retroperitoneal hematoma. Known right breast mass redemonstrated. ACT 112: Negative or not required by law. The above report was generated using voice recognition software. It may contain grammatical, syntax o r spelling errors. Electronically signed by: Suzette Neumann M.D. 05/12/2024 11:43 AM
[2024-05-12] MEDS: LACTULOSE SYRUP 10 GM/15 ML BTL 960 ML PO SCH (21:56)
[2024-05-13 06:44] LABS: Basophils # (auto) 0.02 K/uL (0.00-0.20); Basophils % (auto) 0.3 %; Eosinophils # (auto) 0.29 K/uL (0.00-0.50); Eosinophils % (auto) 4.1 %; Hematocrit (blood only) 30.9 % (37.0-47.0); Hemoglobin 10.9 g/dl (12.0-16.0); Immature Granulocytes # (auto) 0.05 K/uL (0.01-0.20); Immature Granulocytes % (auto) 0.7 %; Lymphocytes # (auto) 0.74 K/uL (1.20-3.40); Lymphocytes % (auto) 10.5 %; Mean Corpuscular Hemoglobin 32.4 pg (25.0-34.0); Mean Corpuscular Hgb Conc 35.3 g/dL (32.0-36.0); Mean Platelet Volume 11.5 fL (9.4-12.4); Monocytes # (auto) 0.67 K/uL (0.11-0.59); Monocytes % (auto) 9.5 %; Neutrophils # (auto) 5.27 K/uL (1.40-6.50); Neutrophils % (auto) 74.9 %; Platelet Count 57 K/uL (130-400); RDW Coefficient of Variation 19.5 % (11.5-14.5); RDW Standard Deviation 62.8 fL (36.4-46.3); Red Blood Count 3.36 M/uL (4.20-5.40); White Blood Count 7.04 K/ul (4.8-10.8)
[2024-05-13 06:58] LABS: Albumin Globulin Ratio 0.8 (0.9-2); Albumin Level 2.4 gm/dl (3.4-5.0); BUN Creatinine Ratio 33.3 (10-20); Bilirubin,Total 1.8 mg/dl (0.2-1.0); Calcium 7.5 mg/dl (8.6-10.3); Creatinine Clr Calc Pharmacy 240.5 ml/min; Potassium 3.9 mmol/L (3.5-5.1); Total Protein 5.4 gm/dl (6.0-8.3)
[2024-05-13 07:07] LABS: Prothrombin Time 29.8 Seconds (9.0-12.0)
--- NOTE | 2024-05-13 08:01 | Hospitalist Progress Note ---
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 (1) Acute metabolic encephalopathy: -Ammonia(05/04): 122; Patient was lethargic, moaning and confused - Started Lactulose 30 g PO twice daily NH3(05/08): 61; Resolved after lactulose was given. Having Bowel Movement of ~6-7 per day. Decrease dose of Lactulose to 20 g PO twice daily to maintain target Bowel Movement of 2 to 3 per day. -Continue supportive care -Opioids use may have contributed to encephalopathy; minimize opioid use -Under Rifaximin 550 mg BID-may need prior Auth for this as outpatient -Her Potassium is 3.7>3.8 >3.7 (2) Acute generalized abdominal pain: - She reports her abdominal pain is significantly better after paracentesis on 05/10. 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 -H pylori stool Ag: Negative -CT(A+P)(05/03): bowel wall thickening, moderate right pleural effusion , indeterminate 2 cm right breast mass. -Lactate- 2.3>1.7 -Continue Protonix PO bid -continue Tylenol PRN and minimal use of PRN oxycodone (3) Ascites - Chest Xray done (05/10) revealed moderate/marked right sided pleural effusion with ground glass opacities and mild cardiomegaly - Paracentesis done on 05/10 - Lasix 20 mg IV BID and spironolactone 100 mg QAM -INR today is 2.2. Vitamin K 5 Unit IV given stat.Will monitor INR tomorrow. Hopefully if INR within the goal, Paracentesis tomorrow. Will infuse Albumin after Paracentesis -Albumin 2.3>2.4 (4) Portal vein thrombosis: -Needs to be on Anticoagulation - Paracentesis most likely tomorrow. Warfarin on hold to maintain INR for the procedure. Will start Anticoagulation after procedure. -Follow INR daily -follow CBC - Platelets : 73>60>62>56 ; Hgb 12.3>11.5 (5) Decompensated Cirrhosis of liver: -Known cirrhosis from hepatitis C infection. - She was treated for HCV previously in 2020 as per review of GI notes. HCV antibody here is positive but viral load undetectable -Needs Hepatology consultation on outpatient. -Started rifaximin and lactulose -Continue nadolol for portal HTN with known varices -Paracentesis done on (05/10) with 5 litre fluid out . Culture report shows no growth; Peritoneal color Yellow;Peritoneal WBC 328 and RBC 5000; (6) Bacteremia: -Blood cultures (04/29) shows growing Streptococcus mitis resistant to tetracycline and erythromycin- - Also with abnormal UA, but urine culture mixed skin eliezer -Repeat Blood Cultures shows no growth-continue to follow -Echocardiogram- revealed Normal left ventricular size and systolic function, mild to moderate concentric left ventricular hypertrophy, EF of 65 to 70%and no visualized vegetation -ID recommends to complete a 14 day course of antibiotics for Strep mitis/oralis bacteremia from date of cleared blood cultures 05/04-05/17. - Continue ceftriaxone 2 g IV q24h while inpatient, then transition to amoxicillin 1 g PO TID if she discharges prior to completing the course. -Obtain a set of blood cultures ~1 week after completing above antibiotics to ensure blood cultures remain clear - Peritoneal fluid culture shows no growth. (7) T2DM (type 2 diabetes mellitus): -Increase NPH to 8 units bid and increase NovoLog dosing (8) Lump of right breast: - Breast Ultrasound(09/2023): Highly suspicious for malignancy of right cortez ast, no mammographic evidence of malignancy in the left breast -Will repeat mammography and ultrasound of breast .Will schedule for mammography and ultrasound before she leaves. -Talked to patient about possible need of biopsy and importance of biopsy for further investigation. (9) Hematoma - She fell at home and sustained an injury to her back when she was going to the bathroom. - Hematoma covering the left thoracic and lumbar region slightly above her buttocks. - Concerning as patient is on Warfarin 7.5 mg, with subtherapeutic INR. - CT abdomen and pelvis (05/12) revealed progressive ascites and enlarging right pleural effusion with right lower love atelectasis. No evidence of retroperitoneal hematoma. - Advised to use ice packs over hematoma (10)Pleural Effusion -Chest Xray done (05/10) revealed moderate/marked right sided pleural effusion with ground glass opacities and mild cardiomegaly - Under 3 litre of O2 -Consulted Pulmonology. According to Pulmonology, risk of hemothorax is high given her BMI, Low Platelets and Anticoagulated state. Appreciate Pulmonology Recs - Under Lasix 20 mg IV BID -Hopefully Paracentesis tomorrow Admission and Anticipated Discharge Date Admission Date: May 03, 2024 Supervising Physician Co-Signing Physician Notes I personally examined the patient and verified garcia points of history and exam, discussed case, and agree with decision making and plan documented by Dr. Almanza. Patient is a 63-year-old female on admission for acute encephalopathy and abdominal pain in setting of cirrhosis and portal vein thrombosis. 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 Patient with increasing oxygen requirement, now on 3L. Reviewed plan to diuresis with IV furosemide, increase spironolactone, and plan for paracentesis if INR tomorrow. Patient in bed, nasal canula in place, lungs with decreased breath sounds at right base, regular rate and rhythm, abdomen distended with fluid wave, diffuse ecchymosis of left back. Continue 14-day course antibiotics as above. Appreciate pulmonary recommendations. Subjective This morning patient was in significant distress due to abdominal distension, abdominal pain and discomfort localized around the diaphragm. She also reports some pain at the site of the bruise and slightly below it in the buttocks region. She was on 3 Litre of O2. She had some difficulty in breathing. In evening she was feeling a bit better after IV Lasix. She looked more comfortable than in the morning. She is oriented to time, place and person. She is having 4 episodes of BM per day . Review of Systems Review of Systems: As per HPI. Physical Exam Constitutional: WD/WN, vitals as above + morbidly obese Eyes: PERRL, conjunctivae normal, anicteric sclerae ENMT: external ear and nose normal, oropharynx normal Ears: no hearing impairment Neck: trachea midline, no thyromegaly trachea midline Respiratory: normal respiratory effort, lungs clear to auscultation normal respiratory effort and + respiratory distress; no labored breathing and no retractions Auscultation: lungs clear to auscultation bilaterally Cardiovascular: RRR, no murmur, no edema Rate/Rhythm: regular rate and regular rhythm Chest (Breasts): normal inspection/palpation of breasts Chest: normal inspection of chest Gastrointestinal (Abdomen): Inspection/Auscultation: + abdomen distended (Moderately-severely distended) and normal bowel sounds Percussion/Palpation: + abdomen tender and abdomen soft; no guarding and abdomen not rigid Psychiatric: Orientation: alert, oriented x 3 and cooperative Results & Data Results & Data Vital Signs (Past 12 Hours) Vital Signs Temp Pulse Resp BP Pulse Ox O2 Del Method O2 Flow Rate 05/13/24 07:19 36.8 C 104 H 16 108/71 98 Nasal Cannula 3 05/13/24 02:00 94 Nasal Cannula 3 05/12/24 22:52 36.6 C 87 18 128/74 94 Nasal Cannula 05/12/24 21:55 Nasal Cannula 1
[2024-05-13] MEDS: PHYTONADIONE 5 MG in DEXTROSE 5% 50 ML IV ONE (11:46)
[2024-05-13] MEDS: FUROSEMIDE INJ 20 MG/2 ML VIAL IV ONE (12:22)
[2024-05-13 15:56] LABS: INR 2.2 (0.9-1.1); Prothrombin Time 22.4 Seconds (9.0-12.0)
[2024-05-13] MEDS: PHYTONADIONE 2.5 MG in DEXTROSE 5% 50 ML IV ONE (17:33)
[2024-05-13] MEDS: FUROSEMIDE INJ 20 MG/2 ML VIAL IV SCH (17:33)
--- NOTE | 2024-05-13 18:53 | Pulmonary Consultation ---
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 Management of hepatic hydrothorax is controlling ascites. Recommend repeat paracentesis. Very high risk for hemothorax given body habitus, thrombocytopenia and a nticoagulation status. (2) Ascites: Patient with massive ascites. Recommend discussing with hepatology and interventional radiology for consideration of intra-abdominal Pleurx catheter drain for recurrent ascites. Indwelling catheter should only be pursued once infectious concerns are completely resolved. Recommend optimizing spironolactone and Lasix dosing. Her serum bicarbonate is continuing to trend up, if this trends up further, recommend obtaining a VBG and if pH greater than 7.4, recommend acetazolamide twice daily for 48 hours with continued spironolactone and Lasix. Ascites type: other type Qualified Code(s): R18.8 - Other ascites (3) Warfarin anticoagulation: Patient's warfarin is currently being reversed by primary service to optimize her for a paracentesis tomorrow. Recommend extreme caution with reversal of anticoagulation patient given portal vein thrombosis and mesenteric vein thrombosis. Consider heparin bridging while warfarin is being reversed. (4) Metabolic alkalosis: (5) Cirrhosis of liver not due to alcohol: History of Present Illness Reason for Consultation: Right pleural effusion with compressive atelectasis Attending Physician: Lucila Dudley DO History of Present Illness 63-year-old female who is Moroccan-speaking with a history of hep C and morbid obesity presenting to the hospital due to epigastric pain and shortness of breath. She has a longstanding history of cirrhosis and has undergone paracentesis in the past and most recently earlier this hospitalization. She had a CT of her abdomen which revealed a large right pleural effusion with compressive atelectasis. Pulmonary is consulted for thoracentesis. Patient endorses some mild shortness of breath and significant abdominal distention. She is thrombocytopenic related to her cirrhosis and has portal vein thrombosis. She is currently anticoagulated with warfarin. Allergies Allergy/AdvReac Type Severity Reaction Status Date / Time menthol Allergy Severe Anaphylaxis Verified 04/30/24 01:50 mint Allergy Severe Anaphylaxis Verified 04/30/24 01:50 Home Medications Medication Instructions Recorded Confirmed Type dapagliflozin propanediol 10 mg 10 mg PO DAILY 07/26/23 04/30/24 History tablet (Farxiga) ondansetron 4 mg disintegrating 4 mg PO TID PRN n/v #20 tabs 07/29/23 04/30/24 Rx tablet gabapentin 400 mg capsule 400 mg PO TID 04/30/24 04/30/24 History nadolol 20 mg tablet 20 mg PO DAILY 04/30/24 04/30/24 History spironolactone 1 tab PO DAILY 04/30/24 04/30/24 History Patient History Medical History Acute pancreatitis Lyme disease Hx of sepsis Hx of small bowel obstruction Hx of Lyme disease treated, no current issues Hx of hepatitis C dx in [place] in 2019 during a vacation - [facility] states patient did have treatment in the past unsure if it was October 2020 or October 2021. Edema bilateral legs, rare Hypothyroidism hx of taking levothyroxine in November 2021 -- no longer takes. Venous stasis dermatitis of both lower extremities Surgical History History of abdominal paracentesis H/O umbilical hernia repair (~01/2020) [place] Family History Mother Gastric cancer Father Stroke Social History Smoking Status: Never smoker Second Hand Exposure: No; Do You Dip or Chew Tobacco: No; Hx Alcohol Use: No Hx Substance Use: No Preferred Language: Moroccan Communication Ability: Unable Communication Ability Comment: Limited understanding of Lao. 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 Morbidly obese. Nasal cannula in place. Eyes: Pupils are equal round and reactive to light. Conjunctivae are normal. Anicteric sclera. Ears nose, mouth and throat: No perioral cyanosis. Neck: Trachea is midline. Visual inspection is normal. Respiratory: Mildly diminished at the right lung base. No tachypnea. No evidence of respiratory distress. Cardiovascular: Regular rate and rhythm. No murmurs. No edema. Gastrointestinal: Severely distended abdomen with positive fluid wave. Musculoskeletal: No cyanosis. Patient is able to move all extremities. Strength is 5 out of 5 in the upper and lower extremities. Skin: No rashes, warm dry and intact. Neurologic: No obvious focal neurological deficits seen. Psychiatric: Alert and oriented x3 with a euthymic affect. Results & Data Results & Data Vital Signs (Past 12 Hours) Vital Signs Temp Pulse Resp BP Pulse Ox O2 Del Method O2 Flow Rate 05/13/24 14:20 36.6 C 92 H 16 109/70 97 Nasal Cannula 3 05/13/24 12:19 37.1 C 91 H 22 128/83 95 Room Air 05/13/24 09:00 Nasal Cannula 3 05/13/24 07:19 36.8 C 104 H 16 108/71 98 Nasal Cannula 3 PG Care Time/CCT Total # of Minutes Spent Total Time Spent with Patient: Total time spent is greater than 50% in coordination of care (as documented) at patient's floor/unit and/or counseling patient: Coding Level of Care Code 74458 IN/OBS CONSULT LVL 4,60M Diagnoses Pleural effusion, right J90 Other ascites R18.8 Ascites type: other type Warfarin anticoagulation Z79.01 Metabolic alkalosis E87.3 Cirrhosis of liver not due to alcohol K74.60
--- NOTE | 2024-05-14 08:18 | Hospitalist Progress Note ---
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 (1) Acute metabolic encephalopathy: -Ammonia(05/04): 122; Patient was lethargic, moaning and confused - Started Lactulose 30 g PO twice daily NH3(05/08): 61; Resolved after lactulose was given. Having Bowel Movement of ~6-7 per day. Decrease dose of Lactulose to 20 g PO twice daily to maintain target Bowel Movement of 2 to 3 per day. 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 INR today is 1.4. Paracentesis today -Her recent EGD(07/15) revealed presence of duodenal ulcerations. -H pylori stool Ag: Negative -CT(A+P)(05/03): bowel wall thickening, moderate right pleural effusion , in determinate 2 cm right breast mass. -CT (A+P)(05/12): Progressive ascites and enlarging right pleural effusion. No signs of retroperitoneal hematoma -Lactate- 2.3>1.7 -Continue Protonix PO bid -continue Tylenol PRN and minimal use of PRN oxycodone (3) Ascites - Chest Xray done (05/10) revealed moderate/marked right sided pleural effusion with ground glass opacities and mild cardiomegaly - Paracentesis done on 05/10. 5 Litre fluid was taken out. - Recurrence of ascites after the procedure again. Likely need paracentesis today . INR is - Lasix 20 mg IV BID and spironolactone 100 mg QAM -Albumin 2.3>2.4 -Infuse Albumin 37.5 mg after paracentesis (4) Portal vein thrombosis: -Needs to be on Anticoagulation. 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 Warfarin on hold to maintain INR for the procedure. Will start Anticoagulation with home dose of Warfarin ie 7.5mg after procedure. -Follow INR daily -follow CBC - Platelets : 73>60>62>56 ; Hgb 12.3>11.5 (5) Decompensated Cirrhosis of liver: -Known cirrhosis from hepatitis C infection. - She was treated for HCV previously in 2020 as per review of GI notes. HCV antibody here is positive but viral load undetectable -Needs Hepatology Consultation -Started rifaximin and lactulose -Continue nadolol for portal HTN with known varices -Paracentesis done on (05/10) with 5 litre fluid out . Culture report shows no growth; Peritoneal color Yellow;Peritoneal WBC 328 and RBC 5000. Recurrence of ascites again after the procedure. Paracentesis today (6) Bacteremia: -Blood cultures (04/29) shows growing Streptococcus mitis resistant to tetracycline and erythromycin- - Also with abnormal UA, but urine culture mixed skin eliezer -Repeat Blood Cultures shows no growth-continue to follow -Echocardiogram- revealed Normal left ventricular size and systolic function, mild to moderate concentric left ventricular hypertrophy, EF of 65 to 70%and no visualized vegetation -ID recommends to complete a 14 day course of antibiotics for Strep mitis/oralis bacteremia from date of cleared blood cultures 05/04-05/17. - Continue ceftriaxone 2 g IV q24h while inpatient, then transition to amoxicillin 1 g PO TID if she discharges prior to completing the course. -Obtain a set of blood cultures ~1 week after completing above antibiotics to ensure blood cultures remain clear - Peritoneal fluid culture shows no growth. (7) T2DM (type 2 diabetes mellitus): -Increase NPH to 8 units bid and increase NovoLog dosing (8) Lump of right breast: - Breast Ultrasound(09/2023): Highly suspicious for malignancy of right breast, no mammographic evidence of malignancy in the left breast -Will repeat mammography and ultrasound of breast .Will schedule for mammography and ultrasound before she leaves. -Talked to patient about possible need of biopsy and importance of biopsy for further investigation. (9) Hematoma - She fell at home and sustained an injury to her back when she was going to the bathroom. - Hematoma covering the left thoracic and lumbar region slightly above her buttocks. - Concerning as patient is on anticoagulation - CT abdomen and pelvis (05/12) revealed progressive ascites and enlarging right pleural effusion with right lower love atelectasis. No evidence of retroperitoneal hematoma. - Advised to use ice packs over hematoma (10)Pleural Effusion -Chest Xray done (05/10) revealed moderate/marked right sided pleural effusion with ground glass opacities and mild cardiomegaly - Under 3 litre of O2 -Consulted Pulmonology. According to Pulmonology, To perform thoracentesis risk of hemothorax is high given her BMI, Low Platelets and Anticoagulated state. Recommended indwelling catheter once infectious agent are completely resolved. Appreciate Pulmonology Recs - Under Lasix 20 mg IV BID Admission and Anticipated Discharge Date Admission Date: May 03, 2024 Supervising Physician Co-Signing Physician Notes ATTESTATION I also saw the patient and confirmed gacria portions of the history and exam. I agree with the impression and plan in the resident documentation, and as summarized below. Patient is seen late this afternoon with the help of the language service. She reports feeling much better after the paracentesis earlier today - better than she did after her paracentesis earlier in the week as well. EXAM VS as noted; afebrile Alert. Pleasant. NAD CV regular Lungs with non labored respirations ABD non tender, less distention than reported previously DATA Labs Hgb 11.5 INR 1.4 Sodium 134, Potassium 3.7, BUN 12, Cr 0.39 Total bilirubin 2.2 Albumin 2.5 Imaging US notes 5L removed paracentesis Micro Peritoneal fluid from 05/10 no growth. IMPRESSION & PLAN Cirrhosis Portal vein thrombosis Abdominal pain Continue Xifaxan, Lasix, Aldactone Lactulose BID Resume warfarin Additional per resident documentation Subjective Inessa is a 63 Y O Female PMH of Cirrhosis of liver from known Hep C infection, Type II DM, Morbid Obesity with BMI 42 and Current use of [facility] anticoagulation for Splenic Vein Thrombosis presented to ED for evaluation of 12/31 Abdominal pain primary epigastric and right sided. She is here for 11 days Overnight events: She woke up at around 1 AM due to pain in the abdomen. Got Oxycodone. Pain got better after oxycodone and went back to sleep at 3AM again. Ongoing Symptoms: Patient reports abdominal distension, abdominal pain and discomfort localized around the diaphragm. She has some difficulty in breathing but states its better than yesterday. Under 3L of oxygen. Pain in the bruise site is getting better. Mentioned a lot better than it was. Oriented to time, place and person. Had 5 BM yesterday Denies dizziness, confusion New concerns. No any Review of Systems Review of Systems: As per HPI. Physical Exam Constitutional: WD/WN, vitals as above + morbidly obese Eyes: PERRL, conjunctivae normal, anicteric sclerae ENMT: external ear and nose normal, oropharynx normal Ears: no hearing impairment Neck: trachea midline, no thyromegaly trachea midline Respiratory: normal respiratory effort, lungs clear to auscultation normal respiratory effort and + respiratory distress; no labored breathing and no retractions Auscultation: lungs clear to auscultation bilaterally Cardiovascular: RRR, no murmur, no edema Rate/Rhythm: regular rate and regular rhythm Chest (Breasts): normal inspection/palpation of breasts Chest: normal inspection of chest Gastrointestinal (Abdomen): Inspection/Auscultation: + abdomen distended (Moderately-severely distended) and normal bowel sounds Percussion/Palpation: + abdomen tender and abdomen soft; no guarding and abdomen not rigid Psychiatric: Orientation: alert, oriented x 3 and cooperative Results & Data Results & Data Vital Signs (Past 12 Hours) Vital Signs Temp Pulse Resp BP Pulse Ox O2 Del Method O2 Flow Rate 05/14/24 07:12 36.3 C L 92 H 16 119/68 95 Nasal Cannula 3 05/13/24 20:50 Nasal Cannula 3
[2024-05-14 08:42] LABS: Basophils # (auto) 0.02 K/uL (0.00-0.20); Basophils % (auto) 0.3 %; Eosinophils % (auto) 2.7 %; Hematocrit (blood only) 33.8 % (37.0-47.0); Hemoglobin 11.5 g/dl (12.0-16.0); Immature Granulocytes # (auto) 0.03 K/uL (0.01-0.20); Immature Granulocytes % (auto) 0.4 %; Lymphocytes # (auto) 0.68 K/uL (1.20-3.40); Lymphocytes % (auto) 9.1 %; Mean Corpuscular Volume 91.1 fL (80.0-100.0); Mean Platelet Volume 12.1 fL (9.4-12.4); Monocytes # (auto) 0.68 K/uL (0.11-0.59); Monocytes % (auto) 9.1 %; Neutrophils # (auto) 5.86 K/uL (1.40-6.50); Neutrophils % (auto) 78.4 %; Platelet Count 61 K/uL (130-400); RDW Coefficient of Variation 19.9 % (11.5-14.5); Red Blood Count 3.71 M/uL (4.20-5.40); White Blood Count 7.47 K/ul (4.8-10.8)
[2024-05-14 09:01] LABS: Albumin Globulin Ratio 0.7 (0.9-2); Albumin Level 2.5 gm/dl (3.4-5.0); BUN Creatinine Ratio 30.8 (10-20); Bilirubin,Total 2.2 mg/dl (0.2-1.0); Calcium 7.6 mg/dl (8.6-10.3); Creatinine Clr Calc Pharmacy 203.5 ml/min; Globulin 3.4 gm/dl (2.5-4.0); Potassium 3.7 mmol/L (3.5-5.1); Total Protein 5.9 gm/dl (6.0-8.3)
[2024-05-14 09:07] LABS: INR 1.4 (0.9-1.1); Prothrombin Time 14.8 Seconds (9.0-12.0)
[2024-05-14] MEDS: SPIRONOLACTONE 100 MG TAB PO SCH (09:51)
--- NOTE | 2024-05-14 14:31 | Ultrasound Report ---
ULTRASOUND-GUIDED PARACENTESIS CLINICAL HISTORY: Ascites PROCEDURE: Procedure and risks were explained. Informed consent was obtained. A final timeout was com pleted. The abdomen was prepped and draped in sterile fashion. 1% lidocaine was utilized for skin ane sthesia. Utilizing ultrasound guidance, a 5 Tamazight safety centesis catheter was advanced into the left lower q uadrant pocket of ascites. Ultrasound images were obtained. 5 L of ascites fluid was removed with 1 L sent to lab for analysis. The catheter was removed and Band-Aid applied. The patient tolerated the p rocedure well. Vital signs will be monitored postprocedure. IMPRESSION: Ultrasound-guided paracentesis as above. Performed, dictated, and signed by Vickey Crawford PA-C; to be co-signed by Dr. Car Rain. Electronically signed by: Car Rain M.D. 05/14/2024 2:33 PM
[2024-05-14] MEDS: ALBUMIN 25% 12.5 GM/50 ML VIAL IV SCH (14:34)
[2024-05-14] MEDS ORDERED: WARFARIN SOD 7.5 MG TAB PO STA (18:10)
[2024-05-14] MEDS ORDERED: Nursing to Pharmacy Communication SCH (18:15)
[2024-05-14] MEDS: WARFARIN SOD 7.5 MG TAB PO ONE (18:24)
[2024-05-15 06:01] LABS: Basophils # (auto) 0.01 K/uL (0.00-0.20); Basophils % (auto) 0.2 %; Eosinophils # (auto) 0.18 K/uL (0.00-0.50); Eosinophils % (auto) 3.6 %; Hematocrit (blood only) 29.2 % (37.0-47.0); Hemoglobin 10.2 g/dl (12.0-16.0); Immature Granulocytes # (auto) 0.01 K/uL (0.01-0.20); Immature Granulocytes % (auto) 0.2 %; Lymphocytes # (auto) 0.54 K/uL (1.20-3.40); Lymphocytes % (auto) 10.8 %; Mean Corpuscular Hgb Conc 34.9 g/dL (32.0-36.0); Mean Corpuscular Volume 91.5 fL (80.0-100.0); Mean Platelet Volume 12.1 fL (9.4-12.4); Monocytes # (auto) 0.52 K/uL (0.11-0.59); Monocytes % (auto) 10.4 %; Neutrophils # (auto) 3.74 K/uL (1.40-6.50); Neutrophils % (auto) 74.8 %; Platelet Count 55 K/uL (130-400); RDW Coefficient of Variation 19.5 % (11.5-14.5); RDW Standard Deviation 63.1 fL (36.4-46.3); Red Blood Count 3.19 M/uL (4.20-5.40)
[2024-05-15 06:19] LABS: Albumin Globulin Ratio 0.9 (0.9-2); Albumin Level 2.5 gm/dl (3.4-5.0); BUN Creatinine Ratio 30.8 (10-20); Bilirubin,Total 2.1 mg/dl (0.2-1.0); Calcium 7.4 mg/dl (8.6-10.3); Creatinine Clr Calc Pharmacy 203.5 ml/min; Globulin 2.9 gm/dl (2.5-4.0); Potassium 3.7 mmol/L (3.5-5.1); Total Protein 5.4 gm/dl (6.0-8.3)
[2024-05-15 06:29] LABS: INR 1.4 (0.9-1.1); Prothrombin Time 14.9 Seconds (9.0-12.0)
--- NOTE | 2024-05-15 08:36 | Hospitalist Progress Note ---
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 (1) Acute metabolic encephalopathy: -Ammonia(05/04): 122; Patient was lethargic, moaning and confused - Started Lactulose 30 g PO twice daily NH3(05/08): 61; Resolved after lactulose was given. Having Bowel Movement of ~6-7 per day. Decrease dose of Lactulose to 20 g PO twice daily to maintain target Bowel Movement of 2 to 3 per day. 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 INR today is 1.4. -Her recent EGD(07/15) revealed presence of duodenal ulcerations. -H pylori stool Ag: Negative -CT(A+P)(05/03): bowel wall thickening, moderate right pleural effusion , indeterminate 2 cm right breast mass. -CT (A+P)(05/12): Progressive ascites and enlarging right pleural effusion. No signs of retroperitoneal hematoma -Lactate- 2.3>1.7 -Continue Protonix PO bid -continue Tylenol PRN and minimal use of PRN oxycodone (3) Ascites - Chest Xray done (05/10) revealed moderate/marked right sided pleural effusion with ground glass opacities and mild cardiomegaly - Paracentesis done on 05/10. 5 Litre fluid was taken out. Recurrence of Ascites - Paracentesis on 05/15: 5 Litre fluid was taken out . Patient feels better after the procedure - Lasix 20 mg IV BID and spironolactone 100 mg QAM -Albumin 2.3>2.4>2.4 (4) Portal vein thrombosis: -On Warfarin 7.5 Mg PO daily -Follow INR daily -follow CBC - Platelets : 73>60>62>56>61>55 ; Hgb 12.3>11.5>10.2 (5) Decompensated Cirrhosis of liver: -Known cirrhosis from hepatitis C infection. - She was treated for HCV previously in 2020 as per review of GI notes. HCV antibody here is positive but viral load undetectable -MELD score of 7 to 10% Mortality -Needs to establish Care with Hepatology -Started rifaximin and lactulose -Continue nadolol for portal HTN with known varices -Paracentesis done on (05/10) with 5 litre fluid out . Culture report shows no growth; Peritoneal color Yellow;Peritoneal WBC 328 and RBC 5000. Recurrence of ascites again after the procedure. -Repeat Paracentesis on 05/14 with 5L fluid out (6) Bacteremia: -Blood cultures (04/29) shows growing Streptococcus mitis resistant to tetracycline and erythromycin- - Also with abnormal UA, but urine culture mixed skin eliezer -Repeat Blood Cultures shows no growth-continue to follow -Echocardiogram- revealed Normal left ventricular size and systolic function, mild to moderate concentric left ventricular hypertrophy, EF of 65 to 70%and no visualized vegetation -ID recommends to complete a 14 day course of antibiotics for Strep mitis/oralis bacteremia from date of cleared blood cultures 05/04-05/17. - Ceftriaxone 2 g IV q24h while inpatient (Day 12) - transition to amoxicillin 1 g PO TID if she discharges prior to completing the course. -Obtain a set of blood cultures ~1 week after completing above antibiotics to ensure blood cultures remain clear - Peritoneal fluid culture from 05/10 shows no growth. (7) T2DM (type 2 diabetes mellitus): -Increase NPH to 8 units bid and increase NovoLog dosing (8) Lump of right breast: - Breast Ultrasound(09/2023): Highly suspicious for malignancy of right breast, no mammographic evidence of malignancy in the left breast -Will repeat mammography and ultrasound of breast .Will schedule for mammography and ultrasound before she leaves. -Talked to patient about possible need of biopsy and importance of biopsy for further investigation. (9) Hematoma - She fell at home and sustained an injury to her back when she was going to the bathroom. - Hematoma covering the left thoracic and lumbar region slightly above her buttocks. - Concerning as patient is on anticoagulation - CT abdomen and pelvis (05/12) revealed progressive ascites and enlarging right pleural effusion with right lower love atelectasis. No evidence of retroperitoneal hematoma. - Advised to use ice packs over hematoma (10)Pleural Effusion -Chest Xray done (05/10) revealed moderate/marked right sided pleural effusion with ground glass opacities and mild cardiomegaly - Under 3 litre of O2 -Consulted Pulmonology. According to Pulmonology, To perform thoracentesis risk of hemothorax is high given her BMI, Low Platelets and Anticoagulated state. Recommended indwelling catheter once infectious agent are completely resolved. Appreciate Pulmonology Recs - Under Lasix 20 mg IV BID and Spironolactone 50mg PO daily Admission and Anticipated Discharge Date Admission Date: May 03, 2024 Supervising Physician Co-Signing Physician Notes ATTESTATION I also saw the patient and confirmed garcia portions of the history and exam. I agree with the impression and plan in the resident documentation, and as summarized below. Notes some left mid thoracic back pain, which started last night and continued into today. Did do better with morphine overnight. Heating pad and pillow applied to the area today seem to be helping. EXAM 116/72, 86, 17, 36.8, 94% on nasal cannula 2 L/min CV regular Lungs with non labored respirations ABD non tender, less distention than reported previously Back with previously noted ecchymosis. The area of her pain is mid to low thoracic, left of midline. In this area there is no ecchymosis or rash. She has no midline tenderness palpation. DATA Labs Hgb 10.2, plt 55 INR 1.4 Sodium 134, Potassium 3.7, BUN 12, Cr 0.39 Micro Peritoneal fluid from 05/10 no growth. 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 She is here for 12 days Overnight events: She woke up at around 1 AM due to pain in her back. Got Oxycodone. Pain got better after oxycodone and went back to sleep Ongoing Symptoms: Patient reports abdominal pain and discomfort is better than yesterday. No shortness of breath. Under 3L of oxygen. Reports no pain in the bruise site. . Had 5 BM yesterday. Well oriented to the time, place and person Denies dizziness, confusion New concerns. Today she reports of pain in her back in the mid thoracis region Review of Systems Review of Systems: As per HPI Physical Exam Constitutional: WD/WN, vitals as above + morbidly obese Eyes: PERRL, conjunctivae normal, anicteric sclerae ENMT: external ear and nose normal, oropharynx normal Ears: no hearing impairment Neck: trachea midline, no thyromegaly trachea midline Respiratory: normal respiratory effort, lungs clear to auscultation normal respiratory effort and + respiratory distress; no labored breathing and no retractions Auscultation: lungs clear to auscultation bilaterally Cardiovascular: RRR, no murmur, no edema Rate/Rhythm: regular rate and regular rhythm Chest (Breasts): normal inspection/palpation of breasts Chest: normal inspection of chest Gastrointestinal (Abdomen): Inspection/Auscultation: + abdomen distended (Moderatelydistended) and normal bowel sounds Percussion/Palpation: no guarding and abdomen not rigid Psychiatric: Orientation: alert, oriented x 3 and cooperative Results & Data Results & Data Vital Signs (Past 12 Hours) Vital Signs Temp Pulse Resp BP Pulse Ox O2 Del Method O2 Flow Rate 05/15/24 07:01 36.6 C 101 H 16 124/71 96 Nasal Cannula 3 05/14/24 21:22 37.1 C 100 H 18 106/54 L 95 Nasal Cannula 3
--- NOTE | 2024-05-15 11:47 | XRay Report ---
EXAM: Radiographs of the Thoracolumbar Spine 2 or More Views INDICATION: Posttraumatic pain. TECHNIQUE: Frontal and lateral views of the thoracolumbar spine. COMPARISON: No relevant prior studies available. FINDINGS: Vertebrae: There is mild thoracolumbar spondylosis. Diffuse lumbar facet arthrosis noted. No fracture or subluxation. Disc spaces: Generalized mild to moderate thoracic and lower lumbar disc space narrowing. Soft tissues: No abnormality noted. No radiopaque foreign body noted. IMPRESSION: Thoracolumbar degenerative changes. No fracture. ACT 112: Negative or not required by law. Electronically signed by Lucretia Randhawa 05-15-2024 11:47 AM
--- NOTE | 2024-05-15 11:48 | XRay Report ---
EXAM: Radiographs of the Sacrum and Coccyx 3 Views INDICATION: Posttraumatic pain TECHNIQUE: Frontal and lateral views of the sacrum and coccyx. COMPARISON: No relevant prior studies available. FINDINGS: Sacrum/coccyx: No significant abnormality noted. No acute fracture. Vertebrae: Visualized lumbar vertebrae are unremarkable. Soft tissues: No abnormality noted. No radiopaque foreign body noted. IMPRESSION: No abnormality noted. ACT 112: Negative or not required by law. Electronically signed by Lucretia Randhawa 05-15-2024 11:47 AM
[2024-05-15] MEDS: WARFARIN SOD 7.5 MG TAB PO SCH (17:16)
[2024-05-15] MEDS: LIDOCAINE 5% 1 PATCH TD STA (22:01)
[2024-05-16 06:16] LABS: Basophils # (auto) 0.03 K/uL (0.00-0.20); Basophils % (auto) 0.4 %; Eosinophils # (auto) 0.29 K/uL (0.00-0.50); Eosinophils % (auto) 4.3 %; Hemoglobin 11.2 g/dl (12.0-16.0); Immature Granulocytes # (auto) 0.05 K/uL (0.01-0.20); Immature Granulocytes % (auto) 0.7 %; Lymphocytes # (auto) 0.77 K/uL (1.20-3.40); Lymphocytes % (auto) 11.4 %; Mean Corpuscular Hemoglobin 31.5 pg (25.0-34.0); Mean Corpuscular Hgb Conc 33.9 g/dL (32.0-36.0); Mean Platelet Volume 11.8 fL (9.4-12.4); Monocytes # (auto) 0.78 K/uL (0.11-0.59); Monocytes % (auto) 11.5 %; Neutrophils # (auto) 4.84 K/uL (1.40-6.50); Neutrophils % (auto) 71.7 %; Platelet Count 67 K/uL (130-400); RDW Coefficient of Variation 19.7 % (11.5-14.5); RDW Standard Deviation 64.9 fL (36.4-46.3); Red Blood Count 3.55 M/uL (4.20-5.40); White Blood Count 6.76 K/ul (4.8-10.8)
[2024-05-16 06:20] LABS: Albumin Globulin Ratio 0.8 (0.9-2); Albumin Level 2.5 gm/dl (3.4-5.0); BUN Creatinine Ratio 28.3 (10-20); Bilirubin,Total 2.6 mg/dl (0.2-1.0); Calcium 7.7 mg/dl (8.6-10.3); Creatinine Clr Calc Pharmacy 172.6 ml/min; Globulin 3.2 gm/dl (2.5-4.0); Potassium 3.7 mmol/L (3.5-5.1); Total Protein 5.7 gm/dl (6.0-8.3)
[2024-05-16 06:26] LABS: INR 1.7 (0.9-1.1); Prothrombin Time 17.9 Seconds (9.0-12.0)
--- NOTE | 2024-05-16 08:31 | Hospitalist Progress Note ---
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 (1) Acute metabolic encephalopathy: -Ammonia(05/04): 122; Patient was lethargic, moaning and confused - Started Lactulose 30 g PO twice daily NH3(05/08): 61; Resolved after lactulose was given. Having Bowel Movement of ~6-7 per day. - Decrease dose of Lactulose to 20 g PO twice daily to maintain target Bowel Movement of 2 to 3 per day. 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 INR today is 1.7 -Her recent EGD(07/15) revealed presence of duodenal ulcerations. -H pylori stool Ag: Negative -CT(A+P)(05/03): bowel wall thickening, moderate right pleural effusion , indeterminate 2 cm right breast mass. -CT (A+P)(05/12): Progressive ascites and enlarging right pleural effusion. No signs of retroperitoneal hematoma -Lactate- 2.3>1.7 -Continue Protonix PO bid -continue Tylenol PRN and minimal use of PRN oxycodone (3) Ascites - Chest Xray done (05/10) revealed moderate/marked right sided pleural effusion with ground glass opacities and mild cardiomegaly - Paracentesis done on 05/10. 5 Litre fluid was taken out. Recurrence of Ascites - Paracentesis on 05/15: 5 Litre fluid was taken out . Patient feels better after the procedure - Lasix 20 mg IV BID and spironolactone 100 mg QAM -Albumin 2.5 (4) Portal vein thrombosis: -On Warfarin 7.5 Mg PO daily -Follow INR daily -follow CBC - Platelets : 73>60>62>56>61>55>67 ; Hgb 12.3>11.5>10.2>11.2 (5) Decompensated Cirrhosis of liver: -Known cirrhosis from hepatitis C infection. - She was treated for HCV previously in 2020 as per review of GI notes. HCV antibody here is positive but viral load undetectable -MELD score of 7 to 10% Mortality -Needs to establish Care with Hepatology -Started rifaximin and lactulose -Continue nadolol for portal HTN with known varices -Paracentesis done on (05/10) with 5 litre fluid out . Culture report shows no growth; Peritoneal color Yellow;Peritoneal WBC 328 and RBC 5000. Recurrence of ascites again after the procedure. -Repeat Paracentesis on 05/14 with 5L fluid out (6) Bacteremia: -Blood cultures (04/29) shows growing Streptococcus mitis resistant to tetracycline and erythromycin- - Also with abnormal UA, but urine culture mixed skin eliezer -Repeat Blood Cultures shows no growth-continue to follow -Echocardiogram- revealed Normal left ventricular size and systolic function, mild to moderate concentric left ventricular hypertrophy, EF of 65 to 70%and no visualized vegetation -ID recommends to complete a 14 day course of antibiotics for Strep mitis/oralis bacteremia from date of cleared blood cultures 05/04-05/17. - Ceftriaxone 2 g IV q24h while inpatient (Day 13) - transition to amoxicillin 1 g PO TID if she discharges prior to completing the course. -Obtain a set of blood cultures ~1 week after completing above antibiotics to ensure blood cultures remain clear - Peritoneal fluid culture from 05/10 shows no growth. (7) T2DM (type 2 diabetes mellitus): -Increase NPH to 8 units bid and increase NovoLog dosing (8) Lump of right breast: - Breast Ultrasound(09/2023): Highly suspicious for malignancy of right breast, no mammographic evidence of malignancy in the left breast -Will repeat mammography and ultrasound of breast .Will schedule for mammography and ultrasound before she leaves. -Talked to patient about possible need of biopsy and importance of biopsy for further investigation. (9) Hematoma - She fell at home and sustained an injury to her back when she was going to the bathroom. - Hematoma covering the left thoracic and lumbar region slightly above her buttocks. - Concerning as patient is on anticoagulation - CT abdomen and pelvis (05/12) revealed progressive ascites and enlarging right pleural effusion with right lower love atelectasis. No evidence of retroperitoneal hematoma. - Advised to use ice packs over hematoma (10)Pleural Effusion -Chest Xray done (05/10) revealed moderate/marked right sided pleural effusion with ground glass opacities and mild cardiomegaly - Under 3 litre of O2 -Consulted Pulmonology. According to Pulmonology, To perform thoracentesis risk of hemothorax is high given her BMI, Low Platelets and Anticoagulated state. Recommended indwelling catheter once infectious agent are completely resolved. Appreciate Pulmonology Recs - Under Lasix 20 mg IV BID and Spironolactone 50mg PO daily (11) Back pain -Complaining of pain in mid thoracic region from 05/15 -XR thoracic, lumbar and sacral region: Negative for fracture or dislocation. Mild degenerating changes seen. - Tylenol 500 mg TID for pain - Reported pain in upper back and radiated to left upper abdomen -Lipase: 141 Admission and Anticipated Discharge Date Admission Date: May 03, 2024 Supervising Physician Co-Signing Physician Notes ATTESTATION I also saw the patient and confirmed garcia portions of the history and exam. I agree with the impression and plan in the resident documentation, and as summarized below. Pain improved this morning. EXAM VS as noted CV regular Lungs with non labored respirations ABD non tender DATA Labs Hgb 11.2, plt 67 INR 1.7 Sodium 134, Potassium 3.7, BUN 1, Cr 0.46 Total bilirubin 2.6 Micro Peritoneal fluid from 05/10 no growth. IMPRESSION & PLAN hepatitis C associated cirrhosis, status post Mavyret 12-week therapy completed in 2020 history of Portal vein thrombosis thrombocytopenia Abdominal pain Continue Xifaxan, Lasix, Aldactone Lactulose BID Continue warfarin, we will continue systemic anticoagulation as long as platelet count greater than 50K PT/OT consult Additional per resident documentation Cruzito Wylie is a 63 Y O Female PMH of Cirrhosis of liver from known Hep C infection, Type II DM, Morbid Obesity with BMI 42 and Current use of group home anticoagulation for Splenic Vein Thrombosis presented to ED for evaluation of 12/31 Abdominal pain primary epigastric and right sided. She is here for 12 days Overnight events: Patient had a good sleep overnight. No any acute overnight events. Ongoing Symptoms: Patient reports abdominal pain and discomfort is better . No shortness of breath. Under 3L of oxygen. Reports no pain in the bruise site. . Had 3 BM yesterday. Well oriented to the time, place and person. She still complains of pain in her mid thoracic region little better with analgesics. She reports pain is radiating from back to the left upper abdomen region. Denies dizziness, confusion New concerns. No any Review of Systems Review of Systems: As per HPI Physical Exam Constitutional: WD/WN, vitals as above + morbidly obese Eyes: PERRL, conjunctivae normal, anicteric sclerae ENMT: external ear and nose normal, oropharynx normal Ears: no hearing impairment Neck: trachea midline, no thyromegaly trachea midline Respiratory: normal respiratory effort, lungs clear to auscultation normal respiratory effort and + respiratory distress; no labored breathing and no retractions Auscultation: lungs clear to auscultation bilaterally Cardiovascular: RRR, no murmur, no edema Rate/Rhythm: regular rate and regular rhythm Chest (Breasts): normal inspection/palpation of breasts Chest: normal inspection of chest Gastrointestinal (Abdomen): Inspection/Auscultation: + abdomen distended (Moderatelydistended) and normal bowel sounds Percussion/Palpation: + abdomen tender and abdomen soft; no guarding and abdomen not rigid Psychiatric: Orientation: alert, oriented x 3 and cooperative Results & Data Results & Data Vital Signs (Past 12 Hours) Vital Signs Temp Pulse Resp BP BP Pulse Ox O2 Del Method 05/16/24 06:59 36.4 C L 94 H 17 118/69 94 Nasal Cannula 05/15/24 21:27 Nasal Cannula 05/15/24 21:08 37.1 C 87 18 120/74 95 Room Air O2 Flow Rate 05/16/24 06:59 3 05/15/24 21:27 3 05/15/24 21:08
[2024-05-16] MEDS: ACETAMINOPHEN 500 MG TAB PO SCH (12:07)
[2024-05-17 07:00] VITALS: BP 103/63; TEMP 98.1
[2024-05-17 07:44] LABS: Basophils # (auto) 0.04 K/uL (0.00-0.20); Basophils % (auto) 0.8 %; Eosinophils # (auto) 0.22 K/uL (0.00-0.50); Eosinophils % (auto) 4.2 %; Hematocrit (blood only) 32.2 % (37.0-47.0); Immature Granulocytes # (auto) 0.01 K/uL (0.01-0.20); Immature Granulocytes % (auto) 0.2 %; Lymphocytes # (auto) 0.83 K/uL (1.20-3.40); Lymphocytes % (auto) 15.8 %; Mean Corpuscular Hemoglobin 31.7 pg (25.0-34.0); Mean Corpuscular Hgb Conc 34.2 g/dL (32.0-36.0); Mean Corpuscular Volume 92.8 fL (80.0-100.0); Mean Platelet Volume 11.5 fL (9.4-12.4); Monocytes # (auto) 0.65 K/uL (0.11-0.59); Monocytes % (auto) 12.4 %; Neutrophils # (auto) 3.51 K/uL (1.40-6.50); Neutrophils % (auto) 66.6 %; Platelet Count 62 K/uL (130-400); RDW Coefficient of Variation 19.5 % (11.5-14.5); RDW Standard Deviation 64.8 fL (36.4-46.3); Red Blood Count 3.47 M/uL (4.20-5.40); White Blood Count 5.26 K/ul (4.8-10.8)
[2024-05-17 08:40] LABS: INR 2.5 (0.9-1.1); Prothrombin Time 24.7 Seconds (9.0-12.0)
--- NOTE | 2024-05-17 08:48 | Hospitalist Progress Note ---
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 (1) Acute metabolic encephalopathy: -Ammonia(05/04): 122; Patient was lethargic, moaning and confused - Started Lactulose 30 g PO twice daily NH3(05/08): 61; Resolved after lactulose was given. Having Bowel Movement of ~6-7 per day. - Decrease dose of Lactulose to 20 g PO twice daily to maintain target Bowel Movement of 2 to 3 per day. 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 INR today is 1.7 -Her recent EGD(07/15) revealed presence of duodenal ulcerations. -H pylori stool Ag: Negative -CT(A+P)(05/03): bowel wall thickening, moderate right pleural effusion , indeterminate 2 cm right breast mass. -CT (A+P)(05/12): Progressive ascites and enlarging right pleural effusion. No signs of retroperitoneal hematoma -Lactate- 2.3>1.7 -Continue Protonix PO bid -continue Tylenol PRN and minimal use of PRN oxycodone (3) Ascites - Chest Xray done (05/10) revealed moderate/marked right sided pleural effusion with ground glass opacities and mild cardiomegaly - Paracentesis done on 05/10. 5 Litre fluid was taken out. Recurrence of Ascites - Paracentesis on 05/15: 5 Litre fluid was taken out . Patient feels better after the procedure - Lasix 20 mg IV BID and spironolactone 100 mg QAM -Albumin 2.5 (4) Portal vein thrombosis: -On Warfarin 7.5 Mg PO daily -Follow INR daily -follow CBC - Platelets : 73>60>62>56>61>55>67 ; Hgb 12.3>11.5>10.2>11.2 (5) Decompensated Cirrhosis of liver: -Known cirrhosis from hepatitis C infection. - She was treated for HCV previously in 2020 as per review of GI notes. HCV antibody here is positive but viral load undetectable -MELD score of 7 to 10% Mortality -Needs to establish Care with Hepatology -Started rifaximin and lactulose -Continue nadolol for portal HTN with known varices -Paracentesis done on (05/10) with 5 litre fluid out . Culture report shows no growth; Peritoneal color Yellow;Peritoneal WBC 328 and RBC 5000. Recurrence of ascites again after the procedure. -Repeat Paracentesis on 05/14 with 5L fluid out (6) Bacteremia: -Blood cultures (04/29) shows growing Streptococcus mitis resistant to tetracycline and erythromycin- - Also with abnormal UA, but urine culture mixed skin eliezer -Repeat Blood Cultures shows no growth-continue to follow -Echocardiogram- revealed Normal left ventricular size and systolic function, mild to moderate concentric left ventricular hypertrophy, EF of 65 to 70%and no visualized vegetation -ID recommends to complete a 14 day course of antibiotics for Strep mitis/oralis bacteremia from date of cleared blood cultures 05/04-05/17. - Ceftriaxone 2 g IV q24h while inpatient (Day 13) - transition to amoxicillin 1 g PO TID if she discharges prior to completing the course. -Obtain a set of blood cultures ~1 week after completing above antibiotics to ensure blood cultures remain clear - Peritoneal fluid culture from 05/10 shows no growth. (7) T2DM (type 2 diabetes mellitus): -Increase NPH to 8 units bid and increase NovoLog dosing (8) Lump of right breast: - Breast Ultrasound(09/2023): Highly suspicious for malignancy of right breast, no mammographic evidence of malignancy in the left breast -Will repeat mammography and ultrasound of breast .Will schedule for mammography and ultrasound before she leaves. -Talked to patient about possible need of biopsy and importance of biopsy for further investigation. (9) Hematoma - She fell at home and sustained an injury to her back when she was going to the bathroom. - Hematoma covering the left thoracic and lumbar region slightly above her buttocks. - Concerning as patient is on anticoagulation - CT abdomen and pelvis (05/12) revealed progressive ascites and enlarging right pleural effusion with right lower love atelectasis. No evidence of retroperitoneal hematoma. - Advised to use ice packs over hematoma (10)Pleural Effusion -Chest Xray done (05/10) revealed moderate/marked right sided pleural effusion with ground glass opacities and mild cardiomegaly - Under 3 litre of O2 -Consulted Pulmonology. According to Pulmonology, To perform thoracentesis risk of hemothorax is high given her BMI, Low Platelets and Anticoagulated state. Recommended indwelling catheter once infectious agent are completely resolved. Appreciate Pulmonology Recs - Under Lasix 20 mg IV BID and Spironolactone 50mg PO daily (11) Back pain -Complaining of pain in mid thoracic region from 05/15 -XR thoracic, lumbar and sacral region: Negative for fracture or dislocation. Mild degenerating changes seen. - Tylenol 500 mg TID for pain - Reported pain in upper back and radiated to left upper abdomen -Lipase: 141 Admission and Anticipated Discharge Date Admission Date: May 03, 2024 Cruzito Wylie is a 63 Y O Female PMH of Cirrhosis of liver from known Hep C infection, Type II DM, Morbid Obesity with BMI 42 and Current use of detention anticoagulation for Splenic Vein Thrombosis presented to ED for evaluation of 10/10 Abdominal pain primary epigastric and right sided. She is here for 14 days Overnight events: Patient had a good sleep overnight. No any acute overnight e vents. Ongoing Symptoms: Patient reports abdominal pain and discomfort . Reports some shortness of breath. Under 3L of oxygen. Reports some painin the bruise site. . Had 4 BM yesterday. Well oriented to the time, place and person. She still complains of pain in her mid thoracic region but better than yesterday. She reports pain is radiating from back to the left upper abdomen region. Denies dizziness, confusion New concerns. No any Vitals: Under 3L of 02; otherwise stable Labs: Platelets count 65 to 62; INR 2.5; Total Bilirubin 2.6 -2.3 Lipase 127 Ammonia 57 Albumin is 2.5 Hepatitis C virus antibody is positive but viral load is undetectable Review of Systems Review of Systems: As per HPI Physical Exam Constitutional: WD/WN, vitals as above + morbidly obese Eyes: PERRL, conjunctivae normal, anicteric sclerae ENMT: external ear and nose normal, oropharynx normal Ears: no hearing impairment Neck: trachea midline, no thyromegaly trachea midline Respiratory: normal respiratory effort, lungs clear to auscultation normal respiratory effort and + respiratory distress; no labored breathing and no retractions Auscultation: lungs clear to auscultation bilaterally Cardiovascular: RRR, no murmur, no edema Rate/Rhythm: regular rate and regular rhythm Chest (Breasts): normal inspection/palpation of breasts Chest: normal inspection of chest Gastrointestinal (Abdomen): Inspection/Auscultation: + abdomen distended (Moderatelydistended) and normal bowel sounds Percussion/Palpation: + abdomen tender and abdomen soft; no guarding and abdomen not rigid Psychiatric: Orientation: alert, oriented x 3 and cooperative Results & Data Results & Data Vital Signs (Past 12 Hours) Vital Signs Temp Pulse Resp BP Pulse Ox O2 Del Method O2 Flow Rate 05/17/24 06:59 36.7 C 86 18 103/63 95 Nasal Cannula 3.0
[2024-05-17 09:22] LABS: Albumin Globulin Ratio 0.8 (0.9-2); Albumin Level 2.5 gm/dl (3.4-5.0); Bilirubin,Total 2.3 mg/dl (0.2-1.0); Calcium 7.8 mg/dl (8.6-10.3); Creatinine Clr Calc Pharmacy 193.6 ml/min; Globulin 3.2 gm/dl (2.5-4.0); Potassium 3.5 mmol/L (3.5-5.1); Total Protein 5.7 gm/dl (6.0-8.3)
[2024-05-17] MEDS: ACETAMINOPHEN 325 MG TAB PO ONE (15:33)
[2024-05-17 16:03] VITALS: PULSE 86; RESP 18; O2SAT 95
--- NOTE | 2024-05-17 18:18 | Discharge Summary ---
Date of Service May 17, 2024 Admission HPI Per Admitting Provider Inessa Toscano is a pleasant 63yo female presenting with abdominal pain. Interview obtained with assistance from translation services - [place]ian Patient with history of HCV, Cirrhosis with esophageal varices and portal vein thrombosis previously on coumadin therapy presenting with abdominal pain. Yesterday patient developed severe 10/10 abdominal pain - band-like across the upper abdomen, feels like a twisting and pulling pain. She had some epigastric discomfort as well. Patient additionally feels that her abdomen is more full. She denies fever, chills, cough, SOB, vomiting or diarrhea Last BM was today. She is passing flatus Has intermittent nausea Patient was recently admitted to [facility] from 04/16 - 04/17 with fever and diffuse pain. Symptoms though to be secondary to viral illness. Patient has been on snf anticoagulation therapy with Coumadin due to history of portal vein thrombosis. Patient's Coumadin was discontinued on disc harge 04/17/24 due to increased risk of bleeding from history of varices and cirrhosis. Patient was seen in anticoagulation clinic by Dr. Ray on 04/22/24 who was in communication with RAYMUNDO Pitt PA-C regarding continuation of patient's Coumadin. Decision made to take patient off Coumadin and to follow for recurrence of portal vein thrombosis with serial US q 3 months. She has an appointment for imaging on May 31. Patient has had evidence of PVT present on prior imaging. CT of the Abdomen 07/26/23 revealed nonocclusive thrombus within the main portal vein, left intrahepatic portal vein and the superior mesenteric vein which was not previously seen. She had a repeat CT of the abdomen on 03/30/24 which revealed findings suggestive of stable portal hypertension - patent vasculature. Another CT of the abdomen on 04/15/24 revealed patent vasculature. Principal Diagnosis 1. Acute Hepatic Encephalopathy 2.Splenic Venous Thrombosis 3. Portal Venous thrombosis 4 Ascites 5. 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 Back Pain Discharge Exam Constitutional: WD/WN, vitals as above + morbidly obese Eyes: PERRL, conjunctivae normal, anicteric sclerae ENMT: external ear and nose normal, oropharynx normal Ears: no hearing impairment Neck: trachea midline, no thyromegaly trachea midline Respiratory: normal respiratory effort, lungs clear to auscultation normal respiratory effort and + respiratory distress; no labored breathing and no retractions Auscultation: lungs clear to auscultation bilaterally Cardiovascular: RRR, no murmur, no edema Rate/Rhythm: regular rate and regular rhythm Chest (Breasts): normal inspection/palpation of breasts Chest: normal inspection of chest Gastrointestinal (Abdomen): Inspection/Auscultation: + abdomen distended and normal bowel sounds Percussion/Palpation: Tender, dull on persussion and tense Psychiatric: Orientation: alert, oriented x 3 and cooperative Discharge Data Allergies Allergy/AdvReac Type Severity Reaction Status Date / Time menthol Allergy Severe Anaphylaxis Verified 04/30/24 01:50 mint Allergy Severe Anaphylaxis Verified 04/30/24 01:50 Consultations 04/30/24 03:17 ED Decision to Admit Stat 04/30/24 06:59 Consult Gastroenterology Routine 05/03/24 09:10 Consult Hematology Routine 05/04/24 09:57 Consult Infectious Diseases Routine Ordered Studies 04/29/24 22:03 CT abd pelvis wo con Stat 04/30/24 01:59 US portal veins duplex [US duplex portal hepatic veins] Stat 04/30/24 08:36 CT abd pelvis oral and IV con Stat 05/01/24 22:25 CT abdomen pelvis wo/w con Stat 05/03/24 09:13 CT abd pelvis oral and IV con Routine 05/10/24 IR paracentesis abd w/img US Routine 05/12/24 10:20 CT Abd and Pelvis [CT abd pelvis wo con] Urgent 05/14/24 09:22 IR paracentesis abd w/img US Urgent Hospital Course (1) Metabolic alkalosis: (2) Warfarin anticoagulation: (3) Pleural effusion: (4) Hematoma: (5) Bacteremia: (6) Leukocytosis: (7) Streptococcal bacteremia: (8) Acute generalized abdominal pain: (9) Blister of buttock with infection: (10) Cirrhosis of liver not due to alcohol: (11) Hypokalemia: (12) Hypomagnesemia: (13) T2DM (type 2 diabetes mellitus): (14) Lump of right breast: (15) Portal vein thrombosis: (16) Bacteremia due to group B Streptococcus: (17) Cellulitis of left lower extremity without foot: (18) Cirrhosis of liver: Mason Wylie is a 63 Y O Female with PMH of Cirrhosis of liver from known Hep C infection, Type II DM, Morbid Obesity (BMI 0f 40 -44.9) and 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 (1) Acute metabolic encephalopathy: -Ammonia(05/04): 122; Patient was lethargic, moaning and confused - Lactulose to 20 g PO twice daily to maintain target Bowel Movement of 2 to 3 per day. - Opioids use may have contributed to encephalopathy; minimize opioid use - Continue Rifaximin 550 mg PO BID (2) Acute generalized abdominal pain: -Likely due to SMV thrombosis, Splenic Vein Thrombosis and Portal Vein Thrombosis -Her recent EGD(07/15) revealed presence of duodenal ulcerations. -H pylori stool Ag: Negative -CT(A+P)(05/03): bowel wall thickening, moderate right pleural effusion , indeterminate 2 cm right breast mass. -CT (A+P)(05/12): Progressive ascites and enlarging right pleural effusion. No signs of retroperitoneal hematoma -Continue Protonix PO bid -continue Tylenol PRN and minimal use of PRN oxycodone -Follow up with Anti Coagulation Clinic for Warfarin management (3) Ascites - Chest Xray done (05/10) revealed moderate/marked right sided pleural effusion with ground glass opacities and mild cardiomegaly - Paracentesis done on 05/10. 5 Litre fluid was taken out. Recurrence of Ascites - Paracentesis on 05/15: 5 Litre fluid was taken out . Patient feels better after the procedure - Continue Lasix 40 mg PO daily and spironolactone 100 mg PO Daily (4) Portal vein thrombosis: - ContinueWarfarin 7.5 Mg PO daily - Followup Anti coagulation Clinic within a week (5) Decompensated Cirrhosis of liver: -Known cirrhosis from hepatitis C infection. - She was treated for HCV previously in 2020 as per review of GI notes. HCV antibody here is positive but viral load undetectable -MELD score of 7 to 10% Mortality -Needs to establish Care with Hepatology -Continue nadolol 20 mg PO daily -Paracentesis done on (05/10) with 5 litre fluid out . Culture report shows no growth; Peritoneal color Yellow;Peritoneal WBC 328 and (6) Bacteremia: -Blood cultures (04/29) shows growing Streptococcus mitis resistant to tetracycline and erythromycin- - Also with abnormal UA, but urine culture mixed skin eliezer -Repeat Blood Cultures shows no growth-continue to follow -Echocardiogram- revealed Normal left ventricular size and systolic function, mild to moderate concentric left ventricular hypertrophy, EF of 65 to 70%and no visualized vegetation -ID recommends to complete a 14 day course of antibiotics for Strep mitis/oralis bacteremia from date of cleared blood cultures 05/04-05/17. - Ceftriaxone 2 g IV q24h while inpatient 14 days course completed (7) T2DM (type 2 diabetes mellitus): - Continue Farxiga 10mg PO Daily (8) Lump of right breast: - Breast Ultrasound(09/2023): Highly suspicious for malignancy of right breast, no mammographic evidence of malignancy in the left breast - Scheduled for Right breast mammography and diagnostic ultrasound next week (9) Hematoma - She fell at home and sustained an injury to her back when she was going to the bathroom. - Hematoma covering the left thoracic and lumbar region slightly above her buttocks. - CT abdomen and pelvis (05/12) revealed progressive ascites and enlarging right pleural effusion with right lower love atelectasis. No evidence of retroperitoneal hematoma. - Advised to use ice packs over hematoma (10)Pleural Effusion -Chest Xray done (05/10) revealed moderate/marked right sided pleural effusion with ground glass opacities and mild cardiomegaly - Under 3 litre of O2 -Consulted Pulmonology. According to Pulmonology, To perform thoracentesis risk of hemothorax is high given her BMI, Low Platelets and Anticoagulated state. Recommended indwelling catheter once infectious agent are completely resolved. Appreciate Pulmonology Recs - Continue Lasix and Spironolactone (11) Back pain -Complaining of pain in mid thoracic region from 05/15 -XR thoracic, lumbar and sacral region: Negative for fracture or dislocation. Mild degenerating changes seen. - Tylenol 500 mg TID for pain Total Time Total Time Spent Total Time Spent (In Minutes): >30 Discharge Plan Discharge Items Patient Disposition: Home - Self-Care Reason For Visit: ABDOMINAL PAIN Discharge Diagnosis: 1. Acute Hepatic Encephalopathy 2.Splenic Venous Thrombosis 3. Portal Venous thrombosis 4 Ascites 5. 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 Back Pain Activity: Per Instructions section Non-emergency contact: Primary Care Provider and Women'S Garment Fitter Call non-emergency contact if: you have any medication questions and your symptoms worsen Follow-up/Referrals: Karin Ray MD, PhD [Pathologist] - 05/20/24 1:30 pm ([facility]) Lucila Dudley DO [Primary Care Provider] - (Please schedule hospital discharge follow up appointment within 1 week of discharge.) Diet: Low Sodium (2gm) Ambulatory Orders: US breast RT complete (Routine) Timeframe: 1 Week Location: Determined by Patient Ordered By: Edith Almanza MM stereotactic breast bx RT (Routine) Timeframe: 1 Week Location: Determined by Patient Ordered By: Edith Mathewtl Attending Provider Instructions: You presented to ER with abdominal pain in the setting of known liver cirrhosis. During your hospital admission you were found to have a thrombosis/blood clot which was leading to more abdominal pain so the decision was made to restart your blood thinner (Warfarin). You also underwent two paracentesis procedures to remove fluid from your abdomen, you may continue to need paracentesis procedures as an outpatient which can be arranged by your PCP if needed. We also discussed that it is very important for you to follow up for additional imaging studies for your breast mass. Follow-up appointments: Make a follow-up appointment with your PCP within the next week. It is very important that you follow up with them shortly after discharge from the hospital. You have an appointment with on [facility] on 05/20/24 at 10:45 AM. Please call [phone] for further information You have followup with anticoagulation clinic for management of Warfarin. They will reach out to you regarding details Medications: Your medication list has been reviewed and reconciled upon discharge to ensure accuracy and continuity of care. An updated list of all your medications is included with your hospital discharge paperwork. Please review this list closely, and make note of any changes. * We sent a new medication called Rifaximin to your pharmacy. Take Rifaximin 550 mg PO two times a day * We sent a new medication called Spironolactone to your pharmacy. Take Spironolactone 100mg once every day * We sent a new medication called Lasix to your pharmacy. Take Lasix 40mg once every day * A new prescription was sent for Warfarin 7.5 mg daily. We have placed a referral for you to follow up with [facility] for management of your Warfarin prescription. * A new prescription was also sent for Lactulose 20g twice daily. * We have sent a limited prescription for oxycodone 5mg every 6 hours. This medicine should be used sparingly, I recommend also using a lidocaine patch which can also provide pain relief. * A new prescription was also sent for pantoprazole 40mg twice daily. * We have also given you a written prescription for a glucometer and test s trips. We recommend you check your blood sugar several times per day to monitor your blood sugar levels. Please take this information with you to your follow up appointment with your PCP. CONTACT YOUR PRIMARY CARE PROVIDER if you experience any of the following: Increased abdominal distension , trouble breathing Bleeding from any sites of your body Difficulty following your treatment plan, or difficulty taking medications CALL 911 OR GO TO THE EMERGENCY DEPARTMENT if you experience any of the following: Sudden, severe abdominal pain or nausea/vomiting Severe chest pain, or chest pain that radiates (moves) to your jaw or arm Sudden, severe shortness of breath or difficulty breathing Thank you for allowing us to participate in your care. Pending Studies at Discharge: No Stand-Alone Forms: [employer], Smoking Cessation Medications and DC Order Prescriptions: New warfarin [Jantoven] 7.5 mg Tablet 7.5 mg PO DAILY@1600 30 Days Qty: 30 1RF spironolactone 100 mg Tablet 100 mg PO QAM 30 Days Qty: 30 1RF acetaminophen [Tylenol Extra Strength] 500 mg Tablet 500 mg PO Q8H 3 Days Qty: 9 0RF pantoprazole 40 mg Tablet,Delayed Release (Dr/Ec) 40 mg PO BID 30 Days Qty: 60 1RF Xifaxan 550 mg Tablet 550 mg PO BID 30 Days Qty: 60 1RF furosemide [Lasix] 40 mg tablet 40 mg PO DAILY 30 Days Qty: 30 1RF lactulose 10 gram/15 mL Solution 20 g PO BID 30 Days Qty: 1800 0RF oxycodone 5 mg tablet 5 mg PO Q8H PRN (Reason: pain) Qty: 10 0RF Continued nadolol 20 mg tablet 20 mg PO DAILY dapagliflozin propanediol [Farxiga] 10 mg tablet 10 mg PO DAILY ondansetron 4 mg tablet,disintegrating 4 mg PO TID PRN (Reason: n/v) Qty: 20 0RF Discontinued gabapentin 400 mg capsule 400 mg PO TID spironolactone 1 tab PO DAILY Rx Instructions: pt cannot recall the dose and is not verifiable through surescripts Discharge Orders: Discharge Order (Routine); Ordered 05/17/24 Ordered By: Gail Angeles Admission Data Admit Date/Time: 05/03/24 07:20 Attending Provider: Frank Mazariegos Admit Provider: Rosa Maria Myrick Primary Care Provider: Lucila Dudley Other Providers: Rosa Maria Myrick; Domingo Villarreal Jr; Roc John Other Interventions: Discharge Summary Assessment (RN) Last Done: 05/17/24 15:59 Supervising Physician Co-Signing Physician Notes I personally examined the patient and verified all garcia points of history and exam, discussed case, and agree with decision making with Dr Almanza feeling better getting around well would like to go home. ~50mins face to face in the room w electrical & instrumentation supervisor and son. answered all questions to the best of my ability vitals onted nad heent nc at mmm breathing unlabored no accessory muscles good effort skin no rashes no pallor or icterus IMPRESSION & PLAN hepatitis C associated cirrhosis, status post Mavyret 12-week therapy completed in 2020 history of Portal vein thrombosis thrombocytopenia Abdominal pain Continue Xifaxan, Lasix, Aldactone Lactulose BID Continue warfarin, discussed risks/benefits w pt and son safe/stable for home Additional per resident documentation Resident Activity Tracking Resident Involvement: Resident Care Provided Care Provided: Adult ED
--- NOTE | 2024-05-17 18:37 | Billing Data ---
Date of Service May 17, 2024 Coding Level of Care Code 50472 INP/OBS DISCH >30 MIN
== END 2024-05-17 16:38 | disposition home or self-care (01) | DRG 441 ==
LOC: ED 21:43 → EDINP 21:43 → SUATTDRO 04-30 02:24 → 3E 04-30 05:41 → SUATTDRO 05-03 07:20 → 2S 05-04 13:37 → 3W 05-08 16:23 → 3E 05-08 21:25
DX: E66.01 Morbid (severe) obesity due to excess calories; N63.10 Unspecified lump in the right breast, unspecified quadrant; Z87.11 Personal history of peptic ulcer disease; K76.82 Hepatic encephalopathy; J90 Pleural effusion, not elsewhere classified; I85.10 Secondary esophageal varices without bleeding; E87.3 Alkalosis; Z68.41 Body mass index [BMI] 40.0-44.9, adult; Z86.718 Personal history of other venous thrombosis and embolism; R18.8 Other ascites; Z16.29 Resistance to other single specified antibiotic; Z88.8 Allergy status to other drugs, medicaments and biological substances; R78.81 Bacteremia; E11.65 Type 2 diabetes mellitus with hyperglycemia; G93.41 Metabolic encephalopathy; K59.00 Constipation, unspecified; E72.29 Other disorders of urea cycle metabolism; J94.8 Other specified pleural conditions; Z91.018 Allergy to other foods; S30.0XXA Contusion of lower back and pelvis, initial encounter; D73.5 Infarction of spleen; K74.69 Other cirrhosis of liver; B18.2 Chronic viral hepatitis C; Z79.899 Other long term (current) drug therapy; I81 Portal vein thrombosis; K55.069 Acute infarction of intestine, part and extent unspecified; K76.6 Portal hypertension; W19.XXXA Unspecified fall, initial encounter; D69.6 Thrombocytopenia, unspecified; B95.4 Other streptococcus as the cause of diseases classified elsewhere